=== PATIENT | male | born 1930 | race Caucasian/White ===

== ENCOUNTER 2016-12-23 17:17 | Emergency (ER) | payer OTHER ==
[~2016-12-23] VITALS: Ht 162.6 cm; Wt 78.0 kg
[~2016-12-23 17:17] MED LIST: ALLO100T PO; ALLO100T64 PO; ENAL10TA PO; METO-448 PO; TRAM50TA2 PO
[2016-12-23 17:19] VITALS: Ht 162.6 cm; Wt 78.0 kg
[2016-12-23] MEDS ORDERED: morphine 4 MG/ML VIAL IV STA (18:05)
[2016-12-23] MEDS ORDERED: ONDANSETRON 4 MG INJ IV STA (18:05)
[2016-12-23] MEDS ORDERED: SOD CHLORIDE 0.9% 1,000 ML IV STA (18:05)
[2016-12-23 18:36] LABS: ADD UMIC YES; URINE BILIRUBIN (Dip) NEGATIVE (NEGATIVE); URINE BLOOD (Dip) TRACE (NEGATIVE); URINE COLOR LT. YELLOW (YELLOW); URINE GLUCOSE (Dip) NEGATIVE (NEGATIVE); URINE KETONES (Dip) NEGATIVE (NEGATIVE); URINE LEUKOCYTE ESTERASE (Dip) NEGATIVE (NEGATIVE); URINE NITRITE (Dip) NEGATIVE (NEGATIVE); URINE TOTAL PROTEIN (Dip) 2+ (NEGATIVE); URINE UROBILINOGEN (Dip) 0.2 E.U./dL (0.1-1.0)
[2016-12-23 18:57] LABS: BACTERIA,URINE FEW; URINE RBCS 0-2 /HPF (0)
[2016-12-23 19:48] LABS: ADD SCAN DIFF NO
[2016-12-23 19:51] LABS: BASOPHILS % 0.2 % (0.0-2.0); EOSINOPHILS # 0.1 10^3/ul (0.0-0.5); EOSINOPHILS % 0.5 % (0.0-7.0); HEMATOCRIT 33.3 % (42.0-52.0); HEMOGLOBIN 11.3 g/dl (14.0-18.0); LYMPHOCYTES # 1.7 10^3/ul (0.8-2.9); LYMPHOCYTES % 12.4 % (15.0-51.0); MEAN CORPUSCULAR HEMOGLOBIN 31.9 pg (29.0-33.0); MEAN CORPUSCULAR HGB CONC 33.9 g/dl (32.0-37.0); MEAN CORPUSCULAR VOLUME 94.1 fl (82.0-101.0); MEAN PLATELET VOLUME 10.2 fl (7.4-10.4); MONOCYTES % 7.8 % (0.0-11.0); NEUTROPHIL # 10.4 10^3/ul (1.6-7.5); NEUTROPHILS % 78.3 % (39.0-77.0); PLATELET COUNT 348 10^3/UL (140-415); RED BLOOD COUNT 3.54 10^6/ul (4.70-6.10); RED CELL DISTRIBUTION WIDTH 12.6 % (11.5-14.5); WHITE BLOOD COUNT 13.3 10^3/ul (4.8-10.8)
[2016-12-23 20:01] LABS: ALBUMIN 3.9 g/dl (3.3-4.9); CHLORIDE 93 mmol/L (97-110)
[2016-12-23 20:02] LABS: SODIUM 125 mmol/L (135-144)
[2016-12-23 20:04] LABS: ALBUMIN/GLOBULIN RATIO 1.08; ALKALINE PHOSPHATASE 108 IU/L (42-121); ANION GAP 19 (8-16); ASPARTATE AMINO TRANSFERASE 42 IU/L (15-46); BILIRUBIN,INDIRECT 0.8 mg/dl (0-1.1); BILIRUBIN,TOTAL 0.8 mg/dl (0.2-1.3); BLOOD UREA NITROGEN 18 mg/dl (7-20); CARBON DIOXIDE 17 mmol/L (21-31); CREATININE 1.03 mg/dl (0.61-1.24); TOTAL PROTEIN 7.5 g/dl (6.1-8.1)
[2016-12-23 20:05] LABS: ALANINE AMINOTRANSFERASE 23 IU/L (13-69); CALCIUM 8.7 mg/dl (8.4-10.2); GLUCOSE 95 mg/dl (70-220)
--- NOTE | 2016-12-23 20:13 | RADRPT ---
PROCEDURE: Right upper quadrant ultrasound. CLINICAL INDICATION: Right upper quadrant pain. TECHNIQUE: Multiple real-time longitudinal and transverse images of the right upper quadrant of th e abdomen were acquired utilizing a curved array transducer. Images were reviewed on a high-resoluti on PACS workstation. COMPARISON: None. FINDINGS: The pancreas is not well seen. The liver is echogenic. The liver measures 9.9 cm in length. No intrahepatic biliary ductal dilata tion is seen. There is a 2.2 cm simple cyst in the right hepatic lobe. The portal vein is patent wit h hepatopetal flow. A 1.4 cm non mobile stone is identified in the gallbladder neck. The gallbladder wall is not thicke nolan. There is no pericholecystic fluid. The common bile duct measures 4 mm in diameter, not dilated . The right kidney measures 9.4 cm in length. Renal echogenicity is normal. There is no hydronephros is, urinary calculus, or renal mass. The visualized portions of the aorta and IVC are unremarkable. IMPRESSION: 1. Cholelithiasis without evidence of cholecystitis. 2. No biliary dilatation. 3. Fatty infiltration of the liver. RPTAT: HTAR .Robert Cat MD, Date Time Electronically viewed and signed by .Robert Cat MD, on 12/23/2016 20:13 .R/
[2016-12-23 20:21] LABS: TROPONIN-I < 0.012 ng/ml (0.00-0.12)
[2016-12-23] MEDS ORDERED: IOHEXOL 100 ML ONE (20:21)
[2016-12-23] MEDS ORDERED: SOD CHLORIDE 0.9% 100 ML ONE (20:21)
[2016-12-23] MEDS ORDERED: IOHEXOL 350MG/ML 50 ML BTL ONE (20:21)
[2016-12-23 20:31] LABS: INR 0.95; PROTIME 12.7 Sec (12.2-14.2)
[2016-12-23 20:32] LABS: PARTIAL THROMBOPLASTIN TIME 32.8 Sec (25.0-35.0)
[2016-12-23] MEDS ORDERED: DOCU-144 PO (20:52)
[2016-12-23] MEDS ORDERED: HYDR-902 PO (20:52)
--- NOTE | 2016-12-23 20:59 | RADRPT ---
PROCEDURE: XR Chest. CLINICAL INDICATION: Pain TECHNIQUE: AP Portable chest. COMPARISON: 03/24/2016 chest x-ray FINDINGS: The soft tissues and bones are normal. No focal infiltrates, masses, or effusions are noted. A righ t upper lobe 7 mm calcified granuloma is present. This is unchanged from prior study. The mediastin um and heart are remarkable for mild vascular calcification of the thoracic aorta. No pneumothorax is present. IMPRESSION: 1. No radiographic evidence for acute cardiopulmonary disease and unchanged from prior chest x-ray 2. 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 Mild atherosclerotic vascular disease RPTAT: HDC .Patricia Mackay MD, MD Date Time Electronically viewed and signed by .Patricia Mackay MD, on 12/23/2016 20:59 .C/
--- NOTE | 2016-12-23 21:01 | ERD ---
ER Documentation Chief Complaint Date/Time DATE: 12/23/16 TIME: 20:54 Chief Complaint back pain x 6 days HPI Patient is an 86-year-old male with hypertension and gout who presents with right-sided back pain. He also feels right-sided rib pain. It has been there for the past 6 days. It is worse with movement. He felt nausea but had no vomiting. He had 2 episodes of diarrhea over the past 24 hours. He saw his primary doctor Dr. Tasha Quesada 2 days ago and was given a prescription for Cipro and meloxicam. However the pain is still there and he wanted to get evaluated. ROS All systems reviewed and are negative except as per history of present illness. Medications Home Meds Active Scripts Docusate Sodium* (Colace*) 100 Mg Capsule, 100 MG PO TID, #30 CAP Prov:LAVON HUNTER MD 12/23/16 Hydrocodone/Acetaminophen (Cosmos 10-325 Tablet) 1 Each Tablet, 1 TAB PO Q6H Y for PAIN, #7 TAB Prov:LAVON HUNTER MD 12/23/16 Tramadol HCl (Tramadol HCl) 50 Mg Tablet, 50 MG PO Q6H Y for PAIN, #30 TAB Prov:SUZIE COPELAND 03/26/16 Metoprolol Tartrate* (Lopressor*) 25 Mg Tab, 25 MG PO DAILY for 30 Days, TAB Prov:SUZIE COPELAND 03/26/16 Reported Medications Enalapril Maleate* (Enalapril Maleate*) 10 Mg Tablet, 10 MG PO DAILY, TAB 09/29/16 Allopurinol* (Allopurinol*) 100 Mg Tablet, 200 MG PO BID, TAB 09/29/16 Allopurinol* (Zyloprim*) 100 Mg Tablet, 100 MG PO BID 02/17/13 Allergies Allergies: Coded Allergies: No Known Allergy (Unverified , 09/29/16) PMhx/Soc History of Surgery: No Anesthesia Reaction: No Hx Neurological Disorder: No Hx Respiratory Disorders: Yes Hx Cardiac Disorders: Yes (htn) Hx Psychiatric Problems: No Hx Miscellaneous Medical Probl: Yes (Htn, gout) Hx Alcohol Use: No Hx Substance Use: No Hx Tobacco Use: No Smoking Status: Never smoker FmHx Family History: No diabetes Physical Exam Vitals Vital Signs Date Time Temp Pulse Resp B/P Pulse Ox O2 Delivery O2 Flow Rate FiO2 12/23/16 17:19 98.1 99 20 170/89 99 Physical Exam Const: Mild distress secondary to pain Head: Atraumatic Eyes: Normal Conjunctiva ENT: Normal External Ears, Nose and Mouth. Neck: Full range of motion..~ No meningismus. Resp: Clear to auscultation bilaterally Cardio: Regular rate and rhythm, no murmurs Abd: Soft, non tender, non distended. Normal bowel sounds Skin: No petechiae or rashes Back: No midline or flank tenderness Ext: Right-sided rib pain with palpation but no sign of rash Neur: Awake and alert Psych: Normal Mood and Affect Result Diagram: 12/23/16192912/23/161929 Results 24 hrs Laboratory Tests Test 12/23/16 18:19 12/23/16 19:30 Urine Color LT. YELLOW Urine Clarity CLEAR Urine pH 6.0 Urine Specific Hopkins 1.010 Urine Ketones NEGATIVE Urine Nitrite NEGATIVE Urine Bilirubin NEGATIVE Urine Urobilinogen 0.2 E.U./dL Urine Leukocyte Esterase NEGATIVE Urine Microscopic RBC 0-2/HPF Urine Microscopic WBC 0-2/HPF Urine Epithelial Cells OCCASIONAL Urine Bacteria FEW Urine Hemoglobin TRACE Urine Glucose NEGATIVE% Urine Total Protein 2+ White Blood Count 13.310^3/ul Red Blood Count 3.5410^6/ul Hemoglobin 11.3g/dl Hematocrit 33.3% Mean Corpuscular Volume 94.1fl Mean Corpuscular Hemoglobin 31.9pg Mean Corpuscular Hemoglobin Concent 33.9g/dl Red Cell Distribution Width 12.6% Platelet Count 10815^3/UL Mean Platelet Volume 10.2fl Neutrophils % 78.3% Lymphocytes % 12.4% Monocytes % 7.8% Eosinophils % 0.5% Basophils % 0.2% Nucleated Red Blood Cells % 0.0/100WBC Neutrophils # 10.410^3/ul Lymphocytes # 1.710^3/ul Monocytes # 1.010^3/ul Eosinophils # 0.110^3/ul Basophils # 0.010^3/ul Nucleated Red Blood Cells # 0.010^3/ul Prothrombin Time 12.7Sec Prothrombin Time Ratio 1.0 INR International Normalized Ratio 0.95 Activated Partial Thromboplast Time 32.8Sec Sodium Level 125mmol/L Potassium Level 4.0mmol/L Chloride Level 93mmol/L Carbon Dioxide Level 17mmol/L Anion Gap 19 Blood Urea Nitrogen 18mg/dl Creatinine 1.03mg/dl Glucose Level 95mg/dl Calcium Level 8.7mg/dl Total Bilirubin 0.8mg/dl Direct Bilirubin 0.00mg/dl Indirect Bilirubin 0.8mg/dl Aspartate Amino Transf (AST/SGOT) 42IU/L Alanine Aminotransferase (ALT/SGPT) 23IU/L Alkaline Phosphatase 108IU/L Troponin I < 0.012ng/ml Total Protein 7.5g/dl Albumin 3.9g/dl Globulin 3.60g/dl Albumin/Globulin Ratio 1.08 Lipase 154U/L Current Medications Medications (Trade) Dose Ordered Sig/Karthikeyan Route PRN Reason Start Time Stop Time Status Last Admin Dose Admin Sodium Chloride (NS) 1,000 ml @ 1,000 mls/hr Q1H STAT IV 12/23/16 18:05 12/23/16 19:04 DC 12/23/16 19:25 Morphine Sulfate (morphine) 4 mg ONCE STAT IV 12/23/16 18:05 12/23/16 18:07 DC 12/23/16 19:25 Ondansetron HCl (Zofran Inj) 4 mg ONCE STAT IV 12/23/16 18:05 12/23/16 18:07 DC 12/23/16 19:25 IV Flush 10 ml 10 ml STK-MED ONCE .ROUTE 12/23/16 20:21 12/23/16 20:22 DC 12/23/16 20:47 Sodium Chloride 100 ml @ ud STK-MED ONCE .ROUTE 12/23/16 20:21 12/23/16 20:22 DC 12/23/16 20:49 Iohexol (Omnipaque) 100 ml @ ud STK-MED ONCE .ROUTE 12/23/16 20:21 12/23/16 20:22 DC 12/23/16 20:47 Iohexol (Omnipaque 350mg/ ml) 50 ml STK-MED ONCE .ROUTE 12/23/16 20:21 12/23/16 20:22 DC 12/23/16 20:48 Procedures/MDM Chest X-ray 1V Interpreted by me: Soft Tissue: No acute abnormalities Bones: No acute abnormalities Mediastinum/Cardiac Silhouette/Lungs: No acute abnormalities EKG read by me: Rate/Rhythm: Regular rate and rhythm at a normal rate Intervals: Normal Impression: No evidence of ischemia or arrhythmia CT scan of the chest, abdomen, and pelvis is pending radiology read at this time. Patient is a 86-year-old male presents with right-sided back and flank pain. The patient has anemia. The patient also has hyponatremia and a mild acidosis. The patient had full workup including EKG, chest x-ray, and CT scan of the chest, abdomen, and pelvis. The patient has CT results pending at this time. The patient will be signed out to the oncoming physician to follow-up on the CT scan results. If the CT scan is negative for pulmonary embolism or other serious etiology I believe outpatient management would be appropriate and the patient will be given a prescription for Cosmos and Colace. However the patient will need close follow-up with the primary doctor within 24 hours for reevaluation. The patient can return sooner for any worsening symptoms. At this point I see no signs of rib fracture, pneumonia, or pneumothorax. I doubt acute coronary syndrome. I doubt aortic dissection. CT scan is pending to look for pulmonary embolism. Departure Diagnosis: Primary Impression: Rib pain Additional Impressions: Back pain Back pain location: thoracic back pain Chronicity: acute Back pain laterality: right Qualified Code: M54.6 - Acute right-sided thoracic back pain Anemia Anemia type: unspecified type Qualified Code: D64.9 - Anemia, unspecified type Hyponatremia Condition: Fair Patient Instructions: Back Pain (Acute Or Chronic), Rib Contusion Additional Instructions: Llame al doctor LINDA y isa denise YURI PARA DENTRO DE 1-2 EPSTEIN.Dgale a la secretaria que nosotros le instruimos hacer esta yuri.Avise o llame si villasenor condicin se empeora antes de la yuri. Regresa aqui si peor o no mejor. LAVON HUNTER MD Dec 23, 2016 21:00
--- NOTE | 2016-12-23 21:24 | RADRPT ---
PROCEDURE: CTA Chest. CLINICAL INDICATION: Chest pain, rule out pulmonary embolism. TECHNIQUE: Direct spiral 1.25 mm axial sections were obtained from the thoracic inlet to the upper abdomen with the use of 110 cc of Omnipaque 350 nonionic intravenous contrast material. Axial MIP, coronal, and sagittal reformations were obtained. The images were reviewed on a PACS workstation. CT DIvol: 16.28 mGy. DLP: 572.03 mGy-cm. One or more of the following dose reduction techniques were used: - Automated exposure control. - Adjustment of the mA and/or kV according to patient size. - Use of iterative reconstruction technique. COMPARISON: None. FINDINGS: There is no pulmonary embolism. The main pulmonary artery is normal in caliber. There is no aortic aneurysm. The heart is normal in size. There is no pericardial effusion. There are dependent atelectatic changes in the lungs. There is no pulmonary edema or consolidation. A calcified granuloma is identified in the right upper lobe. No pleural effusion or pneumothorax is identified. No suspicious thyroid lesion is seen. There is no thoracic lymphadenopathy. The trachea and mainste m bronchi are patent. There is an acute appearing T12 burst fracture with 20% loss of anterior vertebral body height and 4 mm retropulsion. No spinal canal stenosis is seen as a result Findings in the upper abdomen are reported separately. IMPRESSION: 1. No pulmonary embolism. 2. No pulmonary edema or consolidation. 3. Acute appearing T12 burst fracture with 20% loss of anterior vertebral body height and 4 mm retr opulsion. No spinal canal stenosis is seen as a result. RPTAT: HTAR .Robert Cat MD, MD Date Time Electronically viewed and signed by .Robert Cat MD, MD on 12/23/2016 21:23 .R/
--- NOTE | 2016-12-23 21:31 | RADRPT ---
PROCEDURE: CT Abdomen and Pelvis with contrast. CLINICAL INDICATION: Flank pain. TECHNIQUE: A CT scan of the abdomen and pelvis was performed with intravenous contrast. The patie nt was scanned following the uncomplicated intravenous administration of 110 cc of Omnipaque 350. C oronal and sagittal reformatted images were obtained from the axial source images. Images were revie wed on a high-resolution PACS workstation. CTDIvol: 13.14 mGy. DLP: 727.97 mGy-cm. One or more of the following dose reduction techniques were used: - Automated exposure control. - Adjustment of the mA and/or kV according to patient size. - Use of iterative reconstruction technique. COMPARISON: None. FINDINGS: Findings in the lower chest are reported separately. There are cysts in both hepatic lobes measuring up to 2.2 cm on the right. There is a stone in the g allbladder. The common bile duct is not dilated. The spleen is not enlarged. No pancreatic lesion i s identified and there is no pancreatic ductal dilatation. The adrenal glands are unremarkable. The kidneys are normal in size. There is no perinephric fat stranding. No hydronephrosis is seen. Th ere are cysts in both kidneys measuring up to 1.4 cm on the left. There is very subtle infiltration of the central mesenteric fat, probably not clinically significant . The small and large bowel are normal in caliber. The transverse, descending, and rectosigmoid col on is underdistended, limiting evaluation for colonic wall thickening. The appendix is normal. The urinary bladder is unremarkable. The pelvic organs are within normal limits. No lymphadenopathy is identified. There is no ascites. No pneumoperitoneum is seen. There are mild t o moderate arterial calcifications. There is a small to moderate fat-containing umbilical hernia. No suspicious osseous lesion is idenitified. There are moderate to severe degenerative changes along the lower lumbar spine. IMPRESSION: 1. Limited evaluation for transverse, descending, and rectosigmoid colon wall thickening due to col onic underdistension. A mild colitis cannot be excluded in these regions. 2. Cholelithiasis. 3. Normal appendix. 4. Mild to moderate atherosclerotic arterial calcifications. 5. Small to moderate fat-containing umbilical hernia. 6. Moderate to severe degenerative changes along the lower lumbar spine. RPTAT: HTAR .Robert Cat MD, MD Date Time Electronically viewed and signed by .Robert Cat MD, MD on 12/23/2016 21:31 .R/
== END 2016-12-23 22:05 | disposition home or self-care (01) ==
LOC: FTE 17:17
DX: R07.81 Pleurodynia (principal); R11.0 Nausea; M54.6 Pain in thoracic spine; D64.9 Anemia, unspecified; E87.1 Hypo-osmolality and hyponatremia; R10.9 Unspecified abdominal pain; I10 Essential (primary) hypertension
CPT/HCPCS: 71010; 71275; 74177; 76705; 80053; 81001; 83690; 84484; 85025; 85610; 85730; 93005; J2270; J2405; J7030; Q9967; Z7610; 36415; 81003; 96374; 96375

== ENCOUNTER 2017-02-28 22:23 | Inpatient (IN) | payer OTHER ==
[~2017-02-28] VITALS: Ht 157.5 cm; Wt 75.0 kg
[~2017-02-28 22:23] MED LIST changes: +DOCU-144 PO; +HYDR-902 PO
--- NOTE | 2017-02-28 23:55 | ERA ---
ER Documentation Chief Complaint Date/Time DATE: 02/28/17 TIME: 23:55 Chief Complaint abdominal pain with diarrhea for past day HPI The patient is a 86-year-old male, presenting to the ER because of abdominal pain, associated with diarrhea for the last 5 days. She denies any hematemesis or hematochezia, denies fever, chills, neck pain, chest pain, dyspnea. The abdominal pain is diffuse and moderate, no aggravating or relieving factor. She denied dysuria, polyuria. She does not smoke, drink Past medical history: Hypertension, chronic kidney disease, gout, history of T12 burst fracture Past surgical history: She recently had esophagogastroduodenoscopy and [facility] that show ulcer, details unclear ROS All systems reviewed and are negative except as per history of present illness. Medications Home Meds Active Scripts Docusate Sodium* (Colace*) 100 Mg Capsule, 100 MG PO TID, #30 CAP Prov:LAVON HUNTER MD 12/23/16 Hydrocodone/Acetaminophen ([place] 10-325 Tablet) 1 Each Tablet, 1 TAB PO Q6H Y for PAIN, #7 TAB Prov:LAVON HUNTER MD 12/23/16 Tramadol HCl (Tramadol HCl) 50 Mg Tablet, 50 MG PO Q6H Y for PAIN, #30 TAB Prov:SUZIE COPELAND 03/26/16 Metoprolol Tartrate* (Lopressor*) 25 Mg Tab, 25 MG PO DAILY for 30 Days, TAB Prov:SUZIE COPELAND 03/26/16 Reported Medications Enalapril Maleate* (Enalapril Maleate*) 10 Mg Tablet, 10 MG PO DAILY, TAB 09/29/16 Allopurinol* (Allopurinol*) 100 Mg Tablet, 200 MG PO BID, TAB 09/29/16 Allopurinol* (Zyloprim*) 100 Mg Tablet, 100 MG PO BID 02/17/13 Allergies Allergies: Coded Allergies: No Known Allergy (Unverified , 09/29/16) PMhx/Soc History of Surgery: No Anesthesia Reaction: No Hx Neurological Disorder: No Hx Respiratory Disorders: Yes Hx Cardiac Disorders: Yes (htn) Hx Psychiatric Problems: No Hx Miscellaneous Medical Probl: Yes (Htn, gout) Hx Alcohol Use: No Hx Substance Use: No Hx Tobacco Use: No Physical Exam Vitals Vital Signs Date Time Temp Pulse Resp B/P Pulse Ox O2 Delivery O2 Flow Rate FiO2 03/01/17 05:41 73 16 131/70 95 Room Air 03/01/17 03:52 76 16 153/71 97 Room Air 03/01/17 02:30 82 16 166/89 100 Room Air 03/01/17 00:28 79 16 146/67 100 Room Air 02/28/17 22:35 97.6 79 18 113/88 99 Physical Exam Const: No acute distress. Head: Atraumatic. Eyes: Normal Conjunctiva. ENT: Normal External Ears, Nose and Mouth. Neck: Full range of motion. No meningismus. Resp: Clear to auscultation bilaterally. Cardio: Regular rate and rhythm, no murmurs. Abd: Soft, non distended, normal bowel sounds, diffuse abdominal tenderness, no rigidity, rebound, CVA tenderness Skin: No petechiae or rashes. Back: No midline or flank tenderness. Ext: No cyanosis, or edema. Neur: Awake and alert. No focal deficit Psych: Normal Mood and Affect. Result Diagram: 03/01/17 0958 03/01/17 0958 Results 24 hrs Laboratory Tests Test 02/28/17 00:02 03/01/17 02:17 White Blood Count 14.510^3/ul Red Blood Count 4.1310^6/ul Hemoglobin 11.8g/dl Hematocrit 37.1% Mean Corpuscular Volume 89.8fl Mean Corpuscular Hemoglobin 28.6pg Mean Corpuscular Hemoglobin Concent 31.8g/dl Red Cell Distribution Width 16.2% Platelet Count 71618^3/UL Mean Platelet Volume 10.5fl Neutrophils % 68.4% Lymphocytes % 23.7% Monocytes % 5.7% Eosinophils % 0.7% Basophils % 0.3% Nucleated Red Blood Cells % 0.0/100WBC Neutrophils # 9.910^3/ul Lymphocytes # 3.510^3/ul Monocytes # 0.810^3/ul Eosinophils # 0.110^3/ul Basophils # 0.110^3/ul Nucleated Red Blood Cells # 0.010^3/ul Sodium Level 137mmol/L Potassium Level 4.5mmol/L Chloride Level 103mmol/L Carbon Dioxide Level 21mmol/L Anion Gap 18 Blood Urea Nitrogen 26mg/dl Creatinine 1.70mg/dl Glucose Level 117mg/dl Calcium Level 9.3mg/dl Total Bilirubin 0.3mg/dl Direct Bilirubin 0.00mg/dl Indirect Bilirubin 0.3mg/dl Aspartate Amino Transf (AST/SGOT) 27IU/L Alanine Aminotransferase (ALT/SGPT) 35IU/L Alkaline Phosphatase 105IU/L Total Protein 7.0g/dl Albumin 3.5g/dl Globulin 3.50g/dl Albumin/Globulin Ratio 1.00 Lipase 369U/L Bedside Urine pH (LAB) 6.5 Bedside Urine Protein (LAB) 1+ Bedside Urine Glucose (UA) Negative Bedside Urine Ketones (LAB) Negative Bedside Urine Blood Negative Bedside Urine Nitrite (LAB) Negative Bedside Urine Leukocyte Esterase (L Negative Current Medications Medications (Trade) Dose Ordered Sig/Karthikeyan Route PRN Reason Start Time Stop Time Status Last Admin Dose Admin Sodium Chloride (NS) 500 ml @ 500 mls/hr Q1H ONCE IV 03/01/17 01:00 03/01/17 01:59 DC 03/01/17 00:50 Morphine Sulfate (morphine) 2 mg ONCE ONCE IV 03/01/17 04:00 03/01/17 04:01 DC 03/01/17 03:40 Ondansetron HCl 4 mg 4 mg ONCE STAT IV 03/01/17 03:32 03/01/17 03:35 DC 03/01/17 03:39 Piperacillin Sod/ Tazobactam Sod (Zosyn 2.25gm/ 50ml (Pmx)) 50 ml @ 100 mls/hr ONCE ONCE IVPB 03/01/17 04:00 03/01/17 04:29 DC 03/01/17 03:48 Morphine Sulfate (morphine) 2 mg ONCE ONCE IV 03/01/17 05:30 03/01/17 05:31 DC 03/01/17 05:24 Procedures/[place] [id number] Radiology Main Line: [phone] DIAGNOSTIC IMAGING REPORT Patient: WILLIAM BRITTON : 1930 Age: 86 Sex: M MR #: [id number] DOS: 03/01/17 0332 Ordering MD: MAGNOLIA PIERRE MD Location: E/R Room/Bed: PROCEDURE: ULTRASOUND LIMITED ABDOMEN CLINICAL INDICATION: 86-year-old male with abdominal pain. TECHNIQUE: Multiple sonographic of the right upper quadrant of the abdomen were obtained. The images were reviewed on a PACS workstation. COMPARISON: CT abdomen/pelvis March 01, 2017. FINDINGS: The pancreas is not well visualized secondary to overlying bowel gas. The liver displays homogeneous echogenicity. The liver measures 17.2 cm in length. There is a right hepatic cyst measuring approximate 2.2 x 2.0 cm. No evidence of intrahepatic biliary ductal dilatation is seen. The portal and hepatic veins are unremarkable. The gallbladder contains shadowing stones. The gallbladder wall thickness is within normal limits measuring 1.7 mm. No pericholecystic fluid is seen. The common bile duct measures 3.9 mm and is not dilated. The right kidney in the visualized secondary to overlying bowel gas. No free fluid is seen. IMPRESSION: 1. Right hepatic cyst. 2. Cholelithiasis. 3. The pancreas and right kidney were not able to be visualized secondary to overlying bowel gas. .David Koenig MD, MD Date Time Electronically viewed and signed by .David Koenig MD, MD on 03/01/2017 05:07 .M/ CC: MAGNOLIA PIERRE MD [place] [id number] Radiology Main Line: [phone] DIAGNOSTIC IMAGING REPORT Patient: WILLIAM BRITTON : 1930 Age: 86 Sex: M MR #: [id number] DOS: 03/01/17 0031 Ordering MD: MAGNOLIA PIERRE MD Location: E/R Room/Bed: PROCEDURE: CT Abdomen and Pelvis without contrast. CLINICAL INDICATION: Abdominal pain. TECHNIQUE: A CT scan of the abdomen and pelvis was performed without intravenous contrast. Coronal and sagittal reformatted images were generated. Images were reviewed on a high-resolution PACS workstation. CTDIvol: 11.84 mGy. DLP: 747.36 mGy-cm. One or more of the following dose reduction techniques were used: - Automated exposure control. - Adjustment of the mA and/or kV according to patient size. - Use of iterative reconstruction technique. COMPARISON: 12/23/2016 FINDINGS: There is mild atelectasis in both lower lobes. Evaluation of the abdominal and pelvic viscera is limited by the lack of oral and intravenous contrast. There are bilateral hepatic cysts measuring up to 2.1 cm on the right. There is a stone in the gallbladder. The common bile duct is not dilated. The spleen is not enlarged. There is subtle fat infiltration in the region of the pancreas head. The adrenal glands are unremarkable. The kidneys are normal in size. There is no perinephric fat stranding. No hydronephrosis is seen. No urinary stone is identified. Two right renal parenchymal calcifications are nonspecific. There are left renal cysts measuring up to 1.3 cm. The small and large bowel are normal in caliber. The distal descending and rectosigmoid colon is underdistended, limiting evaluation for colonic wall thickening. The appendix is normal. The urinary bladder is unremarkable. The pelvic organs are within normal limits. No lymphadenopathy is identified. There is no ascites. No pneumoperitoneum is seen. There are mild aortoiliac arterial calcifications. Severe arterial calcifications are noted in both lower extremities. There is a small to moderate fat-containing umbilical hernia. No suspicious osseous lesion is idenitified. There are acute appearing burst fractures at T12 (moderate) and L1 (mild). The fracture at T12 is worsened since the prior examination, while the L1 fracture is new. There is 4 mm retropulsion at T12, leading to mild spinal canal stenosis. IMPRESSION: 1. Subtle fat infiltration in the region of the pancreas head. This is nonspecific but might represent a mild pancreatitis or possibly peptic ulcer disease. Correlation with serum amylase and lipase levels is recommended. 2. Cholelithiasis. 3. No obstructive uropathy or urinary stone. 4. Normal appendix. 5. Limited evaluation for a distal descending and rectosigmoid colon wall thickening due to underdistension. Colitis cannot be excluded in these regions. 6. Small to moderate fat-containing umbilical hernia. 7. Mild aortoiliac arterial calcifications and severe arterial calcifications in both lower extremities. 8. Acute appearing burst fractures at T12 (moderate) and L1 (mild). The fracture at T12 is worsened since the prior examination, while the L1 fracture is new. There is 4 mm retropulsion at T12, leading to mild spinal canal stenosis. These could be further evaluated with MRI if clinically warranted. RPTAT: HTAR .Robert Cat MD, MD Date Time Electronically viewed and signed by .Robert Cat MD, on 03/01/2017 02:54 .R/ CC: MAGNOLIA PIERRE MD [place] [address] Radiology Main Line: [phone] DIAGNOSTIC IMAGING REPORT Patient: WILLIAM BRITTON : 1930 Age: 86 Sex: M MR #: [id number] DOS: 03/01/17 0000 Ordering MD: MAGNOLIA PIERRE MD Location: E/R Room/Bed: PROCEDURE: CHEST - 1 VIEW CLINICAL INDICATION: 86-year-old male with shortness of breath and febrile. TECHNIQUE: A single frontal AP semi-erect portable view of the chest was performed. The images were reviewed on a PACS workstation. COMPARISON: Chest x-ray December 23, 2016; CT abdomen/pelvis December 30, 2016. FINDINGS: The cardiomediastinal silhouette is mildly enlarged. There is a shallow inspiration. There is mild bibasilar subsegmental atelectasis. There is a calcified granuloma within the right upper lung zone measuring approximately 5 x 5 mm without interval change. There is no evidence for an infiltrate. There is no evidence for congestive heart failure. There is no evidence for pneumothorax. The osseous structures are intact. IMPRESSION: 1. Cardiomegaly. 2. Shallow inspiration. 3. Mild bibasilar subsegmental atelectasis. 4. Calcified right upper lung zone 5 mm granuloma. .David Koenig MD, MD Date Time Electronically viewed and signed by .David Koenig MD, on 03/01/2017 05:37 .M/ CC: MAGNOLIA PIERRE MD MEDICAL MAKING DECISION: The patient is a 86-year-old male, presenting with acute gallstone pancreatitis. She was treated with normal saline 500 ml normal saline for clinical dehydration, morphine 2 mg IV 2 for pain and Zofran 4 mg IV 2 for nausea and Zosyn IV empirically with good response. The differential diagnoses considered include but are not limited to cholelithiasis, cholecystitis, cystitis, pancreatitis, hepatitis, gastritis, peptic ulcer disease, gastric ulcer, appendicitis, diverticulitis, cholangitis, choledocholithiasis, partial small bowel obstruction. Departure Diagnosis: Primary Impression: Gallstone pancreatitis Additional Impression: Anemia Condition: Stable Comments Consultation: I discussed the patient with the on-call general surgeon Dr. Tamez at 5:45 AM, he was made aware of the lab, the patient treatment and condition. He accepted the consult I discussed the findings with the patient. I discussed the patient with the on- call hospitalist Dr. Calvo at 5:45 AM who was made aware of the lab, the treatment, the patient condition. The patient is admitted to medical surgery bed MAGNOLIA PIERRE MD February 28, 2017 23:55
[2017-03-01 00:42] LABS: ADD SCAN DIFF NO
[2017-03-01 00:45] LABS: BASOPHIL # 0.1 10^3/ul (0.0-0.1); BASOPHILS % 0.3 % (0.0-2.0); EOSINOPHILS # 0.1 10^3/ul (0.0-0.5); EOSINOPHILS % 0.7 % (0.0-7.0); HEMATOCRIT 37.1 % (42.0-52.0); HEMOGLOBIN 11.8 g/dl (14.0-18.0); LYMPHOCYTES # 3.5 10^3/ul (0.8-2.9); LYMPHOCYTES % 23.7 % (15.0-51.0); MEAN CORPUSCULAR HEMOGLOBIN 28.6 pg (29.0-33.0); MEAN CORPUSCULAR HGB CONC 31.8 g/dl (32.0-37.0); MEAN CORPUSCULAR VOLUME 89.8 fl (82.0-101.0); MEAN PLATELET VOLUME 10.5 fl (7.4-10.4); MONOCYTE # 0.8 10^3/ul (0.3-0.9); MONOCYTES % 5.7 % (0.0-11.0); NEUTROPHIL # 9.9 10^3/ul (1.6-7.5); NEUTROPHILS % 68.4 % (39.0-77.0); PLATELET COUNT 469 10^3/UL (140-415); RED BLOOD COUNT 4.13 10^6/ul (4.70-6.10); RED CELL DISTRIBUTION WIDTH 16.2 % (11.5-14.5); WHITE BLOOD COUNT 14.5 10^3/ul (4.8-10.8)
[2017-03-01] MEDS ORDERED: SOD CHLORIDE 0.9% 500 ML IV ONE (01:00)
[2017-03-01 01:04] LABS: ALBUMIN 3.5 g/dl (3.3-4.9); BILIRUBIN,INDIRECT 0.3 mg/dl (0-1.1); BILIRUBIN,TOTAL 0.3 mg/dl (0.2-1.3); CALCIUM 9.3 mg/dl (8.4-10.2); CREATININE 1.7 mg/dl (0.61-1.24); POTASSIUM 4.5 mmol/L (3.5-5.1)
[2017-03-01 02:16] LABS: URINE BLOOD (Dip) POC Negative (NEGATIVE)
--- NOTE | 2017-03-01 02:54 | RADRPT ---
PROCEDURE: CT Abdomen and Pelvis without contrast. CLINICAL INDICATION: Abdominal pain. TECHNIQUE: A CT scan of the abdomen and pelvis was performed without intravenous contrast. Lainez l and sagittal reformatted images were generated. Images were reviewed on a high-resolution PACS wor kstation. CTDIvol: 11.84 mGy. DLP: 747.36 mGy-cm. One or more of the following dose reduction techniques were used: - Automated exposure control. - Adjustment of the mA and/or kV according to patient size. - Use of iterative reconstruction technique. COMPARISON: 12/23/2016 FINDINGS: There is mild atelectasis in both lower lobes. Evaluation of the abdominal and pelvic viscera is limited by the lack of oral and intravenous contra st. There are bilateral hepatic cysts measuring up to 2.1 cm on the right. There is a stone in the gallb ladder. The common bile duct is not dilated. The spleen is not enlarged. There is subtle fat infilt ration in the region of the pancreas head. The adrenal glands are unremarkable. The kidneys are normal in size. There is no perinephric fat stranding. No hydronephrosis is seen. No urinary stone is identified. Two right renal parenchymal calcifications are nonspecific. There are left renal cysts measuring up to 1.3 cm. The small and large bowel are normal in caliber. The distal descending and rectosigmoid colon is und erdistended, limiting evaluation for colonic wall thickening. The appendix is normal. The urinary bladder is unremarkable. The pelvic organs are within normal limits. No lymphadenopathy is identified. There is no ascites. No pneumoperitoneum is seen. There are mild a ortoiliac arterial calcifications. Severe arterial calcifications are noted in both lower extremitie s. There is a small to moderate fat-containing umbilical hernia. No suspicious osseous lesion is idenitified. There are acute appearing burst fractures at T12 (moder ate) and L1 (mild). The fracture at T12 is worsened since the prior examination, while the L1 fract ure is new. There is 4 mm retropulsion at T12, leading to mild spinal canal stenosis. IMPRESSION: 1. Subtle fat infiltration in the region of the pancreas head. This is nonspecific but might repre sent a mild pancreatitis or possibly peptic ulcer disease. Correlation with serum amylase and lipas e levels is recommended. 2. Cholelithiasis. 3. No obstructive uropathy or urinary stone. 4. Normal appendix. 5. Limited evaluation for a distal descending and rectosigmoid colon wall thickening due to underdi stension. Colitis cannot be excluded in these regions. 6. Small to moderate fat-containing umbilical hernia. 7. Mild aortoiliac arterial calcifications and severe arterial calcifications in both lower extremi ties. 8. Acute appearing burst fractures at T12 (moderate) and L1 (mild). The fracture at T12 is worsene d since the prior examination, while the L1 fracture is new. There is 4 mm retropulsion at T12, zahida ding to mild spinal canal stenosis. These could be further evaluated with MRI if clinically warrant ed. RPTAT: HTAR .Robert Cat MD, MD Date Time Electronically viewed and signed by .Robert Cat MD, on 03/01/2017 02:54 .R/
[2017-03-01] MEDS ORDERED: ONDANSETRON 4 MG INJ IV STA (03:32)
[2017-03-01] MEDS ORDERED: PIPER-TAZO 2.25 GM (PMX) 50 ML IVPB ONE (04:00)
[2017-03-01] MEDS ORDERED: morphine 2 MG INJ IV ONE ×2 (04:00→05:30)
--- NOTE | 2017-03-01 05:07 | RADRPT ---
PROCEDURE: ULTRASOUND LIMITED ABDOMEN CLINICAL INDICATION: 86-year-old male with abdominal pain. TECHNIQUE: Multiple sonographic of the right upper quadrant of the abdomen were obtained. The imag es were reviewed on a PACS workstation. COMPARISON: CT abdomen/pelvis March 01, 2017. FINDINGS: The pancreas is not well visualized secondary to overlying bowel gas. The liver displays homogeneous echogenicity. The liver measures 17.2 cm in length. There is a right hepatic cyst measuring approximate 2.2 x 2.0 cm. No evidence of intrahepatic biliary ductal dilata tion is seen. The portal and hepatic veins are unremarkable. The gallbladder contains shadowing stones. The gallbladder wall thickness is within normal limits m easuring 1.7 mm. No pericholecystic fluid is seen. The common bile duct measures 3.9 mm and is not d ilated. The right kidney in the visualized secondary to overlying bowel gas. No free fluid is seen. IMPRESSION: 1. Right hepatic cyst. 2. Cholelithiasis. 3. The pancreas and right kidney were not able to be visualized secondary to overlying bowel gas. .David Koenig MD, MD Date Time Electronically viewed and signed by .David Koenig MD, on 03/01/2017 05:07 .M/
--- NOTE | 2017-03-01 05:37 | RADRPT ---
PROCEDURE: CHEST - 1 VIEW CLINICAL INDICATION: 86-year-old male with shortness of breath and febrile. TECHNIQUE: A single frontal AP semi-erect portable view of the chest was performed. The images we re reviewed on a PACS workstation. COMPARISON: Chest x-ray December 23, 2016; CT abdomen/pelvis December 30, 2016. FINDINGS: The cardiomediastinal silhouette is mildly enlarged. There is a shallow inspiration. There is mild bibasilar subsegmental atelectasis. There is a calcified granuloma within the right upper lung zone measuring approximately 5 x 5 mm without interval change. There is no evidence for an infiltrate. There is no evidence for congestive heart failure. There is no evidence for pneumothorax. The osseou s structures are intact. IMPRESSION: 1. Cardiomegaly. 2. Shallow inspiration. 3. Mild bibasilar subsegmental atelectasis. 4. Calcified right upper lung zone 5 mm granuloma. .David Koenig MD, MD Date Time Electronically viewed and signed by .David Koenig MD, on 03/01/2017 05:37 .M/
[2017-03-01] MEDS ORDERED: DEXTROSE 5%-0.45% NACL 1,000 ML IV SCH (08:00)
[2017-03-01 08:19] VITALS: BP 177/80; RESP 18
[2017-03-01 08:25] VITALS: Ht 157.5 cm; Wt 75.0 kg
--- NOTE | 2017-03-01 09:07 | HP ---
DATE OF ADMISSION: 03/01/2017 TIME SEEN: 4:00 a.m. CHIEF COMPLAINT: Abdominal pain and diarrhea. HISTORY OF PRESENT ILLNESS: The patient is an 86-year-old female with a history of hypertension, ch ronic kidney disease, anemia, GI bleed with history of blood transfusion and gout who was brought to the ER for abdominal pain and diarrhea. Symptoms started yesterday afternoon. The pain is diffuse but mainly located in the right upper quadrant area. Diarrhea is described as loose to watery and yellowish in color. When the patient presented to the ER, initial vitals were stable. Laboratory value shows a BUN of 2 6, creatinine 1.7. Lipase almost the end of 70. WBC 14.5, hemoglobin 11.8, platelet count 469. CT abdomen and pelvis shows septal infiltration in the region of the pancreatic head, possibly suggest ing mild pancreatitis or peptic ulcer disease. There is also cholelithiasis and acute-appearing bur st fracture at T12 and L1, worsened since last examination, but the L1 fracture is new. Right upper quadrant ultrasound shows cholelithiasis. The patient was given morphine and Zosyn while she was i n the ER. REVIEW OF SYSTEMS: A 12-point review of systems was performed and negative except as in the HPI. PAST MEDICAL HISTORY: As per HPI. SOCIAL HISTORY: Denied a history of tobacco, alcohol or illicit drug use. ALLERGIES: NO KNOWN DRUG ALLERGIES. HOME MEDICATIONS: 1. Enalapril. 2. Lopressor. 3. [place]. 4. Tramadol. 5. Colace. 6. Allopurinol. PHYSICAL EXAMINATION: VITAL SIGNS: Blood pressure 131/70, heart rate 73, respiratory rate 16, temperature 97.6, oxygen sa turation 95% on room air. GENERAL: No acute distress, answering questions appropriately. HEENT: No obvious head deformity. Extraocular movements intact. CARDIOVASCULAR: Regular rate and rhythm. No extra sounds. LUNGS: Clear. ABDOMEN: Soft. There is tenderness diffusely, but mainly in the right upper quadrant area and in t he epigastric area. No guarding, no rebound tenderness, no rigidity. EXTREMITIES: No edema. LABORATORY DATA: Pertinent positive labs as mentioned in the HPI. DIAGNOSTIC DATA: Gallbladder ultrasound and CT abdomen and pelvis with results as mentioned in the HPI. Chest x-ray shows cardiomegaly and mild bibasilar subsegmental atelectasis right upper l shanda zone 5 mm granuloma. IMPRESSION: 1. Gallstone pancreatitis. 2. Abdominal pain, most likely secondary to above. 3. Anemia, likely secondary to iron deficiency, with a history of gastrointestinal bleed in the pas t requiring blood transfusion. Hemoglobin stable. 4. Leukocytosis, likely secondary to gallstone pancreatitis. 5. Chronic kidney disease. 6. History of gout. 7. History of hypertension, blood pressure within acceptable range. 8. 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 PLAN: We will keep n.p.o. with IV fluids. We will provide pain medication and antiemetic as needed . antibiotics. Will obtain MRCP. We will also place a GI consult. ER to call the on-call s urgeon given gallstone pancreatitis. Will avoid nephrotoxins and wean down the dose of all medicati ons. Will consider nephrology consult to follow along. Incidentally, on a CT abdomen and pelvis, i t is shown that the patient has acute-appearing burst fracture at T12 and L1, and T12 is worsened fr om prior examination, so it was old while the L1 fracture is new. We will follow this up with MRI a nd place neurosurgery consult as needed. Further workup and management will be per clinical course. Dictated By: SCOTT GRIGGS/ROXANNE Conf#: [id number] DID#: [id number]
[2017-03-01] MEDS: morphine 4 MG/ML VIAL IV PRN ×3 (09:29→20:41)
[2017-03-01 10:05] LABS: ADD SCAN DIFF NO
[2017-03-01 10:08] LABS: BASOPHILS % 0.3 % (0.0-2.0); EOSINOPHILS # 0.1 10^3/ul (0.0-0.5); EOSINOPHILS % 1.1 % (0.0-7.0); HEMATOCRIT 32.5 % (42.0-52.0); HEMOGLOBIN 10.5 g/dl (14.0-18.0); LYMPHOCYTES # 1.7 10^3/ul (0.8-2.9); LYMPHOCYTES % 17.9 % (15.0-51.0); MEAN CORPUSCULAR HEMOGLOBIN 28.9 pg (29.0-33.0); MEAN CORPUSCULAR HGB CONC 32.3 g/dl (32.0-37.0); MEAN CORPUSCULAR VOLUME 89.5 fl (82.0-101.0); MONOCYTE # 0.6 10^3/ul (0.3-0.9); MONOCYTES % 6.6 % (0.0-11.0); NEUTROPHIL # 6.9 10^3/ul (1.6-7.5); NEUTROPHILS % 73.1 % (39.0-77.0); PLATELET COUNT 468 10^3/UL (140-415); RED BLOOD COUNT 3.63 10^6/ul (4.70-6.10); WHITE BLOOD COUNT 9.4 10^3/ul (4.8-10.8)
[2017-03-01 10:26] LABS: ALBUMIN 2.9 g/dl (3.3-4.9); POTASSIUM 4.2 mmol/L (3.5-5.1)
[2017-03-01 10:28] LABS: BILIRUBIN,INDIRECT 0.3 mg/dl (0-1.1); BILIRUBIN,TOTAL 0.3 mg/dl (0.2-1.3); CREATININE 1.44 mg/dl (0.61-1.24)
[2017-03-01 10:29] LABS: ALBUMIN/GLOBULIN RATIO 0.87; CALCIUM 8.7 mg/dl (8.4-10.2); TOTAL PROTEIN 6.2 g/dl (6.1-8.1)
[2017-03-01] MEDS: DEXTROSE 5%-0.45% NACL 1,000 ML IV SCH ×2 (10:30→21:13)
[2017-03-01] MEDS ORDERED: hydrALAzine 20 MG INJ IV PRN (10:30)
--- NOTE | 2017-03-01 13:01 | CONS ---
Date/Time of Note Date/Time of Note DATE: 03/01/17 TIME: 12:45 Assessment/Plan Assessment/Plan Additional Assessment/Plan Assessment * Abdominal pain T/C Gallstone pancreatitis * Hypertension * History of renal problem * Gout Plan * MRCP * Pain control * Liver profile Consultation Date/Type/Reason Admit Date/Time March 01, 2017 at 05:46 Date of Consultation: March 01, 2017 Type of Consultation: Gastroenterology Reason for Consultation Gallstone pancreatitis Referring Provider: GREGORIO ALMARAZ of Present Illness 86 year old male with past medical history of kidney diseases,hypertension,gout and anemia who presented to our emergency room with chief complaint of abdominal pain.Present condition apparently started 1 day prior to admission as epigastric abdominal pain sharp radiating to the back with associated loose stools x1,nausea but no vomiting.Patient denies any fever,chest pain nor shortness of breath.Emergency room course revealed leukocytosis WBC 14.5, hemoglobin 11.8 hematocrit 33.7,BUN 26,Creatinine 1.70 AST 27,ALT 35,alkaline phosphatase 105,Lipase 369.CT abdomen/pelvis revealed Subtle fat infiltration in the region of the pancreas head. This is nonspecific but might represent a mild pancreatitis or possibly peptic ulcer disease. Correlation with serum amylase and lipase levels is recommended. Cholelithiasis.. No obstructive uropathy or urinary stone. Normal appendix. Limited evaluation for a distal descending and rectosigmoid colon wall thickening due to underdistension. Colitis cannot be excluded in these regions.. Small to moderate fat-containing umbilical hernia. . Mild aortoiliac arterial calcifications and severe arterial calcifications in both lower extremities. Acute appearing burst fractures at T12 (moderate) and L1 (mild). The fracture at T12 is worsened since the prior examination, while the L1 fracture is new. There is 4 mm retropulsion at T12, leading to mild spinal canal stenosis. These could be further evaluated with MRI if clinically warranted..Ultrasound revealed Right hepatic cyst.. Cholelithiasis.. The pancreas and right kidney were not able to be visualized secondary to overlying bowel gas. Subsequent examination on the floor,patientstill complains of abdominal pain but denies nausea,vomiting Constitutional: improved, no complaints Eyes: no complaints ENT: no complaints Respiratory: no complaints Cardiovascular: no complaints Gastrointestinal: decreased appetite, nausea, pain, vomiting Genitourinary: no complaints Musculoskeletal: no complaints Skin: no complaints Neurologic: no complaints Endocrine: no complaints Lymphatic: no complaints Psychological: nl mood/affect, no complaints Immunologic: no complaints Past Medical History Medical History: hypertension, renal disease, other (gout) Past Surgical History Past Surgical Hx: no surgical history Family History Significant Family History: no pertinent family hx Social History Smoking Status: Never smoker Exam/Review of Systems Vital Signs Vitals Vital Signs Date Time Temp Pulse Resp B/P Pulse Ox O2 Delivery O2 Flow Rate FiO2 03/01/17 08:19 98.2 80 18 177/80 97 03/01/17 05:58 Nasal Cannula 2.0 Intake and Output 02/28/17 02/28/17 03/01/17 15:00 23:00 07:00 Intake Total 500 ml Balance 500 ml Exam Constitutional: alert, frail Head: atraumatic, normocephalic Eyes: PERRL, nl conjunctiva, nl sclera Neck: non-tender, supple Respiratory: clear to auscultation, diminished breath sounds, normal air movement Cardiovascular: nl pulses, regular rate and rhythm Gastrointestinal: bowel sounds, nl liver, spleen, non-tender, soft, No rebound or guarding Musculoskeletal: nl extremities to inspection, nl gait and stance Extremities: normal pulses Neurological: nl speech, nl strength Skin: nl turgor, No rash or lesions Lymph: nl lymph nodes Results Result Diagram: 03/01/1795703/01/17 0958 Results 24 hrs Laboratory Tests Test 03/01/17 02:17 03/01/17 09:58 Bedside Urine pH (LAB) 6.5 Bedside Urine Protein (LAB) 1+ H Bedside Urine Glucose (UA) Negative Bedside Urine Ketones (LAB) Negative Bedside Urine Blood Negative Bedside Urine Nitrite (LAB) Negative Bedside Urine Leukocyte Esterase (L Negative White Blood Count 9.4 # Red Blood Count 3.63 L Hemoglobin 10.5 L Hematocrit 32.5 L Mean Corpuscular Volume 89.5 Mean Corpuscular Hemoglobin 28.9 L Mean Corpuscular Hemoglobin Concent 32.3 Red Cell Distribution Width 16.0 H Platelet Count 468 H Mean Platelet Volume 9.0 Neutrophils % 73.1 Lymphocytes % 17.9 Monocytes % 6.6 Eosinophils % 1.1 Basophils % 0.3 Nucleated Red Blood Cells % 0.0 Neutrophils # 6.9 Lymphocytes # 1.7 Monocytes # 0.6 Eosinophils # 0.1 Basophils # 0.0 Nucleated Red Blood Cells # 0.0 Sodium Level 134 L Potassium Level 4.2 Chloride Level 110 Carbon Dioxide Level 22 Anion Gap 6 #L Blood Urea Nitrogen 22 H Creatinine 1.44 H Glucose Level 103 Calcium Level 8.7 Total Bilirubin 0.3 Direct Bilirubin 0.00 Indirect Bilirubin 0.3 Aspartate Amino Transf (AST/SGOT) 21 Alanine Aminotransferase (ALT/SGPT) 30 Alkaline Phosphatase 87 Total Protein 6.2 Albumin 2.9 L Globulin 3.30 H Albumin/Globulin Ratio 0.87 Medications Medications Current Medications Morphine Sulfate (morphine) 4 mg Q4H PRN IV pain Last administered on t 09:29; Admin Dose 4 MG; Start 03/01/17 at 08:00 Ondansetron HCl (Zofran Inj) 4 mg Q6H PRN IV N/V; Start 03/01/17 at 08:00 Hydralazine HCl (Apresoline) 10 mg Q6H PRN IV SBP>160; Start 03/01/17 at 10:30 Allopurinol (Zyloprim) 100 mg BID PO ; Start 03/01/17 at 21:00 Enalapril Maleate (Vasotec) 10 mg DAILY PO ; Start 03/02/17 at 09:00 Metoprolol Tartrate 25 mg 25 mg DAILY PO ; Start 03/02/17 at 09:00 Dextrose/Sodium Chloride 1,000 ml @ 100 mls/hr Q10H IV ; Start 03/01/17 at 10: 30 Piperacillin Sod/ Tazobactam Sod (Zosyn 2.25gm/ 50ml (Pmx)) 50 ml @ 100 mls/hr Q8 IVPB ; Start 03/01/17 at 14:00 CALVIN THAKUR MD March 01, 2017 12:56
[2017-03-01] MEDS: PIPER-TAZO 2.25 GM (PMX) 50 ML IVPB SCH ×2 (13:46→21:22)
--- NOTE | 2017-03-01 15:04 | CONS ---
Date/Time of Note Date/Time of Note DATE: 03/01/17 TIME: 15:03 Consultation Date/Type/Reason Admit Date/Time March 01, 2017 at 05:46 Initial Consult Date 03/01/17 Type of Consultation: hemeon Referring Provider: GREGORIO ALMARAZ 24 HR Interval Summary Free Text/Dictation DUPLICATE NOTE Exam/Review of Systems Vital Signs Vitals Vital Signs Date Time Temp Pulse Resp B/P Pulse Ox O2 Delivery O2 Flow Rate FiO2 03/01/17 08:19 98.2 80 18 177/80 97 03/01/17 05:58 Nasal Cannula 2.0 Intake and Output 02/28/17 02/28/17 03/01/17 15:00 23:00 07:00 Intake Total 500 ml Balance 500 ml Results Result Diagram: 03/01/1758 03/01/17 0958 Results 24 hrs Laboratory Tests Test 03/01/17 02:17 03/01/17 09:58 Bedside Urine pH (LAB) 6.5 Bedside Urine Protein (LAB) 1+ H Bedside Urine Glucose (UA) Negative Bedside Urine Ketones (LAB) Negative Bedside Urine Blood Negative Bedside Urine Nitrite (LAB) Negative Bedside Urine Leukocyte Esterase (L Negative White Blood Count 9.4 # Red Blood Count 3.63 L Hemoglobin 10.5 L Hematocrit 32.5 L Mean Corpuscular Volume 89.5 Mean Corpuscular Hemoglobin 28.9 L Mean Corpuscular Hemoglobin Concent 32.3 Red Cell Distribution Width 16.0 H Platelet Count 468 H Mean Platelet Volume 9.0 Neutrophils % 73.1 Lymphocytes % 17.9 Monocytes % 6.6 Eosinophils % 1.1 Basophils % 0.3 Nucleated Red Blood Cells % 0.0 Neutrophils # 6.9 Lymphocytes # 1.7 Monocytes # 0.6 Eosinophils # 0.1 Basophils # 0.0 Nucleated Red Blood Cells # 0.0 Sodium Level 134 L Potassium Level 4.2 Chloride Level 110 Carbon Dioxide Level 22 Anion Gap 6 #L Blood Urea Nitrogen 22 H Creatinine 1.44 H Glucose Level 103 Calcium Level 8.7 Total Bilirubin 0.3 Direct Bilirubin 0.00 Indirect Bilirubin 0.3 Aspartate Amino Transf (AST/SGOT) 21 Alanine Aminotransferase (ALT/SGPT) 30 Alkaline Phosphatase 87 Total Protein 6.2 Albumin 2.9 L Globulin 3.30 H Albumin/Globulin Ratio 0.87 Medications Medications Current Medications Morphine Sulfate (morphine) 4 mg Q4H PRN IV pain Last administered on 13:43; Admin Dose 4 MG; Start 03/01/17 at 08:00 Ondansetron HCl (Zofran Inj) 4 mg Q6H PRN IV N/V; Start 03/01/17 at 08:00 Hydralazine HCl (Apresoline) 10 mg Q6H PRN IV SBP>160; Start 03/01/17 at 10:30 Allopurinol (Zyloprim) 100 mg BID PO ; Start 03/01/17 at 21:00 Enalapril Maleate (Vasotec) 10 mg DAILY PO ; Start 03/02/17 at 09:00 Metoprolol Tartrate 25 mg 25 mg DAILY PO ; Start 03/02/17 at 09:00 Dextrose/Sodium Chloride 1,000 ml @ 100 mls/hr Q10H IV ; Start 03/01/17 at 10: 30 Piperacillin Sod/ Tazobactam Sod (Zosyn 2.25gm/ 50ml (Pmx)) 50 ml @ 100 mls/hr Q8 IVPB Last administered on 03/01/17 13:46; Admin Dose 100 MLS/HR; Start at 14:00 NARAYAN FERNÁNDEZ MD March 01, 2017 15:04
--- NOTE | 2017-03-01 15:06 | CONS ---
Date/Time of Note Date/Time of Note DATE: 03/01/17 TIME: 15:06 Assessment/Plan Assessment/Plan Chief Complaint/Hosp Course Anemia, likely secondary to iron deficiency, with a history of gastrointestinal bleed in the past requiring blood transfusion. Hemoglobin stable. Leukocytosis, likely secondary to gallstone pancreatitis THROMBOCYTOSIS- REACTIVE CONT TO MONITOR Gallstone pancreatitis. Abdominal pain, most likely secondary to above.. Chronic kidney disease. History of gout. History of hypertension, blood pressure within acceptable range. 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 Problems: Consultation Date/Type/Reason Admit Date/Time March 01, 2017 at 05:46 Initial Consult Date 03/01/17 Type of Consultation: hemeon Referring Provider: GREGORIO ALMARAZ 24 HR Interval Summary Free Text/Dictation ALL NOTED D/W RN W-UP IN PROGRESS COUNT REVIEWED Exam/Review of Systems Vital Signs Vitals Vital Signs Date Time Temp Pulse Resp B/P Pulse Ox O2 Delivery O2 Flow Rate FiO2 03/01/17 08:19 98.2 80 18 177/80 97 03/01/17 05:58 Nasal Cannula 2.0 Intake and Output 02/28/17 02/28/17 03/01/17 15:00 23:00 07:00 Intake Total 500 ml Balance 500 ml Exam Constitutional: alert, obese, No distress Psych: nl mood/affect, No anxiety Head: atraumatic, normocephalic Eyes: EOMI, PERRL, nl conjunctiva, No icteric ENMT: mucosa pink and moist, nl external ears & nose Neck: non-tender, No jvd Respiratory: normal air movement, No congested cough, No labored breathing Cardiovascular: edema (Minimal), regular rate and rhythm Gastrointestinal: soft, tender (Epigastric minimally without Rock's), No distended, No rebound or guarding Musculoskeletal: nl extremities to inspection, No joint tenderness Extremities: normal pulses, No calf tenderness, No cyanosis Neurological: nl mental status, nl speech, No nl strength Skin: No diaphoresis, No rash or lesions Lymph: nl lymph nodes Results Result Diagram: 03/01/1758 03/01/1758 Results 24 hrs Laboratory Tests Test 03/01/17 02:17 03/01/17 09:58 Bedside Urine pH (LAB) 6.5 Bedside Urine Protein (LAB) 1+ H Bedside Urine Glucose (UA) Negative Bedside Urine Ketones (LAB) Negative Bedside Urine Blood Negative Bedside Urine Nitrite (LAB) Negative Bedside Urine Leukocyte Esterase (L Negative White Blood Count 9.4 # Red Blood Count 3.63 L Hemoglobin 10.5 L Hematocrit 32.5 L Mean Corpuscular Volume 89.5 Mean Corpuscular Hemoglobin 28.9 L Mean Corpuscular Hemoglobin Concent 32.3 Red Cell Distribution Width 16.0 H Platelet Count 468 H Mean Platelet Volume 9.0 Neutrophils % 73.1 Lymphocytes % 17.9 Monocytes % 6.6 Eosinophils % 1.1 Basophils % 0.3 Nucleated Red Blood Cells % 0.0 Neutrophils # 6.9 Lymphocytes # 1.7 Monocytes # 0.6 Eosinophils # 0.1 Basophils # 0.0 Nucleated Red Blood Cells # 0.0 Sodium Level 134 L Potassium Level 4.2 Chloride Level 110 Carbon Dioxide Level 22 Anion Gap 6 #L Blood Urea Nitrogen 22 H Creatinine 1.44 H Glucose Level 103 Calcium Level 8.7 Total Bilirubin 0.3 Direct Bilirubin 0.00 Indirect Bilirubin 0.3 Aspartate Amino Transf (AST/SGOT) 21 Alanine Aminotransferase (ALT/SGPT) 30 Alkaline Phosphatase 87 Total Protein 6.2 Albumin 2.9 L Globulin 3.30 H Albumin/Globulin Ratio 0.87 Medications Medications Current Medications Morphine Sulfate (morphine) 4 mg Q4H PRN IV pain Last administered on t 13:43; Admin Dose 4 MG; Start 03/01/17 at 08:00 Ondansetron HCl (Zofran Inj) 4 mg Q6H PRN IV N/V; Start 03/01/17 at 08:00 Hydralazine HCl (Apresoline) 10 mg Q6H PRN IV SBP>160; Start 03/01/17 at 10:30 Allopurinol (Zyloprim) 100 mg BID PO ; Start 03/01/17 at 21:00 Enalapril Maleate (Vasotec) 10 mg DAILY PO ; Start 03/02/17 at 09:00 Metoprolol Tartrate 25 mg 25 mg DAILY PO ; Start 03/02/17 at 09:00 Dextrose/Sodium Chloride 1,000 ml @ 100 mls/hr Q10H IV ; Start 03/01/17 at 10: 30 Piperacillin Sod/ Tazobactam Sod (Zosyn 2.25gm/ 50ml (Pmx)) 50 ml @ 100 mls/hr Q8 IVPB Last administered on 03/01/17t 13:46; Admin Dose 100 MLS/HR; Start at 14:00 NARAYAN FERNÁNDEZ MD March 01, 2017 15:06
--- NOTE | 2017-03-01 17:37 | RADRPT ---
PROCEDURE: MRI MRCP. CLINICAL INDICATION: Abdominal pain. There is a question of choledocholithiasis. TECHNIQUE: MRCP was performed without contrast. 3-D/multiplanar reformations and coronal rotating MIP images of the biliary tree were performed by the technologist and at an independent workstation. COMPARISON: Ultrasound and CT dated 03/01/2017. FINDINGS: There is no intra or extrahepatic biliary ductal dilatation or filling defect within the biliary zander e. There is no pancreatic ductal dilatation or intraluminal filling defect. There is a 5 mm cyst co ntiguous with the pancreatic duct in the pancreatic neck, consistent with a dilated radicle. Additi onal sub-centimeter dilated radicles are also seen within the pancreatic tail. There is a 11 mm sto ne within the gallbladder neck. There is no gallbladder wall thickening or pericholecystic fluid or inflammatory change. There are multiple cysts within the liver. There are also simple appearing cysts within both kidneys . IMPRESSION: 1. No intra or extrahepatic biliary ductal dilatation or choledocholithiasis, as questioned. 2. Moderately distended gallbladder with a stone in the neck, which does not appear to be obstructi ng. 3. Benign hepatic and renal cysts. 4. Benign cysts sub-centimeter cysts within the pancreas, consistent with dilated radicles. RPTAT: EE .Ethan Joyner MD, MD Date Time Electronically viewed and signed by .Ethan Joyner MD, MD on 03/01/2017 17:37 .P/
[2017-03-01] MEDS: ALLOPURINOL 100 MG TAB PO SCH (20:41)
[2017-03-01 20:45] VITALS: BP 145/71; RESP 16
--- NOTE | 2017-03-01 23:30 | CONS ---
Date/Time of Note Date/Time of Note DATE: 03/01/17 TIME: 23:30 Assessment/Plan Assessment/Plan Chief Complaint/Hosp Course 1. Abdominal pain secondary to gallstone pancreatitis. -Trend labs -Judicious fluid management -MRCP -GI follow-up 2. BMI 30 -Nutrition optimization encouraged -Exercise as possible encouraged 3. Anemia, likely secondary to iron deficiency. -Monitor 4. Leukocytosis, likely secondary to above 5. Chronic kidney disease. -Judicious fluid management -Avoid nephrotoxic agents 6. Gout. -Medical management 7. Hypertension -Diet and medication control -Weight optimization encouraged Thank you very much for consulting me in this patient's care, Problems: Consultation Date/Type/Reason Admit Date/Time March 01, 2017 at 05:46 Date of Consultation: March 01, 2017 Type of Consultation: General surgical Reason for Consultation Abdominal pain Gallstones Pancreatitis BMI 30 Referring Provider: MAGNOLIA PIERRE MD Hx of Present Illness René Lincoln is an 86yo female with multiple significant comorbidities was brought to the ER for abdominal pain and diarrhea. Symptoms started yesterday afternoon. The pain is diffuse but mainly located in the right upper quadrant area. Diarrhea is described as loose to watery and yellowish in color. Pain does not radiate. Pain is crampy. No previous history of the same. No associated nausea or vomiting. No fevers or chills. No cough. No seizure. No blood per mouth or rectum. No dysuria. No trauma or sick contacts. In the ER patient was found to have evidence of gallstones on pancreatitis. She is admitted and surgical consult is obtained further evaluation and treatment Constitutional: improved, no complaints Eyes: no complaints ENT: no complaints Respiratory: no complaints Cardiovascular: no complaints Gastrointestinal: decreased appetite, nausea, pain, vomiting Genitourinary: no complaints Musculoskeletal: no complaints Skin: no complaints Neurologic: no complaints Endocrine: no complaints Lymphatic: no complaints Psychological: nl mood/affect, no complaints Immunologic: no complaints Past Medical History Hypertension Chronic kidney disease Anemia GI bleed Hx of blood transfusion Gout BMI 30 Gallstones Acute pancreatitis T12 and L1 fracture with spinal canal stenosis. Past Surgical History Past Surgical Hx: no surgical history Family History Significant Family History: no pertinent family hx Social History Alcohol Use: none Smoking Status: Never smoker Drug Use: none Exam/Review of Systems Vital Signs Vitals Vital Signs Date Time Temp Pulse Resp B/P Pulse Ox O2 Delivery O2 Flow Rate FiO2 03/01/17 20:45 98.5 68 16 145/71 98 03/01/17 05:58 Nasal Cannula 2.0 Intake and Output 02/28/17 02/28/17 03/01/17 15:00 23:00 07:00 Intake Total 500 ml Balance 500 ml Exam Constitutional: alert, obese, No distress Psych: nl mood/affect, No anxiety Head: atraumatic, normocephalic Eyes: EOMI, PERRL, nl conjunctiva, No icteric ENMT: mucosa pink and moist, nl external ears & nose Neck: non-tender, No jvd Respiratory: normal air movement, No congested cough, No labored breathing Cardiovascular: edema (Minimal), regular rate and rhythm Gastrointestinal: soft, tender (Epigastric minimally without Rock's), No distended, No rebound or guarding Musculoskeletal: nl extremities to inspection, No joint tenderness Extremities: normal pulses, No calf tenderness, No cyanosis Neurological: nl mental status, nl speech, No nl strength Skin: No diaphoresis, No rash or lesions Lymph: nl lymph nodes Results Result Diagram: 03/01/1795703/01/1758 Results 24 hrs Laboratory Tests Test 03/01/17 02:17 03/01/17 09:58 Bedside Urine pH (LAB) 6.5 Bedside Urine Protein (LAB) 1+ H Bedside Urine Glucose (UA) Negative Bedside Urine Ketones (LAB) Negative Bedside Urine Blood Negative Bedside Urine Nitrite (LAB) Negative Bedside Urine Leukocyte Esterase (L Negative White Blood Count 9.4 # Red Blood Count 3.63 L Hemoglobin 10.5 L Hematocrit 32.5 L Mean Corpuscular Volume 89.5 Mean Corpuscular Hemoglobin 28.9 L Mean Corpuscular Hemoglobin Concent 32.3 Red Cell Distribution Width 16.0 H Platelet Count 468 H Mean Platelet Volume 9.0 Neutrophils % 73.1 Lymphocytes % 17.9 Monocytes % 6.6 Eosinophils % 1.1 Basophils % 0.3 Nucleated Red Blood Cells % 0.0 Neutrophils # 6.9 Lymphocytes # 1.7 Monocytes # 0.6 Eosinophils # 0.1 Basophils # 0.0 Nucleated Red Blood Cells # 0.0 Sodium Level 134 L Potassium Level 4.2 Chloride Level 110 Carbon Dioxide Level 22 Anion Gap 6 #L Blood Urea Nitrogen 22 H Creatinine 1.44 H Glucose Level 103 Calcium Level 8.7 Total Bilirubin 0.3 Direct Bilirubin 0.00 Indirect Bilirubin 0.3 Aspartate Amino Transf (AST/SGOT) 21 Alanine Aminotransferase (ALT/SGPT) 30 Alkaline Phosphatase 87 Total Protein 6.2 Albumin 2.9 L Globulin 3.30 H Albumin/Globulin Ratio 0.87 Medications Medications Current Medications Morphine Sulfate (morphine) 4 mg Q4H PRN IV pain Last administered on 20:41; Admin Dose 4 MG; Start 03/01/17 at 08:00 Ondansetron HCl (Zofran Inj) 4 mg Q6H PRN IV N/V; Start 03/01/17 at 08:00 Hydralazine HCl (Apresoline) 10 mg Q6H PRN IV SBP>160; Start 03/01/17 at 10:30 Allopurinol (Zyloprim) 100 mg BID PO Last administered on 03/01/17 20:41; Admin Dose 100 MG; Start 03/01/17 at 21:00 Enalapril Maleate (Vasotec) 10 mg DAILY PO ; Start 03/02/17 at 09:00 Metoprolol Tartrate 25 mg 25 mg DAILY PO ; Start 03/02/17 at 09:00 Dextrose/Sodium Chloride 1,000 ml @ 100 mls/hr Q10H IV Last administered on 21:13; Admin Dose 100 MLS/HR; Start 03/01/17 at 10:30 Piperacillin Sod/ Tazobactam Sod (Zosyn 2.25gm/ 50ml (Pmx)) 50 ml @ 100 mls/hr Q8 IVPB Last administered on 03/01/17 21:22; Admin Dose 100 MLS/HR; Start at 14:00 KAREN LASSITER MD March 01, 2017 23:30
[2017-03-02 05:28] LABS: AMYLASE 91 U/L (11-123)
[2017-03-02 05:30] LABS: CHOL/HDL RATIO 4.8 RATIO; MAGNESIUM 1.3 mg/dl (1.7-2.5); PHOSPHORUS 4.5 mg/dl (2.5-4.9)
[2017-03-02] MEDS: PIPER-TAZO 2.25 GM (PMX) 50 ML IVPB SCH ×3 (05:35→21:49)
[2017-03-02] MEDS: DEXTROSE 5%-0.45% NACL 1,000 ML IV SCH ×2 (06:30→09:07)
[2017-03-02] MEDS ORDERED: MAGNESIUM SULFATE 2 GM/50 ML 50 ML IVPB ONE (07:00)
[2017-03-02] MEDS: morphine 4 MG/ML VIAL IV PRN ×4 (08:25→21:49)
[2017-03-02] MEDS: ALLOPURINOL 100 MG TAB PO SCH ×2 (08:25→20:15)
[2017-03-02] MEDS: METOPROLOL 25 MG TAB PO SCH (08:29)
[2017-03-02] MEDS: ENALAPRIL 10 MG TAB PO SCH (08:29)
[2017-03-02 08:51] VITALS: BP 143/71; RESP 18
[2017-03-02] MEDS ORDERED: MAGNESIUM CHLORIDE (SR) 64 MG TAB PO ONE (10:30)
--- NOTE | 2017-03-02 16:11 | PN ---
Date/Time of Note Date/Time of Note DATE: 03/02/17 TIME: 16:07 Assessment/Plan VTE Prophylaxis VTE Prophylaxis Intervention: SCD's Lines/Catheters IV [facility] Peripheral IV Urinary Cath still in place: No Assessment/Plan Chief Complaint/Hosp Course Problems: Assessment/Plan Assessment * Abdominal pain Cholelithiasis * Hypertension * History of renal problem * Gout Plan * may have clear liquids * surgery referral * continie present management Subjective 24 Hr Interval Summary Free Text/Dictation * course reviewed with RN * Patient seen and examined * no abdominal pain * MRI 1. Subtle fat infiltration in the region of the pancreas head. This is nonspecific but might represent a mild pancreatitis or possibly peptic ulcer disease. Correlation with serum amylase and lipase levels is recommended.. Cholelithiasis.. No obstructive uropathy or urinary stone. . Normal appendix. Limited evaluation for a distal descending and rectosigmoid colon wall thickening due to underdistension. Colitis cannot be excluded in these regions. Small to moderate fat-containing umbilical hernia. Mild aortoiliac arterial calcifications and severe arterial calcifications in both lower extremities. Acute appearing burst fractures at T12 (moderate) and L1 (mild). The fracture at T12 is worsened since the prior examination, while the L1 fracture is new. There is 4 mm retropulsion at T12, leading to mild spinal canal stenosis. These could be further evaluated with MRI if clinically warranted. Exam/Review of Systems Vital Signs Vitals Vital Signs Date Time Temp Pulse Resp B/P Pulse Ox O2 Delivery O2 Flow Rate FiO2 03/02/17 08:51 98.3 87 18 143/71 96 03/01/17 05:58 Nasal Cannula 2.0 Intake and Output 03/01/17 03/01/17 03/02/17 15:00 23:00 07:00 Intake Total 950 ml 50 ml 1250 ml Output Total 350 ml Balance 950 ml 50 ml 900 ml Exam Constitutional: alert, frail Eyes: nl conjunctiva Neck: non-tender, supple Respiratory: clear to auscultation, normal air movement Cardiovascular: nl pulses, regular rate and rhythm Gastrointestinal: non-tender, soft Musculoskeletal: nl extremities to inspection, nl gait and stance Extremities: normal pulses Results Result Diagram: 03/01/17 0958 03/01/1758 Results 24 hrs Laboratory Tests Test 03/02/17 04:28 Hemoglobin A1c 5.6 Phosphorus Level 4.5 Magnesium Level 1.3 L Triglycerides Level 120 Cholesterol Level 181 LDL Cholesterol, Calculated 120 HDL Cholesterol 37 Cholesterol/HDL Ratio 4.8 Amylase Level 91 Lipase 104 Medications Medications Current Medications Morphine Sulfate (morphine) 4 mg Q4H PRN IV pain Last administered on 12:22; Admin Dose 4 MG; Start 03/01/17 at 08:00 Ondansetron HCl (Zofran Inj) 4 mg Q6H PRN IV N/V; Start 03/01/17 at 08:00 Hydralazine HCl (Apresoline) 10 mg Q6H PRN IV SBP>160; Start 03/01/17 at 10:30 Allopurinol (Zyloprim) 100 mg BID PO Last administered on 03/02/17 08:25; Admin Dose 100 MG; Start 03/01/17 at 21:00 Enalapril Maleate (Vasotec) 10 mg DAILY PO Last administered on 03/02/17 08:29 ; Admin Dose 10 MG; Start 03/02/17 at 09:00 Metoprolol Tartrate 25 mg 25 mg DAILY PO Last administered on 03/02/17 08:29; Admin Dose 25 MG; Start 03/02/17 at 09:00 Dextrose/Sodium Chloride 1,000 ml @ 100 mls/hr Q10H IV Last administered on 09:07; Admin Dose 100 MLS/HR; Start 03/01/17 at 10:30 Piperacillin Sod/ Tazobactam Sod (Zosyn 2.25gm/ 50ml (Pmx)) 50 ml @ 100 mls/hr Q8 IVPB Last administered on 03/02/17 13:27; Admin Dose 100 MLS/HR; Start at 14:00 CALVIN THAKUR MD March 02, 2017 16:11
[2017-03-02] MEDS: ONDANSETRON 4 MG INJ IV PRN (16:18)
--- NOTE | 2017-03-02 16:46 | PN ---
Date/Time of Note Date/Time of Note DATE: 03/02/17 TIME: 16:45 Assessment/Plan VTE Prophylaxis VTE Prophylaxis Intervention: SCD's Lines/Catheters IV Catheter Type (from Nrsg): Peripheral IV Urinary Cath still in place: No Assessment/Plan Assessment/Plan 86 yo M admitted for abd pain found to have gallstone pancreatitis. MRCP without clear evidence of stone, GI deferring to gen surg for procedural intervention #pancreatitis: as above, general surgery already on consult (dr claire) cont zosyn pending surgical eval #HTN: cont home meds diet: CLD dispo: pending surgical eval Subjective 24 Hr Interval Summary Free Text/Dictation Pt reports pain is slightly improved. Resting comfortably. Exam/Review of Systems Vital Signs Vitals Vital Signs Date Time Temp Pulse Resp B/P Pulse Ox O2 Delivery O2 Flow Rate FiO2 03/02/17 08:51 98.3 87 18 143/71 96 03/01/17 05:58 Nasal Cannula 2.0 Intake and Output 03/01/17 03/01/17 03/02/17 15:00 23:00 07:00 Intake Total 950 ml 50 ml 1250 ml Output Total 350 ml Balance 950 ml 50 ml 900 ml Exam nad, laying in bed no mrg lungs clear abd soft no le edema no rashes responds to questions appropriately Results Result Diagram: 03/01/17 0958 03/01/17 0958 Results 24 hrs Laboratory Tests Test 03/02/17 04:28 Hemoglobin A1c 5.6 Phosphorus Level 4.5 Magnesium Level 1.3 L Triglycerides Level 120 Cholesterol Level 181 LDL Cholesterol, Calculated 120 HDL Cholesterol 37 Cholesterol/HDL Ratio 4.8 Amylase Level 91 Lipase 104 Medications Medications Current Medications Morphine Sulfate (morphine) 4 mg Q4H PRN IV pain Last administered on 16:18; Admin Dose 4 MG; Start 03/01/17 at 08:00 Ondansetron HCl (Zofran Inj) 4 mg Q6H PRN IV N/V Last administered on 16:18; Admin Dose 4 MG; Start 03/01/17 at 08:00 Hydralazine HCl (Apresoline) 10 mg Q6H PRN IV SBP>160; Start 03/01/17 at 10:30 Allopurinol (Zyloprim) 100 mg BID PO Last administered on 03/02/17 08:25; Admin Dose 100 MG; Start 03/01/17 at 21:00 Enalapril Maleate (Vasotec) 10 mg DAILY PO Last administered on 03/02/17 08:29 ; Admin Dose 10 MG; Start 03/02/17 at 09:00 Metoprolol Tartrate 25 mg 25 mg DAILY PO Last administered on 03/02/17 08:29; Admin Dose 25 MG; Start 03/02/17 at 09:00 Dextrose/Sodium Chloride 1,000 ml @ 100 mls/hr Q10H IV Last administered on 09:07; Admin Dose 100 MLS/HR; Start 03/01/17 at 10:30 Piperacillin Sod/ Tazobactam Sod (Zosyn 2.25gm/ 50ml (Pmx)) 50 ml @ 100 mls/hr Q8 IVPB Last administered on 03/02/17 13:27; Admin Dose 100 MLS/HR; Start at 14:00 Procedures Procedures MRCP results reviewed Subtle fat infiltration in the region of the pancreas head. This is nonspecific but might represent a mild pancreatitis or possibly peptic ulcer disease. Correlation with serum amylase and lipase levels is recommended.. Cholelithiasis.. No obstructive uropathy or urinary stone. . Normal appendix. Limited evaluation for a distal descending and rectosigmoid colon wall thickening due to underdistension. Colitis cannot be excluded in these regions. Small to moderate fat-containing umbilical hernia. Mild aortoiliac arterial calcifications and severe arterial calcifications in both lower extremities. Acute appearing burst fractures at T12 (moderate) and L1 (mild). The fracture at T12 is worsened since the prior examination, while the L1 fracture is new. There is 4 mm retropulsion at T12, leading to mild spinal canal stenosis. These could be further evaluated with MRI if clinically warranted. LORI MIRANDA MD March 02, 2017 16:46
[2017-03-02 20:01] VITALS: BP 110/60; PULSE 77; RESP 18
--- NOTE | 2017-03-02 23:01 | CONS ---
Date/Time of Note Date/Time of Note DATE: 03/02/17 TIME: 22:56 Assessment/Plan Assessment/Plan Chief Complaint/Hosp Course Anemia, likely secondary to iron deficiency, with a history of gastrointestinal bleed in the past requiring blood transfusion. Hemoglobin stable. Leukocytosis, likely secondary to gallstone pancreatitis THROMBOCYTOSIS- REACTIVE CONT TO MONITOR Gallstone pancreatitis. Abdominal pain, most likely secondary to above.. Chronic kidney disease. History of gout. History of hypertension, blood pressure within acceptable range. 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 Problems: Consultation Date/Type/Reason Admit Date/Time March 01, 2017 at 05:46 Initial Consult Date 03/01/17 Type of Consultation: hemeon Referring Provider: GREGORIO ALMARAZ 24 HR Interval Summary Free Text/Dictation ALL NOTED NO NEW EVENTS MRI- NOTED Exam/Review of Systems Vital Signs Vitals Vital Signs Date Time Temp Pulse Resp B/P Pulse Ox O2 Delivery O2 Flow Rate FiO2 03/02/17 20:01 98.0 77 18 110/60 97 Room Air 03/01/17 05:58 2.0 Intake and Output 03/01/17 03/01/17 03/02/17 15:00 23:00 07:00 Intake Total 950 ml 50 ml 1250 ml Output Total 350 ml Balance 950 ml 50 ml 900 ml Exam Const: No acute distress. Head: Atraumatic. Eyes: Normal Conjunctiva. ENT: Normal External Ears, Nose and Mouth. Neck: Full range of motion. No meningismus. Resp: Clear to auscultation bilaterally. Cardio: Regular rate and rhythm, no murmurs. Abd: Soft, non distended, normal bowel sounds, diffuse abdominal tenderness, no rigidity, rebound, CVA tenderness Skin: No petechiae or rashes. Back: No midline or flank tenderness. Ext: No cyanosis, or edema. Neur: Awake and alert. No focal deficit Psych: Normal Mood and Affect. Results Result Diagram: 03/01/1758 03/01/17957 Results 24 hrs Laboratory Tests Test 03/02/17 04:28 Hemoglobin A1c 5.6 Phosphorus Level 4.5 Magnesium Level 1.3 L Triglycerides Level 120 Cholesterol Level 181 LDL Cholesterol, Calculated 120 HDL Cholesterol 37 Cholesterol/HDL Ratio 4.8 Amylase Level 91 Lipase 104 Medications Medications Current Medications Morphine Sulfate (morphine) 4 mg Q4H PRN IV pain Last administered on 21:49; Admin Dose 4 MG; Start 03/01/17 at 08:00 Ondansetron HCl (Zofran Inj) 4 mg Q6H PRN IV N/V Last administered on 16:18; Admin Dose 4 MG; Start 03/01/17 at 08:00 Allopurinol (Zyloprim) 100 mg BID PO Last administered on 03/02/17 20:15; Admin Dose 100 MG; Start 03/01/17 at 21:00 Enalapril Maleate (Vasotec) 10 mg DAILY PO Last administered on 03/02/17 08:29 ; Admin Dose 10 MG; Start 03/02/17 at 09:00 Metoprolol Tartrate 25 mg 25 mg DAILY PO Last administered on 03/02/17 08:29; Admin Dose 25 MG; Start 03/02/17 at 09:00 Piperacillin Sod/ Tazobactam Sod (Zosyn 2.25gm/ 50ml (Pmx)) 50 ml @ 100 mls/hr Q8 IVPB Last administered on 03/02/17 21:49; Admin Dose 100 MLS/HR; Start at 14:00 Procedures Procedures MRI 1. Subtle fat infiltration in the region of the pancreas head. This is nonspecific but might represent a mild pancreatitis or possibly peptic ulcer disease. Correlation with serum amylase and lipase levels is recommended.. Cholelithiasis.. No obstructive uropathy or urinary stone. . Normal appendix. Limited evaluation for a distal descending and rectosigmoid colon wall thickening due to underdistension. Colitis cannot be excluded in these regions. Small to moderate fat-containing umbilical hernia. Mild aortoiliac arterial calcifications and severe arterial calcifications in both lower extremities. Acute appearing burst fractures at T12 (moderate) and L1 (mild). The fracture at T12 is worsened since the prior examination, while the L1 fracture is new. There is 4 mm retropulsion at T12, leading to mild spinal canal stenosis. These could be further evaluated with MRI if clinically warranted. NARAYAN FERNÁNDEZ MD March 02, 2017 23:01
[2017-03-03] MEDS: PIPER-TAZO 2.25 GM (PMX) 50 ML IVPB SCH ×2 (05:14→14:40)
[2017-03-03 08:00] VITALS: BP 123/65; RESP 20
[2017-03-03] MEDS: morphine 4 MG/ML VIAL IV PRN ×4 (08:39→20:33)
[2017-03-03] MEDS: ENALAPRIL 10 MG TAB PO SCH (08:40)
[2017-03-03] MEDS: ALLOPURINOL 100 MG TAB PO SCH ×2 (08:40→20:32)
[2017-03-03] MEDS: METOPROLOL 25 MG TAB PO SCH (08:40)
--- NOTE | 2017-03-03 14:25 | CONS ---
Date/Time of Note Date/Time of Note DATE: 02/28/17 TIME: 20:20 vk le Assessment/Plan Assessment/Plan Chief Complaint/Hosp Course Anemia, likely secondary to iron deficiency, with a history of gastrointestinal bleed in the past requiring blood transfusion. Hemoglobin stable. cont to monitor closely no indications for transfusion at present Leukocytosis, likely secondary to gallstone pancreatitis THROMBOCYTOSIS- REACTIVE CONT TO MONITOR Gallstone pancreatitis. Abdominal pain, most likely secondary to above.. Chronic kidney disease. History of gout. History of hypertension, blood pressure within acceptable range. 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 Problems: Consultation Date/Type/Reason Admit Date/Time March 01, 2017 at 05:46 Type of Consultation: hemeon Reason for Consultation anemia gib Referring Provider: SCOTT TONEY MD Hx of Present Illness The patient is an 86-year-old female with a history of hypertension, chronic kidney disease, anemia, GI bleed with history of blood transfusion and gout who was brought to the ER for abdominal pain and diarrhea. Symptoms started yesterday afternoon. The pain is diffuse but mainly located in the right upper quadrant area. Diarrhea is described as loose to watery and yellowish in color. When the patient presented to the ER, initial vitals were stable. Laboratory value shows a BUN of 26, creatinine 1.7. Lipase almost the end of 70. WBC 14.5 , hemoglobin 11.8, platelet count 469. CT abdomen and pelvis shows septal infiltration in the region of the pancreatic head, possibly suggesting mild pancreatitis or peptic ulcer disease. There is also cholelithiasis and acute- appearing burst fracture at T12 and L1, worsened since last examination, but the L1 fracture is new. Right upper quadrant ultrasound shows cholelithiasis. The patient was given morphine and Zosyn while she was in the ER. i was asked to provide hemeon consult REVIEW OF SYSTEMS: A 12-point review of systems was performed and negative except as in the HPI. PAST MEDICAL HISTORY: As per HPI. SOCIAL HISTORY: Denied a history of tobacco, alcohol or illicit drug use. ALLERGIES: NO KNOWN DRUG ALLERGIES. HOME MEDICATIONS: 1. Enalapril. 2. Lopressor. 3. [place]. 4. Tramadol. 5. Colace. 6. Allopurinol. Constitutional: improved, no complaints Eyes: no complaints ENT: no complaints Respiratory: no complaints Cardiovascular: no complaints Gastrointestinal: decreased appetite, nausea, pain, vomiting Genitourinary: no complaints Musculoskeletal: no complaints Skin: no complaints Neurologic: no complaints Endocrine: no complaints Lymphatic: no complaints Psychological: nl mood/affect, no complaints Immunologic: no complaints Past Medical History Medical History: hypertension, renal disease, other (gout) Past Surgical History Past Surgical Hx: no surgical history Social History Smoking Status: Never smoker Exam/Review of Systems Vital Signs Vitals vss Exam PHYSICAL EXAMINATION: GENERAL: No acute distress, answering questions appropriately. HEENT: No obvious head deformity. Extraocular movements intact. CARDIOVASCULAR: Regular rate and rhythm. No extra sounds. LUNGS: Clear. ABDOMEN: Soft. There is tenderness diffusely, but mainly in the right upper quadrant area and in the epigastric area. No guarding, no rebound tenderness, no rigidity. EXTREMITIES: No edema. LABORATORY DATA: Pertinent positive labs as mentioned in the HPI. DIAGNOSTIC DATA: Gallbladder ultrasound and CT abdomen and pelvis with results as mentioned in the HPI. Chest x-ray shows cardiomegaly and mild bibasilar subsegmental atelectasis right upper lung zone 5 mm granuloma. Results Result Diagram: 03/01/17 0958 03/01/17 0958 Results 24 hrs Result Diagram: 03/01/17 0958 03/01/17 0958 Results 24 hrs Laboratory Tests Test 02/28/17 00:02 03/01/17 02:17 White Blood Count 14.510^3/ul Red Blood Count 4.1310^6/ul Hemoglobin 11.8g/dl Hematocrit 37.1% Mean Corpuscular Volume 89.8fl Mean Corpuscular Hemoglobin 28.6pg Mean Corpuscular Hemoglobin Concent 31.8g/dl Red Cell Distribution Width 16.2% Platelet Count 90337^3/UL Mean Platelet Volume 10.5fl Neutrophils % 68.4% Lymphocytes % 23.7% Monocytes % 5.7% Eosinophils % 0.7% Basophils % 0.3% Nucleated Red Blood Cells % 0.0/100WBC Neutrophils # 9.910^3/ul Lymphocytes # 3.510^3/ul Monocytes # 0.810^3/ul Eosinophils # 0.110^3/ul Basophils # 0.110^3/ul Nucleated Red Blood Cells # 0.010^3/ul Sodium Level 137mmol/L Potassium Level 4.5mmol/L Chloride Level 103mmol/L Carbon Dioxide Level 21mmol/L Anion Gap 18 Blood Urea Nitrogen 26mg/dl Creatinine 1.70mg/dl Glucose Level 117mg/dl Calcium Level 9.3mg/dl Total Bilirubin 0.3mg/dl Direct Bilirubin 0.00mg/dl Indirect Bilirubin 0.3mg/dl Aspartate Amino Transf (AST/SGOT) 27IU/L Alanine Aminotransferase (ALT/SGPT) 35IU/L Alkaline Phosphatase 105IU/L Total Protein 7.0g/dl Albumin 3.5g/dl Globulin 3.50g/dl Albumin/Globulin Ratio 1.00 Lipase 369U/L Bedside Urine pH (LAB) 6.5 Bedside Urine Protein (LAB) 1+ Bedside Urine Glucose (UA) Negative Bedside Urine Ketones (LAB) Negative Bedside Urine Blood Negative Bedside Urine Nitrite (LAB) Negative Bedside Urine Leukocyte Esterase (L Negative Current Medications Medications (Trade) Dose Ordered Sig/Karthikeyan Route PRN Reason Start Time Stop Time Status Last Admin Dose Admin Sodium Chloride (NS) 500 ml @ 500 mls/hr Q1H ONCE IV 03/01/17 01:00 03/01/17 01:59 DC 03/01/17 00:50 Morphine Sulfate (morphine) 2 mg ONCE ONCE IV 03/01/17 04:00 03/01/17 04:01 DC 03/01/17 03:40 Ondansetron HCl 4 mg 4 mg ONCE STAT IV 03/01/17 03:32 03/01/17 03:35 DC 03/01/17 03:39 Piperacillin Sod/ Tazobactam Sod (Zosyn 2.25gm/ 50ml (Pmx)) 50 ml @ 100 mls/hr ONCE ONCE IVPB 03/01/17 04:00 03/01/17 04:29 DC 03/01/17 03:48 Morphine Sulfate (morphine) 2 mg ONCE ONCE IV 03/01/17 05:30 03/01/17 05:31 DC 03/01/17 05:24 Procedures/[place] [id number] Radiology Main Line: [phone] DIAGNOSTIC IMAGING REPORT Patient: WILLIAM BRITTON : 1930 Age: 86 Sex: M MR #: [id number] DOS: 03/01/17 0332 Ordering MD: MAGNOLIA PIERRE MD Location: E/R Room/Bed: PROCEDURE: ULTRASOUND LIMITED ABDOMEN CLINICAL INDICATION: 86-year-old male with abdominal pain. TECHNIQUE: Multiple sonographic of the right upper quadrant of the abdomen were obtained. The images were reviewed on a PACS workstation. COMPARISON: CT abdomen/pelvis March 01, 2017. FINDINGS: The pancreas is not well visualized secondary to overlying bowel gas. The liver displays homogeneous echogenicity. The liver measures 17.2 cm in length. There is a right hepatic cyst measuring approximate 2.2 x 2.0 cm. No evidence of intrahepatic biliary ductal dilatation is seen. The portal and hepatic veins are unremarkable. The gallbladder contains shadowing stones. The gallbladder wall thickness is within normal limits measuring 1.7 mm. No pericholecystic fluid is seen. The common bile duct measures 3.9 mm and is not dilated. The right kidney in the visualized secondary to overlying bowel gas. No free fluid is seen. IMPRESSION: 1. Right hepatic cyst. 2. Cholelithiasis. 3. The pancreas and right kidney were not able to be visualized secondary to overlying bowel gas. .David Koenig MD, MD Date Time Electronically viewed and signed by .David Koenig MD, MD on 03/01/2017 05:07 .M/ CC: MAGNOLIA PIERRE MD [place] [id number] Radiology Main Line: [phone] DIAGNOSTIC IMAGING REPORT Patient: WILLIAM BRITTON : 1930 Age: 86 Sex: M MR #: [id number] DOS: 03/01/17 0031 Ordering MD: MAGNOLIA PIERRE MD Location: E/R Room/Bed: PROCEDURE: CT Abdomen and Pelvis without contrast. CLINICAL INDICATION: Abdominal pain. TECHNIQUE: A CT scan of the abdomen and pelvis was performed without intravenous contrast. Coronal and sagittal reformatted images were generated. Images were reviewed on a high-resolution PACS workstation. CTDIvol: 11.84 mGy. DLP: 747.36 mGy-cm. One or more of the following dose reduction techniques were used: - Automated exposure control. - Adjustment of the mA and/or kV according to patient size. - Use of iterative reconstruction technique. COMPARISON: 12/23/2016 FINDINGS: There is mild atelectasis in both lower lobes. Evaluation of the abdominal and pelvic viscera is limited by the lack of oral and intravenous contrast. There are bilateral hepatic cysts measuring up to 2.1 cm on the right. There is a stone in the gallbladder. The common bile duct is not dilated. The spleen is not enlarged. There is subtle fat infiltration in the region of the pancreas head. The adrenal glands are unremarkable. The kidneys are normal in size. There is no perinephric fat stranding. No hydronephrosis is seen. No urinary stone is identified. Two right renal parenchymal calcifications are nonspecific. There are left renal cysts measuring up to 1.3 cm. The small and large bowel are normal in caliber. The distal descending and rectosigmoid colon is underdistended, limiting evaluation for colonic wall thickening. The appendix is normal. The urinary bladder is unremarkable. The pelvic organs are within normal limits. No lymphadenopathy is identified. There is no ascites. No pneumoperitoneum is seen. There are mild aortoiliac arterial calcifications. Severe arterial calcifications are noted in both lower extremities. There is a small to moderate fat-containing umbilical hernia. No suspicious osseous lesion is idenitified. There are acute appearing burst fractures at T12 (moderate) and L1 (mild). The fracture at T12 is worsened since the prior examination, while the L1 fracture is new. There is 4 mm retropulsion at T12, leading to mild spinal canal stenosis. IMPRESSION: 1. Subtle fat infiltration in the region of the pancreas head. This is nonspecific but might represent a mild pancreatitis or possibly peptic ulcer disease. Correlation with serum amylase and lipase levels is recommended. 2. Cholelithiasis. 3. No obstructive uropathy or urinary stone. 4. Normal appendix. 5. Limited evaluation for a distal descending and rectosigmoid colon wall thickening due to underdistension. Colitis cannot be excluded in these regions. 6. Small to moderate fat-containing umbilical hernia. 7. Mild aortoiliac arterial calcifications and severe arterial calcifications in both lower extremities. 8. Acute appearing burst fractures at T12 (moderate) and L1 (mild). The fracture at T12 is worsened since the prior examination, while the L1 fracture is new. There is 4 mm retropulsion at T12, leading to mild spinal canal stenosis. These could be further evaluated with MRI if clinically warranted. RPTAT: HTAR .Robert Cat MD, MD Date Time Electronically viewed and signed by .Robert Cat MD, MD on 03/01/2017 02:54 .R/ CC: MAGNOLIA PIERRE MD [place] [id number] Radiology Main Line: [phone] DIAGNOSTIC IMAGING REPORT Patient: WILLIAM BRITTON : 1930 Age: 86 Sex: M MR #: [id number] DOS: 03/01/17 0000 Ordering MD: MAGNOLIA PIERRE MD Location: E/R Room/Bed: PROCEDURE: CHEST - 1 VIEW CLINICAL INDICATION: 86-year-old male with shortness of breath and febrile. TECHNIQUE: A single frontal AP semi-erect portable view of the chest was performed. The images were reviewed on a PACS workstation. COMPARISON: Chest x-ray December 23, 2016; CT abdomen/pelvis December 30, 2016. FINDINGS: The cardiomediastinal silhouette is mildly enlarged. There is a shallow inspiration. There is mild bibasilar subsegmental atelectasis. There is a calcified granuloma within the right upper lung zone measuring approximately 5 x 5 mm without interval change. There is no evidence for an infiltrate. There is no evidence for congestive heart failure. There is no evidence for pneumothorax. The osseous structures are intact. IMPRESSION: 1. Cardiomegaly. 2. Shallow inspiration. 3. Mild bibasilar subsegmental atelectasis. 4. Calcified right upper lung zone 5 mm granuloma. .David Koenig MD, MD Date Time Electronically viewed and signed by .David Koenig MD, on 03/01/2017 05:37 .M/ Medications Medications Current Medications Morphine Sulfate (morphine) 4 mg Q4H PRN IV pain Last administered on 12:17; Admin Dose 4 MG; Start 03/01/17 at 08:00 Ondansetron HCl (Zofran Inj) 4 mg Q6H PRN IV N/V Last administered on 16:18; Admin Dose 4 MG; Start 03/01/17 at 08:00 Allopurinol (Zyloprim) 100 mg BID PO Last administered on 03/03/17 08:40; Admin Dose 100 MG; Start 03/01/17 at 21:00 Enalapril Maleate (Vasotec) 10 mg DAILY PO Last administered on 03/03/17 08:40 ; Admin Dose 10 MG; Start 03/02/17 at 09:00 Metoprolol Tartrate 25 mg 25 mg DAILY PO Last administered on 03/03/17 08:40; Admin Dose 25 MG; Start 03/02/17 at 09:00 Piperacillin Sod/ Tazobactam Sod (Zosyn 2.25gm/ 50ml (Pmx)) 50 ml @ 100 mls/hr Q8 IVPB Last administered on 03/03/17 05:14; Admin Dose 100 MLS/HR; Start at 14:00 NARAYAN FERNÁNDEZ MD March 03, 2017 14:25
--- NOTE | 2017-03-03 15:49 | PN ---
Date/Time of Note Date/Time of Note DATE: 03/03/17 TIME: 15:46 Assessment/Plan VTE Prophylaxis VTE Prophylaxis Intervention: SCD's Lines/Catheters IV [facility] [place] Urinary Cath still in place: No Assessment/Plan Chief Complaint/Hosp Course Problems: Assessment/Plan Assessment * Abdominal pain Cholelithiasis * Hypertension * History of renal problem * Gout Plan * may have clear liquids * surgery reevaluation * continue present management Subjective 24 Hr Interval Summary Free Text/Dictation * Course reviewed with RN * Patient seen and examined * On and off abdominal pain Exam/Review of Systems Vital Signs Vitals Vital Signs Date Time Temp Pulse Resp B/P Pulse Ox O2 Delivery O2 Flow Rate FiO2 03/03/17 08:00 98.7 81 20 123/65 97 03/02/17 20:01 Room Air 03/01/17 05:58 2.0 Intake and Output 03/02/17 03/02/17 03/03/17 15:00 23:00 07:00 Intake Total 100 ml 970 ml 800 ml Output Total 550 ml 900 ml Balance 100 ml 420 ml -100 ml Exam Constitutional: alert, frail Neck: non-tender, supple Respiratory: clear to auscultation, normal air movement Cardiovascular: nl pulses, regular rate and rhythm Gastrointestinal: bowel sounds, non-tender, soft, No rebound or guarding Musculoskeletal: nl extremities to inspection Extremities: normal pulses Results Result Diagram: 03/01/1795703/01/17957 Medications Medications Current Medications Morphine Sulfate (morphine) 4 mg Q4H PRN IV pain Last administered on 12:17; Admin Dose 4 MG; Start 03/01/17 at 08:00 Ondansetron HCl (Zofran Inj) 4 mg Q6H PRN IV N/V Last administered on 16:18; Admin Dose 4 MG; Start 03/01/17 at 08:00 Allopurinol (Zyloprim) 100 mg BID PO Last administered on 03/03/17 08:40; Admin Dose 100 MG; Start 03/01/17 at 21:00 Enalapril Maleate (Vasotec) 10 mg DAILY PO Last administered on 03/03/17 08:40 ; Admin Dose 10 MG; Start 03/02/17 at 09:00 Metoprolol Tartrate 25 mg 25 mg DAILY PO Last administered on 03/03/17 08:40; Admin Dose 25 MG; Start 03/02/17 at 09:00 Piperacillin Sod/ Tazobactam Sod (Zosyn 2.25gm/ 50ml (Pmx)) 50 ml @ 100 mls/hr Q8 IVPB Last administered on 03/03/17 14:40; Admin Dose 100 MLS/HR; Start at 14:00 CALVIN THAKUR MD March 03, 2017 15:49
--- NOTE | 2017-03-03 16:32 | PN ---
Date/Time of Note Date/Time of Note DATE: 03/03/17 TIME: 16:31 Assessment/Plan VTE Prophylaxis VTE Prophylaxis Intervention: SCD's Lines/Catheters IV Catheter Type (from Nrsg): Saline Lock Urinary Cath still in place: No Assessment/Plan Assessment/Plan Assessment/Plan 86 yo M admitted for abd pain found to have gallstone pancreatitis. MRCP without clear evidence of stone, GI deferring to gen surg for procedural intervention #pancreatitis: as above, general surgery already on consult (dr claire) stop zosyn as no evidence of cholangitis. I asked the nurse to reach out to Dr Claire/gen surg team today for pt re eval #HTN: cont home meds diet: CLD as per GI dispo: pending surgical eval Subjective 24 Hr Interval Summary Free Text/Dictation abd pain stable. family at bedside wondering what next step is Exam/Review of Systems Vital Signs Vitals Vital Signs Date Time Temp Pulse Resp B/P Pulse Ox O2 Delivery O2 Flow Rate FiO2 03/03/17 08:00 98.7 81 20 123/65 97 03/02/17 20:01 Room Air 03/01/17 05:58 2.0 Intake and Output 03/02/17 03/02/17 03/03/17 15:00 23:00 07:00 Intake Total 100 ml 970 ml 800 ml Output Total 550 ml 900 ml Balance 100 ml 420 ml -100 ml Exam laying in bed, moaning at times rrr no mrg lungs clear abd soft no le edema Results Result Diagram: 03/01/17 0958 03/01/1758 Medications Medications Current Medications Morphine Sulfate (morphine) 4 mg Q4H PRN IV pain Last administered on 12:17; Admin Dose 4 MG; Start 03/01/17 at 08:00 Ondansetron HCl (Zofran Inj) 4 mg Q6H PRN IV N/V Last administered on 16:18; Admin Dose 4 MG; Start 03/01/17 at 08:00 Allopurinol (Zyloprim) 100 mg BID PO Last administered on 03/03/17 08:40; Admin Dose 100 MG; Start 03/01/17 at 21:00 Enalapril Maleate (Vasotec) 10 mg DAILY PO Last administered on 03/03/17 08:40 ; Admin Dose 10 MG; Start 03/02/17 at 09:00 Metoprolol Tartrate 25 mg 25 mg DAILY PO Last administered on 03/03/17 08:40; Admin Dose 25 MG; Start 03/02/17 at 09:00 Piperacillin Sod/ Tazobactam Sod (Zosyn 2.25gm/ 50ml (Pmx)) 50 ml @ 100 mls/hr Q8 IVPB Last administered on 03/03/17 14:40; Admin Dose 100 MLS/HR; Start at 14:00 LORI MIRANDA MD March 03, 2017 16:32
[2017-03-03 19:28] VITALS: BP 107/59; RESP 20
--- NOTE | 2017-03-03 21:26 | CONS ---
Date/Time of Note Date/Time of Note DATE: 03/03/17 TIME: 21:25 Assessment/Plan Assessment/Plan Chief Complaint/Hosp Course Anemia, likely secondary to iron deficiency, with a history of gastrointestinal bleed in the past requiring blood transfusion. Hemoglobin stable. cont to monitor closely no indications for transfusion at present Leukocytosis, likely secondary to gallstone pancreatitis THROMBOCYTOSIS- REACTIVE CONT TO MONITOR Gallstone pancreatitis. Abdominal pain, most likely secondary to above.. Chronic kidney disease. History of gout. History of hypertension, blood pressure within acceptable range. 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 Problems: Consultation Date/Type/Reason Admit Date/Time March 01, 2017 at 05:46 Initial Consult Date 03/01/17 [facility] Referring Provider: SCOTT TONEY MD 24 HR Interval Summary Free Text/Dictation abd pain stable. count reviewed Exam/Review of Systems Vital Signs Vitals Vital Signs Date Time Temp Pulse Resp B/P Pulse Ox O2 Delivery O2 Flow Rate FiO2 03/03/17 19:28 97.9 89 20 107/59 96 03/02/17 20:01 Room Air 03/01/17 05:58 2.0 Intake and Output 03/02/17 03/02/17 03/03/17 15:00 23:00 07:00 Intake Total 100 ml 970 ml 800 ml Output Total 550 ml 900 ml Balance 100 ml 420 ml -100 ml Exam GENERAL: No acute distress, answering questions appropriately. HEENT: No obvious head deformity. Extraocular movements intact. CARDIOVASCULAR: Regular rate and rhythm. No extra sounds. LUNGS: Clear. ABDOMEN: Soft. There is tenderness diffusely, but mainly in the right upper quadrant area and in the epigastric area. No guarding, no rebound tenderness, no rigidity. EXTREMITIES: No edema. Results Result Diagram: 03/01/1758 03/01/17 0958 Medications Medications Current Medications Morphine Sulfate (morphine) 4 mg Q4H PRN IV pain Last administered on 20:33; Admin Dose 4 MG; Start 03/01/17 at 08:00 Ondansetron HCl (Zofran Inj) 4 mg Q6H PRN IV N/V Last administered on 16:18; Admin Dose 4 MG; Start 03/01/17 at 08:00 Allopurinol (Zyloprim) 100 mg BID PO Last administered on 03/03/17 20:32; Admin Dose 100 MG; Start 03/01/17 at 21:00 Enalapril Maleate (Vasotec) 10 mg DAILY PO Last administered on 03/03/17 08:40 ; Admin Dose 10 MG; Start 03/02/17 at 09:00 Metoprolol Tartrate (Lopressor) 25 mg DAILY PO Last administered on 03/03/17 08:40; Admin Dose 25 MG; Start 03/02/17 at 09:00 NARAYAN FERNÁNDEZ MD March 03, 2017 21:26
--- NOTE | 2017-03-04 01:52 | PN ---
Date/Time of Note Date/Time of Note DATE: 03/02/17 TIME: 11:50 Assessment/Plan Lines/Catheters IV C[facility] Type (from [facility] Saline Lock [place] in Place (from [facility]): No Assessment/Plan Chief Complaint/Hosp Course 1. Abdominal pain secondary to gallstone pancreatitis. MRCP noted. Improving. -Trend labs -Judicious fluid management -GI follow-up 2. BMI 30 -Nutrition optimization encouraged -Exercise as possible encouraged 3. Anemia, likely secondary to iron deficiency. -Monitor 4. Leukocytosis, likely secondary to above 5. Chronic kidney disease. -Judicious fluid management -Avoid nephrotoxic agents 6. Gout. -Medical management 7. Hypertension -Diet and medication control -Weight optimization encouraged Thank you Late entry 03/02 Problems: Subjective 24 Hr Interval Summary Pain slowly improving. No fevers or chills. No nausea vomiting. No chest pain or shortness of breath. No cough. No seizure. No blood per mouth or rectum. No dysuria. MRCP noted. Exam/Review of Systems Vital Signs Vitals Vital Signs Date Time Temp Pulse Resp B/P Pulse Ox O2 Delivery O2 Flow Rate FiO2 03/03/17 19:28 97.9 89 20 107/59 96 03/02/17 20:01 Room Air 03/01/17 05:58 2.0 Intake and Output 03/03/17 03/03/17 03/04/17 15:00 23:00 07:00 Intake Total 1170 ml Output Total 350 ml Balance 820 ml Exam Free Text/Dictation Constitutional: alert, obese, No distress Psych: nl mood/affect, No anxiety Head: atraumatic, normocephalic Eyes: EOMI, PERRL, nl conjunctiva, No icteric ENMT: mucosa pink and moist, nl external ears & nose Neck: non-tender, No jvd Respiratory: normal air movement, No congested cough, No labored breathing Cardiovascular: edema (Minimal), regular rate and rhythm Gastrointestinal: soft, tender (Epigastric minimally without Rock's), No distended, No rebound or guarding Musculoskeletal: nl extremities to inspection, No joint tenderness Extremities: normal pulses, No calf tenderness, No cyanosis Neurological: nl mental status, nl speech, No nl strength Skin: No diaphoresis, No rash or lesions Lymph: nl lymph nodes Results Free Text/Dictation MRCP 1. No intra or extrahepatic biliary ductal dilatation or choledocholithiasis, as questioned. 2. Moderately distended gallbladder with a stone in the neck, which does not appear to be obstructing. 3. Benign hepatic and renal cysts. 4. Benign cysts sub-centimeter cysts within the pancreas, consistent with dilated radicles. Result Diagram: 03/01/17 0958 03/01/17 0958 KAREN LASSITER MD Mar 04, 2017 01:52
--- NOTE | 2017-03-04 01:55 | PN ---
Date/Time of Note Date/Time of Note DATE: 03/03/17 TIME: 23:52 Assessment/Plan Lines/Catheters IV Cathe[facility] Type (from [facility] Saline Lock Holland in Place (from [facility]): No Assessment/Plan Chief Complaint/Hosp Course 1. Abdominal pain secondary to gallstone pancreatitis. MRCP noted. Improving. -Trend labs -Judicious fluid management -GI follow-up 2. BMI 30 -Nutrition optimization encouraged -Exercise as possible encouraged 3. Anemia, likely secondary to iron deficiency. -Monitor 4. Leukocytosis, likely secondary to above. Resolved. 5. Acute on Chronic kidney disease. -Judicious fluid management -Avoid nephrotoxic agents 6. Gout. -Medical management 7. Hypertension -Diet and medication control -Weight optimization encouraged Thank you Late entry 03/03 Problems: Subjective 24 Hr Interval Summary Pain slowly improving. No fevers or chills. No nausea vomiting. No chest pain or shortness of breath. No cough. No seizure. No blood per mouth or rectum. No dysuria. MRCP noted. Exam/Review of Systems Vital Signs Vitals Vital Signs Date Time Temp Pulse Resp B/P Pulse Ox O2 Delivery O2 Flow Rate FiO2 03/03/17 19:28 97.9 89 20 107/59 96 03/02/17 20:01 Room Air 03/01/17 05:58 2.0 Intake and Output 03/03/17 03/03/17 03/04/17 15:00 23:00 07:00 Intake Total 1170 ml Output Total 350 ml Balance 820 ml Exam Free Text/Dictation Constitutional: alert, obese, No distress Psych: nl mood/affect, No anxiety Head: atraumatic, normocephalic Eyes: EOMI, PERRL, nl conjunctiva, No icteric ENMT: mucosa pink and moist, nl external ears & nose Neck: non-tender, No jvd Respiratory: normal air movement, No congested cough, No labored breathing Cardiovascular: edema (Minimal), regular rate and rhythm Gastrointestinal: soft, tender (Epigastric minimally without Rock's), No distended, No rebound or guarding Musculoskeletal: nl extremities to inspection, No joint tenderness Extremities: normal pulses, No calf tenderness, No cyanosis Neurological: nl mental status, nl speech, No nl strength Skin: No diaphoresis, No rash or lesions Lymph: nl lymph nodes Results Result Diagram: 03/01/17 0958 03/01/17 0958 KAREN LASSITER MD Mar 04, 2017 01:55
[2017-03-04] MEDS: morphine 4 MG/ML VIAL IV PRN ×4 (04:17→20:25)
[2017-03-04 07:25] VITALS: BP 141/69; RESP 18
[2017-03-04] MEDS: ENALAPRIL 10 MG TAB PO SCH (09:39)
[2017-03-04] MEDS: ONDANSETRON 4 MG INJ IV PRN (09:39)
[2017-03-04] MEDS: METOPROLOL 25 MG TAB PO SCH (09:39)
[2017-03-04] MEDS: ALLOPURINOL 100 MG TAB PO SCH ×2 (09:40→20:25)
[2017-03-04] MEDS ORDERED: MAGNESIUM SULFATE 1 GM/D5W 100 ML IVPB ONE (10:00)
--- NOTE | 2017-03-04 15:04 | PN ---
Date/Time of Note Date/Time of Note DATE: 03/04/17 TIME: 15:03 Assessment/Plan VTE Prophylaxis VTE Prophylaxis Intervention: SCD's Lines/Catheters IV Catheter Type (from Nrsg): Saline Lock Urinary Cath still in place: No Assessment/Plan Assessment/Plan 86 yo M admitted for abd pain found to have gallstone pancreatitis. MRCP without clear evidence of stone, GI deferring to gen surg for procedural intervention #pancreatitis: as above, general surgery already on consult (dr claire) increase pain meds #?pedal edema: none noted on exam, trial of LE elevation #HTN: cont home meds diet: CLD as per GI DVT prophx: SCDs dispo: pending surgical eval Subjective 24 Hr Interval Summary Free Text/Dictation Language line used for today's encounter pt reports abd pain still present and pain control suboptimal also thinks his feet are swollen no chest pain or sob tolerating minimal clears Exam/Review of Systems Vital Signs Vitals Vital Signs Date Time Temp Pulse Resp B/P Pulse Ox O2 Delivery O2 Flow Rate FiO2 03/04/17 07:25 98.9 109 18 141/69 97 03/02/17 20:01 Room Air 03/01/17 05:58 2.0 Intake and Output 03/03/17 03/03/17 03/04/17 15:00 23:00 07:00 Intake Total 1170 ml 950 ml Output Total 350 ml 1020 ml Balance 820 ml -70 ml Exam nad, laying in bed no mrg lungs clear abd soft no le or pedal edema, multiple tophi on toes especially in L foot Results Result Diagram: 03/01/1795703/01/1758 Results 24 hrs Laboratory Tests Test 03/04/17 07:26 Magnesium Level 1.6 L Medications Medications Current Medications Ondansetron HCl (Zofran Inj) 4 mg Q6H PRN IV N/V Last administered on 03/04/17 09:39; Admin Dose 4 MG; Start 03/01/17 at 08:00 Allopurinol (Zyloprim) 100 mg BID PO Last administered on 03/04/17 09:40; Admin Dose 100 MG; Start 03/01/17 at 21:00 Enalapril Maleate (Vasotec) 10 mg DAILY PO Last administered on 03/04/17 09:39 ; Admin Dose 10 MG; Start 03/02/17 at 09:00 Metoprolol Tartrate (Lopressor) 25 mg DAILY PO Last administered on 03/04/17t 09 :39; Admin Dose 25 MG; Start 03/02/17 at 09:00 Pantoprazole (Protonix Iv) 40 mg BID@06,18 IV ; Start 03/04/17 at 18:00 Morphine Sulfate (morphine) 4 mg Q3H PRN IV pain; Start 03/04/17 at 15:00 LORI MIRANDA MD Mar 04, 2017 15:04
[2017-03-04 16:39] LABS: INR 1.13; PROTIME 14.5 Sec (12.2-14.2); PT RATIO 1.1
[2017-03-04 16:40] LABS: PARTIAL THROMBOPLASTIN TIME 34.5 Sec (25.0-35.0)
[2017-03-04] MEDS: PANTOPRAZOLE 40 MG INJ IV SCH (17:20)
[2017-03-04 20:22] VITALS: BP 133/69; RESP 20
--- NOTE | 2017-03-04 22:53 | CONS ---
Date/Time of Note Date/Time of Note DATE: 03/04/17 TIME: 22:53 Assessment/Plan Assessment/Plan Chief Complaint/Hosp Course Anemia, likely secondary to iron deficiency, with a history of gastrointestinal bleed in the past requiring blood transfusion. Hemoglobin stable. cont to monitor closely no indications for transfusion at present Leukocytosis, likely secondary to gallstone pancreatitis THROMBOCYTOSIS- REACTIVE CONT TO MONITOR Gallstone pancreatitis. Abdominal pain, most likely secondary to above.. Chronic kidney disease. History of gout. History of hypertension, blood pressure within acceptable range. 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 Problems: Consultation Date/Type/Reason Admit Date/Time March 01, 2017 at 05:46 Initial Consult Date 03/01/17 [facility] Referring Provider: MAGNOLIA PIERRE MD 24 HR Interval Summary Free Text/Dictation MRCP noted. Improving. Exam/Review of Systems Vital Signs Vitals Vital Signs Date Time Temp Pulse Resp B/P Pulse Ox O2 Delivery O2 Flow Rate FiO2 03/04/17 20:22 97.5 93 20 133/69 94 03/02/17 20:01 Room Air 03/01/17 05:58 2.0 Intake and Output 03/03/17 03/03/17 03/04/17 15:00 23:00 07:00 Intake Total 1170 ml 950 ml Output Total 350 ml 1020 ml Balance 820 ml -70 ml Exam GENERAL: No acute distress, answering questions appropriately. HEENT: No obvious head deformity. Extraocular movements intact. CARDIOVASCULAR: Regular rate and rhythm. No extra sounds. LUNGS: Clear. ABDOMEN: Soft. There is tenderness diffusely, but mainly in the right upper quadrant area and in the epigastric area. No guarding, no rebound tenderness, no rigidity. EXTREMITIES: No edema. Results Result Diagram: 03/01/17 0958 03/01/17 0958 Results 24 hrs Laboratory Tests Test 03/04/17 07:26 03/04/17 16:05 Magnesium Level 1.6 L Prothrombin Time 14.5 H Prothrombin Time Ratio 1.1 INR International Normalized Ratio 1.13 Activated Partial Thromboplast Time 34.5 Medications Medications Current Medications Ondansetron HCl (Zofran Inj) 4 mg Q6H PRN IV N/V Last administered on 03/04/17t 09:39; Admin Dose 4 MG; Start 03/01/17 at 08:00 Allopurinol (Zyloprim) 100 mg BID PO Last administered on 03/04/17 20:25; Admin Dose 100 MG; Start 03/01/17 at 21:00 Enalapril Maleate (Vasotec) 10 mg DAILY PO Last administered on 03/04/17 09:39 ; Admin Dose 10 MG; Start 03/02/17 at 09:00 Metoprolol Tartrate (Lopressor) 25 mg DAILY PO Last administered on 03/04/17 09 :39; Admin Dose 25 MG; Start 03/02/17 at 09:00 Pantoprazole (Protonix Iv) 40 mg BID@06,18 IV Last administered on 03/04/17 17: 20; Admin Dose 40 MG; Start 03/04/17 at 18:00 Morphine Sulfate 4 mg 4 mg Q3H PRN IV pain Last administered on 03/04/17 20:25 ; Admin Dose 4 MG; Start 03/04/17 at 15:00 Potassium Chloride/Dextrose/ Sod Cl (D5-1/2ns + KCl 20 Meq) 1,000 ml @ 80 mls/ hr [id number] IV ; Start 03/04/17 at 22:30 NARAYAN FERNÁNDEZ MD Mar 04, 2017 22:53
[2017-03-04] MEDS: D5W-0.45 NACL + KCL 20 MEQ 1,000 ML IV SCH (23:23)
[2017-03-05] VITALS (26 sets, daily range): BP systolic 93–172; BP diastolic 59–82; PULSE 92–110; RESP 15–27
[2017-03-05 04:49] LABS: ADD SCAN DIFF NO
[2017-03-05 05:01] LABS: BASOPHILS % 0.1 % (0.0-2.0); EOSINOPHILS # 0.1 10^3/ul (0.0-0.5); EOSINOPHILS % 0.8 % (0.0-7.0); HEMATOCRIT 29.7 % (42.0-52.0); HEMOGLOBIN 9.8 g/dl (14.0-18.0); LYMPHOCYTES # 1.8 10^3/ul (0.8-2.9); LYMPHOCYTES % 12.5 % (15.0-51.0); MEAN CORPUSCULAR HEMOGLOBIN 28.9 pg (29.0-33.0); MEAN CORPUSCULAR VOLUME 87.6 fl (82.0-101.0); MEAN PLATELET VOLUME 9.6 fl (7.4-10.4); MONOCYTE # 1.1 10^3/ul (0.3-0.9); MONOCYTES % 7.7 % (0.0-11.0); NEUTROPHIL # 11.4 10^3/ul (1.6-7.5); NEUTROPHILS % 78.3 % (39.0-77.0); PLATELET COUNT 452 10^3/UL (140-415); RED BLOOD COUNT 3.39 10^6/ul (4.70-6.10); RED CELL DISTRIBUTION WIDTH 15.8 % (11.5-14.5); WHITE BLOOD COUNT 14.5 10^3/ul (4.8-10.8)
[2017-03-05 05:27] LABS: ALBUMIN 3.2 g/dl (3.3-4.9); ALBUMIN/GLOBULIN RATIO 1.23; BILIRUBIN,INDIRECT 0.7 mg/dl (0-1.1); BILIRUBIN,TOTAL 0.7 mg/dl (0.2-1.3); CALCIUM 8.4 mg/dl (8.4-10.2); CREATININE 1.34 mg/dl (0.61-1.24); POTASSIUM 4.1 mmol/L (3.5-5.1); TOTAL PROTEIN 5.8 g/dl (6.1-8.1)
[2017-03-05 05:37] LABS: AMYLASE < 30 U/L (11-123)
[2017-03-05] MEDS: PANTOPRAZOLE 40 MG INJ IV SCH ×2 (05:46→20:05)
[2017-03-05] MEDS: morphine 4 MG/ML VIAL IV PRN ×3 (05:46→23:29)
[2017-03-05] MEDS: METOPROLOL 25 MG TAB PO SCH (09:29)
[2017-03-05] MEDS: ALLOPURINOL 100 MG TAB PO SCH ×2 (09:29→20:06)
[2017-03-05] MEDS: ENALAPRIL 10 MG TAB PO SCH (09:29)
[2017-03-05] MEDS: D5W-0.45 NACL + KCL 20 MEQ 1,000 ML IV SCH ×2 (10:28→23:29)
--- NOTE | 2017-03-05 11:10 | PN ---
Date/Time of Note Date/Time of Note DATE: 03/05/17 TIME: 11:06 Assessment/Plan VTE Prophylaxis VTE Prophylaxis Intervention: SCD's Lines/Catheters IV Catheter Type (from Nrsg): Peripheral IV Urinary Cath still in place: No Assessment/Plan Assessment/Plan 86 yo M with pmhx gout, HTN, CKD admitted for abd pain found to have gallstone pancreatitis. MRCP without clear evidence of stone, GI deferring to gen surg for procedural intervention #pancreatitis: as above, general surgery already on consult (dr claire) increase pain meds #?pedal edema: none noted on exam, trial of LE elevation #HTN: cont home meds diet: CLD as per GI DVT prophx: SCDs dispo: pending surgical eval Perioperative risk stratification: Pt does not have any of the following criteria from the revised cardiac risk index: DM2 on insulin, CKD with Cr >2, known h/o IHD (h/o IL or c/o chest pain) , h/o CHF, h/o cerebrovascular disease Pt's ability to climb a flight of stairs without stopping is consistent with a functional capacity >4 mets Therefore as per ACC/AHA guidelines, no additional cardiac testing is indicated prior to this patient's intermediate risk surgery continue home beta bryan Subjective 24 Hr Interval Summary Free Text/Dictation Pt and at bedside this morning. Per discussion with , pt is able to climb a flight of stairs and walk a full block without stopping. Pt does not have any known history of IL/CAD, CHF, or stroke. Exam/Review of Systems Vital Signs Vitals Vital Signs Date Time Temp Pulse Resp B/P Pulse Ox O2 Delivery O2 Flow Rate FiO2 03/05/17 08:37 98.5 112 20 138/73 93 03/02/17 20:01 Room Air Intake and Output 03/04/17 03/04/17 03/05/17 15:00 23:00 07:00 Intake Total 100 ml 960 ml 800 ml Output Total 800 ml Balance 100 ml 960 ml 0 ml Exam nad, laying in bed no mrg lungs clear abd soft no le edema Results Result Diagram: 03/05/17 0440 03/05/17 0440 Results 24 hrs Laboratory Tests Test 03/04/17 16:05 03/05/17 04:40 Prothrombin Time 14.5 H Prothrombin Time Ratio 1.1 INR International Normalized Ratio 1.13 Activated Partial Thromboplast Time 34.5 White Blood Count 14.5 #H Red Blood Count 3.39 L Hemoglobin 9.8 L Hematocrit 29.7 L Mean Corpuscular Volume 87.6 Mean Corpuscular Hemoglobin 28.9 L Mean Corpuscular Hemoglobin Concent 33.0 Red Cell Distribution Width 15.8 H Platelet Count 452 H Mean Platelet Volume 9.6 Neutrophils % 78.3 H Lymphocytes % 12.5 L Monocytes % 7.7 Eosinophils % 0.8 Basophils % 0.1 Nucleated Red Blood Cells % 0.0 Neutrophils # 11.4 H Lymphocytes # 1.8 Monocytes # 1.1 H Eosinophils # 0.1 Basophils # 0.0 Nucleated Red Blood Cells # 0.0 Sodium Level 131 L Potassium Level 4.1 Chloride Level 104 Carbon Dioxide Level 17 L Anion Gap 14 Blood Urea Nitrogen 15 Creatinine 1.34 H Glucose Level 87 Calcium Level 8.4 Total Bilirubin 0.7 Direct Bilirubin 0.00 Indirect Bilirubin 0.7 Aspartate Amino Transf (AST/SGOT) 19 Alanine Aminotransferase (ALT/SGPT) 26 Alkaline Phosphatase 84 Total Protein 5.8 L Albumin 3.2 L Globulin 2.60 Albumin/Globulin Ratio 1.23 Amylase Level < 30 Lipase 26 Medications Medications Current Medications Ondansetron HCl (Zofran Inj) 4 mg Q6H PRN IV N/V Last administered on 03/04/17 09:39; Admin Dose 4 MG; Start 03/01/17 at 08:00 Allopurinol (Zyloprim) 100 mg BID PO Last administered on 03/05/17 09:29; Admin Dose 100 MG; Start 03/01/17 at 21:00 Enalapril Maleate (Vasotec) 10 mg DAILY PO Last administered on 03/05/17 09:29 ; Admin Dose 10 MG; Start 03/02/17 at 09:00 Metoprolol Tartrate (Lopressor) 25 mg DAILY PO Last administered on 03/05/17 09 :29; Admin Dose 25 MG; Start 03/02/17 at 09:00 Pantoprazole (Protonix Iv) 40 mg BID@ IV Last administered on 03/05/17 05: 46; Admin Dose 40 MG; Start 03/04/17 at 18:00 Morphine Sulfate 4 mg 4 mg Q3H PRN IV pain Last administered on 03/05/17 05:46 ; Admin Dose 4 MG; Start 03/04/17 at 15:00 Potassium Chloride/Dextrose/ Sod Cl 1,000 ml @ 80 mls/hr [id number] IV Last administered on 03/04/17 23:23; Admin Dose 80 MLS/HR; Start 03/04/17 at 22:30 Piperacillin Sod/ Tazobactam Sod (Zosyn 3.375gm/ 100 ml (Pmx)) 100 ml @ 200 mls /hr Q8 IVPB ; Start 03/05/17 at 11:30 Procedures Procedures EKG reviewed, sinus tach, no gross Q wave abnormalities LORI MIRANDA MD Mar 05, 2017 11:10 EKG reviewed, sinus tach, no gross Q wave abnormalities LORI MIRANDA MD Mar 05, 2017 11:10
[2017-03-05] MEDS: PIPER-TAZO 3.375 GM IV (PMX) 100 ML IVPB SCH ×2 (11:45→21:59)
--- NOTE | 2017-03-05 12:56 | PN ---
Date/Time of Note Date/Time of Note DATE: 03/04/17 TIME: 12:55 Assessment/Plan Lines/Catheters IV Catheter Type (from [facility]): Peripheral IV Holland in Place (from [facility]): No Assessment/Plan Chief Complaint/Hosp Course 1. Abdominal pain secondary to gallstone pancreatitis. MRCP noted. -Trend labs -Judicious fluid management -GI follow-up -OR tomorrow 2. BMI 30 -Nutrition optimization encouraged -Exercise as possible encouraged 3. Anemia, likely secondary to iron deficiency. -Monitor 4. Leukocytosis, likely secondary to above. Resolved. 5. Acute on Chronic kidney disease. -Judicious fluid management -Avoid nephrotoxic agents 6. Gout. -Medical management 7. Hypertension -Diet and medication control -Weight optimization encouraged Thank you Late entry 03/04 Problems: Subjective 24 Hr Interval Summary Min pain. No fevers or chills. No nausea vomiting. No chest pain or shortness of breath. No cough. No seizure. No blood per mouth or rectum. No dysuria. MRCP noted. Exam/Review of Systems Vital Signs Vitals Vital Signs Date Time Temp Pulse Resp B/P Pulse Ox O2 Delivery O2 Flow Rate FiO2 03/05/17 11:50 98.0 92 20 154/70 94 03/02/17 20:01 Room Air Intake and Output 03/04/17 03/04/17 03/05/17 15:00 23:00 07:00 Intake Total 100 ml 960 ml 800 ml Output Total 800 ml Balance 100 ml 960 ml 0 ml Exam Free Text/Dictation Constitutional: alert, obese, No distress Psych: nl mood/affect, No anxiety Head: atraumatic, normocephalic Eyes: EOMI, PERRL, nl conjunctiva, No icteric ENMT: mucosa pink and moist, nl external ears & nose Neck: non-tender, No jvd Respiratory: normal air movement, No congested cough, No labored breathing Cardiovascular: edema (Minimal), regular rate and rhythm Gastrointestinal: soft, tender (Epigastric minimally without Rock's), No distended, No rebound or guarding Musculoskeletal: nl extremities to inspection, No joint tenderness Extremities: normal pulses, No calf tenderness, No cyanosis Neurological: nl mental status, nl speech, No nl strength Skin: No diaphoresis, No rash or lesions Lymph: nl lymph nodes Results Result Diagram: 03/05/17 0440 03/05/17 0440 KAREN LASSITER MD Mar 05, 2017 12:56
--- NOTE | 2017-03-05 12:57 | PN ---
Date/Time of Note Date/Time of Note DATE: 03/05/17 TIME: 12:56 Assessment/Plan Lines/Catheters IV Catheter Type (from [facility]): Peripheral IV Holland in Place (from [facility]): No Assessment/Plan Chief Complaint/Hosp Course 1. Abdominal pain secondary to gallstone pancreatitis. MRCP noted. -Trend labs -Judicious fluid management -GI follow-up -OR today 2. BMI 30 -Nutrition optimization encouraged -Exercise as possible encouraged 3. Anemia, likely secondary to iron deficiency. -Monitor 4. Leukocytosis, likely secondary to above. Resolved. 5. Acute on Chronic kidney disease. -Judicious fluid management -Avoid nephrotoxic agents 6. Gout. -Medical management 7. Hypertension -Diet and medication control -Weight optimization encouraged Thank you Problems: Subjective 24 Hr Interval Summary Min pain. No fevers or chills. No nausea vomiting. No chest pain or shortness of breath. No cough. No seizure. No blood per mouth or rectum. No dysuria. MRCP noted. Leukocytosis. Exam/Review of Systems Vital Signs Vitals Vital Signs Date Time Temp Pulse Resp B/P Pulse Ox O2 Delivery O2 Flow Rate FiO2 03/05/17 11:50 98.0 92 20 154/70 94 03/02/17 20:01 Room Air Intake and Output 03/04/17 03/04/17 03/05/17 15:00 23:00 07:00 Intake Total 100 ml 960 ml 800 ml Output Total 800 ml Balance 100 ml 960 ml 0 ml Exam Free Text/Dictation Constitutional: alert, obese, No distress Psych: nl mood/affect, No anxiety Head: atraumatic, normocephalic Eyes: EOMI, PERRL, nl conjunctiva, No icteric ENMT: mucosa pink and moist, nl external ears & nose Neck: non-tender, No jvd Respiratory: normal air movement, No congested cough, No labored breathing Cardiovascular: edema (Minimal), regular rate and rhythm Gastrointestinal: soft, tender (Epigastric minimally without Rock's), No distended, No rebound or guarding Musculoskeletal: nl extremities to inspection, No joint tenderness Extremities: normal pulses, No calf tenderness, No cyanosis Neurological: nl mental status, nl speech, No nl strength Skin: No diaphoresis, No rash or lesions Lymph: nl lymph nodes Results Result Diagram: 03/05/17 0440 03/05/17 0440 KAREN LASSITER MD Mar 05, 2017 12:57
[2017-03-05] MEDS ORDERED: LIDOCAINE 1% (MPF) 30 ML INJ ONE (14:15)
[2017-03-05] MEDS ORDERED: BUPIVACAINE 0.25%/EPI (SDV) 30 ML INJ ONE (14:15)
[2017-03-05] MEDS ORDERED: METOCLOPRAMIDE 10 MG INJ IV PRN (15:00)
[2017-03-05] MEDS ORDERED: MEPERIDINE 25 MG INJ IV PRN (15:00)
[2017-03-05] MEDS ORDERED: DIPHENHYDRAMINE 50 MG INJ IV PRN (15:00)
[2017-03-05] MEDS ORDERED: HYDROmorphONE (0.2 MG/ML) 10ML SYG IV PRN ×3 (15:00)
[2017-03-05] MEDS ORDERED: ONDANSETRON 4 MG INJ IV PRN (15:00)
[2017-03-05] MEDS ORDERED: ROCURONIUM 50 MG INJ ONE (15:06)
[2017-03-05] MEDS ORDERED: LIDOCAINE 2% (SDV) 5 ML INJ ONE (15:06)
[2017-03-05] MEDS ORDERED: GLYCOPYRROLATE 0.4 MG INJ ONE (15:06)
[2017-03-05] MEDS ORDERED: NEOSTIGMINE 3 MG/3 ML SYRINGE ONE (15:06)
[2017-03-05] MEDS ORDERED: PROPOFOL 20 ML ONE (15:06)
[2017-03-05] MEDS ORDERED: EPHEDrine SULFATE 50 MG/5 ML SYG ONE (15:06)
[2017-03-05] MEDS ORDERED: PHENYLephrine (100 MCG/ML) 5ML SYG ONE (15:07)
[2017-03-05] MEDS ORDERED: ROPIVACAINE 0.5 % 30 ML VIAL ONE (15:07)
[2017-03-05] MEDS ORDERED: FENTAnyl 50 MCG/ML VIAL ONE (15:43)
[2017-03-05] MEDS ORDERED: FUROSEMIDE 20 MG INJ ONE (15:50)
[2017-03-05] MEDS ORDERED: METOPROLOL 5 MG INJ ONE (15:53)
[2017-03-05 16:43] LABS: AADO2 Arterial 614.5 mmHg (7.0-24.0); Allen Test ACCEPTAB; Arterial Base Excess -7.8 mmol/L (-3.0-3); Arterial COHb 0.3 % (0.0-3.0); Arterial Fraction of Oxyhgb 91.4 % (93.0-99.0); Arterial HCO3 18.1 mmol/L (22.0-26.0); Arterial MetHb 0.4 % (0.0-1.5); Arterial Total Hemglobin 11.2 g/dl (12.0-18.0); Blood Gas IEPAP 15/5; Blood Gas PS 10; MODE MASK - BIPAP
[2017-03-05] MEDS ORDERED: NA BICARBONATE 8.4% 50 ML SYG IV STA (16:46)
[2017-03-05] MEDS ORDERED: SODIUM BICARBONATE ONE (16:50)
[2017-03-05] MEDS ORDERED: ALBUTEROL 0.5% (NEB) 2.5 MG/0.5 ML AMP ONE (17:38)
--- NOTE | 2017-03-05 17:47 | RADRPT ---
PROCEDURE: XR Chest. CLINICAL INDICATION: Dyspnea and the patient on CPAP and moving TECHNIQUE: AP Portable chest. COMPARISON: 12/23/2016 chest x-ray FINDINGS: The soft tissues and bones are remarkable for thoracic spondylosis and mild bilateral acromioclavicu lar osteoarthropathy. Mild cardiomegaly and interstitial edema is present. Mild vascular calcifica tions are present of the thoracic aorta. Mild bibasilar discoid atelectasis or infiltrates are pres ent with small bilateral pleural effusions. No pneumothorax is present. A 5 mm calcified right upp er lobe granuloma is present. IMPRESSION: 1. Mild cardiogenic pulmonary venous hypertension 2. Bibasilar discoid atelectasis or early infiltrates and small bilateral pleural effusions. 3. Mild cardiomegaly and atherosclerotic vascular disease. 4. Right upper lobe calcified granuloma. RPTAT: HDC .Patricia Mackay MD, Date Time Electronically viewed and signed by .Patricia Mackay MD, on 03/05/2017 17:46 .C/
[2017-03-05] MEDS ORDERED: ALBUTEROL 0.083% (NEB) 2.5 MG/3 ML AMP HHN ONE (18:00)
[2017-03-05] MEDS ORDERED: IPRATROPIUM (NEB) 0.5 MG/2.5 ML AMP HHN ONE (18:00)
--- NOTE | 2017-03-05 18:07 | OPR ---
Date/Time of Note Date/Time of Note DATE: 03/05/17 TIME: 18:07 Operative Report Procedure Date: Mar 05, 2017 Procedure Description Preoperative Diagnosis: Gallstone pancreatitis Cholecystitis Symptomatic cholelithiasis Transaminitis BMI 30 Postoperative Diagnosis: Gallstone pancreatitis Cholecystitis Symptomatic cholelithiasis Transaminitis BMI 30 Ventral hernia Operation(s) Performed: 1. 3 port laparoscopic cholecystectomy 2. Laparoscopic liver wedge resection biopsy 3. Ventral hernia repair, primary 4. Local anesthetic [place], [id number] Surgeon: KAREN LASSITER MD Anesthesia: general, local, & regional Anesthesiologist: GAMAL LEONG MD Estimated Blood Loss: 30 ml's Specimens: Liver Gallbladder Tubes/Drains: 19 Faroese Barbie Complications: None Pt Condition Post Procedure: stable Disposition: PACU Indications: 86-year-old male with gallstone pancreatitis, cholecystitis, and abdominal pain here for cholecystectomy. Risks include but are not limited to bleeding, infection, abscess, seroma, damage to intestines, damage to the liver, damage to biliary tree, hernia formation, chronic pain, biloma, need for re-operations or further surgeries, MT , stroke, PE, DVT, pneumonia, organ failures, or even . Procedure Description: Patient was brought and placed supine on the operating table SCDs were placed, preoperative antibiotics were administered, all pressure points were well-padded , and after induction of anesthesia patient was prepped and draped in usual sterile fashion and timeout was performed. Incision was made in the supraumbilical region, and through the ventral hernia abdomen was entered and insufflated to 15mmHg. Laparoscopy was performed with a 5 mm 30 scope. No injuries were identified. The liver looks somewhat abnormal color. Gallbladder is infected and distended. 12 mm port is placed in subxiphoid under direct visualization followed by another 5 mm port in the right upper quadrant. All port sites were injected with quarter percent Marcaine with epi and 1% lidocaine prior to any incisions. Bilateral transversus abdominis plane block was performed under laparoscopic visualization to aid with pain control intra-and postoperatively. Patient was placed in reverse Trendelenburg and right side up on gallbladder was retracted superolaterally. The gallbladder was large and distended. The gallbladder was drained there was some leakage of bile which was immediately washed out. Using electrocautery and blunt dissection I was able to identify the cystic artery and cystic duct. The duct tapered into the gallbladder. Full critical angle view was identified. Both structures were clipped twice proximally and once distally and transected. The gallbladder was taken off the liver with electrocautery. Hemostasis was obtained. Gallbladder was placed in an Endo Catch bag and removed through the subxiphoid port site. There was complete hemostasis. Due to the abnormality of the liver decision was made to perform liver wedge resection which was done with electrocautery and scissor with complete hemostasis right after. The specimen was sent to pathology for further evaluation. 19F barbie drain was placed through lateral incision to drain the liver and gb sites. The ventral hernia was closed with Endo Close and 0 Vicryl in a [id number] manner 2. Ports and CO2 were removed under direct visualization. There was complete hemostasis. Wounds were thoroughly irrigated skin was closed with 4-0 Monocryl in subcuticular fashion. Dermabond was applied. Patient was extubated and transferred to recovery room in stable condition and all counts were correct and the end of the operation 2. KAREN LASSITER MD Mar 05, 2017 18:07
--- NOTE | 2017-03-05 23:04 | CONS ---
Date/Time of Note Date/Time of Note DATE: 03/05/17 TIME: 23:02 Assessment/Plan Assessment/Plan Chief Complaint/Hosp Course Anemia, likely secondary to iron deficiency, with a history of gastrointestinal bleed in the past requiring blood transfusion. Hemoglobin stable. cont to monitor closely no indications for transfusion at present Leukocytosis, likely secondary to gallstone pancreatitis THROMBOCYTOSIS- REACTIVE CONT TO MONITOR Gallstone pancreatitis. - post op Abdominal pain, most likely secondary to above.. Chronic kidney disease. History of gout. History of hypertension, blood pressure within acceptable range. 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 Problems: Consultation Date/Type/Reason Admit Date/Time March 01, 2017 at 05:46 Initial Consult Date 03/01/17 Type of Consultation: HEMEON Referring Provider: MAGNOLIA PIERRE MD 24 HR Interval Summary Free Text/Dictation all noted post 3 port laparoscopic cholecystectomy and Laparoscopic liver wedge resection biopsy Exam/Review of Systems Vital Signs Vitals Vital Signs Date Time Temp Pulse Resp B/P Pulse Ox O2 Delivery O2 Flow Rate FiO2 03/05/17 21:30 Nasal Cannula 2.0 03/05/17 20:04 98.0 92 18 130/65 98 03/05/17 17:07 100 Intake and Output 03/04/17 03/04/17 03/05/17 15:00 23:00 07:00 Intake Total 100 ml 960 ml 800 ml Output Total 800 ml Balance 100 ml 960 ml 0 ml Exam Constitutional: alert, obese, No distress Psych: nl mood/affect, No anxiety Head: atraumatic, normocephalic Eyes: EOMI, PERRL, nl conjunctiva, No icteric ENMT: mucosa pink and moist, nl external ears & nose Neck: non-tender, No jvd Respiratory: normal air movement, No congested cough, No labored breathing Cardiovascular: edema (Minimal), regular rate and rhythm Gastrointestinal: soft, tender post op No distended, No rebound or guarding Musculoskeletal: nl extremities to inspection, No joint tenderness Extremities: normal pulses, No calf tenderness, No cyanosis Neurological: nl mental status, nl speech, No nl strength Skin: No diaphoresis, No rash or lesions Lymph: nl lymph nodes Results Result Diagram: 03/05/17 0440 03/05/17 0440 Results 24 hrs Laboratory Tests Test 03/05/17 04:40 03/05/17 16:40 White Blood Count 14.5 #H Red Blood Count 3.39 L Hemoglobin 9.8 L Hematocrit 29.7 L Mean Corpuscular Volume 87.6 Mean Corpuscular Hemoglobin 28.9 L Mean Corpuscular Hemoglobin Concent 33.0 Red Cell Distribution Width 15.8 H Platelet Count 452 H Mean Platelet Volume 9.6 Neutrophils % 78.3 H Lymphocytes % 12.5 L Monocytes % 7.7 Eosinophils % 0.8 Basophils % 0.1 Nucleated Red Blood Cells % 0.0 Neutrophils # 11.4 H Lymphocytes # 1.8 Monocytes # 1.1 H Eosinophils # 0.1 Basophils # 0.0 Nucleated Red Blood Cells # 0.0 Sodium Level 131 L Potassium Level 4.1 Chloride Level 104 Carbon Dioxide Level 17 L Anion Gap 14 Blood Urea Nitrogen 15 Creatinine 1.34 H Glucose Level 87 Calcium Level 8.4 Total Bilirubin 0.7 Direct Bilirubin 0.00 Indirect Bilirubin 0.7 Aspartate Amino Transf (AST/SGOT) 19 Alanine Aminotransferase (ALT/SGPT) 26 Alkaline Phosphatase 84 Total Protein 5.8 L Albumin 3.2 L Globulin 2.60 Albumin/Globulin Ratio 1.23 Amylase Level < 30 Lipase 26 Blood Gas Specimen Source Blood arterial Arterial Blood Date Drawn 03/05/2017 4:30:46 PM Arterial Blood pH (Temp corrected) 7.310 L Arterial Blood pCO2 (Temp correct) 36.3 Arterial Blood pO2 (Temp corrected) 64.8 L Arterial Blood HCO3 18.1 L Arterial Blood Base Excess -7.8 L Arterial Blood Oxygen Saturation 92.0 L Mike Test ACCEPTAB Arterial Blood Gas Puncture Site Left Radial Arterial Blood Carboxyhemoglobin 0.3 Arterial Blood Methemoglobin 0.4 Blood Gas A-a O2 Differential 614.5 H Oxyhemoglobin Percent 91.4 L Total Hemoglobin 11.2 L Blood Gas Temperature 36.0 Blood Gas Respiration Rate 16.0 Blood Gas Actual Respiration Rate 21 Blood Gas Modality MASK - BIPAP FiO2 100.0 Blood Gas Pressure Support 10 Blood Gas IPAP/EPAP Ratio 15/5 Blood Gas Critical Value Read Back Alejandro WOLFF RN Blood Gas Notified Whom Lalo Blood Gas Notified Time 03/05/2017 4:41:40 PM Medications Medications Current Medications Ondansetron HCl (Zofran Inj) 4 mg Q6H PRN IV N/V Last administered on 03/04/17 09:39; Admin Dose 4 MG; Start 03/01/17 at 08:00 Allopurinol (Zyloprim) 100 mg BID PO Last administered on 03/05/17 09:29; Admin Dose 100 MG; Start 03/01/17 at 21:00 Enalapril Maleate (Vasotec) 10 mg DAILY PO Last administered on 03/05/17 09:29 ; Admin Dose 10 MG; Start 03/02/17 at 09:00 Metoprolol Tartrate (Lopressor) 25 mg DAILY PO Last administered on 03/05/17 09 :29; Admin Dose 25 MG; Start 03/02/17 at 09:00 Pantoprazole (Protonix Iv) 40 mg BID@06,18 IV Last administered on 03/05/17 20: 05; Admin Dose 40 MG; Start 03/04/17 at 18:00 Morphine Sulfate 4 mg 4 mg Q3H PRN IV pain Last administered on 03/05/17 20:30 ; Admin Dose 4 MG; Start 03/04/17 at 15:00 Potassium Chloride/Dextrose/ Sod Cl 1,000 ml @ 80 mls/hr [id number] IV Last administered on 03/04/17 23:23; Admin Dose 80 MLS/HR; Start 03/04/17 at 22:30 Piperacillin Sod/ Tazobactam Sod (Zosyn 3.375gm/ 100 ml (Pmx)) 100 ml @ 200 mls /hr Q8 IVPB Last administered on 03/05/17 21:59; Admin Dose 200 MLS/HR; Start 03/05/17 at 11:30 NARAYAN FERNÁNDEZ MD Mar 05, 2017 23:04
--- NOTE | 2017-03-06 | RADRPT ---
Vent Rate: 114 bpm RR Interval: 0 msec VA Interval: 160 msec QRS Duration: 88 msec QT Interval: 328 msec QTC Interval: 452 msec P-R-T [place]: 57 - -1 - 77 degrees Sinus tachycardia Otherwise normal ECG Electronically Signed By: Wilner Marley [id number]
[2017-03-06 00:37] VITALS: BP 115/60; RESP 19
[2017-03-06] MEDS: morphine 4 MG/ML VIAL IV PRN ×5 (02:25→17:28)
[2017-03-06 05:15] LABS: BASOPHILS % 0.1 % (0.0-2.0); EOSINOPHILS % 0.2 % (0.0-7.0); HEMATOCRIT 27.8 % (42.0-52.0); HEMOGLOBIN 9.2 g/dl (14.0-18.0); LYMPHOCYTES # 1.3 10^3/ul (0.8-2.9); LYMPHOCYTES % 10.4 % (15.0-51.0); MEAN CORPUSCULAR HGB CONC 33.1 g/dl (32.0-37.0); MEAN CORPUSCULAR VOLUME 87.7 fl (82.0-101.0); MONOCYTE # 1.1 10^3/ul (0.3-0.9); MONOCYTES % 8.3 % (0.0-11.0); NEUTROPHIL # 10.4 10^3/ul (1.6-7.5); NEUTROPHILS % 80.2 % (39.0-77.0); PLATELET COUNT 456 10^3/UL (140-415); RED BLOOD COUNT 3.17 10^6/ul (4.70-6.10); RED CELL DISTRIBUTION WIDTH 15.8 % (11.5-14.5); WHITE BLOOD COUNT 12.9 10^3/ul (4.8-10.8)
[2017-03-06 05:16] LABS: ADD SCAN DIFF NO
[2017-03-06] MEDS: PANTOPRAZOLE 40 MG INJ IV SCH ×2 (05:31→17:15)
[2017-03-06] MEDS: PIPER-TAZO 3.375 GM IV (PMX) 100 ML IVPB SCH ×3 (05:32→21:58)
[2017-03-06 05:40] LABS: ALBUMIN 2.9 g/dl (3.3-4.9); ALBUMIN/GLOBULIN RATIO 1.16; BILIRUBIN,INDIRECT 0.6 mg/dl (0-1.1); BILIRUBIN,TOTAL 0.6 mg/dl (0.2-1.3); CALCIUM 8.2 mg/dl (8.4-10.2); CREATININE 1.61 mg/dl (0.61-1.24); POTASSIUM 4.4 mmol/L (3.5-5.1); TOTAL PROTEIN 5.4 g/dl (6.1-8.1)
[2017-03-06 08:15] VITALS: BP 131/70; RESP 22
[2017-03-06] MEDS: METOPROLOL 25 MG TAB PO SCH (08:27)
[2017-03-06] MEDS: ALLOPURINOL 100 MG TAB PO SCH ×2 (08:28→21:58)
[2017-03-06] MEDS: ENALAPRIL 10 MG TAB PO SCH (08:28)
--- NOTE | 2017-03-06 09:53 | PN ---
Date/Time of Note Date/Time of Note DATE: 03/06/17 TIME: 09:52 Assessment/Plan VTE Prophylaxis VTE Prophylaxis Intervention: SCD's Lines/Catheters IV Catheter Type (from Nrsg): Peripheral IV Urinary Cath still in place: Yes Reason Cath still needed: other (indicate) (need for strict Is/Os post op. will dc when ok by gen surg) Assessment/Plan Assessment/Plan 86 yo M with pmhx gout, HTN, CKD admitted for abd pain found to have gallstone pancreatitis. MRCP without clear evidence of stone, GI deferring to gen surg for procedural intervention #gallstone pancreatitis: sp lap ashleigh 6.2 abx, pain meds, IVFs as per gen surg #HTN: cont home meds diet: CLD as per GI DVT prophx: SCDs dispo: as per gen surg Subjective 24 Hr Interval Summary Free Text/Dictation Pt with some abd pain after his lap ashleigh yesterday Exam/Review of Systems Vital Signs Vitals Vital Signs Date Time Temp Pulse Resp B/P Pulse Ox O2 Delivery O2 Flow Rate FiO2 03/06/17 08:15 97.8 107 22 131/70 95 03/06/17 01:24 2.0 03/05/17 21:30 Nasal Cannula 03/05/17 17:07 100 Intake and Output 03/05/17 03/05/17 03/06/17 15:00 23:00 07:00 Intake Total 1300 ml 1280 ml Output Total 425 ml 1600 ml Balance 875 ml -320 ml Exam nad, laying in bed no mrg lungs clear abd with SHANTE drain out of RLQ with serosang drainage no rashes Results Result Diagram: 03/06/17 0426 03/06/17 0426 Results 24 hrs Laboratory Tests Test 03/05/17 16:40 03/06/17 04:26 Blood Gas Specimen Source Blood arterial Arterial Blood Date Drawn 03/05/2017 4:30:46 PM Arterial Blood pH (Temp corrected) 7.310 L Arterial Blood pCO2 (Temp correct) 36.3 Arterial Blood pO2 (Temp corrected) 64.8 L Arterial Blood HCO3 18.1 L Arterial Blood Base Excess -7.8 L Arterial Blood Oxygen Saturation 92.0 L Mike Test ACCEPTAB Arterial Blood Gas Puncture Site Left Radial Arterial Blood Carboxyhemoglobin 0.3 Arterial Blood Methemoglobin 0.4 Blood Gas A-a O2 Differential 614.5 H Oxyhemoglobin Percent 91.4 L Total Hemoglobin 11.2 L Blood Gas Temperature 36.0 Blood Gas Respiration Rate 16.0 Blood Gas Actual Respiration Rate 21 Blood Gas Modality MASK - BIPAP FiO2 100.0 Blood Gas Pressure Support 10 Blood Gas IPAP/EPAP Ratio 15/5 Blood Gas Critical Value Read Back Alejandro WOLFF RN Blood Gas Notified Whom Lalo Blood Gas Notified Time 03/05/2017 4:41:40 PM White Blood Count 12.9 H Red Blood Count 3.17 L Hemoglobin 9.2 L Hematocrit 27.8 L Mean Corpuscular Volume 87.7 Mean Corpuscular Hemoglobin 29.0 Mean Corpuscular Hemoglobin Concent 33.1 Red Cell Distribution Width 15.8 H Platelet Count 456 H Mean Platelet Volume 10.0 Neutrophils % 80.2 H Lymphocytes % 10.4 L Monocytes % 8.3 Eosinophils % 0.2 Basophils % 0.1 Nucleated Red Blood Cells % 0.0 Neutrophils # 10.4 H Lymphocytes # 1.3 Monocytes # 1.1 H Eosinophils # 0.0 Basophils # 0.0 Nucleated Red Blood Cells # 0.0 Sodium Level 132 L Potassium Level 4.4 Chloride Level 103 Carbon Dioxide Level 22 Anion Gap 11 Blood Urea Nitrogen 16 Creatinine 1.61 H Glucose Level 120 Calcium Level 8.2 L Total Bilirubin 0.6 Direct Bilirubin 0.00 Indirect Bilirubin 0.6 Aspartate Amino Transf (AST/SGOT) 47 #H Alanine Aminotransferase (ALT/SGPT) 39 Alkaline Phosphatase 75 Total Protein 5.4 L Albumin 2.9 L Globulin 2.50 Albumin/Globulin Ratio 1.16 Medications Medications Current Medications Ondansetron HCl (Zofran Inj) 4 mg Q6H PRN IV N/V Last administered on 03/04/17 09:39; Admin Dose 4 MG; Start 03/01/17 at 08:00 Allopurinol (Zyloprim) 100 mg BID PO Last administered on 03/06/17 08:28; Admin Dose 100 MG; Start 03/01/17 at 21:00 Enalapril Maleate (Vasotec) 10 mg DAILY PO Last administered on 03/06/17 08:28 ; Admin Dose 10 MG; Start 03/02/17 at 09:00 Metoprolol Tartrate (Lopressor) 25 mg DAILY PO Last administered on 03/06/17 08 :27; Admin Dose 25 MG; Start 03/02/17 at 09:00 Pantoprazole (Protonix Iv) 40 mg BID@06,18 IV Last administered on 03/06/17 05: 31; Admin Dose 40 MG; Start 03/04/17 at 18:00 Morphine Sulfate 4 mg 4 mg Q3H PRN IV pain Last administered on 03/06/17 05:32 ; Admin Dose 4 MG; Start 03/04/17 at 15:00 Potassium Chloride/Dextrose/ Sod Cl 1,000 ml @ 80 mls/hr [id number] IV Last administered on 03/05/17 23:29; Admin Dose 80 MLS/HR; Start 03/04/17 at 22:30 Piperacillin Sod/ Tazobactam Sod (Zosyn 3.375gm/ 100 ml (Pmx)) 100 ml @ 200 mls /hr Q8 IVPB Last administered on 03/06/17 05:32; Admin Dose 200 MLS/HR; Start 03/05/17 at 11:30 LORI MIRANDA MD Mar 06, 2017 09:52
--- NOTE | 2017-03-06 10:12 | CONS ---
Date/Time of Note Date/Time of Note DATE: 03/06/17 TIME: 10:12 Assessment/Plan Assessment/Plan Chief Complaint/Hosp Course Anemia, likely secondary to iron deficiency, with a history of gastrointestinal bleed in the past requiring blood transfusion. Hemoglobin stable. cont to monitor closely no indications for transfusion at present Leukocytosis, likely secondary to gallstone pancreatitis THROMBOCYTOSIS- REACTIVE CONT TO MONITOR Gallstone pancreatitis. - post op Abdominal pain, most likely secondary to above.. Chronic kidney disease. History of gout. History of hypertension, blood pressure within acceptable range. 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 Problems: Consultation Date/Type/Reason Admit Date/Time March 01, 2017 at 05:46 Initial Consult Date 03/01/17 Type of Consultation: HEMEON Referring Provider: MAGNOLIA PIERRE MD 24 HR Interval Summary Free Text/Dictation Pt with some abd pain after his lap ashleigh yesterday Exam/Review of Systems Vital Signs Vitals Vital Signs Date Time Temp Pulse Resp B/P Pulse Ox O2 Delivery O2 Flow Rate FiO2 03/06/17 08:15 97.8 107 22 131/70 95 03/06/17 01:24 2.0 03/05/17 21:30 Nasal Cannula 03/05/17 17:07 100 Intake and Output 03/05/17 03/05/17 03/06/17 15:00 23:00 07:00 Intake Total 1300 ml 1280 ml Output Total 425 ml 1600 ml Balance 875 ml -320 ml Exam Exam nad, laying in bed no mrg lungs clear abd with SHANTE drain out of RLQ with serosang drainage no rashes Results Result Diagram: 03/06/17 0426 03/06/17 0426 Results 24 hrs Laboratory Tests Test 03/05/17 16:40 03/06/17 04:26 Blood Gas Specimen Source Blood arterial Arterial Blood Date Drawn 03/05/2017 4:30:46 PM Arterial Blood pH (Temp corrected) 7.310 L Arterial Blood pCO2 (Temp correct) 36.3 Arterial Blood pO2 (Temp corrected) 64.8 L Arterial Blood HCO3 18.1 L Arterial Blood Base Excess -7.8 L Arterial Blood Oxygen Saturation 92.0 L Mike Test ACCEPTAB Arterial Blood Gas Puncture Site Left Radial Arterial Blood Carboxyhemoglobin 0.3 Arterial Blood Methemoglobin 0.4 Blood Gas A-a O2 Differential 614.5 H Oxyhemoglobin Percent 91.4 L Total Hemoglobin 11.2 L Blood Gas Temperature 36.0 Blood Gas Respiration Rate 16.0 Blood Gas Actual Respiration Rate 21 Blood Gas Modality MASK - BIPAP FiO2 100.0 Blood Gas Pressure Support 10 Blood Gas IPAP/EPAP Ratio 15/5 Blood Gas Critical Value Read Back Alejandro WOLFF RN Blood Gas Notified Whom Lalo Blood Gas Notified Time 03/05/2017 4:41:40 PM White Blood Count 12.9 H Red Blood Count 3.17 L Hemoglobin 9.2 L Hematocrit 27.8 L Mean Corpuscular Volume 87.7 Mean Corpuscular Hemoglobin 29.0 Mean Corpuscular Hemoglobin Concent 33.1 Red Cell Distribution Width 15.8 H Platelet Count 456 H Mean Platelet Volume 10.0 Neutrophils % 80.2 H Lymphocytes % 10.4 L Monocytes % 8.3 Eosinophils % 0.2 Basophils % 0.1 Nucleated Red Blood Cells % 0.0 Neutrophils # 10.4 H Lymphocytes # 1.3 Monocytes # 1.1 H Eosinophils # 0.0 Basophils # 0.0 Nucleated Red Blood Cells # 0.0 Sodium Level 132 L Potassium Level 4.4 Chloride Level 103 Carbon Dioxide Level 22 Anion Gap 11 Blood Urea Nitrogen 16 Creatinine 1.61 H Glucose Level 120 Calcium Level 8.2 L Total Bilirubin 0.6 Direct Bilirubin 0.00 Indirect Bilirubin 0.6 Aspartate Amino Transf (AST/SGOT) 47 #H Alanine Aminotransferase (ALT/SGPT) 39 Alkaline Phosphatase 75 Total Protein 5.4 L Albumin 2.9 L Globulin 2.50 Albumin/Globulin Ratio 1.16 Medications Medications Current Medications Ondansetron HCl (Zofran Inj) 4 mg Q6H PRN IV N/V Last administered on 03/04/17 09:39; Admin Dose 4 MG; Start 03/01/17 at 08:00 Allopurinol (Zyloprim) 100 mg BID PO Last administered on 03/06/17 08:28; Admin Dose 100 MG; Start 03/01/17 at 21:00 Enalapril Maleate (Vasotec) 10 mg DAILY PO Last administered on 03/06/17 08:28 ; Admin Dose 10 MG; Start 03/02/17 at 09:00 Metoprolol Tartrate (Lopressor) 25 mg DAILY PO Last administered on 03/06/17 08 :27; Admin Dose 25 MG; Start 03/02/17 at 09:00 Pantoprazole (Protonix Iv) 40 mg BID@06,18 IV Last administered on 03/06/17 05: 31; Admin Dose 40 MG; Start 03/04/17 at 18:00 Morphine Sulfate 4 mg 4 mg Q3H PRN IV pain Last administered on 03/06/17 05:32 ; Admin Dose 4 MG; Start 03/04/17 at 15:00 Potassium Chloride/Dextrose/ Sod Cl 1,000 ml @ 80 mls/hr [id number] IV Last administered on 03/05/17 23:29; Admin Dose 80 MLS/HR; Start 03/04/17 at 22:30 Piperacillin Sod/ Tazobactam Sod (Zosyn 3.375gm/ 100 ml (Pmx)) 100 ml @ 200 mls /hr Q8 IVPB Last administered on 03/06/17 05:32; Admin Dose 200 MLS/HR; Start 03/05/17 at 11:30 NARAYAN FERNÁNDEZ MD Mar 06, 2017 10:12
[2017-03-06] MEDS: D5W-0.45 NACL + KCL 20 MEQ 1,000 ML IV SCH ×2 (12:00→14:35)
--- NOTE | 2017-03-06 14:24 | PN ---
Date/Time of Note Date/Time of Note DATE: 03/06/17 TIME: 14:20 Assessment/Plan VTE Prophylaxis VTE Prophylaxis Intervention: SCD's Lines/Catheters IV Catheter Type (from Nrs): Peripheral IV Urinary Cath still in place: Yes Reason Cath still needed: other (indicate) (PCP) Assessment/Plan Chief Complaint/Hosp Course Problems: Assessment/Plan Assessment Abdominal pain Cholelithiasis/post cholecystectomy Hypertension History of renal problem Gout/flare Plan Surgical care We will sign off and follow as needed Subjective 24 Hr Interval Summary Free Text/Dictation Course reviewed with nursing staff Patient underwent uneventful cholecystectomy Complaints of pain in his arms and knee which he thinks is a flare of his gout GI jeffrey he appears stable We will sign off and follow up as needed Exam/Review of Systems Vital Signs Vitals Vital Signs Date Time Temp Pulse Resp B/P Pulse Ox O2 Delivery O2 Flow Rate FiO2 03/06/17 09:00 Nasal Cannula 2.0 03/06/17 08:15 97.8 107 22 131/70 95 03/05/17 17:07 100 Intake and Output 03/05/17 03/05/17 03/06/17 15:00 23:00 07:00 Intake Total 1300 ml 1280 ml Output Total 425 ml 1600 ml Balance 875 ml -320 ml Exam Constitutional: alert, oriented, well developed Head: atraumatic, normocephalic Eyes: EOMI, PERRL, nl conjunctiva, nl lids, nl sclera ENMT: nl external ears & nose, nl lips & teeth, nl nasal mucosa & septum Neck: non-tender, supple Respiratory: clear to auscultation, normal air movement Cardiovascular: nl pulses, regular rate and rhythm Gastrointestinal: bowel sounds, hepatomegaly, soft, tender (Mild tenderness near incision sites), No ascites, No distended, No mass Musculoskeletal: nl extremities to inspection Extremities: normal pulses Skin: nl turgor, No rash or lesions Lymph: nl lymph nodes Results Result Diagram: 03/06/17 0426 03/06/17 0426 Results 24 hrs Laboratory Tests Test 03/05/17 16:40 03/06/17 04:26 Blood Gas Specimen Source Blood arterial Arterial Blood Date Drawn 03/05/2017 4:30:46 PM Arterial Blood pH (Temp corrected) 7.310 L Arterial Blood pCO2 (Temp correct) 36.3 Arterial Blood pO2 (Temp corrected) 64.8 L Arterial Blood HCO3 18.1 L Arterial Blood Base Excess -7.8 L Arterial Blood Oxygen Saturation 92.0 L Mike Test ACCEPTAB Arterial Blood Gas Puncture Site Left Radial Arterial Blood Carboxyhemoglobin 0.3 Arterial Blood Methemoglobin 0.4 Blood Gas A-a O2 Differential 614.5 H Oxyhemoglobin Percent 91.4 L Total Hemoglobin 11.2 L Blood Gas Temperature 36.0 Blood Gas Respiration Rate 16.0 Blood Gas Actual Respiration Rate 21 Blood Gas Modality MASK - BIPAP FiO2 100.0 Blood Gas Pressure Support 10 Blood Gas IPAP/EPAP Ratio 15/ Blood Gas Critical Value Read Back Alejandro WOLFF RN Blood Gas Notified Whom Lalo Blood Gas Notified Time 03/05/2017 4:41:40 PM White Blood Count 12.9 H Red Blood Count 3.17 L Hemoglobin 9.2 L Hematocrit 27.8 L Mean Corpuscular Volume 87.7 Mean Corpuscular Hemoglobin 29.0 Mean Corpuscular Hemoglobin Concent 33.1 Red Cell Distribution Width 15.8 H Platelet Count 456 H Mean Platelet Volume 10.0 Neutrophils % 80.2 H Lymphocytes % 10.4 L Monocytes % 8.3 Eosinophils % 0.2 Basophils % 0.1 Nucleated Red Blood Cells % 0.0 Neutrophils # 10.4 H Lymphocytes # 1.3 Monocytes # 1.1 H Eosinophils # 0.0 Basophils # 0.0 Nucleated Red Blood Cells # 0.0 Sodium Level 132 L Potassium Level 4.4 Chloride Level 103 Carbon Dioxide Level 22 Anion Gap 11 Blood Urea Nitrogen 16 Creatinine 1.61 H Glucose Level 120 Calcium Level 8.2 L Total Bilirubin 0.6 Direct Bilirubin 0.00 Indirect Bilirubin 0.6 Aspartate Amino Transf (AST/SGOT) 47 #H Alanine Aminotransferase (ALT/SGPT) 39 Alkaline Phosphatase 75 Total Protein 5.4 L Albumin 2.9 L Globulin 2.50 Albumin/Globulin Ratio 1.16 Medications Medications Current Medications Ondansetron HCl (Zofran Inj) 4 mg Q6H PRN IV N/V Last administered on 03/04/17 09:39; Admin Dose 4 MG; Start 03/01/17 at 08:00 Allopurinol (Zyloprim) 100 mg BID PO Last administered on 03/06/17 08:28; Admin Dose 100 MG; Start 03/01/17 at 21:00 Enalapril Maleate (Vasotec) 10 mg DAILY PO Last administered on 03/06/17 08:28 ; Admin Dose 10 MG; Start 03/02/17 at 09:00 Metoprolol Tartrate (Lopressor) 25 mg DAILY PO Last administered on 03/06/17 08 :27; Admin Dose 25 MG; Start 03/02/17 at 09:00 Pantoprazole (Protonix Iv) 40 mg BID@06,18 IV Last administered on 03/06/17 05: 31; Admin Dose 40 MG; Start 03/04/17 at 18:00 Morphine Sulfate 4 mg 4 mg Q3H PRN IV pain Last administered on 03/06/17 10:37 ; Admin Dose 4 MG; Start 03/04/17 at 15:00 Potassium Chloride/Dextrose/ Sod Cl 1,000 ml @ 80 mls/hr [id number] IV Last administered on 03/05/17 23:29; Admin Dose 80 MLS/HR; Start 03/04/17 at 22:30 Piperacillin Sod/ Tazobactam Sod (Zosyn 3.375gm/ 100 ml (Pmx)) 100 ml @ 200 mls /hr Q8 IVPB Last administered on 03/06/17 05:32; Admin Dose 200 MLS/HR; Start 03/05/17 at 11:30 CALVIN THAKUR MD Mar 06, 2017 14:24
[2017-03-06] MEDS: COLCHICINE 0.6 MG TAB PO SCH (15:57)
[2017-03-06 22:46] VITALS: BP 129/71; RESP 20
--- NOTE | 2017-03-06 23:06 | PN ---
Date/Time of Note Date/Time of Note DATE: 03/06/17 TIME: 23:02 Assessment/Plan Lines/Catheters IV Catheter Type (from Nrs): Peripheral IV Holland in Place (from Nrs): Yes Assessment/Plan Chief Complaint/Hosp Course 1. Abdominal pain secondary to gallstone pancreatitis & cholecystitis s/p 3 port lap ashleigh -abx -drain -pain control 2. BMI 30 -Nutrition optimization encouraged -Exercise as possible encouraged 3. Anemia, likely secondary to iron deficiency. -Monitor 4. Leukocytosis, likely secondary to above. -as above 5. Acute on Chronic kidney disease. -Judicious fluid management -Avoid nephrotoxic agents 6. Gout. -Medical management 7. Hypertension -Diet and medication control -Weight optimization encouraged Thank you Problems: Subjective 24 Hr Interval Summary s/p 3 port lap ashleigh, liver bx, drain 03/05. Min pain. No fevers or chills. No nausea vomiting. No chest pain or shortness of breath. No cough. No seizure. No blood per mouth or rectum. No dysuria. Leukocytosis improving. Exam/Review of Systems Vital Signs Vitals Vital Signs Date Time Temp Pulse Resp B/P Pulse Ox O2 Delivery O2 Flow Rate FiO2 03/06/17 22:46 98.6 100 20 129/71 97 03/06/17 20:30 3.0 03/06/17 09:00 Nasal Cannula 03/05/17 17:07 100 Intake and Output 03/05/17 03/05/17 03/06/17 15:00 23:00 07:00 Intake Total 1300 ml 1280 ml Output Total 425 ml 1600 ml Balance 875 ml -320 ml Exam Free Text/Dictation Constitutional: alert, obese, No distress Psych: nl mood/affect, No anxiety Head: atraumatic, normocephalic Eyes: EOMI, PERRL, nl conjunctiva, No icteric ENMT: mucosa pink and moist, nl external ears & nose Neck: non-tender, No jvd Respiratory: normal air movement, No congested cough, No labored breathing Cardiovascular: edema (Minimal), regular rate and rhythm Gastrointestinal: soft, min tender, drain No distended, No rebound or guarding Musculoskeletal: nl extremities to inspection, No joint tenderness Extremities: normal pulses, No calf tenderness, No cyanosis Neurological: nl mental status, nl speech, No nl strength Skin: No diaphoresis, No rash or lesions Lymph: nl lymph nodes Results Result Diagram: 03/06/17 0426 03/06/17 0426 KAREN LASSITER MD Mar 06, 2017 23:06
[2017-03-07] MEDS: D5W-0.45 NACL + KCL 20 MEQ 1,000 ML IV SCH ×2 (00:43→14:04)
[2017-03-07] MEDS: PIPER-TAZO 3.375 GM IV (PMX) 100 ML IVPB SCH ×3 (06:05→21:15)
[2017-03-07] MEDS: PANTOPRAZOLE 40 MG INJ IV SCH ×2 (06:05→18:02)
[2017-03-07 08:17] VITALS: BP 133/69; RESP 17
[2017-03-07] MEDS: COLCHICINE 0.6 MG TAB PO SCH (08:55)
[2017-03-07] MEDS: METOPROLOL 25 MG TAB PO SCH (08:55)
[2017-03-07] MEDS: ENALAPRIL 10 MG TAB PO SCH (08:56)
[2017-03-07] MEDS: ALLOPURINOL 100 MG TAB PO SCH ×2 (08:56→20:55)
--- NOTE | 2017-03-07 12:27 | PN ---
Date/Time of Note Date/Time of Note DATE: 03/07/17 TIME: 12:25 Assessment/Plan VTE Prophylaxis VTE Prophylaxis Intervention: SCD's Lines/Catheters IV Catheter Type (from Nrsg): Peripheral IV Urinary Cath still in place: Yes Reason Cath still needed: other (indicate) (need for Is/Os) Assessment/Plan Assessment/Plan 86 yo M with pmhx gout, HTN, CKD admitted for abd pain found to have gallstone pancreatitis sp lap ashleigh by gen surg 6.2 #gallstone pancreatitis: sp lap ashleigh 6.2 abx, pain meds, IVFs as per gen surg given inc abd pain today, I have asked the nurse to reach out to Dr Tamez/ general surgery in follow up #HTN: cont home meds gout flare: cont colchicine course (started 6.3). Also cont home allopurinol diet: as per gen surg DVT prophx: SCDs dispo: as per gen surg check AM ChemP as gen surg has pt on IVFs that contain potassium Subjective 24 Hr Interval Summary Free Text/Dictation Conversation facilitated by language line Pt reports increased abd pain this AM. No more foot pain Exam/Review of Systems Vital Signs Vitals Vital Signs Date Time Temp Pulse Resp B/P Pulse Ox O2 Delivery O2 Flow Rate FiO2 03/07/17 08:17 98.9 96 17 133/69 97 03/06/17 20:45 Nasal Cannula 2.0 03/05/17 17:07 100 Intake and Output 03/06/17 03/06/17 03/07/17 14:59 22:59 06:59 Intake Total 220 ml 1090 ml 1660 ml Output Total 500 ml 1250 ml Balance 220 ml 590 ml 410 ml Exam uncomfortable, laying flat no mrg lungs clear abd with diffuse mod distension, no rebound or guarding, +SHANTE in RLQ with dark drainage no le edema no rashes Results Result Diagram: 03/06/176 03/06/176 Medications Medications Current Medications Ondansetron HCl (Zofran Inj) 4 mg Q6H PRN IV N/V Last administered on 03/04/17 09:39; Admin Dose 4 MG; Start 03/01/17 at 08:00 Allopurinol (Zyloprim) 100 mg BID PO Last administered on 03/07/17 08:56; Admin Dose 100 MG; Start 03/01/17 at 21:00 Enalapril Maleate (Vasotec) 10 mg DAILY PO Last administered on 03/07/17 08:56 ; Admin Dose 10 MG; Start 03/02/17 at 09:00 Metoprolol Tartrate (Lopressor) 25 mg DAILY PO Last administered on 03/07/17 08 :55; Admin Dose 25 MG; Start 03/02/17 at 09:00 Pantoprazole (Protonix Iv) 40 mg BID@06,18 IV Last administered on 03/07/17 06: 05; Admin Dose 40 MG; Start 03/04/17 at 18:00 Morphine Sulfate 4 mg 4 mg Q3H PRN IV pain Last administered on 03/06/17 17:28 ; Admin Dose 4 MG; Start 03/04/17 at 15:00 Potassium Chloride/Dextrose/ Sod Cl 1,000 ml @ 80 mls/hr [id number] IV Last administered on 03/07/17 00:43; Admin Dose 80 MLS/HR; Start 03/04/17 at 22:30 Piperacillin Sod/ Tazobactam Sod (Zosyn 3.375gm/ 100 ml (Pmx)) 100 ml @ 200 mls /hr Q8 IVPB Last administered on 03/07/17 06:05; Admin Dose 200 MLS/HR; Start 03/05/17 at 11:30 Colchicine (Colchicine) 0.6 mg DAILY PO Last administered on 03/07/17 08:55; Admin Dose 0.6 MG; Start 03/06/17 at 15:30 LORI MIRANDA MD Mar 07, 2017 12:27
--- NOTE | 2017-03-07 13:25 | PN ---
Date/Time of Note Date/Time of Note DATE: 03/07/17 TIME: 13:24 Assessment/Plan Lines/Catheters IV Catheter Type (from Nrsg): Peripheral IV Holland in Place (from Nrs): Yes Assessment/Plan Chief Complaint/Hosp Course 1. Abdominal pain secondary to gallstone pancreatitis & cholecystitis s/p 3 port lap ashleigh -abx -drain -pain control -labs -dc planning per medical team 2. BMI 30 -Nutrition optimization encouraged -Exercise as possible encouraged 3. Anemia, likely secondary to iron deficiency. -Monitor 4. Leukocytosis, likely secondary to above. -as above 5. Acute on Chronic kidney disease. -Judicious fluid management -Avoid nephrotoxic agents 6. Gout. -Medical management 7. Hypertension -Diet and medication control -Weight optimization encouraged Thank you Problems: Subjective 24 Hr Interval Summary s/p 3 port lap ashleigh, liver bx, drain 03/05. Min pain. No fevers or chills. No nausea vomiting. No chest pain or shortness of breath. No cough. No seizure. No blood per mouth or rectum. No dysuria. No labs today Exam/Review of Systems Vital Signs Vitals Vital Signs Date Time Temp Pulse Resp B/P Pulse Ox O2 Delivery O2 Flow Rate FiO2 03/07/17 08:17 98.9 96 17 133/69 97 03/06/17 20:45 Nasal Cannula 2.0 03/05/17 17:07 100 Intake and Output 03/06/17 03/06/17 03/07/17 15:00 23:00 07:00 Intake Total 220 ml 1090 ml 1660 ml Output Total 500 ml 1250 ml Balance 220 ml 590 ml 410 ml Exam Free Text/Dictation Constitutional: alert, obese, No distress Psych: nl mood/affect, No anxiety Head: atraumatic, normocephalic Eyes: EOMI, PERRL, nl conjunctiva, No icteric ENMT: mucosa pink and moist, nl external ears & nose Neck: non-tender, No jvd Respiratory: normal air movement, No congested cough, No labored breathing Cardiovascular: edema (Minimal), regular rate and rhythm Gastrointestinal: soft, min tender, drain No distended, No rebound or guarding Musculoskeletal: nl extremities to inspection, No joint tenderness Extremities: normal pulses, No calf tenderness, No cyanosis Neurological: nl mental status, nl speech, No nl strength Skin: No diaphoresis, No rash or lesions Lymph: nl lymph nodes Results Result Diagram: 03/06/1742503/06/17 0426 KAREN LASSITER MD Mar 07, 2017 13:25
[2017-03-07 20:04] VITALS: BP 149/71; RESP 17
--- NOTE | 2017-03-07 23:40 | CONS ---
Date/Time of Note Date/Time of Note DATE: 03/07/17 TIME: 23:40 Assessment/Plan Assessment/Plan Chief Complaint/Hosp Course Anemia, likely secondary to iron deficiency, with a history of gastrointestinal bleed in the past requiring blood transfusion. Hemoglobin stable. cont to monitor closely no indications for transfusion at present RECHECK COUNT IN AM Leukocytosis, likely secondary to gallstone pancreatitis THROMBOCYTOSIS- REACTIVE CONT TO MONITOR Gallstone pancreatitis. - post op Abdominal pain, most likely secondary to above.. Chronic kidney disease. History of gout. History of hypertension, blood pressure within acceptable range. 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 Problems: Consultation Date/Type/Reason Admit Date/Time March 01, 2017 at 05:46 Initial Consult Date 03/01/17 Type of Consultation: [facility] Referring Provider: MAGNOLIA PIERRE MD 24 HR Interval Summary Free Text/Dictation increased abd pain this AM. No more foot pain Exam/Review of Systems Vital Signs Vitals Vital Signs Date Time Temp Pulse Resp B/P Pulse Ox O2 Delivery O2 Flow Rate FiO2 03/07/17 20:50 Nasal Cannula 3.0 03/07/17 20:04 98.4 71 17 149/71 98 03/05/17 17:07 100 Intake and Output 03/06/17 03/06/17 03/07/17 15:00 23:00 07:00 Intake Total 220 ml 1090 ml 1660 ml Output Total 500 ml 1250 ml Balance 220 ml 590 ml 410 ml Exam Exam nad, laying in bed no mrg lungs clear abd with SHANTE drain out of RLQ with serosang drainage no rashes Results Result Diagram: 03/06/17 0426 03/06/17 0426 Medications Medications Current Medications Ondansetron HCl (Zofran Inj) 4 mg Q6H PRN IV N/V Last administered on 03/04/17 09:39; Admin Dose 4 MG; Start 03/01/17 at 08:00 Allopurinol (Zyloprim) 100 mg BID PO Last administered on 03/07/17 20:55; Admin Dose 100 MG; Start 03/01/17 at 21:00 Enalapril Maleate (Vasotec) 10 mg DAILY PO Last administered on 03/07/17 08:56 ; Admin Dose 10 MG; Start 03/02/17 at 09:00 Metoprolol Tartrate (Lopressor) 25 mg DAILY PO Last administered on 03/07/17 08 :55; Admin Dose 25 MG; Start 03/02/17 at 09:00 Pantoprazole (Protonix Iv) 40 mg BID@06,18 IV Last administered on 03/07/17 18: 02; Admin Dose 40 MG; Start 03/04/17 at 18:00 Morphine Sulfate 4 mg 4 mg Q3H PRN IV pain Last administered on 03/06/17 17:28 ; Admin Dose 4 MG; Start 03/04/17 at 15:00 Potassium Chloride/Dextrose/ Sod Cl 1,000 ml @ 80 mls/hr [id number] IV Last administered on 03/07/17 14:04; Admin Dose 80 MLS/HR; Start 03/04/17 at 22:30 Piperacillin Sod/ Tazobactam Sod (Zosyn 3.375gm/ 100 ml (Pmx)) 100 ml @ 200 mls /hr Q8 IVPB Last administered on 03/07/17 21:15; Admin Dose 200 MLS/HR; Start 03/05/17 at 11:30 Colchicine (Colchicine) 0.6 mg DAILY PO Last administered on 03/07/17 08:55; Admin Dose 0.6 MG; Start 03/06/17 at 15:30; Stop 03/12/17 at 15:29 NARAYAN FERNÁNDEZ MD Mar 07, 2017 23:40
[2017-03-07] MEDS: morphine 4 MG/ML VIAL IV PRN (23:52)
[2017-03-08] MEDS: D5W-0.45 NACL + KCL 20 MEQ 1,000 ML IV SCH ×3 (03:16→17:08)
[2017-03-08] MEDS: morphine 4 MG/ML VIAL IV PRN ×4 (05:02→20:52)
[2017-03-08] MEDS: PANTOPRAZOLE 40 MG INJ IV SCH ×2 (05:04→17:08)
[2017-03-08 05:56] LABS: CALCIUM 8.3 mg/dl (8.4-10.2); CREATININE 1.67 mg/dl (0.61-1.24); POTASSIUM 4.9 mmol/L (3.5-5.1)
[2017-03-08] MEDS: PIPER-TAZO 3.375 GM IV (PMX) 100 ML IVPB SCH ×3 (06:09→22:07)
[2017-03-08 07:52] VITALS: BP 153/72; RESP 16
[2017-03-08 08:14] LABS: ADD SCAN DIFF NO
[2017-03-08] MEDS: COLCHICINE 0.6 MG TAB PO SCH (08:15)
[2017-03-08] MEDS: ALLOPURINOL 100 MG TAB PO SCH ×2 (08:15→20:53)
[2017-03-08] MEDS: METOPROLOL 25 MG TAB PO SCH (08:16)
[2017-03-08] MEDS: ENALAPRIL 10 MG TAB PO SCH (08:16)
[2017-03-08 11:15] LABS: BASOPHILS % 0.2 % (0.0-2.0); EOSINOPHILS # 0.3 10^3/ul (0.0-0.5); EOSINOPHILS % 2.6 % (0.0-7.0); HEMATOCRIT 27.1 % (42.0-52.0); HEMOGLOBIN 8.9 g/dl (14.0-18.0); LYMPHOCYTES # 1.3 10^3/ul (0.8-2.9); LYMPHOCYTES % 11.9 % (15.0-51.0); MEAN CORPUSCULAR HEMOGLOBIN 29.3 pg (29.0-33.0); MEAN CORPUSCULAR HGB CONC 32.8 g/dl (32.0-37.0); MEAN CORPUSCULAR VOLUME 89.1 fl (82.0-101.0); MEAN PLATELET VOLUME 10.2 fl (7.4-10.4); MONOCYTE # 0.6 10^3/ul (0.3-0.9); NEUTROPHIL # 8.4 10^3/ul (1.6-7.5); NEUTROPHILS % 78.7 % (39.0-77.0); PLATELET COUNT 480 10^3/UL (140-415); RED BLOOD COUNT 3.04 10^6/ul (4.70-6.10); RED CELL DISTRIBUTION WIDTH 15.9 % (11.5-14.5); WHITE BLOOD COUNT 10.7 10^3/ul (4.8-10.8)
[2017-03-08] MEDS ORDERED: ALBUTEROL/IPRATROPIUM (NEB) 3 ML AMP HHN STA (11:42)
--- NOTE | 2017-03-08 15:07 | PN ---
Date/Time of Note Date/Time of Note DATE: 03/08/17 TIME: 15:04 Assessment/Plan VTE Prophylaxis VTE Prophylaxis Intervention: SCD's Lines/Catheters IV Catheter Type (from Nrsg): Peripheral IV Urinary Cath still in place: Yes Reason Cath still needed: urinary retention Assessment/Plan Chief Complaint/Hosp Course Assessment/Plan: 86 yo M with pmhx gout, HTN, CKD admitted for abd pain found to have gallstone pancreatitis sp lap ashleigh by gen surg 1. gallstone pancreatitis: sp lap ashleigh POD # 3 - continue abx, pain meds, IVFs as per gen surg - given inc abd pain today, for HIDA scan, f/u results 2. HTN: stable - cont home meds 3. gout flare: slowly improving - cont colchicine course (started 6.3). - Also cont home allopurinol 4. diet: as per gen surg 5. DVT prophx: SCDs 6. dispo: as per gen surg, PT consult Problems: Subjective 24 Hr Interval Summary Free Text/Dictation Pt has had no BM yet. Awaiting HIDA scan after experiencing some and pain today. Exam/Review of Systems Vital Signs Vitals Vital Signs Date Time Temp Pulse Resp B/P Pulse Ox O2 Delivery O2 Flow Rate FiO2 03/08/17 12:23 70 22 98 Nasal Cannula 3.0 03/08/17 07:52 98.1 153/72 03/05/17 17:07 100 Intake and Output 03/07/17 03/07/17 03/08/17 15:00 23:00 07:00 Intake Total 100 ml 1500 ml Output Total 2090 ml Balance 100 ml -590 ml Exam Constitutional: alert, oriented, sleeping presently Head: atraumatic, normocephalic Eyes: EOMI, PERRL, nl conjunctiva, nl lids, nl sclera ENMT: nl external ears & nose, nl lips & teeth, nl nasal mucosa & septum Neck: non-tender, supple Respiratory: clear to auscultation, normal air movement Cardiovascular: nl pulses, regular rate and rhythm Gastrointestinal: bowel sounds, hepatomegaly, soft, tender (Mild tenderness near incision sites), No ascites, No distended, No mass Musculoskeletal: nl extremities to inspection Extremities: normal pulses Results Result Diagram: 03/08/17 0431 03/08/17 0431 Results 24 hrs Laboratory Tests Test 03/08/17 04:31 White Blood Count 10.7 Red Blood Count 3.04 L Hemoglobin 8.9 L Hematocrit 27.1 L Mean Corpuscular Volume 89.1 Mean Corpuscular Hemoglobin 29.3 Mean Corpuscular Hemoglobin Concent 32.8 Red Cell Distribution Width 15.9 H Platelet Count 480 H Mean Platelet Volume 10.2 Neutrophils % 78.7 H Lymphocytes % 11.9 L Monocytes % 6.0 Eosinophils % 2.6 Basophils % 0.2 Nucleated Red Blood Cells % 0.0 Neutrophils # 8.4 H Lymphocytes # 1.3 Monocytes # 0.6 Eosinophils # 0.3 Basophils # 0.0 Nucleated Red Blood Cells # 0.0 Sodium Level 134 L Potassium Level 4.9 Chloride Level 107 Carbon Dioxide Level 20 L Anion Gap 12 Blood Urea Nitrogen 21 H Creatinine 1.67 H Glucose Level 86 Calcium Level 8.3 L Medications Medications Current Medications Ondansetron HCl (Zofran Inj) 4 mg Q6H PRN IV N/V Last administered on 03/04/17 09:39; Admin Dose 4 MG; Start 03/01/17 at 08:00 Allopurinol (Zyloprim) 100 mg BID PO Last administered on 03/08/17 08:15; Admin Dose 100 MG; Start 03/01/17 at 21:00 Enalapril Maleate (Vasotec) 10 mg DAILY PO Last administered on 03/08/17 08:16 ; Admin Dose 10 MG; Start 03/02/17 at 09:00 Metoprolol Tartrate (Lopressor) 25 mg DAILY PO Last administered on 03/08/17 08 :16; Admin Dose 25 MG; Start 03/02/17 at 09:00 Pantoprazole 40 mg 40 mg BID@06,18 IV Last administered on 03/08/17 05:04; Admin Dose 40 MG; Start 03/04/17 at 18:00 Potassium Chloride/Dextrose/ Sod Cl 1,000 ml @ 80 mls/hr [id number] IV Last administered on 03/08/17 03:16; Admin Dose 80 MLS/HR; Start 03/04/17 at 22:30 Piperacillin Sod/ Tazobactam Sod (Zosyn 3.375gm/ 100 ml (Pmx)) 100 ml @ 200 mls /hr Q8 IVPB Last administered on 03/08/17 13:24; Admin Dose 200 MLS/HR; Start 03/05/17 at 11:30 Colchicine (Colchicine) 0.6 mg DAILY PO Last administered on 03/08/17 08:15; Admin Dose 0.6 MG; Start 03/06/17 at 15:30; Stop 03/12/17 at 15:29 Morphine Sulfate (morphine) 2 mg Q3H PRN IV pain; Start 03/08/17 at 18:00; Status UNV Acetaminophen/ Hydrocodone Bitart ([place] (5/325)) 1 tab Q4H PRN PO PAIN LEVEL 7 -10; Start 03/08/17 at 15:30; Status UNV MINA CALI Mar 08, 2017 15:07
[2017-03-08 19:04] VITALS: BP 167/79; RESP 18
[2017-03-08 21:19] VITALS: BP 144/70; RESP 21
[2017-03-08] MEDS: ALBUTEROL/IPRATROPIUM (NEB) 3 ML AMP HHN PRN (21:23)
--- NOTE | 2017-03-08 23:27 | CONS ---
Date/Time of Note Date/Time of Note DATE: 03/08/17 TIME: 23:26 Assessment/Plan Assessment/Plan Chief Complaint/Hosp Course Anemia, likely secondary to iron deficiency, with a history of gastrointestinal bleed in the past requiring blood transfusion. Hemoglobin stable. Leukocytosis, likely secondary to gallstone pancreatitis THROMBOCYTOSIS- REACTIVE CONT TO MONITOR Gallstone pancreatitis. Abdominal pain, most likely secondary to above.. Chronic kidney disease. History of gout. History of hypertension, blood pressure within acceptable range. 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 Problems: Consultation Date/Type/Reason Admit Date/Time March 01, 2017 at 05:46 Initial Consult Date 03/01/17 [facility] Referring Provider: MAGNOLIA PIERRE MD 24 HR Interval Summary Free Text/Dictation Pt has had no BM yet. Awaiting HIDA scan after experiencing some and pain today. count improving Exam/Review of Systems Vital Signs Vitals Vital Signs Date Time Temp Pulse Resp B/P Pulse Ox O2 Delivery O2 Flow Rate FiO2 03/08/17 21:24 3.0 03/08/17 21:24 90 20 99 Nasal Cannula 03/08/17 21:19 99.3 144/70 03/05/17 17:07 100 Intake and Output 03/07/17 03/07/17 03/08/17 15:00 23:00 07:00 Intake Total 100 ml 1500 ml Output Total 2090 ml Balance 100 ml -590 ml Exam Exam Constitutional: alert, oriented, sleeping presently Head: atraumatic, normocephalic Eyes: EOMI, PERRL, nl conjunctiva, nl lids, nl sclera ENMT: nl external ears & nose, nl lips & teeth, nl nasal mucosa & septum Neck: non-tender, supple Respiratory: clear to auscultation, normal air movement Cardiovascular: nl pulses, regular rate and rhythm Gastrointestinal: bowel sounds, hepatomegaly, soft, tender (Mild tenderness near incision sites), No ascites, No distended, No mass Musculoskeletal: nl extremities to inspection Extremities: normal pulses Results Result Diagram: 03/08/17 0431 03/08/17 0431 Results 24 hrs Laboratory Tests Test 03/08/17 04:31 White Blood Count 10.7 Red Blood Count 3.04 L Hemoglobin 8.9 L Hematocrit 27.1 L Mean Corpuscular Volume 89.1 Mean Corpuscular Hemoglobin 29.3 Mean Corpuscular Hemoglobin Concent 32.8 Red Cell Distribution Width 15.9 H Platelet Count 480 H Mean Platelet Volume 10.2 Neutrophils % 78.7 H Lymphocytes % 11.9 L Monocytes % 6.0 Eosinophils % 2.6 Basophils % 0.2 Nucleated Red Blood Cells % 0.0 Neutrophils # 8.4 H Lymphocytes # 1.3 Monocytes # 0.6 Eosinophils # 0.3 Basophils # 0.0 Nucleated Red Blood Cells # 0.0 Sodium Level 134 L Potassium Level 4.9 Chloride Level 107 Carbon Dioxide Level 20 L Anion Gap 12 Blood Urea Nitrogen 21 H Creatinine 1.67 H Glucose Level 86 Calcium Level 8.3 L Medications Medications Current Medications Ondansetron HCl (Zofran Inj) 4 mg Q6H PRN IV N/V Last administered on 03/04/17 09:39; Admin Dose 4 MG; Start 03/01/17 at 08:00 Allopurinol (Zyloprim) 100 mg BID PO Last administered on 03/08/17 20:53; Admin Dose 100 MG; Start 03/01/17 at 21:00 Enalapril Maleate (Vasotec) 10 mg DAILY PO Last administered on 03/08/17 08:16 ; Admin Dose 10 MG; Start 03/02/17 at 09:00 Metoprolol Tartrate (Lopressor) 25 mg DAILY PO Last administered on 03/08/17 08 :16; Admin Dose 25 MG; Start 03/02/17 at 09:00 Pantoprazole 40 mg 40 mg BID@06,18 IV Last administered on 03/08/17 17:08; Admin Dose 40 MG; Start 03/04/17 at 18:00 Potassium Chloride/Dextrose/ Sod Cl 1,000 ml @ 80 mls/hr [id number] IV Last administered on 03/08/17 17:08; Admin Dose 80 MLS/HR; Start 03/04/17 at 22:30 Piperacillin Sod/ Tazobactam Sod (Zosyn 3.375gm/ 100 ml (Pmx)) 100 ml @ 200 mls /hr Q8 IVPB Last administered on 03/08/17 22:07; Admin Dose 200 MLS/HR; Start 03/05/17 at 11:30 Colchicine (Colchicine) 0.6 mg DAILY PO Last administered on 03/08/17 08:15; Admin Dose 0.6 MG; Start 03/06/17 at 15:30; Stop 03/12/17 at 15:29 Morphine Sulfate (morphine) 2 mg Q3H PRN IV pain Last administered on 03/08/17 20:52; Admin Dose 2 MG; Start 03/08/17 at 18:00 Acetaminophen/ Hydrocodone Bitart ([place] (5/325)) 1 tab Q4H PRN PO PAIN LEVEL 7 -10; Start 03/08/17 at 15:30 Acetaminophen (Tylenol Tab) 650 mg Q6H PRN PO PAIN AND OR ELEVATED TEMP; Start 03/08/17 at 23:30 Tramadol HCl (Ultram) 50 mg Q6H PRN PO PAIN; Start 03/08/17 at 23:30 NARAYAN FERNÁNDEZ MD Mar 08, 2017 23:27
--- NOTE | 2017-03-08 23:41 | RADRPT ---
PROCEDURE: Nuclear medicine HIDA scan CLINICAL INDICATION: Right upper quadrant pain. Clinical concern for bile leak TECHNIQUE: Following the intravenous injection of 8 mCi technetium 99 Mebrofenin, dynamic images o salma the biliary system are obtained at 5-minute intervals up to 60 minutes. Supplemental delayed la teral and posterior images are obtained COMPARISON: MRI of 03/01/2017. Chest x-ray 03/05/2017 FINDINGS: There is homogeneous distribution of radiopharmaceutical throughout the hepatic parenchyma. Activit y is seen within the percutaneous drainage catheter visible on the chest x-ray of 03/05/2017 at appr oximately 15 minutes following injection. Activity is seen within the common bile duct but no visib le activity is demonstrated within the bowel. A focal collection to suggest a biloma is not evident RPTAT:HJJR IMPRESSION: Radiopharmaceutical activity within the percutaneous drainage catheter for this patient who has unde rgone cholecystectomy since the prior MRI of 03/01/2017 confirms the clinical suspicion of a bile le ak without activity seen in the small bowel or evidence for a biloma. Physician Tania Date Time Electronically viewed and signed by Physician Tania on 03/08/2017 23:41 JR/
[2017-03-09 00:31] VITALS: BP 137/74; RESP 19
[2017-03-09] MEDS: ACETAMINOPHEN 325 MG TAB PO PRN (01:16)
[2017-03-09 03:23] VITALS: BP 139/80; PULSE 100; RESP 22
[2017-03-09] MEDS: ALBUTEROL/IPRATROPIUM (NEB) 3 ML AMP HHN PRN ×2 (04:26→15:29)
--- NOTE | 2017-03-09 04:36 | PN ---
Date/Time of Note Date/Time of Note DATE: 03/08/17 TIME: 11:34 Assessment/Plan Lines/Catheters IV Catheter Type (from Nrs): Peripheral IV Holland in Place (from Nrs): Yes Assessment/Plan Chief Complaint/Hosp Course 1. Abdominal pain secondary to gallstone pancreatitis & cholecystitis s/p 3 port lap ashleigh. Now with ? bile leak -hida -abx -drain -pain control -labs 2. BMI 30 -Nutrition optimization encouraged -Exercise as possible encouraged 3. Anemia, likely secondary to iron deficiency. -Monitor 4. Leukocytosis, likely secondary to above. -as above 5. Acute on Chronic kidney disease. -Judicious fluid management -Avoid nephrotoxic agents 6. Gout. -Medical management 7. Hypertension -Diet and medication control -Weight optimization encouraged Thank you Late entry 03/08 Problems: Subjective 24 Hr Interval Summary s/p 3 port lap ashleigh, liver bx, drain 03/05. Greenish discoloration in [place]. Min pain. No fevers or chills. No nausea vomiting. No chest pain or shortness of breath. No cough. No seizure. No blood per mouth or rectum. No dysuria. Exam/Review of Systems Vital Signs Vitals Vital Signs Date Time Temp Pulse Resp B/P Pulse Ox O2 Delivery O2 Flow Rate FiO2 03/09/17 04:26 93 20 99 Nasal Cannula 3.0 03/09/17 03:23 139/80 03/09/17 00:31 98.2 03/05/17 17:07 100 Intake and Output 03/08/17 03/08/17 03/09/17 15:00 23:00 07:00 Intake Total 100 ml 1400 ml Output Total 1485 ml Balance 100 ml -85 ml Exam Free Text/Dictation Constitutional: alert, obese, No distress Psych: nl mood/affect, No anxiety Head: atraumatic, normocephalic Eyes: EOMI, PERRL, nl conjunctiva, No icteric ENMT: mucosa pink and moist, nl external ears & nose Neck: non-tender, No jvd Respiratory: normal air movement, No congested cough, No labored breathing Cardiovascular: edema (Minimal), regular rate and rhythm Gastrointestinal: soft, min tender, drain No distended, No rebound or guarding Musculoskeletal: nl extremities to inspection, No joint tenderness Extremities: normal pulses, No calf tenderness, No cyanosis Neurological: nl mental status, nl speech, No nl strength Skin: No diaphoresis, No rash or lesions Lymph: nl lymph nodes Results Result Diagram: 03/08/17 0431 03/08/17 0431 KAREN LASSITER MD Mar 09, 2017 04:36
[2017-03-09] MEDS: traMADol 50 MG TAB PO PRN ×2 (05:02→11:47)
[2017-03-09] MEDS: PANTOPRAZOLE 40 MG INJ IV SCH ×2 (05:09→17:03)
[2017-03-09] MEDS: PIPER-TAZO 3.375 GM IV (PMX) 100 ML IVPB SCH ×3 (05:09→21:26)
[2017-03-09 05:44] LABS: ADD SCAN DIFF NO
[2017-03-09 05:53] LABS: BASOPHILS % 0.4 % (0.0-2.0); EOSINOPHILS # 0.4 10^3/ul (0.0-0.5); EOSINOPHILS % 3.4 % (0.0-7.0); HEMATOCRIT 29.1 % (42.0-52.0); HEMOGLOBIN 9.5 g/dl (14.0-18.0); LYMPHOCYTES # 2.2 10^3/ul (0.8-2.9); LYMPHOCYTES % 20.6 % (15.0-51.0); MEAN CORPUSCULAR HEMOGLOBIN 28.7 pg (29.0-33.0); MEAN CORPUSCULAR HGB CONC 32.6 g/dl (32.0-37.0); MEAN CORPUSCULAR VOLUME 87.9 fl (82.0-101.0); MEAN PLATELET VOLUME 9.8 fl (7.4-10.4); MONOCYTE # 0.8 10^3/ul (0.3-0.9); MONOCYTES % 7.7 % (0.0-11.0); NEUTROPHIL # 7.2 10^3/ul (1.6-7.5); NEUTROPHILS % 67.2 % (39.0-77.0); PLATELET COUNT 515 10^3/UL (140-415); RED BLOOD COUNT 3.31 10^6/ul (4.70-6.10); RED CELL DISTRIBUTION WIDTH 15.8 % (11.5-14.5); WHITE BLOOD COUNT 10.7 10^3/ul (4.8-10.8)
[2017-03-09 07:17] LABS: ALBUMIN 2.6 g/dl (3.3-4.9); BILIRUBIN,INDIRECT 0.2 mg/dl (0-1.1); BILIRUBIN,TOTAL 0.2 mg/dl (0.2-1.3)
[2017-03-09 08:44] VITALS: BP 137/74; RESP 18
[2017-03-09] MEDS: ALLOPURINOL 100 MG TAB PO SCH ×2 (08:50→20:27)
[2017-03-09] MEDS: COLCHICINE 0.6 MG TAB PO SCH (08:50)
[2017-03-09] MEDS: D5W-0.45 NACL + KCL 20 MEQ 1,000 ML IV SCH ×2 (08:50→21:26)
[2017-03-09] MEDS: ENALAPRIL 10 MG TAB PO SCH (08:51)
[2017-03-09] MEDS: METOPROLOL 25 MG TAB PO SCH (08:51)
[2017-03-09] MEDS: HYDROCODONE/APAP (5/325) TAB PO PRN ×2 (13:29→19:15)
--- NOTE | 2017-03-09 14:19 | PN ---
Date/Time of Note Date/Time of Note DATE: 03/09/17 TIME: 14:12 Assessment/Plan VTE Prophylaxis VTE Prophylaxis Intervention: other Lines/Catheters [facility] Peripheral IV Urinary Cath still in place: Yes Reason Cath still needed: urinary retention Assessment/Plan Assessment/Plan Assessment * Bile leak S/P cholecystectomy with drain * Hypertension * History of renal problem * Gout/flare Plan * ERCP risks and benefits discuss with patient and relative,agreed with planned procedure * Case was discussed with * continue present management Subjective 24 Hr Interval Summary Free Text/Dictation * Course reviewed with RN * Patient seen and examined * Selwyn Blackburn draining bile * HIDA scan Radiopharmaceutical activity within the percutaneous drainage catheter for this patient who has undergone cholecystectomy since the prior MRI of 03/01/2017 confirms the clinical suspicion of a bile leak without activity seen in the small bowel or evidence for a biloma. Exam/Review of Systems Vital Signs Vitals Vital Signs Date Time Temp Pulse Resp B/P Pulse Ox O2 Delivery O2 Flow Rate FiO2 03/09/17 08:44 97.8 92 18 137/74 97 03/09/17 08:30 Nasal Cannula 3.0 03/05/17 17:07 100 Intake and Output 03/08/17 03/08/17 03/09/17 15:00 23:00 07:00 Intake Total 100 ml 1400 ml 1400 ml Output Total 1485 ml 1830 ml Balance 100 ml -85 ml -430 ml Exam Constitutional: alert, frail Head: normocephalic Eyes: nl conjunctiva Neck: non-tender, supple Respiratory: clear to auscultation, normal air movement Cardiovascular: nl pulses, regular rate and rhythm Gastrointestinal: non-tender, other (selwyn blackburn drain with bile), soft, No rebound or guarding Results Result Diagram: 03/09/17 0437 03/08/17 0431 Results 24 hrs Laboratory Tests Test 03/09/17 04:37 White Blood Count 10.7 Red Blood Count 3.31 L Hemoglobin 9.5 L Hematocrit 29.1 L Mean Corpuscular Volume 87.9 Mean Corpuscular Hemoglobin 28.7 L Mean Corpuscular Hemoglobin Concent 32.6 Red Cell Distribution Width 15.8 H Platelet Count 515 H Mean Platelet Volume 9.8 Neutrophils % 67.2 Lymphocytes % 20.6 Monocytes % 7.7 Eosinophils % 3.4 Basophils % 0.4 Nucleated Red Blood Cells % 0.0 Neutrophils # 7.2 Lymphocytes # 2.2 Monocytes # 0.8 Eosinophils # 0.4 Basophils # 0.0 Nucleated Red Blood Cells # 0.0 Total Bilirubin 0.2 Direct Bilirubin 0.00 Indirect Bilirubin 0.2 Aspartate Amino Transf (AST/SGOT) 26 Alanine Aminotransferase (ALT/SGPT) 35 Alkaline Phosphatase 97 Total Protein 5.0 L Albumin 2.6 L Medications Medications Current Medications Ondansetron HCl (Zofran Inj) 4 mg Q6H PRN IV N/V Last administered on 03/04/17 09:39; Admin Dose 4 MG; Start 03/01/17 at 08:00 Allopurinol (Zyloprim) 100 mg BID PO Last administered on 03/09/17 08:50; Admin Dose 100 MG; Start 03/01/17 at 21:00 Enalapril Maleate (Vasotec) 10 mg DAILY PO Last administered on 03/09/17 08:51 ; Admin Dose 10 MG; Start 03/02/17 at 09:00 Metoprolol Tartrate (Lopressor) 25 mg DAILY PO Last administered on 03/09/17 08 :51; Admin Dose 25 MG; Start 03/02/17 at 09:00 Pantoprazole 40 mg 40 mg BID@06,18 IV Last administered on 03/09/17 05:09; Admin Dose 40 MG; Start 03/04/17 at 18:00 Potassium Chloride/Dextrose/ Sod Cl 1,000 ml @ 80 mls/hr [id number] IV Last administered on 03/09/17 08:50; Admin Dose 80 MLS/HR; Start 03/04/17 at 22:30 Piperacillin Sod/ Tazobactam Sod (Zosyn 3.375gm/ 100 ml (Pmx)) 100 ml @ 200 mls /hr Q8 IVPB Last administered on 03/09/17 13:28; Admin Dose 200 MLS/HR; Start 03/05/17 at 11:30 Colchicine (Colchicine) 0.6 mg DAILY PO Last administered on 03/09/17 08:50; Admin Dose 0.6 MG; Start 03/06/17 at 15:30; Stop 03/12/17 at 15:29 Morphine Sulfate (morphine) 2 mg Q3H PRN IV pain Last administered on 03/08/17 20:52; Admin Dose 2 MG; Start 03/08/17 at 18:00 Acetaminophen/ Hydrocodone Bitart ([place] (5/325)) 1 tab Q4H PRN PO PAIN LEVEL 7 -10 Last administered on 03/09/17 13:29; Admin Dose 1 TAB; Start 03/08/17 at 15: 30 Acetaminophen (Tylenol Tab) 650 mg Q6H PRN PO PAIN AND OR ELEVATED TEMP Last administered on 03/09/17 01:16; Admin Dose 650 MG; Start 03/08/17 at 23:30 Tramadol HCl (Ultram) 50 mg Q6H PRN PO PAIN Last administered on 03/09/17 11:47 ; Admin Dose 50 MG; Start 03/08/17 at 23:30 FIDE CORDOVA NP Mar 09, 2017 14:19
[2017-03-09] MEDS ORDERED: INDOMETHACIN 50 MG SUPP PR SCH (14:30)
--- NOTE | 2017-03-09 14:56 | PN ---
Date/Time of Note Date/Time of Note DATE: 03/09/17 TIME: 14:53 Assessment/Plan VTE Prophylaxis VTE Prophylaxis Intervention: SCD's Lines/Catheters IV Catheter Type (from Nrsg): Peripheral IV Urinary Cath still in place: Yes Reason Cath still needed: urinary retention Assessment/Plan Chief Complaint/Hosp Course Assessment/Plan: 86 yo M with pmhx gout, HTN, CKD admitted for abd pain found to have gallstone pancreatitis sp lap ashleigh by gen surg, now with bile leak 1. gallstone pancreatitis: sp lap ashleigh POD # 4, again, now with bile leak (see HIDA scan results below) - continue abx, pain meds, IVFs as per gen surg - f/u GI and surg rec's, for ERCP in 24 hrs. 2. HTN: stable - cont home meds 3. gout flare: slowly improving - cont colchicine course (started 6.3). - Also cont home allopurinol 4. diet: as per gen surg 5. DVT prophx: SCDs 6. dispo: as per gen surg, PT consult Problems: Subjective 24 Hr Interval Summary Free Text/Dictation Pt had HIDA scan, + bile leak. Awaiting ERCP now in 24 hrs, no fevers. Exam/Review of Systems Vital Signs Vitals Vital Signs Date Time Temp Pulse Resp B/P Pulse Ox O2 Delivery O2 Flow Rate FiO2 03/09/17 08:44 97.8 92 18 137/74 97 03/09/17 08:30 Nasal Cannula 3.0 03/05/17 17:07 100 Intake and Output 03/08/17 03/08/17 03/09/17 14:59 22:59 06:59 Intake Total 100 ml 1400 ml 1400 ml Output Total 1485 ml 1830 ml Balance 100 ml -85 ml -430 ml Exam Constitutional: alert, oriented, sleeping presently Head: atraumatic, normocephalic Eyes: EOMI, PERRL, nl conjunctiva, nl lids, nl sclera ENMT: nl external ears & nose, nl lips & teeth, nl nasal mucosa & septum Neck: non-tender, supple Respiratory: clear to auscultation, normal air movement Cardiovascular: nl pulses, regular rate and rhythm Gastrointestinal: bowel sounds, hepatomegaly, soft, tender (Mild tenderness near incision sites), No ascites, No distended, No mass, + drain in place Musculoskeletal: nl extremities to inspection Extremities: normal pulses Results Result Diagram: 03/09/17 0437 03/08/17 0431 Results 24 hrs Laboratory Tests Test 03/09/17 04:37 White Blood Count 10.7 Red Blood Count 3.31 L Hemoglobin 9.5 L Hematocrit 29.1 L Mean Corpuscular Volume 87.9 Mean Corpuscular Hemoglobin 28.7 L Mean Corpuscular Hemoglobin Concent 32.6 Red Cell Distribution Width 15.8 H Platelet Count 515 H Mean Platelet Volume 9.8 Neutrophils % 67.2 Lymphocytes % 20.6 Monocytes % 7.7 Eosinophils % 3.4 Basophils % 0.4 Nucleated Red Blood Cells % 0.0 Neutrophils # 7.2 Lymphocytes # 2.2 Monocytes # 0.8 Eosinophils # 0.4 Basophils # 0.0 Nucleated Red Blood Cells # 0.0 Total Bilirubin 0.2 Direct Bilirubin 0.00 Indirect Bilirubin 0.2 Aspartate Amino Transf (AST/SGOT) 26 Alanine Aminotransferase (ALT/SGPT) 35 Alkaline Phosphatase 97 Total Protein 5.0 L Albumin 2.6 L Medications Medications Current Medications Ondansetron HCl (Zofran Inj) 4 mg Q6H PRN IV N/V Last administered on 03/04/17 09:39; Admin Dose 4 MG; Start 03/01/17 at 08:00 Allopurinol (Zyloprim) 100 mg BID PO Last administered on 03/09/17 08:50; Admin Dose 100 MG; Start 03/01/17 at 21:00 Enalapril Maleate (Vasotec) 10 mg DAILY PO Last administered on 03/09/17 08:51 ; Admin Dose 10 MG; Start 03/02/17 at 09:00 Metoprolol Tartrate (Lopressor) 25 mg DAILY PO Last administered on 03/09/17 08 :51; Admin Dose 25 MG; Start 03/02/17 at 09:00 Pantoprazole 40 mg 40 mg BID@06,18 IV Last administered on 03/09/17 05:09; Admin Dose 40 MG; Start 03/04/17 at 18:00 Potassium Chloride/Dextrose/ Sod Cl 1,000 ml @ 80 mls/hr [id number] IV Last administered on 03/09/17 08:50; Admin Dose 80 MLS/HR; Start 03/04/17 at 22:30 Piperacillin Sod/ Tazobactam Sod (Zosyn 3.375gm/ 100 ml (Pmx)) 100 ml @ 200 mls /hr Q8 IVPB Last administered on 03/09/17 13:28; Admin Dose 200 MLS/HR; Start 03/05/17 at 11:30 Colchicine (Colchicine) 0.6 mg DAILY PO Last administered on 03/09/17 08:50; Admin Dose 0.6 MG; Start 03/06/17 at 15:30; Stop 03/12/17 at 15:29 Morphine Sulfate (morphine) 2 mg Q3H PRN IV pain Last administered on 03/08/17 20:52; Admin Dose 2 MG; Start 03/08/17 at 18:00 Acetaminophen/ Hydrocodone Bitart ([place] (5/325)) 1 tab Q4H PRN PO PAIN LEVEL 7 -10 Last administered on 03/09/17 13:29; Admin Dose 1 TAB; Start 03/08/17 at 15: 30 Acetaminophen (Tylenol Tab) 650 mg Q6H PRN PO PAIN AND OR ELEVATED TEMP Last administered on 03/09/17 01:16; Admin Dose 650 MG; Start 03/08/17 at 23:30 Tramadol HCl (Ultram) 50 mg Q6H PRN PO PAIN Last administered on 03/09/17 11:47 ; Admin Dose 50 MG; Start 03/08/17 at 23:30 Indomethacin (Indocin Supp) 100 mg ONCE [place] ; Start 03/09/17 at 14:30; Stop at 14:29 Procedures Procedures HIDA scan (03/08/17): IMPRESSION: Radiopharmaceutical activity within the percutaneous drainage catheter for this patient who has undergone cholecystectomy since the prior MRI of 03/01/2017 confirms the clinical suspicion of a bile leak without activity seen in the small bowel or evidence for a biloma. MINA CALI Mar 09, 2017 14:56
[2017-03-09] MEDS: morphine 4 MG/ML VIAL IV PRN (15:16)
--- NOTE | 2017-03-09 18:05 | CONS ---
Date/Time of Note Date/Time of Note DATE: 03/09/17 TIME: 18:04 Assessment/Plan Assessment/Plan Chief Complaint/Hosp Course Anemia, likely secondary to iron deficiency, with a history of gastrointestinal bleed in the past requiring blood transfusion. Hemoglobin stable. Leukocytosis, likely secondary to gallstone pancreatitis THROMBOCYTOSIS- REACTIVE CONT TO MONITOR Gallstone pancreatitis. Abdominal pain, most likely secondary to above.. Chronic kidney disease. History of gout. History of hypertension, blood pressure within acceptable range. 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 Problems: Consultation Date/Type/Reason Admit Date/Time March 01, 2017 at 05:46 Initial Consult Date 03/01/17 Type of Consultation: [facility] Referring Provider: MAGNOLIA PIERRE MD 24 HR Interval Summary Free Text/Dictation Pt had HIDA scan, + bile leak. Awaiting ERCP now in 24 hrs, no fevers. count stable Exam/Review of Systems Vital Signs Vitals Vital Signs Date Time Temp Pulse Resp B/P Pulse Ox O2 Delivery O2 Flow Rate FiO2 03/09/17 15:30 90 22 99 3.0 03/09/17 08:44 97.8 137/74 03/09/17 08:30 Nasal Cannula 03/05/17 17:07 100 Intake and Output 03/08/17 03/08/17 03/09/17 15:00 23:00 07:00 Intake Total 100 ml 1400 ml 1400 ml Output Total 1485 ml 1830 ml Balance 100 ml -85 ml -430 ml Exam Exam Constitutional: alert, oriented, sleeping presently Head: atraumatic, normocephalic Eyes: EOMI, PERRL, nl conjunctiva, nl lids, nl sclera ENMT: nl external ears & nose, nl lips & teeth, nl nasal mucosa & septum Neck: non-tender, supple Respiratory: clear to auscultation, normal air movement Cardiovascular: nl pulses, regular rate and rhythm Gastrointestinal: bowel sounds, hepatomegaly, soft, tender (Mild tenderness near incision sites), No ascites, No distended, No mass, + drain in place Musculoskeletal: nl extremities to inspection Extremities: normal pulses Results Result Diagram: 03/09/17 0437 03/08/17 0431 Results 24 hrs Laboratory Tests Test 03/09/17 04:37 White Blood Count 10.7 Red Blood Count 3.31 L Hemoglobin 9.5 L Hematocrit 29.1 L Mean Corpuscular Volume 87.9 Mean Corpuscular Hemoglobin 28.7 L Mean Corpuscular Hemoglobin Concent 32.6 Red Cell Distribution Width 15.8 H Platelet Count 515 H Mean Platelet Volume 9.8 Neutrophils % 67.2 Lymphocytes % 20.6 Monocytes % 7.7 Eosinophils % 3.4 Basophils % 0.4 Nucleated Red Blood Cells % 0.0 Neutrophils # 7.2 Lymphocytes # 2.2 Monocytes # 0.8 Eosinophils # 0.4 Basophils # 0.0 Nucleated Red Blood Cells # 0.0 Total Bilirubin 0.2 Direct Bilirubin 0.00 Indirect Bilirubin 0.2 Aspartate Amino Transf (AST/SGOT) 26 Alanine Aminotransferase (ALT/SGPT) 35 Alkaline Phosphatase 97 Total Protein 5.0 L Albumin 2.6 L Medications Medications Current Medications Ondansetron HCl (Zofran Inj) 4 mg Q6H PRN IV N/V Last administered on 03/04/17 09:39; Admin Dose 4 MG; Start 03/01/17 at 08:00 Allopurinol (Zyloprim) 100 mg BID PO Last administered on 03/09/17 08:50; Admin Dose 100 MG; Start 03/01/17 at 21:00 Enalapril Maleate (Vasotec) 10 mg DAILY PO Last administered on 03/09/17 08:51 ; Admin Dose 10 MG; Start 03/02/17 at 09:00 Metoprolol Tartrate (Lopressor) 25 mg DAILY PO Last administered on 03/09/17 08 :51; Admin Dose 25 MG; Start 03/02/17 at 09:00 Pantoprazole 40 mg 40 mg BID@06,18 IV Last administered on 03/09/17 17:03; Admin Dose 40 MG; Start 03/04/17 at 18:00 Potassium Chloride/Dextrose/ Sod Cl 1,000 ml @ 80 mls/hr [id number] IV Last administered on 03/09/17 08:50; Admin Dose 80 MLS/HR; Start 03/04/17 at 22:30 Piperacillin Sod/ Tazobactam Sod (Zosyn 3.375gm/ 100 ml (Pmx)) 100 ml @ 200 mls /hr Q8 IVPB Last administered on 03/09/17 13:28; Admin Dose 200 MLS/HR; Start 03/05/17 at 11:30 Colchicine (Colchicine) 0.6 mg DAILY PO Last administered on 03/09/17 08:50; Admin Dose 0.6 MG; Start 03/06/17 at 15:30; Stop 03/12/17 at 15:29 Morphine Sulfate (morphine) 2 mg Q3H PRN IV pain Last administered on 03/09/17 15:16; Admin Dose 2 MG; Start 03/08/17 at 18:00 Acetaminophen/ Hydrocodone Bitart ([place] (5/325)) 1 tab Q4H PRN PO PAIN LEVEL 7 -10 Last administered on 03/09/17 13:29; Admin Dose 1 TAB; Start 03/08/17 at 15: 30 Acetaminophen (Tylenol Tab) 650 mg Q6H PRN PO PAIN AND OR ELEVATED TEMP Last administered on 03/09/17 01:16; Admin Dose 650 MG; Start 03/08/17 at 23:30 Tramadol HCl (Ultram) 50 mg Q6H PRN PO PAIN Last administered on 03/09/17 11:47 ; Admin Dose 50 MG; Start 03/08/17 at 23:30 Indomethacin (Indocin Supp) 100 mg ONCE [place] ; Start 03/09/17 at 14:30; Stop at 14:29 NARAYAN FERNÁNDEZ MD Mar 09, 2017 18:05
[2017-03-09 19:42] VITALS: BP 139/64; RESP 19
[2017-03-10] VITALS (29 sets, daily range): BP systolic 90–191; BP diastolic 58–120; PULSE 92–141; RESP 16–48
[2017-03-10] MEDS: morphine 4 MG/ML VIAL IV PRN ×2 (04:40→10:42)
[2017-03-10] MEDS: PIPER-TAZO 3.375 GM IV (PMX) 100 ML IVPB SCH ×3 (04:52→23:36)
[2017-03-10] MEDS: PANTOPRAZOLE 40 MG INJ IV SCH ×2 (04:52→17:47)
[2017-03-10 05:22] LABS: ADD SCAN DIFF NO
[2017-03-10 05:29] LABS: BASOPHILS % 0.5 % (0.0-2.0); EOSINOPHILS # 0.4 10^3/ul (0.0-0.5); EOSINOPHILS % 4.8 % (0.0-7.0); HEMATOCRIT 28.1 % (42.0-52.0); HEMOGLOBIN 8.9 g/dl (14.0-18.0); LYMPHOCYTES # 1.7 10^3/ul (0.8-2.9); LYMPHOCYTES % 19.7 % (15.0-51.0); MEAN CORPUSCULAR HEMOGLOBIN 28.2 pg (29.0-33.0); MEAN CORPUSCULAR HGB CONC 31.7 g/dl (32.0-37.0); MEAN CORPUSCULAR VOLUME 88.9 fl (82.0-101.0); MEAN PLATELET VOLUME 9.8 fl (7.4-10.4); MONOCYTE # 0.8 10^3/ul (0.3-0.9); MONOCYTES % 8.8 % (0.0-11.0); NEUTROPHIL # 5.8 10^3/ul (1.6-7.5); NEUTROPHILS % 65.4 % (39.0-77.0); PLATELET COUNT 489 10^3/UL (140-415); RED BLOOD COUNT 3.16 10^6/ul (4.70-6.10); RED CELL DISTRIBUTION WIDTH 15.9 % (11.5-14.5); WHITE BLOOD COUNT 8.8 10^3/ul (4.8-10.8)
[2017-03-10] MEDS ORDERED: CEFAZOLIN 1 GM INJ ONE (07:00)
[2017-03-10] MEDS: COLCHICINE 0.6 MG TAB PO SCH (08:26)
[2017-03-10] MEDS: ENALAPRIL 10 MG TAB PO SCH (08:27)
[2017-03-10] MEDS: METOPROLOL 25 MG TAB PO SCH (08:27)
[2017-03-10] MEDS: ALLOPURINOL 100 MG TAB PO SCH ×2 (08:27→21:00)
[2017-03-10] MEDS: D5W-0.45 NACL + KCL 20 MEQ 1,000 ML IV SCH (10:43)
--- NOTE | 2017-03-10 11:30 | PN ---
Date/Time of Note Date/Time of Note DATE: 03/09/17 TIME: 11:26 Assessment/Plan Lines/Catheters IV Catheter Type (from Nrs): Peripheral IV Holland in Place (from Nrs): Yes Assessment/Plan Chief Complaint/Hosp Course 1. Abdominal pain secondary to gallstone pancreatitis & cholecystitis s/p 3 port lap ashleigh. HIDA noted. Bile leak ? source -ercp pending -abx -drain -pain control -labs 2. BMI 30 -Nutrition optimization encouraged -Exercise as possible encouraged 3. Anemia, likely secondary to iron deficiency. -Monitor 4. Leukocytosis, likely secondary to above. Resolved -as above 5. Acute on Chronic kidney disease. -Judicious fluid management -Avoid nephrotoxic agents 6. Gout. -Medical management 7. Hypertension -Diet and medication control -Weight optimization encouraged Thank you Late entry 03/09 Problems: Subjective 24 Hr Interval Summary s/p 3 port lap ashleigh, liver bx, drain 03/05. Greenish discoloration in [place]. Min pain. No fevers or chills. No nausea vomiting. No chest pain or shortness of breath. No cough. No seizure. No blood per mouth or rectum. No dysuria. ERCP today. Exam/Review of Systems Vital Signs Vitals Vital Signs Date Time Temp Pulse Resp B/P Pulse Ox O2 Delivery O2 Flow Rate FiO2 03/10/17 08:00 Nasal Cannula 3.0 03/10/17 07:31 98.0 90 18 164/75 97 Intake and Output 03/09/17 03/09/17 03/10/17 15:00 23:00 07:00 Intake Total 380 ml 1700 ml 1090 ml Output Total 2250 ml 1700 ml Balance 380 ml -550 ml -610 ml Exam Free Text/Dictation Constitutional: alert, obese, No distress Psych: nl mood/affect, No anxiety Head: atraumatic, normocephalic Eyes: EOMI, PERRL, nl conjunctiva, No icteric ENMT: mucosa pink and moist, nl external ears & nose Neck: non-tender, No jvd Respiratory: normal air movement, No congested cough, No labored breathing Cardiovascular: edema (Minimal), regular rate and rhythm Gastrointestinal: soft, min tender, drain No distended, No rebound or guarding Musculoskeletal: nl extremities to inspection, No joint tenderness Extremities: normal pulses, No calf tenderness, No cyanosis Neurological: nl mental status, nl speech, No nl strength Skin: No diaphoresis, No rash or lesions Lymph: nl lymph nodes Results Result Diagram: 03/10/17 0412 03/08/17 0431 KAREN LASSITER MD Mar 10, 2017 11:30
--- NOTE | 2017-03-10 11:31 | PN ---
Date/Time of Note Date/Time of Note DATE: 03/10/17 TIME: 11:30 Assessment/Plan Lines/Catheters IV Catheter Type (from Nrs): Peripheral IV Holland in Place (from Nrs): Yes Assessment/Plan Chief Complaint/Hosp Course 1. Abdominal pain secondary to gallstone pancreatitis & cholecystitis s/p 3 port lap ashleigh. HIDA noted. Bile leak ? source -ercp pending -abx -drain -pain control -labs 2. BMI 30 -Nutrition optimization encouraged -Exercise as possible encouraged 3. Anemia, likely secondary to iron deficiency. -Monitor 4. Leukocytosis, likely secondary to above. Resolved -as above 5. Acute on Chronic kidney disease. -Judicious fluid management -Avoid nephrotoxic agents 6. Gout. -Medical management 7. Hypertension -Diet and medication control -Weight optimization encouraged Thank you Problems: Subjective 24 Hr Interval Summary HIDA noted with leak. s/p 3 port lap ashleigh, liver bx, drain 03/05. Greenish discoloration in [place]. Min pain. No fevers or chills. No nausea vomiting. No chest pain or shortness of breath. No cough. No seizure. No blood per mouth or rectum. No dysuria. ERCP today. Exam/Review of Systems Vital Signs Vitals Vital Signs Date Time Temp Pulse Resp B/P Pulse Ox O2 Delivery O2 Flow Rate FiO2 03/10/17 08:00 Nasal Cannula 3.0 03/10/17 07:31 98.0 90 18 164/75 97 Intake and Output 03/09/17 03/09/17 03/10/17 15:00 23:00 07:00 Intake Total 380 ml 1700 ml 1090 ml Output Total 2250 ml 1700 ml Balance 380 ml -550 ml -610 ml Exam Free Text/Dictation Constitutional: alert, obese, No distress Psych: nl mood/affect, No anxiety Head: atraumatic, normocephalic Eyes: EOMI, PERRL, nl conjunctiva, No icteric ENMT: mucosa pink and moist, nl external ears & nose Neck: non-tender, No jvd Respiratory: normal air movement, No congested cough, No labored breathing Cardiovascular: edema (Minimal), regular rate and rhythm Gastrointestinal: soft, min tender, drain No distended, No rebound or guarding Musculoskeletal: nl extremities to inspection, No joint tenderness Extremities: normal pulses, No calf tenderness, No cyanosis Neurological: nl mental status, nl speech, No nl strength Skin: No diaphoresis, No rash or lesions Lymph: nl lymph nodes Results Result Diagram: 03/10/17 0412 03/08/17 0431 KAREN LASSITER MD Mar 10, 2017 11:31
--- NOTE | 2017-03-10 14:33 | PN ---
Date/Time of Note Date/Time of Note DATE: 03/10/17 TIME: 14:30 Assessment/Plan VTE Prophylaxis VTE Prophylaxis Intervention: SCD's Lines/Catheters IV Catheter Type (from Nrsg): Peripheral IV Urinary Cath still in place: Yes Reason Cath still needed: urinary retention Assessment/Plan Chief Complaint/Hosp Course Assessment/Plan: 86 yo M with pmhx gout, HTN, CKD admitted for abd pain found to have gallstone pancreatitis sp lap ashleigh by gen surg, now with bile leak 1. gallstone pancreatitis: sp lap ashleigh POD # 5, again, now with bile leak (see HIDA scan results below) - continue abx, pain meds, IVFs as per gen surg - f/u GI and surg rec's, for ERCP later today - f/u post procedure rec's 2. HTN: stable - cont home meds 3. gout flare: slowly improving - cont colchicine course (started 6.3). - Also cont home allopurinol 4. diet: as per gen surg 5. DVT prophx: SCDs 6. dispo: as per gen surg, PT consult Problems: Subjective 24 Hr Interval Summary Free Text/Dictation Pt awaiting ERCP, still with + bile leak, otherwise no acute events overnight. Exam/Review of Systems Vital Signs Vitals Vital Signs Date Time Temp Pulse Resp B/P Pulse Ox O2 Delivery O2 Flow Rate FiO2 03/10/17 11:39 98.0 80 18 139/75 97 03/10/17 08:00 Nasal Cannula 3.0 Intake and Output 03/09/17 03/09/17 03/10/17 15:00 23:00 07:00 Intake Total 380 ml 1700 ml 1090 ml Output Total 2250 ml 1700 ml Balance 380 ml -550 ml -610 ml Exam Constitutional: alert, oriented, NAD Head: atraumatic, normocephalic Eyes: EOMI, PERRL, nl conjunctiva, nl lids, nl sclera ENMT: nl external ears & nose, nl lips & teeth, nl nasal mucosa & septum Neck: non-tender, supple Respiratory: clear to auscultation, normal air movement Cardiovascular: nl pulses, regular rate and rhythm Gastrointestinal: bowel sounds, hepatomegaly, soft, tender (Mild tenderness near incision sites), No ascites, No distended, No mass, + drain in place Musculoskeletal: nl extremities to inspection Extremities: normal pulses Results Result Diagram: 03/10/17 0412 03/08/17 0431 Results 24 hrs Laboratory Tests Test 03/10/17 04:12 White Blood Count 8.8 Red Blood Count 3.16 L Hemoglobin 8.9 L Hematocrit 28.1 L Mean Corpuscular Volume 88.9 Mean Corpuscular Hemoglobin 28.2 L Mean Corpuscular Hemoglobin Concent 31.7 L Red Cell Distribution Width 15.9 H Platelet Count 489 H Mean Platelet Volume 9.8 Neutrophils % 65.4 Lymphocytes % 19.7 Monocytes % 8.8 Eosinophils % 4.8 Basophils % 0.5 Nucleated Red Blood Cells % 0.0 Neutrophils # 5.8 Lymphocytes # 1.7 Monocytes # 0.8 Eosinophils # 0.4 Basophils # 0.0 Nucleated Red Blood Cells # 0.0 Medications Medications Current Medications Ondansetron HCl (Zofran Inj) 4 mg Q6H PRN IV N/V Last administered on 03/04/17 09:39; Admin Dose 4 MG; Start 03/01/17 at 08:00 Allopurinol (Zyloprim) 100 mg BID PO Last administered on 03/10/17 08:27; Admin Dose 100 MG; Start 03/01/17 at 21:00 Enalapril Maleate (Vasotec) 10 mg DAILY PO Last administered on 03/10/17 08:27 ; Admin Dose 10 MG; Start 03/02/17 at 09:00 Metoprolol Tartrate (Lopressor) 25 mg DAILY PO Last administered on 03/10/17 08 :27; Admin Dose 25 MG; Start 03/02/17 at 09:00 Pantoprazole 40 mg 40 mg BID@06,18 IV Last administered on 03/10/17 04:52; Admin Dose 40 MG; Start 03/04/17 at 18:00 Potassium Chloride/Dextrose/ Sod Cl 1,000 ml @ 80 mls/hr [id number] IV Last administered on 03/10/17 10:43; Admin Dose 80 MLS/HR; Start 03/04/17 at 22:30 Piperacillin Sod/ Tazobactam Sod (Zosyn 3.375gm/ 100 ml (Pmx)) 100 ml @ 200 mls /hr Q8 IVPB Last administered on 03/10/17 13:36; Admin Dose 200 MLS/HR; Start 03/05/17 at 11:30 Colchicine (Colchicine) 0.6 mg DAILY PO Last administered on 03/10/17 08:26; Admin Dose 0.6 MG; Start 03/06/17 at 15:30; Stop 03/12/17 at 15:29 Morphine Sulfate (morphine) 2 mg Q3H PRN IV pain Last administered on 03/10/17 10:42; Admin Dose 2 MG; Start 03/08/17 at 18:00 Acetaminophen/ Hydrocodone Bitart ([place] (5/325)) 1 tab Q4H PRN PO PAIN LEVEL 7 -10 Last administered on 03/09/17 19:15; Admin Dose 1 TAB; Start 03/08/17 at 15: 30 Acetaminophen (Tylenol Tab) 650 mg Q6H PRN PO PAIN AND OR ELEVATED TEMP Last administered on 03/09/17 01:16; Admin Dose 650 MG; Start 03/08/17 at 23:30 Tramadol HCl (Ultram) 50 mg Q6H PRN PO PAIN Last administered on 03/09/17 11:47 ; Admin Dose 50 MG; Start 03/08/17 at 23:30 MINA CALI Mar 10, 2017 14:33
--- NOTE | 2017-03-10 19:19 | HPN ---
Date/Time of Note Date/Time of Note DATE: 03/10/17 TIME: 19:18 Interval H&P Admission Note Pt. seen H&P reviewed: No system changes CALVIN THAKUR MD Mar 10, 2017 19:19
[2017-03-10] MEDS ORDERED: MIDAZOLAM 1 MG/ML 2 ML INJ ONE (19:33)
[2017-03-10] MEDS ORDERED: FENTAnyl 50 MCG/ML VIAL ONE (19:33)
[2017-03-10] MEDS ORDERED: IOHEXOL 300MG/ML 30 ML BTL ONE (19:36)
[2017-03-10] MEDS ORDERED: GLYCOPYRROLATE 0.4 MG INJ ONE (20:20)
[2017-03-10] MEDS ORDERED: ETOMIDATE 20 MG INJ ONE (20:20)
[2017-03-10] MEDS ORDERED: LIDOCAINE 2% (SDV) 5 ML INJ ONE (20:20)
[2017-03-10] MEDS ORDERED: ONDANSETRON 4 MG INJ ONE (20:21)
[2017-03-10] MEDS ORDERED: ROCURONIUM 50 MG INJ ONE (20:21)
[2017-03-10] MEDS ORDERED: NEOSTIGMINE 3 MG/3 ML SYRINGE ONE (20:21)
[2017-03-10] MEDS ORDERED: DIPHENHYDRAMINE 50 MG INJ IV PRN (20:30)
[2017-03-10] MEDS ORDERED: hydrALAzine 20 MG INJ IV PRN (20:30)
[2017-03-10] MEDS ORDERED: LABETALOL HCL 20MG INJ IV PRN (20:30)
[2017-03-10] MEDS ORDERED: FENTAnyl 50 MCG/ML VIAL IV PRN (20:30)
[2017-03-10] MEDS ORDERED: EPHEDrine SULFATE 50 MG/5 ML SYG IV PRN (20:30)
[2017-03-10] MEDS ORDERED: MEPERIDINE 25 MG INJ IV PRN (20:30)
[2017-03-10] MEDS ORDERED: ONDANSETRON 4 MG INJ IV PRN (20:30)
[2017-03-10] MEDS ORDERED: ALBUTEROL 0.5% (NEB) 2.5 MG/0.5 ML AMP ONE (20:32)
[2017-03-10] MEDS: SUCRALFATE (100 MG/ML) 10ML CUP PO SCH (21:00)
--- NOTE | 2017-03-10 21:52 | CONS ---
Date/Time of Note Date/Time of Note DATE: 03/10/17 TIME: 21:52 Assessment/Plan Assessment/Plan Chief Complaint/Hosp Course Anemia, likely secondary to iron deficiency, with a history of gastrointestinal bleed in the past requiring blood transfusion. Hemoglobin stable. Leukocytosis, likely secondary to gallstone pancreatitis THROMBOCYTOSIS- REACTIVE CONT TO MONITOR Gallstone pancreatitis. Abdominal pain, most likely secondary to above.. Chronic kidney disease. History of gout. History of hypertension, blood pressure within acceptable range. 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 Problems: Consultation Date/Type/Reason Admit Date/Time March 01, 2017 at 05:46 Initial Consult Date 03/01/17 Type of Consultation: HEMEON Referring Provider: MAGNOLIA PIERRE MD 24 HR Interval Summary Free Text/Dictation + bile leak no bleeding Exam/Review of Systems Vital Signs Vitals Vital Signs Date Time Temp Pulse Resp B/P Pulse Ox O2 Delivery O2 Flow Rate FiO2 03/10/17 21:37 107 20 99/65 94 BIPAP 03/10/17 21:26 40 03/10/17 21:20 8.0 03/10/17 20:30 98.2 Intake and Output 03/09/17 03/09/17 03/10/17 15:00 23:00 07:00 Intake Total 380 ml 1700 ml 1090 ml Output Total 2250 ml 1700 ml Balance 380 ml -550 ml -610 ml Exam Constitutional: alert, oriented, NAD Head: atraumatic, normocephalic Eyes: EOMI, PERRL, nl conjunctiva, nl lids, nl sclera ENMT: nl external ears & nose, nl lips & teeth, nl nasal mucosa & septum Neck: non-tender, supple Respiratory: + right side wheezing Cardiovascular: nl pulses, regular rate and rhythm Gastrointestinal: bowel sounds, hepatomegaly, soft, tender (Mild tenderness near incision sites), No ascites, No distended, No mass, + drain in place Musculoskeletal: nl extremities to inspection Extremities: normal pulses Results Result Diagram: 03/10/17 0412 03/08/17 0431 Results 24 hrs Laboratory Tests Test 03/10/17 04:12 White Blood Count 8.8 Red Blood Count 3.16 L Hemoglobin 8.9 L Hematocrit 28.1 L Mean Corpuscular Volume 88.9 Mean Corpuscular Hemoglobin 28.2 L Mean Corpuscular Hemoglobin Concent 31.7 L Red Cell Distribution Width 15.9 H Platelet Count 489 H Mean Platelet Volume 9.8 Neutrophils % 65.4 Lymphocytes % 19.7 Monocytes % 8.8 Eosinophils % 4.8 Basophils % 0.5 Nucleated Red Blood Cells % 0.0 Neutrophils # 5.8 Lymphocytes # 1.7 Monocytes # 0.8 Eosinophils # 0.4 Basophils # 0.0 Nucleated Red Blood Cells # 0.0 Medications Medications Current Medications Ondansetron HCl (Zofran Inj) 4 mg Q6H PRN IV N/V Last administered on 03/04/17 09:39; Admin Dose 4 MG; Start 03/01/17 at 08:00 Allopurinol (Zyloprim) 100 mg BID PO Last administered on 03/10/17 08:27; Admin Dose 100 MG; Start 03/01/17 at 21:00 Enalapril Maleate (Vasotec) 10 mg DAILY PO Last administered on 03/10/17 08:27 ; Admin Dose 10 MG; Start 03/02/17 at 09:00 Metoprolol Tartrate (Lopressor) 25 mg DAILY PO Last administered on 03/10/17 08 :27; Admin Dose 25 MG; Start 03/02/17 at 09:00 Pantoprazole 40 mg 40 mg BID@06,18 IV Last administered on 03/10/17 04:52; Admin Dose 40 MG; Start 03/04/17 at 18:00 Potassium Chloride/Dextrose/ Sod Cl 1,000 ml @ 80 mls/hr [id number] IV Last administered on 03/10/17 10:43; Admin Dose 80 MLS/HR; Start 03/04/17 at 22:30 Piperacillin Sod/ Tazobactam Sod (Zosyn 3.375gm/ 100 ml (Pmx)) 100 ml @ 200 mls /hr Q8 IVPB Last administered on 03/10/17 13:36; Admin Dose 200 MLS/HR; Start 03/05/17 at 11:30 Colchicine (Colchicine) 0.6 mg DAILY PO Last administered on 03/10/17 08:26; Admin Dose 0.6 MG; Start 03/06/17 at 15:30; Stop 03/12/17 at 15:29 Morphine Sulfate (morphine) 2 mg Q3H PRN IV pain Last administered on 03/10/17 10:42; Admin Dose 2 MG; Start 03/08/17 at 18:00 Acetaminophen/ Hydrocodone Bitart ([place] (5/325)) 1 tab Q4H PRN PO PAIN LEVEL 7 -10 Last administered on 03/09/17 19:15; Admin Dose 1 TAB; Start 03/08/17 at 15: 30 Acetaminophen (Tylenol Tab) 650 mg Q6H PRN PO PAIN AND OR ELEVATED TEMP Last administered on 03/09/17 01:16; Admin Dose 650 MG; Start 03/08/17 at 23:30 Tramadol HCl (Ultram) 50 mg Q6H PRN PO PAIN Last administered on 03/09/17 11:47 ; Admin Dose 50 MG; Start 03/08/17 at 23:30 Sucralfate (Carafate Susp) 1 gm QID PO ; Start 03/10/17 at 21:00 NARAYAN FERNÁNDEZ MD Mar 10, 2017 21:52
[2017-03-11 00:15] VITALS: BP 145/55; PULSE 90; RESP 18
[2017-03-11 01:00] VITALS: BP 132/60; PULSE 88; RESP 18
[2017-03-11 01:04] VITALS: BP 122/60; RESP 18
[2017-03-11 03:00] VITALS: BP 119/59; PULSE 94; RESP 17
--- NOTE | 2017-03-11 04:06 | GILP ---
DATE OF PROCEDURE: PROCEDURE: Endoscopic retrograde cholangiopancreatography with sphincterotomy and stent placement. PREMEDICATION: General anesthesia by anesthesiologist, Dr. Cage. SURGEON: Jenifer Edwards MD INSTRUMENT USED: Olympus side viewing panendoscope. TECHNIQUE: After informed consent, with the patient/relatives understanding the procedure, its indic ations, potential risks and complications, including but not limited to: allergic reaction, bleeding , perforation or infection, and after all pertinent questions were answered to the patient's satisfa ction, the patient/relatives signed witnessed informed consent. Following this, premedication was administered slowly IV push under careful cardiovascular and respi ratory monitoring with pulse oximetry, automatic blood pressure and radiation monitor. Once the sedative effect was achieved the patient was place in the prone position in the radiology s pecial procedures suite; the side viewing panendoscope was introduced and advanced under visual cont rol. FINDINGS: Careful examination of the upper gastrointestinal tract, both on insertion as well as wit hdrawal of the instrument disclosed the following findings: ESOPHAGUS: The mucosa of the entire esophagus appears within normal limits. There is no evidence of esophagitis, varices, neoplasm or stricture. No Hiatal Hernia identified. STOMACH: Upon entrance to the stomach air was insufflated, the gastric warren distended normally. The mucosa of the fundus, body and antrum of the stomach was carefully examined both head-on and on ret roflexion, and shows no abnormalities. There is no evidence of gastritis, ulcers or neoplasm. PYLORUS: Pylorus is slightly deformed and there is evidence of a sizeable at least 1.5 cm active du odenal ulcer with no stigmata of recent bleeding in the duodenal bulb. We advanced the side-viewing panendoscope with no difficulty to the second portion of the duodenum. The ampulla, however, is ve ry, very small and difficult to cannulate was eventually selectively cannulated and we obtained a ch olangiogram that showed a sizable leak in the area of the cystic duct stump. At this point, a stand tony sphincterotomy was performed measuring approximately 6 mm as the ampulla was again extremely sma ll. Following this, we proceeded to introduce a [place] 10, 7 cm stent which resulted in very rapid emptying. Of note, the proximal tip of the stent is proximal to the takeoff of the cystic duct and the common hepatic duct. The patient tolerated the procedure well. IMPRESSION 1. Large duodenal ulcer with no stigmata of recent bleeding. 2. Significant cystic duct leak. 3. Post-endoscopic retrograde sphincterotomy. 4. Post-endoscopic placement of a biliary stent [place] 10, 7 cm stent. PLAN: The patient will be treated with PPI double dose and will be closely monitored. Further amanda mmendation will depend on his clinical course. Removal of stent in 8 weeks is advisable and further recommendation will depend on the patient's clinical course. H. pylori serology will be requested as well. Dictated By: CALVIN TAHKUR MS/ROXANNE Conf#: [id number] DID#: [id number] CC: CALVIN THAKUR;*EndCC*
[2017-03-11] MEDS: D5W-0.45 NACL + KCL 20 MEQ 1,000 ML IV SCH (04:34)
[2017-03-11 05:30] LABS: ADD SCAN DIFF NO
[2017-03-11] MEDS: PANTOPRAZOLE 40 MG INJ IV SCH ×2 (05:54→17:49)
[2017-03-11] MEDS: PIPER-TAZO 3.375 GM IV (PMX) 100 ML IVPB SCH ×3 (05:55→21:54)
[2017-03-11 06:02] LABS: BASOPHIL # 0.1 10^3/ul (0.0-0.1); BASOPHILS % 0.5 % (0.0-2.0); EOSINOPHILS # 0.2 10^3/ul (0.0-0.5); EOSINOPHILS % 2.4 % (0.0-7.0); HEMATOCRIT 28.9 % (42.0-52.0); HEMOGLOBIN 8.9 g/dl (14.0-18.0); LYMPHOCYTES % 20.9 % (15.0-51.0); MEAN CORPUSCULAR HEMOGLOBIN 28.9 pg (29.0-33.0); MEAN CORPUSCULAR HGB CONC 30.8 g/dl (32.0-37.0); MEAN CORPUSCULAR VOLUME 93.8 fl (82.0-101.0); MEAN PLATELET VOLUME 9.9 fl (7.4-10.4); MONOCYTE # 0.7 10^3/ul (0.3-0.9); MONOCYTES % 7.7 % (0.0-11.0); NEUTROPHIL # 6.5 10^3/ul (1.6-7.5); NEUTROPHILS % 67.6 % (39.0-77.0); RED BLOOD COUNT 3.08 10^6/ul (4.70-6.10); RED CELL DISTRIBUTION WIDTH 16.3 % (11.5-14.5); WHITE BLOOD COUNT 9.6 10^3/ul (4.8-10.8)
[2017-03-11 06:10] LABS: CREATININE 1.37 mg/dl (0.61-1.24); POTASSIUM 5.5 mmol/L (3.5-5.1)
[2017-03-11 06:23] LABS: PLATELET COUNT 424 10^3/UL (140-415)
--- NOTE | 2017-03-11 08:35 | RADRPT ---
PROCEDURE: X-ray fluoroscopy guidance CLINICAL INDICATION: Abdominal pain, ERCP, fluoroscopic guidance TECHNIQUE: Fluoroscopic guidance was utilized for an intraoperative procedure. COMPARISON: None available FINDINGS: Fluoroscopic guidance was utilized for and intraoperative procedure. 132 seconds of fluoroscopy time was utilized for the procedure. 3 x-ray images were obtained during the procedure in progress. Rashmi l image demonstrates a common bile duct stent in grossly appropriate location. IMPRESSION: X-ray fluoroscopic guidance utilized for intraoperative procedure. Common bile duct stent in grossly appropriate location. Please see procedure note for details. RPTAT: AA .Ollie Temple MD, Date Time Electronically viewed and signed by .Ollie Temple MD, MD on 03/11/2017 08:35 .P/
[2017-03-11 09:00] VITALS: BP 140/78; RESP 18
[2017-03-11] MEDS: COLCHICINE 0.6 MG TAB PO SCH (09:10)
[2017-03-11] MEDS: SUCRALFATE (100 MG/ML) 10ML CUP PO SCH ×4 (09:10→20:50)
[2017-03-11] MEDS: ALLOPURINOL 100 MG TAB PO SCH ×2 (09:11→20:52)
[2017-03-11] MEDS: ENALAPRIL 10 MG TAB PO SCH (09:11)
[2017-03-11] MEDS: METOPROLOL 25 MG TAB PO SCH (09:11)
--- NOTE | 2017-03-11 12:15 | PN ---
Date/Time of Note Date/Time of Note DATE: 03/11/17 TIME: 12:11 Assessment/Plan VTE Prophylaxis VTE Prophylaxis Intervention: SCD's Lines/Catheters IV Catheter Type (from Nrsg): Peripheral IV Urinary Cath still in place: Yes Reason Cath still needed: urinary retention Assessment/Plan Chief Complaint/Hosp Course Assessment/Plan: 86 yo M with pmhx gout, HTN, CKD admitted for abd pain found to have gallstone pancreatitis sp lap ashleigh by gen surg, now with bile leak 1. gallstone pancreatitis: sp lap ashleigh POD # 6, again, with subsequent bile leak, s/p ERCP yesterday with biliary stent placement yesterday. - continue abx, pain meds, IVFs - f/u GI and surg rec's - f/u post procedure rec's - PPI IV BID 2. HTN: stable - cont home meds 3. gout flare: slowly improving - cont colchicine course (started 6.3). - Also cont home allopurinol 4. diet: as per gen surg 5. DVT prophx: SCDs 6. dispo: as per gen surg, PT consult Problems: Subjective 24 Hr Interval Summary Free Text/Dictation Pt had ERCP yesterday, still with some bile leak, otherwise no acute events overnight. Exam/Review of Systems Vital Signs Vitals Vital Signs Date Time Temp Pulse Resp B/P Pulse Ox O2 Delivery O2 Flow Rate FiO2 03/11/17 09:00 98.1 75 18 140/78 99 03/11/17 03:00 Nasal Cannula 2.0 03/10/17 21:26 40 Intake and Output 03/10/17 03/10/17 03/11/17 15:00 23:00 07:00 Intake Total 740 ml 560 ml 960 ml Output Total 200 ml 1080 ml 1020 ml Balance 540 ml -520 ml -60 ml Exam Constitutional: alert, oriented, NAD Head: atraumatic, normocephalic Eyes: EOMI, PERRL, nl conjunctiva, nl lids, nl sclera ENMT: nl external ears & nose, nl lips & teeth, nl nasal mucosa & septum Neck: non-tender, supple Respiratory: clear to auscultation, normal air movement Cardiovascular: nl pulses, regular rate and rhythm Gastrointestinal: bowel sounds, hepatomegaly, soft, tender (Mild tenderness near incision sites), No ascites, No distended, No mass, + drain in place Musculoskeletal: nl extremities to inspection Extremities: normal pulses Results Result Diagram: 03/11/17 0503 03/11/17 0503 Results 24 hrs Laboratory Tests Test 03/11/17 05:03 White Blood Count 9.6 Red Blood Count 3.08 L Hemoglobin 8.9 L Hematocrit 28.9 L Mean Corpuscular Volume 93.8 Mean Corpuscular Hemoglobin 28.9 L Mean Corpuscular Hemoglobin Concent 30.8 L Red Cell Distribution Width 16.3 H Platelet Count 424 H Mean Platelet Volume 9.9 Neutrophils % 67.6 Lymphocytes % 20.9 Monocytes % 7.7 Eosinophils % 2.4 Basophils % 0.5 Nucleated Red Blood Cells % 0.0 Neutrophils # 6.5 Lymphocytes # 2.0 Monocytes # 0.7 Eosinophils # 0.2 Basophils # 0.1 Nucleated Red Blood Cells # 0.0 Sodium Level 135 Potassium Level 5.5 H Chloride Level 112 H Carbon Dioxide Level 17 L Anion Gap 12 Blood Urea Nitrogen 14 Creatinine 1.37 H Glucose Level 88 Calcium Level 8.0 L Medications Medications Current Medications Ondansetron HCl (Zofran Inj) 4 mg Q6H PRN IV N/V Last administered on 03/04/17 09:39; Admin Dose 4 MG; Start 03/01/17 at 08:00 Allopurinol (Zyloprim) 100 mg BID PO Last administered on 03/11/17 09:11; Admin Dose 100 MG; Start 03/01/17 at 21:00 Enalapril Maleate (Vasotec) 10 mg DAILY PO Last administered on 03/11/17 09:11 ; Admin Dose 10 MG; Start 03/02/17 at 09:00 Metoprolol Tartrate (Lopressor) 25 mg DAILY PO Last administered on 03/11/17 09 :11; Admin Dose 25 MG; Start 03/02/17 at 09:00 Pantoprazole 40 mg 40 mg BID@06,18 IV Last administered on 03/11/17 05:54; Admin Dose 40 MG; Start 03/04/17 at 18:00 Potassium Chloride/Dextrose/ Sod Cl 1,000 ml @ 80 mls/hr [id number] IV Last administered on 03/11/17 04:34; Admin Dose 80 MLS/HR; Start 03/04/17 at 22:30 Piperacillin Sod/ Tazobactam Sod (Zosyn 3.375gm/ 100 ml (Pmx)) 100 ml @ 200 mls /hr Q8 IVPB Last administered on 03/11/17 05:55; Admin Dose 200 MLS/HR; Start 03/05/17 at 11:30 Colchicine (Colchicine) 0.6 mg DAILY PO Last administered on 03/11/17 09:10; Admin Dose 0.6 MG; Start 03/06/17 at 15:30; Stop 03/12/17 at 15:29 Morphine Sulfate (morphine) 2 mg Q3H PRN IV pain Last administered on 03/10/17 10:42; Admin Dose 2 MG; Start 03/08/17 at 18:00 Acetaminophen/ Hydrocodone Bitart ([place] (5/325)) 1 tab Q4H PRN PO PAIN LEVEL 7 -10 Last administered on 03/09/17 19:15; Admin Dose 1 TAB; Start 03/08/17 at 15: 30 Acetaminophen (Tylenol Tab) 650 mg Q6H PRN PO PAIN AND OR ELEVATED TEMP Last administered on 03/09/17 01:16; Admin Dose 650 MG; Start 03/08/17 at 23:30 Tramadol HCl (Ultram) 50 mg Q6H PRN PO PAIN Last administered on 03/09/17 11:47 ; Admin Dose 50 MG; Start 03/08/17 at 23:30 Sucralfate (Carafate Susp) 1 gm QID PO Last administered on 03/11/17 09:10; Admin Dose 1 GM; Start 03/10/17 at 21:00 MINA CALI Mar 11, 2017 12:15
[2017-03-11] MEDS ORDERED: NA POLYST SULFON 15 GM/60 ML BTL PO ONE (12:30)
[2017-03-11] MEDS: SOD CHLORIDE 0.45% 1,000 ML IV SCH (13:32)
--- NOTE | 2017-03-11 15:38 | PN ---
Date/Time of Note Date/Time of Note DATE: 03/11/17 TIME: 15:32 Assessment/Plan VTE Prophylaxis VTE Prophylaxis Intervention: SCD's Lines/Catheters [facility] Peripheral IV Urinary Cath still in place: Yes Reason Cath still needed: urinary retention Assessment/Plan Assessment/Plan Assessment * Bile leak ERCP with placement of biliary stent * S/P laparoscopic cholecystectomy * Duodenal ulcer * correct hyperkalemia Plan * continue present management * case was discussed with DR Burgess Subjective 24 Hr Interval Summary Free Text/Dictation * Course reviewed with RN * patient seen and examined * ERCP . Large duodenal ulcer with no stigmata of recent bleeding. . Significant cystic duct leak. . Post-endoscopic retrograde sphincterotomy. . Post-endoscopic placement of a biliary stent [place] 10, 7 cm stent. * Denies abdominal pain/afebrile * K 5.5 Exam/Review of Systems Vital Signs Vitals Vital Signs Date Time Temp Pulse Resp B/P Pulse Ox O2 Delivery O2 Flow Rate FiO2 03/11/17 09:00 98.1 75 18 140/78 99 03/11/17 03:00 Nasal Cannula 2.0 03/10/17 21:26 40 Intake and Output 03/10/17 03/10/17 03/11/17 15:00 23:00 07:00 Intake Total 740 ml 560 ml 960 ml Output Total 200 ml 1080 ml 1020 ml Balance 540 ml -520 ml -60 ml Exam Constitutional: alert, frail Neck: non-tender, supple Respiratory: clear to auscultation, normal air movement Cardiovascular: nl pulses, regular rate and rhythm Gastrointestinal: bowel sounds, distended, other (edita blackburn drain), soft Extremities: normal pulses Neurological: nl mental status Results Result Diagram: 03/11/17 0503 03/11/17 0503 Results 24 hrs Laboratory Tests Test 03/11/17 05:03 White Blood Count 9.6 Red Blood Count 3.08 L Hemoglobin 8.9 L Hematocrit 28.9 L Mean Corpuscular Volume 93.8 Mean Corpuscular Hemoglobin 28.9 L Mean Corpuscular Hemoglobin Concent 30.8 L Red Cell Distribution Width 16.3 H Platelet Count 424 H Mean Platelet Volume 9.9 Neutrophils % 67.6 Lymphocytes % 20.9 Monocytes % 7.7 Eosinophils % 2.4 Basophils % 0.5 Nucleated Red Blood Cells % 0.0 Neutrophils # 6.5 Lymphocytes # 2.0 Monocytes # 0.7 Eosinophils # 0.2 Basophils # 0.1 Nucleated Red Blood Cells # 0.0 Sodium Level 135 Potassium Level 5.5 H Chloride Level 112 H Carbon Dioxide Level 17 L Anion Gap 12 Blood Urea Nitrogen 14 Creatinine 1.37 H Glucose Level 88 Calcium Level 8.0 L Medications Medications Current Medications Ondansetron HCl (Zofran Inj) 4 mg Q6H PRN IV N/V Last administered on 03/04/17 09:39; Admin Dose 4 MG; Start 03/01/17 at 08:00 Allopurinol (Zyloprim) 100 mg BID PO Last administered on 03/11/17 09:11; Admin Dose 100 MG; Start 03/01/17 at 21:00 Enalapril Maleate (Vasotec) 10 mg DAILY PO Last administered on 03/11/17 09:11 ; Admin Dose 10 MG; Start 03/02/17 at 09:00 Metoprolol Tartrate (Lopressor) 25 mg DAILY PO Last administered on 03/11/17 09 :11; Admin Dose 25 MG; Start 03/02/17 at 09:00 Pantoprazole 40 mg 40 mg BID@06,18 IV Last administered on 03/11/17 05:54; Admin Dose 40 MG; Start 03/04/17 at 18:00 Piperacillin Sod/ Tazobactam Sod (Zosyn 3.375gm/ 100 ml (Pmx)) 100 ml @ 200 mls /hr Q8 IVPB Last administered on 03/11/17 13:33; Admin Dose 200 MLS/HR; Start 03/05/17 at 11:30 Colchicine (Colchicine) 0.6 mg DAILY PO Last administered on 03/11/17 09:10; Admin Dose 0.6 MG; Start 03/06/17 at 15:30; Stop 03/12/17 at 15:29 Morphine Sulfate (morphine) 2 mg Q3H PRN IV pain Last administered on 03/10/17 10:42; Admin Dose 2 MG; Start 03/08/17 at 18:00 Acetaminophen/ Hydrocodone Bitart ([place] (5/325)) 1 tab Q4H PRN PO PAIN LEVEL 7 -10 Last administered on 03/09/17 19:15; Admin Dose 1 TAB; Start 03/08/17 at 15: 30 Acetaminophen (Tylenol Tab) 650 mg Q6H PRN PO PAIN AND OR ELEVATED TEMP Last administered on 03/09/17 01:16; Admin Dose 650 MG; Start 03/08/17 at 23:30 Tramadol HCl (Ultram) 50 mg Q6H PRN PO PAIN Last administered on 03/09/17 11:47 ; Admin Dose 50 MG; Start 03/08/17 at 23:30 Sucralfate 1 gm 1 gm QID PO Last administered on 03/11/17 13:32; Admin Dose 1 GM; Start 03/10/17 at 21:00 Sodium Chloride (1/2 NS) 1,000 ml @ 75 mls/hr [id number] IV Last administered on 03/11/17 13:32; Admin Dose 75 MLS/HR; Start 03/11/17 at 12:30 FIDE CORDOVA NP Mar 11, 2017 15:38
[2017-03-11] MEDS: ACETAMINOPHEN 325 MG TAB PO PRN (17:49)
[2017-03-11 19:21] VITALS: BP 155/77; RESP 19
--- NOTE | 2017-03-11 22:50 | CONS ---
Date/Time of Note Date/Time of Note DATE: 03/11/17 TIME: 22:50 Assessment/Plan Assessment/Plan Chief Complaint/Hosp Course Anemia, likely secondary to iron deficiency, with a history of gastrointestinal bleed in the past requiring blood transfusion. Hemoglobin stable. Leukocytosis, likely secondary to gallstone pancreatitis THROMBOCYTOSIS- REACTIVE CONT TO MONITOR Gallstone pancreatitis. Abdominal pain, most likely secondary to above.. Chronic kidney disease. History of gout. History of hypertension, blood pressure within acceptable range. 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 Problems: Consultation Date/Type/Reason Admit Date/Time March 01, 2017 at 05:46 Initial Consult Date 03/01/17 [facility] of Consultation: [facility] Referring Provider: MAGNOLIA PIERRE MD 24 HR Interval Summary Free Text/Dictation Pt had ERCP yesterday, still with some bile leak, otherwise no acute events overnight. count stable Exam/Review of Systems Vital Signs Vitals Vital Signs Date Time Temp Pulse Resp B/P Pulse Ox O2 Delivery O2 Flow Rate FiO2 03/11/17 19:21 98.3 86 19 155/77 97 03/11/17 03:00 Nasal Cannula 2.0 03/10/17 21:26 40 Intake and Output 03/10/17 03/10/17 03/11/17 15:00 23:00 07:00 Intake Total 740 ml 560 ml 960 ml Output Total 200 ml 1080 ml 1020 ml Balance 540 ml -520 ml -60 ml Exam Constitutional: alert, oriented, NAD Head: atraumatic, normocephalic Eyes: EOMI, PERRL, nl conjunctiva, nl lids, nl sclera ENMT: nl external ears & nose, nl lips & teeth, nl nasal mucosa & septum Neck: non-tender, supple Respiratory: + right side wheezing Cardiovascular: nl pulses, regular rate and rhythm Gastrointestinal: bowel sounds, hepatomegaly, soft, tender (Mild tenderness near incision sites), No ascites, No distended, No mass, + drain in place Musculoskeletal: nl extremities to inspection Extremities: normal pulses Results Result Diagram: 03/11/17 0503 03/11/17 0503 Results 24 hrs Laboratory Tests Test 03/11/17 05:03 White Blood Count 9.6 Red Blood Count 3.08 L Hemoglobin 8.9 L Hematocrit 28.9 L Mean Corpuscular Volume 93.8 Mean Corpuscular Hemoglobin 28.9 L Mean Corpuscular Hemoglobin Concent 30.8 L Red Cell Distribution Width 16.3 H Platelet Count 424 H Mean Platelet Volume 9.9 Neutrophils % 67.6 Lymphocytes % 20.9 Monocytes % 7.7 Eosinophils % 2.4 Basophils % 0.5 Nucleated Red Blood Cells % 0.0 Neutrophils # 6.5 Lymphocytes # 2.0 Monocytes # 0.7 Eosinophils # 0.2 Basophils # 0.1 Nucleated Red Blood Cells # 0.0 Sodium Level 135 Potassium Level 5.5 H Chloride Level 112 H Carbon Dioxide Level 17 L Anion Gap 12 Blood Urea Nitrogen 14 Creatinine 1.37 H Glucose Level 88 Calcium Level 8.0 L Medications Medications Current Medications Ondansetron HCl (Zofran Inj) 4 mg Q6H PRN IV N/V Last administered on 03/04/17 09:39; Admin Dose 4 MG; Start 03/01/17 at 08:00 Allopurinol (Zyloprim) 100 mg BID PO Last administered on 03/11/17 20:52; Admin Dose 100 MG; Start 03/01/17 at 21:00 Enalapril Maleate (Vasotec) 10 mg DAILY PO Last administered on 03/11/17 09:11 ; Admin Dose 10 MG; Start 03/02/17 at 09:00 Metoprolol Tartrate (Lopressor) 25 mg DAILY PO Last administered on 03/11/17 09 :11; Admin Dose 25 MG; Start 03/02/17 at 09:00 Pantoprazole 40 mg 40 mg BID@06,18 IV Last administered on 03/11/17 17:49; Admin Dose 40 MG; Start 03/04/17 at 18:00 Piperacillin Sod/ Tazobactam Sod (Zosyn 3.375gm/ 100 ml (Pmx)) 100 ml @ 200 mls /hr Q8 IVPB Last administered on 03/11/17 21:54; Admin Dose 200 MLS/HR; Start 03/05/17 at 11:30 Colchicine (Colchicine) 0.6 mg DAILY PO Last administered on 03/11/17 09:10; Admin Dose 0.6 MG; Start 03/06/17 at 15:30; Stop 03/12/17 at 15:29 Morphine Sulfate (morphine) 2 mg Q3H PRN IV pain Last administered on 03/10/17 10:42; Admin Dose 2 MG; Start 03/08/17 at 18:00 Acetaminophen/ Hydrocodone Bitart ([place] (5/325)) 1 tab Q4H PRN PO PAIN LEVEL 7 -10 Last administered on 03/09/17 19:15; Admin Dose 1 TAB; Start 03/08/17 at 15: 30 Acetaminophen (Tylenol Tab) 650 mg Q6H PRN PO PAIN AND OR ELEVATED TEMP Last administered on 03/11/17 17:49; Admin Dose 650 MG; Start 03/08/17 at 23:30 Tramadol HCl (Ultram) 50 mg Q6H PRN PO PAIN Last administered on 03/09/17 11:47 ; Admin Dose 50 MG; Start 03/08/17 at 23:30 Sucralfate 1 gm 1 gm QID PO Last administered on 03/11/17 20:50; Admin Dose 1 GM; Start 03/10/17 at 21:00 Sodium Chloride (1/2 NS) 1,000 ml @ 75 mls/hr [id number] IV Last administered on 03/11/17 13:32; Admin Dose 75 MLS/HR; Start 03/11/17 at 12:30 NARAYAN FERNÁNDEZ MD Mar 11, 2017 22:50
[2017-03-12] MEDS: SOD CHLORIDE 0.45% 1,000 ML IV SCH ×3 (01:50→18:39)
[2017-03-12] MEDS: PANTOPRAZOLE 40 MG INJ IV SCH ×2 (05:29→18:35)
[2017-03-12] MEDS: PIPER-TAZO 3.375 GM IV (PMX) 100 ML IVPB SCH ×3 (05:29→21:36)
[2017-03-12 05:30] LABS: ADD SCAN DIFF NO
[2017-03-12 05:38] LABS: BASOPHILS % 0.3 % (0.0-2.0); EOSINOPHILS # 0.4 10^3/ul (0.0-0.5); EOSINOPHILS % 4.7 % (0.0-7.0); HEMOGLOBIN 9.1 g/dl (14.0-18.0); LYMPHOCYTES # 1.5 10^3/ul (0.8-2.9); LYMPHOCYTES % 16.4 % (15.0-51.0); MEAN CORPUSCULAR HEMOGLOBIN 28.5 pg (29.0-33.0); MEAN CORPUSCULAR HGB CONC 32.5 g/dl (32.0-37.0); MEAN CORPUSCULAR VOLUME 87.8 fl (82.0-101.0); MEAN PLATELET VOLUME 9.6 fl (7.4-10.4); MONOCYTE # 0.6 10^3/ul (0.3-0.9); MONOCYTES % 6.2 % (0.0-11.0); NEUTROPHIL # 6.5 10^3/ul (1.6-7.5); NEUTROPHILS % 71.3 % (39.0-77.0); PLATELET COUNT 478 10^3/UL (140-415); RED BLOOD COUNT 3.19 10^6/ul (4.70-6.10); RED CELL DISTRIBUTION WIDTH 15.9 % (11.5-14.5); WHITE BLOOD COUNT 9.2 10^3/ul (4.8-10.8)
[2017-03-12 05:58] LABS: CALCIUM 8.2 mg/dl (8.4-10.2); CREATININE 1.51 mg/dl (0.61-1.24); POTASSIUM 4.3 mmol/L (3.5-5.1)
[2017-03-12] MEDS: morphine 4 MG/ML VIAL IV PRN (06:51)
[2017-03-12 08:33] VITALS: BP 137/69; RESP 20
--- NOTE | 2017-03-12 09:42 | PN ---
Date/Time of Note Date/Time of Note DATE: 03/12/17 TIME: 09:39 Assessment/Plan VTE Prophylaxis VTE Prophylaxis Intervention: SCD's Lines/Catheters IV C[facility]ter Type (from [facility]): Peripheral IV Urinary Cath still in place: No Assessment/Plan Chief Complaint/Hosp Course Problems: Assessment/Plan Assessment * Bile leak ERCP with placement of biliary stent * S/P laparoscopic cholecystectomy * Duodenal ulcer Plan * continue present management Subjective 24 Hr Interval Summary Free Text/Dictation * Course reviewed with RN * Patient seen and examined * Denies abdominal pain Exam/Review of Systems Vital Signs Vitals Vital Signs Date Time Temp Pulse Resp B/P Pulse Ox O2 Delivery O2 Flow Rate FiO2 03/12/17 08:33 97.4 100 20 137/69 97 03/11/17 03:00 Nasal Cannula 2.0 03/10/17 21:26 40 Intake and Output 03/11/17 03/11/17 03/12/17 15:00 23:00 07:00 Intake Total 660 ml 1750 ml 1850 ml Output Total 1850 ml 1040 ml Balance 660 ml -100 ml 810 ml Exam Constitutional: alert Neck: non-tender, supple Respiratory: clear to auscultation, normal air movement Cardiovascular: nl pulses, regular rate and rhythm Gastrointestinal: bowel sounds, non-tender, other (edita blackburn drain), soft Musculoskeletal: nl extremities to inspection Extremities: normal pulses Skin: nl turgor Lymph: nl lymph nodes Results Result Diagram: 03/12/17 0450 03/12/17 0450 Results 24 hrs Laboratory Tests Test 03/12/17 04:50 White Blood Count 9.2 Red Blood Count 3.19 L Hemoglobin 9.1 L Hematocrit 28.0 L Mean Corpuscular Volume 87.8 Mean Corpuscular Hemoglobin 28.5 L Mean Corpuscular Hemoglobin Concent 32.5 Red Cell Distribution Width 15.9 H Platelet Count 478 H Mean Platelet Volume 9.6 Neutrophils % 71.3 Lymphocytes % 16.4 Monocytes % 6.2 Eosinophils % 4.7 Basophils % 0.3 Nucleated Red Blood Cells % 0.0 Neutrophils # 6.5 Lymphocytes # 1.5 Monocytes # 0.6 Eosinophils # 0.4 Basophils # 0.0 Nucleated Red Blood Cells # 0.0 Sodium Level 134 L Potassium Level 4.3 Chloride Level 110 Carbon Dioxide Level 16 L Anion Gap 12 Blood Urea Nitrogen 11 Creatinine 1.51 H Glucose Level 69 #L Calcium Level 8.2 L Medications Medications Current Medications Ondansetron HCl (Zofran Inj) 4 mg Q6H PRN IV N/V Last administered on 03/04/17 09:39; Admin Dose 4 MG; Start 03/01/17 at 08:00 Allopurinol (Zyloprim) 100 mg BID PO Last administered on 03/11/17 20:52; Admin Dose 100 MG; Start 03/01/17 at 21:00 Enalapril Maleate (Vasotec) 10 mg DAILY PO Last administered on 03/11/17 09:11 ; Admin Dose 10 MG; Start 03/02/17 at 09:00 Metoprolol Tartrate (Lopressor) 25 mg DAILY PO Last administered on 03/11/17 09 :11; Admin Dose 25 MG; Start 03/02/17 at 09:00 Pantoprazole 40 mg 40 mg BID@06,18 IV Last administered on 03/12/17 05:29; Admin Dose 40 MG; Start 03/04/17 at 18:00 Piperacillin Sod/ Tazobactam Sod (Zosyn 3.375gm/ 100 ml (Pmx)) 100 ml @ 200 mls /hr Q8 IVPB Last administered on 03/12/17 05:29; Admin Dose 200 MLS/HR; Start 03/05/17 at 11:30 Colchicine (Colchicine) 0.6 mg DAILY PO Last administered on 03/11/17 09:10; Admin Dose 0.6 MG; Start 03/06/17 at 15:30; Stop 03/12/17 at 15:29 Morphine Sulfate (morphine) 2 mg Q3H PRN IV pain Last administered on 03/12/17 06:51; Admin Dose 2 MG; Start 03/08/17 at 18:00 Acetaminophen/ Hydrocodone Bitart ([place] (5/325)) 1 tab Q4H PRN PO PAIN LEVEL 7 -10 Last administered on 03/09/17 19:15; Admin Dose 1 TAB; Start 03/08/17 at 15: 30 Acetaminophen (Tylenol Tab) 650 mg Q6H PRN PO PAIN AND OR ELEVATED TEMP Last administered on 03/11/17 17:49; Admin Dose 650 MG; Start 03/08/17 at 23:30 Tramadol HCl (Ultram) 50 mg Q6H PRN PO PAIN Last administered on 03/09/17 11:47 ; Admin Dose 50 MG; Start 03/08/17 at 23:30 Sucralfate 1 gm 1 gm QID PO Last administered on 03/11/17 20:50; Admin Dose 1 GM; Start 03/10/17 at 21:00 Sodium Chloride (1/2 NS) 1,000 ml @ 75 mls/hr [id number] IV Last administered on 03/12/17 04:20; Admin Dose 75 MLS/HR; Start 03/11/17 at 12:30 CALVIN THAKUR MD Mar 12, 2017 09:42
[2017-03-12] MEDS: COLCHICINE 0.6 MG TAB PO SCH (09:56)
[2017-03-12] MEDS: ALLOPURINOL 100 MG TAB PO SCH ×2 (09:56→21:36)
[2017-03-12] MEDS: ENALAPRIL 10 MG TAB PO SCH (09:57)
[2017-03-12] MEDS: SUCRALFATE (100 MG/ML) 10ML CUP PO SCH ×4 (09:57→21:36)
[2017-03-12] MEDS: METOPROLOL 25 MG TAB PO SCH (09:57)
--- NOTE | 2017-03-12 14:56 | PN ---
Date/Time of Note Date/Time of Note DATE: 03/12/17 TIME: 14:54 Assessment/Plan VTE Prophylaxis VTE Prophylaxis Intervention: SCD's Lines/Catheters IV [facility] [place] Urinary Cath still in place: No Assessment/Plan Chief Complaint/Hosp Course Assessment/Plan: 86 yo M with pmhx gout, HTN, CKD admitted for abd pain found to have gallstone pancreatitis sp lap ashleigh by gen surg, now with bile leak 1. gallstone pancreatitis: sp lap ashleigh POD # 7, again, with subsequent bile leak, s/p ERCP 2 days ago with biliary stent placement. - continue abx, pain meds, IVFs- may switch to PO abx in next 24 hrs - f/u GI and surg rec's - f/u post procedure rec's - PPI IV BID 2. HTN: stable - cont home meds 3. gout flare: slowly improving - cont colchicine course (started 6.3). - Also cont home allopurinol 4. diet: as per gen surg 5. DVT prophx: SCDs 6. dispo: as per gen surg, PT consult Problems: Subjective 24 Hr Interval Summary Free Text/Dictation Still with some output from bile drain. No acute events overnight. Exam/Review of Systems Vital Signs Vitals Vital Signs Date Time Temp Pulse Resp B/P Pulse Ox O2 Delivery O2 Flow Rate FiO2 03/12/17 08:33 97.4 100 20 137/69 97 03/11/17 03:00 Nasal Cannula 2.0 03/10/17 21:26 40 Intake and Output 03/11/17 03/11/17 03/12/17 14:59 22:59 06:59 Intake Total 660 ml 1750 ml 1850 ml Output Total 1850 ml 1040 ml Balance 660 ml -100 ml 810 ml Exam Constitutional: alert, oriented, NAD Head: atraumatic, normocephalic Eyes: EOMI, PERRL, nl conjunctiva, nl lids, nl sclera ENMT: nl external ears & nose, nl lips & teeth, nl nasal mucosa & septum Neck: non-tender, supple Respiratory: clear to auscultation, normal air movement Cardiovascular: nl pulses, regular rate and rhythm Gastrointestinal: bowel sounds, hepatomegaly, soft, tender (Mild tenderness near incision sites), No ascites, No distended, No mass, + drain in place Musculoskeletal: nl extremities to inspection Extremities: normal pulses Results Result Diagram: 03/12/17 0450 03/12/17 0450 Results 24 hrs Laboratory Tests Test 03/12/17 04:50 White Blood Count 9.2 Red Blood Count 3.19 L Hemoglobin 9.1 L Hematocrit 28.0 L Mean Corpuscular Volume 87.8 Mean Corpuscular Hemoglobin 28.5 L Mean Corpuscular Hemoglobin Concent 32.5 Red Cell Distribution Width 15.9 H Platelet Count 478 H Mean Platelet Volume 9.6 Neutrophils % 71.3 Lymphocytes % 16.4 Monocytes % 6.2 Eosinophils % 4.7 Basophils % 0.3 Nucleated Red Blood Cells % 0.0 Neutrophils # 6.5 Lymphocytes # 1.5 Monocytes # 0.6 Eosinophils # 0.4 Basophils # 0.0 Nucleated Red Blood Cells # 0.0 Sodium Level 134 L Potassium Level 4.3 Chloride Level 110 Carbon Dioxide Level 16 L Anion Gap 12 Blood Urea Nitrogen 11 Creatinine 1.51 H Glucose Level 69 #L Calcium Level 8.2 L Medications Medications Current Medications Ondansetron HCl (Zofran Inj) 4 mg Q6H PRN IV N/V Last administered on 03/04/17 09:39; Admin Dose 4 MG; Start 03/01/17 at 08:00 Allopurinol (Zyloprim) 100 mg BID PO Last administered on 03/12/17 09:56; Admin Dose 100 MG; Start 03/01/17 at 21:00 Enalapril Maleate (Vasotec) 10 mg DAILY PO Last administered on 03/12/17 09:57 ; Admin Dose 10 MG; Start 03/02/17 at 09:00 Metoprolol Tartrate (Lopressor) 25 mg DAILY PO Last administered on 03/12/17 09 :57; Admin Dose 25 MG; Start 03/02/17 at 09:00 Pantoprazole 40 mg 40 mg BID@06,18 IV Last administered on 03/12/17 05:29; Admin Dose 40 MG; Start 03/04/17 at 18:00 Piperacillin Sod/ Tazobactam Sod (Zosyn 3.375gm/ 100 ml (Pmx)) 100 ml @ 200 mls /hr Q8 IVPB Last administered on 03/12/17 13:59; Admin Dose 200 MLS/HR; Start 03/05/17 at 11:30 Colchicine (Colchicine) 0.6 mg DAILY PO Last administered on 03/12/17 09:56; Admin Dose 0.6 MG; Start 03/06/17 at 15:30; Stop 03/12/17 at 15:29 Morphine Sulfate (morphine) 2 mg Q3H PRN IV pain Last administered on 03/12/17 06:51; Admin Dose 2 MG; Start 03/08/17 at 18:00 Acetaminophen/ Hydrocodone Bitart ([place] (5/325)) 1 tab Q4H PRN PO PAIN LEVEL 7 -10 Last administered on 03/09/17 19:15; Admin Dose 1 TAB; Start 03/08/17 at 15: 30 Acetaminophen (Tylenol Tab) 650 mg Q6H PRN PO PAIN AND OR ELEVATED TEMP Last administered on 03/11/17 17:49; Admin Dose 650 MG; Start 03/08/17 at 23:30 Tramadol HCl (Ultram) 50 mg Q6H PRN PO PAIN Last administered on 03/09/17 11:47 ; Admin Dose 50 MG; Start 03/08/17 at 23:30 Sucralfate 1 gm 1 gm QID PO Last administered on 03/12/17 13:59; Admin Dose 1 GM; Start 03/10/17 at 21:00 Sodium Chloride (1/2 NS) 1,000 ml @ 75 mls/hr [id number] IV Last administered on 03/12/17 04:20; Admin Dose 75 MLS/HR; Start 03/11/17 at 12:30 MINA CALI Mar 12, 2017 14:56
[2017-03-12 19:26] VITALS: BP 151/94; RESP 22
[2017-03-12 20:00] VITALS: BP 152/82; RESP 19
--- NOTE | 2017-03-12 23:38 | CONS ---
Date/Time of Note Date/Time of Note DATE: 03/12/17 TIME: 23:38 Assessment/Plan Assessment/Plan Chief Complaint/Hosp Course Anemia, likely secondary to iron deficiency, with a history of gastrointestinal bleed in the past requiring blood transfusion. Hemoglobin stable. Leukocytosis, likely secondary to gallstone pancreatitis THROMBOCYTOSIS- REACTIVE CONT TO MONITOR Gallstone pancreatitis. Abdominal pain, most likely secondary to above.. Chronic kidney disease. History of gout. History of hypertension, blood pressure within acceptable range. 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 Problems: Consultation Date/Type/Reason Admit Date/Time March 01, 2017 at 05:46 Initial Consult Date 03/01/17 [facility] Referring Provider: MAGNOLIA PIERRE MD 24 HR Interval Summary Free Text/Dictation Still with some output from bile drain. No acute events overnight. count reviewed no bleeding Exam/Review of Systems Vital Signs Vitals Vital Signs Date Time Temp Pulse Resp B/P Pulse Ox O2 Delivery O2 Flow Rate FiO2 03/12/17 20:00 99.9 97 19 152/82 97 03/11/17 03:00 Nasal Cannula 2.0 03/10/17 21:26 40 Intake and Output 03/11/17 03/11/17 03/12/17 15:00 23:00 07:00 Intake Total 660 ml 1750 ml 1850 ml Output Total 1850 ml 1040 ml Balance 660 ml -100 ml 810 ml Exam Constitutional: alert, oriented, NAD Head: atraumatic, normocephalic Eyes: EOMI, PERRL, nl conjunctiva, nl lids, nl sclera ENMT: nl external ears & nose, nl lips & teeth, nl nasal mucosa & septum Neck: non-tender, supple Respiratory: + right side wheezing Cardiovascular: nl pulses, regular rate and rhythm Gastrointestinal: bowel sounds, hepatomegaly, soft, tender (Mild tenderness near incision sites), No ascites, No distended, No mass, + drain in place Musculoskeletal: nl extremities to inspection Extremities: normal pulses Results Result Diagram: 03/12/17 0450 03/12/17 0450 Results 24 hrs Laboratory Tests Test 03/12/17 04:50 White Blood Count 9.2 Red Blood Count 3.19 L Hemoglobin 9.1 L Hematocrit 28.0 L Mean Corpuscular Volume 87.8 Mean Corpuscular Hemoglobin 28.5 L Mean Corpuscular Hemoglobin Concent 32.5 Red Cell Distribution Width 15.9 H Platelet Count 478 H Mean Platelet Volume 9.6 Neutrophils % 71.3 Lymphocytes % 16.4 Monocytes % 6.2 Eosinophils % 4.7 Basophils % 0.3 Nucleated Red Blood Cells % 0.0 Neutrophils # 6.5 Lymphocytes # 1.5 Monocytes # 0.6 Eosinophils # 0.4 Basophils # 0.0 Nucleated Red Blood Cells # 0.0 Sodium Level 134 L Potassium Level 4.3 Chloride Level 110 Carbon Dioxide Level 16 L Anion Gap 12 Blood Urea Nitrogen 11 Creatinine 1.51 H Glucose Level 69 #L Calcium Level 8.2 L Medications Medications Current Medications Ondansetron HCl (Zofran Inj) 4 mg Q6H PRN IV N/V Last administered on 03/04/17 09:39; Admin Dose 4 MG; Start 03/01/17 at 08:00 Allopurinol (Zyloprim) 100 mg BID PO Last administered on 03/12/17 21:36; Admin Dose 100 MG; Start 03/01/17 at 21:00 Enalapril Maleate (Vasotec) 10 mg DAILY PO Last administered on 03/12/17 09:57 ; Admin Dose 10 MG; Start 03/02/17 at 09:00 Metoprolol Tartrate (Lopressor) 25 mg DAILY PO Last administered on 03/12/17 09 :57; Admin Dose 25 MG; Start 03/02/17 at 09:00 Pantoprazole 40 mg 40 mg BID@06,18 IV Last administered on 03/12/17 18:35; Admin Dose 40 MG; Start 03/04/17 at 18:00 Piperacillin Sod/ Tazobactam Sod (Zosyn 3.375gm/ 100 ml (Pmx)) 100 ml @ 200 mls /hr Q8 IVPB Last administered on 03/12/17 21:36; Admin Dose 200 MLS/HR; Start 03/05/17 at 11:30 Morphine Sulfate (morphine) 2 mg Q3H PRN IV pain Last administered on 03/12/17 06:51; Admin Dose 2 MG; Start 03/08/17 at 18:00 Acetaminophen/ Hydrocodone Bitart ([place] (5/325)) 1 tab Q4H PRN PO PAIN LEVEL 7 -10 Last administered on 03/09/17 19:15; Admin Dose 1 TAB; Start 03/08/17 at 15: 30 Acetaminophen (Tylenol Tab) 650 mg Q6H PRN PO PAIN AND OR ELEVATED TEMP Last administered on 03/11/17 17:49; Admin Dose 650 MG; Start 03/08/17 at 23:30 Tramadol HCl (Ultram) 50 mg Q6H PRN PO PAIN Last administered on 03/09/17 11:47 ; Admin Dose 50 MG; Start 03/08/17 at 23:30 Sucralfate 1 gm 1 gm QID PO Last administered on 03/12/17 21:36; Admin Dose 1 GM; Start 03/10/17 at 21:00 Sodium Chloride (1/2 NS) 1,000 ml @ 75 mls/hr [id number] IV Last administered on 03/12/17 18:39; Admin Dose 75 MLS/HR; Start 03/11/17 at 12:30 NARAYAN FERNÁNDEZ MD Mar 12, 2017 23:38
[2017-03-13] MEDS: SOD CHLORIDE 0.45% 1,000 ML IV SCH ×2 (04:17→17:43)
[2017-03-13] MEDS: PIPER-TAZO 3.375 GM IV (PMX) 100 ML IVPB SCH (05:01)
[2017-03-13] MEDS: PANTOPRAZOLE 40 MG INJ IV SCH ×2 (05:01→17:36)
[2017-03-13 05:04] LABS: ADD SCAN DIFF NO
[2017-03-13 05:12] LABS: BASOPHILS % 0.3 % (0.0-2.0); EOSINOPHILS % 0.2 % (0.0-7.0); HEMATOCRIT 26.3 % (42.0-52.0); HEMOGLOBIN 8.6 g/dl (14.0-18.0); LYMPHOCYTES # 1.2 10^3/ul (0.8-2.9); LYMPHOCYTES % 11.8 % (15.0-51.0); MEAN CORPUSCULAR HEMOGLOBIN 28.8 pg (29.0-33.0); MEAN CORPUSCULAR HGB CONC 32.7 g/dl (32.0-37.0); MEAN PLATELET VOLUME 9.5 fl (7.4-10.4); MONOCYTE # 0.4 10^3/ul (0.3-0.9); MONOCYTES % 3.5 % (0.0-11.0); NEUTROPHIL # 8.2 10^3/ul (1.6-7.5); NEUTROPHILS % 83.4 % (39.0-77.0); PLATELET COUNT 471 10^3/UL (140-415); RED BLOOD COUNT 2.99 10^6/ul (4.70-6.10); RED CELL DISTRIBUTION WIDTH 15.9 % (11.5-14.5); WHITE BLOOD COUNT 9.9 10^3/ul (4.8-10.8)
[2017-03-13 05:40] LABS: CREATININE 1.44 mg/dl (0.61-1.24); POTASSIUM 4.3 mmol/L (3.5-5.1)
[2017-03-13 08:11] VITALS: BP 159/82; RESP 22
[2017-03-13] MEDS: SUCRALFATE (100 MG/ML) 10ML CUP PO SCH ×4 (08:25→21:40)
[2017-03-13] MEDS: METOPROLOL 25 MG TAB PO SCH (08:25)
[2017-03-13] MEDS: ALLOPURINOL 100 MG TAB PO SCH ×2 (08:26→21:40)
[2017-03-13] MEDS: ENALAPRIL 10 MG TAB PO SCH (08:26)
--- NOTE | 2017-03-13 10:02 | PN ---
DATE: 03/13/2017 Postoperative day #8. The patient is quite comfortable and she has been afebrile throughout. Her a bdominal examination is benign. Her SHANTE drainage is diminished to 100 mL over the last 24 hours, but is still bilious. PHYSICAL EXAMINATION: ABDOMEN: Soft. LABORATORY DATA: Hematocrit 26.3, white count 9,900. LFTs are normal. IMPRESSION: Bilious drainage is decreasing. The patient is comfortable. PLAN: Continue medical management. Dictated By: FRACISCO GREENE/ROXANNE Conf#: [id number] DID#: [id number]
--- NOTE | 2017-03-13 10:40 | PN ---
Date/Time of Note Date/Time of Note DATE: 03/13/17 TIME: 10:37 Assessment/Plan VTE Prophylaxis VTE Prophylaxis Intervention: SCD's Lines/Catheters IV Catheter Type (from Nrs): Peripheral IV Urinary Cath still in place: No Assessment/Plan Chief Complaint/Hosp Course Assessment/Plan: 86 yo M with pmhx gout, HTN, CKD admitted for abd pain found to have gallstone pancreatitis sp lap ashleigh by gen surg, now with bile leak 1. gallstone pancreatitis: sp lap ashleigh POD # 8, again, with subsequent bile leak, s/p ERCP 3 days ago with biliary stent placement. SHANTE drainage has diminished to 100 mL over the last 24 hours, but is still bilious. - continue abx, pain meds, IVFs- switch to PO abx. - f/u GI and surg rec's - f/u post procedure rec's - PPI IV BID 2. HTN: stable - cont home meds 3. gout flare: slowly improving - cont colchicine course (started 6.3). - Also cont home allopurinol 4. diet: as per gen surg 5. DVT prophx: SCDs 6. dispo: as per gen surg, PT Problems: Subjective 24 Hr Interval Summary Free Text/Dictation Pt has some mild SOB, no acute events overnight. Exam/Review of Systems Vital Signs Vitals Vital Signs Date Time Temp Pulse Resp B/P Pulse Ox O2 Delivery O2 Flow Rate FiO2 03/13/17 08:11 98.6 91 22 159/82 100 03/11/17 03:00 Nasal Cannula 2.0 03/10/17 21:26 40 Intake and Output 03/12/17 03/12/17 03/13/17 15:00 23:00 07:00 Intake Total 1100 ml 2460 ml 590 ml Output Total 500 ml 650 ml Balance 1100 ml 1960 ml -60 ml Exam Constitutional: alert, oriented, NAD Head: atraumatic, normocephalic Eyes: EOMI, PERRL, nl conjunctiva, nl lids, nl sclera ENMT: nl external ears & nose, nl lips & teeth, nl nasal mucosa & septum Neck: non-tender, supple Respiratory: + right side wheezing Cardiovascular: nl pulses, regular rate and rhythm Gastrointestinal: bowel sounds, hepatomegaly, soft, tender (Mild tenderness near incision sites), No ascites, No distended, No mass, + drain in place Musculoskeletal: nl extremities to inspection Extremities: normal pulses Results Result Diagram: 03/13/17 0440 03/13/17 0440 Results 24 hrs Laboratory Tests Test 03/13/17 04:40 White Blood Count 9.9 Red Blood Count 2.99 L Hemoglobin 8.6 L Hematocrit 26.3 L Mean Corpuscular Volume 88.0 Mean Corpuscular Hemoglobin 28.8 L Mean Corpuscular Hemoglobin Concent 32.7 Red Cell Distribution Width 15.9 H Platelet Count 471 H Mean Platelet Volume 9.5 Neutrophils % 83.4 H Lymphocytes % 11.8 L Monocytes % 3.5 Eosinophils % 0.2 Basophils % 0.3 Nucleated Red Blood Cells % 0.0 Neutrophils # 8.2 H Lymphocytes # 1.2 Monocytes # 0.4 Eosinophils # 0.0 Basophils # 0.0 Nucleated Red Blood Cells # 0.0 Sodium Level 133 L Potassium Level 4.3 Chloride Level 109 Carbon Dioxide Level 14 L Anion Gap 14 Blood Urea Nitrogen 9 Creatinine 1.44 H Glucose Level 71 Calcium Level 8.0 L Medications Medications Current Medications Ondansetron HCl (Zofran Inj) 4 mg Q6H PRN IV N/V Last administered on 03/04/17 09:39; Admin Dose 4 MG; Start 03/01/17 at 08:00 Allopurinol (Zyloprim) 100 mg BID PO Last administered on 03/13/17 08:26; Admin Dose 100 MG; Start 03/01/17 at 21:00 Enalapril Maleate (Vasotec) 10 mg DAILY PO Last administered on 03/13/17 08:26 ; Admin Dose 10 MG; Start 03/02/17 at 09:00 Metoprolol Tartrate (Lopressor) 25 mg DAILY PO Last administered on 03/13/17 08:25; Admin Dose 25 MG; Start 03/02/17 at 09:00 Pantoprazole (Protonix Iv) 40 mg BID@ IV Last administered on 03/13/17 05 :01; Admin Dose 40 MG; Start 03/04/17 at 18:00 Morphine Sulfate (morphine) 2 mg Q3H PRN IV pain Last administered on 03/12/17 06:51; Admin Dose 2 MG; Start 03/08/17 at 18:00 Acetaminophen/ Hydrocodone Bitart ([place] (5/325)) 1 tab Q4H PRN PO PAIN LEVEL 7 -10 Last administered on 03/09/17 19:15; Admin Dose 1 TAB; Start 03/08/17 at 15: 30 Acetaminophen (Tylenol Tab) 650 mg Q6H PRN PO PAIN AND OR ELEVATED TEMP Last administered on 03/11/17 17:49; Admin Dose 650 MG; Start 03/08/17 at 23:30 Tramadol HCl (Ultram) 50 mg Q6H PRN PO PAIN Last administered on 03/09/17 11:47 ; Admin Dose 50 MG; Start 03/08/17 at 23:30 Sucralfate 1 gm 1 gm QID PO Last administered on 03/13/17 08:25; Admin Dose 1 GM; Start 03/10/17 at 21:00 Sodium Chloride (1/2 NS) 1,000 ml @ 75 mls/hr [id number] IV Last administered on 03/13/17 04:17; Admin Dose 75 MLS/HR; Start 03/11/17 at 12:30 MINA CALI Mar 13, 2017 10:40
--- NOTE | 2017-03-13 11:32 | PN ---
Date/Time of Note Date/Time of Note DATE: 03/13/17 TIME: 11:27 Assessment/Plan VTE Prophylaxis VTE Prophylaxis Intervention: SCD's Lines/Catheters [facility] (from [facility] Peripheral IV Urinary Cath still in place: No Assessment/Plan Assessment/Plan Assessment * Bile leak ERCP with placement of biliary stent * S/P laparoscopic cholecystectomy * Duodenal ulcer Plan * continue present management * case was discussed with Dr Burgess * Further orders will depend on clinical course Subjective 24 Hr Interval Summary Free Text/Dictation * Course reviewed with RN * Patient seen and examined * No abdominal pain,nausea vomiting * Selwyn Webb drain minimal in amount Exam/Review of Systems Vital Signs Vitals Vital Signs Date Time Temp Pulse Resp B/P Pulse Ox O2 Delivery O2 Flow Rate FiO2 03/13/17 08:11 98.6 91 22 159/82 100 03/11/17 03:00 Nasal Cannula 2.0 03/10/17 21:26 40 Intake and Output 03/12/17 03/12/17 03/13/17 15:00 23:00 07:00 Intake Total 1100 ml 2460 ml 590 ml Output Total 500 ml 650 ml Balance 1100 ml 1960 ml -60 ml Exam Constitutional: alert, frail Neck: non-tender, supple Respiratory: clear to auscultation, normal air movement Cardiovascular: nl pulses, regular rate and rhythm Gastrointestinal: nl liver, spleen, non-tender, other (jacksonn ptatt drain), soft Musculoskeletal: nl extremities to inspection Extremities: normal pulses Neurological: nl speech Skin: nl turgor, No rash or lesions Results Result Diagram: 03/13/17 0440 03/13/17 0440 Results 24 hrs Laboratory Tests Test 03/13/17 04:40 White Blood Count 9.9 Red Blood Count 2.99 L Hemoglobin 8.6 L Hematocrit 26.3 L Mean Corpuscular Volume 88.0 Mean Corpuscular Hemoglobin 28.8 L Mean Corpuscular Hemoglobin Concent 32.7 Red Cell Distribution Width 15.9 H Platelet Count 471 H Mean Platelet Volume 9.5 Neutrophils % 83.4 H Lymphocytes % 11.8 L Monocytes % 3.5 Eosinophils % 0.2 Basophils % 0.3 Nucleated Red Blood Cells % 0.0 Neutrophils # 8.2 H Lymphocytes # 1.2 Monocytes # 0.4 Eosinophils # 0.0 Basophils # 0.0 Nucleated Red Blood Cells # 0.0 Sodium Level 133 L Potassium Level 4.3 Chloride Level 109 Carbon Dioxide Level 14 L Anion Gap 14 Blood Urea Nitrogen 9 Creatinine 1.44 H Glucose Level 71 Calcium Level 8.0 L Medications Medications Current Medications Ondansetron HCl (Zofran Inj) 4 mg Q6H PRN IV N/V Last administered on 03/04/17 09:39; Admin Dose 4 MG; Start 03/01/17 at 08:00 Allopurinol (Zyloprim) 100 mg BID PO Last administered on 03/13/17 08:26; Admin Dose 100 MG; Start 03/01/17 at 21:00 Enalapril Maleate (Vasotec) 10 mg DAILY PO Last administered on 03/13/17 08:26 ; Admin Dose 10 MG; Start 03/02/17 at 09:00 Metoprolol Tartrate (Lopressor) 25 mg DAILY PO Last administered on 03/13/17 08:25; Admin Dose 25 MG; Start 03/02/17 at 09:00 Pantoprazole (Protonix Iv) 40 mg BID@18 IV Last administered on 03/13/17 05 :01; Admin Dose 40 MG; Start 03/04/17 at 18:00 Morphine Sulfate (morphine) 2 mg Q3H PRN IV pain Last administered on 03/12/17 06:51; Admin Dose 2 MG; Start 03/08/17 at 18:00 Acetaminophen/ Hydrocodone Bitart ([place] (5/325)) 1 tab Q4H PRN PO PAIN LEVEL 7 -10 Last administered on 03/09/17 19:15; Admin Dose 1 TAB; Start 03/08/17 at 15: 30 Acetaminophen (Tylenol Tab) 650 mg Q6H PRN PO PAIN AND OR ELEVATED TEMP Last administered on 03/11/17 17:49; Admin Dose 650 MG; Start 03/08/17 at 23:30 Tramadol HCl (Ultram) 50 mg Q6H PRN PO PAIN Last administered on 03/09/17 11:47 ; Admin Dose 50 MG; Start 03/08/17 at 23:30 Sucralfate 1 gm 1 gm QID PO Last administered on 03/13/17 08:25; Admin Dose 1 GM; Start 03/10/17 at 21:00 Sodium Chloride (1/2 NS) 1,000 ml @ 75 mls/hr [id number] IV Last administered on 03/13/17t 04:17; Admin Dose 75 MLS/HR; Start 03/11/17 at 12:30 Levofloxacin (Levaquin) 750 mg Q48H PO ; Start 03/13/17 at 12:00 FIDE CORDOVA NP Mar 13, 2017 11:32
[2017-03-13 12:22] LABS: Arterial Base Excess -8.9 mmol/L (-3.0-3); Arterial COHb 0.2 % (0.0-3.0); Arterial Fraction of Oxyhgb 96.6 % (93.0-99.0); Arterial HCO3 14.8 mmol/L (22.0-26.0); Arterial MetHb 0.3 % (0.0-1.5); MODE NASAL CANNULA
[2017-03-13] MEDS ORDERED: ALBUTEROL/IPRATROPIUM (NEB) 3 ML AMP HHN PRN (13:00)
[2017-03-13] MEDS ORDERED: NA BICARBONATE 4.2% INFANT SYG IV* ONE (13:00)
[2017-03-13] MEDS: LEVOFLOXACIN 750 MG TABLET PO SCH (13:36)
[2017-03-13] MEDS ORDERED: [UNRECOGNIZED DRUG - OTHER] IV SCH (14:00)
[2017-03-13] MEDS ORDERED: WATER STERILE FOR IV SCH (14:00)
[2017-03-13] MEDS ORDERED: SODIUM BICARBONATE IV SCH (14:00)
[2017-03-13] MEDS: ALBUTEROL/IPRATROPIUM (NEB) 3 ML AMP HHN SCH ×3 (15:10→20:55)
--- NOTE | 2017-03-13 15:55 | CONS ---
Date/Time of Note Date/Time of Note DATE: 03/13/17 TIME: 15:54 Assessment/Plan Assessment/Plan Chief Complaint/Hosp Course Anemia, likely secondary to iron deficiency, with a history of gastrointestinal bleed in the past requiring blood transfusion. Hemoglobin stable. Leukocytosis, likely secondary to gallstone pancreatitis THROMBOCYTOSIS- REACTIVE CONT TO MONITOR Gallstone pancreatitis. Abdominal pain, most likely secondary to above.. Chronic kidney disease. History of gout. History of hypertension, blood pressure within acceptable range. 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 Problems: Consultation Date/Type/Reason Admit Date/Time March 01, 2017 at 05:46 Initial Consult Date 03/01/17 [facility] Referring Provider: MAGNOLIA PIERRE MD 24 HR Interval Summary Free Text/Dictation Pt has some mild SOB, no acute events overnight. count sl down no bleeding Exam/Review of Systems Vital Signs Vitals Vital Signs Date Time Temp Pulse Resp B/P Pulse Ox O2 Delivery O2 Flow Rate FiO2 03/13/17 15:11 85 20 99 Nasal Cannula 3.0 03/13/17 08:11 98.6 159/82 03/10/17 21:26 40 Intake and Output 03/12/17 03/12/17 03/13/17 15:00 23:00 07:00 Intake Total 1100 ml 2460 ml 590 ml Output Total 500 ml 650 ml Balance 1100 ml 1960 ml -60 ml Exam Constitutional: alert, oriented, NAD Head: atraumatic, normocephalic Eyes: EOMI, PERRL, nl conjunctiva, nl lids, nl sclera ENMT: nl external ears & nose, nl lips & teeth, nl nasal mucosa & septum Neck: non-tender, supple Respiratory: + right side wheezing Cardiovascular: nl pulses, regular rate and rhythm Gastrointestinal: bowel sounds, hepatomegaly, soft, tender (Mild tenderness near incision sites), No ascites, No distended, No mass, + drain in place Musculoskeletal: nl extremities to inspection Extremities: normal pulses Results Result Diagram: 03/13/170 03/13/17 0440 Results 24 hrs Laboratory Tests Test 03/13/17 04:40 03/13/17 10:33 03/13/17 11:32 White Blood Count 9.9 Red Blood Count 2.99 L Hemoglobin 8.6 L Hematocrit 26.3 L Mean Corpuscular Volume 88.0 Mean Corpuscular Hemoglobin 28.8 L Mean Corpuscular Hemoglobin Concent 32.7 Red Cell Distribution Width 15.9 H Platelet Count 471 H Mean Platelet Volume 9.5 Neutrophils % 83.4 H Lymphocytes % 11.8 L Monocytes % 3.5 Eosinophils % 0.2 Basophils % 0.3 Nucleated Red Blood Cells % 0.0 Neutrophils # 8.2 H Lymphocytes # 1.2 Monocytes # 0.4 Eosinophils # 0.0 Basophils # 0.0 Nucleated Red Blood Cells # 0.0 Sodium Level 133 L Potassium Level 4.3 Chloride Level 109 Carbon Dioxide Level 14 L Anion Gap 14 Blood Urea Nitrogen 9 Creatinine 1.44 H Glucose Level 71 Calcium Level 8.0 L Blood Gas Specimen Source Blood arterial Arterial Blood Date Drawn 03/13/2017 12:00:08 PM Arterial Blood pH (Temp corrected) 7.382 Arterial Blood pCO2 (Temp correct) 25.5 L Arterial Blood pO2 (Temp corrected) 101.8 H Arterial Blood HCO3 14.8 L Arterial Blood Base Excess -8.9 L Arterial Blood Oxygen Saturation 97.1 Mike Test N/A Arterial Blood Gas Puncture Site LB Arterial Blood Carboxyhemoglobin 0.2 Arterial Blood Methemoglobin 0.3 Blood Gas A-a O2 Differential 39.0 H Oxyhemoglobin Percent 96.6 Total Hemoglobin 10.0 L Blood Gas Temperature 37.0 Blood Gas Modality NASAL CANNULA FiO2 24.0 Blood Gas Notified Whom Fany CAMARA Blood Gas Notified Time 03/13/2017 12:20:52 PM Lactic Acid Level 0.8 Medications Medications Current Medications Ondansetron HCl (Zofran Inj) 4 mg Q6H PRN IV N/V Last administered on 03/04/17 09:39; Admin Dose 4 MG; Start 03/01/17 at 08:00 Allopurinol (Zyloprim) 100 mg BID PO Last administered on 03/13/17 08:26; Admin Dose 100 MG; Start 03/01/17 at 21:00 Enalapril Maleate (Vasotec) 10 mg DAILY PO Last administered on 03/13/17 08:26 ; Admin Dose 10 MG; Start 03/02/17 at 09:00 Metoprolol Tartrate (Lopressor) 25 mg DAILY PO Last administered on 03/13/17 08:25; Admin Dose 25 MG; Start 03/02/17 at 09:00 Pantoprazole (Protonix Iv) 40 mg BID@06,18 IV Last administered on 03/13/17 05 :01; Admin Dose 40 MG; Start 03/04/17 at 18:00 Morphine Sulfate (morphine) 2 mg Q3H PRN IV pain Last administered on 03/12/17 06:51; Admin Dose 2 MG; Start 03/08/17 at 18:00 Acetaminophen/ Hydrocodone Bitart ([place] (5/325)) 1 tab Q4H PRN PO PAIN LEVEL 7 -10 Last administered on 03/09/17 19:15; Admin Dose 1 TAB; Start 03/08/17 at 15: 30 Acetaminophen (Tylenol Tab) 650 mg Q6H PRN PO PAIN AND OR ELEVATED TEMP Last administered on 03/11/17 17:49; Admin Dose 650 MG; Start 03/08/17 at 23:30 Tramadol HCl (Ultram) 50 mg Q6H PRN PO PAIN Last administered on 03/09/17 11:47 ; Admin Dose 50 MG; Start 03/08/17 at 23:30 Sucralfate 1 gm 1 gm QID PO Last administered on 03/13/17 13:36; Admin Dose 1 GM; Start 03/10/17 at 21:00 Sodium Chloride (1/2 NS) 1,000 ml @ 75 mls/hr [id number] IV Last administered on 03/13/17 04:17; Admin Dose 75 MLS/HR; Start 03/11/17 at 12:30 Levofloxacin (Levaquin) 750 mg Q48H PO Last administered on 03/13/17 13:36; Admin Dose 750 MG; Start 03/13/17 at 12:00 NARAYAN FERNÁNDEZ MD Mar 13, 2017 15:55
[2017-03-13 20:31] VITALS: BP 142/70; RESP 20
[2017-03-14] MEDS: ALBUTEROL/IPRATROPIUM (NEB) 3 ML AMP HHN SCH ×3 (00:34→09:24)
[2017-03-14 05:18] LABS: ADD SCAN DIFF NO
[2017-03-14 05:39] LABS: CALCIUM 7.9 mg/dl (8.4-10.2); CREATININE 1.28 mg/dl (0.61-1.24); POTASSIUM 3.7 mmol/L (3.5-5.1)
[2017-03-14] MEDS: PANTOPRAZOLE 40 MG INJ IV SCH ×2 (05:46→18:05)
[2017-03-14] MEDS: SOD CHLORIDE 0.45% 1,000 ML IV SCH ×3 (05:48→23:03)
[2017-03-14] MEDS: HYDROCODONE/APAP (5/325) TAB PO PRN (05:48)
[2017-03-14 06:09] LABS: PHOSPHORUS 2.7 mg/dl (2.5-4.9)
[2017-03-14 06:19] LABS: MAGNESIUM 0.8 mg/dl (1.7-2.5)
[2017-03-14 06:49] VITALS: BP 152/75; PULSE 120; RESP 18
[2017-03-14] MEDS ORDERED: MAGNESIUM SULFATE 1 GM/D5W 100 ML IVPB ONE (07:00)
[2017-03-14 07:16] VITALS: BP 142/69; RESP 18
[2017-03-14 08:05] LABS: BASOPHILS % 0.2 % (0.0-2.0); EOSINOPHILS # 0.1 10^3/ul (0.0-0.5); EOSINOPHILS % 0.7 % (0.0-7.0); HEMATOCRIT 27.4 % (42.0-52.0); HEMOGLOBIN 9.2 g/dl (14.0-18.0); LYMPHOCYTES # 1.6 10^3/ul (0.8-2.9); LYMPHOCYTES % 14.8 % (15.0-51.0); MEAN CORPUSCULAR HEMOGLOBIN 29.3 pg (29.0-33.0); MEAN CORPUSCULAR HGB CONC 33.6 g/dl (32.0-37.0); MEAN CORPUSCULAR VOLUME 87.3 fl (82.0-101.0); MEAN PLATELET VOLUME 9.5 fl (7.4-10.4); MONOCYTE # 0.8 10^3/ul (0.3-0.9); MONOCYTES % 7.1 % (0.0-11.0); NEUTROPHIL # 8.3 10^3/ul (1.6-7.5); NEUTROPHILS % 76.4 % (39.0-77.0); PLATELET COUNT 538 10^3/UL (140-415); RED BLOOD COUNT 3.14 10^6/ul (4.70-6.10); RED CELL DISTRIBUTION WIDTH 15.9 % (11.5-14.5); WHITE BLOOD COUNT 10.8 10^3/ul (4.8-10.8)
[2017-03-14] MEDS: ALLOPURINOL 100 MG TAB PO SCH ×2 (09:43→20:32)
[2017-03-14] MEDS: METOPROLOL 25 MG TAB PO SCH (09:43)
[2017-03-14] MEDS: SUCRALFATE (100 MG/ML) 10ML CUP PO SCH ×4 (09:43→20:32)
--- NOTE | 2017-03-14 10:20 | PN ---
Date/Time of Note Date/Time of Note DATE: 03/14/17 TIME: 10:16 Assessment/Plan VTE Prophylaxis VTE Prophylaxis Intervention: ambulation Lines/Catheters [facility] Peripheral IV Urinary Cath still in place: No Assessment/Plan Chief Complaint/Hosp Course Problems: Assessment/Plan Assessment * Bile leak ERCP with placement of biliary stent * S/P laparoscopic cholecystectomy * Duodenal ulcer Plan * continue present management * continue monitoring Selwyn Blackburn drain * Further orders will depend on clinical course Subjective 24 Hr Interval Summary Free Text/Dictation * Course reviewed with RN * Patient seen and examined * No abdominal pain,afebrile * Selwyn Blackburn drain 130 ml Exam/Review of Systems Vital Signs Vitals Vital Signs Date Time Temp Pulse Resp B/P Pulse Ox O2 Delivery O2 Flow Rate FiO2 03/14/17 09:24 97 2.0 03/14/17 09:24 106 26 Nasal Cannula 03/14/17 07:16 98.5 142/69 03/10/17 21:26 40 Intake and Output 03/13/17 03/13/17 03/14/17 15:00 23:00 07:00 Intake Total 1300 ml 1350 ml Output Total 590 ml 1140 ml Balance 710 ml 210 ml Exam Constitutional: alert, frail Eyes: nl sclera Neck: non-tender, supple Respiratory: clear to auscultation, normal air movement Cardiovascular: nl pulses, regular rate and rhythm Gastrointestinal: non-tender, other (selwyn blackburn drain), soft Musculoskeletal: nl extremities to inspection Extremities: normal pulses Neurological: nl speech Skin: nl turgor, No rash or lesions Results Result Diagram: 03/14/17 0730 03/14/17 0449 Results 24 hrs Laboratory Tests Test 03/13/17 10:33 03/13/17 11:32 03/14/17 04:49 03/14/17 07:30 Blood Gas Specimen Source Blood arterial Arterial Blood Date Drawn 03/13/2017 12:00:08 PM Arterial Blood pH (Temp corrected) 7.382 Arterial Blood pCO2 (Temp correct) 25.5 L Arterial Blood pO2 (Temp corrected) 101.8 H Arterial Blood HCO3 14.8 L Arterial Blood Base Excess -8.9 L Arterial Blood Oxygen Saturation 97.1 Mike Test N/A Arterial Blood Gas Puncture Site LB Arterial Blood Carboxyhemoglobin 0.2 Arterial Blood Methemoglobin 0.3 Blood Gas A-a O2 Differential 39.0 H Oxyhemoglobin Percent 96.6 Total Hemoglobin 10.0 L Blood Gas Temperature 37.0 Blood Gas Modality NASAL CANNULA FiO2 24.0 Blood Gas Notified Whom Fany CAMARA Blood Gas Notified Time 03/13/2017 12:20:52 PM Lactic Acid Level 0.8 Sodium Level 135 Potassium Level 3.7 Chloride Level 109 Carbon Dioxide Level 17 L Anion Gap 13 Blood Urea Nitrogen 8 Creatinine 1.28 H Glucose Level 81 Calcium Level 7.9 L Phosphorus Level 2.7 Magnesium Level 0.8 *L White Blood Count 10.8 Red Blood Count 3.14 L Hemoglobin 9.2 L Hematocrit 27.4 L Mean Corpuscular Volume 87.3 Mean Corpuscular Hemoglobin 29.3 Mean Corpuscular Hemoglobin Concent 33.6 Red Cell Distribution Width 15.9 H Platelet Count 538 H Mean Platelet Volume 9.5 Neutrophils % 76.4 Lymphocytes % 14.8 L Monocytes % 7.1 Eosinophils % 0.7 Basophils % 0.2 Nucleated Red Blood Cells % 0.0 Neutrophils # 8.3 H Lymphocytes # 1.6 Monocytes # 0.8 Eosinophils # 0.1 Basophils # 0.0 Nucleated Red Blood Cells # 0.0 Medications Medications Current Medications Ondansetron HCl (Zofran Inj) 4 mg Q6H PRN IV N/V Last administered on 03/04/17 09:39; Admin Dose 4 MG; Start 03/01/17 at 08:00 Allopurinol (Zyloprim) 100 mg BID PO Last administered on 03/14/17 09:43; Admin Dose 100 MG; Start 03/01/17 at 21:00 Enalapril Maleate (Vasotec) 10 mg DAILY PO Last administered on 03/13/17 08:26 ; Admin Dose 10 MG; Start 03/02/17 at 09:00 Metoprolol Tartrate (Lopressor) 25 mg DAILY PO Last administered on 03/14/17 09:43; Admin Dose 25 MG; Start 03/02/17 at 09:00 Pantoprazole (Protonix Iv) 40 mg BID@ IV Last administered on 03/14/17 05 :46; Admin Dose 40 MG; Start 03/04/17 at 18:00 Morphine Sulfate (morphine) 2 mg Q3H PRN IV pain Last administered on 03/12/17 06:51; Admin Dose 2 MG; Start 03/08/17 at 18:00 Acetaminophen/ Hydrocodone Bitart ([place] (5/325)) 1 tab Q4H PRN PO PAIN LEVEL 7 -10 Last administered on 03/14/17 05:48; Admin Dose 1 TAB; Start 03/08/17 at 15: 30 Acetaminophen (Tylenol Tab) 650 mg Q6H PRN PO PAIN AND OR ELEVATED TEMP Last administered on 03/11/17 17:49; Admin Dose 650 MG; Start 03/08/17 at 23:30 Tramadol HCl (Ultram) 50 mg Q6H PRN PO PAIN Last administered on 03/09/17 11:47 ; Admin Dose 50 MG; Start 03/08/17 at 23:30 Sucralfate 1 gm 1 gm QID PO Last administered on 03/14/17 09:43; Admin Dose 1 GM; Start 03/10/17 at 21:00 Sodium Chloride (1/2 NS) 1,000 ml @ 75 mls/hr [id number] IV Last administered on 03/14/17 05:48; Admin Dose 75 MLS/HR; Start 03/11/17 at 12:30 Levofloxacin (Levaquin) 750 mg Q48H PO Last administered on 03/13/17 13:36; Admin Dose 750 MG; Start 03/13/17 at 12:00 CALVIN THAKUR MD Mar 14, 2017 10:20
[2017-03-14 12:00] VITALS: BP 139/73; PULSE 85
[2017-03-14] MEDS: ENALAPRIL 10 MG TAB PO SCH (12:28)
--- NOTE | 2017-03-14 14:04 | PN ---
Date/Time of Note Date/Time of Note DATE: 03/14/17 TIME: 13:59 Assessment/Plan VTE Prophylaxis VTE Prophylaxis Intervention: SCD's Lines/Catheters IV Catheter Type (from Nrs): Peripheral IV Urinary Cath still in place: No Assessment/Plan Chief Complaint/Hosp Course Assessment/Plan: 86 yo M with pmhx gout, HTN, CKD admitted for abd pain found to have gallstone pancreatitis sp lap ashlegih by gen surg, now with bile leak 1. gallstone pancreatitis: sp lap ashleigh POD # 9, again, with subsequent bile leak, s/p ERCP 4 days ago with biliary stent placement. SHANTE drainage still has some bilious drainage. - continue abx, pain meds, IVFs, PO abx. - f/u GI and surg rec's - f/u post procedure rec's - PPI IV BID 2. HTN: stable - cont home meds 3. gout flare: slowly improving - cont colchicine course (started 6.3). - Also cont home allopurinol 4. diet: as per gen surg 5. DVT prophx: SCDs 6. dispo: as per gen surg, PT 7. low mag - replete Problems: Subjective 24 Hr Interval Summary Free Text/Dictation Pt had no acute events overnight. Exam/Review of Systems Vital Signs Vitals Vital Signs Date Time Temp Pulse Resp B/P Pulse Ox O2 Delivery O2 Flow Rate FiO2 03/14/17 12:00 85 139/73 03/14/17 09:24 97 2.0 03/14/17 09:24 26 Nasal Cannula 03/14/17 07:16 98.5 03/10/17 21:26 40 Intake and Output 03/13/17 03/13/17 03/14/17 15:00 23:00 07:00 Intake Total 1300 ml 1350 ml Output Total 590 ml 1140 ml Balance 710 ml 210 ml Exam Constitutional: alert, oriented, NAD Head: atraumatic, normocephalic Eyes: EOMI, PERRL, nl conjunctiva, nl lids, nl sclera ENMT: nl external ears & nose, nl lips & teeth, nl nasal mucosa & septum Neck: non-tender, supple Respiratory: + right side wheezing Cardiovascular: nl pulses, regular rate and rhythm Gastrointestinal: bowel sounds, hepatomegaly, soft, tender (Mild tenderness near incision sites), No ascites, No distended, No mass, + drain in place Musculoskeletal: nl extremities to inspection Extremities: normal pulses Results Result Diagram: 03/14/17 0730 03/14/17 0449 Results 24 hrs Laboratory Tests Test 03/14/17 04:49 03/14/17 07:30 Sodium Level 135 Potassium Level 3.7 Chloride Level 109 Carbon Dioxide Level 17 L Anion Gap 13 Blood Urea Nitrogen 8 Creatinine 1.28 H Glucose Level 81 Calcium Level 7.9 L Phosphorus Level 2.7 Magnesium Level 0.8 *L White Blood Count 10.8 Red Blood Count 3.14 L Hemoglobin 9.2 L Hematocrit 27.4 L Mean Corpuscular Volume 87.3 Mean Corpuscular Hemoglobin 29.3 Mean Corpuscular Hemoglobin Concent 33.6 Red Cell Distribution Width 15.9 H Platelet Count 538 H Mean Platelet Volume 9.5 Neutrophils % 76.4 Lymphocytes % 14.8 L Monocytes % 7.1 Eosinophils % 0.7 Basophils % 0.2 Nucleated Red Blood Cells % 0.0 Neutrophils # 8.3 H Lymphocytes # 1.6 Monocytes # 0.8 Eosinophils # 0.1 Basophils # 0.0 Nucleated Red Blood Cells # 0.0 Medications Medications Current Medications Ondansetron HCl (Zofran Inj) 4 mg Q6H PRN IV N/V Last administered on 03/04/17 09:39; Admin Dose 4 MG; Start 03/01/17 at 08:00 Allopurinol (Zyloprim) 100 mg BID PO Last administered on 03/14/17 09:43; Admin Dose 100 MG; Start 03/01/17 at 21:00 Enalapril Maleate (Vasotec) 10 mg DAILY PO Last administered on 03/14/17 12:28 ; Admin Dose 10 MG; Start 03/02/17 at 09:00 Metoprolol Tartrate (Lopressor) 25 mg DAILY PO Last administered on 03/14/17 09:43; Admin Dose 25 MG; Start 03/02/17 at 09:00 Pantoprazole (Protonix Iv) 40 mg BID@,18 IV Last administered on 03/14/17 05 :46; Admin Dose 40 MG; Start 03/04/17 at 18:00 Morphine Sulfate (morphine) 2 mg Q3H PRN IV pain Last administered on 03/12/17 06:51; Admin Dose 2 MG; Start 03/08/17 at 18:00 Acetaminophen/ Hydrocodone Bitart ([place] (5/325)) 1 tab Q4H PRN PO PAIN LEVEL 7 -10 Last administered on 03/14/17 05:48; Admin Dose 1 TAB; Start 03/08/17 at 15: 30 Acetaminophen (Tylenol Tab) 650 mg Q6H PRN PO PAIN AND OR ELEVATED TEMP Last administered on 03/11/17 17:49; Admin Dose 650 MG; Start 03/08/17 at 23:30 Tramadol HCl (Ultram) 50 mg Q6H PRN PO PAIN Last administered on 03/09/17 11:47 ; Admin Dose 50 MG; Start 03/08/17 at 23:30 Sucralfate 1 gm 1 gm QID PO Last administered on 03/14/17 13:53; Admin Dose 1 GM; Start 03/10/17 at 21:00 Sodium Chloride (1/2 NS) 1,000 ml @ 75 mls/hr [id number] IV Last administered on 03/14/17 05:48; Admin Dose 75 MLS/HR; Start 03/11/17 at 12:30 Levofloxacin (Levaquin) 750 mg Q48H PO Last administered on 03/13/17 13:36; Admin Dose 750 MG; Start 03/13/17 at 12:00 MINA CALI Mar 14, 2017 14:04
--- NOTE | 2017-03-14 14:06 | PN ---
DATE: 03/14/2017 Postoperative day #9 The patient remains afebrile throughout and symptomatically improved. His drainage is down to 130 mL; however, it is much less bilious. The abdominal examination is benign. LABORATORY DATA: Hematocrit is 27.4 with a white count of 10,800 without left shift. IMPRESSION: Continued improvement. PLAN: Continue medical management. Dictated By: FRACISCO GREENE/ROXANNE Conf#: [id number] DID#: [id number] MTDD
[2017-03-14] MEDS ORDERED: MAGNESIUM SULFATE 3 GM in SOD CHLORIDE 0.9% 100 ML IVPB ONE (16:00)
[2017-03-14 19:56] VITALS: BP 154/72; RESP 20
--- NOTE | 2017-03-14 22:57 | CONS ---
Date/Time of Note Date/Time of Note DATE: 03/14/17 TIME: 22:56 Assessment/Plan Assessment/Plan Chief Complaint/Hosp Course Anemia, likely secondary to iron deficiency, with a history of gastrointestinal bleed in the past requiring blood transfusion. Hemoglobin stable. Leukocytosis, likely secondary to gallstone pancreatitis THROMBOCYTOSIS- REACTIVE CONT TO MONITOR Gallstone pancreatitis. Abdominal pain, most likely secondary to above.. Chronic kidney disease. History of gout. History of hypertension, blood pressure within acceptable range. 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 Problems: Consultation Date/Type/Reason Admit Date/Time March 01, 2017 at 05:46 Initial Consult Date 03/01/17 [facility] Referring Provider: MAGNOLIA PIERRE MD 24 HR Interval Summary Free Text/Dictation no acute events overnight. Exam/Review of Systems Vital Signs Vitals Vital Signs Date Time Temp Pulse Resp B/P Pulse Ox O2 Delivery O2 Flow Rate FiO2 03/14/17 19:56 99.1 94 20 154/72 99 03/14/17 16:39 2.0 03/14/17 09:24 Nasal Cannula 03/10/17 21:26 40 Intake and Output 03/13/17 03/13/17 03/14/17 15:00 23:00 07:00 Intake Total 1300 ml 1350 ml Output Total 590 ml 1140 ml Balance 710 ml 210 ml Exam Exam Constitutional: alert, oriented, NAD Head: atraumatic, normocephalic Eyes: EOMI, PERRL, nl conjunctiva, nl lids, nl sclera ENMT: nl external ears & nose, nl lips & teeth, nl nasal mucosa & septum Neck: non-tender, supple Respiratory: + right side wheezing Cardiovascular: nl pulses, regular rate and rhythm Gastrointestinal: bowel sounds, hepatomegaly, soft, tender (Mild tenderness near incision sites), No ascites, No distended, No mass, + drain in place Musculoskeletal: nl extremities to inspection Extremities: normal pulses Results Result Diagram: 03/14/17 0730 03/14/17 0449 Results 24 hrs Laboratory Tests Test 03/14/17 04:49 03/14/17 07:30 03/14/17 14:05 Sodium Level 135 Potassium Level 3.7 Chloride Level 109 Carbon Dioxide Level 17 L Anion Gap 13 Blood Urea Nitrogen 8 Creatinine 1.28 H Glucose Level 81 Calcium Level 7.9 L Phosphorus Level 2.7 Magnesium Level 0.8 *L 1.1 L White Blood Count 10.8 Red Blood Count 3.14 L Hemoglobin 9.2 L Hematocrit 27.4 L Mean Corpuscular Volume 87.3 Mean Corpuscular Hemoglobin 29.3 Mean Corpuscular Hemoglobin Concent 33.6 Red Cell Distribution Width 15.9 H Platelet Count 538 H Mean Platelet Volume 9.5 Neutrophils % 76.4 Lymphocytes % 14.8 L Monocytes % 7.1 Eosinophils % 0.7 Basophils % 0.2 Nucleated Red Blood Cells % 0.0 Neutrophils # 8.3 H Lymphocytes # 1.6 Monocytes # 0.8 Eosinophils # 0.1 Basophils # 0.0 Nucleated Red Blood Cells # 0.0 Medications Medications Current Medications Ondansetron HCl (Zofran Inj) 4 mg Q6H PRN IV N/V Last administered on 03/04/17 09:39; Admin Dose 4 MG; Start 03/01/17 at 08:00 Allopurinol (Zyloprim) 100 mg BID PO Last administered on 03/14/17 20:32; Admin Dose 100 MG; Start 03/01/17 at 21:00 Enalapril Maleate (Vasotec) 10 mg DAILY PO Last administered on 03/14/17 12:28 ; Admin Dose 10 MG; Start 03/02/17 at 09:00 Metoprolol Tartrate (Lopressor) 25 mg DAILY PO Last administered on 03/14/17 09:43; Admin Dose 25 MG; Start 03/02/17 at 09:00 Pantoprazole (Protonix Iv) 40 mg BID@18 IV Last administered on 03/14/17 18 :05; Admin Dose 40 MG; Start 03/04/17 at 18:00 Morphine Sulfate (morphine) 2 mg Q3H PRN IV pain Last administered on 03/12/17 06:51; Admin Dose 2 MG; Start 03/08/17 at 18:00 Acetaminophen/ Hydrocodone Bitart ([place] (5/325)) 1 tab Q4H PRN PO PAIN LEVEL 7 -10 Last administered on 03/14/17 05:48; Admin Dose 1 TAB; Start 03/08/17 at 15: 30 Acetaminophen (Tylenol Tab) 650 mg Q6H PRN PO PAIN AND OR ELEVATED TEMP Last administered on 03/11/17 17:49; Admin Dose 650 MG; Start 03/08/17 at 23:30 Tramadol HCl (Ultram) 50 mg Q6H PRN PO PAIN Last administered on 03/09/17 11:47 ; Admin Dose 50 MG; Start 03/08/17 at 23:30 Sucralfate 1 gm 1 gm QID PO Last administered on 03/14/17 20:32; Admin Dose 1 GM; Start 03/10/17 at 21:00 Sodium Chloride (1/2 NS) 1,000 ml @ 75 mls/hr [id number] IV Last administered on 03/14/17 05:48; Admin Dose 75 MLS/HR; Start 03/11/17 at 12:30 Levofloxacin (Levaquin) 750 mg Q48H PO Last administered on 03/13/17 13:36; Admin Dose 750 MG; Start 03/13/17 at 12:00 NARAYAN FERNÁNDEZ MD Mar 14, 2017 22:57
[2017-03-15] MEDS: PANTOPRAZOLE 40 MG INJ IV SCH ×2 (05:39→17:38)
[2017-03-15 05:48] LABS: ADD SCAN DIFF NO
[2017-03-15 06:07] LABS: BASOPHILS % 0.3 % (0.0-2.0); EOSINOPHILS # 0.4 10^3/ul (0.0-0.5); EOSINOPHILS % 3.9 % (0.0-7.0); HEMOGLOBIN 8.5 g/dl (14.0-18.0); LYMPHOCYTES # 1.7 10^3/ul (0.8-2.9); LYMPHOCYTES % 18.4 % (15.0-51.0); MEAN CORPUSCULAR HEMOGLOBIN 29.3 pg (29.0-33.0); MEAN CORPUSCULAR VOLUME 86.2 fl (82.0-101.0); MEAN PLATELET VOLUME 9.8 fl (7.4-10.4); MONOCYTE # 0.7 10^3/ul (0.3-0.9); MONOCYTES % 7.3 % (0.0-11.0); NEUTROPHIL # 6.2 10^3/ul (1.6-7.5); NEUTROPHILS % 69.1 % (39.0-77.0); PLATELET COUNT 486 10^3/UL (140-415)
[2017-03-15 06:16] LABS: MAGNESIUM 1.8 mg/dl (1.7-2.5); PHOSPHORUS 2.9 mg/dl (2.5-4.9)
[2017-03-15 06:19] LABS: CALCIUM 8.1 mg/dl (8.4-10.2); CREATININE 1.14 mg/dl (0.61-1.24); POTASSIUM 3.6 mmol/L (3.5-5.1)
[2017-03-15 07:49] VITALS: BP 138/61; RESP 22
[2017-03-15] MEDS: SUCRALFATE (100 MG/ML) 10ML CUP PO SCH ×4 (08:56→21:39)
[2017-03-15] MEDS: ALLOPURINOL 100 MG TAB PO SCH ×2 (08:57→21:39)
[2017-03-15] MEDS: ENALAPRIL 10 MG TAB PO SCH (08:57)
[2017-03-15] MEDS: METOPROLOL 25 MG TAB PO SCH (08:57)
[2017-03-15] MEDS: LEVOFLOXACIN 750 MG TABLET PO SCH (12:29)
[2017-03-15] MEDS: SOD CHLORIDE 0.45% 1,000 ML IV SCH (12:30)
[2017-03-15 16:15] VITALS: BP 117/61; PULSE 86
[2017-03-15] MEDS: ACETAMINOPHEN 325 MG TAB PO PRN (16:19)
--- NOTE | 2017-03-15 17:27 | PN ---
Date/Time of Note Date/Time of Note DATE: 03/15/17 TIME: 17:23 Assessment/Plan VTE Prophylaxis VTE Prophylaxis Intervention: SCD's Lines/Catheters [facility] (from [facility] Peripheral IV Urinary Cath still in place: No Assessment/Plan Assessment/Plan 1. gallstone pancreatitis: sp lap ashleigh POD # 9, again, with subsequent bile leak, s/p ERCP 3 days ago with biliary stent placement. SHANTE drainage has diminished to 100 mL over the last 24 hours, but is still bilious. -d/c IV Fluids, abx switched to PO, pt still has SHANTE drain in place 2. HTN: stable- cont home meds 3. gout flare: slowly improving - cont colchicine course (started 6.3). - Also cont home allopurinol 4. diet: started on PO diet, tolerating so far 5. DVT prophx: SCDs 6. dispo: as per gen surg, PT Subjective 24 Hr Interval Summary Free Text/Dictation still has SHANTE drain in palce, BP stable, tolerating po diet today Exam/Review of Systems Vital Signs Vitals Vital Signs Date Time Temp Pulse Resp B/P Pulse Ox O2 Delivery O2 Flow Rate FiO2 03/15/17 16:15 86 117/61 99 2.0 03/15/17 11:03 Nasal Cannula 03/15/17 07:49 98.1 22 Intake and Output 03/14/17 03/14/17 03/15/17 15:00 23:00 07:00 Intake Total 100 ml 2466 ml 1020 ml Output Total 830 ml 846 ml Balance 100 ml 1636 ml 174 ml Exam Constitutional: alert, oriented, NAD Head: atraumatic, normocephalic Eyes: EOMI, PERRL, nl conjunctiva, nl lids, nl sclera ENMT: nl external ears & nose, nl lips & teeth, nl nasal mucosa & septum Neck: non-tender, supple Respiratory: + right side wheezing Cardiovascular: nl pulses, regular rate and rhythm Gastrointestinal: bowel sounds, hepatomegaly, soft, tender (Mild tenderness near incision sites), No ascites, No distended, No mass, + drain in place Musculoskeletal: nl extremities to inspection Extremities: normal pulses Results Result Diagram: 03/15/17 0445 03/15/175 Results 24 hrs Laboratory Tests Test 03/15/17 04:45 White Blood Count 9.0 Red Blood Count 2.90 L Hemoglobin 8.5 L Hematocrit 25.0 L Mean Corpuscular Volume 86.2 Mean Corpuscular Hemoglobin 29.3 Mean Corpuscular Hemoglobin Concent 34.0 Red Cell Distribution Width 16.0 H Platelet Count 486 H Mean Platelet Volume 9.8 Neutrophils % 69.1 Lymphocytes % 18.4 Monocytes % 7.3 Eosinophils % 3.9 Basophils % 0.3 Nucleated Red Blood Cells % 0.0 Neutrophils # 6.2 Lymphocytes # 1.7 Monocytes # 0.7 Eosinophils # 0.4 Basophils # 0.0 Nucleated Red Blood Cells # 0.0 Sodium Level 135 Potassium Level 3.6 Chloride Level 107 Carbon Dioxide Level 19 L Anion Gap 13 Blood Urea Nitrogen 7 Creatinine 1.14 Glucose Level 87 Calcium Level 8.1 L Phosphorus Level 2.9 Magnesium Level 1.8 Medications Medications Current Medications Ondansetron HCl (Zofran Inj) 4 mg Q6H PRN IV N/V Last administered on 03/04/17 09:39; Admin Dose 4 MG; Start 03/01/17 at 08:00 Allopurinol (Zyloprim) 100 mg BID PO Last administered on 03/15/17 08:57; Admin Dose 100 MG; Start 03/01/17 at 21:00 Enalapril Maleate (Vasotec) 10 mg DAILY PO Last administered on 03/15/17 08:57 ; Admin Dose 10 MG; Start 03/02/17 at 09:00 Metoprolol Tartrate (Lopressor) 25 mg DAILY PO Last administered on 03/15/17 08:57; Admin Dose 25 MG; Start 03/02/17 at 09:00 Pantoprazole (Protonix Iv) 40 mg BID@,18 IV Last administered on 03/15/17 05 :39; Admin Dose 40 MG; Start 03/04/17 at 18:00 Morphine Sulfate (morphine) 2 mg Q3H PRN IV pain Last administered on 03/12/17 06:51; Admin Dose 2 MG; Start 03/08/17 at 18:00 Acetaminophen/ Hydrocodone Bitart ([place] (5/325)) 1 tab Q4H PRN PO PAIN LEVEL 7 -10 Last administered on 03/14/17 05:48; Admin Dose 1 TAB; Start 03/08/17 at 15: 30 Acetaminophen (Tylenol Tab) 650 mg Q6H PRN PO PAIN AND OR ELEVATED TEMP Last administered on 03/15/17 16:19; Admin Dose 650 MG; Start 03/08/17 at 23:30 Tramadol HCl (Ultram) 50 mg Q6H PRN PO PAIN Last administered on 03/09/17 11:47 ; Admin Dose 50 MG; Start 03/08/17 at 23:30 Sucralfate 1 gm 1 gm QID PO Last administered on 03/15/17 12:29; Admin Dose 1 GM; Start 03/10/17 at 21:00 Sodium Chloride (1/2 NS) 1,000 ml @ 75 mls/hr [id number] IV Last administered on 03/15/17 12:30; Admin Dose 75 MLS/HR; Start 03/11/17 at 12:30 Levofloxacin (Levaquin) 750 mg Q48H PO Last administered on 03/15/17 12:29; Admin Dose 750 MG; Start 03/13/17 at 12:00 LAURIE AHN MD Mar 15, 2017 17:27
[2017-03-15] MEDS ORDERED: morphine 2 MG INJ IV PRN (19:00)
[2017-03-15 19:27] VITALS: BP 153/72; RESP 18
--- NOTE | 2017-03-15 21:30 | NUCRPT ---
DATE OF SERVICE: 03/15/2017 The patient continues to be asymptomatic. His white count has come down to 9,000. His hematocrit i s down to 25. There is no left shift. His SHANTE drainage is 125 and mostly serous. IMPRESSION AND PLAN: Continue medical therapy. We should be able to remove the SHANTE drain tomorrow a nd discharge home with p.o. antibiotics. Dictated By: FRACISCO GREENE/ROXANNE Conf#: [id number] DID#: [id number]
--- NOTE | 2017-03-15 22:00 | CONS ---
Date/Time of Note Date/Time of Note DATE: 03/15/17 TIME: 21:58 Assessment/Plan Assessment/Plan Chief Complaint/Hosp Course Anemia, likely secondary to iron deficiency, with a history of gastrointestinal bleed in the past requiring blood transfusion. Hemoglobin DOWN TODAY MONITOR FOR BLEEDING Leukocytosis, likely secondary to gallstone pancreatitis THROMBOCYTOSIS- REACTIVE CONT TO MONITOR Gallstone pancreatitis. Abdominal pain, most likely secondary to above.. Chronic kidney disease. History of gout. History of hypertension, blood pressure within acceptable range. 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 Problems: Consultation Date/Type/Reason Admit Date/Time March 01, 2017 at 05:46 Initial Consult Date 03/01/17 Type of Consultation: HEMEON Referring Provider: MAGNOLIA PIERRE MD 24 HR Interval Summary Free Text/Dictation still has SHANTE drain in palce, BP stable, tolerating po diet today h/h- down no bleeding Exam/Review of Systems Vital Signs Vitals Vital Signs Date Time Temp Pulse Resp B/P Pulse Ox O2 Delivery O2 Flow Rate FiO2 03/15/17 19:27 98.0 73 18 153/72 99 03/15/17 16:15 2.0 03/15/17 11:03 Nasal Cannula Intake and Output 03/14/17 03/14/17 03/15/17 15:00 23:00 07:00 Intake Total 100 ml 2466 ml 1020 ml Output Total 830 ml 846 ml Balance 100 ml 1636 ml 174 ml Exam Constitutional: alert, oriented, NAD Head: atraumatic, normocephalic Eyes: EOMI, PERRL, nl conjunctiva, nl lids, nl sclera ENMT: nl external ears & nose, nl lips & teeth, nl nasal mucosa & septum Neck: non-tender, supple Respiratory: + right side wheezing Cardiovascular: nl pulses, regular rate and rhythm Gastrointestinal: bowel sounds, hepatomegaly, soft, tender (Mild tenderness near incision sites), No ascites, No distended, No mass, + drain in place Musculoskeletal: nl extremities to inspection Extremities: normal pulses Results Result Diagram: 03/15/17 0445 03/15/17 0445 Results 24 hrs Laboratory Tests Test 03/15/17 04:45 White Blood Count 9.0 Red Blood Count 2.90 L Hemoglobin 8.5 L Hematocrit 25.0 L Mean Corpuscular Volume 86.2 Mean Corpuscular Hemoglobin 29.3 Mean Corpuscular Hemoglobin Concent 34.0 Red Cell Distribution Width 16.0 H Platelet Count 486 H Mean Platelet Volume 9.8 Neutrophils % 69.1 Lymphocytes % 18.4 Monocytes % 7.3 Eosinophils % 3.9 Basophils % 0.3 Nucleated Red Blood Cells % 0.0 Neutrophils # 6.2 Lymphocytes # 1.7 Monocytes # 0.7 Eosinophils # 0.4 Basophils # 0.0 Nucleated Red Blood Cells # 0.0 Sodium Level 135 Potassium Level 3.6 Chloride Level 107 Carbon Dioxide Level 19 L Anion Gap 13 Blood Urea Nitrogen 7 Creatinine 1.14 Glucose Level 87 Calcium Level 8.1 L Phosphorus Level 2.9 Magnesium Level 1.8 Medications Medications Current Medications Ondansetron HCl (Zofran Inj) 4 mg Q6H PRN IV N/V Last administered on 03/04/17 09:39; Admin Dose 4 MG; Start 03/01/17 at 08:00 Allopurinol (Zyloprim) 100 mg BID PO Last administered on 03/15/17 21:39; Admin Dose 100 MG; Start 03/01/17 at 21:00 Enalapril Maleate (Vasotec) 10 mg DAILY PO Last administered on 03/15/17 08:57 ; Admin Dose 10 MG; Start 03/02/17 at 09:00 Metoprolol Tartrate (Lopressor) 25 mg DAILY PO Last administered on 03/15/17 08:57; Admin Dose 25 MG; Start 03/02/17 at 09:00 Pantoprazole (Protonix Iv) 40 mg BID@,18 IV Last administered on 03/15/17 17 :38; Admin Dose 40 MG; Start 03/04/17 at 18:00 Acetaminophen/ Hydrocodone Bitart ([place] (5/325)) 1 tab Q4H PRN PO PAIN LEVEL 7 -10 Last administered on 03/14/17 05:48; Admin Dose 1 TAB; Start 03/08/17 at 15: 30 Acetaminophen (Tylenol Tab) 650 mg Q6H PRN PO PAIN AND OR ELEVATED TEMP Last administered on 03/15/17 16:19; Admin Dose 650 MG; Start 03/08/17 at 23:30 Tramadol HCl (Ultram) 50 mg Q6H PRN PO PAIN Last administered on 03/09/17 11:47 ; Admin Dose 50 MG; Start 03/08/17 at 23:30 Sucralfate (Carafate Susp) 1 gm QID PO Last administered on 03/15/17 21:39; Admin Dose 1 GM; Start 03/10/17 at 21:00 Levofloxacin (Levaquin) 750 mg Q48H PO Last administered on 03/15/17 12:29; Admin Dose 750 MG; Start 03/13/17 at 12:00 Morphine Sulfate (morphine) 2 mg Q4H PRN IV severe pain ; Start 03/15/17 at 19: 00 NARAYAN FERNÁNDEZ MD Mar 15, 2017 22:00
[2017-03-16] MEDS: PANTOPRAZOLE 40 MG INJ IV SCH ×2 (05:19→18:39)
[2017-03-16 05:45] LABS: ADD SCAN DIFF NO
[2017-03-16 05:54] LABS: BASOPHILS % 0.3 % (0.0-2.0); EOSINOPHILS # 0.3 10^3/ul (0.0-0.5); EOSINOPHILS % 2.8 % (0.0-7.0); HEMATOCRIT 29.4 % (42.0-52.0); HEMOGLOBIN 9.8 g/dl (14.0-18.0); LYMPHOCYTES % 26.3 % (15.0-51.0); MEAN CORPUSCULAR HEMOGLOBIN 28.6 pg (29.0-33.0); MEAN CORPUSCULAR HGB CONC 33.3 g/dl (32.0-37.0); MEAN CORPUSCULAR VOLUME 85.7 fl (82.0-101.0); MEAN PLATELET VOLUME 9.7 fl (7.4-10.4); MONOCYTE # 0.7 10^3/ul (0.3-0.9); MONOCYTES % 6.2 % (0.0-11.0); NEUTROPHIL # 7.1 10^3/ul (1.6-7.5); NEUTROPHILS % 63.5 % (39.0-77.0); PLATELET COUNT 591 10^3/UL (140-415); RED BLOOD COUNT 3.43 10^6/ul (4.70-6.10); WHITE BLOOD COUNT 11.2 10^3/ul (4.8-10.8)
[2017-03-16 06:48] LABS: BILIRUBIN,INDIRECT 0.2 mg/dl (0-1.1); BILIRUBIN,TOTAL 0.2 mg/dl (0.2-1.3); CALCIUM 8.8 mg/dl (8.4-10.2); CREATININE 1.14 mg/dl (0.61-1.24)
[2017-03-16 08:31] VITALS: BP 135/79; RESP 16
[2017-03-16] MEDS: ENALAPRIL 10 MG TAB PO SCH (09:05)
[2017-03-16] MEDS: SUCRALFATE (100 MG/ML) 10ML CUP PO SCH ×4 (09:05→22:09)
[2017-03-16] MEDS: ALLOPURINOL 100 MG TAB PO SCH ×2 (09:05→22:09)
[2017-03-16] MEDS: METOPROLOL 25 MG TAB PO SCH (09:06)
[2017-03-16] MEDS: ACETAMINOPHEN 325 MG TAB PO PRN ×2 (09:09→14:18)
--- NOTE | 2017-03-16 10:32 | PN ---
DATE: 03/16/2017 SURGERY PROGRESS NOTE The patient continues to do well. His SHANTE drainage has diminished to 90 mL and is almost entirely se sepideh. His abdominal examination is benign. His white count is slightly elevated today at 11,200. IMPRESSION: Continued improvement. PLAN: We will consider removing SHANTE drain in the next day or so and patient can then be discharged. Dictated By: FRACISCO GREENE/ROXANNE Conf#: [id number] DID#: [id number]
--- NOTE | 2017-03-16 13:57 | PN ---
Date/Time of Note Date/Time of Note DATE: 03/16/17 TIME: 13:53 Assessment/Plan VTE Prophylaxis VTE Prophylaxis Intervention: SCD's Lines/Catheters [facility] Saline Lock Urinary Cath still in place: No Assessment/Plan Assessment/Plan Assessment * Bile leak improved ERCP with placement of biliary stent * S/P laparoscopic cholecystectomy * Duodenal ulcer Plan * continue present management * continue monitoring Selwyn Webb drain * Follow up after 3 months for removal of biliary stent * Case was discussed with Dr Burgess * Further orders will depend on clinical course Subjective 24 Hr Interval Summary Free Text/Dictation * Course reviewed with RN * Patient seen and examined * no abdominal pain,tolerating diet * Selwyn Webb drain Exam/Review of Systems Vital Signs Vitals Vital Signs Date Time Temp Pulse Resp B/P Pulse Ox O2 Delivery O2 Flow Rate FiO2 03/16/17 08:31 98.6 106 16 135/79 94 03/16/17 02:29 2.0 03/15/17 20:00 Nasal Cannula Intake and Output 03/15/17 03/15/17 03/16/17 15:00 23:00 07:00 Intake Total 880 ml 1955 ml Output Total 340 ml 50 ml Balance 880 ml 1615 ml -50 ml Exam Constitutional: alert, frail Neck: non-tender, supple Respiratory: clear to auscultation, normal air movement Cardiovascular: nl pulses, regular rate and rhythm Gastrointestinal: bowel sounds, non-tender, soft, No rebound or guarding Musculoskeletal: nl extremities to inspection Skin: nl turgor Lymph: nl lymph nodes Results Result Diagram: 03/16/17 0504 03/16/17 0504 Results 24 hrs Laboratory Tests Test 03/16/17 05:04 White Blood Count 11.2 #H Red Blood Count 3.43 L Hemoglobin 9.8 L Hematocrit 29.4 L Mean Corpuscular Volume 85.7 Mean Corpuscular Hemoglobin 28.6 L Mean Corpuscular Hemoglobin Concent 33.3 Red Cell Distribution Width 16.0 H Platelet Count 591 #H Mean Platelet Volume 9.7 Neutrophils % 63.5 Lymphocytes % 26.3 Monocytes % 6.2 Eosinophils % 2.8 Basophils % 0.3 Nucleated Red Blood Cells % 0.0 Neutrophils # 7.1 Lymphocytes # 3.0 H Monocytes # 0.7 Eosinophils # 0.3 Basophils # 0.0 Nucleated Red Blood Cells # 0.0 Sodium Level 134 L Potassium Level 4.0 Chloride Level 104 Carbon Dioxide Level 20 L Anion Gap 14 Blood Urea Nitrogen 7 Creatinine 1.14 Glucose Level 77 Calcium Level 8.8 Total Bilirubin 0.2 Direct Bilirubin 0.00 Indirect Bilirubin 0.2 Aspartate Amino Transf (AST/SGOT) 28 Alanine Aminotransferase (ALT/SGPT) 28 Alkaline Phosphatase 116 Total Protein 6.0 L Albumin 3.0 L Globulin 3.00 Albumin/Globulin Ratio 1.00 Medications Medications Current Medications Ondansetron HCl (Zofran Inj) 4 mg Q6H PRN IV N/V Last administered on 03/04/17 09:39; Admin Dose 4 MG; Start 03/01/17 at 08:00 Allopurinol (Zyloprim) 100 mg BID PO Last administered on 03/16/17 09:05; Admin Dose 100 MG; Start 03/01/17 at 21:00 Enalapril Maleate (Vasotec) 10 mg DAILY PO Last administered on 03/16/17 09:05 ; Admin Dose 10 MG; Start 03/02/17 at 09:00 Metoprolol Tartrate (Lopressor) 25 mg DAILY PO Last administered on 03/16/17 09:06; Admin Dose 25 MG; Start 03/02/17 at 09:00 Pantoprazole (Protonix Iv) 40 mg BID@,18 IV Last administered on 03/16/17 05 :19; Admin Dose 40 MG; Start 03/04/17 at 18:00 Acetaminophen/ Hydrocodone Bitart ([place] (5/325)) 1 tab Q4H PRN PO PAIN LEVEL 7 -10 Last administered on 03/14/17 05:48; Admin Dose 1 TAB; Start 03/08/17 at 15: 30 Acetaminophen (Tylenol Tab) 650 mg Q6H PRN PO PAIN AND OR ELEVATED TEMP Last administered on 03/16/17 09:09; Admin Dose 650 MG; Start 03/08/17 at 23:30 Tramadol HCl (Ultram) 50 mg Q6H PRN PO PAIN Last administered on 03/09/17 11:47 ; Admin Dose 50 MG; Start 03/08/17 at 23:30 Sucralfate (Carafate Susp) 1 gm QID PO Last administered on 6/13/17at 09:05; Admin Dose 1 GM; Start 03/10/17 at 21:00 Levofloxacin (Levaquin) 750 mg Q48H PO Last administered on 03/15/17t 12:29; Admin Dose 750 MG; Start 03/13/17 at 12:00 Morphine Sulfate (morphine) 2 mg Q4H PRN IV severe pain ; Start 03/15/17 at 19: 00 FIDE CORDOVA NP Mar 16, 2017 13:57
[2017-03-16 20:00] VITALS: BP 123/64; RESP 18
--- NOTE | 2017-03-16 20:39 | CONS ---
Date/Time of Note Date/Time of Note DATE: 03/16/17 TIME: 20:38 Assessment/Plan Assessment/Plan Chief Complaint/Hosp Course Anemia, likely secondary to iron deficiency, with a history of gastrointestinal bleed in the past requiring blood transfusion. Hemoglobin DOWN TODAY MONITOR FOR BLEEDING Leukocytosis, likely secondary to gallstone pancreatitis THROMBOCYTOSIS- REACTIVE CONT TO MONITOR Gallstone pancreatitis. Abdominal pain, most likely secondary to above.. Chronic kidney disease. History of gout. History of hypertension, blood pressure within acceptable range. 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 Problems: Consultation Date/Type/Reason Admit Date/Time March 01, 2017 at 05:46 Initial Consult Date 03/01/17 Type of Consultation: HEMEON Referring Provider: MAGNOLIA PIERRE MD 24 HR Interval Summary Free Text/Dictation Bile leak improved ERCP with placement of biliary stent Exam/Review of Systems Vital Signs Vitals Vital Signs Date Time Temp Pulse Resp B/P Pulse Ox O2 Delivery O2 Flow Rate FiO2 03/16/17 19:44 2.0 03/16/17 08:31 98.6 106 16 135/79 94 03/15/17 20:00 Nasal Cannula Intake and Output 03/15/17 03/15/17 03/16/17 15:00 23:00 07:00 Intake Total 880 ml 1955 ml Output Total 340 ml 50 ml Balance 880 ml 1615 ml -50 ml Exam Constitutional: alert, oriented, NAD Head: atraumatic, normocephalic Eyes: EOMI, PERRL, nl conjunctiva, nl lids, nl sclera ENMT: nl external ears & nose, nl lips & teeth, nl nasal mucosa & septum Neck: non-tender, supple Respiratory: + right side wheezing Cardiovascular: nl pulses, regular rate and rhythm Gastrointestinal: bowel sounds, hepatomegaly, soft, tender (Mild tenderness near incision sites), No ascites, No distended, No mass, + drain in place Musculoskeletal: nl extremities to inspection Extremities: normal pulses Results Result Diagram: 03/16/17 0504 03/16/17 0504 Results 24 hrs Laboratory Tests Test 03/16/17 05:04 White Blood Count 11.2 #H Red Blood Count 3.43 L Hemoglobin 9.8 L Hematocrit 29.4 L Mean Corpuscular Volume 85.7 Mean Corpuscular Hemoglobin 28.6 L Mean Corpuscular Hemoglobin Concent 33.3 Red Cell Distribution Width 16.0 H Platelet Count 591 #H Mean Platelet Volume 9.7 Neutrophils % 63.5 Lymphocytes % 26.3 Monocytes % 6.2 Eosinophils % 2.8 Basophils % 0.3 Nucleated Red Blood Cells % 0.0 Neutrophils # 7.1 Lymphocytes # 3.0 H Monocytes # 0.7 Eosinophils # 0.3 Basophils # 0.0 Nucleated Red Blood Cells # 0.0 Sodium Level 134 L Potassium Level 4.0 Chloride Level 104 Carbon Dioxide Level 20 L Anion Gap 14 Blood Urea Nitrogen 7 Creatinine 1.14 Glucose Level 77 Calcium Level 8.8 Total Bilirubin 0.2 Direct Bilirubin 0.00 Indirect Bilirubin 0.2 Aspartate Amino Transf (AST/SGOT) 28 Alanine Aminotransferase (ALT/SGPT) 28 Alkaline Phosphatase 116 Total Protein 6.0 L Albumin 3.0 L Globulin 3.00 Albumin/Globulin Ratio 1.00 Medications Medications Current Medications Ondansetron HCl (Zofran Inj) 4 mg Q6H PRN IV N/V Last administered on 03/04/17 09:39; Admin Dose 4 MG; Start 03/01/17 at 08:00 Allopurinol (Zyloprim) 100 mg BID PO Last administered on 03/16/17 09:05; Admin Dose 100 MG; Start 03/01/17 at 21:00 Enalapril Maleate (Vasotec) 10 mg DAILY PO Last administered on 03/16/17 09:05 ; Admin Dose 10 MG; Start 03/02/17 at 09:00 Metoprolol Tartrate (Lopressor) 25 mg DAILY PO Last administered on 03/16/17 09:06; Admin Dose 25 MG; Start 03/02/17 at 09:00 Pantoprazole (Protonix Iv) 40 mg BID@ IV Last administered on 03/16/17 18 :39; Admin Dose 40 MG; Start 03/04/17 at 18:00 Acetaminophen/ Hydrocodone Bitart ([place] (5/325)) 1 tab Q4H PRN PO PAIN LEVEL 7 -10 Last administered on 03/14/17 05:48; Admin Dose 1 TAB; Start 03/08/17 at 15: 30 Acetaminophen (Tylenol Tab) 650 mg Q6H PRN PO PAIN AND OR ELEVATED TEMP Last administered on 03/16/17 14:18; Admin Dose 650 MG; Start 03/08/17 at 23:30 Tramadol HCl (Ultram) 50 mg Q6H PRN PO PAIN Last administered on 03/09/17 11:47 ; Admin Dose 50 MG; Start 03/08/17 at 23:30 Sucralfate (Carafate Susp) 1 gm QID PO Last administered on 03/16/17 18:39; Admin Dose 1 GM; Start 03/10/17 at 21:00 Levofloxacin (Levaquin) 750 mg Q48H PO Last administered on 03/15/17 12:29; Admin Dose 750 MG; Start 03/13/17 at 12:00 Morphine Sulfate (morphine) 2 mg Q4H PRN IV severe pain ; Start 03/15/17 at 19: 00 NARAYAN FERNÁNDEZ MD Mar 16, 2017 20:39
--- NOTE | 2017-03-16 20:57 | PN ---
Date/Time of Note Date/Time of Note DATE: 03/16/17 TIME: 20:55 Assessment/Plan VTE Prophylaxis VTE Prophylaxis Intervention: SCD's Lines/Catheters IV Catheter Type (from [facility] [place]): Saline Lock Urinary Cath still in place: No Assessment/Plan Assessment/Plan 1. gallstone pancreatitis: sp lap ashleigh , with subsequent bile leak, s/p ERCP 3 days ago with biliary stent placement. SHANTE drainage has diminished to 100 mL over the last 24 hours, but is still bilious. SHANTE drain in place, plan is to remove in next 1-2 days as per surgery note 2. HTN: stable- cont home meds 3. gout flare: slowly improving - cont colchicine course (started 6.3). - Also cont home allopurinol 4. diet: started on PO diet, tolerating so far 5. DVT prophx: SCDs 6. dispo: as per gen surg, PT Subjective 24 Hr Interval Summary Free Text/Dictation s/p G surg follow up , Plan is to remove SHANTE drain in next 1-2 days Exam/Review of Systems Vital Signs Vitals Vital Signs Date Time Temp Pulse Resp B/P Pulse Ox O2 Delivery O2 Flow Rate FiO2 03/16/17 19:44 2.0 03/16/17 08:31 98.6 106 16 135/79 94 03/15/17 20:00 Nasal Cannula Intake and Output 03/15/17 03/15/17 03/16/17 15:00 23:00 07:00 Intake Total 880 ml 1955 ml Output Total 340 ml 50 ml Balance 880 ml 1615 ml -50 ml Exam Constitutional: alert, oriented, NAD Head: atraumatic, normocephalic Eyes: EOMI, PERRL, nl conjunctiva, nl lids, nl sclera ENMT: nl external ears & nose, nl lips & teeth, nl nasal mucosa & septum Neck: non-tender, supple Respiratory: + right side wheezing Cardiovascular: nl pulses, regular rate and rhythm Gastrointestinal: bowel sounds, hepatomegaly, soft, tender (Mild tenderness near incision sites), No ascites, No distended, No mass, + drain in place Musculoskeletal: nl extremities to inspection Extremities: normal pulses Results Result Diagram: 03/16/17 0504 03/16/17 0504 Results 24 hrs Laboratory Tests Test 03/16/17 05:04 White Blood Count 11.2 #H Red Blood Count 3.43 L Hemoglobin 9.8 L Hematocrit 29.4 L Mean Corpuscular Volume 85.7 Mean Corpuscular Hemoglobin 28.6 L Mean Corpuscular Hemoglobin Concent 33.3 Red Cell Distribution Width 16.0 H Platelet Count 591 #H Mean Platelet Volume 9.7 Neutrophils % 63.5 Lymphocytes % 26.3 Monocytes % 6.2 Eosinophils % 2.8 Basophils % 0.3 Nucleated Red Blood Cells % 0.0 Neutrophils # 7.1 Lymphocytes # 3.0 H Monocytes # 0.7 Eosinophils # 0.3 Basophils # 0.0 Nucleated Red Blood Cells # 0.0 Sodium Level 134 L Potassium Level 4.0 Chloride Level 104 Carbon Dioxide Level 20 L Anion Gap 14 Blood Urea Nitrogen 7 Creatinine 1.14 Glucose Level 77 Calcium Level 8.8 Total Bilirubin 0.2 Direct Bilirubin 0.00 Indirect Bilirubin 0.2 Aspartate Amino Transf (AST/SGOT) 28 Alanine Aminotransferase (ALT/SGPT) 28 Alkaline Phosphatase 116 Total Protein 6.0 L Albumin 3.0 L Globulin 3.00 Albumin/Globulin Ratio 1.00 Medications Medications Current Medications Ondansetron HCl (Zofran Inj) 4 mg Q6H PRN IV N/V Last administered on 03/04/17 09:39; Admin Dose 4 MG; Start 03/01/17 at 08:00 Allopurinol (Zyloprim) 100 mg BID PO Last administered on 03/16/17 09:05; Admin Dose 100 MG; Start 03/01/17 at 21:00 Enalapril Maleate (Vasotec) 10 mg DAILY PO Last administered on 03/16/17 09:05 ; Admin Dose 10 MG; Start 03/02/17 at 09:00 Metoprolol Tartrate (Lopressor) 25 mg DAILY PO Last administered on 03/16/17 09:06; Admin Dose 25 MG; Start 03/02/17 at 09:00 Pantoprazole (Protonix Iv) 40 mg BID@ IV Last administered on 03/16/17 18 :39; Admin Dose 40 MG; Start 03/04/17 at 18:00 Acetaminophen/ Hydrocodone Bitart ([place] (5/325)) 1 tab Q4H PRN PO PAIN LEVEL 7 -10 Last administered on 03/14/17 05:48; Admin Dose 1 TAB; Start 03/08/17 at 15: 30 Acetaminophen (Tylenol Tab) 650 mg Q6H PRN PO PAIN AND OR ELEVATED TEMP Last administered on 03/16/17 14:18; Admin Dose 650 MG; Start 03/08/17 at 23:30 Tramadol HCl (Ultram) 50 mg Q6H PRN PO PAIN Last administered on 03/09/17 11:47 ; Admin Dose 50 MG; Start 03/08/17 at 23:30 Sucralfate (Carafate Susp) 1 gm QID PO Last administered on 03/16/17 18:39; Admin Dose 1 GM; Start 03/10/17 at 21:00 Levofloxacin (Levaquin) 750 mg Q48H PO Last administered on 03/15/17 12:29; Admin Dose 750 MG; Start 03/13/17 at 12:00 Morphine Sulfate (morphine) 2 mg Q4H PRN IV severe pain ; Start 03/15/17 at 19: 00 LAURIE AHN MD Mar 16, 2017 20:57
[2017-03-17] MEDS: PANTOPRAZOLE 40 MG INJ IV SCH ×2 (05:47→17:06)
[2017-03-17 06:18] LABS: ADD SCAN DIFF NO
[2017-03-17 06:30] LABS: BASOPHILS % 0.4 % (0.0-2.0); EOSINOPHILS # 0.3 10^3/ul (0.0-0.5); HEMATOCRIT 26.9 % (42.0-52.0); HEMOGLOBIN 9.1 g/dl (14.0-18.0); LYMPHOCYTES # 1.7 10^3/ul (0.8-2.9); LYMPHOCYTES % 20.3 % (15.0-51.0); MEAN CORPUSCULAR HEMOGLOBIN 29.1 pg (29.0-33.0); MEAN CORPUSCULAR HGB CONC 33.8 g/dl (32.0-37.0); MEAN CORPUSCULAR VOLUME 85.9 fl (82.0-101.0); MEAN PLATELET VOLUME 9.8 fl (7.4-10.4); MONOCYTE # 0.5 10^3/ul (0.3-0.9); MONOCYTES % 6.2 % (0.0-11.0); NEUTROPHIL # 5.8 10^3/ul (1.6-7.5); NEUTROPHILS % 69.4 % (39.0-77.0); PLATELET COUNT 580 10^3/UL (140-415); RED BLOOD COUNT 3.13 10^6/ul (4.70-6.10); RED CELL DISTRIBUTION WIDTH 16.1 % (11.5-14.5); WHITE BLOOD COUNT 8.4 10^3/ul (4.8-10.8)
[2017-03-17 07:13] LABS: INR 1.08; PT RATIO 1.1
[2017-03-17 07:14] LABS: PARTIAL THROMBOPLASTIN TIME 37.9 Sec (25.0-35.0)
[2017-03-17 07:19] LABS: CALCIUM 8.2 mg/dl (8.4-10.2); CREATININE 1.14 mg/dl (0.61-1.24); POTASSIUM 3.7 mmol/L (3.5-5.1)
[2017-03-17 07:51] VITALS: BP 123/59; RESP 24
[2017-03-17] MEDS: METOPROLOL 25 MG TAB PO SCH (08:31)
[2017-03-17] MEDS: ALLOPURINOL 100 MG TAB PO SCH ×2 (08:31→20:39)
[2017-03-17] MEDS: SUCRALFATE (100 MG/ML) 10ML CUP PO SCH ×4 (08:31→20:39)
[2017-03-17] MEDS: ENALAPRIL 10 MG TAB PO SCH (08:31)
[2017-03-17] MEDS: LEVOFLOXACIN 750 MG TABLET PO SCH (12:06)
--- NOTE | 2017-03-17 17:48 | PN ---
Date/Time of Note Date/Time of Note DATE: 03/17/17 TIME: 17:47 Assessment/Plan VTE Prophylaxis VTE Prophylaxis Intervention: SCD's Lines/Catheters IV C[facility]ter Type (from [facility]): Saline Lock Urinary Cath still in place: No Assessment/Plan Assessment/Plan 1. gallstone pancreatitis: sp lap ashleigh , with subsequent bile leak, s/p ERCP 3 days ago with biliary stent placement. SHANTE drainage has diminished to 100 mL over the last 24 hours, but is still bilious. SHANTE drain removed tody 2. HTN: stable- cont home meds 3. gout flare: slowly improving - cont colchicine course (started 6.3). - Also cont home allopurinol 4. diet: started on PO diet, tolerating so far 5. DVT prophx: SCDs D/c plan to home on if stable with his daughter, Gen surgery and [place] to let us know about follow up appointment Subjective 24 Hr Interval Summary Free Text/Dictation drain removed, pt still c/o pain and he is on oxygen Exam/Review of Systems Vital Signs Vitals Vital Signs Date Time Temp Pulse Resp B/P Pulse Ox O2 Delivery O2 Flow Rate FiO2 03/17/17 15:00 2.0 03/17/17 10:04 Nasal Cannula 03/17/17 07:51 99.1 108 24 123/59 97 Intake and Output 03/16/17 03/16/17 03/17/17 14:59 22:59 06:59 Intake Total 800 ml 840 ml 340 ml Output Total 0 ml 260 ml Balance 800 ml 840 ml 80 ml Exam Constitutional: alert, oriented, NAD Head: atraumatic, normocephalic Eyes: EOMI, PERRL, nl conjunctiva, nl lids, nl sclera ENMT: nl external ears & nose, nl lips & teeth, nl nasal mucosa & septum Neck: non-tender, supple Respiratory: + right side wheezing Cardiovascular: nl pulses, regular rate and rhythm Gastrointestinal: bowel sounds, hepatomegaly, soft, tender (Mild tenderness near incision sites), No ascites, No distended, No mass, + drain in place Musculoskeletal: nl extremities to inspection Extremities: normal pulses Results Result Diagram: 03/17/17 0510 03/17/17 0510 Results 24 hrs Laboratory Tests Test 03/17/17 05:10 White Blood Count 8.4 # Red Blood Count 3.13 L Hemoglobin 9.1 L Hematocrit 26.9 L Mean Corpuscular Volume 85.9 Mean Corpuscular Hemoglobin 29.1 Mean Corpuscular Hemoglobin Concent 33.8 Red Cell Distribution Width 16.1 H Platelet Count 580 H Mean Platelet Volume 9.8 Neutrophils % 69.4 Lymphocytes % 20.3 Monocytes % 6.2 Eosinophils % 3.0 Basophils % 0.4 Nucleated Red Blood Cells % 0.0 Neutrophils # 5.8 Lymphocytes # 1.7 Monocytes # 0.5 Eosinophils # 0.3 Basophils # 0.0 Nucleated Red Blood Cells # 0.0 Prothrombin Time 14.0 Prothrombin Time Ratio 1.1 INR International Normalized Ratio 1.08 Activated Partial Thromboplast Time 37.9 H Sodium Level 133 L Potassium Level 3.7 Chloride Level 104 Carbon Dioxide Level 21 Anion Gap 12 Blood Urea Nitrogen 8 Creatinine 1.14 Glucose Level 81 Calcium Level 8.2 L Medications Medications Current Medications Ondansetron HCl (Zofran Inj) 4 mg Q6H PRN IV N/V Last administered on 03/04/17 09:39; Admin Dose 4 MG; Start 03/01/17 at 08:00 Allopurinol (Zyloprim) 100 mg BID PO Last administered on 03/17/17 08:31; Admin Dose 100 MG; Start 03/01/17 at 21:00 Enalapril Maleate (Vasotec) 10 mg DAILY PO Last administered on 03/17/17 08:31 ; Admin Dose 10 MG; Start 03/02/17 at 09:00 Metoprolol Tartrate (Lopressor) 25 mg DAILY PO Last administered on 03/17/17 08:31; Admin Dose 25 MG; Start 03/02/17 at 09:00 Pantoprazole (Protonix Iv) 40 mg BID@,18 IV Last administered on 03/17/17 17 :06; Admin Dose 40 MG; Start 03/04/17 at 18:00 Acetaminophen/ Hydrocodone Bitart ([place] (5/325)) 1 tab Q4H PRN PO PAIN LEVEL 7 -10 Last administered on 03/14/17 05:48; Admin Dose 1 TAB; Start 03/08/17 at 15: 30 Acetaminophen (Tylenol Tab) 650 mg Q6H PRN PO PAIN AND OR ELEVATED TEMP Last administered on 03/16/17 14:18; Admin Dose 650 MG; Start 03/08/17 at 23:30 Tramadol HCl (Ultram) 50 mg Q6H PRN PO PAIN Last administered on 03/09/17 11:47 ; Admin Dose 50 MG; Start 03/08/17 at 23:30 Sucralfate (Carafate Susp) 1 gm QID PO Last administered on 03/17/17 17:06; Admin Dose 1 GM; Start 03/10/17 at 21:00 Levofloxacin (Levaquin) 750 mg Q48H PO Last administered on 03/17/17 12:06; Admin Dose 750 MG; Start 03/13/17 at 12:00 Morphine Sulfate (morphine) 2 mg Q4H PRN IV severe pain ; Start 03/15/17 at 19: 00 LAURIE AHN MD Mar 17, 2017 17:48
--- NOTE | 2017-03-17 18:15 | PN ---
Date/Time of Note Date/Time of Note DATE: 03/17/17 TIME: 18:14 Assessment/Plan VTE Prophylaxis VTE Prophylaxis Intervention: ambulation Lines/Catheters [facility] Saline Lock Urinary Cath still in place: No Assessment/Plan Assessment/Plan Assessment * Bile leak improved ERCP with placement of biliary stent * S/P laparoscopic cholecystectomy * Duodenal ulcer Plan * continue present management * continue monitoring Selwyn Webb drain * Follow up after 3 months for removal of biliary stent * Case was discussed with Dr Burgess * Further orders will depend on clinical course Subjective 24 Hr Interval Summary Free Text/Dictation * Course reviewed with RN * Patient seen and examined * No abdominal pain Exam/Review of Systems Vital Signs Vitals Vital Signs Date Time Temp Pulse Resp B/P Pulse Ox O2 Delivery O2 Flow Rate FiO2 03/17/17 15:00 2.0 03/17/17 10:04 Nasal Cannula 03/17/17 07:51 99.1 108 24 123/59 97 Intake and Output 03/16/17 03/16/17 03/17/17 15:00 23:00 07:00 Intake Total 800 ml 840 ml 340 ml Output Total 0 ml 260 ml Balance 800 ml 840 ml 80 ml Exam Constitutional: alert, frail Respiratory: clear to auscultation, normal air movement Cardiovascular: nl pulses, regular rate and rhythm Gastrointestinal: non-tender, soft Musculoskeletal: nl extremities to inspection Extremities: normal pulses Neurological: nl mental status, nl speech Results Result Diagram: 03/17/17 0510 03/17/17 0510 Results 24 hrs Laboratory Tests Test 03/17/17 05:10 White Blood Count 8.4 # Red Blood Count 3.13 L Hemoglobin 9.1 L Hematocrit 26.9 L Mean Corpuscular Volume 85.9 Mean Corpuscular Hemoglobin 29.1 Mean Corpuscular Hemoglobin Concent 33.8 Red Cell Distribution Width 16.1 H Platelet Count 580 H Mean Platelet Volume 9.8 Neutrophils % 69.4 Lymphocytes % 20.3 Monocytes % 6.2 Eosinophils % 3.0 Basophils % 0.4 Nucleated Red Blood Cells % 0.0 Neutrophils # 5.8 Lymphocytes # 1.7 Monocytes # 0.5 Eosinophils # 0.3 Basophils # 0.0 Nucleated Red Blood Cells # 0.0 Prothrombin Time 14.0 Prothrombin Time Ratio 1.1 INR International Normalized Ratio 1.08 Activated Partial Thromboplast Time 37.9 H Sodium Level 133 L Potassium Level 3.7 Chloride Level 104 Carbon Dioxide Level 21 Anion Gap 12 Blood Urea Nitrogen 8 Creatinine 1.14 Glucose Level 81 Calcium Level 8.2 L Medications Medications Current Medications Ondansetron HCl (Zofran Inj) 4 mg Q6H PRN IV N/V Last administered on 03/04/17 09:39; Admin Dose 4 MG; Start 03/01/17 at 08:00 Allopurinol (Zyloprim) 100 mg BID PO Last administered on 03/17/17 08:31; Admin Dose 100 MG; Start 03/01/17 at 21:00 Enalapril Maleate (Vasotec) 10 mg DAILY PO Last administered on 03/17/17 08:31 ; Admin Dose 10 MG; Start 03/02/17 at 09:00 Metoprolol Tartrate (Lopressor) 25 mg DAILY PO Last administered on 03/17/17 08:31; Admin Dose 25 MG; Start 03/02/17 at 09:00 Pantoprazole (Protonix Iv) 40 mg BID@ IV Last administered on 03/17/17 17 :06; Admin Dose 40 MG; Start 03/04/17 at 18:00 Acetaminophen/ Hydrocodone Bitart ([place] (5/325)) 1 tab Q4H PRN PO PAIN LEVEL 7 -10 Last administered on 03/14/17 05:48; Admin Dose 1 TAB; Start 03/08/17 at 15: 30 Acetaminophen (Tylenol Tab) 650 mg Q6H PRN PO PAIN AND OR ELEVATED TEMP Last administered on 03/16/17 14:18; Admin Dose 650 MG; Start 03/08/17 at 23:30 Tramadol HCl (Ultram) 50 mg Q6H PRN PO PAIN Last administered on 03/09/17 11:47 ; Admin Dose 50 MG; Start 03/08/17 at 23:30 Sucralfate (Carafate Susp) 1 gm QID PO Last administered on 03/17/17 17:06; Admin Dose 1 GM; Start 03/10/17 at 21:00 Levofloxacin (Levaquin) 750 mg Q48H PO Last administered on 03/17/17 12:06; Admin Dose 750 MG; Start 03/13/17 at 12:00 Morphine Sulfate (morphine) 2 mg Q4H PRN IV severe pain ; Start 03/15/17 at 19: 00 FIDE CORDOVA NP Mar 17, 2017 18:15
--- NOTE | 2017-03-17 19:22 | CONS ---
Date/Time of Note Date/Time of Note DATE: 03/17/17 TIME: 19:21 Assessment/Plan Assessment/Plan Chief Complaint/Hosp Course Anemia, likely secondary to iron deficiency, with a history of gastrointestinal bleed in the past requiring blood transfusion. Hemoglobin DOWN TODAY MONITOR FOR BLEEDING Leukocytosis, likely secondary to gallstone pancreatitis THROMBOCYTOSIS- REACTIVE CONT TO MONITOR Gallstone pancreatitis. Abdominal pain, most likely secondary to above.. Chronic kidney disease. History of gout. History of hypertension, blood pressure within acceptable range. 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 Problems: Consultation Date/Type/Reason Admit Date/Time March 01, 2017 at 05:46 Initial Consult Date 03/01/17 Type of Consultation: HEMEON Referring Provider: MAGNOLIA PIERRE MD 24 HR Interval Summary Free Text/Dictation ALL NOTED COUNT- SL DOWN NO BLEEDING Exam/Review of Systems Vital Signs Vitals Vital Signs Date Time Temp Pulse Resp B/P Pulse Ox O2 Delivery O2 Flow Rate FiO2 03/17/17 15:00 2.0 03/17/17 10:04 Nasal Cannula 03/17/17 07:51 99.1 108 24 123/59 97 Intake and Output 03/16/17 03/16/17 03/17/17 15:00 23:00 07:00 Intake Total 800 ml 840 ml 340 ml Output Total 0 ml 260 ml Balance 800 ml 840 ml 80 ml Exam Constitutional: alert, oriented, NAD Head: atraumatic, normocephalic Eyes: EOMI, PERRL, nl conjunctiva, nl lids, nl sclera ENMT: nl external ears & nose, nl lips & teeth, nl nasal mucosa & septum Neck: non-tender, supple Respiratory: + right side wheezing Cardiovascular: nl pulses, regular rate and rhythm Gastrointestinal: bowel sounds, hepatomegaly, soft, tender (Mild tenderness near incision sites), No ascites, No distended, No mass, + drain in place Musculoskeletal: nl extremities to inspection Extremities: normal pulses Results Result Diagram: 03/17/1710 03/17/17 0510 Results 24 hrs Laboratory Tests Test 03/17/17 05:10 White Blood Count 8.4 # Red Blood Count 3.13 L Hemoglobin 9.1 L Hematocrit 26.9 L Mean Corpuscular Volume 85.9 Mean Corpuscular Hemoglobin 29.1 Mean Corpuscular Hemoglobin Concent 33.8 Red Cell Distribution Width 16.1 H Platelet Count 580 H Mean Platelet Volume 9.8 Neutrophils % 69.4 Lymphocytes % 20.3 Monocytes % 6.2 Eosinophils % 3.0 Basophils % 0.4 Nucleated Red Blood Cells % 0.0 Neutrophils # 5.8 Lymphocytes # 1.7 Monocytes # 0.5 Eosinophils # 0.3 Basophils # 0.0 Nucleated Red Blood Cells # 0.0 Prothrombin Time 14.0 Prothrombin Time Ratio 1.1 INR International Normalized Ratio 1.08 Activated Partial Thromboplast Time 37.9 H Sodium Level 133 L Potassium Level 3.7 Chloride Level 104 Carbon Dioxide Level 21 Anion Gap 12 Blood Urea Nitrogen 8 Creatinine 1.14 Glucose Level 81 Calcium Level 8.2 L Medications Medications Current Medications Ondansetron HCl (Zofran Inj) 4 mg Q6H PRN IV N/V Last administered on 03/04/17 09:39; Admin Dose 4 MG; Start 03/01/17 at 08:00 Allopurinol (Zyloprim) 100 mg BID PO Last administered on 03/17/17 08:31; Admin Dose 100 MG; Start 03/01/17 at 21:00 Enalapril Maleate (Vasotec) 10 mg DAILY PO Last administered on 03/17/17 08:31 ; Admin Dose 10 MG; Start 03/02/17 at 09:00 Metoprolol Tartrate (Lopressor) 25 mg DAILY PO Last administered on 03/17/17 08:31; Admin Dose 25 MG; Start 03/02/17 at 09:00 Pantoprazole (Protonix Iv) 40 mg BID@,18 IV Last administered on 03/17/17 17 :06; Admin Dose 40 MG; Start 03/04/17 at 18:00 Acetaminophen/ Hydrocodone Bitart ([place] (5/325)) 1 tab Q4H PRN PO PAIN LEVEL 7 -10 Last administered on 03/14/17 05:48; Admin Dose 1 TAB; Start 03/08/17 at 15: 30 Acetaminophen (Tylenol Tab) 650 mg Q6H PRN PO PAIN AND OR ELEVATED TEMP Last administered on 03/16/17 14:18; Admin Dose 650 MG; Start 03/08/17 at 23:30 Tramadol HCl (Ultram) 50 mg Q6H PRN PO PAIN Last administered on 03/09/17 11:47 ; Admin Dose 50 MG; Start 03/08/17 at 23:30 Sucralfate (Carafate Susp) 1 gm QID PO Last administered on 03/17/17 17:06; Admin Dose 1 GM; Start 03/10/17 at 21:00 Levofloxacin (Levaquin) 750 mg Q48H PO Last administered on 03/17/17 12:06; Admin Dose 750 MG; Start 03/13/17 at 12:00 Morphine Sulfate (morphine) 2 mg Q4H PRN IV severe pain ; Start 03/15/17 at 19: 00 NARAYAN FERNÁNDEZ MD Mar 17, 2017 19:22
--- NOTE | 2017-03-17 19:36 | PN ---
DATE: 03/17/2017 The patient's SHANTE drainage has stopped and it is entirely serous. OBJECTIVE: ABDOMEN: Benign. PLAN: At the bedside today, the SHANTE drain was removed. He is cleared for discharge home tomorrow. Dictated By: FRACISCO GREENE/NTS Conf#: [id number] DID#: [id number]
[2017-03-17 20:39] VITALS: BP 140/70; RESP 18
[2017-03-18] MEDS: PANTOPRAZOLE 40 MG INJ IV SCH ×2 (05:28→17:46)
[2017-03-18] MEDS: ACETAMINOPHEN 325 MG TAB PO PRN ×3 (06:40→21:11)
[2017-03-18 08:31] VITALS: BP 112/63; RESP 18
[2017-03-18] MEDS: ENALAPRIL 10 MG TAB PO SCH (09:00)
[2017-03-18] MEDS: SUCRALFATE (100 MG/ML) 10ML CUP PO SCH ×4 (09:24→21:10)
[2017-03-18] MEDS: ALLOPURINOL 100 MG TAB PO SCH ×2 (09:24→21:11)
--- NOTE | 2017-03-18 09:26 | PN ---
DATE: 03/18/2017 The patient is completely asymptomatic and has been afebrile throughout. His leukocytosis is resolv ed. The abdominal examination is benign. The SHANTE drain was removed yesterday. PLAN: The patient is surgically cleared for discharge home today. Follow up with Dr. Tamez in 2 weeks. Dictated By: FRACISCO GREENE/ROXANNE Conf#: [id number] DID#: [id number]
[2017-03-18] MEDS: METOPROLOL 25 MG TAB PO SCH (11:19)
[2017-03-18] MEDS: DEXTROSE 5%-0.45% NACL 1,000 ML IV SCH (14:11)
--- NOTE | 2017-03-18 15:43 | PN ---
Date/Time of Note Date/Time of Note DATE: 03/18/17 TIME: 15:40 Assessment/Plan VTE Prophylaxis VTE Prophylaxis Intervention: ambulation Lines/Catheters IV Catheter Type (from [facility]): Saline Lock Urinary Cath still in place: No Assessment/Plan Assessment/Plan Assessment * Bile leak improved ERCP with placement of biliary stent * S/P laparoscopic cholecystectomy * Duodenal ulcer Plan * continue present management * Stable for outpatient management * Pantoprazole 40 mg BID for 8 weeks * Follow up after 3 months for removal of biliary stent * Case was discussed with Dr Burgess Subjective 24 Hr Interval Summary Free Text/Dictation * Course reviewed with RN * Patient seen and examined * Patient had episode of hypotension * On and off abdominal pain Exam/Review of Systems Vital Signs Vitals Vital Signs Date Time Temp Pulse Resp B/P Pulse Ox O2 Delivery O2 Flow Rate FiO2 03/18/17 08:31 98.2 112 18 112/63 96 03/17/17 15:00 2.0 03/17/17 10:04 Nasal Cannula Intake and Output 03/17/17 03/17/17 03/18/17 15:00 23:00 07:00 Intake Total 540 ml 200 ml Output Total 200 ml Balance 540 ml 0 ml Exam Constitutional: alert, frail Neck: non-tender, supple Respiratory: clear to auscultation, normal air movement Cardiovascular: nl pulses, regular rate and rhythm Gastrointestinal: nl liver, spleen, non-tender, soft Musculoskeletal: nl extremities to inspection Extremities: normal pulses Results Result Diagram: 03/17/17 0510 03/17/17 0510 Medications Medications Current Medications Ondansetron HCl (Zofran Inj) 4 mg Q6H PRN IV N/V Last administered on 03/04/17 09:39; Admin Dose 4 MG; Start 03/01/17 at 08:00 Allopurinol (Zyloprim) 100 mg BID PO Last administered on 03/18/17 09:24; Admin Dose 100 MG; Start 03/01/17 at 21:00 Enalapril Maleate (Vasotec) 10 mg DAILY PO Last administered on 03/17/17 08:31 ; Admin Dose 10 MG; Start 03/02/17 at 09:00 Metoprolol Tartrate (Lopressor) 25 mg DAILY PO Last administered on 03/18/17 11:19; Admin Dose 25 MG; Start 03/02/17 at 09:00 Pantoprazole (Protonix Iv) 40 mg BID@06,18 IV Last administered on 03/18/17 05 :28; Admin Dose 40 MG; Start 03/04/17 at 18:00 Acetaminophen/ Hydrocodone Bitart ([place] (5/325)) 1 tab Q4H PRN PO PAIN LEVEL 7 -10 Last administered on 03/14/17 05:48; Admin Dose 1 TAB; Start 03/08/17 at 15: 30 Acetaminophen (Tylenol Tab) 650 mg Q6H PRN PO PAIN AND OR ELEVATED TEMP Last administered on 03/18/17 14:02; Admin Dose 650 MG; Start 03/08/17 at 23:30 Tramadol HCl (Ultram) 50 mg Q6H PRN PO PAIN Last administered on 03/09/17 11:47 ; Admin Dose 50 MG; Start 03/08/17 at 23:30 Sucralfate (Carafate Susp) 1 gm QID PO Last administered on 03/18/17 14:02; Admin Dose 1 GM; Start 03/10/17 at 21:00 Levofloxacin (Levaquin) 750 mg Q48H PO Last administered on 03/17/17 12:06; Admin Dose 750 MG; Start 03/13/17 at 12:00 Morphine Sulfate 2 mg 2 mg Q4H PRN IV severe pain ; Start 03/15/17 at 19:00 Dextrose/Sodium Chloride (D5-1/2ns) 1,000 ml @ 75 mls/hr [id number] IV Last administered on 03/18/17 14:11; Admin Dose 75 MLS/HR; Start 03/18/17 at 13:00; Stop 03/19/17 at 15:39 FIDE CORDOVA NP Mar 18, 2017 15:43
--- NOTE | 2017-03-18 16:59 | PN ---
Date/Time of Note Date/Time of Note DATE: 03/18/17 TIME: 16:49 Assessment/Plan VTE Prophylaxis VTE Prophylaxis Intervention: SCD's Lines/Catheters IV Catheter Type (from Nrs): Saline Lock Urinary Cath still in place: No Assessment/Plan Assessment/Plan 1. gallstone pancreatitis: sp lap ashleigh , with subsequent bile leak, s/p ERCP 3 days ago with biliary stent placement. SHANTE drainage has diminished to 100 mL over the last 24 hours, but is still bilious. SHANTE drain removed 2. HTN: stable- cont home meds 3. gout flare: slowly improving - cont colchicine course (started 6.3). - Also cont home allopurinol 4. diet: started on PO diet, tolerating so far 5. DVT prophx: SCDs pt becomes hypotensive and tachycardic, c/o dizziness, RUQ pain, will give IVF D51/2 NS at 75 cc/hr x 2liter then reassess in AM possible d/c home on Wednesday Subjective 24 Hr Interval Summary Free Text/Dictation pt becomes hypotensive and tachycardic, , C./o dizziness with ambulation Exam/Review of Systems Vital Signs Vitals Vital Signs Date Time Temp Pulse Resp B/P Pulse Ox O2 Delivery O2 Flow Rate FiO2 03/18/17 08:31 98.2 112 18 112/63 96 03/17/17 15:00 2.0 03/17/17 10:04 Nasal Cannula Intake and Output 03/17/17 03/17/17 03/18/17 15:00 23:00 07:00 Intake Total 540 ml 200 ml Output Total 200 ml Balance 540 ml 0 ml Exam Constitutional: alert, oriented, NAD Head: atraumatic, normocephalic Eyes: EOMI, PERRL, nl conjunctiva, nl lids, nl sclera ENMT: nl external ears & nose, nl lips & teeth, nl nasal mucosa & septum Neck: non-tender, supple Respiratory: + right side wheezing Cardiovascular: nl pulses, regular rate and rhythm Gastrointestinal: bowel sounds, hepatomegaly, soft, tender (Mild tenderness near incision sites Musculoskeletal: nl extremities to inspection Extremities: normal pulses Results Result Diagram: 03/17/17 0510 03/17/17 0510 Medications Medications Current Medications Ondansetron HCl (Zofran Inj) 4 mg Q6H PRN IV N/V Last administered on 03/04/17 09:39; Admin Dose 4 MG; Start 03/01/17 at 08:00 Allopurinol (Zyloprim) 100 mg BID PO Last administered on 03/18/17 09:24; Admin Dose 100 MG; Start 03/01/17 at 21:00 Enalapril Maleate (Vasotec) 10 mg DAILY PO Last administered on 03/17/17 08:31 ; Admin Dose 10 MG; Start 03/02/17 at 09:00 Metoprolol Tartrate (Lopressor) 25 mg DAILY PO Last administered on 03/18/17 11:19; Admin Dose 25 MG; Start 03/02/17 at 09:00 Pantoprazole (Protonix Iv) 40 mg BID@06,18 IV Last administered on 03/18/17 05 :28; Admin Dose 40 MG; Start 03/04/17 at 18:00 Acetaminophen/ Hydrocodone Bitart ([place] (5/325)) 1 tab Q4H PRN PO PAIN LEVEL 7 -10 Last administered on 03/14/17 05:48; Admin Dose 1 TAB; Start 03/08/17 at 15: 30 Acetaminophen (Tylenol Tab) 650 mg Q6H PRN PO PAIN AND OR ELEVATED TEMP Last administered on 03/18/17 14:02; Admin Dose 650 MG; Start 03/08/17 at 23:30 Tramadol HCl (Ultram) 50 mg Q6H PRN PO PAIN Last administered on 03/09/17 11:47 ; Admin Dose 50 MG; Start 03/08/17 at 23:30 Sucralfate (Carafate Susp) 1 gm QID PO Last administered on 03/18/17 14:02; Admin Dose 1 GM; Start 03/10/17 at 21:00 Levofloxacin (Levaquin) 750 mg Q48H PO Last administered on 03/17/17 12:06; Admin Dose 750 MG; Start 03/13/17 at 12:00 Morphine Sulfate 2 mg 2 mg Q4H PRN IV severe pain ; Start 03/15/17 at 19:00 Dextrose/Sodium Chloride (D5-1/2ns) 1,000 ml @ 75 mls/hr [id number] IV Last administered on 03/18/17 14:11; Admin Dose 75 MLS/HR; Start 03/18/17 at 13:00; Stop 03/19/17 at 15:39 LAURIE AHN MD Mar 18, 2017 16:59
--- NOTE | 2017-03-18 22:21 | CONS ---
Date/Time of Note Date/Time of Note DATE: 03/18/17 TIME: 22:20 Assessment/Plan Assessment/Plan Chief Complaint/Hosp Course Anemia, likely secondary to iron deficiency, with a history of gastrointestinal bleed in the past requiring blood transfusion. Hemoglobin DOWN TODAY MONITOR FOR BLEEDING Leukocytosis, likely secondary to gallstone pancreatitis THROMBOCYTOSIS- REACTIVE CONT TO MONITOR Gallstone pancreatitis. Abdominal pain, most likely secondary to above.. Chronic kidney disease. History of gout. History of hypertension, blood pressure within acceptable range. 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 Problems: Consultation Date/Type/Reason Admit Date/Time March 01, 2017 at 05:46 Initial Consult Date 03/01/17 [facility] Referring Provider: MAGNOLIA PIERRE MD 24 HR Interval Summary Free Text/Dictation IMPROVING leukocytosis- resolved. The SHANTE drain was removed Exam/Review of Systems Vital Signs Vitals Vital Signs Date Time Temp Pulse Resp B/P Pulse Ox O2 Delivery O2 Flow Rate FiO2 03/18/17 08:31 98.2 112 18 112/63 96 03/17/17 15:00 2.0 03/17/17 10:04 Nasal Cannula Intake and Output 03/17/17 03/17/17 03/18/17 15:00 23:00 07:00 Intake Total 540 ml 200 ml Output Total 200 ml Balance 540 ml 0 ml Exam Constitutional: alert, oriented, NAD Head: atraumatic, normocephalic Eyes: EOMI, PERRL, nl conjunctiva, nl lids, nl sclera ENMT: nl external ears & nose, nl lips & teeth, nl nasal mucosa & septum Neck: non-tender, supple Respiratory: + right side wheezing Cardiovascular: nl pulses, regular rate and rhythm Gastrointestinal: bowel sounds, hepatomegaly, soft, tender (Mild tenderness near incision sites), No ascites, No distended, No mass, + drain in place Musculoskeletal: nl extremities to inspection Extremities: normal pulses Results Result Diagram: 03/17/17 0510 03/17/17 0510 Medications Medications Current Medications Ondansetron HCl (Zofran Inj) 4 mg Q6H PRN IV N/V Last administered on 03/04/17 09:39; Admin Dose 4 MG; Start 03/01/17 at 08:00 Allopurinol (Zyloprim) 100 mg BID PO Last administered on 03/18/17 21:11; Admin Dose 100 MG; Start 03/01/17 at 21:00 Enalapril Maleate (Vasotec) 10 mg DAILY PO Last administered on 03/17/17 08:31 ; Admin Dose 10 MG; Start 03/02/17 at 09:00 Metoprolol Tartrate (Lopressor) 25 mg DAILY PO Last administered on 03/18/17 11:19; Admin Dose 25 MG; Start 03/02/17 at 09:00 Pantoprazole (Protonix Iv) 40 mg BID@06,18 IV Last administered on 03/18/17 17 :46; Admin Dose 40 MG; Start 03/04/17 at 18:00 Acetaminophen/ Hydrocodone Bitart ([place] (5/325)) 1 tab Q4H PRN PO PAIN LEVEL 7 -10 Last administered on 03/14/17 05:48; Admin Dose 1 TAB; Start 03/08/17 at 15: 30 Acetaminophen (Tylenol Tab) 650 mg Q6H PRN PO PAIN AND OR ELEVATED TEMP Last administered on 03/18/17 21:11; Admin Dose 650 MG; Start 03/08/17 at 23:30 Tramadol HCl (Ultram) 50 mg Q6H PRN PO PAIN Last administered on 03/09/17 11:47 ; Admin Dose 50 MG; Start 03/08/17 at 23:30 Sucralfate (Carafate Susp) 1 gm QID PO Last administered on 03/18/17 21:10; Admin Dose 1 GM; Start 03/10/17 at 21:00 Levofloxacin (Levaquin) 750 mg Q48H PO Last administered on 03/17/17 12:06; Admin Dose 750 MG; Start 03/13/17 at 12:00 Morphine Sulfate 2 mg 2 mg Q4H PRN IV severe pain ; Start 03/15/17 at 19:00 Dextrose/Sodium Chloride (D5-1/2ns) 1,000 ml @ 75 mls/hr [id number] IV Last administered on 03/18/17 14:11; Admin Dose 75 MLS/HR; Start 03/18/17 at 13:00; Stop 03/19/17 at 15:39 NARAYAN FERNÁNDEZ MD Mar 18, 2017 22:21
[2017-03-19] MEDS: DEXTROSE 5%-0.45% NACL 1,000 ML IV SCH ×2 (02:20→03:49)
[2017-03-19 05:58] LABS: ADD SCAN DIFF NO
[2017-03-19 06:17] LABS: BASOPHILS % 0.3 % (0.0-2.0); EOSINOPHILS # 0.2 10^3/ul (0.0-0.5); EOSINOPHILS % 2.5 % (0.0-7.0); HEMATOCRIT 24.5 % (42.0-52.0); LYMPHOCYTES # 2.2 10^3/ul (0.8-2.9); MEAN CORPUSCULAR HEMOGLOBIN 28.5 pg (29.0-33.0); MEAN CORPUSCULAR HGB CONC 32.7 g/dl (32.0-37.0); MEAN CORPUSCULAR VOLUME 87.2 fl (82.0-101.0); MEAN PLATELET VOLUME 9.7 fl (7.4-10.4); MONOCYTE # 0.7 10^3/ul (0.3-0.9); MONOCYTES % 7.3 % (0.0-11.0); NEUTROPHIL # 6.3 10^3/ul (1.6-7.5); NEUTROPHILS % 66.2 % (39.0-77.0); PLATELET COUNT 568 10^3/UL (140-415); RED BLOOD COUNT 2.81 10^6/ul (4.70-6.10); RED CELL DISTRIBUTION WIDTH 16.3 % (11.5-14.5); WHITE BLOOD COUNT 9.5 10^3/ul (4.8-10.8)
[2017-03-19] MEDS: PANTOPRAZOLE 40 MG INJ IV SCH ×2 (06:18→17:13)
[2017-03-19 06:56] LABS: CALCIUM 7.1 mg/dl (8.4-10.2); CREATININE 1.05 mg/dl (0.61-1.24); POTASSIUM 3.2 mmol/L (3.5-5.1)
[2017-03-19 08:32] VITALS: BP 147/67; RESP 16
[2017-03-19] MEDS: METOPROLOL 25 MG TAB PO SCH (09:13)
[2017-03-19] MEDS: ACETAMINOPHEN 325 MG TAB PO PRN ×2 (09:13→17:13)
[2017-03-19] MEDS: ENALAPRIL 10 MG TAB PO SCH (09:13)
[2017-03-19] MEDS: ALLOPURINOL 100 MG TAB PO SCH ×2 (09:13→20:54)
[2017-03-19] MEDS: SUCRALFATE (100 MG/ML) 10ML CUP PO SCH ×4 (09:13→20:54)
[2017-03-19] MEDS: LEVOFLOXACIN 750 MG TABLET PO SCH (12:23)
[2017-03-19 14:27] LABS: ADD SCAN DIFF NO
[2017-03-19 14:30] LABS: BASOPHILS % 0.3 % (0.0-2.0); EOSINOPHILS # 0.2 10^3/ul (0.0-0.5); EOSINOPHILS % 1.7 % (0.0-7.0); HEMATOCRIT 25.1 % (42.0-52.0); HEMOGLOBIN 8.6 g/dl (14.0-18.0); LYMPHOCYTES # 2.1 10^3/ul (0.8-2.9); LYMPHOCYTES % 18.6 % (15.0-51.0); MEAN CORPUSCULAR HEMOGLOBIN 28.8 pg (29.0-33.0); MEAN CORPUSCULAR HGB CONC 34.3 g/dl (32.0-37.0); MEAN CORPUSCULAR VOLUME 83.9 fl (82.0-101.0); MEAN PLATELET VOLUME 9.1 fl (7.4-10.4); MONOCYTES % 8.9 % (0.0-11.0); NEUTROPHIL # 7.7 10^3/ul (1.6-7.5); NEUTROPHILS % 69.8 % (39.0-77.0); PLATELET COUNT 596 10^3/UL (140-415); RED BLOOD COUNT 2.99 10^6/ul (4.70-6.10); WHITE BLOOD COUNT 11.1 10^3/ul (4.8-10.8)
--- NOTE | 2017-03-19 16:19 | RADRPT ---
PROCEDURE: XR Abdomen 1 View. CLINICAL INDICATION: Abdominal pain and nausea TECHNIQUE: AP abdomen x-ray. COMPARISON: CT March 01, 2017 FINDINGS: Scattered gas is noted in the colon. Scattered gas is seen within nondilated loops of small bowel. No dilated loops of small bowel are observed. No organomegaly is identified. Cholecystectomy clips are seen in the right upper quadrant. Common bile duct stent is seen over the right upper quadrant. Degenerative changes are noted in the hips and spine. Vascular calcifications are seen in the pel vis in both thighs. IMPRESSION: Nonspecific bowel gas pattern. Common bile duct stent over the right upper quadrant. If further characterization of the abdomen is needed CT should be considered. RPTAT: AA .Ollie Temple MD, Date Time Electronically viewed and signed by .Ollie Temple MD, MD on 03/19/2017 16:19 .P/
--- NOTE | 2017-03-19 18:36 | PN ---
Date/Time of Note Date/Time of Note DATE: 03/19/17 TIME: 18:34 Assessment/Plan VTE Prophylaxis VTE Prophylaxis Intervention: SCD's Lines/Catheters IV Catheter Type (from Nrs): Peripheral IV Urinary Cath still in place: No Assessment/Plan Assessment/Plan 1. gallstone pancreatitis: sp lap ashleigh , with subsequent bile leak, s/p ERCP 3 days ago with biliary stent placement.- s/p Removal of SHANTE drain on 03/17/17 2. HTN: stable- cont home meds 3. gout flare: slowly improving - cont colchicine course (started 6.3). - Also cont home allopurinol 4. diet: started on PO diet, tolerating so far 5. DVT prophx: SCDs pt becomes hypotensive and tachycardic, c/o dizziness, RUQ pain, S/p IVF D51/2 NS at 75 cc/hr x 2liter - still c/o abd pain and Decreased PO intake, will order KUB to rule out ileus, K replacement possible d/c home over the weekend if stable and pain resovled with PO intake will need PO levaquin on discharge Subjective 24 Hr Interval Summary Free Text/Dictation c/o RUQ pain and nausea with PO intake, decreased PO intake because afraid about vomiting it , Exam/Review of Systems Vital Signs Vitals Vital Signs Date Time Temp Pulse Resp B/P Pulse Ox O2 Delivery O2 Flow Rate FiO2 03/19/17 08:32 99.2 103 16 147/67 96 03/17/17 15:00 2.0 03/17/17 10:04 Nasal Cannula Intake and Output 03/18/17 03/18/17 03/19/17 15:00 23:00 07:00 Intake Total 840 ml 1275 ml Balance 840 ml 1275 ml Exam Constitutional: alert, oriented, NAD Head: atraumatic, normocephalic Eyes: EOMI, PERRL, nl conjunctiva, nl lids, nl sclera ENMT: nl external ears & nose, nl lips & teeth, nl nasal mucosa & septum Neck: non-tender, supple Respiratory: + right side wheezing Cardiovascular: nl pulses, regular rate and rhythm Gastrointestinal: bowel sounds, hepatomegaly, soft, tender (Mild tenderness near incision sites Musculoskeletal: nl extremities to inspection Extremities: normal pulses Results Result Diagram: 03/19/17 1400 03/19/17 0523 Results 24 hrs Laboratory Tests Test 03/19/17 05:23 03/19/17 14:00 White Blood Count 9.5 11.1 H Red Blood Count 2.81 L 2.99 L Hemoglobin 8.0 L 8.6 L Hematocrit 24.5 L 25.1 L Mean Corpuscular Volume 87.2 83.9 Mean Corpuscular Hemoglobin 28.5 L 28.8 L Mean Corpuscular Hemoglobin Concent 32.7 34.3 Red Cell Distribution Width 16.3 H 16.0 H Platelet Count 568 H 596 H Mean Platelet Volume 9.7 9.1 Neutrophils % 66.2 69.8 Lymphocytes % 23.0 18.6 Monocytes % 7.3 8.9 Eosinophils % 2.5 1.7 Basophils % 0.3 0.3 Nucleated Red Blood Cells % 0.0 0.0 Neutrophils # 6.3 7.7 H Lymphocytes # 2.2 2.1 Monocytes # 0.7 1.0 H Eosinophils # 0.2 0.2 Basophils # 0.0 0.0 Nucleated Red Blood Cells # 0.0 0.0 Sodium Level 127 L Potassium Level 3.2 L Chloride Level 100 Carbon Dioxide Level 21 Anion Gap 9 Blood Urea Nitrogen 6 L Creatinine 1.05 Glucose Level 301 H Calcium Level 7.1 L Medications Medications Current Medications Ondansetron HCl (Zofran Inj) 4 mg Q6H PRN IV N/V Last administered on 03/04/17 09:39; Admin Dose 4 MG; Start 03/01/17 at 08:00 Allopurinol (Zyloprim) 100 mg BID PO Last administered on 03/19/17 09:13; Admin Dose 100 MG; Start 03/01/17 at 21:00 Enalapril Maleate (Vasotec) 10 mg DAILY PO Last administered on 03/19/17 09:13 ; Admin Dose 10 MG; Start 03/02/17 at 09:00 Metoprolol Tartrate (Lopressor) 25 mg DAILY PO Last administered on 03/19/17 09:13; Admin Dose 25 MG; Start 03/02/17 at 09:00 Pantoprazole (Protonix Iv) 40 mg BID@ IV Last administered on 03/19/17 17 :13; Admin Dose 40 MG; Start 03/04/17 at 18:00 Acetaminophen/ Hydrocodone Bitart ([place] (5/325)) 1 tab Q4H PRN PO PAIN LEVEL 7 -10 Last administered on 03/14/17 05:48; Admin Dose 1 TAB; Start 03/08/17 at 15: 30 Acetaminophen (Tylenol Tab) 650 mg Q6H PRN PO PAIN AND OR ELEVATED TEMP Last administered on 03/19/17 17:13; Admin Dose 650 MG; Start 03/08/17 at 23:30 Tramadol HCl (Ultram) 50 mg Q6H PRN PO PAIN Last administered on 03/09/17 11:47 ; Admin Dose 50 MG; Start 03/08/17 at 23:30 Sucralfate (Carafate Susp) 1 gm QID PO Last administered on 03/19/17 17:13; Admin Dose 1 GM; Start 03/10/17 at 21:00 Levofloxacin (Levaquin) 750 mg Q48H PO Last administered on 03/19/17 12:23; Admin Dose 750 MG; Start 03/13/17 at 12:00 Morphine Sulfate (morphine) 2 mg Q4H PRN IV severe pain ; Start 03/15/17 at 19: 00 LAURIE AHN MD Mar 19, 2017 18:36
[2017-03-19 19:56] VITALS: BP 127/62; RESP 16
--- NOTE | 2017-03-19 22:05 | CONS ---
Date/Time of Note Date/Time of Note DATE: 03/19/17 TIME: 22:03 Assessment/Plan Assessment/Plan Chief Complaint/Hosp Course Anemia, likely secondary to iron deficiency, with a history of gastrointestinal bleed in the past requiring blood transfusion. Hemoglobin DOWN TODAY MONITOR FOR BLEEDING DROP H/H - NOTED REPEATED H/H- SL BETTER NO BLEEDING PT MIGHT NEED PRBC PRIOR TO DC Leukocytosis, likely secondary to gallstone pancreatitis THROMBOCYTOSIS- REACTIVE CONT TO MONITOR Gallstone pancreatitis. Abdominal pain, most likely secondary to above.. Chronic kidney disease. History of gout. History of hypertension, blood pressure within acceptable range. 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 Problems: Consultation Date/Type/Reason Admit Date/Time March 01, 2017 at 05:46 Initial Consult Date 03/01/17 Type of Consultation: HEMEON Referring Provider: MAGNOLIA PIERRE MD 24 HR Interval Summary Free Text/Dictation DROP H/H - NOTED REPEATED H/H- SL BETTER NO BLEEDING PT MIGHT NEED PRBC PRIOR TO DC Exam/Review of Systems Vital Signs Vitals Vital Signs Date Time Temp Pulse Resp B/P Pulse Ox O2 Delivery O2 Flow Rate FiO2 03/19/17 19:56 98.2 82 16 127/62 96 03/17/17 15:00 2.0 03/17/17 10:04 Nasal Cannula Intake and Output 03/18/17 03/18/17 03/19/17 15:00 23:00 07:00 Intake Total 840 ml 1275 ml Balance 840 ml 1275 ml Exam Constitutional: alert, oriented, NAD Head: atraumatic, normocephalic Eyes: EOMI, PERRL, nl conjunctiva, nl lids, nl sclera ENMT: nl external ears & nose, nl lips & teeth, nl nasal mucosa & septum Neck: non-tender, supple Respiratory: + right side wheezing Cardiovascular: nl pulses, regular rate and rhythm Gastrointestinal: bowel sounds, hepatomegaly, soft, tender (Mild tenderness near incision sites Musculoskeletal: nl extremities to inspection Extremities: normal pulses Results Result Diagram: 03/19/17 1400 03/19/17 0523 Results 24 hrs Laboratory Tests Test 03/19/17 05:23 03/19/17 14:00 White Blood Count 9.5 11.1 H Red Blood Count 2.81 L 2.99 L Hemoglobin 8.0 L 8.6 L Hematocrit 24.5 L 25.1 L Mean Corpuscular Volume 87.2 83.9 Mean Corpuscular Hemoglobin 28.5 L 28.8 L Mean Corpuscular Hemoglobin Concent 32.7 34.3 Red Cell Distribution Width 16.3 H 16.0 H Platelet Count 568 H 596 H Mean Platelet Volume 9.7 9.1 Neutrophils % 66.2 69.8 Lymphocytes % 23.0 18.6 Monocytes % 7.3 8.9 Eosinophils % 2.5 1.7 Basophils % 0.3 0.3 Nucleated Red Blood Cells % 0.0 0.0 Neutrophils # 6.3 7.7 H Lymphocytes # 2.2 2.1 Monocytes # 0.7 1.0 H Eosinophils # 0.2 0.2 Basophils # 0.0 0.0 Nucleated Red Blood Cells # 0.0 0.0 Sodium Level 127 L Potassium Level 3.2 L Chloride Level 100 Carbon Dioxide Level 21 Anion Gap 9 Blood Urea Nitrogen 6 L Creatinine 1.05 Glucose Level 301 H Calcium Level 7.1 L Medications Medications Current Medications Ondansetron HCl (Zofran Inj) 4 mg Q6H PRN IV N/V Last administered on 03/04/17 09:39; Admin Dose 4 MG; Start 03/01/17 at 08:00 Allopurinol (Zyloprim) 100 mg BID PO Last administered on 03/19/17 20:54; Admin Dose 100 MG; Start 03/01/17 at 21:00 Enalapril Maleate (Vasotec) 10 mg DAILY PO Last administered on 03/19/17 09:13 ; Admin Dose 10 MG; Start 03/02/17 at 09:00 Metoprolol Tartrate (Lopressor) 25 mg DAILY PO Last administered on 03/19/17 09:13; Admin Dose 25 MG; Start 03/02/17 at 09:00 Pantoprazole (Protonix Iv) 40 mg BID@18 IV Last administered on 03/19/17 17 :13; Admin Dose 40 MG; Start 03/04/17 at 18:00 Acetaminophen/ Hydrocodone Bitart ([place] (5/325)) 1 tab Q4H PRN PO PAIN LEVEL 7 -10 Last administered on 03/14/17 05:48; Admin Dose 1 TAB; Start 03/08/17 at 15: 30 Acetaminophen (Tylenol Tab) 650 mg Q6H PRN PO PAIN AND OR ELEVATED TEMP Last administered on 03/19/17 17:13; Admin Dose 650 MG; Start 03/08/17 at 23:30 Tramadol HCl (Ultram) 50 mg Q6H PRN PO PAIN Last administered on 03/09/17 11:47 ; Admin Dose 50 MG; Start 03/08/17 at 23:30 Sucralfate (Carafate Susp) 1 gm QID PO Last administered on 03/19/17 20:54; Admin Dose 1 GM; Start 03/10/17 at 21:00 Levofloxacin (Levaquin) 750 mg Q48H PO Last administered on 03/19/17 12:23; Admin Dose 750 MG; Start 03/13/17 at 12:00 Morphine Sulfate (morphine) 2 mg Q4H PRN IV severe pain ; Start 03/15/17 at 19: 00 NARAYAN FERNÁNDEZ MD Mar 19, 2017 22:05
[2017-03-20] MEDS: PANTOPRAZOLE 40 MG INJ IV SCH (05:24)
[2017-03-20 06:11] LABS: ADD SCAN DIFF NO
[2017-03-20 06:14] LABS: BASOPHILS % 0.1 % (0.0-2.0); EOSINOPHILS % 0.1 % (0.0-7.0); HEMATOCRIT 24.8 % (42.0-52.0); HEMOGLOBIN 8.5 g/dl (14.0-18.0); LYMPHOCYTES # 1.3 10^3/ul (0.8-2.9); LYMPHOCYTES % 17.1 % (15.0-51.0); MEAN CORPUSCULAR HEMOGLOBIN 28.8 pg (29.0-33.0); MEAN CORPUSCULAR HGB CONC 34.3 g/dl (32.0-37.0); MEAN CORPUSCULAR VOLUME 84.1 fl (82.0-101.0); MEAN PLATELET VOLUME 9.6 fl (7.4-10.4); MONOCYTE # 0.3 10^3/ul (0.3-0.9); MONOCYTES % 4.3 % (0.0-11.0); NEUTROPHILS % 77.6 % (39.0-77.0); PLATELET COUNT 605 10^3/UL (140-415); RED BLOOD COUNT 2.95 10^6/ul (4.70-6.10); RED CELL DISTRIBUTION WIDTH 15.9 % (11.5-14.5); WHITE BLOOD COUNT 7.7 10^3/ul (4.8-10.8)
[2017-03-20 06:30] LABS: INR 1.21; PROTIME 15.4 Sec (12.2-14.2); PT RATIO 1.2
[2017-03-20 06:31] LABS: PARTIAL THROMBOPLASTIN TIME 40.8 Sec (25.0-35.0)
[2017-03-20 07:03] LABS: ALBUMIN 2.8 g/dl (3.3-4.9); ALBUMIN/GLOBULIN RATIO 1.03; BILIRUBIN,INDIRECT 0.2 mg/dl (0-1.1); BILIRUBIN,TOTAL 0.2 mg/dl (0.2-1.3); CALCIUM 7.4 mg/dl (8.4-10.2); CREATININE 1.13 mg/dl (0.61-1.24); POTASSIUM 3.7 mmol/L (3.5-5.1); TOTAL PROTEIN 5.5 g/dl (6.1-8.1)
[2017-03-20 07:27] VITALS: BP 128/75; RESP 18
[2017-03-20] MEDS: ENALAPRIL 10 MG TAB PO SCH (09:37)
[2017-03-20] MEDS: ALLOPURINOL 100 MG TAB PO SCH ×2 (09:37→20:42)
[2017-03-20] MEDS: SUCRALFATE (100 MG/ML) 10ML CUP PO SCH ×4 (09:37→20:42)
[2017-03-20] MEDS: METOPROLOL 25 MG TAB PO SCH (09:38)
--- NOTE | 2017-03-20 13:23 | PN ---
Date/Time of Note Date/Time of Note DATE: 03/20/17 TIME: 13:22 Assessment/Plan VTE Prophylaxis VTE Prophylaxis Intervention: SCD's Lines/Catheters IV Catheter Type (from Nrsg): [place] Lock Urinary Cath still in place: No Assessment/Plan Assessment/Plan 86 yo M admitted for abd pain found to have gallstone pancreatitis as well as duodenal ulcer. Had some abd pain yesterday but imaging without evidence of ileus. 1. gallstone pancreatitis: sp lap ashleigh 6.2, with subsequent bile leak, s/p ERCP 6.8 with biliary stent placement.- s/p Removal of SHANTE drain on 03/17/17 will need gen surg f/u ~6.30 (2 weeks after drain was pulled) 2. duodenal ulcer: seen on EGD 6.8. cont BID PPI x8 weeks today cont this regimen at discharge, f/u with GI in 12 weeks for biliary stent exchange/removal 3. HTN: stable- cont home meds 4. gout flare: resolved. cont home allopurinol 5. diet: cont PO diet 6. DVT prophx: SCDs discharge tomorrow if abd pain resolved stop levoflox as rationale unclear. Pt had SHANTE drain pulled 3 days ago and gen surg not requesting this be continued Subjective 24 Hr Interval Summary Free Text/Dictation Pt eating without sig pain and having BMs. Son wonders if pt needs vitamin shots Exam/Review of Systems Vital Signs Vitals Vital Signs Date Time Temp Pulse Resp B/P Pulse Ox O2 Delivery O2 Flow Rate FiO2 03/20/17 07:27 98.1 91 18 128/75 97 03/19/17 20:00 Nasal Cannula 2.0 Intake and Output 03/19/17 03/19/17 03/20/17 15:00 23:00 07:00 Intake Total 360 ml 300 ml Output Total 550 ml 400 ml Balance -190 ml -100 ml Exam nad, sitting in chair no mrg lungs clear abd soft no rashes Results Result Diagram: 03/20/1752203/20/17 0523 Results 24 hrs Laboratory Tests Test 03/19/17 14:00 03/20/17 05:23 White Blood Count 11.1 H 7.7 # Red Blood Count 2.99 L 2.95 L Hemoglobin 8.6 L 8.5 L Hematocrit 25.1 L 24.8 L Mean Corpuscular Volume 83.9 84.1 Mean Corpuscular Hemoglobin 28.8 L 28.8 L Mean Corpuscular Hemoglobin Concent 34.3 34.3 Red Cell Distribution Width 16.0 H 15.9 H Platelet Count 596 H 605 H Mean Platelet Volume 9.1 9.6 Neutrophils % 69.8 77.6 H Lymphocytes % 18.6 17.1 Monocytes % 8.9 4.3 Eosinophils % 1.7 0.1 Basophils % 0.3 0.1 Nucleated Red Blood Cells % 0.0 0.0 Neutrophils # 7.7 H 6.0 Lymphocytes # 2.1 1.3 Monocytes # 1.0 H 0.3 Eosinophils # 0.2 0.0 Basophils # 0.0 0.0 Nucleated Red Blood Cells # 0.0 0.0 Prothrombin Time 15.4 H Prothrombin Time Ratio 1.2 INR International Normalized Ratio 1.21 Activated Partial Thromboplast Time 40.8 H Sodium Level 125 L Potassium Level 3.7 Chloride Level 97 Carbon Dioxide Level 20 L Anion Gap 12 Blood Urea Nitrogen 7 Creatinine 1.13 Glucose Level 93 # Calcium Level 7.4 L Total Bilirubin 0.2 Direct Bilirubin 0.00 Indirect Bilirubin 0.2 Aspartate Amino Transf (AST/SGOT) 26 Alanine Aminotransferase (ALT/SGPT) 28 Alkaline Phosphatase 83 Total Protein 5.5 L Albumin 2.8 L Globulin 2.70 Albumin/Globulin Ratio 1.03 Vitamin B12 Level > 1000 H Medications Medications Current Medications Ondansetron HCl (Zofran Inj) 4 mg Q6H PRN IV N/V Last administered on 03/04/17 09:39; Admin Dose 4 MG; Start 03/01/17 at 08:00 Allopurinol (Zyloprim) 100 mg BID PO Last administered on 03/20/17 09:37; Admin Dose 100 MG; Start 03/01/17 at 21:00 Enalapril Maleate (Vasotec) 10 mg DAILY PO Last administered on 03/20/17 09:37 ; Admin Dose 10 MG; Start 03/02/17 at 09:00 Metoprolol Tartrate (Lopressor) 25 mg DAILY PO Last administered on 03/20/17 09:38; Admin Dose 25 MG; Start 03/02/17 at 09:00 Pantoprazole (Protonix Iv) 40 mg BID@18 IV Last administered on 03/20/17 05 :24; Admin Dose 40 MG; Start 03/04/17 at 18:00 Acetaminophen/ Hydrocodone Bitart ([place] (5/325)) 1 tab Q4H PRN PO PAIN LEVEL 7 -10 Last administered on 03/14/17 05:48; Admin Dose 1 TAB; Start 03/08/17 at 15: 30 Acetaminophen (Tylenol Tab) 650 mg Q6H PRN PO PAIN AND OR ELEVATED TEMP Last administered on 03/19/17 17:13; Admin Dose 650 MG; Start 03/08/17 at 23:30 Tramadol HCl (Ultram) 50 mg Q6H PRN PO PAIN Last administered on 03/09/17 11:47 ; Admin Dose 50 MG; Start 03/08/17 at 23:30 Sucralfate (Carafate Susp) 1 gm QID PO Last administered on 03/20/17 09:37; Admin Dose 1 GM; Start 03/10/17 at 21:00 Levofloxacin (Levaquin) 750 mg Q48H PO Last administered on 03/19/17 12:23; Admin Dose 750 MG; Start 03/13/17 at 12:00 Morphine Sulfate (morphine) 2 mg Q4H PRN IV severe pain ; Start 03/15/17 at 19: 00 LORI MIRANDA MD Mar 20, 2017 13:23
[2017-03-20] MEDS: PANTOPRAZOLE (EC) 40 MG TAB PO SCH (17:52)
[2017-03-20 19:51] VITALS: BP_SYST 136; BP_SYST 174; BP_DIAS 101; BP_DIAS 65; RESP 18
--- NOTE | 2017-03-20 23:17 | CONS ---
Date/Time of Note Date/Time of Note DATE: 03/20/17 TIME: 23:17 Assessment/Plan Assessment/Plan Chief Complaint/Hosp Course Anemia, likely secondary to iron deficiency, with a history of gastrointestinal bleed in the past requiring blood transfusion. Hemoglobin DOWN TODAY MONITOR FOR BLEEDING DROP H/H - NOTED REPEATED H/H- SL BETTER NO BLEEDING PT MIGHT NEED PRBC PRIOR TO DC Leukocytosis, likely secondary to gallstone pancreatitis THROMBOCYTOSIS- REACTIVE CONT TO MONITOR Gallstone pancreatitis. Abdominal pain, most likely secondary to above.. Chronic kidney disease. History of gout. History of hypertension, blood pressure within acceptable range. 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 Problems: Consultation Date/Type/Reason Admit Date/Time March 01, 2017 at 05:46 Initial Consult Date 03/01/17 Type of Consultation: HEMEON Referring Provider: MAGNOLIA PIERRE MD 24 HR Interval Summary Free Text/Dictation all noted for pos dc today Exam/Review of Systems Vital Signs Vitals Vital Signs Date Time Temp Pulse Resp B/P Pulse Ox O2 Delivery O2 Flow Rate FiO2 03/20/17 19:51 97.5 84 18 136/65 99 03/19/17 20:00 Nasal Cannula 2.0 Intake and Output 03/19/17 03/19/17 03/20/17 15:00 23:00 07:00 Intake Total 360 ml 300 ml Output Total 550 ml 400 ml Balance -190 ml -100 ml Exam Constitutional: alert, oriented, NAD Head: atraumatic, normocephalic Eyes: EOMI, PERRL, nl conjunctiva, nl lids, nl sclera ENMT: nl external ears & nose, nl lips & teeth, nl nasal mucosa & septum Neck: non-tender, supple Respiratory: + right side wheezing Cardiovascular: nl pulses, regular rate and rhythm Gastrointestinal: bowel sounds, hepatomegaly, soft, tender (Mild tenderness near incision sites), No ascites, No distended, No mass, + drain in place Musculoskeletal: nl extremities to inspection Extremities: normal pulses Results Result Diagram: 03/20/1723 03/20/1723 Results 24 hrs Laboratory Tests Test 03/20/17 05:23 White Blood Count 7.7 # Red Blood Count 2.95 L Hemoglobin 8.5 L Hematocrit 24.8 L Mean Corpuscular Volume 84.1 Mean Corpuscular Hemoglobin 28.8 L Mean Corpuscular Hemoglobin Concent 34.3 Red Cell Distribution Width 15.9 H Platelet Count 605 H Mean Platelet Volume 9.6 Neutrophils % 77.6 H Lymphocytes % 17.1 Monocytes % 4.3 Eosinophils % 0.1 Basophils % 0.1 Nucleated Red Blood Cells % 0.0 Neutrophils # 6.0 Lymphocytes # 1.3 Monocytes # 0.3 Eosinophils # 0.0 Basophils # 0.0 Nucleated Red Blood Cells # 0.0 Prothrombin Time 15.4 H Prothrombin Time Ratio 1.2 INR International Normalized Ratio 1.21 Activated Partial Thromboplast Time 40.8 H Sodium Level 125 L Potassium Level 3.7 Chloride Level 97 Carbon Dioxide Level 20 L Anion Gap 12 Blood Urea Nitrogen 7 Creatinine 1.13 Glucose Level 93 # Calcium Level 7.4 L Total Bilirubin 0.2 Direct Bilirubin 0.00 Indirect Bilirubin 0.2 Aspartate Amino Transf (AST/SGOT) 26 Alanine Aminotransferase (ALT/SGPT) 28 Alkaline Phosphatase 83 Total Protein 5.5 L Albumin 2.8 L Globulin 2.70 Albumin/Globulin Ratio 1.03 Vitamin B12 Level > 1000 H Medications Medications Current Medications Ondansetron HCl (Zofran Inj) 4 mg Q6H PRN IV N/V Last administered on 03/04/17 09:39; Admin Dose 4 MG; Start 03/01/17 at 08:00 Allopurinol (Zyloprim) 100 mg BID PO Last administered on 03/20/17 20:42; Admin Dose 100 MG; Start 03/01/17 at 21:00 Enalapril Maleate (Vasotec) 10 mg DAILY PO Last administered on 03/20/17 09:37 ; Admin Dose 10 MG; Start 03/02/17 at 09:00 Metoprolol Tartrate (Lopressor) 25 mg DAILY PO Last administered on 03/20/17 09:38; Admin Dose 25 MG; Start 03/02/17 at 09:00 Acetaminophen/ Hydrocodone Bitart ([place] (5/325)) 1 tab Q4H PRN PO PAIN LEVEL 7 -10 Last administered on 03/14/17 05:48; Admin Dose 1 TAB; Start 03/08/17 at 15: 30 Acetaminophen (Tylenol Tab) 650 mg Q6H PRN PO PAIN AND OR ELEVATED TEMP Last administered on 03/19/17 17:13; Admin Dose 650 MG; Start 03/08/17 at 23:30 Tramadol HCl (Ultram) 50 mg Q6H PRN PO PAIN Last administered on 03/09/17 11:47 ; Admin Dose 50 MG; Start 03/08/17 at 23:30 Sucralfate (Carafate Susp) 1 gm QID PO Last administered on 03/20/17 20:42; Admin Dose 1 GM; Start 03/10/17 at 21:00 Morphine Sulfate (morphine) 2 mg Q4H PRN IV severe pain ; Start 03/15/17 at 19: 00 Pantoprazole (Protonix Tab) 40 mg BID@06,18 PO Last administered on 03/20/17 17:52; Admin Dose 40 MG; Start 03/20/17 at 18:00 NARAYAN FERNÁNDEZ MD Mar 20, 2017 23:17
[2017-03-21] MEDS: PANTOPRAZOLE (EC) 40 MG TAB PO SCH ×2 (05:11→18:07)
[2017-03-21 08:00] VITALS: BP 117/62; PULSE 107; RESP 18
--- NOTE | 2017-03-21 09:59 | CONS ---
Date/Time of Note Date/Time of Note DATE: 03/21/17 TIME: 09:59 Assessment/Plan Assessment/Plan Chief Complaint/Hosp Course Anemia, likely secondary to iron deficiency, with a history of gastrointestinal bleed in the past requiring blood transfusion. Hemoglobin DOWN TODAY MONITOR FOR BLEEDING DROP H/H - NOTED REPEATED H/H- SL BETTER NO BLEEDING PT MIGHT NEED PRBC PRIOR TO DC Leukocytosis, likely secondary to gallstone pancreatitis THROMBOCYTOSIS- REACTIVE CONT TO MONITOR Gallstone pancreatitis. Abdominal pain, most likely secondary to above.. Chronic kidney disease. History of gout. History of hypertension, blood pressure within acceptable range. 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 Problems: Consultation Date/Type/Reason Admit Date/Time March 01, 2017 at 05:46 Initial Consult Date 03/01/17 Type of Consultation: HEMEON Referring Provider: MAGNOLIA PIERRE MD 24 HR Interval Summary Free Text/Dictation no new events pos dc today Exam/Review of Systems Vital Signs Vitals Vital Signs Date Time Temp Pulse Resp B/P Pulse Ox O2 Delivery O2 Flow Rate FiO2 03/20/17 19:51 97.5 84 18 136/65 99 03/19/17 20:00 Nasal Cannula 2.0 Intake and Output 03/20/17 03/20/17 03/21/17 15:00 23:00 07:00 Intake Total 920 ml 250 ml Output Total 200 ml 850 ml Balance 720 ml -600 ml Exam Constitutional: alert, oriented, NAD Head: atraumatic, normocephalic Eyes: EOMI, PERRL, nl conjunctiva, nl lids, nl sclera ENMT: nl external ears & nose, nl lips & teeth, nl nasal mucosa & septum Neck: non-tender, supple Respiratory: + right side wheezing Cardiovascular: nl pulses, regular rate and rhythm Gastrointestinal: bowel sounds, hepatomegaly, soft, tender (Mild tenderness near incision sites), No ascites, No distended, No mass, + drain in place Musculoskeletal: nl extremities to inspection Extremities: normal pulses Results Result Diagram: 03/20/1752203/20/17522 Medications Medications Current Medications Ondansetron HCl (Zofran Inj) 4 mg Q6H PRN IV N/V Last administered on 03/04/17t 09:39; Admin Dose 4 MG; Start 03/01/17 at 08:00 Allopurinol (Zyloprim) 100 mg BID PO Last administered on 03/20/17 20:42; Admin Dose 100 MG; Start 03/01/17 at 21:00 Enalapril Maleate (Vasotec) 10 mg DAILY PO Last administered on 03/20/17 09:37 ; Admin Dose 10 MG; Start 03/02/17 at 09:00 Metoprolol Tartrate (Lopressor) 25 mg DAILY PO Last administered on 03/20/17 09:38; Admin Dose 25 MG; Start 03/02/17 at 09:00 Acetaminophen/ Hydrocodone Bitart ([place] (5/325)) 1 tab Q4H PRN PO PAIN LEVEL 7 -10 Last administered on 03/14/17 05:48; Admin Dose 1 TAB; Start 03/08/17 at 15: 30 Acetaminophen (Tylenol Tab) 650 mg Q6H PRN PO PAIN AND OR ELEVATED TEMP Last administered on 03/19/17 17:13; Admin Dose 650 MG; Start 03/08/17 at 23:30 Tramadol HCl (Ultram) 50 mg Q6H PRN PO PAIN Last administered on 03/09/17 11:47 ; Admin Dose 50 MG; Start 03/08/17 at 23:30 Sucralfate (Carafate Susp) 1 gm QID PO Last administered on 03/20/17 20:42; Admin Dose 1 GM; Start 03/10/17 at 21:00 Morphine Sulfate (morphine) 2 mg Q4H PRN IV severe pain ; Start 03/15/17 at 19: 00 Pantoprazole (Protonix Tab) 40 mg BID@ PO Last administered on 03/21/17 05:11; Admin Dose 40 MG; Start 03/20/17 at 18:00 NARAYAN FERNÁNDEZ MD Mar 21, 2017 09:59
[2017-03-21] MEDS: METOPROLOL 25 MG TAB PO SCH (10:46)
[2017-03-21] MEDS: SUCRALFATE (100 MG/ML) 10ML CUP PO SCH ×3 (10:46→18:07)
[2017-03-21] MEDS: ENALAPRIL 10 MG TAB PO SCH (10:47)
[2017-03-21] MEDS: ALLOPURINOL 100 MG TAB PO SCH (10:47)
[2017-03-21] MEDS: ACETAMINOPHEN 325 MG TAB PO PRN (10:52)
[2017-03-21] MEDS ORDERED: PANT40TA4 PO (14:28)
--- NOTE | 2017-03-21 14:29 | PDOCDIS ---
Discharge Instructions CONDITION Patient Condition: Good HOME CARE INSTRUCTIONS: Special Diet: LOW CHOLESTEROL/FAT/NA ACTIVITY: Activity Restrictions: Slowly Increase Activity FOLLOW UP/APPOINTMENTS Appointments General surgery/Dr Tamez in 2 weeks Office Address [address] [facility] [address] [place] [address] Office Follow up with gastroenterology in 2 months to discuss your stomach ulcer and schedule getting your stents exchanged Dr Burgess Office Address [address] [facility] [place] [address] Office LORI MIRANDA MD Mar 21, 2017 14:29
--- NOTE | 2017-03-21 14:33 | DS ---
Date/Time of Note Date/Time of Note DATE: 03/21/17 TIME: 14:33 Discharge Summary Admission/Discharge Info Admit Date/Time March 01, 2017 at 05:46 Discharge Date/Time Final Diagnosis gallstone pancreatitis Patient Condition: Good Consults gastroenterology, general surgery, hematology Procedures 6.2 Operation(s) Performed: 1. 3 port laparoscopic cholecystectomy 2. Laparoscopic liver wedge resection biopsy 3. Ventral hernia repair, primary PATH REPORTS FROM 6.2 SURGERY A-Gallbladder: -- Chronic cholecystitis, mild. -- Active atypia of gallbladder epithelium. -- There is no evidence of malignancy. -- Cholelithiasis (gross). B-Liver, wedge biopsy: -- Macrovesicular steatosis, mild. -- There is no evidence of hepatitis, cirrhosis or malignancy. 6.8 Endoscopic retrograde cholangiopancreatography with sphincterotomy and stent placement. IMPRESSION 1. Large duodenal ulcer with no stigmata of recent bleeding. 2. Significant cystic duct leak. 3. Post-endoscopic retrograde sphincterotomy. 4. Post-endoscopic placement of a biliary stent Turk[place] 10, 7 cm stent. Hx of Present Illness The patient is an 86-year-old female with a history of hypertension, chronic kidney disease, anemia, GI bleed with history of blood transfusion and gout who was brought to the ER for abdominal pain and diarrhea. Symptoms started yesterday afternoon. The pain is diffuse but mainly located in the right upper quadrant area. Diarrhea is described as loose to watery and yellowish in color. When the patient presented to the ER, initial vitals were stable. Laboratory value shows a BUN of 26, creatinine 1.7. Lipase almost the end of 70. WBC 14.5 , hemoglobin 11.8, platelet count 469. CT abdomen and pelvis shows septal infiltration in the region of the pancreatic head, possibly suggesting mild pancreatitis or peptic ulcer disease. There is also cholelithiasis and acute- appearing burst fracture at T12 and L1, worsened since last examination, but the L1 fracture is new. Right upper quadrant ultrasound shows cholelithiasis. The patient was given morphine and Zosyn while she was in the ER. Hospital Course 86 yo M admitted for abd pain found to have gallstone pancreatitis. Pt underwent lap ashleigh with liver biopsy 6.2, post operative course c/b bile leak. GI was consulted and pt underwent ERCP 6.8 with biliary stent placement. ERCP also notable for incidental finding of duodenal ulcer for which pt was started on high dose PPIs to be continued for 8 weeks. SHANTE drain from lap ashleigh was pulled 6.14 Pt's platelets noted to be elevated during his stay; hematology consulted and this was deemed to be reactive thrombocytosis. liver biopsy returned with hepatic steatosis. Hospital stay also notable for a gout flare involving pt's feet. Pt received a short course of colchicine. Pt with hgb 10 on admission, down to 8 after his surgery. Pt received 1 unit of pRBC's prior to discharge. POST DISCHARGE FOLLOW UPS Gen surg in 2 weeks GI in 2-3 mos for f/u duodenal ulcer and biliary stent CHANGES FROM ADMIT MEDS NEW BID PPI x 60 days Home Meds Active Scripts Pantoprazole* (Pantoprazole*) 40 Mg Tablet.dr, 40 MG PO BID for 60 Days, #120 Prov:LORI MIRANDA MD 03/21/17 Docusate Sodium* (Colace*) 100 Mg Capsule, 100 MG PO TID, #30 CAP Prov:LAVON HUNTER MD 12/23/16 Hydrocodone/Acetaminophen ([place] 10-325 Tablet) 1 Each Tablet, 1 TAB PO Q6H Y for PAIN, #7 TAB Prov:LAVON HUNTER MD 12/23/16 Tramadol HCl (Tramadol HCl) 50 Mg Tablet, 50 MG PO Q6H Y for PAIN, #30 TAB Prov:SUZIE COPELAND 03/26/16 Metoprolol Tartrate* (Lopressor*) 25 Mg Tab, 25 MG PO DAILY for 30 Days, TAB Prov:SUZIE COPELAND 03/26/16 Reported Medications Enalapril Maleate* (Enalapril Maleate*) 10 Mg Tablet, 10 MG PO DAILY, TAB 09/29/16 Allopurinol* (Allopurinol*) 100 Mg Tablet, 200 MG PO BID, TAB 09/29/16 Allopurinol* (Zyloprim*) 100 Mg Tablet, 100 MG PO BID 02/17/13 Follow-up Plan gen surg in 2 weeks GI in 2-3 mos for f/u ulcer and biliary stent f/u Primary Care Provider Tasha Quesada MD Time spent on discharge: > 30 minutes LORI MIRANDA MD Mar 21, 2017 14:33 LORI MIRANDA MD Mar 21, 2017 14:33 LORI MIRANDA MD Mar 21, 2017 14:33
== END 2017-03-21 21:10 | disposition home or self-care (01) | DRG 406 ==
LOC: E/R 22:23 → MS1 03-01 05:46 → MS2 03-14 06:13
PROVIDERS: ADMIT Internal Medicine; ATTEND Internal Medicine
PROC: 0FB04ZZ Excision of Liver, Percutaneous Endoscopic Approach (ICD-10-PCS; 2017-03-05)
PROC: 0WQF4ZZ Repair Abdominal Wall, Percutaneous Endoscopic Approach (ICD-10-PCS; 2017-03-05)
PROC: 0FT44ZZ Resection of Gallbladder, Percutaneous Endoscopic Approach (ICD-10-PCS; principal; 2017-03-05 12:30)
PROC: 0F788DZ Dilation of Cystic Duct with Intraluminal Device, Via Natural or Artificial Opening Endoscopic (ICD-10-PCS; 2017-03-09)
PROC: 30233N1 Transfusion of Nonautologous Red Blood Cells into Peripheral Vein, Percutaneous Approach (ICD-10-PCS; 2017-03-21)
DX: K85.10 Biliary acute pancreatitis without necrosis or infection (principal); N17.9 Acute kidney failure, unspecified; K26.9 Duodenal ulcer, unspecified as acute or chronic, without hemorrhage or perforation; E66.9 Obesity, unspecified; I12.9 Hypertensive chronic kidney disease with stage 1 through stage 4 chronic kidney disease, or unspecified chronic kidney disease; M10.9 Gout, unspecified; D47.3 Essential (hemorrhagic) thrombocythemia; M84.48XS Pathological fracture, other site, sequela; K43.9 Ventral hernia without obstruction or gangrene; D50.9 Iron deficiency anemia, unspecified; N18.9 Chronic kidney disease, unspecified; D72.829 Elevated white blood cell count, unspecified; Z68.30 Body mass index [BMI] 30.0-30.9, adult
CPT/HCPCS: 36430; 36600; 71010; 74000; 74176; 74181; 74330; 76705; 78226; 80048; 80053; 80061; 80076; 81003; 82150; 82607; 82803; 83036; 83605; 83690; 83735; 84100; 85025; 85610; 85730; 86850; 86900; 86901; 86920; 87081; 87086; 88304; 88307; 88313; 93005; 94640; 94660; 94664; 96361; 96374; 96375; 96376; 97110; 97116; 97162; 97530; J1940; A9537; C2617; C9113; J0690; J1170; J2250; J2270; J2370; J2405; J2543; J2710; J2795; J3010; J3475; J3480; J7040; J7042; P9016; Q9967

== ENCOUNTER 2017-03-25 15:50 | Inpatient (IN) | payer OTHER ==
[~2017-03-25] VITALS: Ht 157.5 cm; Wt 61.2 kg
[~2017-03-25 15:50] MED LIST changes: +PANT40TA4 PO
[2017-03-25] MEDS ORDERED: SOD CHLORIDE 0.9% 1,000 ML IV STA (15:53)
[2017-03-25 16:36] LABS: ADD SCAN DIFF NO
[2017-03-25 16:40] LABS: BASOPHIL # 0.1 10^3/ul (0.0-0.1); BASOPHILS % 0.5 % (0.0-2.0); EOSINOPHILS # 0.2 10^3/ul (0.0-0.5); EOSINOPHILS % 2.3 % (0.0-7.0); HEMATOCRIT 33.4 % (42.0-52.0); HEMOGLOBIN 11.3 g/dl (14.0-18.0); LYMPHOCYTES # 2.6 10^3/ul (0.8-2.9); LYMPHOCYTES % 25.4 % (15.0-51.0); MEAN CORPUSCULAR HEMOGLOBIN 28.8 pg (29.0-33.0); MEAN CORPUSCULAR HGB CONC 33.8 g/dl (32.0-37.0); MEAN PLATELET VOLUME 9.4 fl (7.4-10.4); MONOCYTE # 0.7 10^3/ul (0.3-0.9); MONOCYTES % 6.8 % (0.0-11.0); NEUTROPHIL # 6.6 10^3/ul (1.6-7.5); PLATELET COUNT 684 10^3/UL (140-415); RED BLOOD COUNT 3.93 10^6/ul (4.70-6.10); WHITE BLOOD COUNT 10.3 10^3/ul (4.8-10.8)
[2017-03-25 16:55] LABS: INR 1.01; PROTIME 13.3 Sec (12.2-14.2)
[2017-03-25 16:56] LABS: PARTIAL THROMBOPLASTIN TIME 33.9 Sec (25.0-35.0)
--- NOTE | 2017-03-25 17:01 | RADRPT ---
PROCEDURE: XR Chest 1 View. CLINICAL INDICATION: Abnormal breath sounds, weakness. TECHNIQUE: AP view of the chest was obtained. COMPARISON: March 05, 2017 FINDINGS: The heart size is within normal limits. Calcified atherosclerosis is noted in the aorta. Atelectasi s is noted at the lung bases. Chronic mild interstitial prominence is seen in both lungs. Calcifie d granuloma is noted in the right upper lobe. No consolidations are identified. No pneumothorax is seen. Osseous structures are intact. IMPRESSION: Calcified atherosclerosis in the aorta. Atelectasis in the bilateral lower lobes. Chronic mild interstitial prominence in both lungs. Calcified granuloma in the right upper lobe. RPTAT: AA .Ollie Temple MD, Date Time Electronically viewed and signed by .Ollie Temple MD, on 03/25/2017 17:01 .P/
[2017-03-25 17:06] LABS: ALBUMIN 3.6 g/dl (3.3-4.9); ALBUMIN/GLOBULIN RATIO 1.12; BILIRUBIN,INDIRECT 0.3 mg/dl (0-1.1); BILIRUBIN,TOTAL 0.3 mg/dl (0.2-1.3); CALCIUM 7.8 mg/dl (8.4-10.2); CREATININE 1.35 mg/dl (0.61-1.24); POTASSIUM 3.9 mmol/L (3.5-5.1); TOTAL PROTEIN 6.8 g/dl (6.1-8.1)
[2017-03-25 17:18] LABS: TROPONIN-I 0.037 ng/ml (0.00-0.12)
[2017-03-25] MEDS ORDERED: morphine 4 MG/ML VIAL IV STA (17:25)
[2017-03-25] MEDS ORDERED: SOD CHLORIDE 0.9% 100 ML ONE (18:22)
[2017-03-25] MEDS ORDERED: IOHEXOL 300MG/ML 150 ML BTL ONE (18:22)
--- NOTE | 2017-03-25 19:10 | RADRPT ---
PROCEDURE: CT abdomen and pelvis with. contrast. CLINICAL INDICATION: Abdominal pain. TECHNIQUE: IV contrast enhanced CT examination of the abdomen and pelvis, with axial, sagittal and coronal reformatted images. 100 cc Omnipaque-300 nonionic IV contrast were employed. Automated dos e exposure control was employed. CTDI: 8.92 mGy and DLP: 538.5 mGy-cm. COMPARISON: 03/01/2017. FINDINGS: CT abdomen: New dense atelectasis versus consolidation at the anterior and anterior lateral right costophrenic a ngle. Mild dependent atelectasis at lung bases. There is a degree of cardiomegaly, without pericar dial effusion. New surgical changes of cholecystectomy, with a new biliary stent. No evident biliary dilatation. Small fluid collection with enhancing rim is seen at the lateral gallbladder fossa and measures 67 x 18 x 9 mm, suggesting a small abscess. A thin portion of this abscess appears to extend from the la teral margin liver to the region of the cystic duct remnant. The abscess measures about 67 mm in the transverse dimension. Liver is otherwise unremarkable, with a 2 cm cyst. The spleen is normal in size and homogeneous in d ensity. The stomach is partially collapsed, but is grossly unremarkable. The pancreas as visualize d is normal. The adrenal glands are symmetric and normal. The kidneys are symmetrically unremarkab le as well. No renal calculus or obstructive uropathy or mass lesion is seen. The aorta is of normal caliber. Aortic vascular calcifications are present. There is no retroperit mckeon lymphadenopathy. The rosemary hepatis region is clear. The bowel and mesentery, as visualized, are equally unremarkable. CT pelvis: The small bowel loops situated within the pelvis are unremarkable. The pelvic organs are normal. T he pelvic sidewalls and inguinal regions are clear. The sigmoid colon and rectum are all unremarkab le. No mass, lymphadenopathy, or free fluid is seen. No acute inflammation is seen. The appendix is unremarkable. The surrounding osseous structures are remarkable for mild to moderate degenerative spondylosis of t he spine. Degenerative changes of the pubic symphysis and bilateral sacroiliac joints. T12 and L1 partial collapse again seen. 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 No osteolyti c or osteoblastic lesion is detected. IMPRESSION: 1. Interval changes of cholecystectomy, with am abscess in the lateral gallbladder fossa, and any t hin portion of the abscess appears to extend to the region of the cystic duct remnant. 2. New biliary stent, without intrahepatic or extrahepatic biliary dilatation. 3. New dense atelectasis versus airspace disease in the anterior and anterior lateral right costoph renic angle. RPTAT: [facility] Physician Edi Date Time Electronically viewed and signed by Kulwant Talbot Physician on 03/25/2017 19:10 RS/
[2017-03-25] MEDS ORDERED: PIPER-TAZO 3.375 GM IV (PMX) 100 ML IVPB ONE (19:30)
[2017-03-25] MEDS ORDERED: SOD CHLORIDE 0.9% 1,000 ML IV SCH (19:47)
--- NOTE | 2017-03-25 19:52 | ERA ---
ER Documentation Chief Complaint Date/Time DATE: 03/25/17 TIME: 19:49 Chief Complaint near syncopal episode and generalized weakness at clinic today HPI This is an 86-year-old male presents to the emergency room for evaluation of generalized weakness, and abdominal pain. The patient has had abdominal pain for the past 3 days and states that his abdominal pain is localized to the right portion of the abdomen. This patient did go to the clinic today and almost fainted because he was feeling weak. According to family members were at bedside this patient has not been eating over the past 3 days and has vomited one time. He denies any diarrhea or denies any blood in the vomit. Patient was brought in for further evaluation. According to family this patient did have his gallbladder removed and had another unknown procedure done at this hospital in the month of February ROS All systems reviewed and are negative except as per history of present illness. Medications Home Meds Active Scripts Pantoprazole* (Pantoprazole*) 40 Mg Tablet.dr, 40 MG PO BID for 60 Days, #120 Prov:LORI MIRANDA MD 03/21/17 Reported Medications Enalapril Maleate* (Enalapril Maleate*) 10 Mg Tablet, 10 MG PO DAILY, TAB 09/29/16 Allopurinol* (Zyloprim*) 100 Mg Tablet, 100 MG PO BID 02/17/13 Discontinued Reported Medications Allopurinol* (Allopurinol*) 100 Mg Tablet, 200 MG PO BID, TAB 09/29/16 Discontinued Scripts Docusate Sodium* (Colace*) 100 Mg Capsule, 100 MG PO TID, #30 CAP Prov:LAVON HUNTER MD 12/23/16 Hydrocodone/Acetaminophen ([place] 10-325 Tablet) 1 Each Tablet, 1 TAB PO Q6H Y for PAIN, #7 TAB Prov:LAVON HUNTER MD 12/23/16 Tramadol HCl (Tramadol HCl) 50 Mg Tablet, 50 MG PO Q6H Y for PAIN, #30 TAB Prov:SUZIE COPELAND 03/26/16 Metoprolol Tartrate* (Lopressor*) 25 Mg Tab, 25 MG PO DAILY for 30 Days, TAB Prov:SUZIE COPELAND 03/26/16 Allergies Allergies: Coded Allergies: No Known Allergy (Unverified , 03/25/17) PMhx/Soc History of Surgery: No Anesthesia Reaction: No Hx Neurological Disorder: No Hx Respiratory Disorders: No Hx Cardiac Disorders: Yes (HTN) Hx Psychiatric Problems: No Hx Miscellaneous Medical Probl: Yes (HTN,CKD,GI BLEED, GOUT) Hx Alcohol Use: No Hx Substance Use: No Hx Tobacco Use: No Smoking Status: Never smoker Physical Exam Vitals Vital Signs Date Time Temp Pulse Resp B/P Pulse Ox O2 Delivery O2 Flow Rate FiO2 03/25/17 17:49 86 20 122/80 93 03/25/17 16:19 88 20 125/81 93 03/25/17 15:51 98.6 56 20 103/58 93 Physical Exam INITIAL VITAL SIGNS: Reviewed by me GENERAL: The patient is well developed and appropriate for usual state of health in no apparent distress HEENT: Dry mucous members, pupils equal, round, and reactive to light. EOMI. There is no scleral icterus. NECK: C-spine is soft and supple, there is no meningismus. There is no cervical lymphadenopathy. LUNGS: Clear to auscultation bilaterally. There are no rales, wheezes or rhonchi. HEART: Regular rate and rhythm, no murmurs, clicks, rubs or gallops. ABDOMEN: Healing laparoscopic incision scars, healing incision site of right- sided SHANTE drain, mild tenderness to palpation in the right upper quadrant EXTREMITIES: There is no peripheral cyanosis or edema. No focal swelling or erythema. NEUROLOGICAL: The patient moves all four extremities with 5/5 strength. Cranial nerves II - XII are intact. Normal gait. Alert and oriented SKIN: There is no apparent rash or petechiae. HEME/LYMPHATIC: There is no evidence of excessive bruising or lymphedema. PSYCHIATRIC: The patient does not appear anxious or depressed. Result Diagram: 03/25/17 1630 03/25/17 1630 Results 24 hrs Laboratory Tests Test 03/25/17 16:30 White Blood Count 10.310^3/ul Red Blood Count 3.9310^6/ul Hemoglobin 11.3g/dl Hematocrit 33.4% Mean Corpuscular Volume 85.0fl Mean Corpuscular Hemoglobin 28.8pg Mean Corpuscular Hemoglobin Concent 33.8g/dl Red Cell Distribution Width 16.0% Platelet Count 28949^3/UL Mean Platelet Volume 9.4fl Neutrophils % 64.0% Lymphocytes % 25.4% Monocytes % 6.8% Eosinophils % 2.3% Basophils % 0.5% Nucleated Red Blood Cells % 0.0/100WBC Neutrophils # 6.610^3/ul Lymphocytes # 2.610^3/ul Monocytes # 0.710^3/ul Eosinophils # 0.210^3/ul Basophils # 0.110^3/ul Nucleated Red Blood Cells # 0.010^3/ul Prothrombin Time 13.3Sec Prothrombin Time Ratio 1.0 INR International Normalized Ratio 1.01 Activated Partial Thromboplast Time 33.9Sec Sodium Level 126mmol/L Potassium Level 3.9mmol/L Chloride Level 97mmol/L Carbon Dioxide Level 18mmol/L Anion Gap 15 Blood Urea Nitrogen 11mg/dl Creatinine 1.35mg/dl Glucose Level 99mg/dl Calcium Level 7.8mg/dl Total Bilirubin 0.3mg/dl Direct Bilirubin 0.00mg/dl Indirect Bilirubin 0.3mg/dl Aspartate Amino Transf (AST/SGOT) 32IU/L Alanine Aminotransferase (ALT/SGPT) 28IU/L Alkaline Phosphatase 108IU/L Troponin I 0.037ng/ml Total Protein 6.8g/dl Albumin 3.6g/dl Globulin 3.20g/dl Albumin/Globulin Ratio 1.12 Lipase 443U/L Current Medications Medications (Trade) Dose Ordered Sig/Karthikeyan Route PRN Reason Start Time Stop Time Status Last Admin Dose Admin Sodium Chloride (NS) 1,000 ml @ 1,000 mls/hr Q1H STAT IV 03/25/17 15:53 03/25/17 16:52 DC 03/25/17 16:12 Morphine Sulfate (morphine) 4 mg ONCE STAT IV 03/25/17 17:25 03/25/17 17:26 DC 03/25/17 17:46 IV Flush 10 ml 10 ml STK-MED ONCE .ROUTE 03/25/17 18:22 03/25/17 18:23 DC 03/25/17 18:22 Sodium Chloride (NS) 100 ml @ ud STK-MED ONCE .ROUTE 03/25/17 18:22 03/25/17 18:23 DC 03/25/17 18:22 Iohexol 150 ml 150 ml STK-MED ONCE .ROUTE 03/25/17 18:22 03/25/17 18:23 DC 03/25/17 18:22 Piperacillin Sod/ Tazobactam Sod (Zosyn 3.375gm/ 100 ml (Pmx)) 100 ml @ 200 mls/hr ONCE ONCE IVPB 03/25/17 19:30 03/25/17 19:59 Procedures/MDM CT abdomen pelvis with IV contrast: 1. Interval changes of cholecystectomy, with am abscess in the lateral gallbladder fossa, and any thin portion of the abscess appears to extend to the region of the cystic duct remnant. 2. New biliary stent, without intrahepatic or extrahepatic biliary dilatation. 3. New dense atelectasis versus airspace disease in the anterior and anterior lateral right costophrenic angle. Chest X-ray 1V Interpreted by me: Soft Tissue: No acute abnormalities Bones: No acute abnormalities Mediastinum/Cardiac Silhouette/Lungs: [No acute abnormalities] This 86-year-old male presents to the emergency room for evaluation of generalized weakness and abdominal pain. This patient is status post cholecystectomy with a ERCP and stent placed in the common bile duct for gallstones. This patient originally had gallstone pancreatitis. When I evaluated this patient he was tender in the right upper quadrant. I did obtain a CAT scan which does show abscess formation next to the cholecystectomy site. This patient does appear to be slightly dehydrated on my examination. Given this patient's age and postop abscess he will be placed in for admission at this time. He will be placed in for admission on [facility] floor under the care of Dr. Nikhil Cody Diagnosis: Primary Impression: Postoperative abscess Additional Impressions: Normocytic anemia Reactive thrombocytosis Hyponatremia Renal insufficiency Condition: Stable EARL PIERCE DO Mar 25, 2017 19:52
[2017-03-25] MEDS ORDERED: ACETAMINOPHEN 325 MG TAB PO PRN (20:00)
[2017-03-25] MEDS ORDERED: ONDANSETRON 4 MG INJ IV PRN (20:00)
[2017-03-25 20:06] LABS: ADD UMIC NO; UR ASCORBIC ACID NEGATIVE (NEGATIVE); UR BILIRUBIN (Dip) NEGATIVE (NEGATIVE); UR BLOOD (Dip) NEGATIVE (NEGATIVE); UR CLARITY CLEAR (CLEAR); UR COLOR YELLOW (YELLOW); UR GLUCOSE (Dip) NEGATIVE (NEGATIVE); UR KETONES (Dip) NEGATIVE (NEGATIVE); UR LEUKOCYTE ESTERASE (Dip) NEGATIVE Leu/ul (NEGATIVE); UR NITRITE (Dip) NEGATIVE (NEGATIVE); UR TOTAL PROTEIN (Dip) NEGATIVE (NEGATIVE); UR UROBILINOGEN (Dip) NEGATIVE (NEGATIVE)
[2017-03-25 23:30] VITALS: Ht 157.5 cm; Wt 61.2 kg
[2017-03-25 23:40] VITALS: BP 135/65; RESP 18
[2017-03-26] MEDS ORDERED: NACL 0.9% 3 ML SYG IV SCH (00:30)
[2017-03-26] MEDS ORDERED: ONDANSETRON 4 MG INJ IV PRN (00:30)
[2017-03-26] MEDS ORDERED: hydrALAzine 20 MG INJ IV PRN (00:30)
--- NOTE | 2017-03-26 01:15 | HP ---
DATE OF ADMISSION: 03/25/2017 CHIEF COMPLAINT: Decreased appetite, nausea and diarrhea. HISTORY OF PRESENT ILLNESS: The patient is an 86-year-old male who was recently discharged after a prolonged hospitalization for gallstone pancreatitis requiring a laparoscopic cholecystectomy. The patient also had laparoscopic liver wedge resection biopsy, was complicated by bile leak. The patie nt was then seen by GI and underwent ERCP with biliary stent placement. ERCP was also notable for a n incidental finding of duodenal ulcer. Liver biopsy result showed hepatic steatosis. The patient also has a history of hypertension, CKD, anemia and gout. The patient did have a gout flareup durin g last hospitalization. Per the patient's daughter, the patient began to develop abdominal pain sin ce his discharge. He had decreased appetite, was unable to tolerate p.o. feeding, and he subsequent ly developed diarrhea. The patient's daughter denies any melena. The patient has no significant ab dominal pain at this time, currently is not reporting any significant nausea. In the ED, the patien t had an abdominopelvic CT that showed an abscess on the lateral gallbladder fossa. PAST MEDICAL HISTORY: Hypertension, CKD, anemia, gout, GI bleed with history of blood transfusion a s well as hepatic steatosis and recent gallstone pancreatitis requiring a laparoscopic cholecystecto my. HOME MEDICATIONS: 1. Protonix. 2. Enalapril. 3. Allopurinol. ALLERGIES: NO KNOWN DRUG ALLERGIES. FAMILY HISTORY: Noncontributory. SOCIAL HISTORY: No history of any alcohol, tobacco or drug abuse. REVIEW OF SYSTEMS: A 12-point review of systems negative except. PHYSICAL EXAMINATION: VITAL SIGNS: Temperature is 98.7, pulse 111, respiratory rate is 18, BP is 135/65, saturation 98% o n room air. GENERAL: No acute distress, alert. HEENT: Normocephalic, atraumatic. CHEST: Clear to auscultation. CARDIOVASCULAR: Regular rate, rhythm. ABDOMEN: Mild tenderness to palpation. Nondistended, soft. EXTREMITIES: No clubbing, cyanosis, edema. LABORATORY TESTS: White count 7.3, hemoglobin 11.3, platelets are 684. Chemistry: Sodium is 126, potassium is 3.9, carbon dioxide is 18 and creatinine 1.35, calcium 7.8, lipase is 443. INR is 1.1. DIAGNOSTICS: Chest x-ray shows atelectasis, atherosclerosis. Abdominopelvic CT shows abscess in the lateral gallbladder fossa, new biliary stents without intrahe patic or extrahepatic biliary dilation with atelectasis. ASSESSMENT AND PLAN: 1. Abdominal pain with nausea, vomiting and decreased appetite. Etiology may be secondary to pancr eatitis. His lipase is elevated. Etiology may be secondary to abscess. This is reported on CT. O f note, the patient has no leukocytosis, no fever, which bodes against an abscess and could just be a postoperative fluid collection. Will consult Dr. Tamez of Surgery and Dr. Burgess of GI. Will k eep the patient n.p.o. for the elevated lipase and give IV fluid. 2. Acute kidney injury, likely secondary to dehydration. Will treat with IV fluids. 3. Hyponatremia. This is a chronic issue. Will treat with IV fluids. 4. Thrombocytosis, chronic. The patient was seen by Hematology/Oncology during last hospitalizatio n. It was felt that patient's thrombocytosis is a reactive thrombocytosis. 5. Hepatic steatosis. No acute issues. 6. History of hypertension, stable. 7. History of gastrointestinal bleed. Continue PPI. 8. History of gout. No acute flareups. 9. Prophylaxis: SCDs. Dictated By: CALLIE ROGEL MD BS/ROXANNE Conf#: [id number] DID#: [id number]
[2017-03-26] MEDS: D5-NS + KCL 20 MEQ 1,000 ML IV SCH ×4 (02:05→20:30)
[2017-03-26] MEDS: PANTOPRAZOLE 40 MG INJ IV SCH (05:31)
[2017-03-26] MEDS: PIPER-TAZO 3.375 GM IV (PMX) 100 ML IVPB SCH ×3 (05:31→22:29)
[2017-03-26 05:36] LABS: ADD SCAN DIFF NO
[2017-03-26] MEDS: morphine 2 MG INJ IV PRN ×2 (05:36→20:40)
[2017-03-26 05:43] LABS: BASOPHIL # 0.1 10^3/ul (0.0-0.1); BASOPHILS % 0.8 % (0.0-2.0); EOSINOPHILS # 0.3 10^3/ul (0.0-0.5); EOSINOPHILS % 3.8 % (0.0-7.0); HEMATOCRIT 29.5 % (42.0-52.0); HEMOGLOBIN 9.8 g/dl (14.0-18.0); LYMPHOCYTES # 1.5 10^3/ul (0.8-2.9); LYMPHOCYTES % 17.6 % (15.0-51.0); MEAN CORPUSCULAR HEMOGLOBIN 28.5 pg (29.0-33.0); MEAN CORPUSCULAR HGB CONC 33.2 g/dl (32.0-37.0); MEAN CORPUSCULAR VOLUME 85.8 fl (82.0-101.0); MEAN PLATELET VOLUME 9.6 fl (7.4-10.4); MONOCYTE # 0.7 10^3/ul (0.3-0.9); MONOCYTES % 8.6 % (0.0-11.0); NEUTROPHIL # 5.7 10^3/ul (1.6-7.5); NEUTROPHILS % 68.4 % (39.0-77.0); RED BLOOD COUNT 3.44 10^6/ul (4.70-6.10); RED CELL DISTRIBUTION WIDTH 16.2 % (11.5-14.5); WHITE BLOOD COUNT 8.4 10^3/ul (4.8-10.8)
[2017-03-26 06:15] LABS: CALCIUM 7.4 mg/dl (8.4-10.2); CREATININE 1.15 mg/dl (0.61-1.24); POTASSIUM 3.6 mmol/L (3.5-5.1)
[2017-03-26 06:53] LABS: PLATELET COUNT 651 10^3/UL (140-415)
[2017-03-26 07:04] VITALS: BP 127/78; PULSE 98; RESP 18
[2017-03-26] MEDS ORDERED: MAGNESIUM SULFATE 4 GM/100 ML 100 ML IVPB ONE (07:30)
[2017-03-26] MEDS ORDERED: MAGNESIUM SULFATE 2 GM/50 ML 50 ML IVPB ONE ×2 (11:30→13:30)
--- NOTE | 2017-03-26 13:45 | CONS ---
DATE OF ADMISSION: 03/25/2017 DATE OF CONSULTATION: 03/26/2017 TYPE OF CONSULTATION: Surgery REASON FOR CONSULTATION: Small subhepatic abscess. HISTORY OF PRESENT ILLNESS: The patient is an 86-year-old gentleman who several weeks ago underwent a laparoscopic cholecystectomy with wedge resection liver biopsy. He developed a bile leak. This was treated by drainage and ERCP. The patient's drainage progressively decreased to where it was cl ear and then stopped. His white count was normal and he was asymptomatic and was discharged unevent [facility]. The patient was readmitted yesterday with a history of 3 days of feeling weak and not eating w ell. CT scan showed a 6 cm collection in the lateral gallbladder fossa. He has had no fevers or ch ills. OUTPATIENT MEDICATIONS: 1. Allopurinol. 2. Protonix. ALLERGIES: NONE. REVIEW OF SYSTEMS: HEENT: Unremarkable. PULMONARY: No history of shortness of breath or pneumonia. CARDIAC: The patient has hypertension. ABDOMEN: As in the HPI. EXTREMITIES: History of gout. PHYSICAL EXAMINATION: GENERAL: The patient is an alert, oriented 86-year-old Ukrainian-speaking male in no acute distress. HEENT: Within normal limits. LUNGS: Clear. HEART: Regular rhythm. ABDOMEN: Entirely soft and nontender. EXTREMITIES: Unremarkable. LABORATORY DATA: The patient's hematocrit is 29.5 with a white count of 8400. His platelet count i s elevated at 651,000. He does not have a left shift. BUN, glucose, electrolytes are relatively un remarkable. INR is 1.01. IMAGING: As noted above. IMPRESSION: Small subhepatic fluid collection. PLAN: CT-guided drainage has been ordered. Full resolution is expected. As there are no further s urgical recommendations over this coming , Dr. Lassiter will reassume care of this patient on Wednesday. Dictated By: FRACISCO RITCHIE MD AR/ROXANNE Conf#: [id number] DID#: [id number] CC: KAREN LASSITER MD; MEG PRESSLEY MD;*End*
--- NOTE | 2017-03-26 15:30 | RADRPT ---
PROCEDURE: CT Head without. CLINICAL INDICATION: Suspected stroke, mouth drooping. TECHNIQUE: The study was performed utilizing a multi-slice, multidetector CT scanner. Direct spira l 1 mm axial sections were obtained through the head without the use of intravenous contrast materia l. 1 or more of the following dose reduction techniques were utilized: Automated exposure control, adjustment of the mA and/or kV according to patient's size, iterative reconstruction technique. Co chavez and sagittal reformations were obtained. The images were reviewed on a PACS workstation. RADIATION DOSE: CTDIvol: 44.0 mGyDLP: 630.2 mGy-cm COMPARISON: 03/24/2016 FINDINGS: There is no intracranial hemorrhage, extra-axial fluid collection, mass lesion, midline shift or hyd rocephalus. There is mild prominence of the cerebral sulci and third ventricle. There is moderate to severe prominence of the lateral ventricles in the frontal horns, bodies and occipital horns. Th ere is mild prominence of the temporal horns. There is severe patchy and confluent periventricular and subcortical white matter hypodensity. There is no extension of hypodensity in the cortex. Ther e is moderate arteriosclerotic calcification of the parasellar internal carotid arteries. The pena- white matter differentiation is preserved. The basal cisterns are patent. The midline structures a re intact. There is left-sided aphakia. The orbits, calvarium and extracranial soft tissues are no rmal in appearance. The visualized paranasal sinuses, mastoid air cells and middle ear cavities are normally aerated. IMPRESSION: 1. No acute intracranial abnormality. No intracranial hemorrhage, extra-axial fluid collection, ma ss lesion or hydrocephalous. 2. Mild peripheral and moderate to severe central central cerebral volume loss. 3. Severe patchy and confluent periventricular and subcortical white matter hypodensity, likely rel ated to chronic microangiopathic changes. 4. No CT evidence of infarct at this time. If clinical concern for infarct, MRI is recommended for further evaluation. RPTAT: HGAS .Aba Garza MD, MD Date Time Electronically viewed and signed by .Aba Garza MD, on 03/26/2017 15:30 .S/
[2017-03-26 16:22] VITALS: BP 113/62; PULSE 98; RESP 18
[2017-03-26 16:23] VITALS: PULSE 100
[2017-03-26 16:44] LABS: CALCIUM 7.4 mg/dl (8.4-10.2); CREATININE 1.2 mg/dl (0.61-1.24)
[2017-03-26 19:18] VITALS: BP 140/74; RESP 18
[2017-03-26 20:17] VITALS: PULSE 103
[2017-03-26 20:44] LABS: CALCIUM 7.5 mg/dl (8.4-10.2); CREATININE 1.2 mg/dl (0.61-1.24)
[2017-03-27] VITALS (9 sets, daily range): BP systolic 126–145; BP diastolic 67–74; PULSE 78–95; RESP 17–18
[2017-03-27] MEDS: morphine 2 MG INJ IV PRN (01:18)
[2017-03-27] MEDS: PANTOPRAZOLE 40 MG INJ IV SCH (06:38)
[2017-03-27] MEDS: PIPER-TAZO 3.375 GM IV (PMX) 100 ML IVPB SCH ×3 (06:38→22:24)
[2017-03-27] MEDS: D5-NS + KCL 20 MEQ 1,000 ML IV SCH ×2 (06:38→16:30)
--- NOTE | 2017-03-27 13:17 | PN ---
Date/Time of Note Date/Time of Note DATE: 03/27/17 TIME: 13:06 Assessment/Plan VTE Prophylaxis VTE Prophylaxis Intervention: heparin Lines/Catheters IV [facility]atheter Type (from [facility]): Peripheral IV Urinary Cath still in place: No Assessment/Plan Problems: (1) Subhepatic fluid collection Status: Acute Comment: Discussed with Dr. Washington. Intention was for CT-guided aspiration of this fluid collection which actually may be small. I will get that ordered now (2) Peptic ulcer disease Status: Acute Comment: Please continue antiulcer medications. (3) Hyperuricemia Status: Chronic Comment: Noted (4) Essential hypertension Status: Chronic Comment: Adequate control. (5) CKD (chronic kidney disease) Status: Acute Comment: Noted adjustment of all medications as appropriate. Qualifiers: Chronic kidney disease stage: stage 2 (mild) Qualified Code: N18.2 - CKD ( chronic kidney disease), stage 2 (mild) (6) Status post laparoscopic cholecystectomy Onset Date: ~ 03/05/2017 Status: Acute Comment: Please see consultation note from Dr. Sonu Washington Subjective 24 Hr Interval Summary Free Text/Dictation Pleasant gentleman lying in bed with family present. At this time reports he is not having significant abdominal pain denies fevers or chills or sweats Constitutional: no complaints Respiratory: no complaints Cardiovascular: no complaints Gastrointestinal: no complaints Genitourinary: no complaints Exam/Review of Systems Vital Signs Vitals Vital Signs Date Time Temp Pulse Resp B/P Pulse Ox O2 Delivery O2 Flow Rate FiO2 03/27/17 12:04 82 03/27/17 11:14 97.3 18 130/72 98 03/26/17 16:22 Room Air Intake and Output 03/26/17 03/26/17 03/27/17 15:00 23:00 07:00 Intake Total 900 ml 0 ml Balance 900 ml 0 ml Exam Constitutional: alert, oriented Neck: non-tender, supple Respiratory: clear to auscultation, normal air movement Cardiovascular: nl pulses, regular rate and rhythm Results Result Diagram: 03/26/1741903/26/171999 Results 24 hrs Laboratory Tests Test 03/26/17 16:10 03/26/17 20:00 03/27/17 06:31 Sodium Level 132 L 131 L Potassium Level 4.0 4.0 Chloride Level 108 106 Carbon Dioxide Level 19 L 18 L Anion Gap 9 11 Blood Urea Nitrogen 7 7 Creatinine 1.20 1.20 Glucose Level 102 102 Calcium Level 7.4 L 7.5 L Magnesium Level 2.7 #H Medications Medications Current Medications Ondansetron HCl (Zofran Inj) 4 mg Q6H PRN IV NAUSEA AND/OR VOMITING; Start at 00:30 Morphine Sulfate (morphine) 2 mg Q4H PRN IV SEVERE PAIN LEVEL 7-10 Last administered on 03/27/17 01:18; Admin Dose 2 MG; Start 03/26/17 at 00:30 Pantoprazole 40 mg 40 mg DAILY@06 IV Last administered on 03/27/17 06:38; Admin Dose 40 MG; Start 03/26/17 at 06:00 Piperacillin Sod/ Tazobactam Sod 100 ml @ 200 mls/hr Q8 IVPB Last administered on 03/27/17 06:38; Admin Dose 200 MLS/HR; Start 03/26/17 at 06:00 Potassium Chloride/Dextrose/ Sod Cl (D5-NS + KCl 20 Meq) 1,000 ml @ 100 mls/hr Q10H IV Last administered on 03/27/17 06:38; Admin Dose 100 MLS/HR; Start at 00:30 Hydralazine HCl (Apresoline) 10 mg Q4H PRN IV SBP>170; Start 03/26/17 at 00:30 FRIEDA WOODSON MD Mar 27, 2017 13:16
[2017-03-28] VITALS (13 sets, daily range): BP systolic 125–150; BP diastolic 61–72; PULSE 63–91; RESP 16–18
[2017-03-28] MEDS: D5-NS + KCL 20 MEQ 1,000 ML IV SCH ×3 (00:17→22:42)
[2017-03-28] MEDS: PANTOPRAZOLE 40 MG INJ IV SCH (06:42)
[2017-03-28] MEDS: PIPER-TAZO 3.375 GM IV (PMX) 100 ML IVPB SCH ×3 (06:42→21:51)
--- NOTE | 2017-03-28 11:56 | PN ---
Date/Time of Note Date/Time of Note DATE: 03/28/17 TIME: 11:53 Assessment/Plan VTE Prophylaxis VTE Prophylaxis Intervention: SCD's Lines/Catheters [facility] Peripheral IV Urinary Cath still in place: No Assessment/Plan Problems: (1) Subhepatic fluid collection Status: Acute Comment: CT-guided aspiration was postponed by radiology. There are note is in the orders. I was not contacted. I will allow the patient take p.o. make him n.p.o. after midnight for the procedure tomorrow. (2) Peptic ulcer disease Status: Acute Comment: PPI therapy (3) Hepatic steatosis Status: Chronic Comment: Noted no specific treatment at this time (4) Hyperuricemia Status: Chronic Comment: Noted. Resume allopurinol shortly (5) Essential hypertension Status: Chronic Comment: Adequate control at the present time (6) Postoperative abscess Status: Acute Comment: I am not entirely certain that this fluid collection truly represents abscess. Patient's on antibiotics. Please note that the emergency room team did not culture the gentleman. I will get cultures now Subjective 24 Hr Interval Summary Free Text/Dictation Patient reports that he is feeling a little pain but not much. Reports generally is doing well he would like to eat. Constitutional: no complaints (Denies fevers chills or sweats) Respiratory: no complaints Cardiovascular: no complaints Gastrointestinal: no complaints (Denies pain nausea or vomiting) Exam/Review of Systems Vital Signs Vitals Vital Signs Date Time Temp Pulse Resp B/P Pulse Ox O2 Delivery O2 Flow Rate FiO2 03/28/17 11:28 98.2 83 18 136/71 98 03/26/17 16:22 Room Air Intake and Output 03/27/17 03/27/17 03/28/17 15:00 23:00 07:00 Intake Total 1200 ml 100 ml Output Total 400 ml 450 ml Balance 1200 ml -300 ml -450 ml Exam Constitutional: alert, oriented Respiratory: clear to auscultation, normal air movement Cardiovascular: nl pulses, regular rate and rhythm Gastrointestinal: nl liver, spleen, non-tender, soft Results Result Diagram: 03/26/17 0420 03/26/171999 Medications Medications Current Medications Ondansetron HCl (Zofran Inj) 4 mg Q6H PRN IV NAUSEA AND/OR VOMITING; Start at 00:30 Morphine Sulfate (morphine) 2 mg Q4H PRN IV SEVERE PAIN LEVEL 7-10 Last administered on 03/27/17 01:18; Admin Dose 2 MG; Start 03/26/17 at 00:30 Pantoprazole 40 mg 40 mg DAILY@06 IV Last administered on 03/28/17 06:42; Admin Dose 40 MG; Start 03/26/17 at 06:00 Piperacillin Sod/ Tazobactam Sod 100 ml @ 200 mls/hr Q8 IVPB Last administered on 03/28/17 06:42; Admin Dose 200 MLS/HR; Start 03/26/17 at 06:00 Potassium Chloride/Dextrose/ Sod Cl (D5-NS + KCl 20 Meq) 1,000 ml @ 100 mls/hr Q10H IV Last administered on 03/28/17 11:34; Admin Dose 100 MLS/HR; Start at 00:30 Hydralazine HCl (Apresoline) 10 mg Q4H PRN IV SBP>170; Start 03/26/17 at 00:30 FRIEDA WOODSON MD Mar 28, 2017 11:56
[2017-03-29] VITALS (10 sets, daily range): BP systolic 137–173; BP diastolic 67–79; PULSE 72–105; RESP 16–17
--- NOTE | 2017-03-29 00:49 | PN ---
Date/Time of Note Date/Time of Note DATE: 03/29/17 TIME: 00:00 Assessment/Plan Lines/Catheters IV Catheter Type (from Nrs): Peripheral IV Holland in Place (from Nrs): No Assessment/Plan Assessment/Plan 1. Lateral gallbladder fossa fluid collection extending to region of cystic duct remnant: s/p cholecystectomy with biliary stent placement; no c/o pain, nausea/vomiting; having bowel movements * Awaiting CT guided drainage by radiology then start oral feeding * Continue Zosyn 2. Acute Kidney Injury: likely 2/2 to dehydration * Improved with IV fluids 3. Peptic ulcer disease: Hx of duodenal ulcer * Continue PPI 4. Hypertension: Well controlled * Continue antihypertensives 5. Hypomagnesemia: likely 2/2 reduced intake & vomiting; replaced * Normalized * Start enteral nutrition as soon as no longer symptomatic 6. Hypocalcemia: likely 2/2 reduced intake and decreased mg * Replace * Start enteral nutrition as soon as no longer symptomatic 7. Hyponatremia: Chronic 8. Thrombocytopenia: Chronic 9. Hepatic steatosis: -Encourage exercise and alcohol avoidance -Follow with outpatient MD for monitoring Patient seen and examined with Dr. Jason Tamez Subjective 24 Hr Interval Summary Constitutional: BM (mucoid), No chills, No cough, No diaphoresis, No febrile Feeding: NPO (pending CT guided abcess drainage) Pain Control: well controlled Detailed Summary Eyes: No discharge, No pain ENT: No pain Respiratory: No cough, No pain, No shortness of breath Cardiovascular: No chest pain, No palpitations Gastrointestinal: flatus, passing stool, No blood, No constipation, No pain Genitourinary: No dysuria, No hematuria, No no complaints Musculoskeletal: no complaints Skin: No bruising, No pruritis, No rash Neurologic: No confusion, No dizziness, No headache Endocrine: No polydypsia, No polyuria Lymphatic: No adenopathy Psychological: nl mood/affect Exam/Review of Systems Vital Signs Vitals Vital Signs Date Time Temp Pulse Resp B/P Pulse Ox O2 Delivery O2 Flow Rate FiO2 03/29/17 08:04 72 03/29/17 07:22 98.3 16 137/67 99 03/26/17 16:22 Room Air Intake and Output 03/28/17 03/28/17 03/29/17 15:00 23:00 07:00 Intake Total 400 ml 120 ml Output Total 750 ml Balance 400 ml -630 ml Exam Constitutional: alert, oriented, No distress Psych: no complaints Head: atraumatic, normocephalic Eyes: EOMI, nl conjunctiva, nl lids, nl sclera Respiratory: clear to auscultation, normal air movement Cardiovascular: nl pulses, regular rate and rhythm Gastrointestinal: bowel sounds, distended, non-tender, soft, surgical scars ( healing well), No rebound or guarding Genitourinary - Male: nl penis, nl scrotum Musculoskeletal: nl extremities to inspection Extremities: normal pulses Neurological: nl mental status, nl speech Skin: nl turgor, No rash or lesions Results Result Diagram: 03/26/17 0420 03/26/17 JUANJO REESE NP Mar 29, 2017 00:49
[2017-03-29] MEDS: PIPER-TAZO 3.375 GM IV (PMX) 100 ML IVPB SCH ×3 (06:35→21:06)
[2017-03-29] MEDS: PANTOPRAZOLE 40 MG INJ IV SCH (06:35)
[2017-03-29] MEDS: D5-NS + KCL 20 MEQ 1,000 ML IV SCH (08:30)
--- NOTE | 2017-03-29 10:49 | PN ---
Date/Time of Note Date/Time of Note DATE: 03/29/17 TIME: 10:47 Assessment/Plan VTE Prophylaxis VTE Prophylaxis Intervention: SCD's Lines/Catheters IV Catheter Type (from Nrsg): Peripheral IV Urinary Cath still in place: No Assessment/Plan Assessment/Plan 86 yo M with recent abd pain found 2/2 gallstone pancreatitis. Pt underwent lap ashleigh with liver biopsy 6.2, post operative course c/b bile leak. Pt underwent ERCP 6.8 with biliary stent placement. ERCP also notable for incidental finding of duodenal ulcer for which pt was started on high dose PPI. SHANTE drain from lap ashleigh was pulled 6.14 Pt readmitted 6.23 for abd pain. Imaging with small fluid collection in gallbladder fossa concerning for abscess. Per IR, abscess not amenable to CT guided drainage. PLAN -cont abx-->narrowing of abx, duration of therapy and follow up as per gen surg #MARCOS: stop fluids as tolerating PO. improved #PUD: cont PPIs x 7 additional weeks #HTN; cont home meds #electrolyte derangement: replete PRN discharge pending general surgery plan for fluid collection management Subjective 24 Hr Interval Summary Free Text/Dictation Contacted by IR this AM that abscess too small to drain. Pt without complaint Exam/Review of Systems Vital Signs Vitals Vital Signs Date Time Temp Pulse Resp B/P Pulse Ox O2 Delivery O2 Flow Rate FiO2 03/29/17 08:04 72 03/29/17 07:22 98.3 16 137/67 99 03/26/17 16:22 Room Air Intake and Output 03/28/17 03/28/17 03/29/17 15:00 23:00 07:00 Intake Total 400 ml 120 ml Output Total 750 ml Balance 400 ml -630 ml Exam nad, sitting at side of bed brushing his teeth no mrg lungs clear abd soft no le edema Results Result Diagram: 03/26/17 0420 03/26/171999 Results 24 hrs Laboratory Tests Test 03/28/17 14:10 Lactic Acid Level 2.2 Medications Medications Current Medications Ondansetron HCl (Zofran Inj) 4 mg Q6H PRN IV NAUSEA AND/OR VOMITING; Start at 00:30 Morphine Sulfate (morphine) 2 mg Q4H PRN IV SEVERE PAIN LEVEL 7-10 Last administered on 03/27/17t 01:18; Admin Dose 2 MG; Start 03/26/17 at 00:30 Pantoprazole 40 mg 40 mg DAILY@06 IV Last administered on 03/29/17 06:35; Admin Dose 40 MG; Start 03/26/17 at 06:00 Piperacillin Sod/ Tazobactam Sod 100 ml @ 200 mls/hr Q8 IVPB Last administered on 03/29/17 06:35; Admin Dose 200 MLS/HR; Start 03/26/17 at 06:00 Potassium Chloride/Dextrose/ Sod Cl (D5-NS + KCl 20 Meq) 1,000 ml @ 100 mls/hr Q10H IV Last administered on 03/28/17 22:42; Admin Dose 100 MLS/HR; Start at 00:30 Hydralazine HCl (Apresoline) 10 mg Q4H PRN IV SBP>170; Start 03/26/17 at 00:30 LORI MIRANDA MD Mar 29, 2017 10:49
[2017-03-29 12:51] LABS: CALCIUM 8.3 mg/dl (8.4-10.2); CREATININE 1.1 mg/dl (0.61-1.24); MAGNESIUM 1.2 mg/dl (1.7-2.5)
[2017-03-29] MEDS: ALLOPURINOL 100 MG TAB PO SCH (21:06)
[2017-03-29] MEDS: PANTOPRAZOLE (EC) 40 MG TAB PO SCH (21:06)
[2017-03-30] VITALS (13 sets, daily range): BP systolic 128–170; BP diastolic 67–86; PULSE 66–88; RESP 17–20
[2017-03-30] MEDS: PIPER-TAZO 3.375 GM IV (PMX) 100 ML IVPB SCH ×3 (06:06→22:23)
[2017-03-30 07:47] LABS: CALCIUM 8.5 mg/dl (8.4-10.2); CREATININE 1.01 mg/dl (0.61-1.24); POTASSIUM 4.7 mmol/L (3.5-5.1)
[2017-03-30] MEDS: PANTOPRAZOLE (EC) 40 MG TAB PO SCH ×2 (08:53→20:43)
[2017-03-30] MEDS: ALLOPURINOL 100 MG TAB PO SCH ×2 (08:53→20:43)
[2017-03-30] MEDS: ENALAPRIL 10 MG TAB PO SCH (08:54)
--- NOTE | 2017-03-30 11:01 | PN ---
Date/Time of Note Date/Time of Note DATE: 03/30/17 TIME: 10:58 Assessment/Plan Lines/Catheters IV Catheter Type (from Nrs): Peripheral IV Holland in Place (from Nrs): No Assessment/Plan Assessment/Plan Assessment/Plan 1. Lateral gallbladder fossa fluid collection extending to region of cystic duct remnant: s/p cholecystectomy with biliary stent placement; no c/o pain, nausea/vomiting; having bowel movements that are more formed; tolerating clear liquids * Advance diet * CT guided drainage by radiology unable to be done as there was not enough fluid to be drained. * Continue Zosyn 2. Acute Kidney Injury: likely 2/2 to dehydration * Improved with IV fluids 3. Peptic ulcer disease: Hx of duodenal ulcer * Continue PPI 4. Hypertension: Well controlled * Continue antihypertensives 5. Hypomagnesemia: likely 2/2 reduced intake & vomiting; replaced * Normalized * Start enteral nutrition as soon as no longer symptomatic 6. Hypocalcemia: likely 2/2 reduced intake and decreased mg * Replace * Start enteral nutrition as soon as no longer symptomatic 7. Hyponatremia: Chronic 8. Thrombocytopenia: Chronic 9. Hepatic steatosis: -Encourage exercise and alcohol avoidance -Follow with outpatient MD for monitoring 10. Hyponatremia: resolved Patient seen and examined with Dr. Jason Tamez Subjective 24 Hr Interval Summary Constitutional: flatus (with more formed stools), improved, no complaints, other, No chills, No cough, No febrile, No shortness of breath Feeding: clear Pain Control: well controlled Exam/Review of Systems Vital Signs Vitals Vital Signs Date Time Temp Pulse Resp B/P Pulse Ox O2 Delivery O2 Flow Rate FiO2 03/30/17 08:21 87 03/30/17 08:19 97.7 17 147/75 95 03/26/17 16:22 Room Air Intake and Output 03/29/17 03/29/17 03/30/17 15:00 23:00 07:00 Intake Total 200 ml Balance 200 ml Exam Constitutional: alert, oriented, well developed Psych: no complaints Head: atraumatic, normocephalic Eyes: nl conjunctiva, nl lids, nl sclera ENMT: mucosa pink and moist, nl external ears & nose Neck: non-tender, supple Respiratory: clear to auscultation, normal air movement Cardiovascular: nl pulses, regular rate and rhythm Gastrointestinal: bowel sounds (active x 4 quads), non-tender, soft, No distended, No rebound or guarding, No tender Genitourinary - Male: nl penis, nl scrotum Musculoskeletal: nl extremities to inspection, nl gait and stance Extremities: normal pulses Neurological: nl mental status, nl speech, nl strength Skin: nl turgor Results Result Diagram: 03/26/17 0420 03/30/17 0559 JUANJO FREITAS NP Mar 30, 2017 11:01
[2017-03-30] MEDS ORDERED: ACETAMINOPHEN 325 MG TAB PO PRN (12:30)
--- NOTE | 2017-03-30 15:02 | PN ---
Date/Time of Note Date/Time of Note DATE: 03/30/17 TIME: 15:02 Assessment/Plan VTE Prophylaxis VTE Prophylaxis Intervention: SCD's Lines/Catheters IV Catheter Type (from Nrsg): Peripheral IV Urinary Cath still in place: No Assessment/Plan Assessment/Plan 86 yo M with recent abd pain found 2/2 gallstone pancreatitis. Pt underwent lap ashleigh with liver biopsy 6.2, post operative course c/b bile leak. Pt underwent ERCP 6.8 with biliary stent placement. ERCP also notable for incidental finding of duodenal ulcer for which pt was started on high dose PPI. SHANTE drain from lap ashleigh was pulled 6.14 Pt readmitted 6.23 for abd pain. Imaging with small fluid collection in gallbladder fossa concerning for abscess. Per IR, abscess not amenable to CT guided drainage. Also discussed and reviewed imaging with gen surg today. Minimal fluid present on imaging, no indication for sampling given clinical stability PLAN -cont abx. plan for 7 total days of therapy. Once pt able to tolerate PO can switch abx from IV to PO cipro/flagyll #MARCOS: stopped fluids as tolerating PO. improved #PUD: cont PPIs x 7 additional weeks #HTN; cont home meds #electrolyte derangement: replete PRN discharge in AM if able to tolerate diet Subjective 24 Hr Interval Summary Free Text/Dictation Interested in eating real food Exam/Review of Systems Vital Signs Vitals Vital Signs Date Time Temp Pulse Resp B/P Pulse Ox O2 Delivery O2 Flow Rate FiO2 03/30/17 12:05 66 03/30/17 11:32 97.5 20 138/86 97 03/26/17 16:22 Room Air Intake and Output 03/29/17 03/29/17 03/30/17 15:00 23:00 07:00 Intake Total 200 ml Balance 200 ml Exam nad laying in bed no mrg lungs clear abd soft no le edema Results Result Diagram: 03/26/17 0420 03/30/17 0559 Results 24 hrs Laboratory Tests Test 03/30/17 05:59 Sodium Level 136 Potassium Level 4.7 Chloride Level 111 H Carbon Dioxide Level 17 L Anion Gap 13 Blood Urea Nitrogen 6 L Creatinine 1.01 Glucose Level 63 #L Calcium Level 8.5 Magnesium Level 1.0 L Medications Medications Current Medications Ondansetron HCl (Zofran Inj) 4 mg Q6H PRN IV NAUSEA AND/OR VOMITING; Start at 00:30 Morphine Sulfate 2 mg 2 mg Q4H PRN IV SEVERE PAIN LEVEL 7-10 Last administered on 03/27/17 01:18; Admin Dose 2 MG; Start 03/26/17 at 00:30 Piperacillin Sod/ Tazobactam Sod (Zosyn 3.375gm/ 100 ml (Pmx)) 100 ml @ 200 mls /hr Q8 IVPB Last administered on 03/30/17 14:14; Admin Dose 200 MLS/HR; Start 03/26/17 at 06:00 Allopurinol (Zyloprim) 100 mg BID PO Last administered on 03/30/17 08:53; Admin Dose 100 MG; Start 03/29/17 at 21:00 Enalapril Maleate (Vasotec) 10 mg DAILY PO Last administered on 03/30/17 08:54 ; Admin Dose 10 MG; Start 03/30/17 at 09:00 Pantoprazole (Protonix Tab) 40 mg BID PO Last administered on 03/30/17 08:53; Admin Dose 40 MG; Start 03/29/17 at 21:00 Acetaminophen (Tylenol Tab) 325 mg Q4H PRN PO PAIN AND OR ELEVATED TEMP; Start 03/30/17 at 12:30 LORI MIRANDA MD Mar 30, 2017 15:02
[2017-03-30] MEDS ORDERED: MAGNESIUM SULFATE 2 GM/50 ML 50 ML IVPB ONE (20:00)
[2017-03-31] VITALS (9 sets, daily range): BP systolic 136–144; BP diastolic 67–85; PULSE 85–97; RESP 17–19
[2017-03-31] MEDS: PIPER-TAZO 3.375 GM IV (PMX) 100 ML IVPB SCH ×2 (05:29→14:30)
[2017-03-31] MEDS: PANTOPRAZOLE (EC) 40 MG TAB PO SCH (08:22)
[2017-03-31] MEDS: ALLOPURINOL 100 MG TAB PO SCH (08:22)
[2017-03-31] MEDS: ENALAPRIL 10 MG TAB PO SCH (08:22)
[2017-03-31] MEDS ORDERED: MAGNESIUM OXIDE 400 MG TAB PO ONE (12:00)
[2017-03-31] MEDS ORDERED: CIPR-193 PO ×2 (12:32→12:35)
[2017-03-31] MEDS ORDERED: METR500T PO (12:34)
--- NOTE | 2017-03-31 12:37 | PDOCDIS ---
Discharge Instructions CONDITION Patient Condition: Good HOME CARE INSTRUCTIONS: Special Diet: Regular ACTIVITY: Activity Restrictions: Slowly Increase Activity FOLLOW UP/APPOINTMENTS Follow-up Plan Follow up with the stomach doctor and general surgeon as previously scheduled Your antibiotics have been changed to pills and you have been given prescriptions for 2 more days of antibiotics Seguimiento con el mdico de estmago y cirujano general theo se program anteriormente Nancy antibiticos se davenport cambiado a pldoras y le [place]avenport dado recetas para 2 garza m s de antibiticos LORI MIRANDA MD Mar 31, 2017 12:37
--- NOTE | 2017-03-31 12:38 | DS ---
Date/Time of Note Date/Time of Note DATE: 03/31/17 TIME: 12:38 Discharge Summary Admission/Discharge Info Admit Date/Time Mar 25, 2017 at 19:47 Discharge Date/Time Discharge Diagnosis abdominal pain Patient Condition: Good Consults general surgery, interventional radiology Procedures CT abdomen 6. New surgical changes of cholecystectomy, with a new biliary stent. No evident biliary dilatation. Small fluid collection with enhancing rim is seen at the lateral gallbladder fossa and measures 67 x 18 x 9 mm, suggesting a small abscess. A thin portion of this abscess appears to extend from the lateral margin liver to the region of the cystic duct remnant. The abscess measures about 67 mm in the transverse dimension. Hx of Present Illness The patient is an 86-year-old male who was recently discharged after a prolonged hospitalization for gallstone pancreatitis requiring a laparoscopic cholecystectomy. The patient also had laparoscopic liver wedge resection biopsy , was complicated by bile leak. The patient was then seen by GI and underwent ERCP with biliary stent placement. ERCP was also notable for an incidental finding of duodenal ulcer. Liver biopsy result showed hepatic steatosis. The patient also has a history of hypertension, CKD, anemia and gout. The patient did have a gout flareup during last hospitalization. Per the patient's daughter , the patient began to develop abdominal pain since his discharge. He had decreased appetite, was unable to tolerate p.o. feeding, and he subsequently developed diarrhea. The patient's daughter denies any melena. The patient has no significant abdominal pain at this time, currently is not reporting any significant nausea. In the ED, the patient had an abdominopelvic CT that showed an abscess on the lateral gallbladder fossa. Hospital Course CT reviewed by both IR and general surgery. In their evaluation fluid collection too small to drain. General surgery advised 7 total days of abx for possible infection. Pt able to tolerate PO at time of discharge. Abx converted to PO. Pt to f/u with gen surg and GI as scheduled Home Meds Active Scripts Ciprofloxacin Hcl* (Ciprofloxacin Hcl*) 250 Mg Tablet, 500 MG PO BID for 2 Days , #4 TAB Prov:LORI MIRANDA MD 03/31/17 Metronidazole* (Flagyl*) 500 Mg Tablet, 500 MG PO Q6 for 2 Days, #8 TAB Prov:LORI MIRANDA MD 03/31/17 Pantoprazole* (Pantoprazole*) 40 Mg Tablet.dr, 40 MG PO BID for 60 Days, #120 Prov:LORI MIRANDA MD 03/21/17 Reported Medications Enalapril Maleate* (Enalapril Maleate*) 10 Mg Tablet, 10 MG PO DAILY, TAB 09/29/16 Allopurinol* (Zyloprim*) 100 Mg Tablet, 100 MG PO BID 02/17/13 Discontinued Reported Medications Allopurinol* (Allopurinol*) 100 Mg Tablet, 200 MG PO BID, TAB 09/29/16 Discontinued Scripts Docusate Sodium* (Colace*) 100 Mg Capsule, 100 MG PO TID, #30 CAP Prov:LAVON HUNTER MD 12/23/16 Hydrocodone/Acetaminophen ([place] 10-325 Tablet) 1 Each Tablet, 1 TAB PO Q6H Y for PAIN, #7 TAB Prov:LAVON HUNTER MD 12/23/16 Tramadol HCl (Tramadol HCl) 50 Mg Tablet, 50 MG PO Q6H Y for PAIN, #30 TAB Prov:SUZIE COPELAND 03/26/16 Metoprolol Tartrate* (Lopressor*) 25 Mg Tab, 25 MG PO DAILY for 30 Days, TAB Prov:SUZIE COPELAND 03/26/16 Follow-up Plan f/u with general surgery and GI as previously scheduled cc'ing GI and gen surg on this summary Primary Care Provider Tasha Quesada MD Time spent on discharge: > 30 minutes Pending Labs Laboratory Tests Test 03/31/17 07:10 Magnesium Level 1.4mg/dl (1.7-2.5) LORI MIRANDA MD Mar 31, 2017 12:38
--- NOTE | 2017-03-31 14:36 | PN ---
Date/Time of Note Date/Time of Note DATE: 03/31/17 TIME: 14:29 Assessment/Plan Lines/Catheters IV Catheter Type (from [facility]): Saline Lock [address] in Place (from [facility]): No Assessment/Plan Chief Complaint/Hosp Course Assessment/Plan 1. Lateral gallbladder fossa fluid collection extending to region of cystic duct remnant: s/p cholecystectomy with biliary stent placement; no c/o pain, nausea/vomiting; having bowel movements that are more formed;CT guided drainage by radiology unable to be done as there was not enough fluid to be drained; tolerating diet * Advance diet * Continue abx oral 2. Acute Kidney Injury: likely 2/2 to dehydration; resolved * monitor 3. Peptic ulcer disease: Hx of duodenal ulcer * Continue PPI 4. Hypertension: Well controlled * Continue antihypertensives 5. Hypomagnesemia: likely 2/2 reduced intake & vomiting; * Optimize lytes * optimize nutrition 6. Hypocalcemia: likely 2/2 reduced intake and decreased mg; improved * monitor 7. Hyponatremia: Chronic 8. Thrombocytopenia: Chronic 9. Hepatic steatosis: -Encourage exercise and alcohol avoidance -Follow with outpatient MD for monitoring 10. Hyponatremia: resolved Patient seen and examined with Dr. Jason Tamez Problems: Subjective 24 Hr Interval Summary Constitutional: ambulates, improved, no complaints, other (no diarrhea; passing flatus), No chills, No cough, No febrile, No requiring O2, No shortness of breath Feeding: advancing diet Pain Control: well controlled (no abdominal pain/discomfort) Exam/Review of Systems Vital Signs Vitals Vital Signs Date Time Temp Pulse Resp B/P Pulse Ox O2 Delivery O2 Flow Rate FiO2 03/31/17 12:07 86 03/31/17 11:21 98.5 17 141/85 97 Intake and Output 03/30/17 03/30/17 03/31/17 15:00 23:00 07:00 Intake Total 100 ml 1050 ml 450 ml Output Total 800 ml 300 ml Balance 100 ml 250 ml 150 ml Exam Free Text/Dictation Constitutional: alert, oriented, well developed Psych: no complaints Head: atraumatic, normocephalic Eyes: nl conjunctiva, nl lids, nl sclera ENMT: mucosa pink and moist, nl external ears & nose Neck: non-tender, supple Respiratory: clear to auscultation, normal air movement Cardiovascular: nl pulses, regular rate and rhythm Gastrointestinal: bowel sounds (active x 4 quads), non-tender, soft, No distended, No rebound or guarding, No tender Genitourinary - Male: nl penis, nl scrotum Musculoskeletal: nl extremities to inspection, nl gait and stance Extremities: normal pulses Neurological: nl mental status, nl speech, nl strength Skin: nl turgor Results Result Diagram: 03/30/17 0559 JUANJO FREITAS NP Mar 31, 2017 14:36
--- NOTE | 2017-04-03 17:51 | RADRPT ---
Vent Rate: 94 bpm RR Interval: 0 msec [place] Interval: 174 msec QRS Duration: 82 msec QT Interval: 410 msec QTC Interval: 512 msec P-R-T [place]: 38 - 7 - 116 degrees Normal sinus rhythm Nonspecific T wave abnormality Prolonged QT Abnormal ECG Electronically Signed By: Asaf Miller [id number]
== END 2017-03-31 18:36 | disposition home or self-care (01) | DRG 863 ==
LOC: E/R 15:50 → PP2 19:47 → TEL 03-26 15:55
PROVIDERS: ADMIT Internal Medicine; ATTEND Internal Medicine
DX: K68.11 Postprocedural retroperitoneal abscess (principal); N17.9 Acute kidney failure, unspecified; K76.0 Fatty (change of) liver, not elsewhere classified; D69.6 Thrombocytopenia, unspecified; E87.1 Hypo-osmolality and hyponatremia; K26.9 Duodenal ulcer, unspecified as acute or chronic, without hemorrhage or perforation; Y83.8 Other surgical procedures as the cause of abnormal reaction of the patient, or of later complication, without mention of misadventure at the time of the procedure; E86.0 Dehydration; I12.9 Hypertensive chronic kidney disease with stage 1 through stage 4 chronic kidney disease, or unspecified chronic kidney disease; N18.9 Chronic kidney disease, unspecified; M10.9 Gout, unspecified; Z90.49 Acquired absence of other specified parts of digestive tract; E83.42 Hypomagnesemia; E83.51 Hypocalcemia
CPT/HCPCS: 70450; 71010; 74177; 80048; 80053; 81003; 83036; 83605; 83690; 83735; 84100; 84484; 85025; 85610; 85730; 87040; 93005; 96374; 96375; C9113; J2270; J2543; J3475; J3480; J7030; Q9967

== ENCOUNTER 2017-07-21 14:20 | Day surgery (SDC) | payer OTHER ==
[~2017-07-21] VITALS: Ht 157.5 cm; Wt 64.0 kg
[2017-07-21] VITALS (13 sets, daily range): BP systolic 142–181; BP diastolic 72–92; PULSE 78–112; RESP 18–28; Ht 157.5 cm; Wt 64.0 kg
[~2017-07-21 14:20] MED LIST changes: -ALLO100T PO; +CIPR-193 PO; -DOCU-144 PO; -HYDR-902 PO; -METO-448 PO; +METR500T PO; +PROPOFOL 200 MG INJ ONE; -TRAM50TA2 PO
[2017-07-21] MEDS ORDERED: NIT4 SL (15:06)
[2017-07-21] MEDS ORDERED: MELO-216 PO (15:06)
[2017-07-21] MEDS ORDERED: FER325 PO (15:06)
[2017-07-21 15:30] LABS: BASOPHILS % 0.3 % (0.0-2.0); EOSINOPHILS % 0.4 % (0.0-7.0); HEMATOCRIT 34.3 % (42.0-52.0); HEMOGLOBIN 11.6 g/dl (14.0-18.0); LYMPHOCYTES # 2.3 10^3/ul (0.8-2.9); LYMPHOCYTES % 23.7 % (15.0-51.0); MEAN CORPUSCULAR HEMOGLOBIN 31.3 pg (29.0-33.0); MEAN CORPUSCULAR HGB CONC 33.8 g/dl (32.0-37.0); MEAN CORPUSCULAR VOLUME 92.5 fl (82.0-101.0); MEAN PLATELET VOLUME 9.3 fl (7.4-10.4); MONOCYTE # 0.6 10^3/ul (0.3-0.9); MONOCYTES % 5.9 % (0.0-11.0); NEUTROPHIL # 6.8 10^3/ul (1.6-7.5); NEUTROPHILS % 68.9 % (39.0-77.0); PLATELET COUNT 321 10^3/UL (140-415); RED BLOOD COUNT 3.71 10^6/ul (4.70-6.10); RED CELL DISTRIBUTION WIDTH 13.3 % (11.5-14.5); WHITE BLOOD COUNT 9.8 10^3/ul (4.8-10.8)
[2017-07-21 15:59] LABS: ALBUMIN 3.6 g/dl (3.3-4.9); ALBUMIN/GLOBULIN RATIO 1.02; BILIRUBIN,INDIRECT 0.9 mg/dl (0-1.1); BILIRUBIN,TOTAL 0.9 mg/dl (0.2-1.3); CALCIUM 9.4 mg/dl (8.4-10.2); CREATININE 1.3 mg/dl (0.61-1.24); POTASSIUM 4.4 mmol/L (3.5-5.1); TOTAL PROTEIN 7.1 g/dl (6.1-8.1)
[2017-07-21] MEDS ORDERED: IOHEXOL 300MG/ML 30 ML BTL ONE (16:34)
[2017-07-21] MEDS ORDERED: SUCCINYLCHOLINE CHLORIDE 100 MG/5 ML SYG IV ONE (17:18)
[2017-07-21] MEDS ORDERED: FENTAnyl 50 MCG/ML VIAL ONE (17:18)
[2017-07-21] MEDS ORDERED: ETOMIDATE 20 MG INJ ONE (17:18)
[2017-07-21] MEDS ORDERED: LIDOCAINE 1% (MDV) 20 ML INJ ONE (17:19)
--- NOTE | 2017-07-21 17:28 | HPN ---
Date/Time of Note Date/Time of Note DATE: 07/21/17 TIME: 17:28 Interval H&P Admission Note Pt. seen H&P reviewed: No system changes CALVIN THAKUR MD Jul 21, 2017 17:28
[2017-07-21] MEDS ORDERED: ONDANSETRON 4 MG INJ ONE (17:34)
[2017-07-21] MEDS ORDERED: DEXAMETHASONE 4 MG/ML 1 ML INJ ONE (17:34)
[2017-07-21] MEDS ORDERED: CEFAZOLIN 1 GM INJ ONE ×2 (17:38)
[2017-07-21] MEDS ORDERED: PHENYLephrine (100 MCG/ML) 5ML SYG ONE (17:40)
--- NOTE | 2017-07-21 17:57 | OPPN ---
Date/Time of Note Date/Time of Note DATE: 07/21/17 TIME: 17:53 Proc Note GI Procedure Date 07/21/17 Indication: other (Stent removal) Pre-procedure Diagnosis Stent removal/history of bile leak Post-procedure Diagnosis Impression: Post uneventful stent removal Normal cholangiogram Negative biliary tree sweeping Plan: Discharge home when fully awake Follow-up as previously scheduled . Procedure Performed: ERCP (With stent removal plus balloon sweeping of the biliary tree) Surgeon CALVIN THAKUR MD See signature line Photo Lab Specialist none Anesthesia Type: general Anesthesiologist: CHRISTINE BACK DO Tourniquet Time none EBL none Transfusion required none Biopsy 1: None Grafts/Implants none Tubes/Drains none Complication(s) none Disposition: PACU, home Procedure Description After informed consent, with the patient/relatives understanding the procedure, its indications, potential risks and complications, including but not limited to : allergic reaction, bleeding, perforation or infection, and after all pertinent questions were answered to the patients satisfaction, the patient/ relatives signed witnessed informed consent. Following this, premedication was administered slowly IV push under careful cardiovascular and respiratory monitoring with pulse oximetry, automatic blood pressure, and site monitor. Once the sedative effect was achieved the patient was place in the prone position in the radiology special procedures suite; the side viewing panendoscope was introduced and advanced under visual control. Careful examination of the upper gastrointestinal tract, both on insertion as well as withdrawal of the instrument disclosed the following findings: Esophagus: The mucosa of the entire appears within normal limits. There is no evidence of esophagitis, varices, neoplasm or stricture. No Hiatal Hernia identified. Stomach: Upon entrance to the stomach air was insufflated, the gastric warren distended normally, the mucosa of the fundus, body and antrum of the stomach was carefully examined both head-on and on retroflexion, and shows no abnormalities. There is no evidence of gastritis, ulcers, or neoplasm. Pylorus: The pylorus appears patent and within normal limits, with no evidence of gastric outlet obstruction. Duodenum: The duodenal mucosa was carefully examined in the duodenal bulb as well as the second portion of the duodenum and appears unremarkable with no evidence of duodenitis, ulcer or neoplasm. Ampulla of Vater: The ampulla of Vater was identified a biliary plastic stent is exiting the ampulla. It was secured with a polypectomy snare and retrieved without difficulty. Cannulation: At this point cannulation was accomplished with the following fluoroscopic findings: Pancreatogram: Not obtained Cholangiogram: Essentially normal cholangiogram. Balloon sweeping was performed no additional abnormalities are noted. The instrument was then withdrawn the patient tolerated the procedure well and was transfer out of the endoscopy suite awake, and in good condition to continue to recover under observation. Copies To: CC: CALVIN THAKUR MD, MORDO MD Jul 21, 2017 17:57
[2017-07-21] MEDS ORDERED: LABETALOL HCL 20MG INJ ONE (18:26)
[2017-07-21] MEDS ORDERED: LABETALOL HCL 20MG INJ IV ONE (18:30)
[2017-07-21 20:10] LABS: INR 0.91; PROTIME 12.3 Sec (12.2-14.2)
[2017-07-21 20:11] LABS: PARTIAL THROMBOPLASTIN TIME 27.6 Sec (25.0-35.0)
--- NOTE | 2017-07-21 22:54 | RADRPT ---
PROCEDURE: Intraoperative imaging for ERCP with fluoroscopy. CLINICAL INDICATION: Right upper quadrant pain. Intraoperative. TECHNIQUE: 7 images of the right upper quadrant of the abdomen were obtained in the operating room with an image intensifier. No radiologist was in attendance. 64 seconds of fluoroscopy time was u sed. COMPARISON: ERCP dated 03/10/2017. FINDINGS: The initial image demonstrates surgical clips from cholecystectomy. A stent is present in the common bile duct. Subsequent images demonstrate removal of the stent and contrast injection into the commo n bile duct. The pancreatic duct was not injected. IMPRESSION: 1. ERCP as described above. RPTAT: QQ .Elliott Cao MD, MD Date Time Electronically viewed and signed by .Elliott Cao MD, on 07/21/2017 22:54 .R/
--- NOTE | 2017-07-22 18:31 | RADRPT ---
Vent Rate: 94 bpm RR Interval: 0 msec ID Interval: 188 msec QRS Duration: 86 msec QT Interval: 332 msec QTC Interval: 415 msec P-R-T [place]: 49 - 3 - 65 degrees Normal sinus rhythm Normal ECG Electronically Signed By: Curtis Stinson [id number]
== END 2017-07-21 19:21 | disposition home or self-care (01) ==
LOC: GIL 14:20
PROVIDERS: ATTEND Internal Medicine Gastroenterology
DX: Z46.89 Encounter for fitting and adjustment of other specified devices (principal); Z87.19 Personal history of other diseases of the digestive system; I10 Essential (primary) hypertension; M10.9 Gout, unspecified; K26.9 Duodenal ulcer, unspecified as acute or chronic, without hemorrhage or perforation
CPT/HCPCS: 74330; 80053; 85025; 85610; 85730; 93005; J0690; J1100; J2370; J2405; J3010; Q9967

== ENCOUNTER 2017-07-23 07:24 | Inpatient (IN) | payer OTHER ==
[~2017-07-23] VITALS: Ht 165.1 cm; Wt 65.0 kg
[~2017-07-23 07:24] MED LIST changes: -CIPR-193 PO; +FER325 PO; +MELO-216 PO; -METR500T PO; +NIT4 SL; -PROPOFOL 200 MG INJ ONE
[2017-07-23] MEDS ORDERED: CEFEPIME 2GM/50 ML (PMX) 50 ML IVPB STA (07:28)
[2017-07-23] MEDS ORDERED: SOD CHLORIDE 0.9% 1,000 ML IV STA ×2 (07:28)
[2017-07-23] MEDS ORDERED: ACETAMINOPHEN 650 MG SUPP PR STA (07:28)
[2017-07-23] MEDS ORDERED: VANCOMYCIN 1 GM (PMX) 250 ML IVPB ONE (07:30)
[2017-07-23 08:29] LABS: ABNORMAL IP MESSAGE 1; BASOPHILS % 0.1 % (0.0-2.0); EOSINOPHILS % 0.1 % (0.0-7.0); HEMATOCRIT 34.6 % (42.0-52.0); HEMOGLOBIN 11.5 g/dl (14.0-18.0); LYMPHOCYTES # 0.5 10^3/ul (0.8-2.9); LYMPHOCYTES % 4.5 % (15.0-51.0); MEAN CORPUSCULAR HEMOGLOBIN 31.3 pg (29.0-33.0); MEAN CORPUSCULAR HGB CONC 33.2 g/dl (32.0-37.0); MEAN PLATELET VOLUME 9.2 fl (7.4-10.4); MONOCYTE # 0.2 10^3/ul (0.3-0.9); MONOCYTES % 1.3 % (0.0-11.0); NEUTROPHIL # 10.5 10^3/ul (1.6-7.5); NEUTROPHILS % 93.2 % (39.0-77.0); PLATELET COUNT 277 10^3/UL (140-415); POSITIVE DIFF @See below; RED BLOOD COUNT 3.68 10^6/ul (4.70-6.10); RED CELL DISTRIBUTION WIDTH 13.4 % (11.5-14.5); WHITE BLOOD COUNT 11.2 10^3/ul (4.8-10.8)
[2017-07-23 08:48] LABS: INR 1.01; PROTIME 13.3 Sec (12.2-14.2)
[2017-07-23 08:49] LABS: PARTIAL THROMBOPLASTIN TIME 26.3 Sec (25.0-35.0)
--- NOTE | 2017-07-23 08:49 | RADRPT ---
PROCEDURE: CT Abdomen and Pelvis without contrast. CLINICAL INDICATION: fever, recent abdominal procedure TECHNIQUE: Routine abdominopelvic CT was performed without intravenous contrast and reformatted in the axial, coronal, sagittal planes. Radiation dose: CTDIvol (mGy) = 13.1; total DLP(mGy-cm) = 840 One or more of the following radiation dose techniques were used: -Automated exposure control. -Adjust of the mA and/or kV according to patient size. -Use of iterative reconstruction technique. COMPARISON: CT 03/25/2017. FINDINGS: Interval removal of common bile duct stent. The gallbladder is surgically absent. A dilated cystic d uct remnant is noted. Unenhanced pancreas, adrenal glands, and spleen demonstrate no gross abnormality. Atrophic kidneys with multifocal cortical scarring are symmetric in appearance without hydronephrosi s or obstructive uropathy. No abnormal bowel wall thickening or dilatation. Appendix is normal. Small fat-containing umbilical hernia. Diffuse aortic and visceral calcifications. No free fluid or fluid collection. No lymphadenopathy. Unchanged multilevel vertebral body compression fractures at the thoracolumbar junction. IMPRESSION: Interval removal of common bile duct stent. Remainder examination is unchanged. No identifiable cause of patient's fever on this limited noncont rast CT. No fluid collection or abscess is demonstrated. RPTAT: EE .Eladio Chapman MD, Date Time Electronically viewed and signed by .Eladio Chapman MD, MD on 07/23/2017 08:55 .C/
[2017-07-23 08:57] LABS: ALANINE AMINOTRANSFERASE 56 IU/L (13-69); ALBUMIN 3.5 g/dl (3.3-4.9); ALBUMIN/GLOBULIN RATIO 1.09; ALKALINE PHOSPHATASE 101 IU/L (42-121); ANION GAP 18 (8-16); ASPARTATE AMINO TRANSFERASE 51 IU/L (15-46); BILIRUBIN,INDIRECT 1.3 mg/dl (0-1.1); BILIRUBIN,TOTAL 1.3 mg/dl (0.2-1.3); BLOOD UREA NITROGEN 37 mg/dl (7-20); CALCIUM 8.9 mg/dl (8.4-10.2); CARBON DIOXIDE 17 mmol/L (21-31); CHLORIDE 101 mmol/L (97-110); CREATININE 1.24 mg/dl (0.61-1.24); GLUCOSE 90 mg/dl (70-220); POTASSIUM 4.8 mmol/L (3.5-5.1); SODIUM 131 mmol/L (135-144); TOTAL PROTEIN 6.7 g/dl (6.1-8.1)
[2017-07-23 08:59] LABS: ADD UMIC YES; UR ASCORBIC ACID NEGATIVE (NEGATIVE); UR BILIRUBIN (Dip) NEGATIVE (NEGATIVE); UR BLOOD (Dip) 1+ mg/dL (NEGATIVE); UR CLARITY CLEAR (CLEAR); UR COLOR YELLOW (YELLOW); UR GLUCOSE (Dip) NEGATIVE (NEGATIVE); UR KETONES (Dip) NEGATIVE (NEGATIVE); UR LEUKOCYTE ESTERASE (Dip) NEGATIVE Leu/ul (NEGATIVE); UR NITRITE (Dip) NEGATIVE (NEGATIVE); UR RBC 2 /HPF (0-5); UR SPECIFIC GRAVITY (Dip) 1.013 (1.003-1.030); UR TOTAL PROTEIN (Dip) 2+ mg/dl (NEGATIVE); UR UROBILINOGEN (Dip) NEGATIVE (NEGATIVE)
[2017-07-23 09:07] LABS: TROPONIN-I < 0.012 ng/ml (0.00-0.12)
--- NOTE | 2017-07-23 09:09 | RADRPT ---
PROCEDURE: XR Chest 1 View. CLINICAL INDICATION: Shortness of breath. TECHNIQUE: AP view of the chest was obtained. COMPARISON: March 25, 2017 FINDINGS: The heart size is within normal limits. Calcified atherosclerosis is noted in the aorta. The lungs are hypoinflated. Atelectasis is noted at the lung bases. Blunting left costophrenic angle is identi fied. Calcified granuloma is seen in the right upper lobe. Osseous structures are intact. IMPRESSION: Calcified atherosclerosis in the aorta. Hypoinflated lungs with atelectasis at the lung bases. Blunting of the left costophrenic angle that may reflect small pleural effusion. Calcified granuloma in the right upper lobe. RPTAT: AA .Ollie Temple MD, Date Time Electronically viewed and signed by .Ollie Temple MD, MD on 07/23/2017 09:09 .P/
[2017-07-23] MEDS ORDERED: ONDANSETRON 4 MG INJ IV PRN (09:30)
[2017-07-23] MEDS ORDERED: ACETAMINOPHEN 325 MG TAB PO PRN ×2 (09:30→14:00)
[2017-07-23 11:31] VITALS: TEMP 98.7
--- NOTE | 2017-07-23 12:40 | ERD ---
ER Documentation Chief Complaint Chief Complaint FEVER AND ALOC TODAY. HOT TO TOUCH. S/P FOR GB STENT REMOVAL FEW DAYS AGO HPI Patient is a 87-year-old male with hypertension who presents with fever. Please note the history and physical exam is limited secondary to the patient's confusion at this time. The patient was brought in by ambulance. He has fevers. He had a gallstone stent removed recently. He denies abdominal pain. Upon review of old medical records this is the patient's ninth visit to the ER since 2012. It is difficult to obtain history otherwise. ROS All systems reviewed and are negative except as per history of present illness. Medications Home Meds Active Scripts Pantoprazole* (Pantoprazole*) 40 Mg Tablet.dr, 40 MG PO BID for 60 Days, #120 Prov:LORI DE LA CRUZ MD 03/21/17 Reported Medications Nitroglycerin* (Nitrostat*) 0.4 Mg Tab.subl, 0.4 MG SL Q5MIN Y for CHEST PAIN, BOTTLE 07/21/17 Ferrous Sulfate* (Ferrous Sulfate*) 325 Mg Tabec, 325 MG PO DAILY, TAB 07/21/17 Meloxicam* (Meloxicam*) 7.5 Mg Tablet, 7.5 MG PO DAILY, #30 TAB 07/21/17 Enalapril Maleate* (Enalapril Maleate*) 10 Mg Tablet, 10 MG PO DAILY, TAB 09/29/16 Allopurinol* (Zyloprim*) 100 Mg Tablet, 100 MG PO BID 02/17/13 Discontinued Scripts Ciprofloxacin Hcl* (Ciprofloxacin Hcl*) 250 Mg Tablet, 500 MG PO BID for 2 Days , #4 TAB Prov:LORI DE LA CRUZ MD 03/31/17 Metronidazole* (Flagyl*) 500 Mg Tablet, 500 MG PO Q6 for 2 Days, #8 TAB Prov:LORI DE LA CRUZ MD 03/31/17 Allergies Allergies: Coded Allergies: No Known Allergy (Unverified , 07/23/17) PMhx/Soc History of Surgery: Yes (CHOLECYSTECTOMY, CATARACT OS) Anesthesia Reaction: No Hx Neurological Disorder: No Hx Respiratory Disorders: Yes (COPD) Hx Cardiac Disorders: Yes (HTN) Hx Psychiatric Problems: No Hx Miscellaneous Medical Probl: Yes (gout ) Hx Alcohol Use: No Hx Substance Use: No Hx Tobacco Use: No Smoking Status: Never smoker FmHx Unable to obtain Physical Exam Vitals Vital Signs Date Time Temp Pulse Resp B/P Pulse Ox O2 Delivery O2 Flow Rate FiO2 07/23/17 11:31 98.7 113 18 93/62 99 Nasal Cannula 2.0 07/23/17 08:55 118 18 137/68 98 Nasal Cannula 2.0 07/23/17 07:53 Nasal Cannula 2 07/23/17 07:30 101.9 134 22 155/86 93 Physical Exam Const: Confused, Reiger's Head: Atraumatic Eyes: Normal Conjunctiva ENT: Normal External Ears, Nose and Mouth. Neck: Full range of motion..~ No meningismus. Resp: Clear to auscultation bilaterally Cardio: Regular rate and rhythm, no murmurs Abd: Soft, non tender, non distended. Normal bowel sounds Skin: No petechiae or rashes Back: No midline or flank tenderness Ext: No cyanosis, or edema Neur: Awake but confused, patient has diffuse rigors Result Diagram: 07/23/17 0755 07/23/17 0755 Results 24 hrs Laboratory Tests Test 07/23/17 07:55 07/23/17 08:10 07/23/17 09:22 07/23/17 11:20 White Blood Count 11.210^3/ul Red Blood Count 3.6810^6/ul Hemoglobin 11.5g/dl Hematocrit 34.6% Mean Corpuscular Volume 94.0fl Mean Corpuscular Hemoglobin 31.3pg Mean Corpuscular Hemoglobin Concent 33.2g/dl Red Cell Distribution Width 13.4% Platelet Count 83141^3/UL Mean Platelet Volume 9.2fl Neutrophils % 93.2% Lymphocytes % 4.5% Monocytes % 1.3% Eosinophils % 0.1% Basophils % 0.1% Nucleated Red Blood Cells % 0.0/100WBC Neutrophils # 10.510^3/ul Lymphocytes # 0.510^3/ul Monocytes # 0.210^3/ul Eosinophils # 0.010^3/ul Basophils # 0.010^3/ul Nucleated Red Blood Cells # 0.010^3/ul Prothrombin Time 13.3Sec Prothrombin Time Ratio 1.0 INR International Normalized Ratio 1.01 Activated Partial Thromboplast Time 26.3Sec Sodium Level 131mmol/L Potassium Level 4.8mmol/L Chloride Level 101mmol/L Carbon Dioxide Level 17mmol/L Anion Gap 18 Blood Urea Nitrogen 37mg/dl Creatinine 1.24mg/dl Glucose Level 90mg/dl Lactic Acid Level 1.7mmol/L 1.0mmol/L 1.1mmol/L Calcium Level 8.9mg/dl Total Bilirubin 1.3mg/dl Direct Bilirubin 0.00mg/dl Indirect Bilirubin 1.3mg/dl Aspartate Amino Transf (AST/SGOT) 51IU/L Alanine Aminotransferase (ALT/SGPT) 56IU/L Alkaline Phosphatase 101IU/L Troponin I < 0.012ng/ml Total Protein 6.7g/dl Albumin 3.5g/dl Globulin 3.20g/dl Albumin/Globulin Ratio 1.09 Lipase 210U/L Urine Color YELLOW Urine Clarity CLEAR Urine pH 5.0 Urine Specific [place] 1.013 Urine Ketones NEGATIVEmg/dL Urine Nitrite NEGATIVEmg/dL Urine Bilirubin NEGATIVEmg/dL Urine Urobilinogen NEGATIVEmg/dL Urine Leukocyte Esterase NEGATIVELeu/ul Urine Microscopic RBC 2/HPF Urine Microscopic WBC 0/HPF Urine Hemoglobin 1+mg/dL Urine Glucose NEGATIVEmg/dL Urine Total Protein 2+mg/dl Current Medications Medications (Trade) Dose Ordered Sig/Karthikeyan Route PRN Reason Start Time Stop Time Status Last Admin Dose Admin Acetaminophen 650 mg 650 mg ONCE STAT [place] 07/23/17 07:28 07/23/17 07:31 DC 07/23/17 08:06 Cefepime HCl 50 ml @ 100 mls/hr ONCE STAT IVPB 07/23/17 07:28 07/23/17 07:57 DC 07/23/17 08:08 Vancomycin HCl 250 ml @ 125 mls/hr ONCE ONCE IVPB 07/23/17 07:30 07/23/17 09:29 DC 07/23/17 08:45 Sodium Chloride 1,000 ml @ 1,000 mls/hr Q1H STAT IV 07/23/17 07:28 07/23/17 08:27 DC 07/23/17 08:07 Sodium Chloride (NS) 1,000 ml @ 1,000 mls/hr Q1H STAT IV 07/23/17 07:28 07/23/17 08:27 DC 07/23/17 08:46 Ondansetron HCl (Zofran Inj) 4 mg BRIDGE ORDER PRN IV NAUSEA AND/OR VOMITING 07/23/17 09:30 07/24/17 09:29 Acetaminophen (Tylenol Tab) 650 mg ER BRIDGE PRN PO MILD PAIN/FEVER 07/23/17 09:30 07/24/17 09:29 Procedures/MDM EKG read by me: Rate/Rhythm: Tachycardia Intervals: Normal Impression: Sinus tachycardia without ischemia CT abdomen pelvis shows no sign of intra-abdominal abscess or bowel obstruction per radiology. Chest x-ray shows no pneumonia per radiology. Admit MDM: Patient's infectious symptoms have not stabilized and the patient is at risk of rapid decompensation. The patient will be admitted for careful hydration, antibiotic therapy, and infectious source control. Severe Sepsis criteria: Infectious source: Biliary infection End organ damage indicated by: No end organ dysfunction at this time Sepsis Management: Time of recognition of sepsis: Upon arrival Within 3 hours of recognition: Blood cultures x 2 before broad-spectrum antibiotics: Yes 30 ml/kg NS bolus Completed Initial lactate 1.7 Repeat lactate 1.0 Time of recognition of septic shock: No septic shock Septic Shock Assessment: Any lactic acid > 4.0 No Persistent hypotension (SBP < 90 or 40 mmHg drop, MAP < 65) despite 30 mL/kg IV fluid bolus No Volume Re-assessment for Septic Shock (post 30 ml/kg bolus): Septic shock at this time Persistent Hypotension Treatment: Comfort care No Central line Not Required Vasopressor started Not required I considered further perfusion assessment with CVP measurement, SCVO2, bedside ultrasound volume assessment, passive leg raise, trial of further fluid bolus. And proceeded with 30 ml/kg fluid bolus of NSS, broad spectrum antibiotics, and admission. Accepting Care Team Current data and ongoing care discussed. Admitting Physician: Dr. De La Cruz from the panel team Manager Underwriting(s): None Outstanding Data: Culture results Critical Care: Critical care time 35 minutes excluding all billable procedures Emergent fluid management while maintaining close respiratory support. Provision of immediate and broad-spectrum antibiotic therapy. Simultaneous assessment for possible sources in order to direct targeted therapy. Consideration for invasive and chemical support to prevent cardiopulmonary collapse. Observation Note: Time: 4 hours Family Hx: Unable to obtain Evaluation: Multiple exams showed improving symptoms and no evidence of clinical decompensation. Departure Diagnosis: Primary Impression: Altered level of consciousness Additional Impressions: Biliary infection Sepsis Sepsis type: sepsis due to unspecified organism Qualified Code: A41.9 - Sepsis, due to unspecified organism Condition: LAVON Covarrubias MD Jul 23, 2017 12:40
[2017-07-23] MEDS ORDERED: NACL 0.9% 3 ML SYG IV SCH ×2 (14:00)
[2017-07-23] MEDS ORDERED: HYDROCODONE/APAP (5/325) TAB PO PRN (14:00)
--- NOTE | 2017-07-23 14:57 | HP ---
Date/Time of Note Date/Time of Note DATE: 07/23/17 TIME: 14:56 Assessment/Plan VTE Prophylaxis VTE Prophylaxis Intervention: SCD's Assessment/Plan Assessment/Plan 87 yo M with CKD, NAFLD, semi recent h/o gallstone pancreatitis with biliary stent placement with stent removal 2 days ago here with sepsis (fever, leukocytosis, tachycardia) of unclear source. Given recent biliary intervention , not unreasonable to empirically provide antimicrobial coverage that includes biliary silvio while cultures are in process Of note, no evidence of pancreatitis given nl lipase and imaging results. PLAN -empiric zosyn (better anaerobic coverage than cefepime). No compelling indication for vanc or double gram negative coverage at this time as no h/o colonization with MRSA or MRDO. -abs US to check for retained biliary stone -CMP in AM -cultures in process -cont home meds HPI/ROS Admit Date/Time Admit Date/Time Jul 23, 2017 at 09:22 Hx of Present Illness CC fever, mylagias, sore throat x 1 day HPI 87 yo M with pmhx NAFLD, CKD, anemia gout who presents with 1 day of fever, myalgias, and sore throat. Pt here for outpatient biliary stent removal 2 days ago. Per GI, procedure was free of complications and cholangiogram at the end of the procedure did not indicate any bile leak Pt denies any coughing, SOB, nausea, vomiting, or abd pain Pt had prolonged hospitalization this past summer for gallstone pancreatitis requiring lap ashleigh, c/b bile leak. Pt had biliary stent placement, incidentally found to have duodenal ulcer and NAFLD. Pt then readmitted a few weeks later for intraabd abscess for which pt was treated conservatively with abx. PMH/Family/Social Past Medical History as per HPI Past Surgical History as per HPI Social History lives with family in the community Smoking Status: Never smoker Exam/Review of Systems Vital Signs Vitals Vital Signs Date Time Temp Pulse Resp B/P Pulse Ox O2 Delivery O2 Flow Rate FiO2 07/23/17 14:35 94 20 124/66 98 Nasal Cannula 2.0 07/23/17 11:31 98.7 Exam Exam ill, plethhoric EOMI MMM no posterior pharyngeal erythema neck supple no mrg lungs clear abd soft no rashes no edema labs noted, WBCs 11s. Na low but unchanged from 2 days ago, Cr ok UA without sig derangement lung and abd imaging largely unremarkable Labs Result Diagram: 07/23/17 0755 07/23/17 0755 Medications Medications Current Medications Allopurinol (Zyloprim) 100 mg BID PO ; Start 07/23/17 at 21:00 Enalapril Maleate (Vasotec) 10 mg DAILY PO ; Start 07/24/17 at 09:00 Ferrous Sulfate (Ferrous Sulfate (Ec)) 325 mg DAILY PO ; Start 07/24/17 at 09: 00 Pantoprazole (Protonix Tab) 40 mg BID PO ; Start 07/23/17 at 21:00 Acetaminophen (Tylenol Tab) 650 mg Q6H PRN PO PAIN LEVEL 1-3 OR FEVER; Start 07/23/17 at 14:00 Acetaminophen/ Hydrocodone Bitart ([place] (5/325)) 1 tab Q6H PRN PO MODERATE PAIN LEVEL 4-6; Start 07/23/17 at 14:00 Enoxaparin Sodium (Lovenox) 40 mg DAILY SC ; Start 07/24/17 at 09:00 LORI MIRANDA MD Jul 23, 2017 14:57
[2017-07-23 15:53] VITALS: BP 184/80; PULSE 88; RESP 20
[2017-07-23 16:09] VITALS: BP 144/63; RESP 20
[2017-07-23] MEDS: PIPER-TAZO 3.375 GM IV (PMX) 100 ML IVPB SCH (18:26)
[2017-07-23 20:27] VITALS: BP 184/95; RESP 20
[2017-07-23] MEDS: PANTOPRAZOLE (EC) 40 MG TAB PO SCH (21:00)
[2017-07-23] MEDS: ALLOPURINOL 100 MG TAB PO SCH (21:01)
[2017-07-24] MEDS: PIPER-TAZO 3.375 GM IV (PMX) 100 ML IVPB SCH ×4 (00:44→21:17)
[2017-07-24 02:00] VITALS: BP 108/61; RESP 18
[2017-07-24 06:27] LABS: BASOPHILS % 0.3 % (0.0-2.0); EOSINOPHILS % 0.3 % (0.0-7.0); HEMATOCRIT 35.1 % (42.0-52.0); HEMOGLOBIN 11.7 g/dl (14.0-18.0); LYMPHOCYTES # 1.2 10^3/ul (0.8-2.9); LYMPHOCYTES % 10.3 % (15.0-51.0); MEAN CORPUSCULAR HEMOGLOBIN 32.2 pg (29.0-33.0); MEAN CORPUSCULAR HGB CONC 33.3 g/dl (32.0-37.0); MEAN CORPUSCULAR VOLUME 96.7 fl (82.0-101.0); MEAN PLATELET VOLUME 9.6 fl (7.4-10.4); MONOCYTE # 0.7 10^3/ul (0.3-0.9); NEUTROPHIL # 9.1 10^3/ul (1.6-7.5); NEUTROPHILS % 81.8 % (39.0-77.0); PLATELET COUNT 227 10^3/UL (140-415); RED BLOOD COUNT 3.63 10^6/ul (4.70-6.10); RED CELL DISTRIBUTION WIDTH 13.5 % (11.5-14.5); WHITE BLOOD COUNT 11.1 10^3/ul (4.8-10.8)
[2017-07-24 06:43] LABS: CALCIUM 8.7 mg/dl (8.4-10.2); CREATININE 1.44 mg/dl (0.61-1.24); POTASSIUM 4.7 mmol/L (3.5-5.1)
[2017-07-24 07:58] VITALS: BP 135/65; RESP 18
[2017-07-24] MEDS: ALLOPURINOL 100 MG TAB PO SCH ×2 (09:00→21:16)
[2017-07-24] MEDS: PANTOPRAZOLE (EC) 40 MG TAB PO SCH ×2 (09:00→21:17)
[2017-07-24] MEDS: FERROUS SULFATE (EC) 325 MG TAB PO SCH ×2 (09:00→16:09)
[2017-07-24] MEDS: ENALAPRIL 5 MG TAB PO SCH ×2 (09:00→16:09)
[2017-07-24] MEDS: ENOXAPARIN 40 MG/0.4 ML SYG SC SCH (09:20)
--- NOTE | 2017-07-24 12:23 | PN ---
Date/Time of Note Date/Time of Note DATE: 07/24/17 TIME: 12:19 Assessment/Plan VTE Prophylaxis VTE Prophylaxis Intervention: SCD's Lines/Catheters IV Catheter Type (from Nrsg): Saline Lock Subjective 24 Hr Interval Summary Free Text/Dictation feels a little better Exam/Review of Systems Vital Signs Vitals Vital Signs Date Time Temp Pulse Resp B/P Pulse Ox O2 Delivery O2 Flow Rate FiO2 07/24/17 07:58 98.4 100 18 135/65 97 07/23/17 15:59 Nasal Cannula 2.0 Intake and Output 07/23/17 07/23/17 07/24/17 15:00 23:00 07:00 Intake Total 100 ml Balance 100 ml Exam nad no mrg lungs clear abd soft no rash Results Result Diagram: 07/24/1751607/24/1717 Results 24 hrs Laboratory Tests Test 07/24/17 05:17 White Blood Count 11.1 H Red Blood Count 3.63 L Hemoglobin 11.7 L Hematocrit 35.1 L Mean Corpuscular Volume 96.7 Mean Corpuscular Hemoglobin 32.2 Mean Corpuscular Hemoglobin Concent 33.3 Red Cell Distribution Width 13.5 Platelet Count 227 Mean Platelet Volume 9.6 Neutrophils % 81.8 H Lymphocytes % 10.3 L Monocytes % 6.0 Eosinophils % 0.3 Basophils % 0.3 Nucleated Red Blood Cells % 0.0 Neutrophils # 9.1 H Lymphocytes # 1.2 Monocytes # 0.7 Eosinophils # 0.0 Basophils # 0.0 Nucleated Red Blood Cells # 0.0 Sodium Level 134 L Potassium Level 4.7 Chloride Level 109 Carbon Dioxide Level 17 L Anion Gap 13 Blood Urea Nitrogen 32 H Creatinine 1.44 H Glucose Level 77 Calcium Level 8.7 Medications Medications Current Medications Allopurinol (Zyloprim) 100 mg BID PO Last administered on 07/23/17 21:01; Admin Dose 100 MG; Start 07/23/17 at 21:00 Enalapril Maleate (Vasotec) 10 mg DAILY PO ; Start 07/24/17 at 09:00 Ferrous Sulfate (Ferrous Sulfate (Ec)) 325 mg DAILY PO ; Start 07/24/17 at 09: 00 Pantoprazole (Protonix Tab) 40 mg BID PO Last administered on 07/23/17 21:00 ; Admin Dose 40 MG; Start 07/23/17 at 21:00 Acetaminophen (Tylenol Tab) 650 mg Q6H PRN PO PAIN LEVEL 1-3 OR FEVER Last administered on 07/23/17 21:00; Admin Dose 650 MG; Start 07/23/17 at 14:00 Acetaminophen/ Hydrocodone Bitart ([place] (5/325)) 1 tab Q6H PRN PO MODERATE PAIN LEVEL 4-6; Start 07/23/17 at 14:00 Enoxaparin Sodium 40 mg 40 mg DAILY SC Last administered on 07/24/17 09:20; Admin Dose 40 MG; Start 07/24/17 at 09:00 Piperacillin Sod/ Tazobactam Sod (Zosyn 3.375gm/ 100 ml (Pmx)) 100 ml @ 200 mls /hr Q6 IVPB Last administered on 07/24/17 06:03; Admin Dose 200 MLS/HR; Start 07/23/17 at 18:00 LORI MIRANDA MD Jul 24, 2017 12:23
[2017-07-24 13:43] VITALS: BP 139/79; RESP 18
--- NOTE | 2017-07-24 15:32 | RADRPT ---
PROCEDURE: MRI MRCP. CLINICAL INDICATION: Fever after biliary stent removal. Possible choledocholithiasis. TECHNIQUE: MRCP was performed without contrast. 3-D/multiplanar reformations and coronal rotating M IP images of the biliary tree were performed by the technologist and at an independent workstation. Evaluation is partially limited due to motion artifact. COMPARISON: CT dated 07/23/2017. FINDINGS: There is no intra or extrahepatic biliary ductal dilatation or filling defect within the biliary tree. There is no pancreatic ductal dilatation or intraluminal filling defect. The gallbla dder is surgically absent. The dilated cystic duct remnant measuring 13 mm in diameter is again iden tified. There are simple hepatic and bilateral renal cysts. There is trace inflammatory change in the gallbl adder fossa with no focal drainable collection in the abdomen. IMPRESSION: 1. Prior cholecystectomy with trace inflammatory change in the gallbladder fossa and dilatation of the cystic duct remnant measuring 13 mm in diameter. 2. No biliary ductal dilatation or choledocholithiasis, as questioned. RPTAT: HLBP .Ethan Joyner MD, MD Date Time Electronically viewed and signed by .Ethan Joyner MD, MD on 07/24/2017 15:32 .P/
[2017-07-24 20:27] VITALS: BP 144/71; RESP 20
[2017-07-25 02:53] VITALS: BP 173/81; RESP 20
[2017-07-25 04:00] VITALS: BP 136/70; PULSE 90
[2017-07-25] MEDS ORDERED: hydrALAzine 20 MG INJ IV PRN (04:30)
[2017-07-25] MEDS: PIPER-TAZO 3.375 GM IV (PMX) 100 ML IVPB SCH (05:04)
[2017-07-25 06:49] LABS: ALBUMIN 2.7 g/dl (3.3-4.9); ALBUMIN/GLOBULIN RATIO 0.93; BILIRUBIN,INDIRECT 0.5 mg/dl (0-1.1); BILIRUBIN,TOTAL 0.5 mg/dl (0.2-1.3); CALCIUM 8.2 mg/dl (8.4-10.2); CREATININE 1.3 mg/dl (0.61-1.24); TOTAL PROTEIN 5.6 g/dl (6.1-8.1)
[2017-07-25 08:10] VITALS: BP 162/77; RESP 20
[2017-07-25] MEDS: FERROUS SULFATE (EC) 325 MG TAB PO SCH (09:13)
[2017-07-25] MEDS: ALLOPURINOL 100 MG TAB PO SCH ×2 (09:13→20:44)
[2017-07-25] MEDS: PANTOPRAZOLE (EC) 40 MG TAB PO SCH ×2 (09:13→20:44)
[2017-07-25] MEDS: ENALAPRIL 5 MG TAB PO SCH (09:16)
[2017-07-25] MEDS: ENOXAPARIN 40 MG/0.4 ML SYG SC SCH (09:17)
[2017-07-25 09:19] VITALS: BP_SYST 115; BP_SYST 119; BP_DIAS 62; BP_DIAS 68; PULSE 101; PULSE 104
[2017-07-25] MEDS ORDERED: LIDOCAINE 1% (MPF) 5 ML VIAL SC ONE (12:00)
[2017-07-25] MEDS: ERTAPENEM SODIUM 1 GM in SOD CHLORIDE 0.9% 100 ML IVPB SCH (14:03)
--- NOTE | 2017-07-25 14:41 | PN ---
Date/Time of Note Date/Time of Note DATE: 07/25/17 TIME: 14:35 Assessment/Plan VTE Prophylaxis VTE Prophylaxis Intervention: SCD's Lines/Catheters IV [facility] Saline Lock Assessment/Plan Assessment/Plan assessment/plan 87 yo M with CKD, NAFLD, semi recent h/o gallstone pancreatitis with biliary stent placement with stent removal 10.18 here with sepsis 2/2 ESBL EColi bacteremia. Most likely from biliary source given recent stent removal. urine culture negative. PLAN -MRCP without retained stone -change abx to Invanz, will need total of 14 days of abx from first negative blood culture (07.24) -PICC ordered, consent obtained from patient and daughter -CM cs for outpatient abx pt can possibly be discharged as soon as tomorrow if arrangements can be made. Exam/Review of Systems Vital Signs Vitals Vital Signs Date Time Temp Pulse Resp B/P Pulse Ox O2 Delivery O2 Flow Rate FiO2 07/25/17 09:19 101 119/62 104 115/68 07/25/17 08:10 98.8 20 100 07/23/17 15:59 Nasal Cannula 2.0 Intake and Output 07/24/17 07/24/17 07/25/17 15:00 23:00 07:00 Intake Total 100 ml 820 ml 700 ml Output Total 400 ml 800 ml Balance -300 ml 820 ml -100 ml Results Result Diagram: 07/24/17 0517 07/25/17 0541 Results 24 hrs Laboratory Tests Test 07/25/17 05:41 Sodium Level 135 Potassium Level 4.0 Chloride Level 108 Carbon Dioxide Level 19 L Anion Gap 12 Blood Urea Nitrogen 25 H Creatinine 1.30 H Glucose Level 87 Calcium Level 8.2 L Total Bilirubin 0.5 Direct Bilirubin 0.00 Indirect Bilirubin 0.5 Aspartate Amino Transf (AST/SGOT) 30 Alanine Aminotransferase (ALT/SGPT) 40 Alkaline Phosphatase 76 Total Protein 5.6 #L Albumin 2.7 L Globulin 2.90 Albumin/Globulin Ratio 0.93 Medications Medications Current Medications Allopurinol (Zyloprim) 100 mg BID PO Last administered on 07/25/17 09:13; Admin Dose 100 MG; Start 07/23/17 at 21:00 Enalapril Maleate (Vasotec) 10 mg DAILY PO Last administered on 07/25/17 09: 16; Admin Dose 10 MG; Start 07/24/17 at 09:00 Ferrous Sulfate (Ferrous Sulfate (Ec)) 325 mg DAILY PO Last administered on 09:13; Admin Dose 325 MG; Start 07/24/17 at 09:00 Pantoprazole (Protonix Tab) 40 mg BID PO Last administered on 07/25/17 09:13 ; Admin Dose 40 MG; Start 07/23/17 at 21:00 Acetaminophen (Tylenol Tab) 650 mg Q6H PRN PO PAIN LEVEL 1-3 OR FEVER Last administered on 07/23/17 21:00; Admin Dose 650 MG; Start 07/23/17 at 14:00 Acetaminophen/ Hydrocodone Bitart ([place] (5/325)) 1 tab Q6H PRN PO MODERATE PAIN LEVEL 4-6; Start 07/23/17 at 14:00 Enoxaparin Sodium (Lovenox) 40 mg DAILY SC Last administered on 07/25/17 09: 17; Admin Dose 40 MG; Start 07/24/17 at 09:00 Hydralazine HCl 10 mg 10 mg Q4H PRN IV FOR SBP >160; Start 07/25/17 at 04:30 Ertapenem/Sodium Chloride (Invanz/NS) 100 ml @ 200 mls/hr Q24H IVPB Last administered on 07/25/17 14:03; Admin Dose 200 MLS/HR; Start 07/25/17 at 13: 00 LORI MIRANDA MD Jul 25, 2017 14:41
--- NOTE | 2017-07-25 15:14 | RADRPT ---
PROCEDURE: XR Chest. CLINICAL INDICATION: PICC line placement TECHNIQUE: PA and lateral chest x-ray. COMPARISON: 03/05/2017, 07/23/2017 FINDINGS: Interval placement of left-sided PICC line which terminates the cavoatrial junction. Exam is limited due to patient's hand overlying the right chest. The lungs are otherwise clear. No pleural effusion identified. No evidence of pneumothorax. The cardiomediastinal silhouette is unremarkable. The soft tissues are within normal limits. Bony structures are unremarkable. IMPRESSION: 1. Interval placement of left-sided PICC line satisfactory position. 2. No acute disease is seen in the chest. RPTAT: QQ .Michael Monroy MD, MD Date Time Electronically viewed and signed by .Michael Monroy MD, on 07/25/2017 15:14 .M/
[2017-07-25] MEDS ORDERED: HEPARIN (10 UNITS/ML) 5ML SYG IV ONE (16:00)
[2017-07-25 16:17] VITALS: BP 145/65; RESP 18
[2017-07-25 20:15] VITALS: BP 152/67; RESP 18
[2017-07-26 02:00] VITALS: BP 175/91; RESP 18
[2017-07-26 04:00] VITALS: BP 148/65; PULSE 84
[2017-07-26 07:13] VITALS: BP 170/88; RESP 16
[2017-07-26] MEDS: PANTOPRAZOLE (EC) 40 MG TAB PO SCH (08:06)
[2017-07-26] MEDS: FERROUS SULFATE (EC) 325 MG TAB PO SCH (08:07)
[2017-07-26] MEDS: ALLOPURINOL 100 MG TAB PO SCH (08:07)
[2017-07-26] MEDS: ENALAPRIL 5 MG TAB PO SCH (08:07)
[2017-07-26] MEDS: ENOXAPARIN 40 MG/0.4 ML SYG SC SCH (08:29)
--- NOTE | 2017-07-26 10:28 | PDOCDIS ---
Discharge Instructions CONDITION Patient Condition: Stable HOME CARE INSTRUCTIONS: Special Diet: reg FOLLOW UP/APPOINTMENTS Follow-up Plan Please take your medications as prescribed, please see your doctor in the clinic in the next 1 week. MINA CALI Jul 26, 2017 10:28
--- NOTE | 2017-07-26 10:32 | RADRPT ---
PROCEDURE: Ultrasound guidance for placement of needle in left upper extremity vein. CLINICAL INDICATION: Venous access. TECHNIQUE: Limited sonography of the left upper extremity was performed. Ultrasound images were recorded and s tored in the patient's medical record. COMPARISON: None. FINDINGS: The ultrasound images demonstrate a patent left upper extremity vein. The PICC line was inserted by the PICC line nurse. IMPRESSION: 1. Ultrasound guidance for a needle placement in a left upper extremity vein. 2. The left upper extremity vein is patent. RPTAT: QQ .Elliott Cao MD, MD Date Time Electronically viewed and signed by .Elliott Cao MD, on 07/26/2017 10:32 .R/
--- NOTE | 2017-07-26 11:39 | DS ---
DATE OF ADMISSION: 07/23/2017 DATE OF DISCHARGE: 07/26/2017 HISTORY OF PRESENT ILLNESS: The patient came in with fevers and sore throat. He was started on broad-spectrum antibiotics as he did have a fever of 101.9 on admission. He has an elevated white blood cell count. His blood cultures came out positive for ESBL E coli, 2/2 bottles. Apparently, the patient had, had a recent stent removal 2 days prior to admission, because of a prior history of gallstone pancreatitis with biliary stent placement then. In any event, the stent was removed. Patient received PICC line. Over the course of hospital stay, his white blood cell count improved. He was afebrile for the last 48 hours of admission. He was able to ambulate and tolerate a p.o. diet and antibiotics were set up by case management as an outpatient as patient will need a total of 2 weeks of antibiotics. That has been set up today. He has a PICC line in place and he will be discharged home today in improved condition. He will be sent with the following medications. DISCHARGE MEDICATIONS: 1. Allopurinol 100 mg b.i.d. 2. Enalapril 10 mg daily. 3. Ferrous sulfate 325 mg daily. 4. Meloxicam 7.5 mg daily. 5. Nitroglycerin 0.4 mg sublingual every 5 minutes p.r.n. 6. Protonix 40 mg b.i.d. 7. He will also go home with Ertapenum 1 gram IV q.24 hours for a total of 2 weeks. FINAL DIAGNOSES: 1. Fever and sepsis secondary to extended-spectrum beta- lactamase bacteremia now improving on IV antibiotics. 2. History of chronic kidney disease. 3. History of anemia. 4. History of gout. 5. History of recent gallstone pancreatitis, status post biliary stent placement with removal of the stent 2 days ago. 6. Prior history of laparoscopic cholecystectomy. 7. Essential hypertension. 8. History of cataract surgery. 9. Chronic obstructive pulmonary disease. Time spent on discharge of this patient 40 minutes. Dictated By: Jasen Modi MD /lory/zoran /Document#: [id number]
[2017-07-26] MEDS: ERTAPENEM SODIUM 1 GM in SOD CHLORIDE 0.9% 100 ML IVPB SCH (12:25)
== END 2017-07-26 13:50 | disposition home health service (06) | DRG 871 ==
LOC: E/R 07:24 → MS2 09:22
PROVIDERS: ADMIT Internal Medicine; ATTEND Internal Medicine
DX: A41.51 Sepsis due to Escherichia coli [E. coli] (principal); K85.10 Biliary acute pancreatitis without necrosis or infection; K76.0 Fatty (change of) liver, not elsewhere classified; J44.9 Chronic obstructive pulmonary disease, unspecified; Z16.12 Extended spectrum beta lactamase (ESBL) resistance; D64.9 Anemia, unspecified; I12.9 Hypertensive chronic kidney disease with stage 1 through stage 4 chronic kidney disease, or unspecified chronic kidney disease; N18.9 Chronic kidney disease, unspecified; M1A.9XX0 Chronic gout, unspecified, without tophus (tophi)
CPT/HCPCS: 36569; 71010; 74176; 74181; 76937; 80048; 80053; 81001; 83605; 83690; 84484; 85025; 85610; 85730; 87040; 87086; 87400; 93005; 96374; 96375; J0360; J0692; J1335; J1642; J1650; J2543; J3370; J7030

== ENCOUNTER 2017-08-06 10:11 | Inpatient (IN) | payer OTHER ==
[2017-08-06] VITALS (48 sets, daily range): BP systolic 68–133; BP diastolic 45–120; PULSE 77–123; RESP 17–29; Ht 157.5 cm; Wt 50.0 kg
[~2017-08-06] VITALS: Ht 157.5 cm; Wt 50.0 kg
[~2017-08-06 10:11] MED LIST changes: +DOPamine-D5W 1.6 MG/ML 250 ML ONE; +HEPARIN 5,000 UNIT/0.5 ML VIAL ONE
[2017-08-06] MEDS ORDERED: SOD CHLORIDE 0.9% 1,000 ML IV STA ×2 (10:13→10:16)
[2017-08-06] MEDS ORDERED: HEPARIN 1000 UNITS/ML 10 ML INJ IV STA (10:16)
[2017-08-06 10:26] LABS: BASOPHIL # 0.1 10^3/ul (0.0-0.1); BASOPHILS % 0.6 % (0.0-2.0); EOSINOPHILS # 0.2 10^3/ul (0.0-0.5); EOSINOPHILS % 1.9 % (0.0-7.0); HEMATOCRIT 32.7 % (42.0-52.0); HEMOGLOBIN 10.4 g/dl (14.0-18.0); LYMPHOCYTES # 4.3 10^3/ul (0.8-2.9); MEAN CORPUSCULAR HEMOGLOBIN 31.7 pg (29.0-33.0); MEAN CORPUSCULAR HGB CONC 31.8 g/dl (32.0-37.0); MEAN CORPUSCULAR VOLUME 99.7 fl (82.0-101.0); MONOCYTE # 0.8 10^3/ul (0.3-0.9); MONOCYTES % 7.1 % (0.0-11.0); NEUTROPHIL # 5.4 10^3/ul (1.6-7.5); NEUTROPHILS % 49.8 % (39.0-77.0); PLATELET COUNT 376 10^3/UL (140-415); RED BLOOD COUNT 3.28 10^6/ul (4.70-6.10); RED CELL DISTRIBUTION WIDTH 13.8 % (11.5-14.5); WHITE BLOOD COUNT 10.9 10^3/ul (4.8-10.8)
--- NOTE | 2017-08-06 10:29 | RADRPT ---
PROCEDURE: XR Chest. CLINICAL INDICATION: Chest pain TECHNIQUE: Single frontal view of the chest was obtained COMPARISON: DR STUART CHEST 03/05/2017 FINDINGS: The heart is enlarged. The thoracic aorta is calcified. There is a left-sided PICC line in place, w ith its tip overlying the cavoatrial junction.. There is a small right upper lobe calcified granuloma. There is no focal infiltrate. There is no pleural effusion or pneumothorax. RPTAT: AA IMPRESSION: Mild cardiomegaly. Calcified aorta consistent with atherosclerotic disease. Small right upper lobe calcified granuloma. .Nitesh Villa MD, MD Date Time Electronically viewed and signed by .Nitesh Villa MD, on 08/06/2017 10:28 .S/
[2017-08-06] MEDS ORDERED: HEPARIN 1000 UNITS/NS (A-LINE) 2,000 ML ONE (10:39)
[2017-08-06] MEDS ORDERED: LIDOCAINE 1% (MDV) 20 ML INJ ONE (10:39)
[2017-08-06] MEDS ORDERED: IODIXANOL LOCM 100 ML BTL ONE (10:39)
[2017-08-06] MEDS ORDERED: IOHEXOL 350MG/ML 50 ML BTL ONE (10:39)
[2017-08-06] MEDS ORDERED: HEPARIN 1000 UNITS/ML 10 ML INJ ONE ×2 (10:39→11:40)
[2017-08-06] MEDS ORDERED: FENTAnyl 50 MCG/ML VIAL ONE (10:40)
[2017-08-06] MEDS ORDERED: MIDAZOLAM 1 MG/ML 2 ML INJ ONE (10:40)
[2017-08-06] MEDS ORDERED: VERAPAMIL 5 MG INJ ONE (10:40)
[2017-08-06] MEDS ORDERED: NITROGLYCERIN (IC) 100 MCG/ML INJ ONE (10:40)
[2017-08-06] MEDS ORDERED: DOPamine-D5W 1.6 MG/ML 250 ML ONE (10:43)
[2017-08-06 10:44] LABS: INR 0.98; PARTIAL THROMBOPLASTIN TIME 27.3 Sec (25.0-35.0)
[2017-08-06 10:45] LABS: ANION GAP 16 (8-16); BLOOD UREA NITROGEN 24 mg/dl (7-20); CALCIUM 8.4 mg/dl (8.4-10.2); CARBON DIOXIDE 17 mmol/L (21-31); CHLORIDE 109 mmol/L (97-110); CREATININE 1.22 mg/dl (0.61-1.24); GLUCOSE 98 mg/dl (70-220); SODIUM 138 mmol/L (135-144)
[2017-08-06] MEDS ORDERED: NORepinephrine 4 MG INJ ONE (10:46)
[2017-08-06] MEDS ORDERED: TICAGRELOR 90 MG TABLET ONE ×2 (10:54→11:31)
[2017-08-06] MEDS ORDERED: NORepinephrine 8MG/250 ML (PMX 250 ML ONE (10:57)
[2017-08-06] MEDS ORDERED: BIVALIRUDIN 250MG /NS 50 ML 50 ML IVPB ONE (10:57)
[2017-08-06] MEDS ORDERED: NORepinephrine 8MG/250 ML (PMX 250 ML IV SCH ×2 (11:00→19:30)
[2017-08-06 11:08] LABS: TROPONIN-I < 0.012 ng/ml (0.00-0.12)
[2017-08-06] MEDS ORDERED: ONDANSETRON 4 MG INJ ONE (11:10)
[2017-08-06] MEDS ORDERED: EPTIFIBATIDE 100 ML IV SCH (11:36)
[2017-08-06] MEDS ORDERED: SOD CHLORIDE 0.9% 1,000 ML IV SCH (11:36)
[2017-08-06] MEDS ORDERED: DOCUSATE SODIUM 100 MG CAP PO PRN (12:00)
[2017-08-06] MEDS ORDERED: ONDANSETRON 4 MG INJ IV PRN ×2 (12:00)
[2017-08-06] MEDS ORDERED: ACETAMINOPHEN 325 MG TAB PO PRN (12:00)
[2017-08-06] MEDS ORDERED: OXYCODONE/ACETAMINOPHEN (5/325) TAB PO PRN (12:00)
[2017-08-06] MEDS ORDERED: HYDROCODONE/APAP (5/325) TAB PO PRN (12:00)
[2017-08-06] MEDS ORDERED: morphine 2 MG INJ IV PRN ×2 (12:00)
[2017-08-06] MEDS ORDERED: ACETAMINOPHEN 650MG/20.3ML CUP PO PRN (12:00)
[2017-08-06] MEDS ORDERED: PANTOPRAZOLE 40 MG INJ IV SCH (12:00)
[2017-08-06] MEDS ORDERED: BISACODYL (EC) 5 MG TAB PO PRN (12:00)
[2017-08-06] MEDS ORDERED: METOCLOPRAMIDE 10 MG INJ IV PRN (12:00)
[2017-08-06] MEDS ORDERED: MAGNESIUM HYDROXIDE 30ML CUP PO PRN (12:00)
[2017-08-06] MEDS ORDERED: ONDANSETRON 4 MG TAB PO PRN (12:00)
--- NOTE | 2017-08-06 12:00 | OPR ---
Date/Time of Note Date/Time of Note DATE: 08/06/17 TIME: 11:46 Operative Report Procedure Date: Aug 06, 2017 Preoperative Diagnosis INF STEMI Postoperative Diagnosis same Surgeon see signature line Property Worker n/a Anesthesia Type: moderate sedation Estimated Blood Loss: minimal Transfusion none Specimen none Grafts/Implants none Complications none Procedure Description Plug Maker: Hayden Vitale MD Indication: inferior STEMI, cardiogenic shock. Procure performed: #1 emergent left heart catheterization and selective right and left coronary angiogram. #2 Right femoral angiogram 3. emergent Successful PTCA and stenting of mid right coronary artery using a 3.5 x 38 mm Synergy drug-eluting stent 4. Successful thrombectomy of the right coronary artery using a Pronto device 5. Moderate sedation for more than 60 minutes Findings: 1. Left main: birfurcates to LAD & LCX. It has 10% distal stenosis. 2. LAD: has 30% stenosis at proximal LAD, and 40% stenosis at mid LAD. 3. Left circumflex artery: is nondominant. it has 40% proximal stenosis 4. Ramus intermediate : Is a moderate-sized vessel with no significant stenosis 5. RCA: is large dominant. it has subtotal mid stenosis with evidence of intraluminal thrombus. After successful PTCA stenting of this lesion there was no significant residual stenosis left. 6. LVEDP 17 7. initial BP: 57/32. Final BP 95/62 Procedure in detail: risks including but not limited to risk of infection vascular complications, bleeding complications, NM stroke arrhythmia renal failure at even were discussed with the patient in an emergently manner. but written informed consent could not be obtained. . Patient was brought into the cardiac yard labor supervisor and placed in supine position. Right and left groin area was prepped and draped in regular sterile fashion and then he was in anesthetized using 1% lidocaine. Right femoral artery was cannulated and using modified seldinger technique a 6 [place] sheath was placed in the right femoral artery. initially BP was 57/32 and dopamine was started. JL4 catheter was advanced and engaged into the left main coronary artery and angiographic view was obtained. A JR4 guiding head was advanced to engage the right coronary artery and angiographic view was done. At this time we decided to perform PCI of the RCA. BMW wire was used and advanced across the lesion and placed distal to the arTery. I used a 2.5 x 12 balloon which was placed across the lesion and predilated the vessel. Then prtonto device was used and multiple runs of thrombectomy was done. Same balloon was used again and dilated the vessel more. Each time flow intermittently was getting low. Multiple runs of thrombectomy was done again with Pronto. Then I used a 3 x 38 mm Synergy drug-eluting stent which was placed across the lesion and deployed at 16 steve. Finally a 3.5 x 15 mm noncompliant balloon was used and postdilated the stent and up to 18 steve. The graft was obtained. I had to run on the rounds of thrombectomy using Pronto.. Final angiographic view was obtained which showed [place]-3 flow no evidence of dissection and no significant residual stenosis at the site of the stent. Right femoral angiogram was performed. Pigtail was advanced to engage the left ventricle hemodynamics as recorded by pullback aortic pressure was measured. Patient tolerated the procedure well with no complication. Patient was transferred to ICU in stable condition. Conclusions: Successful PTCA stent thrombectomy of the right coronary artery from subtotal stenosis to no significant residual stenosis using a 3 x 38 mm Synergy stent. Recommendations: Aggressive medical therapy. aspirin indefinitely dual antiplatlet therapy with brilinta ICU care overnight. HAYDEN VITALE MD Aug 06, 2017 12:00
--- NOTE | 2017-08-06 12:16 | ERD ---
ER Documentation Chief Complaint Chief Complaint body pain/torso pain while at the clinic this morning; ems called STEMI HPI Patient is an 87-year-old male who presents with a STEMI. Please note the history and physical exam is limited secondary to the patient's confusion at this time. The patient is complaining of generalized weakness and nausea. He said it started this morning. He went to a clinic and since he felt like this they did an EKG and found a STEMI. He was brought in by ambulance. He denies pain. He was given aspirin by paramedics. He does not know the name of his primary doctor. ROS All systems reviewed and are negative except as per history of present illness. Medications Home Meds Active Scripts Pantoprazole* (Pantoprazole*) 40 Mg Tablet.dr, 40 MG PO BID for 60 Days, #120 Prov:LORI MIRANDA MD 03/21/17 Reported Medications Nitroglycerin* (Nitrostat*) 0.4 Mg Tab.subl, 0.4 MG SL Q5MIN Y for CHEST PAIN, BOTTLE 07/21/17 Ferrous Sulfate* (Ferrous Sulfate*) 325 Mg Tabec, 325 MG PO DAILY, TAB 07/21/17 Meloxicam* (Meloxicam*) 7.5 Mg Tablet, 7.5 MG PO DAILY, #30 TAB 07/21/17 Enalapril Maleate* (Enalapril Maleate*) 10 Mg Tablet, 10 MG PO DAILY, TAB 09/29/16 Allopurinol* (Zyloprim*) 100 Mg Tablet, 100 MG PO BID 02/17/13 Allergies Allergies: Coded Allergies: No Known Allergy (Unverified , 08/06/17) PMhx/Soc History of Surgery: Yes (gall bladder removal APRIL 2017) Anesthesia Reaction: No Hx Neurological Disorder: No Hx Respiratory Disorders: No Hx Psychiatric Problems: No Hx Miscellaneous Medical Probl: No Hx Alcohol Use: No Hx Substance Use: No Hx Tobacco Use: No Smoking Status: Never smoker FmHx Family History: No diabetes Physical Exam Vitals Vital Signs Date Time Temp Pulse Resp B/P Pulse Ox O2 Delivery O2 Flow Rate FiO2 08/06/17 10:11 98.2 59 22 72/53 95 08/06/17 10:11 Nasal Cannula 4 Physical Exam Const: Moderate distress Head: Atraumatic Eyes: Normal Conjunctiva ENT: Normal External Ears, Nose and Mouth. Neck: Full range of motion..~ No meningismus. Resp: Clear to auscultation bilaterally Cardio: Regular rate and rhythm, no murmurs Abd: Soft, non tender, non distended. Normal bowel sounds Skin: Pale skin Back: No midline or flank tenderness Ext: No cyanosis, or edema Neur: Awake but confused Result Diagram: 08/06/17 1015 08/06/17 1015 Results 24 hrs Laboratory Tests Test 08/06/17 10:15 White Blood Count 10.910^3/ul Red Blood Count 3.2810^6/ul Hemoglobin 10.4g/dl Hematocrit 32.7% Mean Corpuscular Volume 99.7fl Mean Corpuscular Hemoglobin 31.7pg Mean Corpuscular Hemoglobin Concent 31.8g/dl Red Cell Distribution Width 13.8% Platelet Count 48101^3/UL Mean Platelet Volume 9.0fl Neutrophils % 49.8% Lymphocytes % 40.0% Monocytes % 7.1% Eosinophils % 1.9% Basophils % 0.6% Nucleated Red Blood Cells % 0.0/100WBC Neutrophils # 5.410^3/ul Lymphocytes # 4.310^3/ul Monocytes # 0.810^3/ul Eosinophils # 0.210^3/ul Basophils # 0.110^3/ul Nucleated Red Blood Cells # 0.010^3/ul Prothrombin Time 13.0Sec Prothrombin Time Ratio 1.0 INR International Normalized Ratio 0.98 Activated Partial Thromboplast Time 27.3Sec Sodium Level 138mmol/L Potassium Level 4.0mmol/L Chloride Level 109mmol/L Carbon Dioxide Level 17mmol/L Anion Gap 16 Blood Urea Nitrogen 24mg/dl Creatinine 1.22mg/dl Glucose Level 98mg/dl Calcium Level 8.4mg/dl Troponin I < 0.012ng/ml Current Medications Medications (Trade) Dose Ordered Sig/Karthikeyan Route PRN Reason Start Time Stop Time Status Last Admin Dose Admin Sodium Chloride (NS) 1,000 ml @ 1,000 mls/hr Q1H STAT IV 08/06/17 10:13 08/06/17 11:12 DC 08/06/17 10:31 Heparin Sodium (Porcine) 4000 unit 4,000 unit ONCE STAT IV 08/06/17 10:16 08/06/17 10:18 DC Sodium Chloride (NS) 1,000 ml @ 1,000 mls/hr Q1H STAT IV 08/06/17 10:16 08/06/17 11:15 DC 08/06/17 10:31 Procedures/MDM EKG read by me: Rate/Rhythm: First-degree AV block at a rate of 55 Intervals: Prolonged NM interval Impression: First-degree AV block with significant ST elevations in the inferior leads with reciprocal depressions consistent with STEMI Chest X-ray 1V Interpreted by me: Soft Tissue: No acute abnormalities Bones: No acute abnormalities Mediastinum/Cardiac Silhouette/Lungs: Cardiomegaly Patient is an 87-year-old male who presents with a STEMI found by outside plant technician EKG. He arrived to the emergency department at 10:10 AM and a code STEMI was called at 10:11 AM. Please note the paramedics did not send the EKG via the email system. I spoke with Dr. Vitale at 10:15 AM and we decided that the patient should go to the cardiac Weapons Engineer. The patient was transferred to the cardiac Weapons Engineer at 10:[address] Vitale asked for 4000 units of IV heparin which was given. The patient will be admitted to the ICU under the care of Dr. Resendez from the panel team who was admitted the patient before. Critical Care: Time: 35 minutes excluding all billable procedures. Treatments/Evaluations: Close monitoring and treatment of unstable vital signs, cardiorespiratory, and neurologic status, while maintaining tight balance of fluid, respiratory, and cardiac interventions. Departure Diagnosis: Primary Impression: STEMI (ST elevation myocardial infarction) Involved coronary artery: unspecified coronary artery Qualified Code: I21.3 - ST elevation myocardial infarction (STEMI), unspecified artery Condition: Critical LAVON HUNTER MD Aug 06, 2017 12:16
--- NOTE | 2017-08-06 14:08 | HP ---
Date/Time of Note Date/Time of Note DATE: 08/06/17 TIME: 13:58 Assessment/Plan VTE Prophylaxis VTE Prophylaxis Intervention: SCD's Lines/Catheters IV Catheter Type (from Nrsg): PICC Line Central line still needed: Yes Assessment/Plan Assessment/Plan 87 yo M without known hx of cardiopulmonary disease presented with weakness to clinic, found to have STEMI. Currently in cardiogenic shock from STEMI as evidence by need for dopamine drip to maintain MAPs. This was also the most likely etio of his hypotension on arrival PLAN dopamine drip as per cardiology bb/acei/statin/DAPT as per cardiology anderson culture for hypotension though suspect 2/2 STEMI. CXR without evidence of pna cont home gout meds HPI/ROS Admit Date/Time Admit Date/Time Aug 06, 2017 at 10:21 ROS CC STEMI HPI 87 yo M with pmhx gout, h/o gallstone pancreatitis sp cholecystectomy c/b post op abscess warranting drainage, recent ESBL EColi bacteremia 2/2 biliary stent removal presented to clinic with c/o weakness and fatigue this AM. EKG at clinic concerning for STEMI. Pt transferred to ER where repeat EKG with STEMI. Pt taken urgently to yard labor supervisor where he was found to have 100% RCA occlusion for which he underwent PCI. Regarding pt's ESBL Ecoli bacteremia, this was diagnosed at the end of July here at [facility] Pt discharged with 2 weeks of Invanz, last dose was scheduled for today. Pt a little fatigued at time of my attempted eval. PMH/Family/Social Past Medical History as per HPI Social History lives in the community Smoking Status: Never smoker Exam/Review of Systems Vital Signs Vitals Vital Signs Date Time Temp Pulse Resp B/P Pulse Ox O2 Delivery O2 Flow Rate FiO2 08/06/17 13:00 102 20 103/59 100 Mask 6.0 08/06/17 12:00 97.6 Exam Exam overwhelmed, wearing oxygen mask MMM no gross thyromeg lungs clear no mrg abd soft +tophaceous gouty changes to bl feet no rashes labs reviewed Labs Result Diagram: 08/06/17 1015 08/06/17 1015 Medications Medications Current Medications Ondansetron HCl (Zofran Tab) 4 mg Q6H PRN PO NAUSEA AND/OR VOMITING; Start 08/06/17 at 12:00 Ondansetron HCl (Zofran Inj) 4 mg Q6H PRN IV NAUSEA AND/OR VOMITING; Start 08/06/17 at 12:00 Metoclopramide HCl (Reglan) 10 mg Q6H PRN IV NAUSEA AND/OR VOMITING; Start 08/06/17 at 12:00 Acetaminophen (Tylenol Liquid) 650 mg Q6H PRN PO PAIN LEVEL 1-3 OR FEVER; Start 08/06/17 at 12:00 Acetaminophen (Tylenol Tab) 650 mg Q6H PRN PO PAIN LEVEL 1-3 OR FEVER; Start 08/06/17 at 12:00 Acetaminophen/ Hydrocodone Bitart ([place] (5/325)) 1 tab Q6H PRN PO PAIN LEVEL 4 -6; Start 08/06/17 at 12:00 Docusate Sodium (Colace) 100 mg Q12H PRN PO CONSTIPATION; Start 08/06/17 at 12: 00 Magnesium Hydroxide (Milk Of Mag) 30 ml DAILY PRN PO CONSTIPATION; Start at 12:00 Bisacodyl (Dulcolax) 5 mg DAILY PRN PO CONSTIPATION; Start 08/06/17 at 12:00 Allopurinol (Zyloprim) 100 mg BID PO ; Start 08/06/17 at 21:00 Enalapril Maleate (Vasotec) 10 mg DAILY PO ; Start 08/07/17 at 09:00 Ferrous Sulfate (Ferrous Sulfate (Ec)) 325 mg DAILY PO ; Start 08/07/17 at 09:00 Pantoprazole (Protonix Tab) 40 mg BID PO ; Start 08/06/17 at 21:00 Aspirin (Halfprin) 81 mg DAILY PO ; Start 08/07/17 at 09:00 Ticagrelor 90 mg 90 mg BID PO ; Start 08/06/17 at 21:00 Eptifibatide (Integrilin) 100 ml @ 1.5 mls/hr Q24H IV Last administered on t 11:21; Admin Dose 1.5 MLS/HR; Start 08/06/17 at 11:36; Stop 08/06/17 at 23:35 Oxycodone/ Acetaminophen (Percocet (5/ 325)) 1 tab Q4H PRN PO REPORTED NON- CARDIAC PAIN 4-7; Start 08/06/17 at 12:00 Morphine Sulfate (morphine) 1 mg Q1H PRN IV PAIN NOT RELIEVED BY OTHERS; Start 08/06/17 at 12:00 Docusate Sodium (Colace) 100 mg BID PO ; Start 08/06/17 at 21:00 Atorvastatin Calcium 80 mg 80 mg DAILY@21 PO ; Start 08/06/17 at 21:00 Sodium Chloride (NS) 1,000 ml @ 100 mls/hr Q10H IV Last administered on t 13:48; Admin Dose 100 MLS/HR; Start 08/06/17 at 11:36; Stop 08/06/17 at 21: 35 LORI MIRANDA MD Aug 06, 2017 14:08
--- NOTE | 2017-08-06 14:14 | RADRPT ---
Vent Rate: 102 bpm RR Interval: 0 msec PA Interval: 190 msec QRS Duration: 74 msec QT Interval: 354 msec QTC Interval: 461 msec P-R-T [place]: 58 - -38 - -18 degrees Sinus tachycardia Left axis deviation Inferior infarct , age undetermined Abnormal ECG Electronically Signed By: Jarod Guadarrama [id number]
[2017-08-06] MEDS ORDERED: DOPamine-D5W 1.6 MG/ML 250 ML IV SCH (14:30)
[2017-08-06 15:17] LABS: BASOPHIL # 0.1 10^3/ul (0.0-0.1); BASOPHILS % 0.5 % (0.0-2.0); EOSINOPHILS # 0.1 10^3/ul (0.0-0.5); EOSINOPHILS % 0.6 % (0.0-7.0); HEMATOCRIT 31.3 % (42.0-52.0); HEMOGLOBIN 10.5 g/dl (14.0-18.0); LYMPHOCYTES % 16.2 % (15.0-51.0); MEAN CORPUSCULAR HEMOGLOBIN 32.3 pg (29.0-33.0); MEAN CORPUSCULAR HGB CONC 33.5 g/dl (32.0-37.0); MEAN CORPUSCULAR VOLUME 96.3 fl (82.0-101.0); MEAN PLATELET VOLUME 8.9 fl (7.4-10.4); MONOCYTE # 1.1 10^3/ul (0.3-0.9); MONOCYTES % 8.7 % (0.0-11.0); NEUTROPHILS % 73.4 % (39.0-77.0); PLATELET COUNT 426 10^3/UL (140-415); RED BLOOD COUNT 3.25 10^6/ul (4.70-6.10); RED CELL DISTRIBUTION WIDTH 13.7 % (11.5-14.5); WHITE BLOOD COUNT 12.3 10^3/ul (4.8-10.8)
[2017-08-06 15:34] LABS: CALCIUM 8.1 mg/dl (8.4-10.2); CREATININE 1.21 mg/dl (0.61-1.24); POTASSIUM 4.2 mmol/L (3.5-5.1)
--- NOTE | 2017-08-06 16:20 | RADRPT ---
Echocardiogram Report Patient Name: WILLIAM BRITTON Gender: Male Date: 1930 Study Date: 06-Aug-2017 Liquefied Petroleum Gasfitter: Fany Worley RDCS Location: 107 Ref. Physician: HAYDEN VITALE Quality: Technically Difficult Study Procedures: Transthoracic echocardiogram with complete 2D, M-Mode, and doppler examination. Indications: STEMI. 2D/M Mode Doppler Measurement Value Normal Ranges Measurement Value Normal Ranges LVIDd 2D 3.9 3.5 - 5.6 cm DELGADO Vmax 1.7 cm2 LVIDs 2D 3.0 2.1 - 4.1 cm [place] VTI 1.7 cm2 LVPWd 2D 1.2 0.6 - 1.1 cm AV Peak Shayne 1.6 m/sec IVSd 2D 1.2 0.6 - 1.1 cm AV Peak PG 10.7 mmHg AoR Diam 2D 3.0 2.0 - 3.7 cm AI Peak PG 36.5 mmHg EDV 2D 67.2 cm3 AI Peak Shayne 3.0 m/sec ESV 2D 28.0 cm3 AI PHT 616.2 msec LA Dimen 2D 2.8 2.3 - 4.0 cm LVOT Peak Shayne 0.9 m/sec LVOT Diam 2.0 cm LVOT Peak PG 3.4 mmHg Findings Left Ventricle: Lower limits of normal systolic function. Normal left ventricular cavity size. Mild concentric left ventricular hypertrophy. Ejection fraction is visually estimated at 50 %. Tissue Doppler/Mitral Doppler indices are consistent with impaired relaxation (Stage I diastolic dysfunction). These segments of the LV are hypokinetic inferior mid segment and inferior apex segment. Right Ventricle: Normal right ventricular size. Normal right ventricular systolic function. Left Atrium: The left atrium is normal in size. Right Atrium: The right atrium is normal in size. Mitral Valve: Normal appearance of the mitral valve. Mild mitral annular calcification. Trace mitral regurgitation. Aortic Valve: No significant aortic stenosis or insufficiency. Aortic cusps appear mildly calcified. Tricuspid Valve: Normal appearance of the tricuspid valve. Unable to obtain RVSP due to minimal presence of tricuspid regurgitation. Pulmonic Valve: Pulmonic valve not well visualized. Pericardium: Normal pericardium with no significant pericardial effusion. Aorta: Normal aortic root. IVC: Normal size and normal respiratory collapse consistent with normal right atrial pressure. Conclusions 1.Lower limits of normal systolic function. Normal left ventricular cavity size. Mild concentric left ventricular hypertrophy. Ejection fraction is visually estimated at 50 %. Tissue Doppler/Mitral Doppler indices are consistent with impaired relaxation (Stage I diastolic dysfunction). These segments of the LV are hypokinetic inferior mid segment and inferior apex segment. 2.Normal appearance of the mitral valve. Mild mitral annular calcification. Trace mitral regurgitation. 3.No significant aortic stenosis or insufficiency. Aortic cusps appear mildly calcified. 4.Normal appearance of the tricuspid valve. Unable to obtain RVSP due to minimal presence of tricuspid regurgitation. Electronically Signed By: Hayden Vitale 06-Aug-2017 16:19:46 -0700 Patient Name: WILLIAM BRITTON Study Date: 06-Aug-2017 [id number]
--- NOTE | 2017-08-06 16:43 | CONS ---
Date/Time of Note Date/Time of Note DATE: 08/06/17 TIME: 16:35 Assessment/Plan Assessment/Plan Chief Complaint/Hosp Course 1. Acute inferior STEMI 2/ S/P emergent thrombectomy/ PCI RCA (using FEDER[place]) 3. Cardiogenic shock 4. s/p recent bacteremia 5. dyslipidemia 6/ abnormal ECG due to above Rec: ASA Brilinta (prescription was given to daughter with coupon to get if filled now). integrillin for 12 hour and then stop ICU care levophed drip for now and wean off if SBP > 90 ABX PER IM. statin cont close ICU care More than 40 minutes of critical care time was spent in management and treatment of this critically ill patient excluding any procedures. Thank you for his referral. I will continue to follow along with you. HAYDEN WAGNER MD [facility] Problems: Consultation Date/Type/Reason Admit Date/Time Aug 06, 2017 at 10:21 Date of Consultation: Aug 06, 2017 Type of Consultation: interventional card Reason for Consultation STEMI. cardiogenic shock. Referring Provider: LAVON HUNTER MD Hx of Present Illness Emergent Interventional cardiology Consultation CC: weakness HPI: Thank you for his referral. History was obtained from the patient on discussion with ER physician Dr. Hunter, extensive review of the old chart discussion with family including daughter and son and discussion with Dr. roach. This is a 87-year-old gentleman with multiple noncardiac problems who was seen today in the clinic for follow-up. Patient is complaining of weakness and nausea and vomiting. EKG showed marked ST elevation inferiorly consistent with acute inferior ST elevation myocardial infarction. Patient was seen by myself immediately. He was taken for emergent cardiac catheterization. Was also noted to be severely hypotensive. Initial blood pressure in the [place] was 50s over 30s. 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 He underwent successful PCI as well as thrombectomy and stenting of the right coronary artery. Blood pressure has improved now but still required to be on Levophed drip. He denies any chest pain or pressure to me. Discussed with daughter and son extensively. PMH: gout, h/o gallstone pancreatitis sp cholecystectomy c/b post op abscess warranting drainage, recent ESBL EColi bacteremia 2/2 biliary stent removal Allergy NKDA Social: nonsmoker family hx: no early CAD MEDS REVIEWED. ROS: as above Social History Smoking Status: Never smoker Exam/Review of Systems Vital Signs Vitals Vital Signs Date Time Temp Pulse Resp B/P Pulse Ox O2 Delivery O2 Flow Rate FiO2 08/06/17 13:00 102 20 103/59 100 Mask 6.0 08/06/17 12:00 97.6 Exam General: no acute distress HEENT: NC/AT. pupils are equal. round. NECK: NO JVD. no stridor. CV: RRR. systolic murmur; no gallop or rubs. PULM: no wheezing or rhonchi. GI: SOFT, NT, ND, no rebound or guarding Extremity: trace B/L LE edema. no clubbing. neuro: awake and alert, OX2. Psych: calm and pleasant rectal: deferred : normal male vascular R fem sheath removed now with no hematoma or bleeding ECG NSR marked inf ST elevation c/w acute inferior STEMI Echo reviewed personally: 1. Lower limits of normal systolic function. Normal left ventricular cavity size. Mild concentric left ventricular hypertrophy. Ejection fraction is visually estimated at 50 %. Tissue Doppler/Mitral Doppler indices are consistent with impaired relaxation (Stage I diastolic dysfunction). These segments of the LV are hypokinetic inferior mid segment and inferior apex segment. 2. Normal appearance of the mitral valve. Mild mitral annular calcification. Trace mitral regurgitation. 3. No significant aortic stenosis or insufficiency. Aortic cusps appear mildly calcified. 4. Normal appearance of the tricuspid valve. Unable to obtain RVSP due to minimal presence of tricuspid regurgitation. Results Result Diagram: 08/06/17 1500 08/06/17 1500 Results 24 hrs Laboratory Tests Test 08/06/17 10:15 08/06/17 15:00 White Blood Count 10.9 H 12.3 H Red Blood Count 3.28 L 3.25 L Hemoglobin 10.4 L 10.5 L Hematocrit 32.7 L 31.3 L Mean Corpuscular Volume 99.7 96.3 Mean Corpuscular Hemoglobin 31.7 32.3 Mean Corpuscular Hemoglobin Concent 31.8 L 33.5 Red Cell Distribution Width 13.8 13.7 Platelet Count 376 # 426 H Mean Platelet Volume 9.0 8.9 Neutrophils % 49.8 73.4 Lymphocytes % 40.0 16.2 Monocytes % 7.1 8.7 Eosinophils % 1.9 0.6 Basophils % 0.6 0.5 Nucleated Red Blood Cells % 0.0 0.0 Neutrophils # 5.4 9.0 H Lymphocytes # 4.3 H 2.0 Monocytes # 0.8 1.1 H Eosinophils # 0.2 0.1 Basophils # 0.1 0.1 Nucleated Red Blood Cells # 0.0 0.0 Prothrombin Time 13.0 Prothrombin Time Ratio 1.0 INR International Normalized Ratio 0.98 Activated Partial Thromboplast Time 27.3 Sodium Level 138 136 Potassium Level 4.0 4.2 Chloride Level 109 108 Carbon Dioxide Level 17 L 18 L Anion Gap 16 14 Blood Urea Nitrogen 24 H 24 H Creatinine 1.22 1.21 Glucose Level 98 120 Calcium Level 8.4 8.1 L Troponin I < 0.012 8.620 *H Magnesium Level 1.1 L Medications Medications Current Medications Ondansetron HCl (Zofran Tab) 4 mg Q6H PRN PO NAUSEA AND/OR VOMITING; Start 08/06/17 at 12:00 Ondansetron HCl (Zofran Inj) 4 mg Q6H PRN IV NAUSEA AND/OR VOMITING; Start 08/06/17 at 12:00 Metoclopramide HCl (Reglan) 10 mg Q6H PRN IV NAUSEA AND/OR VOMITING; Start 08/06/17 at 12:00 Acetaminophen (Tylenol Liquid) 650 mg Q6H PRN PO PAIN LEVEL 1-3 OR FEVER; Start 08/06/17 at 12:00 Acetaminophen (Tylenol Tab) 650 mg Q6H PRN PO PAIN LEVEL 1-3 OR FEVER; Start 08/06/17 at 12:00 Acetaminophen/ Hydrocodone Bitart ([place] (5/325)) 1 tab Q6H PRN PO PAIN LEVEL 4 -6; Start 08/06/17 at 12:00 Docusate Sodium (Colace) 100 mg Q12H PRN PO CONSTIPATION; Start 08/06/17 at 12: 00 Magnesium Hydroxide (Milk Of Mag) 30 ml DAILY PRN PO CONSTIPATION; Start at 12:00 Bisacodyl (Dulcolax) 5 mg DAILY PRN PO CONSTIPATION; Start 08/06/17 at 12:00 Allopurinol (Zyloprim) 100 mg BID PO ; Start 08/06/17 at 21:00 Enalapril Maleate (Vasotec) 10 mg DAILY PO ; Start 08/07/17 at 09:00; Status Future Hold Ferrous Sulfate (Ferrous Sulfate (Ec)) 325 mg DAILY PO ; Start 08/07/17 at 09:00 Pantoprazole (Protonix Tab) 40 mg BID PO ; Start 08/06/17 at 21:00 Aspirin (Halfprin) 81 mg DAILY PO ; Start 08/07/17 at 09:00 Ticagrelor 90 mg 90 mg BID PO ; Start 08/06/17 at 21:00 Eptifibatide (Integrilin) 100 ml @ 1.5 mls/hr Q24H IV Last administered on 11:21; Admin Dose 1.5 MLS/HR; Start 08/06/17 at 11:36; Stop 08/06/17 at 23:35 Oxycodone/ Acetaminophen (Percocet (5/ 325)) 1 tab Q4H PRN PO REPORTED NON- CARDIAC PAIN 4-7; Start 08/06/17 at 12:00 Morphine Sulfate (morphine) 1 mg Q1H PRN IV PAIN NOT RELIEVED BY OTHERS; Start 08/06/17 at 12:00 Docusate Sodium (Colace) 100 mg BID PO ; Start 08/06/17 at 21:00 Atorvastatin Calcium 80 mg 80 mg DAILY@21 PO ; Start 08/06/17 at 21:00 Sodium Chloride (NS) 1,000 ml @ 100 mls/hr Q10H IV Last administered on 13:48; Admin Dose 100 MLS/HR; Start 08/06/17 at 11:36; Stop 08/06/17 at 21: 35 HAYDEN WAGNER MD Aug 06, 2017 16:43
[2017-08-06] MEDS: ATORVASTATIN 80 MG TAB PO SCH (21:02)
[2017-08-06] MEDS: ALLOPURINOL 100 MG TAB PO SCH (21:03)
[2017-08-06] MEDS: DOCUSATE SODIUM 100 MG CAP PO SCH (21:03)
[2017-08-06] MEDS: ACETAMINOPHEN 325 MG TAB PO PRN (21:03)
[2017-08-06] MEDS: PANTOPRAZOLE (EC) 40 MG TAB PO SCH (21:03)
[2017-08-06] MEDS: TICAGRELOR 90 MG TABLET PO SCH (21:12)
[2017-08-06] MEDS: DOPamine-D5W 1.6 MG/ML 250 ML IV SCH (22:21)
[2017-08-06 22:47] LABS: ADD UMIC YES; UR ASCORBIC ACID NEGATIVE (NEGATIVE); UR BILIRUBIN (Dip) NEGATIVE (NEGATIVE); UR BLOOD (Dip) NEGATIVE (NEGATIVE); UR CLARITY CLEAR (CLEAR); UR COLOR YELLOW (YELLOW); UR GLUCOSE (Dip) NEGATIVE (NEGATIVE); UR KETONES (Dip) TRACE mg/dL (NEGATIVE); UR LEUKOCYTE ESTERASE (Dip) NEGATIVE Leu/ul (NEGATIVE); UR MUCUS FEW /HPF (NONE SEEN); UR NITRITE (Dip) NEGATIVE (NEGATIVE); UR RBC 12 /HPF (0-5); UR SPECIFIC GRAVITY (Dip) > 1.060 (1.003-1.030); UR TOTAL PROTEIN (Dip) 2+ mg/dl (NEGATIVE); UR UROBILINOGEN (Dip) NEGATIVE (NEGATIVE)
[2017-08-07] VITALS (89 sets, daily range): BP systolic 54–154; BP diastolic 33–130; PULSE 82–121; RESP 17–47
[2017-08-07] MEDS: SOD CHLORIDE 0.9% 1,000 ML IV SCH ×3 (00:54→22:49)
[2017-08-07 05:10] LABS: BASOPHILS % 0.3 % (0.0-2.0); EOSINOPHILS # 0.1 10^3/ul (0.0-0.5); EOSINOPHILS % 0.6 % (0.0-7.0); HEMATOCRIT 29.3 % (42.0-52.0); HEMOGLOBIN 9.5 g/dl (14.0-18.0); LYMPHOCYTES # 1.5 10^3/ul (0.8-2.9); LYMPHOCYTES % 12.5 % (15.0-51.0); MEAN CORPUSCULAR HEMOGLOBIN 31.6 pg (29.0-33.0); MEAN CORPUSCULAR HGB CONC 32.4 g/dl (32.0-37.0); MEAN CORPUSCULAR VOLUME 97.3 fl (82.0-101.0); MEAN PLATELET VOLUME 9.4 fl (7.4-10.4); MONOCYTE # 1.2 10^3/ul (0.3-0.9); MONOCYTES % 9.9 % (0.0-11.0); NEUTROPHIL # 9.1 10^3/ul (1.6-7.5); NEUTROPHILS % 76.1 % (39.0-77.0); PLATELET COUNT 400 10^3/UL (140-415); RED BLOOD COUNT 3.01 10^6/ul (4.70-6.10); RED CELL DISTRIBUTION WIDTH 13.7 % (11.5-14.5); WHITE BLOOD COUNT 11.9 10^3/ul (4.8-10.8)
[2017-08-07 05:27] LABS: ALBUMIN 2.7 g/dl (3.3-4.9); ALBUMIN/GLOBULIN RATIO 0.87; BILIRUBIN,INDIRECT 2.1 mg/dl (0-1.1); BILIRUBIN,TOTAL 2.1 mg/dl (0.2-1.3); CALCIUM 8.1 mg/dl (8.4-10.2); CHOL/HDL RATIO 3.5 RATIO; CREATININE 1.24 mg/dl (0.61-1.24); POTASSIUM 4.2 mmol/L (3.5-5.1); TOTAL PROTEIN 5.8 g/dl (6.1-8.1)
[2017-08-07 05:32] LABS: INR 1.05; PROTIME 13.7 Sec (12.2-14.2); PT RATIO 1.1
[2017-08-07 05:56] LABS: THYROID STIMULATING HORMONE 1.8 MIU/L (0.465-4.680)
[2017-08-07 06:13] LABS: CALCIUM 8.1 mg/dl (8.4-10.2); CREATININE 1.21 mg/dl (0.61-1.24); POTASSIUM 4.6 mmol/L (3.5-5.1)
[2017-08-07 06:27] LABS: TROPONIN-I 46.5 ng/ml (0.00-0.12)
[2017-08-07] MEDS: FERROUS SULFATE (EC) 325 MG TAB PO SCH (08:41)
[2017-08-07] MEDS: ALLOPURINOL 100 MG TAB PO SCH ×2 (08:41→20:55)
[2017-08-07] MEDS: ASPIRIN (EC) 81 MG TAB PO SCH (08:41)
[2017-08-07] MEDS: DOCUSATE SODIUM 100 MG CAP PO SCH ×2 (08:41→20:55)
[2017-08-07] MEDS: PANTOPRAZOLE (EC) 40 MG TAB PO SCH ×2 (08:41→20:55)
[2017-08-07] MEDS: TICAGRELOR 90 MG TABLET PO SCH ×2 (08:57→21:00)
[2017-08-07] MEDS ORDERED: ENALAPRIL 10 MG TAB PO SCH (09:00)
[2017-08-07] MEDS: DOPamine-D5W 1.6 MG/ML 250 ML IV SCH ×2 (09:57→23:01)
--- NOTE | 2017-08-07 13:01 | PN ---
Date/Time of Note Date/Time of Note DATE: 08/07/17 TIME: 12:53 Assessment/Plan VTE Prophylaxis VTE Prophylaxis Intervention: SCD's Lines/Catheters IV Catheter Type (from Nrs): PICC Line Central line still needed: Yes Urinary Cath still in place: No Assessment/Plan Assessment/Plan 87 yo M without known hx of cardiopulmonary disease presented with weakness to clinic, found to have STEMI. Currently in cardiogenic shock from STEMI as evidence by need for dopamine drip to maintain MAPs. This was also the most likely etio of his hypotension on arrival PLAN dopamine drip as per cardiology bb/acei/statin/DAPT as per cardiology anderson cultured 11.3 for hypotension though suspect 2/2 STEMI. CXR without evidence of pna Pt states he completed the abx for his bacteremia cont home [facility] critical care time: 30 minutes Subjective 24 Hr Interval Summary Free Text/Dictation feels ok. states he completed his abx Exam/Review of Systems Vital Signs Vitals Vital Signs Date Time Temp Pulse Resp B/P Pulse Ox O2 Delivery O2 Flow Rate FiO2 08/07/17 10:30 86 21 115/59 98 08/07/17 10:00 Room Air 08/07/17 08:00 98.8 08/06/17 20:00 2.0 Intake and Output 08/06/17 08/06/17 08/07/17 15:00 23:00 07:00 Intake Total 185.75 ml 1114.75 ml 838.00 ml Output Total 500 ml 600 ml Balance 185.75 ml 614.75 ml 238.00 ml Exam nad no mrg lungs clear abd soft no rashes Results Result Diagram: 08/07/17 0420 08/07/17 0441 Results 24 hrs Laboratory Tests Test 08/06/17 15:00 08/06/17 18:00 08/06/17 22:27 08/07/17 04:20 White Blood Count 12.3 H 11.9 H Red Blood Count 3.25 L 3.01 L Hemoglobin 10.5 L 9.5 L Hematocrit 31.3 L 29.3 L Mean Corpuscular Volume 96.3 97.3 Mean Corpuscular Hemoglobin 32.3 31.6 Mean Corpuscular Hemoglobin Concent 33.5 32.4 Red Cell Distribution Width 13.7 13.7 Platelet Count 426 H 400 Mean Platelet Volume 8.9 9.4 Neutrophils % 73.4 76.1 Lymphocytes % 16.2 12.5 L Monocytes % 8.7 9.9 Eosinophils % 0.6 0.6 Basophils % 0.5 0.3 Nucleated Red Blood Cells % 0.0 0.0 Neutrophils # 9.0 H 9.1 H Lymphocytes # 2.0 1.5 Monocytes # 1.1 H 1.2 H Eosinophils # 0.1 0.1 Basophils # 0.1 0.0 Nucleated Red Blood Cells # 0.0 0.0 Sodium Level 136 136 Potassium Level 4.2 4.2 Chloride Level 108 111 H Carbon Dioxide Level 18 L 18 L Anion Gap 14 11 Blood Urea Nitrogen 24 H 23 H Creatinine 1.21 1.24 Glucose Level 120 106 Calcium Level 8.1 L 8.1 L Magnesium Level 1.1 L 1.0 L Troponin I 8.620 *H 58.000 *H Urine Color YELLOW Urine Clarity CLEAR Urine pH 5.[address] > 1.060 H Urine Ketones TRACE A Urine Nitrite NEGATIVE Urine Bilirubin NEGATIVE Urine Urobilinogen NEGATIVE Urine Leukocyte Esterase NEGATIVE Urine Microscopic RBC 12 H Urine Microscopic WBC 1 Urine Mucus FEW A Urine Hemoglobin NEGATIVE Urine Glucose NEGATIVE Urine Total Protein 2+ H Creatine Kinase 1215 H Creatine Kinase Index 9.3 Creatinine Kinase MB (Mass) 113.00 H Prothrombin Time 13.7 Prothrombin Time Ratio 1.1 INR International Normalized Ratio 1.05 Total Bilirubin 2.1 H Direct Bilirubin 0.00 Indirect Bilirubin 2.1 H Aspartate Amino Transf (AST/SGOT) 178 H Alanine Aminotransferase (ALT/SGPT) 53 Alkaline Phosphatase 78 Total Protein 5.8 L Albumin 2.7 L Globulin 3.10 Albumin/Globulin Ratio 0.87 Triglycerides Level 125 Cholesterol Level 136 LDL Cholesterol, Calculated 73 HDL Cholesterol 38 Cholesterol/HDL Ratio 3.5 Thyroid Stimulating Hormone (TSH) 1.800 Free Thyroxine 1.54 Test 08/07/17 04:41 Sodium Level 136 Potassium Level 4.6 Chloride Level 110 Carbon Dioxide Level 17 L Anion Gap 14 Blood Urea Nitrogen 22 H Creatinine 1.21 Glucose Level 103 Calcium Level 8.1 L Creatine Kinase 1221 H Creatine Kinase Index 8.6 Creatinine Kinase MB (Mass) 105.00 H Troponin I 46.500 *H Medications Medications Current Medications Ondansetron HCl (Zofran Tab) 4 mg Q6H PRN PO NAUSEA AND/OR VOMITING; Start 08/06/17 at 12:00 Ondansetron HCl (Zofran Inj) 4 mg Q6H PRN IV NAUSEA AND/OR VOMITING; Start 08/06/17 at 12:00 Metoclopramide HCl (Reglan) 10 mg Q6H PRN IV NAUSEA AND/OR VOMITING; Start 08/06/17 at 12:00 Acetaminophen (Tylenol Liquid) 650 mg Q6H PRN PO PAIN LEVEL 1-3 OR FEVER; Start 08/06/17 at 12:00 Acetaminophen (Tylenol Tab) 650 mg Q6H PRN PO PAIN LEVEL 1-3 OR FEVER Last administered on 08/06/17 21:03; Admin Dose 650 MG; Start 08/06/17 at 12:00 Acetaminophen/ Hydrocodone Bitart ([place] (5/325)) 1 tab Q6H PRN PO PAIN LEVEL 4 -6; Start 08/06/17 at 12:00 Docusate Sodium (Colace) 100 mg Q12H PRN PO CONSTIPATION; Start 08/06/17 at 12: 00 Magnesium Hydroxide (Milk Of Mag) 30 ml DAILY PRN PO CONSTIPATION; Start at 12:00 Bisacodyl (Dulcolax) 5 mg DAILY PRN PO CONSTIPATION; Start 08/06/17 at 12:00 Allopurinol (Zyloprim) 100 mg BID PO Last administered on 08/07/17 08:41; Admin Dose 100 MG; Start 08/06/17 at 21:00 Enalapril Maleate (Vasotec) 10 mg DAILY PO ; Start 08/07/17 at 09:00; Status Future Hold Ferrous Sulfate (Ferrous Sulfate (Ec)) 325 mg DAILY PO Last administered on 08:41; Admin Dose 325 MG; Start 08/07/17 at 09:00 Pantoprazole (Protonix Tab) 40 mg BID PO Last administered on 08/07/17 08:41; Admin Dose 40 MG; Start 08/06/17 at 21:00 Aspirin (Halfprin) 81 mg DAILY PO Last administered on 08/07/17 08:41; Admin Dose 81 MG; Start 08/07/17 at 09:00 Ticagrelor (Brilinta) 90 mg BID PO Last administered on 08/07/17 08:57; Admin Dose 90 MG; Start 08/06/17 at 21:00 Oxycodone/ Acetaminophen (Percocet (5/ 325)) 1 tab Q4H PRN PO REPORTED NON- CARDIAC PAIN 4-7; Start 08/06/17 at 12:00 Morphine Sulfate (morphine) 1 mg Q1H PRN IV PAIN NOT RELIEVED BY OTHERS; Start 08/06/17 at 12:00 Docusate Sodium (Colace) 100 mg BID PO Last administered on 08/07/17 08:41; Admin Dose 100 MG; Start 08/06/17 at 21:00 Atorvastatin Calcium 80 mg 80 mg DAILY@21 PO Last administered on 08/06/17 21: 02; Admin Dose 80 MG; Start 08/06/17 at 21:00 Dopamine HCl/ Dextrose 250 ml @ 3.75 mls/hr TITRATE IV Last administered on 09:57; Admin Dose 15 MLS/HR; Start 08/06/17 at 22:10 Sodium Chloride (NS) 1,000 ml @ 80 mls/hr [id number] IV Last administered on 08/07 11:23; Admin Dose 80 MLS/HR; Start 08/07/17 at 00:30 LORI MIRANDA MD Aug 07, 2017 13:01
--- NOTE | 2017-08-07 15:34 | PN ---
Date/Time of Note Date/Time of Note DATE: 08/07/17 TIME: 15:32 Assessment/Plan VTE Prophylaxis VTE Prophylaxis Intervention: SCD's Lines/Catheters IV Catheter Type (from Nrs): PICC Line Central line still needed: No Urinary Cath still in place: No Reason Cath still needed: urinary retention Assessment/Plan Assessment/Plan 1. Acute inferior STEMI 2/ S/P emergent thrombectomy/ PCI RCA (using [place]) 3. Cardiogenic shock 4. s/p recent bacteremia 5. dyslipidemia 6/ abnormal ECG due to above Rec: ASA Brilinta (prescription was given to daughter with coupon to get if filled now). integrillin for 12 hour and then stop ABX PER IM. Subjective 24 Hr Interval Summary Free Text/Dictation The patient with no change Exam/Review of Systems Vital Signs Vitals Vital Signs Date Time Temp Pulse Resp B/P Pulse Ox O2 Delivery O2 Flow Rate FiO2 08/07/17 14:15 94 28 97 08/07/17 14:00 113/83 Room Air 08/07/17 12:00 97.9 08/06/17 20:00 2.0 Intake and Output 08/06/17 08/06/17 08/07/17 15:00 23:00 07:00 Intake Total 185.75 ml 1114.75 ml 838.00 ml Output Total 500 ml 600 ml Balance 185.75 ml 614.75 ml 238.00 ml Results Result Diagram: 08/07/17 0420 08/07/17 0441 Results 24 hrs Laboratory Tests Test 08/06/17 18:00 08/06/17 22:27 08/07/17 04:20 08/07/17 04:41 Urine Color YELLOW Urine Clarity CLEAR Urine pH 5.0 Urine Specific [place] > 1.060 H Urine Ketones TRACE A Urine Nitrite NEGATIVE Urine Bilirubin NEGATIVE Urine Urobilinogen NEGATIVE Urine Leukocyte Esterase NEGATIVE Urine Microscopic RBC 12 H Urine Microscopic WBC 1 Urine Mucus FEW A Urine Hemoglobin NEGATIVE Urine Glucose NEGATIVE Urine Total Protein 2+ H Creatine Kinase 1215 H 1221 H Creatine Kinase Index 9.3 8.6 Creatinine Kinase MB (Mass) 113.00 H 105.00 H Troponin I 58.000 *H 46.500 *H White Blood Count 11.9 H Red Blood Count 3.01 L Hemoglobin 9.5 L Hematocrit 29.3 L Mean Corpuscular Volume 97.3 Mean Corpuscular Hemoglobin 31.6 Mean Corpuscular Hemoglobin Concent 32.4 Red Cell Distribution Width 13.7 Platelet Count 400 Mean Platelet Volume 9.4 Neutrophils % 76.1 Lymphocytes % 12.5 L Monocytes % 9.9 Eosinophils % 0.6 Basophils % 0.3 Nucleated Red Blood Cells % 0.0 Neutrophils # 9.1 H Lymphocytes # 1.5 Monocytes # 1.2 H Eosinophils # 0.1 Basophils # 0.0 Nucleated Red Blood Cells # 0.0 Prothrombin Time 13.7 Prothrombin Time Ratio 1.1 INR International Normalized Ratio 1.05 Sodium Level 136 136 Potassium Level 4.2 4.6 Chloride Level 111 H 110 Carbon Dioxide Level 18 L 17 L Anion Gap 11 14 Blood Urea Nitrogen 23 H 22 H Creatinine 1.24 1.21 Glucose Level 106 103 Calcium Level 8.1 L 8.1 L Magnesium Level 1.0 L Total Bilirubin 2.1 H Direct Bilirubin 0.00 Indirect Bilirubin 2.1 H Aspartate Amino Transf (AST/SGOT) 178 H Alanine Aminotransferase (ALT/SGPT) 53 Alkaline Phosphatase 78 Total Protein 5.8 L Albumin 2.7 L Globulin 3.10 Albumin/Globulin Ratio 0.87 Triglycerides Level 125 Cholesterol Level 136 LDL Cholesterol, Calculated 73 HDL Cholesterol 38 Cholesterol/HDL Ratio 3.5 Thyroid Stimulating Hormone (TSH) 1.800 Free Thyroxine 1.54 Medications Medications Current Medications Ondansetron HCl (Zofran Tab) 4 mg Q6H PRN PO NAUSEA AND/OR VOMITING; Start 08/06/17 at 12:00 Ondansetron HCl (Zofran Inj) 4 mg Q6H PRN IV NAUSEA AND/OR VOMITING; Start 08/06/17 at 12:00 Metoclopramide HCl (Reglan) 10 mg Q6H PRN IV NAUSEA AND/OR VOMITING; Start 08/06/17 at 12:00 Acetaminophen (Tylenol Liquid) 650 mg Q6H PRN PO PAIN LEVEL 1-3 OR FEVER; Start 08/06/17 at 12:00 Acetaminophen (Tylenol Tab) 650 mg Q6H PRN PO PAIN LEVEL 1-3 OR FEVER Last administered on 08/06/17t 21:03; Admin Dose 650 MG; Start 08/06/17 at 12:00 Acetaminophen/ Hydrocodone Bitart ([place] (5/325)) 1 tab Q6H PRN PO PAIN LEVEL 4 -6; Start 08/06/17 at 12:00 Docusate Sodium (Colace) 100 mg Q12H PRN PO CONSTIPATION; Start 08/06/17 at 12: 00 Magnesium Hydroxide (Milk Of Mag) 30 ml DAILY PRN PO CONSTIPATION; Start at 12:00 Bisacodyl (Dulcolax) 5 mg DAILY PRN PO CONSTIPATION; Start 08/06/17 at 12:00 Allopurinol (Zyloprim) 100 mg BID PO Last administered on 08/07/17 08:41; Admin Dose 100 MG; Start 08/06/17 at 21:00 Enalapril Maleate (Vasotec) 10 mg DAILY PO ; Start 08/07/17 at 09:00; Status Future Hold Ferrous Sulfate (Ferrous Sulfate (Ec)) 325 mg DAILY PO Last administered on 08:41; Admin Dose 325 MG; Start 08/07/17 at 09:00 Pantoprazole (Protonix Tab) 40 mg BID PO Last administered on 08/07/17 08:41; Admin Dose 40 MG; Start 08/06/17 at 21:00 Aspirin (Halfprin) 81 mg DAILY PO Last administered on 08/07/17 08:41; Admin Dose 81 MG; Start 08/07/17 at 09:00 Ticagrelor (Brilinta) 90 mg BID PO Last administered on 08/07/17 08:57; Admin Dose 90 MG; Start 08/06/17 at 21:00 Oxycodone/ Acetaminophen (Percocet (5/ 325)) 1 tab Q4H PRN PO REPORTED NON- CARDIAC PAIN 4-7; Start 08/06/17 at 12:00 Morphine Sulfate (morphine) 1 mg Q1H PRN IV PAIN NOT RELIEVED BY OTHERS; Start 08/06/17 at 12:00 Docusate Sodium (Colace) 100 mg BID PO Last administered on 08/07/17 08:41; Admin Dose 100 MG; Start 08/06/17 at 21:00 Atorvastatin Calcium 80 mg 80 mg DAILY@21 PO Last administered on 08/06/17 21: 02; Admin Dose 80 MG; Start 08/06/17 at 21:00 Dopamine HCl/ Dextrose 250 ml @ 3.75 mls/hr TITRATE IV Last administered on 09:57; Admin Dose 15 MLS/HR; Start 08/06/17 at 22:10 Sodium Chloride (NS) 1,000 ml @ 80 mls/hr [id number] IV Last administered on 08/07t 11:23; Admin Dose 80 MLS/HR; Start 08/07/17 at 00:30 BANDAR DO MD Aug 07, 2017 15:34
[2017-08-07] MEDS: ATORVASTATIN 80 MG TAB PO SCH (20:55)
[2017-08-08] VITALS (68 sets, daily range): BP systolic 73–143; BP diastolic 45–93; PULSE 83–115; RESP 16–36
[2017-08-08 07:25] LABS: BASOPHILS % 0.3 % (0.0-2.0); EOSINOPHILS # 0.4 10^3/ul (0.0-0.5); EOSINOPHILS % 4.3 % (0.0-7.0); HEMATOCRIT 25.9 % (42.0-52.0); HEMOGLOBIN 8.6 g/dl (14.0-18.0); LYMPHOCYTES # 1.3 10^3/ul (0.8-2.9); LYMPHOCYTES % 13.2 % (15.0-51.0); MEAN CORPUSCULAR HEMOGLOBIN 32.2 pg (29.0-33.0); MEAN CORPUSCULAR HGB CONC 33.2 g/dl (32.0-37.0); MEAN PLATELET VOLUME 9.5 fl (7.4-10.4); MONOCYTE # 0.8 10^3/ul (0.3-0.9); MONOCYTES % 8.5 % (0.0-11.0); NEUTROPHILS % 73.3 % (39.0-77.0); PLATELET COUNT 367 10^3/UL (140-415); RED BLOOD COUNT 2.67 10^6/ul (4.70-6.10); RED CELL DISTRIBUTION WIDTH 13.8 % (11.5-14.5); WHITE BLOOD COUNT 9.5 10^3/ul (4.8-10.8)
[2017-08-08 07:46] LABS: ALBUMIN 2.5 g/dl (3.3-4.9); ALBUMIN/GLOBULIN RATIO 0.86; BILIRUBIN,INDIRECT 1.9 mg/dl (0-1.1); BILIRUBIN,TOTAL 1.9 mg/dl (0.2-1.3); CALCIUM 7.9 mg/dl (8.4-10.2); CREATININE 1.26 mg/dl (0.61-1.24); MAGNESIUM 1.1 mg/dl (1.7-2.5); POTASSIUM 4.2 mmol/L (3.5-5.1); TOTAL PROTEIN 5.4 g/dl (6.1-8.1)
[2017-08-08] MEDS: DOCUSATE SODIUM 100 MG CAP PO SCH ×2 (09:12→20:30)
[2017-08-08] MEDS: ASPIRIN (EC) 81 MG TAB PO SCH (09:12)
[2017-08-08] MEDS: ALLOPURINOL 100 MG TAB PO SCH ×2 (09:12→20:31)
[2017-08-08] MEDS: PANTOPRAZOLE (EC) 40 MG TAB PO SCH ×2 (09:12→20:31)
[2017-08-08] MEDS: FERROUS SULFATE (EC) 325 MG TAB PO SCH (09:12)
[2017-08-08] MEDS: TICAGRELOR 90 MG TABLET PO SCH ×2 (09:14→21:14)
--- NOTE | 2017-08-08 12:48 | CONS ---
Date/Time of Note Date/Time of Note DATE: 08/08/17 TIME: 12:48 Assessment/Plan Assessment/Plan Additional Assessment/Plan 1. Acute inferior STEMI 2/ S/P emergent thrombectomy/ PCI RCA (using [place]) 3. Cardiogenic shock 4. s/p recent bacteremia 5. dyslipidemia 6/ abnormal ECG due to above Rec: ASA Brilinta (prescription was given to daughter with coupon to get if filled now). blood pressure remains borderline on dopamine ABX PER IM. Consultation Date/Type/Reason Admit Date/Time Aug 06, 2017 at 10:21 Initial Consult Date 08/06/17 Type of Consultation: interventional card Referring Provider: LAVON HUNTER MD 24 HR Interval Summary Free Text/Dictation alert comfortable Exam/Review of Systems Vital Signs Vitals Vital Signs Date Time Temp Pulse Resp B/P Pulse Ox O2 Delivery O2 Flow Rate FiO2 08/08/17 11:00 83 29 95/62 100 Room Air 08/08/17 08:00 97.7 08/06/17 20:00 2.0 Intake and Output 08/07/17 08/07/17 08/08/17 15:00 23:00 07:00 Intake Total 1030.00 ml 1200.00 ml 1163 ml Output Total 625 ml 600 ml 800 ml Balance 405.00 ml 600.00 ml 363 ml Results Result Diagram: 08/08/17 0659 08/08/17 0658 Results 24 hrs Laboratory Tests Test 08/08/17 06:58 08/08/17 06:59 Sodium Level 138 Potassium Level 4.2 Chloride Level 114 H Carbon Dioxide Level 18 L Anion Gap 10 Blood Urea Nitrogen 17 Creatinine 1.26 H Glucose Level 96 Calcium Level 7.9 L Magnesium Level 1.1 L Total Bilirubin 1.9 H Direct Bilirubin 0.00 Indirect Bilirubin 1.9 H Aspartate Amino Transf (AST/SGOT) 101 H Alanine Aminotransferase (ALT/SGPT) 41 Alkaline Phosphatase 69 Total Protein 5.4 L Albumin 2.5 L Globulin 2.90 Albumin/Globulin Ratio 0.86 White Blood Count 9.5 # Red Blood Count 2.67 L Hemoglobin 8.6 L Hematocrit 25.9 L Mean Corpuscular Volume 97.0 Mean Corpuscular Hemoglobin 32.2 Mean Corpuscular Hemoglobin Concent 33.2 Red Cell Distribution Width 13.8 Platelet Count 367 Mean Platelet Volume 9.5 Neutrophils % 73.3 Lymphocytes % 13.2 L Monocytes % 8.5 Eosinophils % 4.3 Basophils % 0.3 Nucleated Red Blood Cells % 0.0 Neutrophils # 7.0 Lymphocytes # 1.3 Monocytes # 0.8 Eosinophils # 0.4 Basophils # 0.0 Nucleated Red Blood Cells # 0.0 Medications Medications Current Medications Ondansetron HCl (Zofran Tab) 4 mg Q6H PRN PO NAUSEA AND/OR VOMITING; Start 08/06/17 at 12:00 Ondansetron HCl (Zofran Inj) 4 mg Q6H PRN IV NAUSEA AND/OR VOMITING; Start 08/06/17 at 12:00 Metoclopramide HCl (Reglan) 10 mg Q6H PRN IV NAUSEA AND/OR VOMITING; Start 08/06/17 at 12:00 Acetaminophen (Tylenol Liquid) 650 mg Q6H PRN PO PAIN LEVEL 1-3 OR FEVER; Start 08/06/17 at 12:00 Acetaminophen (Tylenol Tab) 650 mg Q6H PRN PO PAIN LEVEL 1-3 OR FEVER Last administered on 08/06/17 21:03; Admin Dose 650 MG; Start 08/06/17 at 12:00 Acetaminophen/ Hydrocodone Bitart ([place] (5/325)) 1 tab Q6H PRN PO PAIN LEVEL 4 -6; Start 08/06/17 at 12:00 Docusate Sodium (Colace) 100 mg Q12H PRN PO CONSTIPATION; Start 08/06/17 at 12: 00 Magnesium Hydroxide (Milk Of Mag) 30 ml DAILY PRN PO CONSTIPATION; Start at 12:00 Bisacodyl (Dulcolax) 5 mg DAILY PRN PO CONSTIPATION; Start 08/06/17 at 12:00 Allopurinol (Zyloprim) 100 mg BID PO Last administered on 08/08/17 09:12; Admin Dose 100 MG; Start 08/06/17 at 21:00 Enalapril Maleate (Vasotec) 10 mg DAILY PO ; Start 08/07/17 at 09:00; Status Future Hold Ferrous Sulfate (Ferrous Sulfate (Ec)) 325 mg DAILY PO Last administered on 09:12; Admin Dose 325 MG; Start 08/07/17 at 09:00 Pantoprazole (Protonix Tab) 40 mg BID PO Last administered on 08/08/17 09:12; Admin Dose 40 MG; Start 08/06/17 at 21:00 Aspirin (Halfprin) 81 mg DAILY PO Last administered on 08/08/17 09:12; Admin Dose 81 MG; Start 08/07/17 at 09:00 Ticagrelor (Brilinta) 90 mg BID PO Last administered on 08/08/17 09:14; Admin Dose 90 MG; Start 08/06/17 at 21:00 Oxycodone/ Acetaminophen (Percocet (5/ 325)) 1 tab Q4H PRN PO REPORTED NON- CARDIAC PAIN 4-7; Start 08/06/17 at 12:00 Morphine Sulfate (morphine) 1 mg Q1H PRN IV PAIN NOT RELIEVED BY OTHERS; Start 08/06/17 at 12:00 Docusate Sodium (Colace) 100 mg BID PO Last administered on 08/08/17 09:12; Admin Dose 100 MG; Start 08/06/17 at 21:00 Atorvastatin Calcium 80 mg 80 mg DAILY@21 PO Last administered on 08/07/17 20: 55; Admin Dose 80 MG; Start 08/06/17 at 21:00 Dopamine HCl/ Dextrose 250 ml @ 3.75 mls/hr TITRATE IV Last administered on 23:01; Admin Dose 18.75 MLS/HR; Start 08/06/17 at 22:10 Sodium Chloride (NS) 1,000 ml @ 80 mls/hr [id number] IV Last administered on 08/07 22:49; Admin Dose 80 MLS/HR; Start 08/07/17 at 00:30 SANDRA STEWART MD Aug 08, 2017 12:48
[2017-08-08] MEDS: SOD CHLORIDE 0.9% 1,000 ML IV SCH (15:06)
--- NOTE | 2017-08-08 16:20 | PN ---
Date/Time of Note Date/Time of Note DATE: 08/08/17 TIME: 16:13 Assessment/Plan VTE Prophylaxis VTE Prophylaxis Intervention: SCD's Lines/Catheters IV Catheter Type (from Nrsg): PICC Line Central line still needed: Yes Urinary Cath still in place: No Assessment/Plan Assessment/Plan 87 yo M without known hx of cardiopulmonary disease presented with weakness to clinic, found to have STEMI. Currently in cardiogenic shock from STEMI as evidence by need for dopamine drip to maintain MAPs. This was also the most likely etio of his hypotension on arrival PLAN wean dopamine bb/acei/statin/DAPT as per cardiology anderson cultured 11.3 for hypotension though suspect 2/2 STEMI. CXR without evidence of pna cont home gout meds critical care time: 30 minutes anticipate xfer to tele in AM Subjective 24 Hr Interval Summary Free Text/Dictation dopamine being weaned Exam/Review of Systems Vital Signs Vitals Vital Signs Date Time Temp Pulse Resp B/P Pulse Ox O2 Delivery O2 Flow Rate FiO2 08/08/17 15:00 97 36 98 08/08/17 14:45 98/80 Room Air 08/08/17 08:00 97.7 08/06/17 20:00 2.0 Intake and Output 08/07/17 08/07/17 08/08/17 15:00 23:00 07:00 Intake Total 1030.00 ml 1200.00 ml 1163 ml Output Total 625 ml 600 ml 800 ml Balance 405.00 ml 600.00 ml 363 ml Exam nad, vigorously eating breakfast no mrg lungs clear abd soft no rashes Results Result Diagram: 08/08/17 0659 08/08/17 0658 Results 24 hrs Laboratory Tests Test 08/08/17 06:58 08/08/17 06:59 Sodium Level 138 Potassium Level 4.2 Chloride Level 114 H Carbon Dioxide Level 18 L Anion Gap 10 Blood Urea Nitrogen 17 Creatinine 1.26 H Glucose Level 96 Calcium Level 7.9 L Magnesium Level 1.1 L Total Bilirubin 1.9 H Direct Bilirubin 0.00 Indirect Bilirubin 1.9 H Aspartate Amino Transf (AST/SGOT) 101 H Alanine Aminotransferase (ALT/SGPT) 41 Alkaline Phosphatase 69 Total Protein 5.4 L Albumin 2.5 L Globulin 2.90 Albumin/Globulin Ratio 0.86 White Blood Count 9.5 # Red Blood Count 2.67 L Hemoglobin 8.6 L Hematocrit 25.9 L Mean Corpuscular Volume 97.0 Mean Corpuscular Hemoglobin 32.2 Mean Corpuscular Hemoglobin Concent 33.2 Red Cell Distribution Width 13.8 Platelet Count 367 Mean Platelet Volume 9.5 Neutrophils % 73.3 Lymphocytes % 13.2 L Monocytes % 8.5 Eosinophils % 4.3 Basophils % 0.3 Nucleated Red Blood Cells % 0.0 Neutrophils # 7.0 Lymphocytes # 1.3 Monocytes # 0.8 Eosinophils # 0.4 Basophils # 0.0 Nucleated Red Blood Cells # 0.0 Medications Medications Current Medications Ondansetron HCl (Zofran Tab) 4 mg Q6H PRN PO NAUSEA AND/OR VOMITING; Start 08/06/17 at 12:00 Ondansetron HCl (Zofran Inj) 4 mg Q6H PRN IV NAUSEA AND/OR VOMITING; Start 08/06/17 at 12:00 Metoclopramide HCl (Reglan) 10 mg Q6H PRN IV NAUSEA AND/OR VOMITING; Start 08/06/17 at 12:00 Acetaminophen (Tylenol Liquid) 650 mg Q6H PRN PO PAIN LEVEL 1-3 OR FEVER; Start 08/06/17 at 12:00 Acetaminophen (Tylenol Tab) 650 mg Q6H PRN PO PAIN LEVEL 1-3 OR FEVER Last administered on 08/06/17 21:03; Admin Dose 650 MG; Start 08/06/17 at 12:00 Acetaminophen/ Hydrocodone Bitart ([place] (5/325)) 1 tab Q6H PRN PO PAIN LEVEL 4 -6; Start 08/06/17 at 12:00 Docusate Sodium (Colace) 100 mg Q12H PRN PO CONSTIPATION; Start 08/06/17 at 12: 00 Magnesium Hydroxide (Milk Of Mag) 30 ml DAILY PRN PO CONSTIPATION; Start at 12:00 Bisacodyl (Dulcolax) 5 mg DAILY PRN PO CONSTIPATION; Start 08/06/17 at 12:00 Allopurinol (Zyloprim) 100 mg BID PO Last administered on 08/08/17 09:12; Admin Dose 100 MG; Start 08/06/17 at 21:00 Enalapril Maleate (Vasotec) 10 mg DAILY PO ; Start 08/07/17 at 09:00; Status Future Hold Ferrous Sulfate (Ferrous Sulfate (Ec)) 325 mg DAILY PO Last administered on 09:12; Admin Dose 325 MG; Start 08/07/17 at 09:00 Pantoprazole (Protonix Tab) 40 mg BID PO Last administered on 08/08/17 09:12; Admin Dose 40 MG; Start 08/06/17 at 21:00 Aspirin (Halfprin) 81 mg DAILY PO Last administered on 08/08/17 09:12; Admin Dose 81 MG; Start 08/07/17 at 09:00 Ticagrelor (Brilinta) 90 mg BID PO Last administered on 08/08/17 09:14; Admin Dose 90 MG; Start 08/06/17 at 21:00 Oxycodone/ Acetaminophen (Percocet (5/ 325)) 1 tab Q4H PRN PO REPORTED NON- CARDIAC PAIN 4-7; Start 08/06/17 at 12:00 Morphine Sulfate (morphine) 1 mg Q1H PRN IV PAIN NOT RELIEVED BY OTHERS; Start 08/06/17 at 12:00 Docusate Sodium (Colace) 100 mg BID PO Last administered on 08/08/17 09:12; Admin Dose 100 MG; Start 08/06/17 at 21:00 Atorvastatin Calcium 80 mg 80 mg DAILY@21 PO Last administered on 08/07/17 20: 55; Admin Dose 80 MG; Start 08/06/17 at 21:00 Dopamine HCl/ Dextrose 250 ml @ 3.75 mls/hr TITRATE IV Last administered on 23:01; Admin Dose 18.75 MLS/HR; Start 08/06/17 at 22:10 Sodium Chloride (NS) 1,000 ml @ 80 mls/hr [id number] IV Last administered on 08/08 15:06; Admin Dose 80 MLS/HR; Start 08/07/17 at 00:30 LORI MIRANDA MD Aug 08, 2017 16:20
[2017-08-08] MEDS: ATORVASTATIN 80 MG TAB PO SCH (20:31)
[2017-08-08] MEDS ORDERED: LEVALBUTEROL (NEB) 0.63 MG/3 ML AMP ONE (21:08)
[2017-08-08] MEDS: LEVALBUTEROL (NEB) 0.63 MG/3 ML AMP HHN PRN (21:14)
[2017-08-09] VITALS (36 sets, daily range): BP systolic 100–149; BP diastolic 61–97; PULSE 85–120; RESP 17–30
--- NOTE | 2017-08-09 00:12 | RADRPT ---
PROCEDURE: Chest. CLINICAL INDICATION: Chest pain. TECHNIQUE: Single frontal view of the chest was obtained. COMPARISON: 08/06/2017. FINDINGS: There is a left-sided PICC line extending to the SVC/RA junction. The cardiac silhouette is magnifie d. The aortic arch is calcified. There is mild left basilar atelectasis. There is a calcified granu nick within the right upper lobe. There is no pneumothorax. IMPRESSION: Mild left basilar atelectasis. Aortic atherosclerosis. Right upper lobe calcified granuloma. Left-sided PICC line in place. .Pedro Luis Mehta MD, MD Date Time Electronically viewed and signed by .Pedro Luis Mehta MD, MD on 08/09/2017 00:12 .T/
[2017-08-09] MEDS: SOD CHLORIDE 0.9% 1,000 ML IV SCH (00:59)
[2017-08-09] MEDS: LEVALBUTEROL (NEB) 0.63 MG/3 ML AMP HHN PRN ×2 (03:41→12:31)
[2017-08-09] MEDS ORDERED: FUROSEMIDE 20 MG INJ IV ONE (04:00)
[2017-08-09] MEDS: PANTOPRAZOLE (EC) 40 MG TAB PO SCH ×2 (09:02→21:00)
[2017-08-09] MEDS: ASPIRIN (EC) 81 MG TAB PO SCH (09:02)
[2017-08-09] MEDS: ALLOPURINOL 100 MG TAB PO SCH (09:03)
[2017-08-09] MEDS: DOCUSATE SODIUM 100 MG CAP PO SCH ×2 (09:03→21:00)
[2017-08-09] MEDS: FERROUS SULFATE (EC) 325 MG TAB PO SCH (09:03)
[2017-08-09] MEDS: TICAGRELOR 90 MG TABLET PO SCH ×2 (09:05→21:00)
[2017-08-09] MEDS ORDERED: MAGNESIUM SULFATE 2 GM/50 ML 50 ML IVPB ONE ×2 (10:00→12:00)
--- NOTE | 2017-08-09 10:11 | PN ---
Date/Time of Note Date/Time of Note DATE: 08/09/17 TIME: 10:03 Assessment/Plan VTE Prophylaxis VTE Prophylaxis Intervention: SCD's Lines/Catheters [facility] Mid Line Urinary Cath still in place: No Assessment/Plan Chief Complaint/Hosp Course Assessment/Plan: 87 yo M without known hx of cardiopulmonary disease presented with weakness to clinic, found with acute inferior STEMI, S/P emergent thrombectomy/ PCI RCA (using FEDERICO) with subsequent cardiogenic shock requiring dopamine drip to maintain MAPs, now resolving, off pressors presently. 1. Acute inferior STEMI - S/P emergent thrombectomy/ PCI RCA (using FEDERICO) -Continue current cardiac medications, aspirin, Brilinta, Lipitor, follow-up cardiology recommendations 2. Cardiogenic shock -anderson cultured 11.3 for hypotension though suspect 2/2 STEMI , status post treatment with dopamine, now blood pressure stable off pressors - monitor for now 3. s/p recent bacteremia -white count normal, blood cultures this admission negative for growth, CXR without evidence of pna - monitor 4. dyslipidemia - on Lipitor 5. gout: cont home gout meds 6. Low magnesium: Replete, follow-up lab levels today and in the morning critical care time today: 40 minutes Problems: Subjective 24 Hr Interval Summary Free Text/Dictation Patient had some wheezing last night, relieved with Xopenex treatment. Seen by cardiology team yesterday. Tolerating diet, no chest pain or nausea vomiting presently. Exam/Review of Systems Vital Signs Vitals Vital Signs Date Time Temp Pulse Resp B/P Pulse Ox O2 Delivery O2 Flow Rate FiO2 08/09/17 09:00 109 17 129/77 100 Nasal Cannula 08/09/17 08:00 98.6 08/09/17 08:00 2.0 08/08/17 21:15 21 Intake and Output 08/08/17 08/08/17 08/09/17 15:00 23:00 07:00 Intake Total 1059.9825 ml 550 ml 1150 ml Output Total 150 ml 375 ml 1200 ml Balance 909.9825 ml 175 ml -50 ml Exam nad, alert Pupils equal round reactive to light, extra ocular muscles intact Neck supple no mrg lungs slight positive wheezes bilaterally abd soft Results Result Diagram: 08/08/17 0659 08/08/17 0658 Results 24 hrs Laboratory Tests Test 08/09/17 06:08 B-Type Natriuretic Peptide 35478 H Medications Medications Current Medications Ondansetron HCl (Zofran Tab) 4 mg Q6H PRN PO NAUSEA AND/OR VOMITING; Start 08/06/17 at 12:00 Ondansetron HCl (Zofran Inj) 4 mg Q6H PRN IV NAUSEA AND/OR VOMITING; Start 08/06/17 at 12:00 Metoclopramide HCl (Reglan) 10 mg Q6H PRN IV NAUSEA AND/OR VOMITING; Start 08/06/17 at 12:00 Acetaminophen (Tylenol Liquid) 650 mg Q6H PRN PO PAIN LEVEL 1-3 OR FEVER; Start 08/06/17 at 12:00 Acetaminophen (Tylenol Tab) 650 mg Q6H PRN PO PAIN LEVEL 1-3 OR FEVER Last administered on 08/06/17 21:03; Admin Dose 650 MG; Start 08/06/17 at 12:00 Acetaminophen/ Hydrocodone Bitart ([place] (5/325)) 1 tab Q6H PRN PO PAIN LEVEL 4 -6; Start 08/06/17 at 12:00 Docusate Sodium (Colace) 100 mg Q12H PRN PO CONSTIPATION; Start 08/06/17 at 12: 00 Magnesium Hydroxide (Milk Of Mag) 30 ml DAILY PRN PO CONSTIPATION; Start at 12:00 Bisacodyl (Dulcolax) 5 mg DAILY PRN PO CONSTIPATION; Start 08/06/17 at 12:00 Allopurinol (Zyloprim) 100 mg BID PO Last administered on 08/09/17 09:03; Admin Dose 100 MG; Start 08/06/17 at 21:00 Enalapril Maleate (Vasotec) 10 mg DAILY PO ; Start 08/07/17 at 09:00; Status Future Hold Ferrous Sulfate (Ferrous Sulfate (Ec)) 325 mg DAILY PO Last administered on 09:03; Admin Dose 325 MG; Start 08/07/17 at 09:00 Pantoprazole (Protonix Tab) 40 mg BID PO Last administered on 08/09/17 09:02; Admin Dose 40 MG; Start 08/06/17 at 21:00 Aspirin (Halfprin) 81 mg DAILY PO Last administered on 08/09/17 09:02; Admin Dose 81 MG; Start 08/07/17 at 09:00 Ticagrelor (Brilinta) 90 mg BID PO Last administered on 08/09/17 09:05; Admin Dose 90 MG; Start 08/06/17 at 21:00 Oxycodone/ Acetaminophen (Percocet (5/ 325)) 1 tab Q4H PRN PO REPORTED NON- CARDIAC PAIN 4-7; Start 08/06/17 at 12:00 Morphine Sulfate (morphine) 1 mg Q1H PRN IV PAIN NOT RELIEVED BY OTHERS Last administered on 08/09/17 04:43; Admin Dose 1 MG; Start 08/06/17 at 12:00 Docusate Sodium (Colace) 100 mg BID PO Last administered on 08/09/17 09:03; Admin Dose 100 MG; Start 08/06/17 at 21:00 Atorvastatin Calcium 80 mg 80 mg DAILY@21 PO Last administered on 08/08/17 20: 31; Admin Dose 80 MG; Start 08/06/17 at 21:00 Dopamine HCl/ Dextrose 250 ml @ 3.75 mls/hr TITRATE IV Last administered on 23:01; Admin Dose 18.75 MLS/HR; Start 08/06/17 at 22:10 Sodium Chloride 1,000 ml @ 80 mls/hr [id number] IV Last administered on 00:59; Admin Dose 80 MLS/HR; Start 08/07/17 at 00:30 Magnesium Sulfate (Magnesium Sulfate 2 Gm/50 ml) 50 ml @ 25 mls/hr ONCE ONCE IVPB ; Start 08/09/17 at 10:00; Stop 08/09/17 at 11:59; Status UNV Procedures Procedures 2D ECHO (08/06): Conclusions 1. Lower limits of normal systolic function. Normal left ventricular cavity size. Mild concentric left ventricular hypertrophy. Ejection fraction is visually estimated at 50 %. Tissue Doppler/Mitral Doppler indices are consistent with impaired relaxation (Stage I diastolic dysfunction). These segments of the LV are hypokinetic inferior mid segment and inferior apex segment. 2. Normal appearance of the mitral valve. Mild mitral annular calcification. Trace mitral regurgitation. 3. No significant aortic stenosis or insufficiency. Aortic cusps appear mildly calcified. 4. Normal appearance of the tricuspid valve. Unable to obtain RVSP due to minimal presence of tricuspid regurgitation. RAMINA BISHOP Aug 09, 2017 10:11
[2017-08-09 10:55] LABS: BASOPHIL # 0.1 10^3/ul (0.0-0.1); BASOPHILS % 0.5 % (0.0-2.0); EOSINOPHILS # 0.2 10^3/ul (0.0-0.5); HEMATOCRIT 23.5 % (42.0-52.0); HEMOGLOBIN 7.7 g/dl (14.0-18.0); LYMPHOCYTES # 1.4 10^3/ul (0.8-2.9); LYMPHOCYTES % 14.5 % (15.0-51.0); MEAN CORPUSCULAR HGB CONC 32.8 g/dl (32.0-37.0); MEAN CORPUSCULAR VOLUME 97.5 fl (82.0-101.0); MEAN PLATELET VOLUME 9.9 fl (7.4-10.4); MONOCYTE # 1.1 10^3/ul (0.3-0.9); MONOCYTES % 10.9 % (0.0-11.0); NEUTROPHIL # 6.9 10^3/ul (1.6-7.5); NEUTROPHILS % 71.5 % (39.0-77.0); PLATELET COUNT 309 10^3/UL (140-415); RED BLOOD COUNT 2.41 10^6/ul (4.70-6.10); RED CELL DISTRIBUTION WIDTH 13.9 % (11.5-14.5); WHITE BLOOD COUNT 9.6 10^3/ul (4.8-10.8)
[2017-08-09 11:19] LABS: ALBUMIN 2.6 g/dl (3.3-4.9); ALBUMIN/GLOBULIN RATIO 0.86; BILIRUBIN,INDIRECT 0.9 mg/dl (0-1.1); BILIRUBIN,TOTAL 0.9 mg/dl (0.2-1.3); CALCIUM 7.7 mg/dl (8.4-10.2); CREATININE 1.43 mg/dl (0.61-1.24); PHOSPHORUS 3.9 mg/dl (2.5-4.9); POTASSIUM 4.1 mmol/L (3.5-5.1); TOTAL PROTEIN 5.6 g/dl (6.1-8.1)
[2017-08-09 11:23] LABS: MAGNESIUM 0.9 mg/dl (1.7-2.5)
[2017-08-09] MEDS ORDERED: SOD CHLORIDE 0.9% 250 ML IV* ONE (11:50)
--- NOTE | 2017-08-09 14:02 | CONS ---
Date/Time of Note Date/Time of Note DATE: 08/09/17 TIME: 13:56 Consult Date/Type/Reason Admit Date/Time Aug 06, 2017 at 10:21 Initial Consult Date 08/06/17 Type of Consultation: interventional card Ordering Provider: LAVON HUNTER MD Subjective cardiology follow up note/ critical care note: S: D/ W staff and rhythm was reviewed. pt remains in NSR/ sinus tachycardia he is off of levophed/ dopamine now. he has had increasing sob last night and received lasix iv he denies any cp or pressure to me but has sob. no bleeding is reported. no groin pain O: General: no acute distress HEENT: NC/AT. pupils are equal. round. NECK: NO JVD. no stridor. CV: RRR. systolic murmur; no gallop or rubs. PULM: no wheezing or rhonchi. GI: SOFT, NT, ND, no rebound or guarding Extremity: trace B/L LE edema. no clubbing. neuro: awake and alert, OX2. Psych: calm and pleasant rectal: deferred : normal male vascular R fem sheath removed now with no hematoma or bleeding but + echymosis. ECG NSR marked inf ST elevation c/w acute inferior STEMI Echo reviewed personally: 1. Lower limits of normal systolic function. Normal left ventricular cavity size. Mild concentric left ventricular hypertrophy. Ejection fraction is visually estimated at 50 %. Tissue Doppler/Mitral Doppler indices are consistent with impaired relaxation (Stage I diastolic dysfunction). These segments of the LV are hypokinetic inferior mid segment and inferior apex segment. 2. Normal appearance of the mitral valve. Mild mitral annular calcification. Trace mitral regurgitation. 3. No significant aortic stenosis or insufficiency. Aortic cusps appear mildly calcified. 4. Normal appearance of the tricuspid valve. Unable to obtain RVSP due to minimal presence of tricuspid regurgitation. CXR reviewed. Objective Vital Signs Date Time Temp Pulse Resp B/P Pulse Ox O2 Delivery O2 Flow Rate FiO2 08/09/17 12:32 100 1.0 08/09/17 12:32 95 32 Nasal Cannula 08/09/17 12:00 98.6 108/65 08/08/17 21:15 21 Intake and Output 08/08/17 08/08/17 08/09/17 15:00 23:00 07:00 Intake Total 1059.9825 ml 550 ml 1150 ml Output Total 150 ml 375 ml 1475 ml Balance 909.9825 ml 175 ml -325 ml Results/Medications Result Diagram: 08/09/17 1015 08/09/17 1015 Results 24 hrs Laboratory Tests Test 08/09/17 06:08 08/09/17 10:15 B-Type Natriuretic Peptide 01529 H White Blood Count 9.6 Red Blood Count 2.41 L Hemoglobin 7.7 L Hematocrit 23.5 L Mean Corpuscular Volume 97.5 Mean Corpuscular Hemoglobin 32.0 Mean Corpuscular Hemoglobin Concent 32.8 Red Cell Distribution Width 13.9 Platelet Count 309 Mean Platelet Volume 9.9 Neutrophils % 71.5 Lymphocytes % 14.5 L Monocytes % 10.9 Eosinophils % 2.0 Basophils % 0.5 Nucleated Red Blood Cells % 0.0 Neutrophils # 6.9 Lymphocytes # 1.4 Monocytes # 1.1 H Eosinophils # 0.2 Basophils # 0.1 Nucleated Red Blood Cells # 0.0 Sodium Level 135 Potassium Level 4.1 Chloride Level 110 Carbon Dioxide Level 18 L Anion Gap 11 Blood Urea Nitrogen 18 Creatinine 1.43 H Glucose Level 92 Calcium Level 7.7 L Phosphorus Level 3.9 Magnesium Level 0.9 *L Total Bilirubin 0.9 Direct Bilirubin 0.00 Indirect Bilirubin 0.9 Aspartate Amino Transf (AST/SGOT) 65 H Alanine Aminotransferase (ALT/SGPT) 44 Alkaline Phosphatase 65 Total Protein 5.6 L Albumin 2.6 L Globulin 3.00 Albumin/Globulin Ratio 0.86 Medications Current Medications Ondansetron HCl (Zofran Tab) 4 mg Q6H PRN PO NAUSEA AND/OR VOMITING; Start 08/06/17 at 12:00 Ondansetron HCl (Zofran Inj) 4 mg Q6H PRN IV NAUSEA AND/OR VOMITING; Start 08/06/17 at 12:00 Metoclopramide HCl (Reglan) 10 mg Q6H PRN IV NAUSEA AND/OR VOMITING; Start 08/06/17 at 12:00 Acetaminophen (Tylenol Liquid) 650 mg Q6H PRN PO PAIN LEVEL 1-3 OR FEVER; Start 08/06/17 at 12:00 Acetaminophen (Tylenol Tab) 650 mg Q6H PRN PO PAIN LEVEL 1-3 OR FEVER Last administered on 08/06/17t 21:03; Admin Dose 650 MG; Start 08/06/17 at 12:00 Acetaminophen/ Hydrocodone Bitart ([place] (5/325)) 1 tab Q6H PRN PO PAIN LEVEL 4 -6; Start 08/06/17 at 12:00 Docusate Sodium (Colace) 100 mg Q12H PRN PO CONSTIPATION; Start 08/06/17 at 12: 00 Magnesium Hydroxide (Milk Of Mag) 30 ml DAILY PRN PO CONSTIPATION; Start at 12:00 Bisacodyl (Dulcolax) 5 mg DAILY PRN PO CONSTIPATION; Start 08/06/17 at 12:00 Allopurinol (Zyloprim) 100 mg BID PO Last administered on 08/09/17 09:03; Admin Dose 100 MG; Start 08/06/17 at 21:00; Status Future Hold Enalapril Maleate (Vasotec) 10 mg DAILY PO ; Start 08/07/17 at 09:00; Status Future Hold Ferrous Sulfate (Ferrous Sulfate (Ec)) 325 mg DAILY PO Last administered on 09:03; Admin Dose 325 MG; Start 08/07/17 at 09:00 Pantoprazole (Protonix Tab) 40 mg BID PO Last administered on 08/09/17 09:02; Admin Dose 40 MG; Start 08/06/17 at 21:00 Aspirin (Halfprin) 81 mg DAILY PO Last administered on 08/09/17 09:02; Admin Dose 81 MG; Start 08/07/17 at 09:00 Ticagrelor (Brilinta) 90 mg BID PO Last administered on 08/09/17 09:05; Admin Dose 90 MG; Start 08/06/17 at 21:00 Oxycodone/ Acetaminophen (Percocet (5/ 325)) 1 tab Q4H PRN PO REPORTED NON- CARDIAC PAIN 4-7; Start 08/06/17 at 12:00 Morphine Sulfate (morphine) 1 mg Q1H PRN IV PAIN NOT RELIEVED BY OTHERS Last administered on 08/09/17 04:43; Admin Dose 1 MG; Start 08/06/17 at 12:00 Docusate Sodium (Colace) 100 mg BID PO Last administered on 08/09/17 09:03; Admin Dose 100 MG; Start 08/06/17 at 21:00 Atorvastatin Calcium 80 mg 80 mg DAILY@21 PO Last administered on 08/08/17 20: 31; Admin Dose 80 MG; Start 08/06/17 at 21:00 Dopamine HCl/ Dextrose 250 ml @ 3.75 mls/hr TITRATE IV Last administered on 23:01; Admin Dose 18.75 MLS/HR; Start 08/06/17 at 22:10 Sodium Chloride 1,000 ml @ 80 mls/hr [id number] IV Last administered on 00:59; Admin Dose 80 MLS/HR; Start 08/07/17 at 00:30 Magnesium Sulfate (Magnesium Sulfate 2 Gm/50 ml) 50 ml @ 25 mls/hr ONCE ONCE IVPB Last administered on 08/09/17 12:59; Admin Dose 25 MLS/HR; Start at 12:00; Stop 08/09/17 at 13:59 Assessment/Plan Chief Complaint/Hosp Course 1. Acute inferior STEMI 2/ S/P emergent thrombectomy/ PCI RCA (using FEDERICO) 3. Cardiogenic shock: BP has improved now 4. s/p recent bacteremia 5. dyslipidemia 6/ abnormal ECG due to above \7. severe and worsening anemia 8/ MARCOS 9. Hypo Mg. Rec: cont ASA and Brilinta. completed integrillin post PCI ICU care ABX PER IM. statin will check iron study and stool guiac to r/o active GI bleed consider transfusion prn replace Mg will try low dose coreg More than 36 minutes of critical care time was spent in management and treatment of this critically ill patient excluding any procedures. Thank you for his referral. I will continue to follow along with you. HAYDEN WAGNER MD [facility] Problems: HAYDEN WAGNER MD Aug 09, 2017 14:02
[2017-08-09] MEDS: ATORVASTATIN 80 MG TAB PO SCH (21:00)
[2017-08-10] VITALS (26 sets, daily range): BP systolic 85–147; BP diastolic 48–91; PULSE 65–107; RESP 17–31
[2017-08-10] MEDS: LEVALBUTEROL (NEB) 0.63 MG/3 ML AMP HHN PRN ×2 (05:01→08:09)
[2017-08-10 05:53] LABS: BASOPHILS % 0.4 % (0.0-2.0); EOSINOPHILS # 0.3 10^3/ul (0.0-0.5); EOSINOPHILS % 3.7 % (0.0-7.0); HEMATOCRIT 28.5 % (42.0-52.0); HEMOGLOBIN 9.5 g/dl (14.0-18.0); LYMPHOCYTES # 1.1 10^3/ul (0.8-2.9); MEAN CORPUSCULAR HEMOGLOBIN 30.7 pg (29.0-33.0); MEAN CORPUSCULAR HGB CONC 33.3 g/dl (32.0-37.0); MEAN CORPUSCULAR VOLUME 92.2 fl (82.0-101.0); MONOCYTE # 1.1 10^3/ul (0.3-0.9); MONOCYTES % 12.5 % (0.0-11.0); NEUTROPHIL # 6.4 10^3/ul (1.6-7.5); NEUTROPHILS % 70.6 % (39.0-77.0); PLATELET COUNT 304 10^3/UL (140-415); RED BLOOD COUNT 3.09 10^6/ul (4.70-6.10); RED CELL DISTRIBUTION WIDTH 16.4 % (11.5-14.5)
[2017-08-10 06:03] LABS: IRON 17 ug/dl (35-150)
[2017-08-10 06:04] LABS: ALBUMIN 2.4 g/dl (3.3-4.9); ALBUMIN/GLOBULIN RATIO 0.92; BILIRUBIN,INDIRECT 1.5 mg/dl (0-1.1); BILIRUBIN,TOTAL 1.5 mg/dl (0.2-1.3); CALCIUM 7.8 mg/dl (8.4-10.2); CREATININE 1.58 mg/dl (0.61-1.24); POTASSIUM 4.6 mmol/L (3.5-5.1)
[2017-08-10 06:05] LABS: PHOSPHORUS 4.8 mg/dl (2.5-4.9)
[2017-08-10 06:12] LABS: TOTAL IRON BINDING CAPACITY 215 ug/dl (241-421)
[2017-08-10] MEDS: FERROUS SULFATE (EC) 325 MG TAB PO SCH (09:10)
[2017-08-10] MEDS: DOCUSATE SODIUM 100 MG CAP PO SCH ×2 (09:10→21:03)
[2017-08-10] MEDS: PANTOPRAZOLE (EC) 40 MG TAB PO SCH ×2 (09:11→21:03)
[2017-08-10] MEDS: TICAGRELOR 90 MG TABLET PO SCH ×2 (09:11→21:09)
[2017-08-10] MEDS: ASPIRIN (EC) 81 MG TAB PO SCH (09:11)
--- NOTE | 2017-08-10 09:29 | PN ---
Date/Time of Note Date/Time of Note DATE: 08/10/17 TIME: 09:26 Assessment/Plan VTE Prophylaxis VTE Prophylaxis Intervention: SCD's Lines/Catheters IV [facility]from [facility] PICC Line Central line still needed: Yes Urinary Cath still in place: Yes Reason Cath still needed: urinary retention Assessment/Plan Chief Complaint/Hosp Course Assessment/Plan: 87 yo M without known hx of cardiopulmonary disease presented with weakness to clinic, found with acute inferior STEMI, S/P emergent thrombectomy/ PCI RCA (using FEDERICO) with subsequent cardiogenic shock requiring dopamine drip to maintain MAPs, now resolving, off pressors presently. 1. Acute inferior STEMI - S/P emergent thrombectomy/ PCI RCA (using FEDERICO) -Continue current cardiac medications, aspirin, Brilinta, Lipitor, follow-up cardiology recommendations 2. Cardiogenic shock -anderson cultured 11.3 for hypotension though suspect 2/2 STEMI , status post treatment with dopamine, now blood pressure stable, off pressors - monitor for now 3. s/p recent bacteremia -white count normal, blood cultures this admission negative for growth, CXR 2 days ago without evidence of pna - monitor 4. dyslipidemia - on Lipitor 5. gout: Held allopurinol yesterday secondary to MARCOS -Because of continued toe possible gout pain, will start prednisone 30 mg daily. 6. Low magnesium: Repleted, stable now, monitor 7. Stridor, mild shortness of breath: present now - We will get chest x-ray, consider pulmonary consult as well. - Continue duo nebs, will make them every 6 hours [id number] for now. 8. AK I: Creatinine slightly increasing, urine output is adequate -Monitor for now, if worsens, consider renal consult. critical care time today: 40 minutes Problems: Subjective 24 Hr Interval Summary Free Text/Dictation Patient with some mild shortness of breath in the last 24 hours also complaining of some bilateral toe pain, otherwise no acute events overnight. Exam/Review of Systems Vital Signs Vitals Vital Signs Date Time Temp Pulse Resp B/P Pulse Ox O2 Delivery O2 Flow Rate FiO2 08/10/17 08:10 74 21 99 21 08/10/17 08:00 147/80 Room Air 08/10/17 07:00 98.2 08/10/17 05:01 1.0 Intake and Output 08/09/17 08/09/17 08/10/17 15:00 23:00 07:00 Intake Total 240 ml 300 ml 400 ml Output Total 1035 ml 240 ml 320 ml Balance -795 ml 60 ml 80 ml Exam nad, alert Pupils equal round reactive to light, extra ocular muscles intact Neck supple lungs slightly distant breath sounds, no wheezes or crackles heard bilaterally no mrg abd soft, NT, ND No lower exam edema bilaterally No focal deficits Results Result Diagram: 08/10/17 0510 08/10/1710 Results 24 hrs Laboratory Tests Test 08/09/17 10:15 08/09/17 23:15 08/10/17 05:00 08/10/17 05:10 White Blood Count 9.6 9.0 Red Blood Count 2.41 L 3.09 #L Hemoglobin 7.7 L 9.5 #L Hematocrit 23.5 L 28.5 #L Mean Corpuscular Volume 97.5 92.2 Mean Corpuscular Hemoglobin 32.0 30.7 Mean Corpuscular Hemoglobin Concent 32.8 33.3 Red Cell Distribution Width 13.9 16.4 H Platelet Count 309 304 Mean Platelet Volume 9.9 10.0 Neutrophils % 71.5 70.6 Lymphocytes % 14.5 L 12.0 L Monocytes % 10.9 12.5 H Eosinophils % 2.0 3.7 Basophils % 0.5 0.4 Nucleated Red Blood Cells % 0.0 0.0 Neutrophils # 6.9 6.4 Lymphocytes # 1.4 1.1 Monocytes # 1.1 H 1.1 H Eosinophils # 0.2 0.3 Basophils # 0.1 0.0 Nucleated Red Blood Cells # 0.0 0.0 Sodium Level 135 134 L Potassium Level 4.1 4.6 Chloride Level 110 108 Carbon Dioxide Level 18 L 18 L Anion Gap 11 13 Blood Urea Nitrogen 18 20 Creatinine 1.43 H 1.58 H Glucose Level 92 91 Calcium Level 7.7 L 7.8 L Phosphorus Level 3.9 4.8 Magnesium Level 0.9 *L 2.0 # Total Bilirubin 0.9 1.5 H Direct Bilirubin 0.00 0.00 Indirect Bilirubin 0.9 1.5 H Aspartate Amino Transf (AST/SGOT) 65 H 51 H Alanine Aminotransferase (ALT/SGPT) 44 36 Alkaline Phosphatase 65 79 Total Protein 5.6 L 5.0 L Albumin 2.6 L 2.4 L Globulin 3.00 2.60 Albumin/Globulin Ratio 0.86 0.92 Stool Occult Blood NEGATIVE Iron Level 17 L Total Iron Binding Capacity 215 L Percent Iron Saturation 8 L B-Type Natriuretic Peptide 9890 H Medications Medications Current Medications Ondansetron HCl (Zofran Tab) 4 mg Q6H PRN PO NAUSEA AND/OR VOMITING; Start 08/06/17 at 12:00 Ondansetron HCl (Zofran Inj) 4 mg Q6H PRN IV NAUSEA AND/OR VOMITING; Start 08/06/17 at 12:00 Metoclopramide HCl (Reglan) 10 mg Q6H PRN IV NAUSEA AND/OR VOMITING; Start 08/06/17 at 12:00 Acetaminophen (Tylenol Liquid) 650 mg Q6H PRN PO PAIN LEVEL 1-3 OR FEVER; Start 08/06/17 at 12:00 Acetaminophen (Tylenol Tab) 650 mg Q6H PRN PO PAIN LEVEL 1-3 OR FEVER Last administered on 08/06/17 21:03; Admin Dose 650 MG; Start 08/06/17 at 12:00 Acetaminophen/ Hydrocodone Bitart ([place] (5/325)) 1 tab Q6H PRN PO PAIN LEVEL 4 -6; Start 08/06/17 at 12:00 Docusate Sodium (Colace) 100 mg Q12H PRN PO CONSTIPATION; Start 08/06/17 at 12: 00 Magnesium Hydroxide (Milk Of Mag) 30 ml DAILY PRN PO CONSTIPATION; Start at 12:00 Bisacodyl (Dulcolax) 5 mg DAILY PRN PO CONSTIPATION; Start 08/06/17 at 12:00 Allopurinol (Zyloprim) 100 mg BID PO Last administered on 08/09/17 09:03; Admin Dose 100 MG; Start 08/06/17 at 21:00; Status Future Hold Enalapril Maleate (Vasotec) 10 mg DAILY PO ; Start 08/07/17 at 09:00; Status Future Hold Ferrous Sulfate (Ferrous Sulfate (Ec)) 325 mg DAILY PO Last administered on 09:10; Admin Dose 325 MG; Start 08/07/17 at 09:00 Pantoprazole (Protonix Tab) 40 mg BID PO Last administered on 08/10/17 09:11; Admin Dose 40 MG; Start 08/06/17 at 21:00 Aspirin (Halfprin) 81 mg DAILY PO Last administered on 08/10/17 09:11; Admin Dose 81 MG; Start 08/07/17 at 09:00 Ticagrelor (Brilinta) 90 mg BID PO Last administered on 08/10/17 09:11; Admin Dose 90 MG; Start 08/06/17 at 21:00 Oxycodone/ Acetaminophen (Percocet (5/ 325)) 1 tab Q4H PRN PO REPORTED NON- CARDIAC PAIN 4-7; Start 08/06/17 at 12:00 Morphine Sulfate (morphine) 1 mg Q1H PRN IV PAIN NOT RELIEVED BY OTHERS Last administered on 08/09/17 04:43; Admin Dose 1 MG; Start 08/06/17 at 12:00 Docusate Sodium (Colace) 100 mg BID PO Last administered on 08/10/17 09:10; Admin Dose 100 MG; Start 08/06/17 at 21:00 Atorvastatin Calcium 80 mg 80 mg DAILY@21 PO Last administered on 08/09/17 21: 00; Admin Dose 80 MG; Start 08/06/17 at 21:00 Dopamine HCl/ Dextrose 250 ml @ 3.75 mls/hr TITRATE IV Last administered on 23:01; Admin Dose 18.75 MLS/HR; Start 08/06/17 at 22:10 Carvedilol (Coreg) 3.125 mg BID PO Last administered on 08/10/17 09:10; Admin Dose 3.125 MG; Start 08/09/17 at 21:00 MINA CALI 7, 2017 09:29
[2017-08-10] MEDS ORDERED: METHYLPREDNISOLONE 125 MG INJ IM ONE (09:30)
[2017-08-10] MEDS ORDERED: predniSONE 10 MG TAB PO SCH (09:30)
[2017-08-10] MEDS ORDERED: METHYLPREDNISOLONE 125 MG INJ IV ONE (09:30)
[2017-08-10] MEDS ORDERED: LEVALBUTEROL (NEB) 1.25 MG/0.5 ML AMP HHN SCH ×2 (09:30→14:00)
[2017-08-10] MEDS ORDERED: METHYLPREDNISOLONE 125 MG INJ ONE (09:31)
--- NOTE | 2017-08-10 09:59 | CONS ---
Date/Time of Note Date/Time of Note DATE: 08/10/17 TIME: 09:56 Consult Date/Type/Reason Admit Date/Time Aug 06, 2017 at 10:21 Initial Consult Date 08/06/17 Type of Consultation: interventional card Ordering Provider: LAVON HUNTER MD Subjective cardiology follow up note/ critical care note: S: D/ W staff and rhythm was reviewed. pt remains in NSR/ sinus tachycardia his BP is stable now he has had increasing sob intermittently and wheezing. he denies any cp or pressure to me but has sob. no bleeding is reported. no groin pain O: General: no acute distress HEENT: NC/AT. pupils are equal. round. NECK: NO JVD.+ stridor. CV: RRR. systolic murmur; no gallop or rubs. PULM: no wheezing or rhonchi in the lung. but upper airway stridors/ wheezing GI: SOFT, NT, ND, no rebound or guarding Extremity: trace B/L LE edema. no clubbing. neuro: awake and alert, OX2. Psych: calm and pleasant rectal: deferred : normal male vascular R fem sheath removed now with no hematoma or bleeding but + echymosis. ECG NSR marked inf ST elevation c/w acute inferior STEMI Echo reviewed personally: 1. Lower limits of normal systolic function. Normal left ventricular cavity size. Mild concentric left ventricular hypertrophy. Ejection fraction is visually estimated at 50 %. Tissue Doppler/Mitral Doppler indices are consistent with impaired relaxation (Stage I diastolic dysfunction). These segments of the LV are hypokinetic inferior mid segment and inferior apex segment. 2. Normal appearance of the mitral valve. Mild mitral annular calcification. Trace mitral regurgitation. 3. No significant aortic stenosis or insufficiency. Aortic cusps appear mildly calcified. 4. Normal appearance of the tricuspid valve. Unable to obtain RVSP due to minimal presence of tricuspid regurgitation. CXR reviewed. Objective Vital Signs Date Time Temp Pulse Resp B/P Pulse Ox O2 Delivery O2 Flow Rate FiO2 08/10/17 08:10 74 21 99 21 08/10/17 08:00 147/80 Room Air 08/10/17 07:00 98.2 08/10/17 05:01 1.0 Intake and Output 08/09/17 08/09/17 08/10/17 15:00 23:00 07:00 Intake Total 240 ml 300 ml 400 ml Output Total 1035 ml 240 ml 320 ml Balance -795 ml 60 ml 80 ml Results/Medications Result Diagram: 08/10/17 0510 08/10/17 0510 Results 24 hrs Laboratory Tests Test 08/09/17 10:15 08/09/17 23:15 08/10/17 05:00 08/10/17 05:10 White Blood Count 9.6 9.0 Red Blood Count 2.41 L 3.09 #L Hemoglobin 7.7 L 9.5 #L Hematocrit 23.5 L 28.5 #L Mean Corpuscular Volume 97.5 92.2 Mean Corpuscular Hemoglobin 32.0 30.7 Mean Corpuscular Hemoglobin Concent 32.8 33.3 Red Cell Distribution Width 13.9 16.4 H Platelet Count 309 304 Mean Platelet Volume 9.9 10.0 Neutrophils % 71.5 70.6 Lymphocytes % 14.5 L 12.0 L Monocytes % 10.9 12.5 H Eosinophils % 2.0 3.7 Basophils % 0.5 0.4 Nucleated Red Blood Cells % 0.0 0.0 Neutrophils # 6.9 6.4 Lymphocytes # 1.4 1.1 Monocytes # 1.1 H 1.1 H Eosinophils # 0.2 0.3 Basophils # 0.1 0.0 Nucleated Red Blood Cells # 0.0 0.0 Sodium Level 135 134 L Potassium Level 4.1 4.6 Chloride Level 110 108 Carbon Dioxide Level 18 L 18 L Anion Gap 11 13 Blood Urea Nitrogen 18 20 Creatinine 1.43 H 1.58 H Glucose Level 92 91 Calcium Level 7.7 L 7.8 L Phosphorus Level 3.9 4.8 Magnesium Level 0.9 *L 2.0 # Total Bilirubin 0.9 1.5 H Direct Bilirubin 0.00 0.00 Indirect Bilirubin 0.9 1.5 H Aspartate Amino Transf (AST/SGOT) 65 H 51 H Alanine Aminotransferase (ALT/SGPT) 44 36 Alkaline Phosphatase 65 79 Total Protein 5.6 L 5.0 L Albumin 2.6 L 2.4 L Globulin 3.00 2.60 Albumin/Globulin Ratio 0.86 0.92 Stool Occult Blood NEGATIVE Iron Level 17 L Total Iron Binding Capacity 215 L Percent Iron Saturation 8 L B-Type Natriuretic Peptide 9890 H Medications Current Medications Ondansetron HCl (Zofran Tab) 4 mg Q6H PRN PO NAUSEA AND/OR VOMITING; Start 08/06/17 at 12:00 Ondansetron HCl (Zofran Inj) 4 mg Q6H PRN IV NAUSEA AND/OR VOMITING; Start 08/06/17 at 12:00 Metoclopramide HCl (Reglan) 10 mg Q6H PRN IV NAUSEA AND/OR VOMITING; Start 08/06/17 at 12:00 Acetaminophen (Tylenol Liquid) 650 mg Q6H PRN PO PAIN LEVEL 1-3 OR FEVER; Start 08/06/17 at 12:00 Acetaminophen (Tylenol Tab) 650 mg Q6H PRN PO PAIN LEVEL 1-3 OR FEVER Last administered on 08/06/17 21:03; Admin Dose 650 MG; Start 08/06/17 at 12:00 Acetaminophen/ Hydrocodone Bitart ([place] (5/325)) 1 tab Q6H PRN PO PAIN LEVEL 4 -6; Start 08/06/17 at 12:00 Docusate Sodium (Colace) 100 mg Q12H PRN PO CONSTIPATION; Start 08/06/17 at 12: 00 Magnesium Hydroxide (Milk Of Mag) 30 ml DAILY PRN PO CONSTIPATION; Start at 12:00 Bisacodyl (Dulcolax) 5 mg DAILY PRN PO CONSTIPATION; Start 08/06/17 at 12:00 Allopurinol (Zyloprim) 100 mg BID PO Last administered on 08/09/17 09:03; Admin Dose 100 MG; Start 08/06/17 at 21:00; Status Future Hold Enalapril Maleate (Vasotec) 10 mg DAILY PO ; Start 08/07/17 at 09:00; Status Future Hold Ferrous Sulfate (Ferrous Sulfate (Ec)) 325 mg DAILY PO Last administered on 09:10; Admin Dose 325 MG; Start 08/07/17 at 09:00 Pantoprazole (Protonix Tab) 40 mg BID PO Last administered on 08/10/17 09:11; Admin Dose 40 MG; Start 08/06/17 at 21:00 Aspirin (Halfprin) 81 mg DAILY PO Last administered on 08/10/17 09:11; Admin Dose 81 MG; Start 08/07/17 at 09:00 Ticagrelor (Brilinta) 90 mg BID PO Last administered on 08/10/17 09:11; Admin Dose 90 MG; Start 08/06/17 at 21:00 Oxycodone/ Acetaminophen (Percocet (5/ 325)) 1 tab Q4H PRN PO REPORTED NON- CARDIAC PAIN 4-7; Start 08/06/17 at 12:00 Morphine Sulfate (morphine) 1 mg Q1H PRN IV PAIN NOT RELIEVED BY OTHERS Last administered on 08/09/17 04:43; Admin Dose 1 MG; Start 08/06/17 at 12:00 Docusate Sodium (Colace) 100 mg BID PO Last administered on 08/10/17 09:10; Admin Dose 100 MG; Start 08/06/17 at 21:00 Atorvastatin Calcium 80 mg 80 mg DAILY@21 PO Last administered on 08/09/17 21: 00; Admin Dose 80 MG; Start 08/06/17 at 21:00 Dopamine HCl/ Dextrose 250 ml @ 3.75 mls/hr TITRATE IV Last administered on 23:01; Admin Dose 18.75 MLS/HR; Start 08/06/17 at 22:10 Carvedilol (Coreg) 3.125 mg BID PO Last administered on 08/10/17 09:10; Admin Dose 3.125 MG; Start 08/09/17 at 21:00 Methylprednisolone Sodium Succinate (Solu-Medrol) 125 mg ONCE ONCE IV Last administered on 08/10/17 09:34; Admin Dose 125 MG; Start 08/10/17 at 09:30; Stop 08/10/17 at 09:31 Assessment/Plan Chief Complaint/Hosp Course 1. Acute inferior STEMI 2/ S/P emergent thrombectomy/ PCI RCA (using FEDERICO) 3. Cardiogenic shock: BP has improved now 4. s/p recent bacteremia 5. dyslipidemia 6/ abnormal ECG due to above \7. severe and worsening anemia 8/ MARCOS 9. Hypo Mg. : corrected now 10. resp failure/ stridors now Rec: cont ASA and Brilinta. completed integrillin post PCI ICU care ABX PER IM. statin will check iron study and stool guiac to r/o active GI bleed consider transfusion prn replace Mg prn will try low dose coreg solumedrol now for stridors consider pulm consultation More than 36 minutes of critical care time was spent in management and treatment of this critically ill patient excluding any procedures. Thank you for his referral. I will continue to follow along with you. HAYDEN WAGNER MD [facility] Problems: HAYDEN WAGNER MD Aug 10, 2017 09:59
[2017-08-10] MEDS ORDERED: RACEPINEPHRINE 2.25%(NEB) 0.5 ML AMP HHN ONE ×4 (14:00)
[2017-08-10] MEDS ORDERED: FUROSEMIDE 40 MG INJ IV SCH (14:00)
--- NOTE | 2017-08-10 15:15 | RADRPT ---
PROCEDURE: XR Chest. CLINICAL INDICATION: Shortness of breath. TECHNIQUE: Single frontal view. COMPARISON: 08/08/2017. FINDINGS: There is a left arm PICC line with the tip in the lower superior vena cava. There is mild left basil ar atelectasis. There is a benign calcified granuloma in the right upper lobe. The lungs are otherwi se clear. The heart is mildly enlarged. There is calcification in the aorta consistent with atherosclerosis. There is no pleural effusion. There is no pneumothorax. IMPRESSION: 1. Left arm PICC line. 2. Previous granulomatous disease. 3. Otherwise clear lungs. 4. Mild cardiomegaly. 5. Atherosclerosis. 6. Otherwise unremarkable chest radiograph. RPTAT: QQ .Elliott Cao MD, MD Date Time Electronically viewed and signed by .Elliott Cao MD, on 08/10/2017 15:15 .R/
--- NOTE | 2017-08-10 15:17 | CONS ---
DATE OF ADMISSION: 08/06/2017 DATE OF CONSULTATION: 08/10/2017 TYPE OF CONSULTATION: Pulmonary. REASON FOR CONSULTATION: Respiratory distress. HISTORY OF PRESENT ILLNESS: This is an 87-year-old gentleman who presented with chest pain concerni ng for myocardial infarction, found to have 100% RCA occlusion and underwent PCI. Post-procedure to day has had significant stridor. No evidence of aspiration or pulmonary edema. No hemoptysis, shannon temesis. He has accessory muscle use with stridor which he has never had before. PAST MEDICAL HISTORY: As above. ALLERGIES: NONE. SOCIAL HISTORY: Nonsmoker, no alcohol, no history of drug use. FAMILY HISTORY: Noncontributory. SYSTEMS REVIEW: A 12-point review of systems was negative other than that mentioned above. PHYSICAL EXAMINATION: GENERAL: Well-nourished, well-developed gentleman, comfortable at rest, no acute distress. VITAL SIGNS: Currently afebrile, pulse is 82, blood pressure 112/89, O2 saturation 96% on 2 L nasal cannula. NECK: Supple. No JVD or lymphadenopathy. CARDIAC: S1, S2, no added sounds or murmurs. CHEST: Diminished air entry bilaterally. ABDOMEN: Soft, nontender. No guarding or rebound. EXTREMITIES: No cyanosis, clubbing, or edema. NEUROLOGIC: Generalized weakness. He has audible stridor in the neck but clear lung blue. LABORATORIES: White count 9.0, hemoglobin 9.5, BUN 20, creatinine 1.58, INR 1.05. DIAGNOSTIC DATA: Chest x-ray: No infiltrates or effusions. IMPRESSION AND PLAN: 1. Stridor, unclear etiology. 2. Possible aspiration. 3. Possible pulmonary edema. The patient will require 1. Continue steroids. 2. Receiving epinephrine. 3. Gentle diuresis. 4. Repeat chest x-ray in a.m. Dictated By: CHUCK LOPEZ/ROXANNE Conf#: [id number] DID#: [id number]
[2017-08-10] MEDS: ACETAMINOPHEN 325 MG TAB PO PRN (15:48)
[2017-08-10] MEDS: ATORVASTATIN 80 MG TAB PO SCH (21:03)
[2017-08-11] VITALS (24 sets, daily range): BP systolic 105–144; BP diastolic 54–93; PULSE 55–76; RESP 14–31
[2017-08-11] MEDS: RACEPINEPHRINE 2.25%(NEB) 0.5 ML AMP HHN PRN (00:06)
[2017-08-11 05:14] LABS: ABNORMAL IP MESSAGE 1; HEMATOCRIT 28.3 % (42.0-52.0); HEMOGLOBIN 9.4 g/dl (14.0-18.0); LYMPHOCYTES # 0.5 10^3/ul (0.8-2.9); MEAN CORPUSCULAR HEMOGLOBIN 29.9 pg (29.0-33.0); MEAN CORPUSCULAR HGB CONC 33.2 g/dl (32.0-37.0); MEAN CORPUSCULAR VOLUME 90.1 fl (82.0-101.0); MEAN PLATELET VOLUME 10.3 fl (7.4-10.4); MONOCYTE # 0.2 10^3/ul (0.3-0.9); MONOCYTES % 2.4 % (0.0-11.0); NEUTROPHIL # 7.6 10^3/ul (1.6-7.5); NEUTROPHILS % 91.2 % (39.0-77.0); PLATELET COUNT 311 10^3/UL (140-415); POSITIVE DIFF @See below; RED BLOOD COUNT 3.14 10^6/ul (4.70-6.10); RED CELL DISTRIBUTION WIDTH 15.5 % (11.5-14.5); WHITE BLOOD COUNT 8.3 10^3/ul (4.8-10.8)
[2017-08-11 06:17] LABS: CALCIUM 8.2 mg/dl (8.4-10.2); CREATININE 1.77 mg/dl (0.61-1.24)
--- NOTE | 2017-08-11 07:35 | CONS ---
Date/Time of Note Date/Time of Note DATE: 08/11/17 TIME: 07:30 Consult Date/Type/Reason Admit Date/Time Aug 06, 2017 at 10:21 Initial Consult Date 08/06/17 Type of Consultation: interventional card Ordering Provider: LAVON HUNTER MD Subjective cardiology follow up note/ critical care note: S: D/ W staff and rhythm was reviewed. pt remains in NSR his BP is stable now he has had less sob and stridors now he denies any cp or pressure to me but has sob. no bleeding is reported. no groin pain O: General: no acute distress HEENT: NC/AT. pupils are equal. round. NECK: NO JVD.+ stridor. CV: RRR. systolic murmur; no gallop or rubs. PULM: no wheezing or rhonchi in the lung. but mild upper airway stridors/ wheezing GI: SOFT, NT, ND, no rebound or guarding Extremity: trace B/L LE edema. no clubbing. neuro: awake and alert, OX2. Psych: calm and pleasant rectal: deferred : normal male vascular R fem sheath removed now with no hematoma or bleeding but + echymosis. ECG NSR marked inf ST elevation c/w acute inferior STEMI Echo reviewed personally: 1. Lower limits of normal systolic function. Normal left ventricular cavity size. Mild concentric left ventricular hypertrophy. Ejection fraction is visually estimated at 50 %. Tissue Doppler/Mitral Doppler indices are consistent with impaired relaxation (Stage I diastolic dysfunction). These segments of the LV are hypokinetic inferior mid segment and inferior apex segment. 2. Normal appearance of the mitral valve. Mild mitral annular calcification. Trace mitral regurgitation. 3. No significant aortic stenosis or insufficiency. Aortic cusps appear mildly calcified. 4. Normal appearance of the tricuspid valve. Unable to obtain RVSP due to minimal presence of tricuspid regurgitation. CXR reviewed. Objective Vital Signs Date Time Temp Pulse Resp B/P Pulse Ox O2 Delivery O2 Flow Rate FiO2 08/11/17 06:00 57 16 111/54 98 Room Air 08/11/17 04:00 98.4 08/11/17 00:06 21 08/10/17 17:25 2.0 Intake and Output 08/10/17 08/10/17 08/11/17 15:00 23:00 07:00 Intake Total 580 ml 680 ml 200 ml Output Total 1010 ml 1650 ml 1050 ml Balance -430 ml -970 ml -850 ml Results/Medications Result Diagram: 08/11/17 0425 08/11/17 0425 Results 24 hrs Laboratory Tests Test 08/11/17 04:25 08/11/17 05:09 White Blood Count 8.3 Red Blood Count 3.14 L Hemoglobin 9.4 L Hematocrit 28.3 L Mean Corpuscular Volume 90.1 Mean Corpuscular Hemoglobin 29.9 Mean Corpuscular Hemoglobin Concent 33.2 Red Cell Distribution Width 15.5 H Platelet Count 311 Mean Platelet Volume 10.3 Neutrophils % 91.2 H Lymphocytes % 6.0 L Monocytes % 2.4 Eosinophils % 0.0 Basophils % 0.0 Nucleated Red Blood Cells % 0.0 Neutrophils # 7.6 H Lymphocytes # 0.5 L Monocytes # 0.2 L Eosinophils # 0.0 Basophils # 0.0 Nucleated Red Blood Cells # 0.0 Sodium Level 132 L Potassium Level 4.0 Chloride Level 104 Carbon Dioxide Level 19 L Anion Gap 13 Blood Urea Nitrogen 30 H Creatinine 1.77 H Glucose Level 134 # Calcium Level 8.2 L Lab Scanned Report BLOOD TRANSFUSION Medications Current Medications Ondansetron HCl (Zofran Tab) 4 mg Q6H PRN PO NAUSEA AND/OR VOMITING; Start 08/06/17 at 12:00 Ondansetron HCl (Zofran Inj) 4 mg Q6H PRN IV NAUSEA AND/OR VOMITING; Start 08/06/17 at 12:00 Metoclopramide HCl (Reglan) 10 mg Q6H PRN IV NAUSEA AND/OR VOMITING; Start 08/06/17 at 12:00 Acetaminophen (Tylenol Liquid) 650 mg Q6H PRN PO PAIN LEVEL 1-3 OR FEVER; Start 08/06/17 at 12:00 Acetaminophen (Tylenol Tab) 650 mg Q6H PRN PO PAIN LEVEL 1-3 OR FEVER Last administered on 08/10/17t 15:48; Admin Dose 650 MG; Start 08/06/17 at 12:00 Acetaminophen/ Hydrocodone Bitart ([place] (5/325)) 1 tab Q6H PRN PO PAIN LEVEL 4 -6; Start 08/06/17 at 12:00 Docusate Sodium (Colace) 100 mg Q12H PRN PO CONSTIPATION; Start 08/06/17 at 12: 00 Magnesium Hydroxide (Milk Of Mag) 30 ml DAILY PRN PO CONSTIPATION; Start at 12:00 Bisacodyl (Dulcolax) 5 mg DAILY PRN PO CONSTIPATION; Start 08/06/17 at 12:00 Ferrous Sulfate (Ferrous Sulfate (Ec)) 325 mg DAILY PO Last administered on 09:10; Admin Dose 325 MG; Start 08/07/17 at 09:00 Pantoprazole (Protonix Tab) 40 mg BID PO Last administered on 08/10/17 21:03; Admin Dose 40 MG; Start 08/06/17 at 21:00 Aspirin (Halfprin) 81 mg DAILY PO Last administered on 08/10/17 09:11; Admin Dose 81 MG; Start 08/07/17 at 09:00 Ticagrelor (Brilinta) 90 mg BID PO Last administered on 08/10/17 21:09; Admin Dose 90 MG; Start 08/06/17 at 21:00 Oxycodone/ Acetaminophen (Percocet (5/ 325)) 1 tab Q4H PRN PO REPORTED NON- CARDIAC PAIN 4-7; Start 08/06/17 at 12:00 Morphine Sulfate (morphine) 1 mg Q1H PRN IV PAIN NOT RELIEVED BY OTHERS Last administered on 08/09/17 04:43; Admin Dose 1 MG; Start 08/06/17 at 12:00 Docusate Sodium (Colace) 100 mg BID PO Last administered on 08/10/17 21:03; Admin Dose 100 MG; Start 08/06/17 at 21:00 Atorvastatin Calcium 80 mg 80 mg DAILY@21 PO Last administered on 08/10/17 21: 03; Admin Dose 80 MG; Start 08/06/17 at 21:00 Dopamine HCl/ Dextrose 250 ml @ 3.75 mls/hr TITRATE IV Last administered on 23:01; Admin Dose 18.75 MLS/HR; Start 08/06/17 at 22:10 Carvedilol (Coreg) 3.125 mg BID PO Last administered on 08/10/17 21:03; Admin Dose 3.125 MG; Start 08/09/17 at 21:00 Furosemide (Lasix) 40 mg DAILY IV Last administered on 08/10/17 14:10; Admin Dose 40 MG; Start 08/10/17 at 14:00 Assessment/Plan Chief Complaint/Hosp Course 1. Acute inferior STEMI 2/ S/P emergent thrombectomy/ PCI RCA (using FEDER[place]) 3. s/p Cardiogenic shock: BP has improved now 4. s/p recent bacteremia 5. dyslipidemia 6/ abnormal ECG due to above \7. severe and worsening anemia 8/ MARCOS 9. Hypo Mg. : corrected now 10. resp failure/ stridors: pulm input is appreciated. improved but not resolved yet. 11. anemia; stable with negative Guiac stool Rec: cont ASA and Brilinta. ABX PER IM. statin consider transfusion prn replace Mg prn will cont low dose coreg s/p solumedrol for stridors: consider ENT consult will dc lasix. pt is not fluid oveloaded and has worsening renal fx. will give gentle fluid More than 37 minutes of critical care time was spent in management and treatment of this critically ill patient excluding any procedures. Thank you for his referral. I will continue to follow along with you. HAYDEN WAGNER MD [facility] Problems: HAYDEN WAGNER MD Aug 11, 2017 07:35
--- NOTE | 2017-08-11 07:43 | RADRPT ---
PROCEDURE: XR Chest. CLINICAL INDICATION: Pneumonia, CHF. TECHNIQUE: Single portable view of the chest was obtained COMPARISON: DR STUART CHEST 03/05/2017; SADE CHEST 12/23/2016; SADE CHEST 03/24/2016 FINDINGS: Left upper extremity PICC line tip overlies the distal superior vena cava. Low lung volumes accounts. Cardiomediastinal silhouette is enlarged. There is aortic atherosclerotic disease. Interval decreased pulmonary vascular congestion is noted at the Probable small left-sided pleural effusion. Left lower lobe air space disease is decreased. A right upper lobe calcified gran uloma is noted. IMPRESSION: 1. Interval decreased pulmonary vascular congestion. 2. Probable small left-sided pleural effusion. 3. Decreased lung lower lobe air space disease. 4. Cardiomegaly with thoracic aortic atherosclerotic disease. 5. Left upper extremity PICC line. RPTAT: HRSR Physician Luciana Date Time Electronically viewed and signed by Physician Luciana on 08/11/2017 07:42 RR/
[2017-08-11 07:52] LABS: AADO2 Arterial 37.8 mmHg (7.0-24.0); Allen Test ACCEPTAB; Arterial Base Excess -7.7 mmol/L (-3.0-3); Arterial COHb 0.3 % (0.0-3.0); Arterial Fraction of Oxyhgb 94.9 % (93.0-99.0); Arterial HCO3 15.4 mmol/L (22.0-26.0); Arterial MetHb 0.2 % (0.0-1.5); Arterial Total Hemglobin 12.1 g/dl (12.0-18.0); MODE ROOM AIR
[2017-08-11] MEDS ORDERED: SOD CHLORIDE 0.9% 1,000 ML IV SCH (08:00)
[2017-08-11] MEDS: FERROUS SULFATE (EC) 325 MG TAB PO SCH (08:05)
[2017-08-11] MEDS: ASPIRIN (EC) 81 MG TAB PO SCH (08:05)
[2017-08-11] MEDS: DOCUSATE SODIUM 100 MG CAP PO SCH ×2 (08:05→20:45)
[2017-08-11] MEDS: PANTOPRAZOLE (EC) 40 MG TAB PO SCH ×2 (08:05→20:45)
[2017-08-11] MEDS: TICAGRELOR 90 MG TABLET PO SCH ×2 (08:07→20:49)
--- NOTE | 2017-08-11 09:26 | CONS ---
Date/Time of Note Date/Time of Note DATE: 08/11/17 TIME: 09:25 Consult Date/Type/Reason Admit Date/Time Aug 06, 2017 at 10:21 Initial Consult Date 08/06/17 Type of Consultation: Pulmonary Ordering Provider: LAVON HUNTER MD Subjective Still having intermittent stridor. Improved with racemic epinephrine. Stridor is more exertional. Objective Vital Signs Date Time Temp Pulse Resp B/P Pulse Ox O2 Delivery O2 Flow Rate FiO2 08/11/17 08:00 66 08/11/17 07:00 97.8 15 124/74 100 Room Air 08/11/17 00:06 21 08/10/17 17:25 2.0 Intake and Output 08/10/17 08/10/17 08/11/17 15:00 23:00 07:00 Intake Total 580 ml 680 ml 200 ml Output Total 1010 ml 1650 ml 1100 ml Balance -430 ml -970 ml -900 ml Exam PHYSICAL EXAMINATION: GENERAL: Well-nourished, well-developed gentleman, comfortable at rest, no acute distress. VITAL SIGNS: NECK: Supple. No JVD or lymphadenopathy. CARDIAC: S1, S2, no added sounds or murmurs. CHEST: Diminished air entry bilaterally. ABDOMEN: Soft, nontender. No guarding or rebound. EXTREMITIES: No cyanosis, clubbing, or edema. NEUROLOGIC: Generalized weakness. Results/Medications Result Diagram: 08/11/17 0425 08/11/17 0425 Results 24 hrs Laboratory Tests Test 08/11/17 04:25 08/11/17 05:09 08/11/17 07:00 White Blood Count 8.3 Red Blood Count 3.14 L Hemoglobin 9.4 L Hematocrit 28.3 L Mean Corpuscular Volume 90.1 Mean Corpuscular Hemoglobin 29.9 Mean Corpuscular Hemoglobin Concent 33.2 Red Cell Distribution Width 15.5 H Platelet Count 311 Mean Platelet Volume 10.3 Neutrophils % 91.2 H Lymphocytes % 6.0 L Monocytes % 2.4 Eosinophils % 0.0 Basophils % 0.0 Nucleated Red Blood Cells % 0.0 Neutrophils # 7.6 H Lymphocytes # 0.5 L Monocytes # 0.2 L Eosinophils # 0.0 Basophils # 0.0 Nucleated Red Blood Cells # 0.0 Sodium Level 132 L Potassium Level 4.0 Chloride Level 104 Carbon Dioxide Level 19 L Anion Gap 13 Blood Urea Nitrogen 30 H Creatinine 1.77 H Glucose Level 134 # Calcium Level 8.2 L Lab Scanned Report BLOOD TRANSFUSION Blood Gas Specimen Source Blood arterial Arterial Blood Date Drawn 08/11/2017 7:30:38 AM Arterial Blood pH (Temp corrected) 7.406 Arterial Blood pCO2 (Temp correct) 25.1 L Arterial Blood pO2 (Temp corrected) 81.9 Arterial Blood HCO3 15.4 L Arterial Blood Base Excess -7.7 L Arterial Blood Oxygen Saturation 95.4 Mike Test ACCEPTAB Arterial Blood Gas Puncture Site Left Radial Arterial Blood Carboxyhemoglobin 0.3 Arterial Blood Methemoglobin 0.2 Blood Gas A-a O2 Differential 37.8 H Oxyhemoglobin Percent 94.9 Total Hemoglobin 12.1 Blood Gas Temperature 37.0 Blood Gas Modality ROOM AIR FiO2 21.0 Blood Gas Notified Whom JLD Blood Gas Notified Time 08/11/2017 7:52:03 AM Medications Current Medications Ondansetron HCl (Zofran Tab) 4 mg Q6H PRN PO NAUSEA AND/OR VOMITING; Start 08/06/17 at 12:00 Ondansetron HCl (Zofran Inj) 4 mg Q6H PRN IV NAUSEA AND/OR VOMITING; Start 08/06/17 at 12:00 Metoclopramide HCl (Reglan) 10 mg Q6H PRN IV NAUSEA AND/OR VOMITING; Start 08/06/17 at 12:00 Acetaminophen (Tylenol Liquid) 650 mg Q6H PRN PO PAIN LEVEL 1-3 OR FEVER; Start 08/06/17 at 12:00 Acetaminophen (Tylenol Tab) 650 mg Q6H PRN PO PAIN LEVEL 1-3 OR FEVER Last administered on 08/10/17t 15:48; Admin Dose 650 MG; Start 08/06/17 at 12:00 Acetaminophen/ Hydrocodone Bitart ([place] (5/325)) 1 tab Q6H PRN PO PAIN LEVEL 4 -6; Start 08/06/17 at 12:00 Docusate Sodium (Colace) 100 mg Q12H PRN PO CONSTIPATION; Start 08/06/17 at 12: 00 Magnesium Hydroxide (Milk Of Mag) 30 ml DAILY PRN PO CONSTIPATION; Start at 12:00 Bisacodyl (Dulcolax) 5 mg DAILY PRN PO CONSTIPATION; Start 08/06/17 at 12:00 Ferrous Sulfate (Ferrous Sulfate (Ec)) 325 mg DAILY PO Last administered on 08:05; Admin Dose 325 MG; Start 08/07/17 at 09:00 Pantoprazole (Protonix Tab) 40 mg BID PO Last administered on 08/11/17 08:05; Admin Dose 40 MG; Start 08/06/17 at 21:00 Aspirin (Halfprin) 81 mg DAILY PO Last administered on 08/11/17 08:05; Admin Dose 81 MG; Start 08/07/17 at 09:00 Ticagrelor (Brilinta) 90 mg BID PO Last administered on 08/11/17 08:07; Admin Dose 90 MG; Start 08/06/17 at 21:00 Oxycodone/ Acetaminophen (Percocet (5/ 325)) 1 tab Q4H PRN PO REPORTED NON- CARDIAC PAIN 4-7; Start 08/06/17 at 12:00 Morphine Sulfate (morphine) 1 mg Q1H PRN IV PAIN NOT RELIEVED BY OTHERS Last administered on 08/09/17 04:43; Admin Dose 1 MG; Start 08/06/17 at 12:00 Docusate Sodium (Colace) 100 mg BID PO Last administered on 08/11/17 08:05; Admin Dose 100 MG; Start 08/06/17 at 21:00 Atorvastatin Calcium 80 mg 80 mg DAILY@21 PO Last administered on 08/10/17 21: 03; Admin Dose 80 MG; Start 08/06/17 at 21:00 Dopamine HCl/ Dextrose 250 ml @ 3.75 mls/hr TITRATE IV Last administered on 23:01; Admin Dose 18.75 MLS/HR; Start 08/06/17 at 22:10 Carvedilol 3.125 mg 3.125 mg BID PO Last administered on 08/11/17 08:06; Admin Dose 3.125 MG; Start 08/09/17 at 21:00 Sodium Chloride (NS) 1,000 ml @ 60 mls/hr [id number] IV Last administered on 08/11 08:07; Admin Dose 60 MLS/HR; Start 08/11/17 at 08:00; Stop 08/12/17 at 00: 39 Assessment/Plan Chief Complaint/Hosp Course IMPRESSION AND PLAN: 1. Stridor, unclear etiology. Possible vocal cord edema questionable angioedema. 2. Possible aspiration. 3. ST elevation WI status post PCI. The patient will require 1. Cardiac recommendations. 2. Receiving epinephrine. 3. Gentle diuresis. 4. Trial of steroids. 5. ENT evaluation. Keep in ICU. Problems: CHUCK PANCHAL MD, [facility] Aug 11, 2017 09:26
--- NOTE | 2017-08-11 11:03 | PN ---
Date/Time of Note Date/Time of Note DATE: 08/11/17 TIME: 11:00 Assessment/Plan VTE Prophylaxis VTE Prophylaxis Intervention: SCD's Lines/Catheters IV Catheter Type (from Nrs): PICC Line Central line still needed: Yes Urinary Cath still in place: Yes Reason Cath still needed: urinary retention Assessment/Plan Chief Complaint/Hosp Course Assessment/Plan: 87 yo M without known hx of cardiopulmonary disease presented with weakness to clinic, found with acute inferior STEMI, S/P emergent thrombectomy/ PCI RCA (using FEDERICO) with subsequent cardiogenic shock requiring dopamine drip to maintain MAPs, now resolving, off pressors presently. 1. Acute inferior STEMI - S/P emergent thrombectomy/ PCI RCA (using FEDERICO) -Continue current cardiac medications, aspirin, Brilinta, Lipitor, follow-up cardiology recommendations 2. Cardiogenic shock -anderson cultured 11.3 for hypotension though suspect 2/2 STEMI , status post treatment with dopamine, now blood pressure stable, off pressors - monitor for now 3. s/p recent bacteremia -white count normal, blood cultures this admission negative for growth, CXR 2 days ago without evidence of pna - monitor 4. dyslipidemia - on Lipitor 5. gout: Holding allopurinol secondary to MARCOS -Because of continued toe possible gout pain, continue steroids for now 6. Low magnesium: Repleted, stable now, monitor 7. Stridor, mild shortness of breath: on Solumedrol. - per pulmonary consult rec's, will contact ENT as well - Continue duo nebs 8. MARCOS: Creatinine still increasing, urine output is adequate -Monitor , will also get renal consult. critical care time today: 40 minutes Problems: Subjective 24 Hr Interval Summary Free Text/Dictation No acute events overnight, still with some gout pain. Exam/Review of Systems Vital Signs Vitals Vital Signs Date Time Temp Pulse Resp B/P Pulse Ox O2 Delivery O2 Flow Rate FiO2 08/11/17 09:00 68 24 138/88 100 Room Air 08/11/17 07:00 97.8 08/11/17 00:06 21 08/10/17 17:25 2.0 Intake and Output 08/10/17 08/10/17 08/11/17 15:00 23:00 07:00 Intake Total 580 ml 680 ml 200 ml Output Total 1010 ml 1650 ml 1100 ml Balance -430 ml -970 ml -900 ml Exam nad, alert Pupils equal round reactive to light, extra ocular muscles intact Neck supple lungs slightly distant breath sounds, no wheezes or crackles heard bilaterally no mrg abd soft, NT, ND No lower exam edema bilaterally No focal deficits Results Result Diagram: 08/11/17 0425 08/11/17 0425 Results 24 hrs Laboratory Tests Test 08/11/17 04:25 08/11/17 05:09 08/11/17 07:00 White Blood Count 8.3 Red Blood Count 3.14 L Hemoglobin 9.4 L Hematocrit 28.3 L Mean Corpuscular Volume 90.1 Mean Corpuscular Hemoglobin 29.9 Mean Corpuscular Hemoglobin Concent 33.2 Red Cell Distribution Width 15.5 H Platelet Count 311 Mean Platelet Volume 10.3 Neutrophils % 91.2 H Lymphocytes % 6.0 L Monocytes % 2.4 Eosinophils % 0.0 Basophils % 0.0 Nucleated Red Blood Cells % 0.0 Neutrophils # 7.6 H Lymphocytes # 0.5 L Monocytes # 0.2 L Eosinophils # 0.0 Basophils # 0.0 Nucleated Red Blood Cells # 0.0 Sodium Level 132 L Potassium Level 4.0 Chloride Level 104 Carbon Dioxide Level 19 L Anion Gap 13 Blood Urea Nitrogen 30 H Creatinine 1.77 H Glucose Level 134 # Calcium Level 8.2 L Lab Scanned Report BLOOD TRANSFUSION Blood Gas Specimen Source Blood arterial Arterial Blood Date Drawn 08/11/2017 7:30:38 AM Arterial Blood pH (Temp corrected) 7.406 Arterial Blood pCO2 (Temp correct) 25.1 L Arterial Blood pO2 (Temp corrected) 81.9 Arterial Blood HCO3 15.4 L Arterial Blood Base Excess -7.7 L Arterial Blood Oxygen Saturation 95.4 Mike Test ACCEPTAB Arterial Blood Gas Puncture Site Left Radial Arterial Blood Carboxyhemoglobin 0.3 Arterial Blood Methemoglobin 0.2 Blood Gas A-a O2 Differential 37.8 H Oxyhemoglobin Percent 94.9 Total Hemoglobin 12.1 Blood Gas Temperature 37.0 Blood Gas Modality ROOM AIR FiO2 21.0 Blood Gas Notified Whom JLD Blood Gas Notified Time 08/11/2017 7:52:03 AM Medications Medications Current Medications Ondansetron HCl (Zofran Tab) 4 mg Q6H PRN PO NAUSEA AND/OR VOMITING; Start 08/06/17 at 12:00 Ondansetron HCl (Zofran Inj) 4 mg Q6H PRN IV NAUSEA AND/OR VOMITING; Start 08/06/17 at 12:00 Metoclopramide HCl (Reglan) 10 mg Q6H PRN IV NAUSEA AND/OR VOMITING; Start 08/06/17 at 12:00 Acetaminophen (Tylenol Liquid) 650 mg Q6H PRN PO PAIN LEVEL 1-3 OR FEVER; Start 08/06/17 at 12:00 Acetaminophen (Tylenol Tab) 650 mg Q6H PRN PO PAIN LEVEL 1-3 OR FEVER Last administered on 08/10/17 15:48; Admin Dose 650 MG; Start 08/06/17 at 12:00 Acetaminophen/ Hydrocodone Bitart ([place] (5/325)) 1 tab Q6H PRN PO PAIN LEVEL 4 -6; Start 08/06/17 at 12:00 Docusate Sodium (Colace) 100 mg Q12H PRN PO CONSTIPATION; Start 08/06/17 at 12: 00 Magnesium Hydroxide (Milk Of Mag) 30 ml DAILY PRN PO CONSTIPATION; Start at 12:00 Bisacodyl (Dulcolax) 5 mg DAILY PRN PO CONSTIPATION; Start 08/06/17 at 12:00 Ferrous Sulfate (Ferrous Sulfate (Ec)) 325 mg DAILY PO Last administered on 08:05; Admin Dose 325 MG; Start 08/07/17 at 09:00 Pantoprazole (Protonix Tab) 40 mg BID PO Last administered on 08/11/17 08:05; Admin Dose 40 MG; Start 08/06/17 at 21:00 Aspirin (Halfprin) 81 mg DAILY PO Last administered on 08/11/17 08:05; Admin Dose 81 MG; Start 08/07/17 at 09:00 Ticagrelor (Brilinta) 90 mg BID PO Last administered on 08/11/17 08:07; Admin Dose 90 MG; Start 08/06/17 at 21:00 Oxycodone/ Acetaminophen (Percocet (5/ 325)) 1 tab Q4H PRN PO REPORTED NON- CARDIAC PAIN 4-7; Start 08/06/17 at 12:00 Morphine Sulfate (morphine) 1 mg Q1H PRN IV PAIN NOT RELIEVED BY OTHERS Last administered on 08/09/17 04:43; Admin Dose 1 MG; Start 08/06/17 at 12:00 Docusate Sodium (Colace) 100 mg BID PO Last administered on 08/11/17 08:05; Admin Dose 100 MG; Start 08/06/17 at 21:00 Atorvastatin Calcium 80 mg 80 mg DAILY@21 PO Last administered on 08/10/17 21: 03; Admin Dose 80 MG; Start 08/06/17 at 21:00 Dopamine HCl/ Dextrose 250 ml @ 3.75 mls/hr TITRATE IV Last administered on 23:01; Admin Dose 18.75 MLS/HR; Start 08/06/17 at 22:10 Carvedilol 3.125 mg 3.125 mg BID PO Last administered on 08/11/17 08:06; Admin Dose 3.125 MG; Start 08/09/17 at 21:00 Sodium Chloride (NS) 1,000 ml @ 60 mls/hr [id number] IV Last administered on 08/11 08:07; Admin Dose 60 MLS/HR; Start 08/11/17 at 08:00; Stop 08/12/17 at 00: 39 Methylprednisolone Sodium Succinate (Solu-Medrol) 60 mg Q6 IV ; Start 08/11/17 at 12:00 MINA CALI 8, 2017 11:03
[2017-08-11] MEDS: METHYLPREDNISOLONE 125 MG INJ IV SCH ×2 (11:05→17:41)
[2017-08-11 11:57] LABS: ADD UMIC YES; UR ASCORBIC ACID NEGATIVE (NEGATIVE); UR BACTERIA FEW /HPF (NONE SEEN); UR BILIRUBIN (Dip) NEGATIVE (NEGATIVE); UR BLOOD (Dip) 3+ mg/dL (NEGATIVE); UR CLARITY CLEAR (CLEAR); UR COLOR YELLOW (YELLOW); UR GLUCOSE (Dip) NEGATIVE (NEGATIVE); UR KETONES (Dip) NEGATIVE (NEGATIVE); UR LEUKOCYTE ESTERASE (Dip) 1+ Leu/ul (NEGATIVE); UR MUCUS FEW /HPF (NONE SEEN); UR NITRITE (Dip) NEGATIVE (NEGATIVE); UR RBC > 182 /HPF (0-5); UR TOTAL PROTEIN (Dip) 1+ mg/dl (NEGATIVE); UR UROBILINOGEN (Dip) NEGATIVE (NEGATIVE)
--- NOTE | 2017-08-11 12:39 | RADRPT ---
PROCEDURE: Renal US. CLINICAL INDICATION: Acute kidney injury TECHNIQUE: Multiple sonographic images of the kidneys were obtained. The images were reviewed on a PACS workstation. COMPARISON: None FINDINGS: The kidneys are well visualized. The right kidney measures 8.5 cm. The left kidney measures 10.5 cm. Bilateral echogenic kidneys. Left renal cyst, which measures up to 1.5 cm. There is no evidence for nephrolithiasis or obstructive uropathy. The bladder is not visualized likely due to Holland catheter in place. IMPRESSION: Bilateral echogenic kidneys compatible with medical renal disease. RPTAT: QQ Physician Phong Date Time Electronically viewed and signed by Physician Phong on 08/11/2017 12:39 /
--- NOTE | 2017-08-11 12:41 | CONS ---
DATE OF ADMISSION: 08/06/2017 DATE OF CONSULTATION: TYPE OF CONSULTATION: Nephrology. REASON FOR CONSULTATION: Acute kidney injury. PHYSICIAN REQUESTING CONSULT: Dr. Modi. HISTORY OF PRESENT ILLNESS: This is an 87-year-old male with a past medical history of gout, gallst one pancreatitis, who presented to [facility] from his clinic after concerns for p ossible STEMI. The patient was transferred to the ER. Repeat EKG showed STEMI. The patient was ta kris urgently to the laboratory worker and was found to have 100% RCA occlusion. He underwent PCI. Subsequen tly his course was complicated with cardiogenic shock and was placed on dopamine. The patient was e ventually weaned off pressor support. The patient currently is hemodynamically stable. There have been no episodes of hemoptysis, hematemesis or hematochezia. In terms of the patient's renal history, the patient has underlying CKD with a baseline creatinine o f 1.2 mg/dL. Over the course of the last 48 hours, the patient has had increase in creatinine from 1.2 to 1.77 mg/dL. During this time, the patient was noted to be hypotensive in shock. The patient 's urinary output has been adequate. There have been no reports of any hemoptysis, hematemesis or h ematochezia. PAST MEDICAL HISTORY: As stated above. History of cardiomyopathy, history of hypertension. PAST SURGICAL HISTORY: Status post gallbladder removal. FAMILY HISTORY: Noncontributory. SOCIAL HISTORY: Does not drink, smoke or do drugs. MEDICATIONS: The patient's medications have been reviewed. REVIEW OF SYSTEMS: A 14-point review of systems was conducted. Pertinent positives stated in HPI, otherwise negative. PHYSICAL EXAMINATION: VITAL SIGNS: Blood pressure is 133/88, respirations 24, pulse 68, temperature 97.8. HEENT: Head is normocephalic. NECK: Supple. HEART: Regular rate. LUNGS: Show diminished breath sounds at the base. ABDOMEN: Soft, nontender to palpation. No rebound or guarding. EXTREMITIES: Negative for clubbing, cyanosis, no edema. DERMATOLOGIC: No rashes. MUSCULOSKELETAL: No joint effusions. NEUROLOGIC: No change in exam. MEDICATIONS: The patient's medications have been reviewed. LABORATORY DATA: Showed sodium 132, potassium 4.0, BUN 30, creatinine 1.77, calcium 8.2. White cou nt 8.3, hemoglobin 9.4, hematocrit 28.3, platelet count 311. Patient's chest x-ray on 08/11/2017 sh ows decreased lung volumes, interval decrease in pulmonary vascular congestion. ASSESSMENT AND PLAN: This is an 87-year-old male who presents with: 1. Nonoliguric acute kidney injury on top of chronic kidney disease with previous baseline creatini ne 1.2 mg/dL. Etiology of acute kidney injury is multifactorial, likely secondary to contrast-assoc iated nephropathy, possible tubular injury due to ischemic hypoperfusion acute tubular necrosis. Pl an at this point is to repeat urinalysis with microanalysis. Will check urine electrolytes. We joy l check a renal ultrasound to evaluate renal parenchyma, although suspicion is low for any form of o bstruction. Would recommend to continue current treatment plan, supportive care, renally dose all m eds, avoid hypotensive episodes. Would decrease IV fluids given the patient's underlying congestive heart failure and monitor closely. I would also recommend to discontinue and hold any [place] inhibito r or ARB. Avoid any NSAID use. 2. Hyponatremia, etiology secondary to acute kidney injury causing decreased free water urinary exc retion. We will limit free water intake. 3. Metabolic acidosis secondary to acute kidney injury. We will monitor bicarbonate levels. 4. Anemia. Monitor hemoglobin and hematocrit levels. 5. Mineral bone disorder. Monitor calcium and phosphorus levels. 6. Acute congestive heart failure exacerbation, status post cardiogenic shock. Continue intermitte nt diuretic therapy. Monitor renal function closely. 7. Acute inferior ST elevation myocardial infarction, status post cardiac catheterization with perc utaneous coronary intervention to right coronary artery. Continue medical management. 8. Status post bacteremia. 9. Lipidemia. Continue Lipitor. 10. Hypomagnesemia. Continue to monitor and replete. Stridor, shortness of breath improved with S jessica-Medrol. Thank you, Dr. Modi, for this interesting consult. It will be a pleasure to follow the patient with you throughout the hospital course. Please note I spent over 40 minutes of critical care time with this patient. Dictated By: LIZET BUTTERFIELD DO NR/NTS Conf#: [id number] DID#: [id number]
[2017-08-11] MEDS: ATORVASTATIN 80 MG TAB PO SCH (20:45)
[2017-08-12] VITALS (22 sets, daily range): BP systolic 110–164; BP diastolic 59–125; PULSE 56–75; RESP 14–25
[2017-08-12] MEDS: METHYLPREDNISOLONE 125 MG INJ IV SCH ×5 (00:09→23:40)
[2017-08-12 05:23] LABS: ABNORMAL IP MESSAGE 1; HEMATOCRIT 27.9 % (42.0-52.0); HEMOGLOBIN 9.4 g/dl (14.0-18.0); LYMPHOCYTES # 0.4 10^3/ul (0.8-2.9); LYMPHOCYTES % 6.3 % (15.0-51.0); MEAN CORPUSCULAR HEMOGLOBIN 30.5 pg (29.0-33.0); MEAN CORPUSCULAR HGB CONC 33.7 g/dl (32.0-37.0); MEAN CORPUSCULAR VOLUME 90.6 fl (82.0-101.0); MONOCYTE # 0.1 10^3/ul (0.3-0.9); MONOCYTES % 1.6 % (0.0-11.0); NEUTROPHIL # 6.3 10^3/ul (1.6-7.5); NEUTROPHILS % 91.7 % (39.0-77.0); NUCLEATED RED BLOOD CELLS% 0.4 /100WBC (0.0-0.0); PLATELET COUNT 319 10^3/UL (140-415); POSITIVE DIFF @See below; RED BLOOD COUNT 3.08 10^6/ul (4.70-6.10); RED CELL DISTRIBUTION WIDTH 15.5 % (11.5-14.5); WHITE BLOOD COUNT 6.8 10^3/ul (4.8-10.8)
[2017-08-12 05:46] LABS: ALBUMIN 2.6 g/dl (3.3-4.9); ALBUMIN/GLOBULIN RATIO 0.78; BILIRUBIN,INDIRECT 0.3 mg/dl (0-1.1); BILIRUBIN,TOTAL 0.3 mg/dl (0.2-1.3); CALCIUM 8.2 mg/dl (8.4-10.2); CREATININE 1.76 mg/dl (0.61-1.24); MAGNESIUM 1.6 mg/dl (1.7-2.5); POTASSIUM 3.9 mmol/L (3.5-5.1); TOTAL PROTEIN 5.9 g/dl (6.1-8.1)
--- NOTE | 2017-08-12 07:41 | CONS ---
Date/Time of Note Date/Time of Note DATE: 08/12/17 TIME: 07:39 Consult Date/Type/Reason Admit Date/Time Aug 06, 2017 at 10:21 Initial Consult Date 08/06/17 Type of Consultation: cardiology Ordering Provider: LAVON HUNTER MD Subjective cardiology follow up note/ critical care note: S: D/ W staff and rhythm was reviewed. pt remains in NSR his BP is stable now he has had less sob and stridors now, but intermittently with stridor he denies any cp or pressure to me but has sob. no bleeding is reported. no groin pain O: General: no acute distress HEENT: NC/AT. pupils are equal. round. NECK: NO JVD. mild stridor. CV: RRR. systolic murmur; no gallop or rubs. PULM: no wheezing or rhonchi in the lung. but mild upper airway stridors/ wheezing GI: SOFT, NT, ND, no rebound or guarding Extremity: trace B/L LE edema. no clubbing. neuro: awake and alert, OX2. Psych: calm and pleasant rectal: deferred : normal male vascular R fem sheath removed now with no hematoma or bleeding but + echymosis. ECG NSR marked inf ST elevation c/w acute inferior STEMI Echo reviewed personally: 1. Lower limits of normal systolic function. Normal left ventricular cavity size. Mild concentric left ventricular hypertrophy. Ejection fraction is visually estimated at 50 %. Tissue Doppler/Mitral Doppler indices are consistent with impaired relaxation (Stage I diastolic dysfunction). These segments of the LV are hypokinetic inferior mid segment and inferior apex segment. 2. Normal appearance of the mitral valve. Mild mitral annular calcification. Trace mitral regurgitation. 3. No significant aortic stenosis or insufficiency. Aortic cusps appear mildly calcified. 4. Normal appearance of the tricuspid valve. Unable to obtain RVSP due to minimal presence of tricuspid regurgitation. CXR reviewed. Objective Vital Signs Date Time Temp Pulse Resp B/P Pulse Ox O2 Delivery O2 Flow Rate FiO2 08/12/17 06:00 60 16 125/59 99 Room Air 08/12/17 05:58 21 08/12/17 04:00 98.0 08/10/17 17:25 2.0 Intake and Output 08/11/17 08/11/17 08/12/17 15:00 23:00 07:00 Intake Total 1420 ml 1270 ml 110 ml Output Total 500 ml 450 ml 320 ml Balance 920 ml 820 ml -210 ml Results/Medications Result Diagram: 08/12/1741908/12/17 0420 Results 24 hrs Laboratory Tests Test 08/11/17 11:30 08/12/17 04:20 Urine Color YELLOW Urine Clarity CLEAR Urine pH 5.0 Urine Specific [place] 1.010 Urine Ketones NEGATIVE Urine Nitrite NEGATIVE Urine Bilirubin NEGATIVE Urine Urobilinogen NEGATIVE Urine Leukocyte Esterase 1+ H Urine Microscopic RBC > 182 H Urine Microscopic WBC 22 H Urine Bacteria FEW A Urine Mucus FEW A Urine Hemoglobin 3+ H Urine Random Creatinine 54.96 Urine Random Sodium 57 Urine Glucose NEGATIVE Urine Total Protein 51.0 H White Blood Count 6.8 Red Blood Count 3.08 L Hemoglobin 9.4 L Hematocrit 27.9 L Mean Corpuscular Volume 90.6 Mean Corpuscular Hemoglobin 30.5 Mean Corpuscular Hemoglobin Concent 33.7 Red Cell Distribution Width 15.5 H Platelet Count 319 Mean Platelet Volume 11.0 H Neutrophils % 91.7 H Lymphocytes % 6.3 L Monocytes % 1.6 Eosinophils % 0.0 Basophils % 0.0 Nucleated Red Blood Cells % 0.4 H Neutrophils # 6.3 Lymphocytes # 0.4 L Monocytes # 0.1 L Eosinophils # 0.0 Basophils # 0.0 Nucleated Red Blood Cells # 0.0 Sodium Level 136 Potassium Level 3.9 Chloride Level 108 Carbon Dioxide Level 19 L Anion Gap 13 Blood Urea Nitrogen 35 H Creatinine 1.76 H Glucose Level 121 Calcium Level 8.2 L Magnesium Level 1.6 L Total Bilirubin 0.3 Direct Bilirubin 0.00 Indirect Bilirubin 0.3 Aspartate Amino Transf (AST/SGOT) 35 Alanine Aminotransferase (ALT/SGPT) 42 Alkaline Phosphatase 72 B-Type Natriuretic Peptide 8730 H Total Protein 5.9 L Albumin 2.6 L Globulin 3.30 H Albumin/Globulin Ratio 0.78 Medications Current Medications Ondansetron HCl (Zofran Tab) 4 mg Q6H PRN PO NAUSEA AND/OR VOMITING; Start 08/06/17 at 12:00 Ondansetron HCl (Zofran Inj) 4 mg Q6H PRN IV NAUSEA AND/OR VOMITING; Start 08/06/17 at 12:00 Metoclopramide HCl (Reglan) 10 mg Q6H PRN IV NAUSEA AND/OR VOMITING; Start 08/06/17 at 12:00 Acetaminophen (Tylenol Liquid) 650 mg Q6H PRN PO PAIN LEVEL 1-3 OR FEVER; Start 08/06/17 at 12:00 Acetaminophen (Tylenol Tab) 650 mg Q6H PRN PO PAIN LEVEL 1-3 OR FEVER Last administered on 08/10/17 15:48; Admin Dose 650 MG; Start 08/06/17 at 12:00 Acetaminophen/ Hydrocodone Bitart ([place] (5/325)) 1 tab Q6H PRN PO PAIN LEVEL 4 -6; Start 08/06/17 at 12:00 Docusate Sodium (Colace) 100 mg Q12H PRN PO CONSTIPATION; Start 08/06/17 at 12: 00 Magnesium Hydroxide (Milk Of Mag) 30 ml DAILY PRN PO CONSTIPATION; Start at 12:00 Bisacodyl (Dulcolax) 5 mg DAILY PRN PO CONSTIPATION; Start 08/06/17 at 12:00 Ferrous Sulfate (Ferrous Sulfate (Ec)) 325 mg DAILY PO Last administered on 08:05; Admin Dose 325 MG; Start 08/07/17 at 09:00 Pantoprazole (Protonix Tab) 40 mg BID PO Last administered on 08/11/17 20:45; Admin Dose 40 MG; Start 08/06/17 at 21:00 Aspirin (Halfprin) 81 mg DAILY PO Last administered on 08/11/17 08:05; Admin Dose 81 MG; Start 08/07/17 at 09:00 Ticagrelor (Brilinta) 90 mg BID PO Last administered on 08/11/17 20:49; Admin Dose 90 MG; Start 08/06/17 at 21:00 Oxycodone/ Acetaminophen (Percocet (5/ 325)) 1 tab Q4H PRN PO REPORTED NON- CARDIAC PAIN 4-7; Start 08/06/17 at 12:00 Morphine Sulfate (morphine) 1 mg Q1H PRN IV PAIN NOT RELIEVED BY OTHERS Last administered on 08/09/17 04:43; Admin Dose 1 MG; Start 08/06/17 at 12:00 Docusate Sodium (Colace) 100 mg BID PO Last administered on 08/11/17 20:45; Admin Dose 100 MG; Start 08/06/17 at 21:00 Atorvastatin Calcium 80 mg 80 mg DAILY@21 PO Last administered on 08/11/17 20: 45; Admin Dose 80 MG; Start 08/06/17 at 21:00 Dopamine HCl/ Dextrose 250 ml @ 3.75 mls/hr TITRATE IV Last administered on 23:01; Admin Dose 18.75 MLS/HR; Start 08/06/17 at 22:10 Carvedilol (Coreg) 3.125 mg BID PO Last administered on 08/11/17 20:45; Admin Dose 3.125 MG; Start 08/09/17 at 21:00 Methylprednisolone Sodium Succinate (Solu-Medrol) 60 mg Q6 IV Last administered on 08/12/17 05:43; Admin Dose 60 MG; Start 08/11/17 at 12:00 Assessment/Plan Chief Complaint/Hosp Course 1. Acute inferior STEMI 2/ S/P emergent thrombectomy/ PCI RCA (using FEDERICO) 3. s/p Cardiogenic shock: BP has improved now 4. s/p recent bacteremia 5. dyslipidemia 6/ abnormal ECG due to above \7. severe and worsening anemia 8/ MARCOS 9. Hypo Mg. : 10. resp failure/ stridors: pulm input is appreciated. improved but not resolved yet. 11. anemia; stable with negative Guiac stool Rec: cont ASA I will change Brilinta to plavix due to concerns about possibly allergy to brilinta which is the new medication for him. ABX PER IM. statin transfusion prn replace Mg prn will cont low dose coreg s/p solumedrol for stridors: consider ENT consult if does not improve f/u renal rec. More than 36 minutes of critical care time was spent in management and treatment of this critically ill patient excluding any procedures. Thank you for his referral. I will continue to follow along with you. HAYDEN WAGNER MD [facility] Problems: HAYDEN WAGNER MD Aug 12, 2017 07:41
[2017-08-12] MEDS ORDERED: CLOPIDOGREL 75 MG TAB PO ONE (08:00)
[2017-08-12] MEDS ORDERED: MAGNESIUM SULFATE 2 GM/50 ML 50 ML IVPB ONE ×2 (08:00→10:30)
--- NOTE | 2017-08-12 08:20 | PN ---
DATE: 08/12/2017 SUBJECTIVE: The patient is stable. No events overnight. No fevers, chills, nausea, vomiting. Pat ient continues to have shortness of breath. OBJECTIVE: VITAL SIGNS: Blood pressure is 125/59, respirations 16, pulse 60, temperature 98.0. HEENT: Head is normocephalic. NECK: Supple. HEART: Regular rate. LUNGS: Show diminished breath sounds at the base. ABDOMEN: Soft, nontender to palpation. No rebound or guarding. EXTREMITIES: Negative for clubbing, cyanosis, edema. DERMATOLOGIC: No rashes. MUSCULOSKELETAL: No joint effusions. NEUROLOGIC: No change in exam. MEDICATIONS: The patient's medications have been reviewed. LABORATORY DATA: Shows sodium 136, potassium 3.9, chloride 108, BUN 35, creatinine 1.76, magnesium 1.6. White count 6.8, hemoglobin 9.4, hematocrit 27.9, platelet count 319. Renal ultrasound shows bilateral echogenic kidneys repeat urinalysis shows a protein/creatinine ratio of approximately 1 gr am per gram of creatinine, BUN greater than 1%. The patient has pyuria, hematuria greater than 182 RBCs. ASSESSMENT AND PLAN: 1. Nonoliguric acute kidney injury on top of chronic kidney disease with previous baseline creatini ne 1.2 mg/dL. Etiology of current acute kidney injury is multifactorial secondary to contrast-induc ed nephropathy acute tubular necrosis. The patient's repeat urinalysis shows evidence of pyuria, he maturia. The patient has a nonglomerular proteinuria. Renal ultrasound also shows evidence of incr eased renal parenchyma consistent with chronic kidney disease. Renal function appears to have stabi lized in the last 24 hours, as patient may be entering maintenance phase of acute tubular necrosis. At this point, we will continue current treatment plan, supportive care, renally dose all medicatio ns. 2. Hypomagnesemia, replete with magnesium sulfate. 3. Anemia. Monitor hemoglobin and hematocrit levels. 4. Mineral bone disorder. Monitor calcium and phosphorus levels. 5. Metabolic acidosis secondary to acute kidney injury. Continue to monitor. 6. Acute congestive heart failure exacerbation, status post cardiogenic shock. Continue to monitor renal function, continue medical management and follow up with cardiology. 7. Non-ST elevation myocardial infarction, status post percutaneous coronary intervention. Continu e medical management. 8. Dyslipidemia. Continue Lipitor. 9. Stridor. The patient is pending ENT evaluation. Continue steroids. Dictated By: LIZET TRIPLETT/ROXANNE Conf#: [id number] DID#: [id number]
[2017-08-12] MEDS: FERROUS SULFATE (EC) 325 MG TAB PO SCH (08:23)
[2017-08-12] MEDS: CLOPIDOGREL 75 MG TAB NGT SCH (08:23)
[2017-08-12] MEDS: PANTOPRAZOLE (EC) 40 MG TAB PO SCH (08:23)
[2017-08-12] MEDS: DOCUSATE SODIUM 100 MG CAP PO SCH ×2 (08:23→20:57)
[2017-08-12] MEDS: ASPIRIN (EC) 81 MG TAB PO SCH (08:24)
--- NOTE | 2017-08-12 10:17 | CONS ---
Date/Time of Note Date/Time of Note DATE: 08/12/17 TIME: 09:45 Consult Date/Type/Reason Admit Date/Time Aug 06, 2017 at 10:21 Initial Consult Date 08/06/17 Type of Consultation: Pulmonary Ordering Provider: LAVON HUNTER MD Subjective Patient stable. Still has exertional stridor. No chest pain or shortness of breath. Objective Vital Signs Date Time Temp Pulse Resp B/P Pulse Ox O2 Delivery O2 Flow Rate FiO2 08/12/17 09:00 67 19 148/71 99 Room Air 08/12/17 08:00 97.9 08/12/17 05:58 21 08/10/17 17:25 2.0 Intake and Output 08/11/17 08/11/17 08/12/17 14:59 22:59 06:59 Intake Total 1320 ml 1210 ml 270 ml Output Total 450 ml 495 ml 375 ml Balance 870 ml 715 ml -105 ml Exam PHYSICAL EXAMINATION: GENERAL: Well-nourished, well-developed gentleman, comfortable at rest, no acute distress. VITAL SIGNS: NECK: Supple. No JVD or lymphadenopathy. CARDIAC: S1, S2, no added sounds or murmurs. CHEST: Diminished air entry bilaterally. ABDOMEN: Soft, nontender. No guarding or rebound. EXTREMITIES: No cyanosis, clubbing, or edema. NEUROLOGIC: Generalized weakness. Results/Medications Result Diagram: 08/12/1741908/12/17419 Results 24 hrs Laboratory Tests Test 08/11/17 11:30 08/12/17 04:20 Urine Color YELLOW Urine Clarity CLEAR Urine pH 5.0 Urine Specific [place] 1.010 Urine Ketones NEGATIVE Urine Nitrite NEGATIVE Urine Bilirubin NEGATIVE Urine Urobilinogen NEGATIVE Urine Leukocyte Esterase 1+ H Urine Microscopic RBC > 182 H Urine Microscopic WBC 22 H Urine Bacteria FEW A Urine Mucus FEW A Urine Hemoglobin 3+ H Urine Random Creatinine 54.96 Urine Random Sodium 57 Urine Glucose NEGATIVE Urine Total Protein 51.0 H White Blood Count 6.8 Red Blood Count 3.08 L Hemoglobin 9.4 L Hematocrit 27.9 L Mean Corpuscular Volume 90.6 Mean Corpuscular Hemoglobin 30.5 Mean Corpuscular Hemoglobin Concent 33.7 Red Cell Distribution Width 15.5 H Platelet Count 319 Mean Platelet Volume 11.0 H Neutrophils % 91.7 H Lymphocytes % 6.3 L Monocytes % 1.6 Eosinophils % 0.0 Basophils % 0.0 Nucleated Red Blood Cells % 0.4 H Neutrophils # 6.3 Lymphocytes # 0.4 L Monocytes # 0.1 L Eosinophils # 0.0 Basophils # 0.0 Nucleated Red Blood Cells # 0.0 Sodium Level 136 Potassium Level 3.9 Chloride Level 108 Carbon Dioxide Level 19 L Anion Gap 13 Blood Urea Nitrogen 35 H Creatinine 1.76 H Glucose Level 121 Calcium Level 8.2 L Magnesium Level 1.6 L Total Bilirubin 0.3 Direct Bilirubin 0.00 Indirect Bilirubin 0.3 Aspartate Amino Transf (AST/SGOT) 35 Alanine Aminotransferase (ALT/SGPT) 42 Alkaline Phosphatase 72 B-Type Natriuretic Peptide 8730 H Total Protein 5.9 L Albumin 2.6 L Globulin 3.30 H Albumin/Globulin Ratio 0.78 Medications Current Medications Ondansetron HCl (Zofran Tab) 4 mg Q6H PRN PO NAUSEA AND/OR VOMITING; Start 08/06/17 at 12:00 Ondansetron HCl (Zofran Inj) 4 mg Q6H PRN IV NAUSEA AND/OR VOMITING; Start 08/06/17 at 12:00 Metoclopramide HCl (Reglan) 10 mg Q6H PRN IV NAUSEA AND/OR VOMITING; Start 08/06/17 at 12:00 Acetaminophen (Tylenol Liquid) 650 mg Q6H PRN PO PAIN LEVEL 1-3 OR FEVER; Start 08/06/17 at 12:00 Acetaminophen (Tylenol Tab) 650 mg Q6H PRN PO PAIN LEVEL 1-3 OR FEVER Last administered on 08/10/17 15:48; Admin Dose 650 MG; Start 08/06/17 at 12:00 Acetaminophen/ Hydrocodone Bitart ([place] (5/325)) 1 tab Q6H PRN PO PAIN LEVEL 4 -6; Start 08/06/17 at 12:00 Docusate Sodium (Colace) 100 mg Q12H PRN PO CONSTIPATION; Start 08/06/17 at 12: 00 Magnesium Hydroxide (Milk Of Mag) 30 ml DAILY PRN PO CONSTIPATION; Start at 12:00 Bisacodyl (Dulcolax) 5 mg DAILY PRN PO CONSTIPATION; Start 08/06/17 at 12:00 Ferrous Sulfate (Ferrous Sulfate (Ec)) 325 mg DAILY PO Last administered on 08:23; Admin Dose 325 MG; Start 08/07/17 at 09:00 Pantoprazole (Protonix Tab) 40 mg BID PO Last administered on 08/12/17 08:23; Admin Dose 40 MG; Start 08/06/17 at 21:00 Aspirin (Halfprin) 81 mg DAILY PO Last administered on 08/12/17 08:24; Admin Dose 81 MG; Start 08/07/17 at 09:00 Oxycodone/ Acetaminophen (Percocet (5/ 325)) 1 tab Q4H PRN PO REPORTED NON- CARDIAC PAIN 4-7; Start 08/06/17 at 12:00 Morphine Sulfate (morphine) 1 mg Q1H PRN IV PAIN NOT RELIEVED BY OTHERS Last administered on 08/09/17 04:43; Admin Dose 1 MG; Start 08/06/17 at 12:00 Docusate Sodium (Colace) 100 mg BID PO Last administered on 08/12/17 08:23; Admin Dose 100 MG; Start 08/06/17 at 21:00 Atorvastatin Calcium 80 mg 80 mg DAILY@21 PO Last administered on 08/11/17 20: 45; Admin Dose 80 MG; Start 08/06/17 at 21:00 Dopamine HCl/ Dextrose 250 ml @ 3.75 mls/hr TITRATE IV Last administered on 23:01; Admin Dose 18.75 MLS/HR; Start 08/06/17 at 22:10 Carvedilol (Coreg) 3.125 mg BID PO Last administered on 08/12/17 08:24; Admin Dose 3.125 MG; Start 08/09/17 at 21:00 Methylprednisolone Sodium Succinate (Solu-Medrol) 60 mg Q6 IV Last administered on 08/12/17 05:43; Admin Dose 60 MG; Start 08/11/17 at 12:00 Clopidogrel Bisulfate 75 mg 75 mg DAILY NGT Last administered on 08/12/17 08: 23; Admin Dose 75 MG; Start 08/12/17 at 09:00 Magnesium Sulfate (Magnesium Sulfate 2 Gm/50 ml) 50 ml @ 25 mls/hr ONCE ONCE IVPB Last administered on 08/12/17 08:10; Admin Dose 25 MLS/HR; Start at 08:00; Stop 11/9/17 at 09:59 Assessment/Plan Chief Complaint/Hosp Course IMPRESSION AND PLAN: 1. Stridor, unclear etiology. Possible vocal cord edema questionable angioedema. 2. Possible aspiration. 3. ST elevation GA status post PCI. The patient will require 1. Cardiac recommendations. 2. Receiving epinephrine. 3. Gentle diuresis. 4. Trial of steroids. 5. ENT evaluation. Transfer to telemetry Problems: CHUCK PANCHAL MD, [facility] Aug 12, 2017 10:17
--- NOTE | 2017-08-12 10:32 | PN ---
Date/Time of Note Date/Time of Note DATE: 08/12/17 TIME: 10:23 Assessment/Plan VTE Prophylaxis VTE Prophylaxis Intervention: SCD's Lines/Catheters [facility] PICC Line Central line still needed: Yes Urinary Cath still in place: Yes Reason Cath still needed: urinary retention Assessment/Plan Chief Complaint/Hosp Course Assessment/Plan: 87 yo M without known hx of cardiopulmonary disease presented with weakness to clinic, found with acute inferior STEMI, S/P emergent thrombectomy/ PCI RCA (using FEDERICO) with subsequent cardiogenic shock requiring dopamine drip to maintain MAPs, now resolving, off pressors presently. 1. Acute inferior STEMI - S/P emergent thrombectomy/ PCI RCA (using FEDERICO). -Continue current cardiac medications, aspirin, Plavix now, Lipitor, follow- up cardiology recommendations 2. Cardiogenic shock - resolved - anderson cultured 11.3 for hypotension though suspect 2/2 STEMI, status post treatment with dopamine, now blood pressure stable, off pressors - monitor for now 3. s/p recent bacteremia -white count normal, blood cultures this admission negative for growth, CXR 3 days ago without evidence of pna - monitor for now for any fevers or leukocytosis 4. dyslipidemia - on Lipitor 5. gout: Holding allopurinol secondary to MARCOS -Because of continued toe possible gout pain, continue steroids for now 6. Low magnesium: Repleted, stable now, monitor 7. Stridor, mild shortness of breath: on Solumedrol. - per pulmonary consult rec's, will contact ENT as well -follow-up their recommendations - Continue duo nebs prn 8. MARCOS: Creatinine leveling off now (still elevated), appreciate renal consult -Monitor creatinine, follow renal recommendations. critical care time today: 45 minutes Problems: Subjective 24 Hr Interval Summary Free Text/Dictation Pt has less SOB, has some left knee pain, but improved. Exam/Review of Systems Vital Signs Vitals Vital Signs Date Time Temp Pulse Resp B/P Pulse Ox O2 Delivery O2 Flow Rate FiO2 08/12/17 09:00 67 19 148/71 99 Room Air 08/12/17 08:00 97.9 08/12/17 05:58 21 08/10/17 17:25 2.0 Intake and Output 08/11/17 08/11/17 08/12/17 14:59 22:59 06:59 Intake Total 1320 ml 1210 ml 270 ml Output Total 450 ml 495 ml 375 ml Balance 870 ml 715 ml -105 ml Exam nad, alert Pupils equal round reactive to light, extra ocular muscles intact Neck supple lungs slightly distant breath sounds, no wheezes or crackles heard bilaterally no mrg abd soft, NT, ND No lower exam edema bilaterally No focal deficits Results Result Diagram: 08/12/17 04208/12/17 0420 Results 24 hrs Laboratory Tests Test 08/11/17 11:30 08/12/17 04:20 Urine Color YELLOW Urine Clarity CLEAR Urine pH 5.0 Urine Specific [place] 1.010 Urine Ketones NEGATIVE Urine Nitrite NEGATIVE Urine Bilirubin NEGATIVE Urine Urobilinogen NEGATIVE Urine Leukocyte Esterase 1+ H Urine Microscopic RBC > 182 H Urine Microscopic WBC 22 H Urine Bacteria FEW A Urine Mucus FEW A Urine Hemoglobin 3+ H Urine Random Creatinine 54.96 Urine Random Sodium 57 Urine Glucose NEGATIVE Urine Total Protein 51.0 H White Blood Count 6.8 Red Blood Count 3.08 L Hemoglobin 9.4 L Hematocrit 27.9 L Mean Corpuscular Volume 90.6 Mean Corpuscular Hemoglobin 30.5 Mean Corpuscular Hemoglobin Concent 33.7 Red Cell Distribution Width 15.5 H Platelet Count 319 Mean Platelet Volume 11.0 H Neutrophils % 91.7 H Lymphocytes % 6.3 L Monocytes % 1.6 Eosinophils % 0.0 Basophils % 0.0 Nucleated Red Blood Cells % 0.4 H Neutrophils # 6.3 Lymphocytes # 0.4 L Monocytes # 0.1 L Eosinophils # 0.0 Basophils # 0.0 Nucleated Red Blood Cells # 0.0 Sodium Level 136 Potassium Level 3.9 Chloride Level 108 Carbon Dioxide Level 19 L Anion Gap 13 Blood Urea Nitrogen 35 H Creatinine 1.76 H Glucose Level 121 Calcium Level 8.2 L Magnesium Level 1.6 L Total Bilirubin 0.3 Direct Bilirubin 0.00 Indirect Bilirubin 0.3 Aspartate Amino Transf (AST/SGOT) 35 Alanine Aminotransferase (ALT/SGPT) 42 Alkaline Phosphatase 72 B-Type Natriuretic Peptide 8730 H Total Protein 5.9 L Albumin 2.6 L Globulin 3.30 H Albumin/Globulin Ratio 0.78 Medications Medications Current Medications Ondansetron HCl (Zofran Tab) 4 mg Q6H PRN PO NAUSEA AND/OR VOMITING; Start 08/06/17 at 12:00 Ondansetron HCl (Zofran Inj) 4 mg Q6H PRN IV NAUSEA AND/OR VOMITING; Start 08/06/17 at 12:00 Metoclopramide HCl (Reglan) 10 mg Q6H PRN IV NAUSEA AND/OR VOMITING; Start 08/06/17 at 12:00 Acetaminophen (Tylenol Liquid) 650 mg Q6H PRN PO PAIN LEVEL 1-3 OR FEVER; Start 08/06/17 at 12:00 Acetaminophen (Tylenol Tab) 650 mg Q6H PRN PO PAIN LEVEL 1-3 OR FEVER Last administered on 08/10/17 15:48; Admin Dose 650 MG; Start 08/06/17 at 12:00 Acetaminophen/ Hydrocodone Bitart ([place] (5/325)) 1 tab Q6H PRN PO PAIN LEVEL 4 -6; Start 08/06/17 at 12:00 Docusate Sodium (Colace) 100 mg Q12H PRN PO CONSTIPATION; Start 08/06/17 at 12: 00 Magnesium Hydroxide (Milk Of Mag) 30 ml DAILY PRN PO CONSTIPATION; Start at 12:00 Bisacodyl (Dulcolax) 5 mg DAILY PRN PO CONSTIPATION; Start 08/06/17 at 12:00 Ferrous Sulfate (Ferrous Sulfate (Ec)) 325 mg DAILY PO Last administered on 08:23; Admin Dose 325 MG; Start 08/07/17 at 09:00 Aspirin (Halfprin) 81 mg DAILY PO Last administered on 08/12/17 08:24; Admin Dose 81 MG; Start 08/07/17 at 09:00 Oxycodone/ Acetaminophen (Percocet (5/ 325)) 1 tab Q4H PRN PO REPORTED NON- CARDIAC PAIN 4-7; Start 08/06/17 at 12:00 Morphine Sulfate (morphine) 1 mg Q1H PRN IV PAIN NOT RELIEVED BY OTHERS Last administered on 08/09/17 04:43; Admin Dose 1 MG; Start 08/06/17 at 12:00 Docusate Sodium (Colace) 100 mg BID PO Last administered on 08/12/17 08:23; Admin Dose 100 MG; Start 08/06/17 at 21:00 Atorvastatin Calcium 80 mg 80 mg DAILY@21 PO Last administered on 08/11/17 20: 45; Admin Dose 80 MG; Start 08/06/17 at 21:00 Dopamine HCl/ Dextrose 250 ml @ 3.75 mls/hr TITRATE IV Last administered on 23:01; Admin Dose 18.75 MLS/HR; Start 08/06/17 at 22:10 Carvedilol (Coreg) 3.125 mg BID PO Last administered on 08/12/17 08:24; Admin Dose 3.125 MG; Start 08/09/17 at 21:00 Methylprednisolone Sodium Succinate (Solu-Medrol) 60 mg Q6 IV Last administered on 08/12/17 05:43; Admin Dose 60 MG; Start 08/11/17 at 12:00 Clopidogrel Bisulfate (plaVIX) 75 mg DAILY NGT Last administered on 08/12/17 08:23; Admin Dose 75 MG; Start 08/12/17 at 09:00 Famotidine (Pepcid) 20 mg BID PO ; Start 08/12/17 at 21:00 MINA CALI 9, 2017 10:31
[2017-08-12 14:09] LABS: MICROALBUMIN 12.2 mg/dL
--- NOTE | 2017-08-12 15:59 | CONS ---
DATE OF ADMISSION: 08/06/2017 DATE OF CONSULTATION: HISTORY OF PRESENT ILLNESS: René Lincoln is an 87-year-old gentleman admitted with STEMI. E NT has been consulted for evaluation of expiratory stridor, worse with exertion. At no point did it appear to cause any desaturation. PAST MEDICAL HISTORY: Gout, gallstone pancreatitis. PAST SURGICAL HISTORY: Cholecystectomy. DRUG ALLERGIES: NONE. MEDICATIONS: List was reviewed. SOCIAL HISTORY: Negative for tobacco, alcohol or drug abuse. FAMILY HISTORY: Negative for any heart, lung, kidney, thyroid or liver disease. REVIEW OF SYSTEMS: A 12-point review of systems otherwise noncontributory. PHYSICAL EXAMINATION: Today, his nose shows septal deviation to the left. Mucosa without erythema or edema. Oral cavity and oropharynx showed tongue and mouth normal. Oropharynx without lesion. N o lymphadenopathy or thyromegaly. Trachea is midline without lesion. Endoscopy was then performed through the right nasal cavity and nasopharynx is clear. Base of tongue is symmetric. Vallecula is open. Epiglottis is normal. Vocal cords are moving well. There are no lesions. He does have wha t appears to be anterior approximately 1.5 cm down into his trachea, but it is not something I can easily evaluate with an upper endoscopy. I think it is reasonable to proceed with a CT of his chest to evaluate this. Dictated By: PHILIP EDEN/ROXANNE Conf#: [id number] DID#: [id number]
[2017-08-12] MEDS: ATORVASTATIN 80 MG TAB PO SCH (20:57)
[2017-08-12] MEDS: FAMOTIDINE 20 MG TAB PO SCH (20:57)
[2017-08-13] VITALS (12 sets, daily range): BP systolic 121–149; BP diastolic 63–87; PULSE 57–72; RESP 16–24
--- NOTE | 2017-08-13 03:04 | RADRPT ---
PROCEDURE: CT Chest without contrast. CLINICAL INDICATION: Tracheal mass. TECHNIQUE: CT scan of the chest without contrast was performed on a multidetector high-resolution CT scanner. Coronal and sagittal reformatted images were obtained from the axial source images. The total exam CTDI equals 9.69 mGy and the total exam DLP equals 308.46 mGy-cm. One or more of the following dose reduction techniques were utilized: 1.) Automated exposure control 2.) Adjustment of the mA +/- kV according to patient's size 3.) Use of iterative reconstruction technique. COMPARISON: Plain film chest dated 08/11/2017. FINDINGS: The lungs are clear. Trace bilateral pleural effusions. Chronic granulomatous disease in the right l shanda. Otherwise, no focal opacification, pneumothorax, edema, or nodules are seen. There is no pulmo nary infiltrate. No mass lesion to suggest neoplasm is identified. The central tracheobronchial tr ee is clear. There is no identified tracheal mass. However, bilateral main bronchi are narrowed, onl y measuring up to 5 mm. The nir is also narrowed, measuring up to 5 mm. The trachea measures abou t 17 x 11 mm at its midportion. The mediastinum is unremarkable without evidence for mass or lymphadenopathy. The vascular structur es of the mediastinum are normal in course and caliber. Aortic vascular calcifications and coronary artery calcifications are present. The heart size is mildly enlarged, with trace pericardial fluid . The axillary regions, subpectoral regions, and supraclavicular regions are all unremarkable. The villasenor rrounding chest wall is unremarkable. Imaging obtained through the upper abdomen reveals no acute a bnormality. The surrounding osseous structures are remarkable for degenerative spondylosis of the s pine. No osteolytic or osteoblastic lesion is detected. 20 mm likely sebaceous cyst in the upper right back. IMPRESSION: 1. No evident tracheal mass, although the trachea, nir and bilateral main bronchi demonstrate sma ll diameters. 2. Mild cardiomegaly with trace pericardial fluid, otherwise nonspecific. 3. Trace bilateral pleural effusions. 4. Otherwise, no acute process in the chest. RPTAT: UU Kulwant Talbot, Physician Date Time Electronically viewed and signed by Kulwatn Talbot Physician on 08/13/2017 03:03 [place]/
--- NOTE | 2017-08-13 03:19 | RADRPT ---
PROCEDURE: CT soft tissue neck with contrast CLINICAL INDICATION: Rule out tracheal mass. TECHNIQUE: The study was performed utilizing a GE 64-slice multidetector CT scanner. Direct thin s ection helically acquired axial sections were obtained through the neck without intravenous contrast . Coronal and sagittal reformations were obtained. The images were reviewed on a PACS workstation. Virginia walters total CTDIvol is 10.07 mGy and the DLP is 225.30 mGy-cm. One or more of the following dose reduction techniques were used: - Automated exposure control. - Adjustment of the mA and/or kV according to patient size. - Use of iterative reconstruction technique. COMPARISON: None. FINDINGS: One or more of the following dose reduction techniques were used: Automated exposure control. Adjustment of the mA and/or kV according to patient size. Use of iterative reconstruction techniques. SOFT TISSUES: The nasopharynx is unremarkable. Mucosal secretions contact the left lateral free edge of the epiglottis on axial image 29. The oropharynx, hypopharynx, and larynx are free of soft tissu e masses. LYMPH NODES: No pathologically enlarged lymphadenopathy is present. SALIVARY GLANDS: The bilateral parotid and submandibular glands demonstrate no evidence of calculi or soft tissue masses. VASCULAR: Variation far medial course of the bilateral internal carotid arteries into the retrophary ngeal space is demonstrated on axial image 20 compatible with kissing carotids. This finding should not be mistaken for a submucosal mass. ORBITS: The bilateral ocular globes, extraocular muscles, optic nerves, retrobulbar fat and orbital apices are symmetric. PARANASAL SINUSES: Small bilateral maxillary sinus retention cyst or polyps are present. MASTOID SINUSES: Mild opacification of the right mastoid sinus without coalescence of the mastoid s epta. CERVICAL SPINE: Advanced spondylotic changes involve C3-C4 through C6-C7. 5 mm anterolisthesis of C6 relative to C7 is present. There are multilevel uncovertebral and facet joint degenerate changes. IMPRESSION: 1. No evidence of a soft tissue mass, pathologically enlarged lymphadenopathy, or infectious/inflam matory process. 2. Secretions contacting the left lateral free edge of the epiglottis. 3. Mild opacification of the right mastoid sinus without mastoid septa coalescence. 4. Variation for medial course of the bilateral internal carotid arteries into the retropharyngeal space. Findings should not be mistaken for submucosal masses. 5. 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 6. 5 mm anterolisthesis of C6 relative to C7. RPTAT: HRSR Physician Luciana Date Time Electronically viewed and signed by Kristie Christianson Physician on 08/13/2017 03:19 RR/
[2017-08-13] MEDS: METHYLPREDNISOLONE 125 MG INJ IV SCH ×3 (06:30→21:50)
[2017-08-13] MEDS: RACEPINEPHRINE 2.25%(NEB) 0.5 ML AMP HHN PRN (06:36)
[2017-08-13 07:41] LABS: ABNORMAL IP MESSAGE 1; HEMATOCRIT 28.4 % (42.0-52.0); HEMOGLOBIN 9.3 g/dl (14.0-18.0); LYMPHOCYTES # 0.4 10^3/ul (0.8-2.9); LYMPHOCYTES % 7.1 % (15.0-51.0); MEAN CORPUSCULAR HEMOGLOBIN 29.7 pg (29.0-33.0); MEAN CORPUSCULAR HGB CONC 32.7 g/dl (32.0-37.0); MEAN CORPUSCULAR VOLUME 90.7 fl (82.0-101.0); MONOCYTE # 0.2 10^3/ul (0.3-0.9); MONOCYTES % 3.2 % (0.0-11.0); NEUTROPHIL # 5.3 10^3/ul (1.6-7.5); NEUTROPHILS % 89.2 % (39.0-77.0); NUCLEATED RED BLOOD CELLS% 0.3 /100WBC (0.0-0.0); PLATELET COUNT 339 10^3/UL (140-415); POSITIVE DIFF @See below; RED BLOOD COUNT 3.13 10^6/ul (4.70-6.10)
[2017-08-13 08:12] LABS: ALBUMIN 2.5 g/dl (3.3-4.9); ALBUMIN/GLOBULIN RATIO 0.78; BILIRUBIN,INDIRECT 0.2 mg/dl (0-1.1); BILIRUBIN,TOTAL 0.2 mg/dl (0.2-1.3); CALCIUM 8.3 mg/dl (8.4-10.2); CREATININE 1.51 mg/dl (0.61-1.24); MAGNESIUM 1.8 mg/dl (1.7-2.5); POTASSIUM 3.8 mmol/L (3.5-5.1); TOTAL PROTEIN 5.7 g/dl (6.1-8.1)
[2017-08-13] MEDS: CLOPIDOGREL 75 MG TAB NGT SCH (09:15)
[2017-08-13] MEDS: FERROUS SULFATE (EC) 325 MG TAB PO SCH (09:16)
[2017-08-13] MEDS: FAMOTIDINE 20 MG TAB PO SCH ×2 (09:16→21:49)
[2017-08-13] MEDS: ASPIRIN (EC) 81 MG TAB PO SCH (09:16)
[2017-08-13] MEDS: DOCUSATE SODIUM 100 MG CAP PO SCH ×2 (09:16→21:49)
--- NOTE | 2017-08-13 09:36 | PN ---
DATE: 08/13/2017 SUBJECTIVE: The patient is stable. No events overnight. OBJECTIVE: VITAL SIGNS: Blood pressure is 149/78, pulse 72, respiration 18. HEENT: Head is normocephalic. NECK: Supple. HEART: Regular rate. LUNGS: Show diminished breath sounds at the base. ABDOMEN: Soft, nontender to palpation without rebound or guarding. EXTREMITIES: Negative for clubbing, cyanosis, no edema. DERMATOLOGIC: No rashes. MUSCULOSKELETAL: No joint effusions. NEUROLOGIC: No change in exam. MEDICATIONS: The patient's medications have been reviewed. LABORATORY DATA: Shows sodium 134, potassium 3.8, BUN 37, creatinine 1.51. White count 6.9, hemogl obin 9.3, hematocrit 28.4, platelet count 339. ASSESSMENT AND PLAN: 1. Nonoliguric acute kidney injury on top of chronic kidney disease with previous baseline creatini ne 1.2 mg/dL. Etiology of acute kidney injury was multifactorial secondary to contrast-induced neph ropathy, acute tubular necrosis. Renal function appears to be improving as the patient is entering possible maintenance and/or recovery phase of acute tubular necrosis. At this point, we will contin ue current treatment plan, supportive care, renally dose all medications. 2. Anemia. Monitor hemoglobin and hematocrit levels. 3. Mineral bone disease. Monitor calcium and phosphorus levels. 4. Metabolic acidosis secondary to acute kidney injury, improved. 5. Hypomagnesemia, improved. Continue to monitor and replete as needed. 6. Acute congestive heart failure exacerbation, status post cardiogenic shock. Continue medical ma nagement. 7. [id number] elevation myocardial infarction, status post percutaneous coronary intervention. Continue current treatment. 8. Dyslipidemia. Continue Lipitor. 9. Respiratory stridor. Continue steroids. Dictated By: LIZET TRIPLETT/ROXANNE Conf#: [id number] DID#: [id number]
[2017-08-13] MEDS: ALBUTEROL/IPRATROPIUM (NEB) 3 ML AMP HHN SCH ×3 (09:41→20:44)
--- NOTE | 2017-08-13 10:16 | PN ---
Date/Time of Note Date/Time of Note DATE: 08/13/17 TIME: 10:13 Assessment/Plan VTE Prophylaxis VTE Prophylaxis Intervention: SCD's Lines/Catheters IV Catheter Type (from Nrsg): PICC Line Central line still needed: Yes Urinary Cath still in place: Yes Reason Cath still needed: urinary retention Assessment/Plan Chief Complaint/Hosp Course Assessment/Plan: 87 yo M without known hx of cardiopulmonary disease presented with weakness to clinic, found with acute inferior STEMI, S/P emergent thrombectomy/ PCI RCA (using FEDERICO) with subsequent cardiogenic shock requiring dopamine drip to maintain MAPs, now resolving, off pressors presently. 1. Acute inferior STEMI - S/P emergent thrombectomy/ PCI RCA (using FEDERICO). -Continue current cardiac medications, aspirin, Plavix now, Lipitor, follow- up cardiology recommendations 2. Cardiogenic shock - resolved - anderson cultured 11.3 for hypotension though suspect 2/2 STEMI, status post treatment with dopamine, now blood pressure stable, off pressors - monitor for now 3. s/p recent bacteremia -white count normal, blood cultures this admission negative for growth - monitor for now for any fevers or leukocytosis 4. dyslipidemia - on Lipitor 5. gout: Holding allopurinol secondary to MARCOS -Because of continued toe possible gout pain, continue steroids for now 6. Low magnesium: Repleted, stable now, monitor 7. Stridor, mild shortness of breath: on Solumedrol -however shortness of breath was worsening this morning, CT scan neck and chest did show some anatomical narrowing of the trachea and respiratory system, otherwise no acute abnormalities. -Given symptoms this morning, will check chest x-ray and ABG. - Continue duo nebs, follow-up pulmonary recommendations 8. MARCOS: Creatinine still elevated but slowly trending down now -Monitor creatinine, follow renal recommendations. Problems: Subjective 24 Hr Interval Summary Free Text/Dictation Out of ICU now, however patient had some increased shortness of breath or nausea vomiting symptoms this morning. Partially relieved with epinephrine and DuoNeb. Seen by ENT yesterday. CT chest and neck performed yesterday as well. Exam/Review of Systems Vital Signs Vitals Vital Signs Date Time Temp Pulse Resp B/P Pulse Ox O2 Delivery O2 Flow Rate FiO2 08/13/17 09:42 77 24 96 21 08/13/17 07:14 98.0 149/78 08/12/17 18:00 Room Air 08/10/17 17:25 2.0 Intake and Output 08/12/17 08/12/17 08/13/17 15:00 23:00 07:00 Intake Total 590 ml 400 ml 360 ml Output Total 425 ml 440 ml 450 ml Balance 165 ml -40 ml -90 ml Exam nad, alert Pupils equal round reactive to light, extra ocular muscles intact Neck supple lungs slightly distant breath sounds, no wheezes or crackles heard bilaterally no mrg abd soft, NT, ND No lower exam edema bilaterally No focal deficits Results Result Diagram: 08/13/1739 08/13/17638 Results 24 hrs Laboratory Tests Test 08/13/17 06:39 White Blood Count 6.0 Red Blood Count 3.13 L Hemoglobin 9.3 L Hematocrit 28.4 L Mean Corpuscular Volume 90.7 Mean Corpuscular Hemoglobin 29.7 Mean Corpuscular Hemoglobin Concent 32.7 Red Cell Distribution Width 15.0 H Platelet Count 339 Mean Platelet Volume 11.0 H Neutrophils % 89.2 H Lymphocytes % 7.1 L Monocytes % 3.2 Eosinophils % 0.0 Basophils % 0.0 Nucleated Red Blood Cells % 0.3 H Neutrophils # 5.3 Lymphocytes # 0.4 L Monocytes # 0.2 L Eosinophils # 0.0 Basophils # 0.0 Nucleated Red Blood Cells # 0.0 Sodium Level 134 L Potassium Level 3.8 Chloride Level 106 Carbon Dioxide Level 21 Anion Gap 11 Blood Urea Nitrogen 37 H Creatinine 1.51 H Glucose Level 115 Calcium Level 8.3 L Magnesium Level 1.8 Total Bilirubin 0.2 Direct Bilirubin 0.00 Indirect Bilirubin 0.2 Aspartate Amino Transf (AST/SGOT) 34 Alanine Aminotransferase (ALT/SGPT) 42 Alkaline Phosphatase 69 B-Type Natriuretic Peptide 32138 H Total Protein 5.7 L Albumin 2.5 L Globulin 3.20 Albumin/Globulin Ratio 0.78 Medications Medications Current Medications Ondansetron HCl (Zofran Tab) 4 mg Q6H PRN PO NAUSEA AND/OR VOMITING; Start 08/06/17 at 12:00 Ondansetron HCl (Zofran Inj) 4 mg Q6H PRN IV NAUSEA AND/OR VOMITING Last administered on 08/13/17t 09:59; Admin Dose 4 MG; Start 08/06/17 at 12:00 Metoclopramide HCl (Reglan) 10 mg Q6H PRN IV NAUSEA AND/OR VOMITING; Start 08/06/17 at 12:00 Acetaminophen (Tylenol Liquid) 650 mg Q6H PRN PO PAIN LEVEL 1-3 OR FEVER; Start 08/06/17 at 12:00 Acetaminophen (Tylenol Tab) 650 mg Q6H PRN PO PAIN LEVEL 1-3 OR FEVER Last administered on 08/10/17 15:48; Admin Dose 650 MG; Start 08/06/17 at 12:00 Acetaminophen/ Hydrocodone Bitart ([place] (5/325)) 1 tab Q6H PRN PO PAIN LEVEL 4 -6; Start 08/06/17 at 12:00 Docusate Sodium (Colace) 100 mg Q12H PRN PO CONSTIPATION; Start 08/06/17 at 12: 00 Magnesium Hydroxide (Milk Of Mag) 30 ml DAILY PRN PO CONSTIPATION; Start at 12:00 Bisacodyl (Dulcolax) 5 mg DAILY PRN PO CONSTIPATION; Start 08/06/17 at 12:00 Ferrous Sulfate (Ferrous Sulfate (Ec)) 325 mg DAILY PO Last administered on 09:16; Admin Dose 325 MG; Start 08/07/17 at 09:00 Aspirin (Halfprin) 81 mg DAILY PO Last administered on 08/13/17 09:16; Admin Dose 81 MG; Start 08/07/17 at 09:00 Oxycodone/ Acetaminophen (Percocet (5/ 325)) 1 tab Q4H PRN PO REPORTED NON- CARDIAC PAIN 4-7; Start 08/06/17 at 12:00 Morphine Sulfate (morphine) 1 mg Q1H PRN IV PAIN NOT RELIEVED BY OTHERS Last administered on 08/09/17 04:43; Admin Dose 1 MG; Start 08/06/17 at 12:00 Docusate Sodium (Colace) 100 mg BID PO Last administered on 08/13/17 09:16; Admin Dose 100 MG; Start 08/06/17 at 21:00 Atorvastatin Calcium (Lipitor) 80 mg DAILY@21 PO Last administered on 20:57; Admin Dose 80 MG; Start 08/06/17 at 21:00 Carvedilol (Coreg) 3.125 mg BID PO Last administered on 08/13/17 09:16; Admin Dose 3.125 MG; Start 08/09/17 at 21:00 Methylprednisolone Sodium Succinate (Solu-Medrol) 60 mg Q6 IV Last administered on 08/13/17 06:30; Admin Dose 60 MG; Start 08/11/17 at 12:00 Clopidogrel Bisulfate (plaVIX) 75 mg DAILY NGT Last administered on 08/13/17 09:15; Admin Dose 75 MG; Start 08/12/17 at 09:00 Famotidine (Pepcid) 20 mg BID PO Last administered on 08/13/17 09:16; Admin Dose 20 MG; Start 08/12/17 at 21:00 MINA CALI 10, 2017 10:16
--- NOTE | 2017-08-13 10:23 | RADRPT ---
PROCEDURE: XR Chest. CLINICAL INDICATION: Shortness of breath. TECHNIQUE: Single frontal view of the chest was obtained. COMPARISON: 03/05/[address] 08/12/2017. FINDINGS: There is a new left-sided PICC with tip at the cavoatrial junction. The cardiomediastinal silhouette demonstrates enlargement of the cardiac silhouette. There are aorti c calcifications. Lung volumes are shallow with bibasilar opacities and a small left pleural effusion. There is a calc ified granuloma in the right upper lobe. No definite pneumothorax. No acute osseous abnormality. IMPRESSION: 1. New left-sided PICC with tip at the cavoatrial junction. 2. Cardiomegaly with shallow lung volumes and bibasilar opacities, which could represent atelectasis . Small left pleural effusion. RPTAT: BB Kyle uZniga Physician Date Time Electronically viewed and signed by Kyle Zuniga Physician on 08/13/2017 10:22 /
[2017-08-13 10:44] LABS: AADO2 Arterial 43.7 mmHg (7.0-24.0); Arterial COHb 0.2 % (0.0-3.0); Arterial Fraction of Oxyhgb 92.5 % (93.0-99.0); Arterial MetHb 0.4 % (0.0-1.5); Arterial Total Hemglobin 10.9 g/dl (12.0-18.0); MODE ROOM AIR
--- NOTE | 2017-08-13 13:01 | CONS ---
Date/Time of Note Date/Time of Note DATE: 08/13/17 TIME: 12:57 Consult Date/Type/Reason Admit Date/Time Aug 06, 2017 at 10:21 Initial Consult Date 08/06/17 Type of Consultation: Pulmonary Ordering Provider: LAVON HUNTER MD Subjective Patient stable this morning. Still has mild exertional dyspnea and occasional wheezing. Occasional accessory muscle use also. Objective Vital Signs Date Time Temp Pulse Resp B/P Pulse Ox O2 Delivery O2 Flow Rate FiO2 08/13/17 12:00 64 08/13/17 12:00 Nasal Cannula 3.0 08/13/17 11:13 98.0 16 135/63 96 08/13/17 09:42 21 Intake and Output 08/12/17 08/12/17 08/13/17 14:59 22:59 06:59 Intake Total 590 ml 400 ml 360 ml Output Total 390 ml 475 ml 450 ml Balance 200 ml -75 ml -90 ml Exam PHYSICAL EXAMINATION: GENERAL: Well-nourished, well-developed gentleman, mild audible upper airway wheezing. VITAL SIGNS: NECK: Supple. No JVD or lymphadenopathy. CARDIAC: S1, S2, no added sounds or murmurs. CHEST: Diminished air entry bilaterally. ABDOMEN: Soft, nontender. No guarding or rebound. EXTREMITIES: No cyanosis, clubbing, or edema. NEUROLOGIC: Generalized weakness. Results/Medications Result Diagram: 08/13/17 0639 08/13/[address] neck and chest essentially unremarkable Laboratory Tests Test 08/13/17 06:39 08/13/17 09:53 White Blood Count 6.0 Red Blood Count 3.13 L Hemoglobin 9.3 L Hematocrit 28.4 L Mean Corpuscular Volume 90.7 Mean Corpuscular Hemoglobin 29.7 Mean Corpuscular Hemoglobin Concent 32.7 Red Cell Distribution Width 15.0 H Platelet Count 339 Mean Platelet Volume 11.0 H Neutrophils % 89.2 H Lymphocytes % 7.1 L Monocytes % 3.2 Eosinophils % 0.0 Basophils % 0.0 Nucleated Red Blood Cells % 0.3 H Neutrophils # 5.3 Lymphocytes # 0.4 L Monocytes # 0.2 L Eosinophils # 0.0 Basophils # 0.0 Nucleated Red Blood Cells # 0.0 Sodium Level 134 L Potassium Level 3.8 Chloride Level 106 Carbon Dioxide Level 21 Anion Gap 11 Blood Urea Nitrogen 37 H Creatinine 1.51 H Glucose Level 115 Calcium Level 8.3 L Magnesium Level 1.8 Total Bilirubin 0.2 Direct Bilirubin 0.00 Indirect Bilirubin 0.2 Aspartate Amino Transf (AST/SGOT) 34 Alanine Aminotransferase (ALT/SGPT) 42 Alkaline Phosphatase 69 B-Type Natriuretic Peptide 59464 H Total Protein 5.7 L Albumin 2.5 L Globulin 3.20 Albumin/Globulin Ratio 0.78 Blood Gas Specimen Source Blood arterial Arterial Blood Date Drawn 08/13/2017 10:30:40 AM Arterial Blood pH (Temp corrected) 7.374 Arterial Blood pCO2 (Temp correct) 28.0 L Arterial Blood pO2 (Temp corrected) 72.5 L Arterial Blood HCO3 16.0 L Arterial Blood Base Excess -8.0 L Arterial Blood Oxygen Saturation 93.1 L Mike Test N/A Arterial Blood Gas Puncture Site Right Brachial Arterial Blood Carboxyhemoglobin 0.2 Arterial Blood Methemoglobin 0.4 Blood Gas A-a O2 Differential 43.7 H Oxyhemoglobin Percent 92.5 L Total Hemoglobin 10.9 L Blood Gas Temperature 37.0 Blood Gas Modality ROOM AIR FiO2 21.0 Blood Gas Notified Whom JLD Blood Gas Notified Time 08/13/2017 10:44:25 AM Medications Current Medications Ondansetron HCl (Zofran Tab) 4 mg Q6H PRN PO NAUSEA AND/OR VOMITING; Start 08/06/17 at 12:00 Ondansetron HCl (Zofran Inj) 4 mg Q6H PRN IV NAUSEA AND/OR VOMITING Last administered on 08/13/17 09:59; Admin Dose 4 MG; Start 08/06/17 at 12:00 Metoclopramide HCl (Reglan) 10 mg Q6H PRN IV NAUSEA AND/OR VOMITING; Start 08/06/17 at 12:00 Acetaminophen (Tylenol Liquid) 650 mg Q6H PRN PO PAIN LEVEL 1-3 OR FEVER; Start 08/06/17 at 12:00 Acetaminophen (Tylenol Tab) 650 mg Q6H PRN PO PAIN LEVEL 1-3 OR FEVER Last administered on 08/10/17 15:48; Admin Dose 650 MG; Start 08/06/17 at 12:00 Acetaminophen/ Hydrocodone Bitart ([place] (5/325)) 1 tab Q6H PRN PO PAIN LEVEL 4 -6; Start 08/06/17 at 12:00 Docusate Sodium (Colace) 100 mg Q12H PRN PO CONSTIPATION; Start 08/06/17 at 12: 00 Magnesium Hydroxide (Milk Of Mag) 30 ml DAILY PRN PO CONSTIPATION; Start at 12:00 Bisacodyl (Dulcolax) 5 mg DAILY PRN PO CONSTIPATION; Start 08/06/17 at 12:00 Ferrous Sulfate (Ferrous Sulfate (Ec)) 325 mg DAILY PO Last administered on 09:16; Admin Dose 325 MG; Start 08/07/17 at 09:00 Aspirin (Halfprin) 81 mg DAILY PO Last administered on 08/13/17 09:16; Admin Dose 81 MG; Start 08/07/17 at 09:00 Oxycodone/ Acetaminophen (Percocet (5/ 325)) 1 tab Q4H PRN PO REPORTED NON- CARDIAC PAIN 4-7; Start 08/06/17 at 12:00 Morphine Sulfate (morphine) 1 mg Q1H PRN IV PAIN NOT RELIEVED BY OTHERS Last administered on 08/09/17 04:43; Admin Dose 1 MG; Start 08/06/17 at 12:00 Docusate Sodium (Colace) 100 mg BID PO Last administered on 08/13/17 09:16; Admin Dose 100 MG; Start 08/06/17 at 21:00 Atorvastatin Calcium (Lipitor) 80 mg DAILY@21 PO Last administered on 20:57; Admin Dose 80 MG; Start 08/06/17 at 21:00 Carvedilol (Coreg) 3.125 mg BID PO Last administered on 08/13/17 09:16; Admin Dose 3.125 MG; Start 08/09/17 at 21:00 Methylprednisolone Sodium Succinate (Solu-Medrol) 60 mg Q6 IV Last administered on 08/13/17 12:11; Admin Dose 60 MG; Start 08/11/17 at 12:00 Clopidogrel Bisulfate (plaVIX) 75 mg DAILY NGT Last administered on 08/13/17 09:15; Admin Dose 75 MG; Start 08/12/17 at 09:00 Famotidine (Pepcid) 20 mg BID PO Last administered on 08/13/17 09:16; Admin Dose 20 MG; Start 08/12/17 at 21:00 Assessment/Plan Chief Complaint/Hosp Course IMPRESSION AND PLAN: 1. Stridor, unclear etiology. Appreciate ENT evaluation CT neck and chest nondiagnostic. 2. Possible aspiration versus tracheobronchitis. 3. ST elevation MS status post PCI. Plan 1. Cardiac recommendations. 2. Bronchodilators 3. Gentle diuresis as tolerated. 4. Steroid trial. 5. ENT recommendations. Problems: CHUCK PANCHAL MD, [facility] Aug 13, 2017 13:01
[2017-08-13] MEDS: FUROSEMIDE 40 MG INJ IV SCH (13:42)
--- NOTE | 2017-08-13 14:58 | RADRPT ---
PROCEDURE: US bilateral lower extremity veins. CLINICAL INDICATION: Bilateral leg pain and swelling. TECHNIQUE: Multiple longitudinal and transverse images of the bilateral lower extremity veins were obtained with pena scale and color Doppler imaging. The common femoral vein, femoral vein, and popl iteal vein were evaluated. 2D grayscale measurements with compression sonography, color Doppler, and pulsed Doppler with augmentation. COMPARISON: No prior studies are available for comparison. FINDINGS: The bilateral common femoral, femoral and popliteal veins are normally compressible throughout. Col or flow demonstrates normal filling of the vessels. Normal waveforms are visualized and there is no rmal response to augmentation. IMPRESSION: 1. No evidence of deep vein thrombosis involving either lower extremity. RPTAT: QQ .Elliott Cao MD, MD Date Time Electronically viewed and signed by .Elliott Cao MD, on 08/13/2017 14:58 .R/
--- NOTE | 2017-08-13 16:21 | CONS ---
Date/Time of Note Date/Time of Note DATE: 08/13/17 TIME: 16:17 Consult Date/Type/Reason Admit Date/Time Aug 06, 2017 at 10:21 Initial Consult Date 08/06/17 Type of Consultation: card Ordering Provider: LAVON HUNTER MD Subjective cardiology follow up note/ critical care note: S: D/ W staff and rhythm was reviewed. d/w daughter. pt remains in NSR his BP is stable now he has had occasional sob and wheezing per RN report he denies any cp or pressure to me no groin pain O: General: no acute distress HEENT: NC/AT. pupils are equal. round. NECK: NO JVD. mild stridor. CV: RRR. systolic murmur; no gallop or rubs. PULM: no wheezing or rhonchi in the lung. GI: SOFT, NT, ND, no rebound or guarding Extremity: trace B/L LE edema. no clubbing. neuro: awake and alert,and oriented. Psych: calm and pleasant rectal: deferred : normal male vascular R fem sheath removed now with no hematoma or bleeding Echo reviewed personally: 1. Lower limits of normal systolic function. Normal left ventricular cavity size. Mild concentric left ventricular hypertrophy. Ejection fraction is visually estimated at 50 %. Tissue Doppler/Mitral Doppler indices are consistent with impaired relaxation (Stage I diastolic dysfunction). These segments of the LV are hypokinetic inferior mid segment and inferior apex segment. 2. Normal appearance of the mitral valve. Mild mitral annular calcification. Trace mitral regurgitation. 3. No significant aortic stenosis or insufficiency. Aortic cusps appear mildly calcified. 4. Normal appearance of the tricuspid valve. Unable to obtain RVSP due to minimal presence of tricuspid regurgitation. CXR reviewed. Objective Vital Signs Date Time Temp Pulse Resp B/P Pulse Ox O2 Delivery O2 Flow Rate FiO2 08/13/17 15:21 98.4 89 24 131/79 95 08/13/17 14:03 Nasal Cannula 3.0 08/13/17 09:42 21 Intake and Output 08/12/17 08/12/17 08/13/17 14:59 22:59 06:59 Intake Total 590 ml 400 ml 360 ml Output Total 390 ml 475 ml 450 ml Balance 200 ml -75 ml -90 ml Results/Medications Result Diagram: 08/13/17 0639 08/13/17 0639 Results 24 hrs Laboratory Tests Test 08/13/17 06:39 08/13/17 09:53 White Blood Count 6.0 Red Blood Count 3.13 L Hemoglobin 9.3 L Hematocrit 28.4 L Mean Corpuscular Volume 90.7 Mean Corpuscular Hemoglobin 29.7 Mean Corpuscular Hemoglobin Concent 32.7 Red Cell Distribution Width 15.0 H Platelet Count 339 Mean Platelet Volume 11.0 H Neutrophils % 89.2 H Lymphocytes % 7.1 L Monocytes % 3.2 Eosinophils % 0.0 Basophils % 0.0 Nucleated Red Blood Cells % 0.3 H Neutrophils # 5.3 Lymphocytes # 0.4 L Monocytes # 0.2 L Eosinophils # 0.0 Basophils # 0.0 Nucleated Red Blood Cells # 0.0 Sodium Level 134 L Potassium Level 3.8 Chloride Level 106 Carbon Dioxide Level 21 Anion Gap 11 Blood Urea Nitrogen 37 H Creatinine 1.51 H Glucose Level 115 Calcium Level 8.3 L Magnesium Level 1.8 Total Bilirubin 0.2 Direct Bilirubin 0.00 Indirect Bilirubin 0.2 Aspartate Amino Transf (AST/SGOT) 34 Alanine Aminotransferase (ALT/SGPT) 42 Alkaline Phosphatase 69 B-Type Natriuretic Peptide 23405 H Total Protein 5.7 L Albumin 2.5 L Globulin 3.20 Albumin/Globulin Ratio 0.78 Blood Gas Specimen Source Blood arterial Arterial Blood Date Drawn 08/13/2017 10:30:40 AM Arterial Blood pH (Temp corrected) 7.374 Arterial Blood pCO2 (Temp correct) 28.0 L Arterial Blood pO2 (Temp corrected) 72.5 L Arterial Blood HCO3 16.0 L Arterial Blood Base Excess -8.0 L Arterial Blood Oxygen Saturation 93.1 L Mike Test N/A Arterial Blood Gas Puncture Site Right Brachial Arterial Blood Carboxyhemoglobin 0.2 Arterial Blood Methemoglobin 0.4 Blood Gas A-a O2 Differential 43.7 H Oxyhemoglobin Percent 92.5 L Total Hemoglobin 10.9 L Blood Gas Temperature 37.0 Blood Gas Modality ROOM AIR FiO2 21.0 Blood Gas Notified Whom GINNAD Blood Gas Notified Time 08/13/2017 10:44:25 AM Medications Current Medications Ondansetron HCl (Zofran Tab) 4 mg Q6H PRN PO NAUSEA AND/OR VOMITING; Start 08/06/17 at 12:00 Ondansetron HCl (Zofran Inj) 4 mg Q6H PRN IV NAUSEA AND/OR VOMITING Last administered on 08/13/17 09:59; Admin Dose 4 MG; Start 08/06/17 at 12:00 Metoclopramide HCl (Reglan) 10 mg Q6H PRN IV NAUSEA AND/OR VOMITING; Start 08/06/17 at 12:00 Acetaminophen (Tylenol Liquid) 650 mg Q6H PRN PO PAIN LEVEL 1-3 OR FEVER; Start 08/06/17 at 12:00 Acetaminophen (Tylenol Tab) 650 mg Q6H PRN PO PAIN LEVEL 1-3 OR FEVER Last administered on 08/10/17 15:48; Admin Dose 650 MG; Start 08/06/17 at 12:00 Acetaminophen/ Hydrocodone Bitart ([place] (5/325)) 1 tab Q6H PRN PO PAIN LEVEL 4 -6; Start 08/06/17 at 12:00 Docusate Sodium (Colace) 100 mg Q12H PRN PO CONSTIPATION; Start 08/06/17 at 12: 00 Magnesium Hydroxide (Milk Of Mag) 30 ml DAILY PRN PO CONSTIPATION; Start at 12:00 Bisacodyl (Dulcolax) 5 mg DAILY PRN PO CONSTIPATION; Start 08/06/17 at 12:00 Ferrous Sulfate (Ferrous Sulfate (Ec)) 325 mg DAILY PO Last administered on 09:16; Admin Dose 325 MG; Start 08/07/17 at 09:00 Aspirin (Halfprin) 81 mg DAILY PO Last administered on 08/13/17 09:16; Admin Dose 81 MG; Start 08/07/17 at 09:00 Oxycodone/ Acetaminophen (Percocet (5/ 325)) 1 tab Q4H PRN PO REPORTED NON- CARDIAC PAIN 4-7; Start 08/06/17 at 12:00 Morphine Sulfate (morphine) 1 mg Q1H PRN IV PAIN NOT RELIEVED BY OTHERS Last administered on 08/09/17 04:43; Admin Dose 1 MG; Start 08/06/17 at 12:00 Docusate Sodium (Colace) 100 mg BID PO Last administered on 08/13/17 09:16; Admin Dose 100 MG; Start 08/06/17 at 21:00 Atorvastatin Calcium (Lipitor) 80 mg DAILY@21 PO Last administered on 20:57; Admin Dose 80 MG; Start 08/06/17 at 21:00 Carvedilol (Coreg) 3.125 mg BID PO Last administered on 08/13/17 09:16; Admin Dose 3.125 MG; Start 08/09/17 at 21:00 Clopidogrel Bisulfate (plaVIX) 75 mg DAILY NGT Last administered on 08/13/17 09:15; Admin Dose 75 MG; Start 08/12/17 at 09:00 Famotidine (Pepcid) 20 mg BID PO Last administered on 08/13/17 09:16; Admin Dose 20 MG; Start 08/12/17 at 21:00 Methylprednisolone Sodium Succinate (Solu-Medrol) 60 mg Q12 IV ; Start at 21:00 Furosemide (Lasix) 40 mg DAILY@06 IV Last administered on 08/13/17 13:42; Admin Dose 40 MG; Start 08/13/17 at 13:00 Assessment/Plan Chief Complaint/Hosp Course 1. Acute inferior STEMI 2/ S/P emergent thrombectomy/ PCI RCA (using FEDERICO) 3. s/p Cardiogenic shock: BP has improved now 4. s/p recent bacteremia 5. dyslipidemia 6/ abnormal ECG due to above \7. severe and worsening anemia 8/ MARCOS 9. Hypo Mg. : 10. resp failure/ stridors: pulm input is appreciated. improved but not resolved yet. 11. anemia; stable with negative Guiac stool Rec: cont ASA and plavix. I have changed Brilinta to plavix due to concerns about possibly allergy to brilinta which was the new medication for him. ABX PER IM. statin transfusion prn replace Mg prn will cont low dose coreg f/u ENT consult rec f/u renal rec. no further cardiac work up at this time. I will f/u prn. pt to follow up with me in 2 weeks with the list of his medications for review. plavix prescription was given to daughter. Thank you for his referral. I will continue to follow along with you as needed base. . HAYDEN WAGNER MD [facility] Problems: HAYDEN WAGNER MD Aug 13, 2017 16:21
[2017-08-13] MEDS ORDERED: MAGNESIUM SULFATE 2 GM/50 ML 50 ML IVPB ONE (16:30)
[2017-08-13 21:27] LABS: AADO2 Arterial 78.4 mmHg (7.0-24.0); Arterial Base Excess -5.2 mmol/L (-3.0-3); Arterial COHb 0.3 % (0.0-3.0); Arterial Fraction of Oxyhgb 96.7 % (93.0-99.0); Arterial HCO3 18.4 mmol/L (22.0-26.0); Arterial MetHb 0 % (0.0-1.5); Arterial Total Hemglobin 10.9 g/dl (12.0-18.0); MODE NASAL CANNULA
[2017-08-13] MEDS: ATORVASTATIN 80 MG TAB PO SCH (21:49)
[2017-08-14] VITALS (13 sets, daily range): BP systolic 139–167; BP diastolic 67–82; PULSE 59–75; RESP 18–20
[2017-08-14] MEDS: ALBUTEROL/IPRATROPIUM (NEB) 3 ML AMP HHN SCH ×4 (01:16→20:31)
[2017-08-14] MEDS: FUROSEMIDE 40 MG INJ IV SCH (06:12)
[2017-08-14 06:46] LABS: HEMATOCRIT 29.5 % (42.0-52.0); HEMOGLOBIN 9.7 g/dl (14.0-18.0); LYMPHOCYTES # 0.6 10^3/ul (0.8-2.9); LYMPHOCYTES % 10.1 % (15.0-51.0); MEAN CORPUSCULAR HEMOGLOBIN 29.6 pg (29.0-33.0); MEAN CORPUSCULAR HGB CONC 32.9 g/dl (32.0-37.0); MEAN CORPUSCULAR VOLUME 89.9 fl (82.0-101.0); MEAN PLATELET VOLUME 10.8 fl (7.4-10.4); MONOCYTE # 0.3 10^3/ul (0.3-0.9); MONOCYTES % 4.6 % (0.0-11.0); NEUTROPHIL # 5.2 10^3/ul (1.6-7.5); NEUTROPHILS % 84.5 % (39.0-77.0); PLATELET COUNT 342 10^3/UL (140-415); RED BLOOD COUNT 3.28 10^6/ul (4.70-6.10); RED CELL DISTRIBUTION WIDTH 14.6 % (11.5-14.5); WHITE BLOOD COUNT 6.1 10^3/ul (4.8-10.8)
[2017-08-14 07:26] LABS: CALCIUM 8.1 mg/dl (8.4-10.2); CREATININE 1.64 mg/dl (0.61-1.24); POTASSIUM 3.5 mmol/L (3.5-5.1)
[2017-08-14] MEDS: CLOPIDOGREL 75 MG TAB NGT SCH (09:13)
[2017-08-14] MEDS: DOCUSATE SODIUM 100 MG CAP PO SCH ×2 (09:13→20:46)
[2017-08-14] MEDS: FAMOTIDINE 20 MG TAB PO SCH ×2 (09:13→20:47)
[2017-08-14] MEDS: FERROUS SULFATE (EC) 325 MG TAB PO SCH (09:13)
[2017-08-14] MEDS: ASPIRIN (EC) 81 MG TAB PO SCH (09:13)
[2017-08-14] MEDS: METHYLPREDNISOLONE 125 MG INJ IV SCH ×2 (09:14→20:46)
--- NOTE | 2017-08-14 09:56 | CONS ---
Date/Time of Note Date/Time of Note DATE: 08/14/17 TIME: 09:55 Consult Date/Type/Reason Admit Date/Time Aug 06, 2017 at 10:21 Initial Consult Date 08/06/17 Type of Consultation: neph Ordering Provider: LAVON HUNTER MD Subjective The patient is stable. No events overnight. continues good uo. poc reviewed with dr. castillo. OBJECTIVE: HEENT: Head is normocephalic. NECK: Supple. HEART: Regular rate. LUNGS: Show diminished breath sounds at the base. ABDOMEN: Soft, nontender to palpation without rebound or guarding. EXTREMITIES: Negative for clubbing, cyanosis, no edema. DERMATOLOGIC: No rashes. MUSCULOSKELETAL: No joint effusions. NEUROLOGIC: No change in exam. MEDICATIONS: The patient's medications have been reviewed. Objective Vital Signs Date Time Temp Pulse Resp B/P Pulse Ox O2 Delivery O2 Flow Rate FiO2 08/14/17 08:26 3.0 32 08/14/17 08:25 66 20 98 Nasal Cannula 08/14/17 07:40 97.4 154/79 Intake and Output 08/13/17 08/13/17 08/14/17 15:00 23:00 07:00 Intake Total 760 ml 120 ml Output Total 365 ml 435 ml 2000 ml Balance -365 ml 325 ml -1880 ml Results/Medications Result Diagram: 08/14/17 0610 08/14/17 0610 Results 24 hrs Laboratory Tests Test 08/13/17 21:00 08/14/17 06:10 Blood Gas Specimen Source Blood arterial Arterial Blood Date Drawn 08/13/2017 9:15:29 PM Arterial Blood pH (Temp corrected) 7.408 Arterial Blood pCO2 (Temp correct) 29.9 L Arterial Blood pO2 (Temp corrected) 100.4 H Arterial Blood HCO3 18.4 L Arterial Blood Base Excess -5.2 L Arterial Blood Oxygen Saturation 97.0 Mike Test N/A Arterial Blood Gas Puncture Site Right Brachial Arterial Blood Carboxyhemoglobin 0.3 Arterial Blood Methemoglobin 0 Blood Gas A-a O2 Differential 78.4 H Oxyhemoglobin Percent 96.7 Total Hemoglobin 10.9 L Blood Gas Temperature 37.0 Blood Gas Modality NASAL CANNULA FiO2 30.0 Blood Gas Notified Whom LW Blood Gas Notified Time 08/13/2017 9:27:08 PM White Blood Count 6.1 Red Blood Count 3.28 L Hemoglobin 9.7 L Hematocrit 29.5 L Mean Corpuscular Volume 89.9 Mean Corpuscular Hemoglobin 29.6 Mean Corpuscular Hemoglobin Concent 32.9 Red Cell Distribution Width 14.6 H Platelet Count 342 Mean Platelet Volume 10.8 H Neutrophils % 84.5 H Lymphocytes % 10.1 L Monocytes % 4.6 Eosinophils % 0.0 Basophils % 0.0 Nucleated Red Blood Cells % 0.0 Neutrophils # 5.2 Lymphocytes # 0.6 L Monocytes # 0.3 Eosinophils # 0.0 Basophils # 0.0 Nucleated Red Blood Cells # 0.0 Sodium Level 134 L Potassium Level 3.5 Chloride Level 103 Carbon Dioxide Level 22 Anion Gap 13 Blood Urea Nitrogen 41 H Creatinine 1.64 H Glucose Level 113 Calcium Level 8.1 L B-Type Natriuretic Peptide 58666 H Medications Current Medications Ondansetron HCl (Zofran Tab) 4 mg Q6H PRN PO NAUSEA AND/OR VOMITING; Start 08/06/17 at 12:00 Ondansetron HCl (Zofran Inj) 4 mg Q6H PRN IV NAUSEA AND/OR VOMITING Last administered on 08/13/17 09:59; Admin Dose 4 MG; Start 08/06/17 at 12:00 Metoclopramide HCl (Reglan) 10 mg Q6H PRN IV NAUSEA AND/OR VOMITING; Start 08/06/17 at 12:00 Acetaminophen (Tylenol Liquid) 650 mg Q6H PRN PO PAIN LEVEL 1-3 OR FEVER; Start 08/06/17 at 12:00 Acetaminophen (Tylenol Tab) 650 mg Q6H PRN PO PAIN LEVEL 1-3 OR FEVER Last administered on 08/10/17 15:48; Admin Dose 650 MG; Start 08/06/17 at 12:00 Acetaminophen/ Hydrocodone Bitart ([place] (5/325)) 1 tab Q6H PRN PO PAIN LEVEL 4 -6; Start 08/06/17 at 12:00 Docusate Sodium (Colace) 100 mg Q12H PRN PO CONSTIPATION; Start 08/06/17 at 12: 00 Magnesium Hydroxide (Milk Of Mag) 30 ml DAILY PRN PO CONSTIPATION; Start at 12:00 Bisacodyl (Dulcolax) 5 mg DAILY PRN PO CONSTIPATION; Start 08/06/17 at 12:00 Ferrous Sulfate (Ferrous Sulfate (Ec)) 325 mg DAILY PO Last administered on 09:13; Admin Dose 325 MG; Start 08/07/17 at 09:00 Aspirin (Halfprin) 81 mg DAILY PO Last administered on 08/14/17 09:13; Admin Dose 81 MG; Start 08/07/17 at 09:00 Oxycodone/ Acetaminophen (Percocet (5/ 325)) 1 tab Q4H PRN PO REPORTED NON- CARDIAC PAIN 4-7; Start 08/06/17 at 12:00 Morphine Sulfate (morphine) 1 mg Q1H PRN IV PAIN NOT RELIEVED BY OTHERS Last administered on 08/09/17 04:43; Admin Dose 1 MG; Start 08/06/17 at 12:00 Docusate Sodium (Colace) 100 mg BID PO Last administered on 08/14/17 09:13; Admin Dose 100 MG; Start 08/06/17 at 21:00 Atorvastatin Calcium (Lipitor) 80 mg DAILY@21 PO Last administered on 21:49; Admin Dose 80 MG; Start 08/06/17 at 21:00 Carvedilol (Coreg) 3.125 mg BID PO Last administered on 08/14/17 09:13; Admin Dose 3.125 MG; Start 08/09/17 at 21:00 Clopidogrel Bisulfate (plaVIX) 75 mg DAILY NGT Last administered on 08/14/17 09:13; Admin Dose 75 MG; Start 08/12/17 at 09:00 Famotidine (Pepcid) 20 mg BID PO Last administered on 08/14/17 09:13; Admin Dose 20 MG; Start 08/12/17 at 21:00 Methylprednisolone Sodium Succinate (Solu-Medrol) 60 mg Q12 IV Last administered on 08/14/17 09:14; Admin Dose 60 MG; Start 08/13/17 at 21:00 Furosemide (Lasix) 40 mg DAILY@06 IV Last administered on 08/14/17 06:12; Admin Dose 40 MG; Start 08/13/17 at 13:00 Assessment/Plan Chief Complaint/Hosp Course 1. Nonoliguric acute kidney injury on top of chronic kidney disease with previous baseline creatinine 1.2 mg/dL. Etiology of acute kidney injury was multifactorial secondary to contrast-induced nephropathy, acute tubular necrosis. Renal function appears to be improving as the patient is entering possible maintenance and/or recovery phase of acute tubular necrosis. At this point, we will continue current treatment plan, supportive care, renally dose all medications. All meds dosed ok. watch for diuretic phase of jyoti with electrolyte wasting. 2. Anemia. Monitor hemoglobin and hematocrit levels. 3. Mineral bone disease. Monitor calcium and phosphorus levels. 4. Metabolic acidosis secondary to acute kidney injury, improved. 5. Hypomagnesemia, improved. Continue to monitor and replete as needed. 6. Acute congestive heart failure exacerbation, status post cardiogenic shock. Continue medical management. 7. [id number] elevation myocardial infarction, status post percutaneous coronary intervention. Continue current treatment. 8. Dyslipidemia. Continue Lipitor. 9. Respiratory stridor. Continue steroids. Problems: KIARA MORTON MD Aug 14, 2017 09:56
--- NOTE | 2017-08-14 11:17 | PN ---
Date/Time of Note Date/Time of Note DATE: 08/14/17 TIME: 11:15 Assessment/Plan VTE Prophylaxis VTE Prophylaxis Intervention: SCD's Lines/Catheters IV Catheter Type (from Nrsg): PICC Line Central line still needed: Yes Urinary Cath still in place: Yes Reason Cath still needed: urinary retention Assessment/Plan Chief Complaint/Hosp Course Assessment/Plan: 87 yo M without known hx of cardiopulmonary disease presented with weakness to clinic, found with acute inferior STEMI, S/P emergent thrombectomy/ PCI RCA (using FEDERICO) with subsequent cardiogenic shock requiring dopamine drip to maintain MAPs, now resolving, off pressors presently. 1. Acute inferior STEMI - S/P emergent thrombectomy/ PCI RCA (using FEDERICO). -Continue current cardiac medications, aspirin, Plavix now, Lipitor, follow- up cardiology recommendations 2. Cardiogenic shock - resolved - anderson cultured 11.3 for hypotension though suspect 2/2 STEMI, status post treatment with dopamine, now blood pressure stable, off pressors - monitor for now 3. s/p recent bacteremia -white count normal, blood cultures this admission negative for growth - monitor for now for any fevers or leukocytosis 4. dyslipidemia - on Lipitor 5. gout: Holding allopurinol secondary to MARCOS -Because of continued toe possible gout pain, continue steroids for now 6. Low magnesium: Repleted, stable now, monitor 7. Stridor, mild shortness of breath: on Solumedrol which we are weaning down now - CT scan neck and chest did show some anatomical narrowing of the trachea and respiratory system, otherwise no acute abnormalities. - Continue duo nebs, steroids, follow-up pulmonary recommendations 8. MARCOS: Creatinine still elevated -Monitor creatinine, follow renal recommendations. Problems: Subjective 24 Hr Interval Summary Free Text/Dictation Patient with some wheezing last night, slightly improved this morning. Still gets short of breath when getting out of bed. Still on breathing treatments every 6 hours, ABG improved yesterday evening from the morning. Exam/Review of Systems Vital Signs Vitals Vital Signs Date Time Temp Pulse Resp B/P Pulse Ox O2 Delivery O2 Flow Rate FiO2 08/14/17 11:11 97.6 69 20 167/80 99 08/14/17 08:26 3.0 32 08/14/17 08:25 Nasal Cannula Intake and Output 08/13/17 08/13/17 08/14/17 15:00 23:00 07:00 Intake Total 760 ml 120 ml Output Total 365 ml 435 ml 2000 ml Balance -365 ml 325 ml -1880 ml Exam nad, alert Pupils equal round reactive to light, extra ocular muscles intact Neck supple lungs slightly distant breath sounds, no wheezes or crackles heard bilaterally no mrg abd soft, NT, ND No lower exam edema bilaterally No focal deficits Results Result Diagram: 08/14/17 0610 08/14/17 0610 Results 24 hrs Laboratory Tests Test 08/13/17 21:00 08/14/17 06:10 Blood Gas Specimen Source Blood arterial Arterial Blood Date Drawn 08/13/2017 9:15:29 PM Arterial Blood pH (Temp corrected) 7.408 Arterial Blood pCO2 (Temp correct) 29.9 L Arterial Blood pO2 (Temp corrected) 100.4 H Arterial Blood HCO3 18.4 L Arterial Blood Base Excess -5.2 L Arterial Blood Oxygen Saturation 97.0 Mike Test N/A Arterial Blood Gas Puncture Site Right Brachial Arterial Blood Carboxyhemoglobin 0.3 Arterial Blood Methemoglobin 0 Blood Gas A-a O2 Differential 78.4 H Oxyhemoglobin Percent 96.7 Total Hemoglobin 10.9 L Blood Gas Temperature 37.0 Blood Gas Modality NASAL CANNULA FiO2 30.0 Blood Gas Notified Whom LW Blood Gas Notified Time 08/13/2017 9:27:08 PM White Blood Count 6.1 Red Blood Count 3.28 L Hemoglobin 9.7 L Hematocrit 29.5 L Mean Corpuscular Volume 89.9 Mean Corpuscular Hemoglobin 29.6 Mean Corpuscular Hemoglobin Concent 32.9 Red Cell Distribution Width 14.6 H Platelet Count 342 Mean Platelet Volume 10.8 H Neutrophils % 84.5 H Lymphocytes % 10.1 L Monocytes % 4.6 Eosinophils % 0.0 Basophils % 0.0 Nucleated Red Blood Cells % 0.0 Neutrophils # 5.2 Lymphocytes # 0.6 L Monocytes # 0.3 Eosinophils # 0.0 Basophils # 0.0 Nucleated Red Blood Cells # 0.0 Sodium Level 134 L Potassium Level 3.5 Chloride Level 103 Carbon Dioxide Level 22 Anion Gap 13 Blood Urea Nitrogen 41 H Creatinine 1.64 H Glucose Level 113 Calcium Level 8.1 L B-Type Natriuretic Peptide 08441 H Medications Medications Current Medications Ondansetron HCl (Zofran Tab) 4 mg Q6H PRN PO NAUSEA AND/OR VOMITING; Start 08/06/17 at 12:00 Ondansetron HCl (Zofran Inj) 4 mg Q6H PRN IV NAUSEA AND/OR VOMITING Last administered on 08/13/17 09:59; Admin Dose 4 MG; Start 08/06/17 at 12:00 Metoclopramide HCl (Reglan) 10 mg Q6H PRN IV NAUSEA AND/OR VOMITING; Start 08/06/17 at 12:00 Acetaminophen (Tylenol Liquid) 650 mg Q6H PRN PO PAIN LEVEL 1-3 OR FEVER; Start 08/06/17 at 12:00 Acetaminophen (Tylenol Tab) 650 mg Q6H PRN PO PAIN LEVEL 1-3 OR FEVER Last administered on 08/10/17 15:48; Admin Dose 650 MG; Start 08/06/17 at 12:00 Acetaminophen/ Hydrocodone Bitart ([place] (5/325)) 1 tab Q6H PRN PO PAIN LEVEL 4 -6; Start 08/06/17 at 12:00 Docusate Sodium (Colace) 100 mg Q12H PRN PO CONSTIPATION; Start 08/06/17 at 12: 00 Magnesium Hydroxide (Milk Of Mag) 30 ml DAILY PRN PO CONSTIPATION; Start at 12:00 Bisacodyl (Dulcolax) 5 mg DAILY PRN PO CONSTIPATION; Start 08/06/17 at 12:00 Ferrous Sulfate (Ferrous Sulfate (Ec)) 325 mg DAILY PO Last administered on 09:13; Admin Dose 325 MG; Start 08/07/17 at 09:00 Aspirin (Halfprin) 81 mg DAILY PO Last administered on 08/14/17 09:13; Admin Dose 81 MG; Start 08/07/17 at 09:00 Oxycodone/ Acetaminophen (Percocet (5/ 325)) 1 tab Q4H PRN PO REPORTED NON- CARDIAC PAIN 4-7; Start 08/06/17 at 12:00 Morphine Sulfate (morphine) 1 mg Q1H PRN IV PAIN NOT RELIEVED BY OTHERS Last administered on 08/09/17 04:43; Admin Dose 1 MG; Start 08/06/17 at 12:00 Docusate Sodium (Colace) 100 mg BID PO Last administered on 08/14/17 09:13; Admin Dose 100 MG; Start 08/06/17 at 21:00 Atorvastatin Calcium (Lipitor) 80 mg DAILY@21 PO Last administered on 21:49; Admin Dose 80 MG; Start 08/06/17 at 21:00 Carvedilol (Coreg) 3.125 mg BID PO Last administered on 08/14/17 09:13; Admin Dose 3.125 MG; Start 08/09/17 at 21:00 Clopidogrel Bisulfate (plaVIX) 75 mg DAILY NGT Last administered on 08/14/17 09:13; Admin Dose 75 MG; Start 08/12/17 at 09:00 Famotidine (Pepcid) 20 mg BID PO Last administered on 08/14/17 09:13; Admin Dose 20 MG; Start 08/12/17 at 21:00 Methylprednisolone Sodium Succinate (Solu-Medrol) 60 mg Q12 IV Last administered on 08/14/17 09:14; Admin Dose 60 MG; Start 08/13/17 at 21:00 Furosemide (Lasix) 40 mg DAILY@06 IV Last administered on 08/14/17 06:12; Admin Dose 40 MG; Start 08/13/17 at 13:00 MINA CALI 11, 2017 11:17
--- NOTE | 2017-08-14 12:16 | CONS ---
Date/Time of Note Date/Time of Note DATE: 08/14/17 TIME: 12:08 Consult Date/Type/Reason Admit Date/Time Aug 06, 2017 at 10:21 Initial Consult Date 08/06/17 Type of Consultation: Pulmonary Ordering Provider: LAVON HUNTER MD Subjective Still with exertional dyspnea. Objective Vital Signs Date Time Temp Pulse Resp B/P Pulse Ox O2 Delivery O2 Flow Rate FiO2 08/14/17 11:11 97.6 69 20 167/80 99 08/14/17 08:26 3.0 32 08/14/17 08:25 Nasal Cannula Intake and Output 08/13/17 08/13/17 08/14/17 14:59 22:59 06:59 Intake Total 760 ml 120 ml Output Total 365 ml 435 ml 2000 ml Balance -365 ml 325 ml -1880 ml Exam PHYSICAL EXAMINATION: GENERAL: Well-nourished, well-developed gentleman, VITAL SIGNS: NECK: Supple. No JVD or lymphadenopathy. CARDIAC: S1, S2, no added sounds or murmurs. CHEST: Diminished air entry bilaterally. Mild exertional wheezing ABDOMEN: Soft, nontender. No guarding or rebound. EXTREMITIES: No cyanosis, clubbing, or edema. NEUROLOGIC: Generalized weakness. Mild accessory muscle use Results/Medications Result Diagram: 08/14/17 0610 08/14/17 0610 Results 24 hrs Laboratory Tests Test 08/13/17 21:00 08/14/17 06:10 Blood Gas Specimen Source Blood arterial Arterial Blood Date Drawn 08/13/2017 9:15:29 PM Arterial Blood pH (Temp corrected) 7.408 Arterial Blood pCO2 (Temp correct) 29.9 L Arterial Blood pO2 (Temp corrected) 100.4 H Arterial Blood HCO3 18.4 L Arterial Blood Base Excess -5.2 L Arterial Blood Oxygen Saturation 97.0 Mike Test N/A Arterial Blood Gas Puncture Site Right Brachial Arterial Blood Carboxyhemoglobin 0.3 Arterial Blood Methemoglobin 0 Blood Gas A-a O2 Differential 78.4 H Oxyhemoglobin Percent 96.7 Total Hemoglobin 10.9 L Blood Gas Temperature 37.0 Blood Gas Modality NASAL CANNULA FiO2 30.0 Blood Gas Notified Whom LW Blood Gas Notified Time 08/13/2017 9:27:08 PM White Blood Count 6.1 Red Blood Count 3.28 L Hemoglobin 9.7 L Hematocrit 29.5 L Mean Corpuscular Volume 89.9 Mean Corpuscular Hemoglobin 29.6 Mean Corpuscular Hemoglobin Concent 32.9 Red Cell Distribution Width 14.6 H Platelet Count 342 Mean Platelet Volume 10.8 H Neutrophils % 84.5 H Lymphocytes % 10.1 L Monocytes % 4.6 Eosinophils % 0.0 Basophils % 0.0 Nucleated Red Blood Cells % 0.0 Neutrophils # 5.2 Lymphocytes # 0.6 L Monocytes # 0.3 Eosinophils # 0.0 Basophils # 0.0 Nucleated Red Blood Cells # 0.0 Sodium Level 134 L Potassium Level 3.5 Chloride Level 103 Carbon Dioxide Level 22 Anion Gap 13 Blood Urea Nitrogen 41 H Creatinine 1.64 H Glucose Level 113 Calcium Level 8.1 L B-Type Natriuretic Peptide 92520 H Medications Current Medications Ondansetron HCl (Zofran Tab) 4 mg Q6H PRN PO NAUSEA AND/OR VOMITING; Start 08/06/17 at 12:00 Ondansetron HCl (Zofran Inj) 4 mg Q6H PRN IV NAUSEA AND/OR VOMITING Last administered on 08/13/17 09:59; Admin Dose 4 MG; Start 08/06/17 at 12:00 Metoclopramide HCl (Reglan) 10 mg Q6H PRN IV NAUSEA AND/OR VOMITING; Start 08/06/17 at 12:00 Acetaminophen (Tylenol Liquid) 650 mg Q6H PRN PO PAIN LEVEL 1-3 OR FEVER; Start 08/06/17 at 12:00 Acetaminophen (Tylenol Tab) 650 mg Q6H PRN PO PAIN LEVEL 1-3 OR FEVER Last administered on 08/10/17 15:48; Admin Dose 650 MG; Start 08/06/17 at 12:00 Acetaminophen/ Hydrocodone Bitart ([place] (5/325)) 1 tab Q6H PRN PO PAIN LEVEL 4 -6; Start 08/06/17 at 12:00 Docusate Sodium (Colace) 100 mg Q12H PRN PO CONSTIPATION; Start 08/06/17 at 12: 00 Magnesium Hydroxide (Milk Of Mag) 30 ml DAILY PRN PO CONSTIPATION; Start at 12:00 Bisacodyl (Dulcolax) 5 mg DAILY PRN PO CONSTIPATION; Start 08/06/17 at 12:00 Ferrous Sulfate (Ferrous Sulfate (Ec)) 325 mg DAILY PO Last administered on 09:13; Admin Dose 325 MG; Start 08/07/17 at 09:00 Aspirin (Halfprin) 81 mg DAILY PO Last administered on 08/14/17 09:13; Admin Dose 81 MG; Start 08/07/17 at 09:00 Oxycodone/ Acetaminophen (Percocet (5/ 325)) 1 tab Q4H PRN PO REPORTED NON- CARDIAC PAIN 4-7; Start 08/06/17 at 12:00 Morphine Sulfate (morphine) 1 mg Q1H PRN IV PAIN NOT RELIEVED BY OTHERS Last administered on 08/09/17 04:43; Admin Dose 1 MG; Start 08/06/17 at 12:00 Docusate Sodium (Colace) 100 mg BID PO Last administered on 08/14/17 09:13; Admin Dose 100 MG; Start 08/06/17 at 21:00 Atorvastatin Calcium (Lipitor) 80 mg DAILY@21 PO Last administered on 21:49; Admin Dose 80 MG; Start 08/06/17 at 21:00 Carvedilol (Coreg) 3.125 mg BID PO Last administered on 08/14/17 09:13; Admin Dose 3.125 MG; Start 08/09/17 at 21:00 Clopidogrel Bisulfate (plaVIX) 75 mg DAILY NGT Last administered on 08/14/17 09:13; Admin Dose 75 MG; Start 08/12/17 at 09:00 Famotidine (Pepcid) 20 mg BID PO Last administered on 08/14/17 09:13; Admin Dose 20 MG; Start 08/12/17 at 21:00 Methylprednisolone Sodium Succinate (Solu-Medrol) 60 mg Q12 IV Last administered on 08/14/17 09:14; Admin Dose 60 MG; Start 08/13/17 at 21:00 Furosemide (Lasix) 40 mg DAILY@06 IV Last administered on 08/14/17 06:12; Admin Dose 40 MG; Start 08/13/17 at 13:00 Assessment/Plan Chief Complaint/Hosp Course IMPRESSION AND PLAN: 1. Stridor, unclear etiology. Appreciate ENT evaluation CT neck and chest nondiagnostic. 2. Possible aspiration versus tracheobronchitis. 3. ST elevation [place] status post PCI. 4. Renal insufficiency Plan 1. Cardiac recommendations. 2. Bronchodilators 3. Gentle diuresis as tolerated. 4. Steroid trial. 5. ENT recommendations. 6. Encourage out of bed Problems: CHUCK PANCHAL MD, [facility] Aug 14, 2017 12:16
[2017-08-14] MEDS: ATORVASTATIN 80 MG TAB PO SCH (20:47)
[2017-08-15] VITALS (11 sets, daily range): BP systolic 149–164; BP diastolic 76–98; PULSE 59–77; RESP 18–20
[2017-08-15] MEDS: ALBUTEROL/IPRATROPIUM (NEB) 3 ML AMP HHN SCH ×4 (01:28→20:05)
[2017-08-15] MEDS: FUROSEMIDE 40 MG INJ IV SCH (06:13)
[2017-08-15] MEDS: ASPIRIN (EC) 81 MG TAB PO SCH (09:13)
[2017-08-15] MEDS: DOCUSATE SODIUM 100 MG CAP PO SCH ×2 (09:13→20:15)
[2017-08-15] MEDS: FAMOTIDINE 20 MG TAB PO SCH (09:13)
[2017-08-15] MEDS: FERROUS SULFATE (EC) 325 MG TAB PO SCH (09:13)
[2017-08-15] MEDS: CLOPIDOGREL 75 MG TAB NGT SCH (09:14)
[2017-08-15] MEDS: METHYLPREDNISOLONE 125 MG INJ IV SCH ×2 (09:14→20:16)
--- NOTE | 2017-08-15 09:41 | CONS ---
Date/Time of Note Date/Time of Note DATE: 08/15/17 TIME: 09:40 Consult Date/Type/Reason Admit Date/Time Aug 06, 2017 at 10:21 Initial Consult Date 08/06/17 Type of Consultation: neph Ordering Provider: LAVON HUNTER MD Subjective The patient is stable. No events overnight. continues good uo. poc reviewed with dr. castillo. OBJECTIVE: HEENT: Head is normocephalic. NECK: Supple. HEART: Regular rate. LUNGS: Show diminished breath sounds at the base. ABDOMEN: Soft, nontender to palpation without rebound or guarding. EXTREMITIES: Negative for clubbing, cyanosis, no edema. DERMATOLOGIC: No rashes. MUSCULOSKELETAL: No joint effusions. NEUROLOGIC: No change in exam. MEDICATIONS: The patient's medications have been reviewed. Objective Vital Signs Date Time Temp Pulse Resp B/P Pulse Ox O2 Delivery O2 Flow Rate FiO2 08/15/17 08:23 3.0 08/15/17 08:21 70 22 97 Nasal Cannula 08/15/17 07:31 98.2 155/81 08/14/17 08:26 32 Intake and Output 08/14/17 08/14/17 08/15/17 15:00 23:00 07:00 Intake Total 720 ml 300 ml Output Total 1900 ml 1150 ml Balance -1180 ml -850 ml Results/Medications Result Diagram: 08/14/17 0610 08/14/17 0610 Medications Current Medications Ondansetron HCl (Zofran Tab) 4 mg Q6H PRN PO NAUSEA AND/OR VOMITING; Start 08/06/17 at 12:00 Ondansetron HCl (Zofran Inj) 4 mg Q6H PRN IV NAUSEA AND/OR VOMITING Last administered on 08/13/17 09:59; Admin Dose 4 MG; Start 08/06/17 at 12:00 Metoclopramide HCl (Reglan) 10 mg Q6H PRN IV NAUSEA AND/OR VOMITING; Start 08/06/17 at 12:00 Acetaminophen (Tylenol Liquid) 650 mg Q6H PRN PO PAIN LEVEL 1-3 OR FEVER; Start 08/06/17 at 12:00 Acetaminophen (Tylenol Tab) 650 mg Q6H PRN PO PAIN LEVEL 1-3 OR FEVER Last administered on 08/10/17 15:48; Admin Dose 650 MG; Start 08/06/17 at 12:00 Acetaminophen/ Hydrocodone Bitart ([place] (5/325)) 1 tab Q6H PRN PO PAIN LEVEL 4 -6; Start 08/06/17 at 12:00 Docusate Sodium (Colace) 100 mg Q12H PRN PO CONSTIPATION; Start 08/06/17 at 12: 00 Magnesium Hydroxide (Milk Of Mag) 30 ml DAILY PRN PO CONSTIPATION; Start at 12:00 Bisacodyl (Dulcolax) 5 mg DAILY PRN PO CONSTIPATION; Start 08/06/17 at 12:00 Ferrous Sulfate (Ferrous Sulfate (Ec)) 325 mg DAILY PO Last administered on 09:13; Admin Dose 325 MG; Start 08/07/17 at 09:00 Aspirin (Halfprin) 81 mg DAILY PO Last administered on 08/15/17 09:13; Admin Dose 81 MG; Start 08/07/17 at 09:00 Oxycodone/ Acetaminophen (Percocet (5/ 325)) 1 tab Q4H PRN PO REPORTED NON- CARDIAC PAIN 4-7; Start 08/06/17 at 12:00 Morphine Sulfate (morphine) 1 mg Q1H PRN IV PAIN NOT RELIEVED BY OTHERS Last administered on 08/09/17 04:43; Admin Dose 1 MG; Start 08/06/17 at 12:00 Docusate Sodium (Colace) 100 mg BID PO Last administered on 08/15/17 09:13; Admin Dose 100 MG; Start 08/06/17 at 21:00 Atorvastatin Calcium (Lipitor) 80 mg DAILY@21 PO Last administered on 20:47; Admin Dose 80 MG; Start 08/06/17 at 21:00 Carvedilol (Coreg) 3.125 mg BID PO Last administered on 08/15/17 09:14; Admin Dose 3.125 MG; Start 08/09/17 at 21:00 Clopidogrel Bisulfate (plaVIX) 75 mg DAILY NGT Last administered on 08/15/17 09:14; Admin Dose 75 MG; Start 08/12/17 at 09:00 Famotidine (Pepcid) 20 mg BID PO Last administered on 08/15/17 09:13; Admin Dose 20 MG; Start 08/12/17 at 21:00 Methylprednisolone Sodium Succinate (Solu-Medrol) 60 mg Q12 IV Last administered on 08/15/17 09:14; Admin Dose 60 MG; Start 08/13/17 at 21:00 Furosemide (Lasix) 40 mg DAILY@06 IV Last administered on 08/15/17 06:13; Admin Dose 40 MG; Start 08/13/17 at 13:00 Assessment/Plan Chief Complaint/Hosp Course 1. Nonoliguric acute kidney injury on top of chronic kidney disease with previous baseline creatinine 1.2 mg/dL. Etiology of acute kidney injury was multifactorial secondary to contrast-induced nephropathy, acute tubular necrosis. Renal function appears to be improving as the patient is entering possible maintenance and/or recovery phase of acute tubular necrosis. At this point, we will continue current treatment plan, supportive care, renally dose all medications. All meds dosed ok. watch for diuretic phase of jyoti with electrolyte wasting. 2. Anemia. Monitor hemoglobin and hematocrit levels. 3. Mineral bone disease. Monitor calcium and phosphorus levels. 4. Metabolic acidosis secondary to acute kidney injury, improved. 5. Hypomagnesemia, improved. Continue to monitor and replete as needed. 6. Acute congestive heart failure exacerbation, status post cardiogenic shock. Continue medical management. 7. [id number] elevation myocardial infarction, status post percutaneous coronary intervention. Continue current treatment. 8. Dyslipidemia. Continue Lipitor. 9. Respiratory stridor. Continue steroids. Problems: KIARA MORTON MD Aug 15, 2017 09:41
--- NOTE | 2017-08-15 11:10 | CONS ---
Date/Time of Note Date/Time of Note DATE: 08/15/17 TIME: 11:09 Consult Date/Type/Reason Admit Date/Time Aug 06, 2017 at 10:21 Initial Consult Date 08/06/17 Type of Consultation: Pulmonary Ordering Provider: LAVON HUNTER MD Subjective Patient comfortable overnight according to family at bedside. Appears comfortable this morning. Resting in bed. Discomfort from Holland catheter. Objective Vital Signs Date Time Temp Pulse Resp B/P Pulse Ox O2 Delivery O2 Flow Rate FiO2 08/15/17 08:23 3.0 08/15/17 08:21 70 22 97 Nasal Cannula 08/15/17 07:31 98.2 155/81 08/14/17 08:26 32 Intake and Output 08/14/17 08/14/17 08/15/17 14:59 22:59 06:59 Intake Total 720 ml 300 ml Output Total 1900 ml 1150 ml Balance -1180 ml -850 ml Exam PHYSICAL EXAMINATION: GENERAL: Well-nourished, well-developed gentleman, VITAL SIGNS: NECK: Supple. No JVD or lymphadenopathy. CARDIAC: S1, S2, no added sounds or murmurs. CHEST: Diminished air entry bilaterally. Mild exertional wheezing ABDOMEN: Soft, nontender. No guarding or rebound. EXTREMITIES: No cyanosis, clubbing, or edema. NEUROLOGIC: Generalized weakness. Mild accessory muscle use Results/Medications Result Diagram: 08/14/17 0610 08/14/17 0610 Medications Current Medications Ondansetron HCl (Zofran Tab) 4 mg Q6H PRN PO NAUSEA AND/OR VOMITING; Start 08/06/17 at 12:00 Ondansetron HCl (Zofran Inj) 4 mg Q6H PRN IV NAUSEA AND/OR VOMITING Last administered on 08/13/17 09:59; Admin Dose 4 MG; Start 08/06/17 at 12:00 Metoclopramide HCl (Reglan) 10 mg Q6H PRN IV NAUSEA AND/OR VOMITING; Start 08/06/17 at 12:00 Acetaminophen (Tylenol Liquid) 650 mg Q6H PRN PO PAIN LEVEL 1-3 OR FEVER; Start 08/06/17 at 12:00 Acetaminophen (Tylenol Tab) 650 mg Q6H PRN PO PAIN LEVEL 1-3 OR FEVER Last administered on 08/10/17 15:48; Admin Dose 650 MG; Start 08/06/17 at 12:00 Acetaminophen/ Hydrocodone Bitart ([place] (5/325)) 1 tab Q6H PRN PO PAIN LEVEL 4 -6; Start 08/06/17 at 12:00 Docusate Sodium (Colace) 100 mg Q12H PRN PO CONSTIPATION; Start 08/06/17 at 12: 00 Magnesium Hydroxide (Milk Of Mag) 30 ml DAILY PRN PO CONSTIPATION; Start at 12:00 Bisacodyl (Dulcolax) 5 mg DAILY PRN PO CONSTIPATION; Start 08/06/17 at 12:00 Ferrous Sulfate (Ferrous Sulfate (Ec)) 325 mg DAILY PO Last administered on 09:13; Admin Dose 325 MG; Start 08/07/17 at 09:00 Aspirin (Halfprin) 81 mg DAILY PO Last administered on 08/15/17 09:13; Admin Dose 81 MG; Start 08/07/17 at 09:00 Oxycodone/ Acetaminophen (Percocet (5/ 325)) 1 tab Q4H PRN PO REPORTED NON- CARDIAC PAIN 4-7; Start 08/06/17 at 12:00 Morphine Sulfate (morphine) 1 mg Q1H PRN IV PAIN NOT RELIEVED BY OTHERS Last administered on 08/09/17 04:43; Admin Dose 1 MG; Start 08/06/17 at 12:00 Docusate Sodium (Colace) 100 mg BID PO Last administered on 08/15/17 09:13; Admin Dose 100 MG; Start 08/06/17 at 21:00 Atorvastatin Calcium (Lipitor) 80 mg DAILY@21 PO Last administered on 20:47; Admin Dose 80 MG; Start 08/06/17 at 21:00 Carvedilol (Coreg) 3.125 mg BID PO Last administered on 08/15/17 09:14; Admin Dose 3.125 MG; Start 08/09/17 at 21:00 Clopidogrel Bisulfate (plaVIX) 75 mg DAILY NGT Last administered on 08/15/17 09:14; Admin Dose 75 MG; Start 08/12/17 at 09:00 Famotidine (Pepcid) 20 mg BID PO Last administered on 08/15/17 09:13; Admin Dose 20 MG; Start 08/12/17 at 21:00 Methylprednisolone Sodium Succinate (Solu-Medrol) 60 mg Q12 IV Last administered on 08/15/17 09:14; Admin Dose 60 MG; Start 08/13/17 at 21:00 Furosemide (Lasix) 40 mg DAILY@06 IV Last administered on 08/15/17 06:13; Admin Dose 40 MG; Start 08/13/17 at 13:00 Assessment/Plan Chief Complaint/Hosp Course IMPRESSION AND PLAN: 1. Stridor, unclear etiology. Appreciate ENT evaluation CT neck and chest nondiagnostic. 2. Possible aspiration versus tracheobronchitis. 3. ST elevation [place] status post PCI. 4. Renal insufficiency Plan 1. Cardiac recommendations. 2. Bronchodilators 3. Gentle diuresis as tolerated. 4. Steroid decrease steroids. 5. ENT recommendations. 6. Encourage out of bed 7. DC Holland catheter. Problems: CHUCK PANCHAL MD, [facility] Aug 15, 2017 11:09
--- NOTE | 2017-08-15 12:12 | PN ---
Date/Time of Note Date/Time of Note DATE: 08/15/17 TIME: 12:10 Assessment/Plan VTE Prophylaxis VTE Prophylaxis Intervention: SCD's Lines/Catheters IV Catheter Type (from Nrs): PICC Line Central line still needed: Yes Urinary Cath still in place: Yes Reason Cath still needed: urinary retention Assessment/Plan Chief Complaint/Hosp Course Assessment/Plan: 87 yo M without known hx of cardiopulmonary disease presented with weakness to clinic, found with acute inferior STEMI, S/P emergent thrombectomy/ PCI RCA (using FEDERICO) with subsequent cardiogenic shock requiring dopamine drip to maintain MAPs, now resolving, off pressors presently. 1. Acute inferior STEMI - S/P emergent thrombectomy/ PCI RCA (using FEDERICO). -Continue current cardiac medications, aspirin, Plavix now, Lipitor, follow- up cardiology recommendations 2. Cardiogenic shock - resolved - anderson cultured 11.3 for hypotension though suspect 2/2 STEMI, status post treatment with dopamine, now blood pressure stable, has been off pressors - monitor for now 3. s/p recent bacteremia -white count normal, blood cultures this admission negative for growth - monitor for now for any fevers or leukocytosis 4. dyslipidemia - on Lipitor 5. gout: Holding allopurinol secondary to MARCOS -Because of possible toe gout pain/flair, continue steroids for now, although pain much improved over the last 2-3 days 6. Low magnesium: Repleted, stable now, monitor 7. Stridor, mild shortness of breath: on Solumedrol which we are weaning down now - CT scan neck and chest did show some anatomical narrowing of the trachea and respiratory system, otherwise no acute abnormalities. - Continue duo nebs, steroids, follow-up ENT, pulmonary recommendations 8. MARCOS: Creatinine still elevated -Monitor creatinine, follow renal recommendations. Problems: Subjective 24 Hr Interval Summary Free Text/Dictation Still with occasional shortness of breath when ambulating, overall less shortness of breath since yesterday. Exam/Review of Systems Vital Signs Vitals Vital Signs Date Time Temp Pulse Resp B/P Pulse Ox O2 Delivery O2 Flow Rate FiO2 08/15/17 12:08 68 08/15/17 11:15 98.2 20 163/95 100 08/15/17 08:23 3.0 08/15/17 08:21 Nasal Cannula 08/14/17 08:26 32 Intake and Output 08/14/17 08/14/17 08/15/17 14:59 22:59 06:59 Intake Total 720 ml 300 ml Output Total 1900 ml 1150 ml Balance -1180 ml -850 ml Exam nad, alert Pupils equal round reactive to light, extra ocular muscles intact Neck supple lungs slightly distant breath sounds, no wheezes or crackles heard bilaterally no mrg abd soft, NT, ND No lower exam edema bilaterally No focal deficits Results Result Diagram: 08/14/17 0610 08/14/17 0610 Medications Medications Current Medications Ondansetron HCl (Zofran Tab) 4 mg Q6H PRN PO NAUSEA AND/OR VOMITING; Start 08/06/17 at 12:00 Ondansetron HCl (Zofran Inj) 4 mg Q6H PRN IV NAUSEA AND/OR VOMITING Last administered on 08/13/17 09:59; Admin Dose 4 MG; Start 08/06/17 at 12:00 Metoclopramide HCl (Reglan) 10 mg Q6H PRN IV NAUSEA AND/OR VOMITING; Start 08/06/17 at 12:00 Acetaminophen (Tylenol Liquid) 650 mg Q6H PRN PO PAIN LEVEL 1-3 OR FEVER; Start 08/06/17 at 12:00 Acetaminophen (Tylenol Tab) 650 mg Q6H PRN PO PAIN LEVEL 1-3 OR FEVER Last administered on 08/10/17 15:48; Admin Dose 650 MG; Start 08/06/17 at 12:00 Acetaminophen/ Hydrocodone Bitart ([place] (5/325)) 1 tab Q6H PRN PO PAIN LEVEL 4 -6; Start 08/06/17 at 12:00 Docusate Sodium (Colace) 100 mg Q12H PRN PO CONSTIPATION; Start 08/06/17 at 12: 00 Magnesium Hydroxide (Milk Of Mag) 30 ml DAILY PRN PO CONSTIPATION; Start at 12:00 Bisacodyl (Dulcolax) 5 mg DAILY PRN PO CONSTIPATION; Start 08/06/17 at 12:00 Ferrous Sulfate (Ferrous Sulfate (Ec)) 325 mg DAILY PO Last administered on 09:13; Admin Dose 325 MG; Start 08/07/17 at 09:00 Aspirin (Halfprin) 81 mg DAILY PO Last administered on 08/15/17 09:13; Admin Dose 81 MG; Start 08/07/17 at 09:00 Oxycodone/ Acetaminophen (Percocet (5/ 325)) 1 tab Q4H PRN PO REPORTED NON- CARDIAC PAIN 4-7; Start 08/06/17 at 12:00 Morphine Sulfate (morphine) 1 mg Q1H PRN IV PAIN NOT RELIEVED BY OTHERS Last administered on 08/09/17 04:43; Admin Dose 1 MG; Start 08/06/17 at 12:00 Docusate Sodium (Colace) 100 mg BID PO Last administered on 08/15/17 09:13; Admin Dose 100 MG; Start 08/06/17 at 21:00 Atorvastatin Calcium (Lipitor) 80 mg DAILY@21 PO Last administered on 20:47; Admin Dose 80 MG; Start 08/06/17 at 21:00 Carvedilol (Coreg) 3.125 mg BID PO Last administered on 08/15/17 09:14; Admin Dose 3.125 MG; Start 08/09/17 at 21:00 Clopidogrel Bisulfate (plaVIX) 75 mg DAILY NGT Last administered on 08/15/17 09:14; Admin Dose 75 MG; Start 08/12/17 at 09:00 Famotidine (Pepcid) 20 mg BID PO Last administered on 08/15/17 09:13; Admin Dose 20 MG; Start 08/12/17 at 21:00 Methylprednisolone Sodium Succinate (Solu-Medrol) 60 mg Q12 IV Last administered on 08/15/17 09:14; Admin Dose 60 MG; Start 08/13/17 at 21:00 Furosemide (Lasix) 40 mg DAILY@06 IV Last administered on 08/15/17 06:13; Admin Dose 40 MG; Start 08/13/17 at 13:00 MINA CALI 12, 2017 12:12
[2017-08-15 12:34] LABS: BASOPHILS % 0.1 % (0.0-2.0); HEMATOCRIT 35.5 % (42.0-52.0); LYMPHOCYTES # 0.6 10^3/ul (0.8-2.9); LYMPHOCYTES % 7.6 % (15.0-51.0); MEAN CORPUSCULAR HEMOGLOBIN 30.5 pg (29.0-33.0); MEAN CORPUSCULAR HGB CONC 33.8 g/dl (32.0-37.0); MEAN CORPUSCULAR VOLUME 90.3 fl (82.0-101.0); MEAN PLATELET VOLUME 10.5 fl (7.4-10.4); MONOCYTE # 0.3 10^3/ul (0.3-0.9); MONOCYTES % 3.2 % (0.0-11.0); NEUTROPHIL # 7.1 10^3/ul (1.6-7.5); NEUTROPHILS % 88.5 % (39.0-77.0); PLATELET COUNT 377 10^3/UL (140-415); RED BLOOD COUNT 3.93 10^6/ul (4.70-6.10); RED CELL DISTRIBUTION WIDTH 14.5 % (11.5-14.5); WHITE BLOOD COUNT 8.1 10^3/ul (4.8-10.8)
[2017-08-15 12:51] LABS: CALCIUM 8.6 mg/dl (8.4-10.2); CREATININE 1.64 mg/dl (0.61-1.24); POTASSIUM 3.6 mmol/L (3.5-5.1)
[2017-08-15] MEDS: ATORVASTATIN 80 MG TAB PO SCH (20:15)
[2017-08-16] VITALS (11 sets, daily range): BP systolic 132–162; BP diastolic 68–80; PULSE 66–94; RESP 17–20
[2017-08-16] MEDS: ALBUTEROL/IPRATROPIUM (NEB) 3 ML AMP HHN SCH ×4 (01:36→21:24)
[2017-08-16] MEDS: FUROSEMIDE 40 MG INJ IV SCH (06:04)
[2017-08-16] MEDS: METHYLPREDNISOLONE 125 MG INJ IV SCH (08:41)
[2017-08-16] MEDS: CLOPIDOGREL 75 MG TAB NGT SCH (08:42)
[2017-08-16] MEDS: DOCUSATE SODIUM 100 MG CAP PO SCH ×2 (08:43→20:17)
[2017-08-16] MEDS: ASPIRIN (EC) 81 MG TAB PO SCH (08:44)
[2017-08-16] MEDS: FAMOTIDINE 20 MG TAB PO SCH (08:44)
[2017-08-16] MEDS: FERROUS SULFATE (EC) 325 MG TAB PO SCH (08:44)
--- NOTE | 2017-08-16 08:50 | PN ---
DATE: 08/16/2017 SUBJECTIVE: The patient is stable. No events overnight. No fevers, chills, nausea, vomiting. OBJECTIVE: VITAL SIGNS: Blood pressure is 152/76, pulse 86, respiration 20, temperature 97.6. HEENT: Head is normocephalic. NECK: Supple. HEART: Regular rate. LUNGS: Show diminished breath sounds at base. ABDOMEN: Soft, nontender to palpation. No rebound or guarding. EXTREMITIES: Negative for clubbing, cyanosis. No edema. DERMATOLOGIC: No rashes. MUSCULOSKELETAL: No joint effusions. NEUROLOGIC: No change in exam. MEDICATIONS: The patient's medications have been reviewed. LABORATORY DATA: Have been reviewed. ASSESSMENT AND PLAN: 1. Nonoliguric acute kidney injury on top of chronic kidney disease with previous baseline creatini ne 1.2 mg/dL. Etiology of acute kidney injury is multifactorial secondary to contrast nephropathy, acute tubular necrosis. Renal function has stabilized and is slowly improving. At this point, will continue current treatment plan, supportive care, renally dose all meds. 2. Anemia. Monitor hemoglobin and hematocrit levels. 3. Mineral bone disorder. Monitor calcium and phosphorus levels. 4. Metabolic acidosis, improving. Continue to monitor. 5. Hypomagnesemia, improved. Continue to monitor and replete as needed. 6. Acute congestive heart failure exacerbation, status post cardiogenic shock. Continue medical ma nagement. Continue diuretic therapy. 7. Non-ST elevation myocardial infarction, status post percutaneous coronary intervention. Continu e current treatment plan. 8. Hypertension. Blood pressure is elevated. Continue current blood pressure regimen, will consid er adding calcium channel bryan if no significant improvement. 9. Dyslipidemia. Continue Lipitor. 10. Respiratory failure, improving. Continue current treatment plan. Dictated By: LIZET BUTTERFIELD DO NR/NTS Conf#: [id number] DID#: [id number] CC: PRITESH FINCH MD;*EndCC*
--- NOTE | 2017-08-16 09:07 | RADRPT ---
PROCEDURE: XR Chest. CLINICAL INDICATION: Shortness of breath TECHNIQUE: Single portable view of the chest was obtained COMPARISON: 08/13/2017 FINDINGS: Stable cardiomegaly. Decreased blunting of the left costophrenic angle. No consolidation. Right uppe r lung nodule stable. Left PICC terminates at the SVC/RA junction. Right upper quadrant clips. RPTAT: KK IMPRESSION: Decreased left pleural effusion, now trace. Possible trace right pleural effusion. No consolidation. Overall improved aeration compared to prior exam. Alie Coello Physician Date Time Electronically viewed and signed by Alie Coello Physician on 08/16/2017 09:07 CA/
[2017-08-16 09:18] LABS: BASOPHILS % 0.1 % (0.0-2.0); HEMATOCRIT 34.4 % (42.0-52.0); HEMOGLOBIN 11.8 g/dl (14.0-18.0); LYMPHOCYTES # 1.5 10^3/ul (0.8-2.9); LYMPHOCYTES % 13.1 % (15.0-51.0); MEAN CORPUSCULAR HEMOGLOBIN 30.4 pg (29.0-33.0); MEAN CORPUSCULAR HGB CONC 34.3 g/dl (32.0-37.0); MEAN CORPUSCULAR VOLUME 88.7 fl (82.0-101.0); MEAN PLATELET VOLUME 10.8 fl (7.4-10.4); MONOCYTE # 0.9 10^3/ul (0.3-0.9); MONOCYTES % 7.9 % (0.0-11.0); NEUTROPHIL # 8.8 10^3/ul (1.6-7.5); NEUTROPHILS % 78.3 % (39.0-77.0); PLATELET COUNT 387 10^3/UL (140-415); RED BLOOD COUNT 3.88 10^6/ul (4.70-6.10); RED CELL DISTRIBUTION WIDTH 14.4 % (11.5-14.5); WHITE BLOOD COUNT 11.3 10^3/ul (4.8-10.8)
[2017-08-16 09:49] LABS: ALBUMIN/GLOBULIN RATIO 0.96; BILIRUBIN,INDIRECT 0.4 mg/dl (0-1.1); BILIRUBIN,TOTAL 0.4 mg/dl (0.2-1.3); CALCIUM 8.6 mg/dl (8.4-10.2); CREATININE 1.47 mg/dl (0.61-1.24); MAGNESIUM 1.4 mg/dl (1.7-2.5); POTASSIUM 3.1 mmol/L (3.5-5.1); TOTAL PROTEIN 6.1 g/dl (6.1-8.1)
--- NOTE | 2017-08-16 11:37 | CONS ---
Date/Time of Note Date/Time of Note DATE: 08/16/17 TIME: 11:35 Consult Date/Type/Reason Admit Date/Time Aug 06, 2017 at 10:21 Initial Consult Date 08/06/17 Type of Consultation: Pulmonary Ordering Provider: LAVON HUNTER MD Subjective Patient better today. Less shortness of breath no chest pain or palpitations. Objective Vital Signs Date Time Temp Pulse Resp B/P Pulse Ox O2 Delivery O2 Flow Rate FiO2 08/16/17 08:31 66 08/16/17 08:15 Nasal Cannula 2.0 08/16/17 07:56 20 98 08/16/17 07:31 97.8 162/76 08/16/17 02:45 27 Intake and Output 08/15/17 08/15/17 08/16/17 14:59 22:59 06:59 Intake Total 720 ml Output Total 1900 ml 600 ml 150 ml Balance -1900 ml 120 ml -150 ml Exam PHYSICAL EXAMINATION: GENERAL: Well-nourished, well-developed gentleman, VITAL SIGNS: NECK: Supple. No JVD or lymphadenopathy. CARDIAC: S1, S2, no added sounds or murmurs. CHEST: Diminished air entry bilaterally. Mild exertional wheezing ABDOMEN: Soft, nontender. No guarding or rebound. EXTREMITIES: No cyanosis, clubbing, or edema. NEUROLOGIC: Generalized weakness. Mild accessory muscle use Results/Medications Result Diagram: 08/16/17 0844 08/16/17 0843 Results 24 hrs Laboratory Tests Test 08/15/17 12:21 08/16/17 08:43 08/16/17 08:44 White Blood Count 8.1 # 11.3 #H Red Blood Count 3.93 L 3.88 L Hemoglobin 12.0 #L 11.8 L Hematocrit 35.5 #L 34.4 L Mean Corpuscular Volume 90.3 88.7 Mean Corpuscular Hemoglobin 30.5 30.4 Mean Corpuscular Hemoglobin Concent 33.8 34.3 Red Cell Distribution Width 14.5 14.4 Platelet Count 377 387 Mean Platelet Volume 10.5 H 10.8 H Neutrophils % 88.5 H 78.3 H Lymphocytes % 7.6 L 13.1 L Monocytes % 3.2 7.9 Eosinophils % 0.0 0.0 Basophils % 0.1 0.1 Nucleated Red Blood Cells % 0.0 0.0 Neutrophils # 7.1 8.8 H Lymphocytes # 0.6 L 1.5 Monocytes # 0.3 0.9 Eosinophils # 0.0 0.0 Basophils # 0.0 0.0 Nucleated Red Blood Cells # 0.0 0.0 Sodium Level 135 135 Potassium Level 3.6 3.1 L Chloride Level 99 98 Carbon Dioxide Level 27 26 Anion Gap 13 14 Blood Urea Nitrogen 49 H 53 H Creatinine 1.64 H 1.47 H Glucose Level 116 95 Calcium Level 8.6 8.6 Phosphorus Level 3.0 Magnesium Level 1.4 L Total Bilirubin 0.4 Direct Bilirubin 0.00 Indirect Bilirubin 0.4 Aspartate Amino Transf (AST/SGOT) 32 Alanine Aminotransferase (ALT/SGPT) 42 Alkaline Phosphatase 111 Total Protein 6.1 Albumin 3.0 L Globulin 3.10 Albumin/Globulin Ratio 0.96 Medications Current Medications Ondansetron HCl (Zofran Tab) 4 mg Q6H PRN PO NAUSEA AND/OR VOMITING; Start 08/06/17 at 12:00 Ondansetron HCl (Zofran Inj) 4 mg Q6H PRN IV NAUSEA AND/OR VOMITING Last administered on 08/13/17 09:59; Admin Dose 4 MG; Start 08/06/17 at 12:00 Metoclopramide HCl (Reglan) 10 mg Q6H PRN IV NAUSEA AND/OR VOMITING; Start 08/06/17 at 12:00 Acetaminophen (Tylenol Liquid) 650 mg Q6H PRN PO PAIN LEVEL 1-3 OR FEVER; Start 08/06/17 at 12:00 Acetaminophen (Tylenol Tab) 650 mg Q6H PRN PO PAIN LEVEL 1-3 OR FEVER Last administered on 08/10/17 15:48; Admin Dose 650 MG; Start 08/06/17 at 12:00 Acetaminophen/ Hydrocodone Bitart ([place] (5/325)) 1 tab Q6H PRN PO PAIN LEVEL 4 -6; Start 08/06/17 at 12:00 Docusate Sodium (Colace) 100 mg Q12H PRN PO CONSTIPATION; Start 08/06/17 at 12: 00 Magnesium Hydroxide (Milk Of Mag) 30 ml DAILY PRN PO CONSTIPATION; Start at 12:00 Bisacodyl (Dulcolax) 5 mg DAILY PRN PO CONSTIPATION; Start 08/06/17 at 12:00 Ferrous Sulfate (Ferrous Sulfate (Ec)) 325 mg DAILY PO Last administered on 08:44; Admin Dose 325 MG; Start 08/07/17 at 09:00 Aspirin (Halfprin) 81 mg DAILY PO Last administered on 08/16/17 08:44; Admin Dose 81 MG; Start 08/07/17 at 09:00 Oxycodone/ Acetaminophen (Percocet (5/ 325)) 1 tab Q4H PRN PO REPORTED NON- CARDIAC PAIN 4-7; Start 08/06/17 at 12:00 Morphine Sulfate (morphine) 1 mg Q1H PRN IV PAIN NOT RELIEVED BY OTHERS Last administered on 08/09/17 04:43; Admin Dose 1 MG; Start 08/06/17 at 12:00 Docusate Sodium (Colace) 100 mg BID PO Last administered on 08/16/17 08:43; Admin Dose 100 MG; Start 08/06/17 at 21:00 Atorvastatin Calcium (Lipitor) 80 mg DAILY@21 PO Last administered on 20:15; Admin Dose 80 MG; Start 08/06/17 at 21:00 Carvedilol (Coreg) 3.125 mg BID PO Last administered on 08/16/17 08:44; Admin Dose 3.125 MG; Start 08/09/17 at 21:00 Clopidogrel Bisulfate (plaVIX) 75 mg DAILY NGT Last administered on 08/16/17 08:42; Admin Dose 75 MG; Start 08/12/17 at 09:00 Methylprednisolone Sodium Succinate (Solu-Medrol) 60 mg Q12 IV Last administered on 08/16/17 08:41; Admin Dose 60 MG; Start 08/13/17 at 21:00 Famotidine (Pepcid) 20 mg DAILY PO Last administered on 08/16/17 08:44; Admin Dose 20 MG; Start 08/16/17 at 09:00 Assessment/Plan Chief Complaint/Hosp Course IMPRESSION AND PLAN: 1. Stridor, unclear etiology. Appreciate ENT evaluation CT neck and chest nondiagnostic. 2. Possible aspiration versus tracheobronchitis. 3. ST elevation AR status post PCI. 4. Renal insufficiency Plan 1. Cardiac recommendations. 2. Bronchodilators 3. Gentle diuresis as tolerated. 4. Steroid decrease steroids. Ambulate off O2. DC planning. Outpatient pulmonary and primary care follow-ups. Problems: CHUCK PANHCAL MD, [facility] Aug 16, 2017 11:37
[2017-08-16] MEDS ORDERED: POTASSIUM CHLORIDE (SR) 20 MEQ TAB PO STA (12:04)
[2017-08-16] MEDS ORDERED: MAGNESIUM OXIDE 400 MG TAB PO ONE (12:30)
--- NOTE | 2017-08-16 15:18 | PN ---
Date/Time of Note Date/Time of Note DATE: 08/16/17 TIME: 15:16 Assessment/Plan VTE Prophylaxis VTE Prophylaxis Intervention: SCD's Lines/Catheters IV Catheter Type (from Nrsg): PICC Line Central line still needed: No Urinary Cath still in place: No Assessment/Plan Assessment/Plan 87 yo M admitted for STEMI #STEMI sp PCI -cont DAPT, statin, BP meds. convert lasix to PO #stridor: sp ENT eval, change to PO steroids #gout: cont home allopurinol as Cr Cl >20 #MARCOS on CKD: renal on consult will do 6mwt in AM and hopefully discharge Subjective 24 Hr Interval Summary Free Text/Dictation Still a little SOB with activity Exam/Review of Systems Vital Signs Vitals Vital Signs Date Time Temp Pulse Resp B/P Pulse Ox O2 Delivery O2 Flow Rate FiO2 08/16/17 15:12 2.0 08/16/17 13:48 58 20 98 Nasal Cannula 08/16/17 11:37 98.1 149/80 08/16/17 02:45 27 Intake and Output 08/15/17 08/15/17 08/16/17 14:59 22:59 06:59 Intake Total 720 ml Output Total 1900 ml 600 ml 150 ml Balance -1900 ml 120 ml -150 ml Results nad no mrg lungs clear abd soft no rashes Result Diagram: 08/16/17 0844 08/16/17 0843 Results 24 hrs Laboratory Tests Test 08/16/17 08:43 08/16/17 08:44 Sodium Level 135 Potassium Level 3.1 L Chloride Level 98 Carbon Dioxide Level 26 Anion Gap 14 Blood Urea Nitrogen 53 H Creatinine 1.47 H Glucose Level 95 Calcium Level 8.6 Phosphorus Level 3.0 Magnesium Level 1.4 L Total Bilirubin 0.4 Direct Bilirubin 0.00 Indirect Bilirubin 0.4 Aspartate Amino Transf (AST/SGOT) 32 Alanine Aminotransferase (ALT/SGPT) 42 Alkaline Phosphatase 111 Total Protein 6.1 Albumin 3.0 L Globulin 3.10 Albumin/Globulin Ratio 0.96 White Blood Count 11.3 #H Red Blood Count 3.88 L Hemoglobin 11.8 L Hematocrit 34.4 L Mean Corpuscular Volume 88.7 Mean Corpuscular Hemoglobin 30.4 Mean Corpuscular Hemoglobin Concent 34.3 Red Cell Distribution Width 14.4 Platelet Count 387 Mean Platelet Volume 10.8 H Neutrophils % 78.3 H Lymphocytes % 13.1 L Monocytes % 7.9 Eosinophils % 0.0 Basophils % 0.1 Nucleated Red Blood Cells % 0.0 Neutrophils # 8.8 H Lymphocytes # 1.5 Monocytes # 0.9 Eosinophils # 0.0 Basophils # 0.0 Nucleated Red Blood Cells # 0.0 Medications Medications Current Medications Ondansetron HCl (Zofran Tab) 4 mg Q6H PRN PO NAUSEA AND/OR VOMITING; Start 08/06/17 at 12:00 Ondansetron HCl (Zofran Inj) 4 mg Q6H PRN IV NAUSEA AND/OR VOMITING Last administered on 08/13/17 09:59; Admin Dose 4 MG; Start 08/06/17 at 12:00 Metoclopramide HCl (Reglan) 10 mg Q6H PRN IV NAUSEA AND/OR VOMITING; Start 08/06/17 at 12:00 Acetaminophen (Tylenol Liquid) 650 mg Q6H PRN PO PAIN LEVEL 1-3 OR FEVER; Start 08/06/17 at 12:00 Acetaminophen (Tylenol Tab) 650 mg Q6H PRN PO PAIN LEVEL 1-3 OR FEVER Last administered on 08/10/17 15:48; Admin Dose 650 MG; Start 08/06/17 at 12:00 Acetaminophen/ Hydrocodone Bitart ([place] (5/325)) 1 tab Q6H PRN PO PAIN LEVEL 4 -6; Start 08/06/17 at 12:00 Docusate Sodium (Colace) 100 mg Q12H PRN PO CONSTIPATION; Start 08/06/17 at 12: 00 Magnesium Hydroxide (Milk Of Mag) 30 ml DAILY PRN PO CONSTIPATION; Start at 12:00 Bisacodyl (Dulcolax) 5 mg DAILY PRN PO CONSTIPATION; Start 08/06/17 at 12:00 Ferrous Sulfate (Ferrous Sulfate (Ec)) 325 mg DAILY PO Last administered on 08:44; Admin Dose 325 MG; Start 08/07/17 at 09:00 Aspirin (Halfprin) 81 mg DAILY PO Last administered on 08/16/17 08:44; Admin Dose 81 MG; Start 08/07/17 at 09:00 Oxycodone/ Acetaminophen (Percocet (5/ 325)) 1 tab Q4H PRN PO REPORTED NON- CARDIAC PAIN 4-7; Start 08/06/17 at 12:00 Morphine Sulfate (morphine) 1 mg Q1H PRN IV PAIN NOT RELIEVED BY OTHERS Last administered on 08/09/17 04:43; Admin Dose 1 MG; Start 08/06/17 at 12:00 Docusate Sodium (Colace) 100 mg BID PO Last administered on 08/16/17 08:43; Admin Dose 100 MG; Start 08/06/17 at 21:00 Atorvastatin Calcium (Lipitor) 80 mg DAILY@21 PO Last administered on 20:15; Admin Dose 80 MG; Start 08/06/17 at 21:00 Carvedilol (Coreg) 3.125 mg BID PO Last administered on 08/16/17 08:44; Admin Dose 3.125 MG; Start 08/09/17 at 21:00 Clopidogrel Bisulfate (plaVIX) 75 mg DAILY NGT Last administered on 08/16/17 08:42; Admin Dose 75 MG; Start 08/12/17 at 09:00 Methylprednisolone Sodium Succinate (Solu-Medrol) 60 mg Q12 IV Last administered on 08/16/17 08:41; Admin Dose 60 MG; Start 08/13/17 at 21:00 Famotidine (Pepcid) 20 mg DAILY PO Last administered on 08/16/17 08:44; Admin Dose 20 MG; Start 08/16/17 at 09:00 LORI MIRANDA MD Aug 16, 2017 15:18
--- NOTE | 2017-08-16 17:34 | CONS ---
Date/Time of Note Date/Time of Note DATE: 08/16/17 TIME: 17:30 Consult Date/Type/Reason Admit Date/Time Aug 06, 2017 at 10:21 Initial Consult Date 08/06/17 Type of Consultation: cardiology Ordering Provider: LAVON HUNTER MD Subjective cardiology follow up note/ critical care note: S: D/ W staff and rhythm was reviewed. pt remains in NSR d/w daughter. He has had occasional sob and wheezing per RN report he denies any cp or pressure to me no groin pain O: General: no acute distress HEENT: NC/AT. pupils are equal. round. NECK: NO JVD. mild stridor. CV: RRR. systolic murmur; no gallop or rubs. PULM: no wheezing or rhonchi in the lung. GI: SOFT, NT, ND, no rebound or guarding Extremity: trace B/L LE edema. no clubbing. neuro: awake and alert,and oriented. Psych: calm and pleasant rectal: deferred : normal male vascular R fem sheath removed now with no hematoma or bleeding Echo reviewed personally: 1. Lower limits of normal systolic function. Normal left ventricular cavity size. Mild concentric left ventricular hypertrophy. Ejection fraction is visually estimated at 50 %. Tissue Doppler/Mitral Doppler indices are consistent with impaired relaxation (Stage I diastolic dysfunction). These segments of the LV are hypokinetic inferior mid segment and inferior apex segment. 2. Normal appearance of the mitral valve. Mild mitral annular calcification. Trace mitral regurgitation. 3. No significant aortic stenosis or insufficiency. Aortic cusps appear mildly calcified. 4. Normal appearance of the tricuspid valve. Unable to obtain RVSP due to minimal presence of tricuspid regurgitation. CXR reviewed. Objective Vital Signs Date Time Temp Pulse Resp B/P Pulse Ox O2 Delivery O2 Flow Rate FiO2 08/16/17 16:11 94 08/16/17 15:40 97.6 18 148/75 92 08/16/17 15:12 2.0 08/16/17 13:48 Nasal Cannula 08/16/17 02:45 27 Intake and Output 08/15/17 08/15/17 08/16/17 15:00 23:00 07:00 Intake Total 720 ml Output Total 1900 ml 600 ml 150 ml Balance -1900 ml 120 ml -150 ml Results/Medications Result Diagram: 08/16/17 0844 08/16/17 0843 Results 24 hrs Laboratory Tests Test 08/16/17 08:43 08/16/17 08:44 Sodium Level 135 Potassium Level 3.1 L Chloride Level 98 Carbon Dioxide Level 26 Anion Gap 14 Blood Urea Nitrogen 53 H Creatinine 1.47 H Glucose Level 95 Calcium Level 8.6 Phosphorus Level 3.0 Magnesium Level 1.4 L Total Bilirubin 0.4 Direct Bilirubin 0.00 Indirect Bilirubin 0.4 Aspartate Amino Transf (AST/SGOT) 32 Alanine Aminotransferase (ALT/SGPT) 42 Alkaline Phosphatase 111 Total Protein 6.1 Albumin 3.0 L Globulin 3.10 Albumin/Globulin Ratio 0.96 White Blood Count 11.3 #H Red Blood Count 3.88 L Hemoglobin 11.8 L Hematocrit 34.4 L Mean Corpuscular Volume 88.7 Mean Corpuscular Hemoglobin 30.4 Mean Corpuscular Hemoglobin Concent 34.3 Red Cell Distribution Width 14.4 Platelet Count 387 Mean Platelet Volume 10.8 H Neutrophils % 78.3 H Lymphocytes % 13.1 L Monocytes % 7.9 Eosinophils % 0.0 Basophils % 0.1 Nucleated Red Blood Cells % 0.0 Neutrophils # 8.8 H Lymphocytes # 1.5 Monocytes # 0.9 Eosinophils # 0.0 Basophils # 0.0 Nucleated Red Blood Cells # 0.0 Medications Current Medications Ondansetron HCl (Zofran Tab) 4 mg Q6H PRN PO NAUSEA AND/OR VOMITING; Start 08/06/17 at 12:00 Ondansetron HCl (Zofran Inj) 4 mg Q6H PRN IV NAUSEA AND/OR VOMITING Last administered on 08/13/17 09:59; Admin Dose 4 MG; Start 08/06/17 at 12:00 Metoclopramide HCl (Reglan) 10 mg Q6H PRN IV NAUSEA AND/OR VOMITING; Start 08/06/17 at 12:00 Acetaminophen (Tylenol Liquid) 650 mg Q6H PRN PO PAIN LEVEL 1-3 OR FEVER; Start 08/06/17 at 12:00 Acetaminophen (Tylenol Tab) 650 mg Q6H PRN PO PAIN LEVEL 1-3 OR FEVER Last administered on 08/10/17 15:48; Admin Dose 650 MG; Start 08/06/17 at 12:00 Acetaminophen/ Hydrocodone Bitart ([place] (5/325)) 1 tab Q6H PRN PO PAIN LEVEL 4 -6; Start 08/06/17 at 12:00 Docusate Sodium (Colace) 100 mg Q12H PRN PO CONSTIPATION; Start 08/06/17 at 12: 00 Magnesium Hydroxide (Milk Of Mag) 30 ml DAILY PRN PO CONSTIPATION; Start at 12:00 Bisacodyl (Dulcolax) 5 mg DAILY PRN PO CONSTIPATION; Start 08/06/17 at 12:00 Ferrous Sulfate (Ferrous Sulfate (Ec)) 325 mg DAILY PO Last administered on 08:44; Admin Dose 325 MG; Start 08/07/17 at 09:00 Aspirin (Halfprin) 81 mg DAILY PO Last administered on 08/16/17 08:44; Admin Dose 81 MG; Start 08/07/17 at 09:00 Oxycodone/ Acetaminophen (Percocet (5/ 325)) 1 tab Q4H PRN PO REPORTED NON- CARDIAC PAIN 4-7; Start 08/06/17 at 12:00 Morphine Sulfate (morphine) 1 mg Q1H PRN IV PAIN NOT RELIEVED BY OTHERS Last administered on 08/09/17 04:43; Admin Dose 1 MG; Start 08/06/17 at 12:00 Docusate Sodium (Colace) 100 mg BID PO Last administered on 08/16/17 08:43; Admin Dose 100 MG; Start 08/06/17 at 21:00 Atorvastatin Calcium (Lipitor) 80 mg DAILY@21 PO Last administered on 20:15; Admin Dose 80 MG; Start 08/06/17 at 21:00 Carvedilol (Coreg) 3.125 mg BID PO Last administered on 08/16/17 08:44; Admin Dose 3.125 MG; Start 08/09/17 at 21:00 Clopidogrel Bisulfate (plaVIX) 75 mg DAILY NGT Last administered on 08/16/17 08:42; Admin Dose 75 MG; Start 08/12/17 at 09:00 Famotidine (Pepcid) 20 mg DAILY PO Last administered on 08/16/17 08:44; Admin Dose 20 MG; Start 08/16/17 at 09:00 Prednisone (Prednisone) 40 mg DAILY PO ; Start 08/17/17 at 09:00 Allopurinol (Zyloprim) 100 mg BID PO ; Start 08/16/17 at 21:00 Assessment/Plan Chief Complaint/Hosp Course 1. Acute inferior STEMI 2/ S/P emergent thrombectomy/ PCI RCA (using [place]ER[place]) 3. s/p Cardiogenic shock: BP has improved now 4. s/p recent bacteremia 5. dyslipidemia 6/ abnormal ECG due to above \7. severe and worsening anemia 8/ MARCOS 9. Hypo Mg. : 10. resp failure/ stridors: pulm input is appreciated. improved but not resolved yet. 11. anemia; stable with negative Guiac stool 12. CHF. on lasix Rec: cont ASA and plavix. I have changed Brilinta to plavix due to concerns about possibly allergy to brilinta which was the new medication for him. ABX PER IM. statin transfusion prn replace Mg prn will cont low dose coreg f/u ENT consult rec f/u renal rec. will dec lasix qd and add aldactone plavix prescription was given to daughter. Thank you for his referral. I will continue to follow along with you as needed base. . HAYDEN WAGNER MD FAC Problems: HAYDEN WAGNER MD Aug 16, 2017 17:34
[2017-08-16] MEDS ORDERED: FUROSEMIDE 40 MG TAB PO SCH (18:00)
[2017-08-16] MEDS ORDERED: MAGNESIUM SULFATE 3 GM in DEXTROSE 5% 100 ML IVPB ONE (18:30)
[2017-08-16] MEDS: SPIRONOLACTONE 25 MG TAB PO SCH (18:38)
[2017-08-16] MEDS: ATORVASTATIN 80 MG TAB PO SCH (20:17)
[2017-08-16] MEDS: ALLOPURINOL 100 MG TAB PO SCH (20:17)
[2017-08-17] VITALS (10 sets, daily range): BP systolic 115–151; BP diastolic 59–84; PULSE 74–90; RESP 18–26
[2017-08-17] MEDS: ALBUTEROL/IPRATROPIUM (NEB) 3 ML AMP HHN SCH ×3 (01:37→13:22)
[2017-08-17 08:35] LABS: ALBUMIN 2.7 g/dl (3.3-4.9); BILIRUBIN,INDIRECT 0.4 mg/dl (0-1.1); BILIRUBIN,TOTAL 0.4 mg/dl (0.2-1.3); CALCIUM 8.4 mg/dl (8.4-10.2); CREATININE 1.4 mg/dl (0.61-1.24); TOTAL PROTEIN 5.8 g/dl (6.1-8.1)
[2017-08-17 08:36] LABS: ALBUMIN/GLOBULIN RATIO 0.87
[2017-08-17 08:40] LABS: CALCIUM 8.3 mg/dl (8.4-10.2); CREATININE 1.36 mg/dl (0.61-1.24); MAGNESIUM 2.2 mg/dl (1.7-2.5); PHOSPHORUS 2.7 mg/dl (2.5-4.9); POTASSIUM 3.3 mmol/L (3.5-5.1)
[2017-08-17] MEDS: CLOPIDOGREL 75 MG TAB NGT SCH (08:54)
[2017-08-17] MEDS: ALLOPURINOL 100 MG TAB PO SCH (08:54)
[2017-08-17] MEDS: SPIRONOLACTONE 25 MG TAB PO SCH (08:54)
[2017-08-17] MEDS: DOCUSATE SODIUM 100 MG CAP PO SCH (08:54)
[2017-08-17] MEDS: ASPIRIN (EC) 81 MG TAB PO SCH (08:54)
[2017-08-17] MEDS: FERROUS SULFATE (EC) 325 MG TAB PO SCH (08:54)
[2017-08-17] MEDS: FAMOTIDINE 20 MG TAB PO SCH (08:55)
[2017-08-17] MEDS ORDERED: predniSONE 20 MG TAB PO SCH (09:00)
[2017-08-17] MEDS ORDERED: FUROSEMIDE 40 MG TAB PO SCH (09:00)
--- NOTE | 2017-08-17 09:01 | PN ---
DATE: 08/17/2017 SUBJECTIVE: The patient is stable. No events overnight. No fevers, chills, nausea, vomiting. OBJECTIVE: VITAL SIGNS: Blood pressure is 151/74, temperature 98.2, pulse 74, respiration 18. HEENT: Head is normocephalic. NECK: Supple. HEART: Regular rate. LUNGS: Show diminished breath sounds at base. ABDOMEN: Soft, nontender to palpation without rebound or guarding. EXTREMITIES: Negative for clubbing, cyanosis, no edema. DERMATOLOGIC: No rashes. MUSCULOSKELETAL: No joint effusions. NEUROLOGIC: No change in exam. MEDICATIONS: The patient's medications have been reviewed. LABORATORY DATA: Currently pending. ASSESSMENT AND PLAN: 1. Nonoliguric acute kidney injury on top of chronic kidney disease with previous baseline creatini ne 1.2 mg/dL. Etiology of acute kidney injury is multifactorial secondary to contrast nephropathy a cute kidney necrosis. Renal function is stabilized and slowly improving. At this point, continue c urrent treatment plan, supportive care, renally dose all meds. 2. Anemia. Monitor change. 3. Mineral bone disorder. Continue to monitor calcium and phosphorus levels. 4. Hypomagnesemia. Continue to monitor and replete as needed. 5. Acute congestive heart failure exacerbation. Continue medical management. Continue diuretic th erapy. Follow up with Cardiology. 6. Status post percutaneous coronary intervention. Continue current treatment plan. 7. Hypertension. Continue current blood pressure regimen. 8. Dyslipidemia. Continue statin therapy. 9. Status post respiratory failure. Dictated By: LIZET BUTTERFIELD DO NR/NTS Conf#: [id number] DID#: [id number] CC: LIZET BUTTERFIELD DO;*EndCC*
--- NOTE | 2017-08-17 11:05 | CONS ---
Date/Time of Note Date/Time of Note DATE: 08/17/17 TIME: 11:03 Assessment/Plan Assessment/Plan Additional Assessment/Plan Assessment and recommendations; 1. Patient admitted with stridor of unknown etiology with essentially negative workup. There is complete interval resolution of stridor on examination. Patient also is quite asymptomatic now. 2. Chronic renal insufficiency. Continue current treatment. Taper prednisone. Consultation Date/Type/Reason Admit Date/Time Aug 06, 2017 at 10:21 Initial Consult Date 08/06/17 Type of Consultation: Pulmonary Referring Provider: LAVON HUNETR MD 24 HR Interval Summary Free Text/Dictation Patient's condition is stable. No shortness of breath. Denies any coughing. General exam; elderly male, awake. Currently no distress. Exam/Review of Systems Vital Signs Vitals Vital Signs Date Time Temp Pulse Resp B/P Pulse Ox O2 Delivery O2 Flow Rate FiO2 08/17/17 08:09 74 08/17/17 07:26 98.2 18 151/74 99 08/17/17 04:13 Nasal Cannula 2.0 08/16/17 02:45 27 Intake and Output 08/16/17 08/16/17 08/17/17 15:00 23:00 07:00 Intake Total 740 ml 800 ml Output Total 1200 ml 950 ml Balance -460 ml -150 ml Exam HEENT exam; supple neck, no JVD. No lymphadenopathy. Midline trachea. No thyromegaly. No stridor. Patient is a left intraocular lens implant. Multiple carious teeth are present. Chest exam; clear to auscultation. S1-S2 audible, no murmurs. Regular rhythm. Abdomen exam; soft, nondistended. No organomegaly. Bowel sounds audible. Extremity exam; no peripheral edema. 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 Results Result Diagram: 08/16/17 0844 08/17/17 0727 Results 24 hrs Laboratory Tests Test 08/17/17 07:27 Sodium Level 134 L Potassium Level 3.0 L Chloride Level 99 Carbon Dioxide Level 29 Anion Gap 9 # Blood Urea Nitrogen 55 H Creatinine 1.40 H Glucose Level 91 Calcium Level 8.4 Phosphorus Level 2.7 Magnesium Level 2.2 Total Bilirubin 0.4 Direct Bilirubin 0.00 Indirect Bilirubin 0.4 Aspartate Amino Transf (AST/SGOT) 29 Alanine Aminotransferase (ALT/SGPT) 44 Alkaline Phosphatase 113 Total Protein 5.8 L Albumin 2.7 L Globulin 3.10 Albumin/Globulin Ratio 0.87 Medications Medications Current Medications Ondansetron HCl (Zofran Tab) 4 mg Q6H PRN PO NAUSEA AND/OR VOMITING; Start 08/06/17 at 12:00 Ondansetron HCl (Zofran Inj) 4 mg Q6H PRN IV NAUSEA AND/OR VOMITING Last administered on 08/13/17 09:59; Admin Dose 4 MG; Start 08/06/17 at 12:00 Metoclopramide HCl (Reglan) 10 mg Q6H PRN IV NAUSEA AND/OR VOMITING; Start 08/06/17 at 12:00 Acetaminophen (Tylenol Liquid) 650 mg Q6H PRN PO PAIN LEVEL 1-3 OR FEVER; Start 08/06/17 at 12:00 Acetaminophen (Tylenol Tab) 650 mg Q6H PRN PO PAIN LEVEL 1-3 OR FEVER Last administered on 08/10/17 15:48; Admin Dose 650 MG; Start 08/06/17 at 12:00 Acetaminophen/ Hydrocodone Bitart ([place] (5/325)) 1 tab Q6H PRN PO PAIN LEVEL 4 -6; Start 08/06/17 at 12:00 Docusate Sodium (Colace) 100 mg Q12H PRN PO CONSTIPATION; Start 08/06/17 at 12: 00 Magnesium Hydroxide (Milk Of Mag) 30 ml DAILY PRN PO CONSTIPATION; Start at 12:00 Bisacodyl (Dulcolax) 5 mg DAILY PRN PO CONSTIPATION; Start 08/06/17 at 12:00 Ferrous Sulfate (Ferrous Sulfate (Ec)) 325 mg DAILY PO Last administered on 08:54; Admin Dose 325 MG; Start 08/07/17 at 09:00 Aspirin (Halfprin) 81 mg DAILY PO Last administered on 08/17/17 08:54; Admin Dose 81 MG; Start 08/07/17 at 09:00 Oxycodone/ Acetaminophen (Percocet (5/ 325)) 1 tab Q4H PRN PO REPORTED NON- CARDIAC PAIN 4-7; Start 08/06/17 at 12:00 Morphine Sulfate (morphine) 1 mg Q1H PRN IV PAIN NOT RELIEVED BY OTHERS Last administered on 08/09/17 04:43; Admin Dose 1 MG; Start 08/06/17 at 12:00 Docusate Sodium (Colace) 100 mg BID PO Last administered on 08/17/17 08:54; Admin Dose 100 MG; Start 08/06/17 at 21:00 Atorvastatin Calcium (Lipitor) 80 mg DAILY@21 PO Last administered on 20:17; Admin Dose 80 MG; Start 08/06/17 at 21:00 Carvedilol (Coreg) 3.125 mg BID PO Last administered on 08/17/17 08:55; Admin Dose 3.125 MG; Start 08/09/17 at 21:00 Clopidogrel Bisulfate (plaVIX) 75 mg DAILY NGT Last administered on 08/17/17 08:54; Admin Dose 75 MG; Start 08/12/17 at 09:00 Famotidine (Pepcid) 20 mg DAILY PO Last administered on 08/17/17 08:55; Admin Dose 20 MG; Start 08/16/17 at 09:00 Prednisone (Prednisone) 40 mg DAILY PO Last administered on 08/17/17 08:54; Admin Dose 40 MG; Start 08/17/17 at 09:00 Allopurinol (Zyloprim) 100 mg BID PO Last administered on 08/17/17 08:54; Admin Dose 100 MG; Start 08/16/17 at 21:00 Furosemide (Lasix) 40 mg DAILY PO Last administered on 08/17/17 08:55; Admin Dose 40 MG; Start 08/17/17 at 09:00 Spironolactone (Aldactone) 25 mg DAILY PO Last administered on 08/17/17 08:54 ; Admin Dose 25 MG; Start 08/16/17 at 18:00 IRINEO DURAN Aug 17, 2017 11:05
[2017-08-17] MEDS ORDERED: SPIR25TA PO (13:02)
[2017-08-17] MEDS ORDERED: FURO40TA4 PO (13:02)
[2017-08-17] MEDS ORDERED: CARV3.1260 PO (13:02)
[2017-08-17] MEDS ORDERED: CLOP75TA28 PO (13:02)
[2017-08-17] MEDS ORDERED: ATOR80TA75 PO (13:02)
[2017-08-17] MEDS ORDERED: ASPI-664 PO (13:02)
[2017-08-17] MEDS ORDERED: prednisone taper (13:08)
--- NOTE | 2017-08-17 13:09 | PDOCDIS ---
Discharge Instructions CONDITION Patient Condition: Stable HOME CARE INSTRUCTIONS: Special Diet: Mechanical soft diet FOLLOW UP/APPOINTMENTS Follow-up Plan Please follow up with your regular doctor within 7 days Please follow up with the process safety engineer/heart doctor within [address] Puma Vitale Office Address [id number] [address] Office LORI MIRANDA MD Aug 17, 2017 13:09
--- NOTE | 2017-08-17 13:21 | DS ---
Date/Time of Note Date/Time of Note DATE: 08/17/17 TIME: 13:11 Discharge Summary Admission/Discharge Info Admit Date/Time Aug 06, 2017 at 10:21 Discharge Date/Time Discharge Diagnosis STEMI complicated by cardiogenic shock, stridor, acute on chronic renal insufficiency Patient Condition: Stable Consults cardiology, pulmonology, ENT, nephrology Procedures 11.3: LHC, PTCA R mid coronary artery with FEDERICO, thrombectomy of RCA Findings: 1. Left main: birfurcates to LAD & LCX. It has 10% distal stenosis. 2. LAD: has 30% stenosis at proximal LAD, and 40% stenosis at mid LAD. 3. Left circumflex artery: is nondominant. it has 40% proximal stenosis 4. Ramus intermediate : Is a moderate-sized vessel with no significant stenosis 5. RCA: is large dominant. it has subtotal mid stenosis with evidence of intraluminal thrombus. After successful PTCA stenting of this lesion there was no significant residual stenosis left. 6. LVEDP 17 7. initial BP: 57/32. Final BP 95/62 11.3 TTE Conclusions 1. Lower limits of normal systolic function. Normal left ventricular cavity size. Mild concentric left ventricular hypertrophy. Ejection fraction is visually estimated at 50 %. Tissue Doppler/Mitral Doppler indices are consistent with impaired relaxation (Stage I diastolic dysfunction). These segments of the LV are hypokinetic inferior mid segment and inferior apex segment. 2. Normal appearance of the mitral valve. Mild mitral annular calcification. Trace mitral regurgitation. 3. No significant aortic stenosis or insufficiency. Aortic cusps appear mildly calcified. 4. Normal appearance of the tricuspid valve. Unable to obtain RVSP due to minimal presence of tricuspid regurgitation. 11.8 BENI IMPRESSION: Bilateral echogenic kidneys compatible with medical renal disease. 11.[address] neck IMPRESSION: 1. No evidence of a soft tissue mass, pathologically enlarged lymphadenopathy, or infectious/inflammatory process. 2. Secretions contacting the left lateral free edge of the epiglottis. 3. Mild opacification of the right mastoid sinus without mastoid septa coalescence. 4. Variation for medial course of the bilateral internal carotid arteries into the retropharyngeal space. Findings should not be mistaken for submucosal masses. 5. 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 6. 5 mm anterolisthesis of C6 relative to C7. 11.10 LE dopplers IMPRESSION: 1. No evidence of deep vein thrombosis involving either lower extremity. Hx of Present Illness 87 yo M with pmhx gout, h/o gallstone pancreatitis sp cholecystectomy c/b post op abscess warranting drainage, recent ESBL EColi bacteremia 2/2 biliary stent removal presented to clinic with c/o weakness and fatigue this AM. EKG at clinic concerning for STEMI. Pt transferred to ER where repeat EKG with STEMI. 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 Regarding pt's ESBL Ecoli bacteremia, this was diagnosed at the end of July here at [facility]. Pt discharged with 2 weeks of Invanz, last dose was scheduled for today. Pt a little fatigued at time of my attempted eval. Hospital Course Pt taken for urgent cath shortly after arrival to the ER. Had PCI with FEDERICO and thrombectomy of RCA. Pt admitted to ICU post cath, had hypotension following procedure warranting dopamine, however this was weaned within a few days. Pt's BP regimen changed to include and bb, and pt was started on statin and DAPT post MD. Pt noted to have some stridor during his time in the ICU, concern raised that this was an ADR to the Brilinta on which pt had been started post cath. Pt seen by ENT, laryngoscopic exam unremarkable. Pt started on high dose steroids, weaned to a taper by discharge. Pt transferred from ICU to floor on 08.12. While on the floor pt was seen by PT which advised home health PT. Pt also followed by renal service for MARCOS on CKD, thought to be from contrast, renal function back to baseline by discharge. copy of dc summary given to patient and faxed to PCP prior to discharge Home Meds Active Scripts Pantoprazole* (Pantoprazole*) 40 Mg Tablet., 40 MG PO BID for 60 Days, #120 Prov:LORI MIRANDA MD 03/21/17 Reported Medications Nitroglycerin* (Nitrostat*) 0.4 Mg Tab.subl, 0.4 MG SL Q5MIN Y for CHEST PAIN, BOTTLE 07/21/17 Ferrous Sulfate* (Ferrous Sulfate*) 325 Mg Tabec, 325 MG PO DAILY, TAB 07/21/17 Meloxicam* (Meloxicam*) 7.5 Mg Tablet, 7.5 MG PO DAILY, #30 TAB 07/21/17 Enalapril Maleate* (Enalapril Maleate*) 10 Mg Tablet, 10 MG PO DAILY, TAB 09/29/16 Allopurinol* (Zyloprim*) 100 Mg Tablet, 100 MG PO BID 02/17/13 Follow-up Plan Please follow up with your regular doctor within 7 days Please follow up with the foster winder/heart doctor within [address] Hayden Vitale Office Address [id number] [facility] [address] [place] [id number] Office Please see your kidney doctor/camp attendant within 2 weeks. If you do not have a camp attendant, I have included the info for the one who saw you in the hospital. Primary Care Provider Tasha Quesada MD Time spent on discharge: > 30 minutes Pending Labs Laboratory Tests Test 08/17/17 07:27 Sodium Level 134mmol/L (135-144) Potassium Level 3.0mmol/L (3.5-5.1) Chloride Level 99mmol/L (97-110) Carbon Dioxide Level 29mmol/L (21-31) Anion Gap 9 (8-16) Blood Urea Nitrogen 55mg/dl (7-20) Creatinine 1.40mg/dl (0.61-1.24) Glucose Level 91mg/dl (70-220) Calcium Level 8.4mg/dl (8.4-10.2) Phosphorus Level 2.7mg/dl (2.5-4.9) Magnesium Level 2.2mg/dl (1.7-2.5) Total Bilirubin 0.4mg/dl (0.2-1.3) Direct Bilirubin 0.00mg/dl (0.00-0.20) Indirect Bilirubin 0.4mg/dl (0-1.1) Aspartate Amino Transf (AST/SGOT) 29IU/L (15-46) Alanine Aminotransferase (ALT/SGPT) 44IU/L (13-69) Alkaline Phosphatase 113IU/L (42-121) Total Protein 5.8g/dl (6.1-8.1) Albumin 2.7g/dl (3.3-4.9) Globulin 3.10g/dl (1.3-3.2) Albumin/Globulin Ratio 0.87 Copies To: CC: LIZET BUTTERFIELD DO; HAYDEN VITALE MD, ELLEN MD Aug 17, 2017 13:21
[2017-08-17] MEDS ORDERED: POTASSIUM CHLORIDE (SR) 20 MEQ TAB PO STA (15:54)
--- NOTE | 2017-08-17 15:55 | CONS ---
Date/Time of Note Date/Time of Note DATE: 08/17/17 TIME: 15:54 Consult Date/Type/Reason Admit Date/Time Aug 06, 2017 at 10:21 Initial Consult Date 08/06/17 Type of Consultation: card Ordering Provider: LAVON HUNTER MD Subjective cardiology follow up note/ critical care note: S: D/ W staff and rhythm was reviewed. pt remains in NSR he denies any cp or pressure to me no groin pain O: General: no acute distress HEENT: NC/AT. pupils are equal. round. NECK: NO JVD. mild stridor. CV: RRR. systolic murmur; no gallop or rubs. PULM: no wheezing or rhonchi in the lung. GI: SOFT, NT, ND, no rebound or guarding Extremity: trace B/L LE edema. no clubbing. neuro: awake and alert,and oriented. Psych: calm and pleasant rectal: deferred : normal male vascular R fem sheath removed now with no hematoma or bleeding Echo reviewed personally: 1. Lower limits of normal systolic function. Normal left ventricular cavity size. Mild concentric left ventricular hypertrophy. Ejection fraction is visually estimated at 50 %. Tissue Doppler/Mitral Doppler indices are consistent with impaired relaxation (Stage I diastolic dysfunction). These segments of the LV are hypokinetic inferior mid segment and inferior apex segment. 2. Normal appearance of the mitral valve. Mild mitral annular calcification. Trace mitral regurgitation. 3. No significant aortic stenosis or insufficiency. Aortic cusps appear mildly calcified. 4. Normal appearance of the tricuspid valve. Unable to obtain RVSP due to minimal presence of tricuspid regurgitation. CXR reviewed. Objective Vital Signs Date Time Temp Pulse Resp B/P Pulse Ox O2 Delivery O2 Flow Rate FiO2 08/17/17 15:39 98.4 97 18 143/84 94 08/17/17 15:19 21 08/17/17 12:50 Room Air 08/17/17 08:00 2.0 Intake and Output 08/16/17 08/16/17 08/17/17 15:00 23:00 07:00 Intake Total 740 ml 800 ml Output Total 1200 ml 950 ml Balance -460 ml -150 ml Results/Medications Result Diagram: 08/16/17 0844 08/17/17 0795 Results 24 hrs Laboratory Tests Test 08/17/17 07:27 Sodium Level 134 L Potassium Level 3.0 L Chloride Level 99 Carbon Dioxide Level 29 Anion Gap 9 # Blood Urea Nitrogen 55 H Creatinine 1.40 H Glucose Level 91 Calcium Level 8.4 Phosphorus Level 2.7 Magnesium Level 2.2 Total Bilirubin 0.4 Direct Bilirubin 0.00 Indirect Bilirubin 0.4 Aspartate Amino Transf (AST/SGOT) 29 Alanine Aminotransferase (ALT/SGPT) 44 Alkaline Phosphatase 113 Total Protein 5.8 L Albumin 2.7 L Globulin 3.10 Albumin/Globulin Ratio 0.87 Medications Current Medications Ondansetron HCl (Zofran Tab) 4 mg Q6H PRN PO NAUSEA AND/OR VOMITING; Start 08/06/17 at 12:00 Ondansetron HCl (Zofran Inj) 4 mg Q6H PRN IV NAUSEA AND/OR VOMITING Last administered on 08/13/17 09:59; Admin Dose 4 MG; Start 08/06/17 at 12:00 Metoclopramide HCl (Reglan) 10 mg Q6H PRN IV NAUSEA AND/OR VOMITING; Start 08/06/17 at 12:00 Acetaminophen (Tylenol Liquid) 650 mg Q6H PRN PO PAIN LEVEL 1-3 OR FEVER; Start 08/06/17 at 12:00 Acetaminophen (Tylenol Tab) 650 mg Q6H PRN PO PAIN LEVEL 1-3 OR FEVER Last administered on 08/10/17 15:48; Admin Dose 650 MG; Start 08/06/17 at 12:00 Acetaminophen/ Hydrocodone Bitart ([place]den (5/325)) 1 tab Q6H PRN PO PAIN LEVEL 4 -6; Start 08/06/17 at 12:00 Docusate Sodium (Colace) 100 mg Q12H PRN PO CONSTIPATION; Start 08/06/17 at 12: 00 Magnesium Hydroxide (Milk Of Mag) 30 ml DAILY PRN PO CONSTIPATION; Start at 12:00 Bisacodyl (Dulcolax) 5 mg DAILY PRN PO CONSTIPATION; Start 08/06/17 at 12:00 Ferrous Sulfate (Ferrous Sulfate (Ec)) 325 mg DAILY PO Last administered on 08:54; Admin Dose 325 MG; Start 08/07/17 at 09:00 Aspirin (Halfprin) 81 mg DAILY PO Last administered on 08/17/17 08:54; Admin Dose 81 MG; Start 08/07/17 at 09:00 Oxycodone/ Acetaminophen (Percocet (5/ 325)) 1 tab Q4H PRN PO REPORTED NON- CARDIAC PAIN 4-7; Start 08/06/17 at 12:00 Morphine Sulfate (morphine) 1 mg Q1H PRN IV PAIN NOT RELIEVED BY OTHERS Last administered on 08/09/17 04:43; Admin Dose 1 MG; Start 08/06/17 at 12:00 Docusate Sodium (Colace) 100 mg BID PO Last administered on 08/17/17 08:54; Admin Dose 100 MG; Start 08/06/17 at 21:00 Atorvastatin Calcium (Lipitor) 80 mg DAILY@21 PO Last administered on 20:17; Admin Dose 80 MG; Start 08/06/17 at 21:00 Carvedilol (Coreg) 3.125 mg BID PO Last administered on 08/17/17 08:55; Admin Dose 3.125 MG; Start 08/09/17 at 21:00 Clopidogrel Bisulfate (plaVIX) 75 mg DAILY NGT Last administered on 08/17/17 08:54; Admin Dose 75 MG; Start 08/12/17 at 09:00 Famotidine (Pepcid) 20 mg DAILY PO Last administered on 08/17/17 08:55; Admin Dose 20 MG; Start 08/16/17 at 09:00 Prednisone (Prednisone) 40 mg DAILY PO Last administered on 08/17/17 08:54; Admin Dose 40 MG; Start 08/17/17 at 09:00 Allopurinol (Zyloprim) 100 mg BID PO Last administered on 08/17/17 08:54; Admin Dose 100 MG; Start 08/16/17 at 21:00 Furosemide (Lasix) 40 mg DAILY PO Last administered on 08/17/17 08:55; Admin Dose 40 MG; Start 08/17/17 at 09:00 Spironolactone (Aldactone) 25 mg DAILY PO Last administered on 08/17/17 08:54 ; Admin Dose 25 MG; Start 08/16/17 at 18:00 Assessment/Plan Chief Complaint/Hosp Course 1. Acute inferior STEMI 2/ S/P emergent thrombectomy/ PCI RCA (using FEDERICO) 3. s/p Cardiogenic shock: BP has improved now 4. s/p recent bacteremia 5. dyslipidemia 6/ abnormal ECG due to above \7. severe and worsening anemia 8/ MARCOS 9. Hypo Mg. : hypo K 10. resp failure/ stridors: pulm input is appreciated. improved but not resolved yet. 11. anemia; stable with negative Guiac stool 12. CHF. on lasix Rec: cont ASA and plavix. I have changed Brilinta to plavix due to concerns about possibly allergy to brilinta which was the new medication for him. ABX PER IM. statin transfusion prn replace Mg, K prn will inc coreg 03/28 bid f/u ENT consult rec f/u renal rec. plavix prescription was given to daughter. Thank you for his referral. I will continue to follow along with you as needed base. . HAYDEN WAGNER MD [facility] Problems: HAYDEN WAGNER MD Aug 17, 2017 15:55
== END 2017-08-17 18:50 | disposition home or self-care (01) | DRG 246 ==
LOC: E/R 10:11 → ICU 10:21 → MS1 08-11 20:50 → ICU 08-11 21:18 → TEL 08-12 23:58
PROVIDERS: ADMIT Internal Medicine; ATTEND Internal Medicine
PROC: 4A023N7 Measurement of Cardiac Sampling and Pressure, Left Heart, Percutaneous Approach (ICD-10-PCS; 2017-08-06)
PROC: B211YZZ Fluoroscopy of Multiple Coronary Arteries using Other Contrast (ICD-10-PCS; 2017-08-06)
PROC: B41FYZZ Fluoroscopy of Right Lower Extremity Arteries using Other Contrast (ICD-10-PCS; 2017-08-06)
PROC: 0CJS8ZZ Inspection of Larynx, Via Natural or Artificial Opening Endoscopic (ICD-10-PCS; 2017-08-06)
PROC: 0BJ18ZZ Inspection of Trachea, Via Natural or Artificial Opening Endoscopic (ICD-10-PCS; 2017-08-06)
PROC: 027034Z Dilation of Coronary Artery, One Artery with Drug-eluting Intraluminal Device, Percutaneous Approach (ICD-10-PCS; principal; 2017-08-06 18:30)
PROC: 02C03ZZ Extirpation of Matter from Coronary Artery, One Artery, Percutaneous Approach (ICD-10-PCS; 2017-08-06 18:30)
DX: I21.19 ST elevation (STEMI) myocardial infarction involving other coronary artery of inferior wall (principal); R57.0 Cardiogenic shock; N17.0 Acute kidney failure with tubular necrosis; J96.90 Respiratory failure, unspecified, unspecified whether with hypoxia or hypercapnia; I50.9 Heart failure, unspecified; E87.2 Acidosis; E87.1 Hypo-osmolality and hyponatremia; I13.0 Hypertensive heart and chronic kidney disease with heart failure and stage 1 through stage 4 chronic kidney disease, or unspecified chronic kidney disease; R06.1 Stridor; N18.9 Chronic kidney disease, unspecified; E78.5 Hyperlipidemia, unspecified; M10.9 Gout, unspecified; E83.42 Hypomagnesemia; D64.9 Anemia, unspecified; E83.9 Disorder of mineral metabolism, unspecified; T50.8X5A Adverse effect of diagnostic agents, initial encounter; Y92.238 Other place in hospital as the place of occurrence of the external cause
CPT/HCPCS: 36430; 36600; 70490; 71010; 71250; 76775; 80048; 80053; 80061; 81001; 81003; 82043; 82270; 82550; 82553; 82803; 83540; 83735; 83880; 84100; 84145; 84155; 84300; 84439; 84443; 84484; 85025; 85610; 85730; 86850; 86900; 86901; 86920; 87040; 87081; 87400; 92610; 93005; 93306; 93458; 93970; 94640; 94664; 97116; 97163; 97166; 97530; J1940; C1725; C1757; C1874; C1887; C1894; C9606; J0583; J1265; J1327; J1644; J2250; J2270; J2405; J2930; J3010; J3475; J7030; J7040; J7512; P9016; Q9967

== ENCOUNTER 2017-08-21 22:46 | Inpatient (IN) | payer OTHER ==
[~2017-08-21] VITALS: Ht 157.5 cm; Wt 65.3 kg
[~2017-08-21 22:46] MED LIST changes: +ASPI-664 PO; +ATOR80TA75 PO; +CARV3.1260 PO; +CLOP75TA28 PO; -DOPamine-D5W 1.6 MG/ML 250 ML ONE; -ENAL10TA PO; +FURO40TA4 PO; -HEPARIN 5,000 UNIT/0.5 ML VIAL ONE; -MELO-216 PO; -NIT4 SL; +SPIR25TA PO; +prednisone taper
[2017-08-21] MEDS ORDERED: SOD CHLORIDE 0.9% 1,000 ML IV STA (23:21)
[2017-08-21] MEDS ORDERED: morphine 4 MG/ML VIAL IV STA (23:21)
[2017-08-21] MEDS ORDERED: ONDANSETRON 4 MG INJ IV STA (23:21)
[2017-08-21 23:50] LABS: BASOPHIL # 0.1 10^3/ul (0.0-0.1); BASOPHILS % 0.6 % (0.0-2.0); EOSINOPHILS # 0.1 10^3/ul (0.0-0.5); EOSINOPHILS % 0.4 % (0.0-7.0); HEMATOCRIT 41.1 % (42.0-52.0); HEMOGLOBIN 13.8 g/dl (14.0-18.0); LYMPHOCYTES # 1.9 10^3/ul (0.8-2.9); LYMPHOCYTES % 10.4 % (15.0-51.0); MEAN CORPUSCULAR HEMOGLOBIN 30.3 pg (29.0-33.0); MEAN CORPUSCULAR HGB CONC 33.6 g/dl (32.0-37.0); MEAN CORPUSCULAR VOLUME 90.3 fl (82.0-101.0); MONOCYTE # 0.5 10^3/ul (0.3-0.9); MONOCYTES % 2.6 % (0.0-11.0); NEUTROPHIL # 15.1 10^3/ul (1.6-7.5); NEUTROPHILS % 81.5 % (39.0-77.0); PLATELET COUNT 372 10^3/UL (140-415); RED BLOOD COUNT 4.55 10^6/ul (4.70-6.10); RED CELL DISTRIBUTION WIDTH 14.7 % (11.5-14.5); WHITE BLOOD COUNT 18.5 10^3/ul (4.8-10.8)
[2017-08-22 01:11] LABS: ALBUMIN 2.9 g/dl (3.3-4.9); ALBUMIN/GLOBULIN RATIO 0.87; BILIRUBIN,INDIRECT 0.6 mg/dl (0-1.1); BILIRUBIN,TOTAL 0.6 mg/dl (0.2-1.3); CREATININE 1.1 mg/dl (0.61-1.24); TOTAL PROTEIN 6.2 g/dl (6.1-8.1)
[2017-08-22 01:12] LABS: POTASSIUM 4.1 mmol/L (3.5-5.1)
--- NOTE | 2017-08-22 01:45 | RADRPT ---
PROCEDURE: CT ABDOMEN/PELVIS WITHOUT CONTRAST CLINICAL INDICATION: 87-year-old male with abdominal pain. TECHNIQUE: The study was performed utilizing a GE [employer] VCT 64-slice CT scanner. Direct axia l sections were obtained through the abdomen and pelvis without the use of intravenous contrast mate rial. Sagittal and coronal reformations were obtained. One or more of the following dose reduction t echniques were utilized: automated exposure control, adjustment of the mA and/or kV according to pat ient's size and/or the use of iterative reconstruction technique. DICOM images are available. The im ages were reviewed on a PACS workstation. CTD/vol = 10.8 mGy; Total Exam DLP = 651.4 mGy-cm. COMPARISON: CT abdomen/pelvis July 23, 2017. FINDINGS: Right coronary artery calcifications are visualized. There is minimal bibasilar subsegmental atelect asis. There is no evidence for significant pleural effusion. The liver has a normal size and conto ur without focal areas of abnormal density. Surgical clips are present within the gallbladder fossa from prior cholecystectomy. There is a dilated right hepatic duct measuring up to 13 mm without sign ificant interval change. No significant extrahepatic biliary ductal dilatation is seen. The pancreas is without areas of abnormal attenuation. The spleen is identified and has a normal size without a bnormal density. The adrenal glands are unremarkable. The kidneys are mildly atrophic bilaterally. T here is a left mid renal cyst measuring approximately 1.9 x 1.5 x 1.1 cm. There is a left lower pole renal cortical cyst measuring approximately 10 x 10 x 9 mm. No hydroureteronephrosis nor nephrouret erolithiasis is evident. The urinary bladder contains urine. There is retained stool within the ascending and transverse colon. The appendix is visualized and is without abnormal thickening or villasenor rrounding inflammatory reaction. There is umbilical hernia noted with an opening of 14 x 18 mm conta ining fat. The aortoiliac vessels are calcified but without aneurysmal dilatation. Degenerative adames ges are present within the spine. There is a compression fracture of the T12 vertebral body with bonnie roximately 40% loss of height with a sclerotic appearance but persistent cleavage plane. There is a compression fracture of the L1 vertebral body with approximately 60% loss of height with a sclerotic appearance and persistent cleavage plane. Bilateral L5 pars defects are noted. There is minimal ant erolisthesis of L5 on S1 with a vacuum disc present and diffuse disc bulge resulting in moderate angela ateral foraminal stenosis. IMPRESSION: 1. Status post cholecystectomy with persistently dilated right hepatic duct. 2. Atrophic kidneys with left renal cysts. 3. Umbilical hernia containing fat. 4. Retained stool without obstruction. 5. No CT evidence for appendicitis. 6. Vascular calcifications. 7. Degenerative changes within the spine with compression fractures of T12 (40%) and L1 (60%) with a sclerotic appearance and cleavage planes again identified suggestive of active process however the se are without significant interval change. Clinical correlation is necessary. 8. L5-S1 spondylolisthesis. .David Koenig MD, Date Time Electronically viewed and signed by .David Koenig MD, on 08/22/2017 01:44 .M/
[2017-08-22] MEDS ORDERED: SOD CHLORIDE 0.9% 1,000 ML IV ONE ×2 (02:30→06:00)
[2017-08-22 03:09] LABS: UR RBC 0 /HPF (0-5)
[2017-08-22 03:10] LABS: ADD UMIC YES; UR ASCORBIC ACID NEGATIVE (NEGATIVE); UR BILIRUBIN (Dip) NEGATIVE (NEGATIVE); UR BLOOD (Dip) 1+ mg/dL (NEGATIVE); UR CLARITY CLEAR (CLEAR); UR COLOR STRAW (YELLOW); UR GLUCOSE (Dip) NEGATIVE (NEGATIVE); UR KETONES (Dip) NEGATIVE (NEGATIVE); UR LEUKOCYTE ESTERASE (Dip) NEGATIVE Leu/ul (NEGATIVE); UR NITRITE (Dip) NEGATIVE (NEGATIVE); UR SPECIFIC GRAVITY (Dip) 1.005 (1.003-1.030); UR TOTAL PROTEIN (Dip) NEGATIVE (NEGATIVE); UR UROBILINOGEN (Dip) NEGATIVE (NEGATIVE)
[2017-08-22 03:30] VITALS: TEMP 98.6
--- NOTE | 2017-08-22 04:52 | RADRPT ---
PROCEDURE: XR Chest. CLINICAL INDICATION: Pain. TECHNIQUE: AP Portable chest. COMPARISON: 03/05/2017 FINDINGS: There is moderate cardiomegaly. The lungs are clear. The osseous structures are unremarkable. IMPRESSION: No acute findings. RPTAT: HIKT .Yordan Shen MD, Date Time Electronically viewed and signed by .Yordan Shen MD, MD on 08/22/2017 04:52 .T/
[2017-08-22] MEDS ORDERED: KETOROLAC 30 MG INJ IV STA (05:38)
[2017-08-22] MEDS ORDERED: morphine 4 MG/ML VIAL IV STA (05:38)
--- NOTE | 2017-08-22 05:53 | ERD ---
ER Documentation Chief Complaint Chief Complaint bib daughter, abdominal pain x 2 days, recent admission to icu ROS All systems reviewed and are negative except as per history of present illness. Medications Home Meds Active Scripts [prednisone taper] No Conflict Check Prov:LORI MIRANDA MD 08/17/17 Furosemide* (Furosemide*) 40 Mg Tablet, 40 MG PO DAILY for 30 Days, #30 TAB Prov:LORI MIRANDA MD 08/17/17 Aspirin* (Aspirin* EC) 81 Mg Tablet.dr, 81 MG PO DAILY for 30 Days, #30 TAB Prov:LORI MIRANDA MD 08/17/17 Spironolactone* (Aldactone*) 25 Mg Tablet, 25 MG PO DAILY for 30 Days, #30 TAB Prov:LORI MIRANDA MD 08/17/17 Carvedilol* (Carvedilol*) 3.125 Mg Tablet, 3.125 MG PO BID for 30 Days, #60 TAB Prov:LORI MIRANDA MD 08/17/17 Atorvastatin* (Atorvastatin*) 80 Mg Tablet, 80 MG PO DAILY@21 for 30 Days, #30 TAB Prov:LORI MIRANDA MD 08/17/17 Clopidogrel Bisulfate (Clopidogrel) 75 Mg Tablet, 75 MG PO DAILY for 30 Days, # 30 TAB Prov:LORI MIRANDA MD 08/17/17 Pantoprazole* (Pantoprazole*) 40 Mg Tablet.dr, 40 MG PO BID for 60 Days, #120 Prov:LORI MIRANDA MD 03/21/17 Reported Medications Ferrous Sulfate* (Ferrous Sulfate*) 325 Mg Tabec, 325 MG PO DAILY, TAB 07/21/17 Allopurinol* (Zyloprim*) 100 Mg Tablet, 100 MG PO BID 02/17/13 Discontinued Reported Medications Nitroglycerin* (Nitrostat*) 0.4 Mg Tab.subl, 0.4 MG SL Q5MIN Y for CHEST PAIN, BOTTLE 07/21/17 Meloxicam* (Meloxicam*) 7.5 Mg Tablet, 7.5 MG PO DAILY, #30 TAB 07/21/17 Enalapril Maleate* (Enalapril Maleate*) 10 Mg Tablet, 10 MG PO DAILY, TAB 09/29/16 Allergies Allergies: Coded Allergies: No Known Allergy (Unverified , 08/06/17) PMhx/Soc History of Surgery: Yes (GALL BLADDER SURGERY, STENTS) Anesthesia Reaction: No Hx Neurological Disorder: No Hx Respiratory Disorders: No Hx Cardiac Disorders: Yes (HTN) Hx Psychiatric Problems: No Hx Miscellaneous Medical Probl: Yes (kidney stones) Hx Alcohol Use: No Hx Substance Use: No Hx Tobacco Use: No Smoking Status: Never smoker Physical Exam Vitals Vital Signs Date Time Temp Pulse Resp B/P Pulse Ox O2 Delivery O2 Flow Rate FiO2 08/22/17 03:30 98.6 75 18 149/71 97 Room Air 08/22/17 01:30 98.6 76 18 123/80 97 Room Air 08/21/17 23:20 98.6 72 18 142/78 96 Room Air 08/21/17 22:51 98.6 85 18 159/74 96 Physical Exam Const: [] Head: Atraumatic Eyes: Normal Conjunctiva ENT: Normal External Ears, Nose and Mouth. Neck: Full range of motion..~ No meningismus. Resp: Clear to auscultation bilaterally Cardio: Regular rate and rhythm, no murmurs Abd: Soft, non tender, non distended. Normal bowel sounds Skin: No petechiae or rashes Back: No midline or flank tenderness Ext: No cyanosis, or edema Neur: Awake and alert Psych: Normal Mood and Affect Result Diagram: 08/21/17 2305 08/22/17 0020 Results 24 hrs Laboratory Tests Test 08/21/17 23:05 08/21/17 23:40 08/22/17 00:20 08/22/17 02:00 White Blood Count 18.510^3/ul Red Blood Count 4.5510^6/ul Hemoglobin 13.8g/dl Hematocrit 41.1% Mean Corpuscular Volume 90.3fl Mean Corpuscular Hemoglobin 30.3pg Mean Corpuscular Hemoglobin Concent 33.6g/dl Red Cell Distribution Width 14.7% Platelet Count 08107^3/UL Mean Platelet Volume 10.0fl Neutrophils % 81.5% Lymphocytes % 10.4% Monocytes % 2.6% Eosinophils % 0.4% Basophils % 0.6% Nucleated Red Blood Cells % 0.0/100WBC Neutrophils # 15.110^3/ul Lymphocytes # 1.910^3/ul Monocytes # 0.510^3/ul Eosinophils # 0.110^3/ul Basophils # 0.110^3/ul Nucleated Red Blood Cells # 0.010^3/ul Lactic Acid Level 2.1mmol/L Sodium Level 132mmol/L Potassium Level 4.1mmol/L Chloride Level 99mmol/L Carbon Dioxide Level 25mmol/L Anion Gap 12 Blood Urea Nitrogen 35mg/dl Creatinine 1.10mg/dl Glucose Level 130mg/dl Calcium Level 8.0mg/dl Total Bilirubin 0.6mg/dl Direct Bilirubin 0.00mg/dl Indirect Bilirubin 0.6mg/dl Aspartate Amino Transf (AST/SGOT) 31IU/L Alanine Aminotransferase (ALT/SGPT) 40IU/L Alkaline Phosphatase 118IU/L Total Protein 6.2g/dl Albumin 2.9g/dl Globulin 3.30g/dl Albumin/Globulin Ratio 0.87 Lipase 364U/L Urine Color STRAW Urine Clarity CLEAR Urine pH 7.0 Urine Specific [place] 1.005 Urine Ketones NEGATIVEmg/dL Urine Nitrite NEGATIVEmg/dL Urine Bilirubin NEGATIVEmg/dL Urine Urobilinogen NEGATIVEmg/dL Urine Leukocyte Esterase NEGATIVELeu/ul Urine Microscopic RBC 0/HPF Urine Microscopic WBC 0/HPF Urine Hemoglobin 1+mg/dL Urine Glucose NEGATIVEmg/dL Urine Total Protein NEGATIVEmg/dl Current Medications Medications (Trade) Dose Ordered Sig/Karthikeyan Route PRN Reason Start Time Stop Time Status Last Admin Dose Admin Sodium Chloride (NS) 1,000 ml @ 1,000 mls/hr Q1H STAT IV 08/21/17 23:21 08/22/17 00:20 DC 08/21/17 23:33 Morphine Sulfate (morphine) 4 mg ONCE STAT IV 08/21/17 23:21 08/21/17 23:24 DC 08/21/17 23:33 Ondansetron HCl 4 mg 4 mg ONCE STAT IV 08/21/17 23:21 08/21/17 23:24 DC 08/21/17 23:32 Sodium Chloride (NS) 1,000 ml @ 1,000 mls/hr Q1H ONCE IV 08/22/17 02:30 08/22/17 03:29 DC 08/22/17 02:20 Morphine Sulfate (morphine) 4 mg ONCE STAT IV 08/22/17 05:38 08/22/17 05:39 DC 08/22/17 05:43 Ketorolac Tromethamine (Toradol) 30 mg ONCE STAT IV 08/22/17 05:38 08/22/17 05:39 DC 08/22/17 05:43 Procedures/MDM Significant leukocytosis difficult to control abdominal pain and patient signs of dehydration and recent STEMI. I definitely with the patient be admitted for hydration. Given normal saline as well as requiring 2 doses of morphine and a dose of Toradol emergency room for quickly returning abdominal pain. Does have constipation on x-ray. Gallbladder surgery was 3 months ago and this is not likely related patient's pain is less in the right upper quadrant and other areas but does encompass his entire abdomen.. Dr. Garcia will be admitting. No signs of cardiac ischemia. EKG interpretation: Normal sinus rhythm rate of 77, left axis deviation, no ST- T wave changes concerning for acute ischemia, normal intervals. CT abdomen pelvis interpretation: Postsurgical changes with dilated hepatic duct , umbilical hernia, constipation, T12-L1 compression fractures were present on prior x-ray. No signs of bowel obstruction, no free air. Departure Diagnosis: Primary Impression: Dehydration Additional Impressions: Lactic acidosis Abdominal pain Protein calorie malnutrition Condition: FRIEDA Griffiths DO Aug 22, 2017 05:53
[2017-08-22] MEDS ORDERED: ACETAMINOPHEN 325 MG TAB PO PRN ×2 (06:00→07:00)
[2017-08-22] MEDS ORDERED: ONDANSETRON 4 MG INJ IV PRN ×2 (06:00→07:00)
[2017-08-22] MEDS ORDERED: NACL 0.9% 3 ML SYG IV SCH (07:00)
[2017-08-22 08:00] VITALS: Ht 157.5 cm; Wt 65.3 kg
[2017-08-22 08:29] VITALS: BP 157/77; RESP 17
--- NOTE | 2017-08-22 09:17 | HP ---
Date/Time of Note Date/Time of Note DATE: 08/22/17 TIME: 09:13 Assessment/Plan VTE Prophylaxis VTE Prophylaxis Intervention: SCD's Lines/Catheters IV [facility]ter Type (from [facility]): Saline Lock Assessment/Plan Assessment/Plan 87 yo M with hx CAD, gout, recent gallstone pancreatitis sp cholecystectomy here with 2 days of abd pain and leukocytosis. No evidence of UTI as pt without c/o dysuria and UA without pyuria, nitrites or LE. No acute intraabdominal pathology on imaging. No diarrhea to suggest CDiff. Clinical picture is consistent with stomach virus. Though patient with leukocytosis, no tachycardia , tachypnea, fever meeting SIRS criteria to suggest sepsis PLAN -hold abx -bland diet -gentle IVFs -trend troponins, likely 2/2 demand. HPI/ROS Admit Date/Time Admit Date/Time Aug 22, 2017 at 05:45 Hx of Present Illness CC abd pain x 2 days HPI 87 yo M well known to me with pmhx gallstone pancreatitis sp cholecystectomy, recent STEMI presented with 2 days of abd pain. Per patient's daughter he had been doing well at home since he was last discharge ~2 weeks ago. He's been participating well in PT, eating and drinking ok at home.2 days ago pt complained of abd pain, daughter put pt on clear liquid diet for the whole day but abd pain did not resolved. Last night given lack of improvement, daughter brought pt to the hospital. No nausea, no vomiting, no diarrhea at home. No new food exposures, no recent sick contacts. No chest pain or SOB. No rashes or LE edema. PMH/Family/Social Past Medical History gout, h/o gallstone pancreatitis sp cholecystectomy c/b post op abscess warranting drainage, recent ESBL EColi bacteremia 2/2 biliary stent removal, CKD , recent STEMI Past Surgical History as above Social History lives in the community Smoking Status: Never smoker Exam/Review of Systems Vital Signs Vitals Vital Signs Date Time Temp Pulse Resp B/P Pulse Ox O2 Delivery O2 Flow Rate FiO2 08/22/17 08:29 98.3 68 17 157/77 98 08/22/17 07:30 Room Air Exam Exam nad EOMI MMM no mrg lungs clear +hyperactive BS no rashes no edema responds to questions appropriately in French labs reviewed, WBCs elevated, slightly elevated troponin, Cr nl, LA wnl, UA unremarkable abd imaging with just retained stool EKG NSR Labs Result Diagram: 08/21/17 2305 08/22/17 0020 Medications Medications Current Medications Sodium Chloride (NS) 1,000 ml @ 75 mls/hr [id number] IV ; Start 08/22/17 at 06:34 Ondansetron HCl (Zofran Inj) 4 mg Q6H PRN IV NAUSEA AND/OR VOMITING; Start at 07:00 Acetaminophen (Tylenol Tab) 650 mg Q6H PRN PO PAIN LEVEL 1-3 OR FEVER; Start 08/22/17 at 07:00 Morphine Sulfate (morphine) 2 mg Q4H PRN IV SEVERE PAIN LEVEL 7-10; Start at 07:00 Docusate Sodium (Colace) 100 mg Q12H PO ; Start 08/22/17 at 07:00 Bisacodyl (Dulcolax) 5 mg DAILY PO ; Start 08/22/17 at 09:00 Allopurinol (Zyloprim) 100 mg BID PO ; Start 08/22/17 at 09:00; Status UNV Aspirin (Halfprin) 81 mg DAILY PO ; Start 08/22/17 at 09:00; Status UNV Atorvastatin Calcium (Lipitor) 80 mg DAILY@21 PO ; Start 08/22/17 at 21:00; Status UNV Carvedilol (Coreg) 3.125 mg BID PO ; Start 08/22/17 at 09:00; Status UNV Clopidogrel Bisulfate (plaVIX) 75 mg DAILY PO ; Start 08/22/17 at 09:00; Status UNV Ferrous Sulfate (Ferrous Sulfate (Ec)) 325 mg DAILY PO ; Start 08/22/17 at 09: 00; Status UNV Pantoprazole (Protonix Tab) 40 mg BID PO ; Start 08/22/17 at 09:00; Status UNV LORI MIRANDA MD Aug 22, 2017 09:16
[2017-08-22] MEDS ORDERED: HYDROCODONE/APAP (5/325) TAB PO PRN (09:30)
[2017-08-22] MEDS ORDERED: METOCLOPRAMIDE 10 MG INJ IV PRN (09:30)
[2017-08-22] MEDS: DOCUSATE SODIUM 100 MG CAP PO SCH ×2 (10:57→20:33)
[2017-08-22] MEDS: SOD CHLORIDE 0.9% 1,000 ML IV SCH ×3 (10:57→22:59)
[2017-08-22] MEDS: PANTOPRAZOLE (EC) 40 MG TAB PO SCH ×2 (10:58→20:33)
[2017-08-22] MEDS: CLOPIDOGREL 75 MG TAB PO SCH (10:58)
[2017-08-22] MEDS: ASPIRIN (EC) 81 MG TAB PO SCH (10:58)
[2017-08-22] MEDS: ALLOPURINOL 100 MG TAB PO SCH ×2 (10:58→20:33)
[2017-08-22] MEDS: BISACODYL (EC) 5 MG TAB PO SCH (10:58)
[2017-08-22] MEDS: FUROSEMIDE 40 MG TAB PO SCH (10:59)
[2017-08-22] MEDS: SPIRONOLACTONE 25 MG TAB PO SCH (11:00)
[2017-08-22] MEDS: FERROUS SULFATE (EC) 325 MG TAB PO SCH (11:40)
[2017-08-22] MEDS: ENOXAPARIN 40 MG/0.4 ML SYG SC SCH (11:40)
[2017-08-22] MEDS: morphine 2 MG INJ IV PRN (12:58)
[2017-08-22 13:18] LABS: BASOPHILS % 0.1 % (0.0-2.0); EOSINOPHILS # 0.1 10^3/ul (0.0-0.5); EOSINOPHILS % 0.4 % (0.0-7.0); HEMATOCRIT 32.8 % (42.0-52.0); LYMPHOCYTES # 2.3 10^3/ul (0.8-2.9); LYMPHOCYTES % 16.4 % (15.0-51.0); MEAN CORPUSCULAR HEMOGLOBIN 30.4 pg (29.0-33.0); MEAN CORPUSCULAR HGB CONC 33.5 g/dl (32.0-37.0); MEAN CORPUSCULAR VOLUME 90.6 fl (82.0-101.0); MEAN PLATELET VOLUME 10.2 fl (7.4-10.4); MONOCYTE # 1.3 10^3/ul (0.3-0.9); MONOCYTES % 9.2 % (0.0-11.0); NEUTROPHIL # 10.2 10^3/ul (1.6-7.5); NEUTROPHILS % 72.1 % (39.0-77.0); PLATELET COUNT 339 10^3/UL (140-415); RED BLOOD COUNT 3.62 10^6/ul (4.70-6.10); WHITE BLOOD COUNT 14.2 10^3/ul (4.8-10.8)
[2017-08-22 14:03] LABS: CK-MB 3.84 ng/ml (0.0-2.4); TROPONIN-I 0.25 ng/ml (0.00-0.12)
[2017-08-22 15:23] VITALS: BP 163/83; RESP 16
[2017-08-22] MEDS: ATORVASTATIN 80 MG TAB PO SCH (20:33)
[2017-08-22 20:36] VITALS: BP 149/75; RESP 18
[2017-08-23 02:25] VITALS: BP 127/68; RESP 18
[2017-08-23 05:53] LABS: BASOPHILS % 0.3 % (0.0-2.0); EOSINOPHILS # 0.3 10^3/ul (0.0-0.5); EOSINOPHILS % 2.8 % (0.0-7.0); HEMATOCRIT 32.9 % (42.0-52.0); HEMOGLOBIN 10.9 g/dl (14.0-18.0); LYMPHOCYTES # 2.3 10^3/ul (0.8-2.9); LYMPHOCYTES % 23.8 % (15.0-51.0); MEAN CORPUSCULAR HEMOGLOBIN 30.3 pg (29.0-33.0); MEAN CORPUSCULAR HGB CONC 33.1 g/dl (32.0-37.0); MEAN CORPUSCULAR VOLUME 91.4 fl (82.0-101.0); MEAN PLATELET VOLUME 10.2 fl (7.4-10.4); MONOCYTE # 0.9 10^3/ul (0.3-0.9); MONOCYTES % 9.3 % (0.0-11.0); NEUTROPHILS % 61.5 % (39.0-77.0); PLATELET COUNT 321 10^3/UL (140-415); WHITE BLOOD COUNT 9.8 10^3/ul (4.8-10.8)
[2017-08-23] MEDS: DOCUSATE SODIUM 100 MG CAP PO SCH ×2 (06:23→19:01)
[2017-08-23] MEDS: SOD CHLORIDE 0.9% 1,000 ML IV SCH ×2 (06:49→15:36)
[2017-08-23 07:16] LABS: ALBUMIN 2.4 g/dl (3.3-4.9); ALBUMIN/GLOBULIN RATIO 0.82; BILIRUBIN,INDIRECT 0.9 mg/dl (0-1.1); BILIRUBIN,TOTAL 0.9 mg/dl (0.2-1.3); CALCIUM 7.6 mg/dl (8.4-10.2); CREATININE 1.18 mg/dl (0.61-1.24); TOTAL PROTEIN 5.3 g/dl (6.1-8.1)
[2017-08-23 07:45] VITALS: BP 160/79; RESP 16
[2017-08-23] MEDS: FERROUS SULFATE (EC) 325 MG TAB PO SCH (09:02)
[2017-08-23] MEDS: CLOPIDOGREL 75 MG TAB PO SCH (09:02)
[2017-08-23] MEDS: SPIRONOLACTONE 25 MG TAB PO SCH (09:02)
[2017-08-23] MEDS: ASPIRIN (EC) 81 MG TAB PO SCH (09:02)
[2017-08-23] MEDS: PANTOPRAZOLE (EC) 40 MG TAB PO SCH ×2 (09:02→22:50)
[2017-08-23] MEDS: ALLOPURINOL 100 MG TAB PO SCH ×2 (09:03→22:50)
[2017-08-23] MEDS: FUROSEMIDE 40 MG TAB PO SCH (09:03)
[2017-08-23] MEDS: BISACODYL (EC) 5 MG TAB PO SCH (09:03)
[2017-08-23] MEDS: ENOXAPARIN 40 MG/0.4 ML SYG SC SCH (09:04)
[2017-08-23 13:08] LABS: ALBUMIN 2.8 g/dl (3.3-4.9); BILIRUBIN,INDIRECT 0.6 mg/dl (0-1.1); BILIRUBIN,TOTAL 0.6 mg/dl (0.2-1.3); CALCIUM 7.5 mg/dl (8.4-10.2); CREATININE 1.24 mg/dl (0.61-1.24); TOTAL PROTEIN 5.6 g/dl (6.1-8.1)
[2017-08-23 14:25] VITALS: BP 157/72; RESP 18
--- NOTE | 2017-08-23 15:23 | PN ---
Date/Time of Note Date/Time of Note DATE: 08/23/17 TIME: 15:21 Assessment/Plan VTE Prophylaxis VTE Prophylaxis Intervention: LMWH Lines/Catheters IV [facility] ([facility] Peripheral IV Urinary Cath still in place: No Assessment/Plan Chief Complaint/Hosp Course Subjective: Probable pain all night. Appears comfortable at present. No fever dyspnea. Positive flatus Objective: Vital signs stable Physical exam No pallor icterus Regular Clear Bowel sounds present nontender nondistended no RAG No edema Assessment and plan 1. Abdominal pain. Pancreatitis? Stable continue supportive care. May consult GI again 2. Abnormal troponin. Potentially demand ischemia Chr CAD. Potentially downtrending from recent CO. 3. Old CO status. Chronic coronary disease. Stable continue risk factor modification 4. Postop day _ lap ashleigh 5. Chronic gout 6. Chronic hypertension. EF of 50. 7. H/o ESBL E. coli. 8. Constipation 9. Dilated right hepatic duct 10. T12/ L1 fracture. MRI. Problems: Exam/Review of Systems Vital Signs Vitals Vital Signs Date Time Temp Pulse Resp B/P Pulse Ox O2 Delivery O2 Flow Rate FiO2 08/23/17 14:25 98.4 76 18 157/72 96 08/22/17 07:30 Room Air Intake and Output 08/22/17 08/22/17 08/23/17 15:00 23:00 07:00 Intake Total 1910 ml 1355 ml Output Total 730 ml 850 ml Balance 1180 ml 505 ml Results Result Diagram: 08/23/17 0452 08/23/17 1223 Results 24 hrs Laboratory Tests Test 08/22/17 18:25 08/23/17 04:52 08/23/17 12:23 Lactic Acid Level 1.4 White Blood Count 9.8 # Red Blood Count 3.60 L Hemoglobin 10.9 L Hematocrit 32.9 L Mean Corpuscular Volume 91.4 Mean Corpuscular Hemoglobin 30.3 Mean Corpuscular Hemoglobin Concent 33.1 Red Cell Distribution Width 15.0 H Platelet Count 321 Mean Platelet Volume 10.2 Neutrophils % 61.5 Lymphocytes % 23.8 Monocytes % 9.3 Eosinophils % 2.8 Basophils % 0.3 Nucleated Red Blood Cells % 0.0 Neutrophils # 6.0 Lymphocytes # 2.3 Monocytes # 0.9 Eosinophils # 0.3 Basophils # 0.0 Nucleated Red Blood Cells # 0.0 Sodium Level 136 134 L Potassium Level 4.0 4.0 Chloride Level 106 105 Carbon Dioxide Level 24 21 Anion Gap 10 12 Blood Urea Nitrogen 29 H 29 H Creatinine 1.18 1.24 Glucose Level 84 # 107 Calcium Level 7.6 L 7.5 L Total Bilirubin 0.9 0.6 Direct Bilirubin 0.00 0.00 Indirect Bilirubin 0.9 0.6 Aspartate Amino Transf (AST/SGOT) 33 35 Alanine Aminotransferase (ALT/SGPT) 34 37 Alkaline Phosphatase 68 88 Total Protein 5.3 L 5.6 L Albumin 2.4 L 2.8 L Globulin 2.90 2.80 Albumin/Globulin Ratio 0.82 1.00 Medications Medications Current Medications Sodium Chloride (NS) 1,000 ml @ 125 mls/hr Q8H IV Last administered on 06:49; Admin Dose 125 MLS/HR; Start 08/22/17 at 06:34 Ondansetron HCl (Zofran Inj) 4 mg Q6H PRN IV NAUSEA AND/OR VOMITING; Start at 07:00 Acetaminophen (Tylenol Tab) 650 mg Q6H PRN PO PAIN LEVEL 1-3 OR FEVER; Start 08/22/17 at 07:00 Morphine Sulfate (morphine) 2 mg Q4H PRN IV SEVERE PAIN LEVEL 7-10 Last administered on 08/22/17 12:58; Admin Dose 2 MG; Start 08/22/17 at 07:00 Docusate Sodium (Colace) 100 mg Q12H PO Last administered on 08/23/17 06:23; Admin Dose 100 MG; Start 08/22/17 at 07:00 Bisacodyl (Dulcolax) 5 mg DAILY PO Last administered on 08/23/17 09:03; Admin Dose 5 MG; Start 08/22/17 at 09:00 Allopurinol (Zyloprim) 100 mg BID PO Last administered on 08/23/17 09:03; Admin Dose 100 MG; Start 08/22/17 at 09:00 Aspirin (Halfprin) 81 mg DAILY PO Last administered on 08/23/17 09:02; Admin Dose 81 MG; Start 08/22/17 at 09:00 Atorvastatin Calcium (Lipitor) 80 mg DAILY@21 PO Last administered on 20:33; Admin Dose 80 MG; Start 08/22/17 at 21:00 Carvedilol (Coreg) 3.125 mg BID PO Last administered on 08/23/17 09:03; Admin Dose 3.125 MG; Start 08/22/17 at 09:00 Clopidogrel Bisulfate (plaVIX) 75 mg DAILY PO Last administered on 08/23/17 09:02; Admin Dose 75 MG; Start 08/22/17 at 09:00 Ferrous Sulfate (Ferrous Sulfate (Ec)) 325 mg DAILY PO Last administered on 09:02; Admin Dose 325 MG; Start 08/22/17 at 09:00 Pantoprazole (Protonix Tab) 40 mg BID PO Last administered on 08/23/17 09:02 ; Admin Dose 40 MG; Start 08/22/17 at 09:00 Metoclopramide HCl (Reglan) 10 mg Q6H PRN IV NAUSEA AND/OR VOMITING; Start at 09:30 Acetaminophen/ Hydrocodone Bitart (Cement (5/325)) 1 tab Q6H PRN PO MODERATE PAIN LEVEL 4-6; Start 08/22/17 at 09:30 Enoxaparin Sodium (Lovenox) 40 mg DAILY SC Last administered on 08/23/17 09: 04; Admin Dose 40 MG; Start 08/22/17 at 10:00 Furosemide (Lasix) 40 mg DAILY PO Last administered on 08/23/17 09:03; Admin Dose 40 MG; Start 08/22/17 at 11:00 Spironolactone (Aldactone) 25 mg DAILY PO Last administered on 08/23/17 09:02 ; Admin Dose 25 MG; Start 08/22/17 at 11:00 REZA ARZATE MD Aug 23, 2017 15:23
[2017-08-23 20:41] VITALS: BP 144/67; RESP 21
[2017-08-23] MEDS: ATORVASTATIN 80 MG TAB PO SCH (22:49)
[2017-08-24 02:43] VITALS: BP 129/86; RESP 21
[2017-08-24] MEDS: SOD CHLORIDE 0.9% 1,000 ML IV SCH ×4 (04:28→22:59)
[2017-08-24 05:58] LABS: BASOPHILS % 0.1 % (0.0-2.0); EOSINOPHILS # 0.3 10^3/ul (0.0-0.5); EOSINOPHILS % 3.2 % (0.0-7.0); HEMATOCRIT 33.1 % (42.0-52.0); HEMOGLOBIN 11.2 g/dl (14.0-18.0); LYMPHOCYTES # 2.1 10^3/ul (0.8-2.9); LYMPHOCYTES % 20.6 % (15.0-51.0); MEAN CORPUSCULAR HEMOGLOBIN 30.4 pg (29.0-33.0); MEAN CORPUSCULAR HGB CONC 33.8 g/dl (32.0-37.0); MEAN CORPUSCULAR VOLUME 89.7 fl (82.0-101.0); MONOCYTE # 1.1 10^3/ul (0.3-0.9); MONOCYTES % 10.3 % (0.0-11.0); NEUTROPHIL # 6.5 10^3/ul (1.6-7.5); NEUTROPHILS % 63.7 % (39.0-77.0); PLATELET COUNT 302 10^3/UL (140-415); RED BLOOD COUNT 3.69 10^6/ul (4.70-6.10); RED CELL DISTRIBUTION WIDTH 15.3 % (11.5-14.5); WHITE BLOOD COUNT 10.3 10^3/ul (4.8-10.8)
[2017-08-24] MEDS: DOCUSATE SODIUM 100 MG CAP PO SCH ×2 (06:15→18:58)
--- NOTE | 2017-08-24 06:17 | RADRPT ---
PROCEDURE: MRI LUMBAR SPINE WITH AND WITHOUT CONTRAST CLINICAL INDICATION: Low back pain without history of trauma or surgery TECHNIQUE: An MRI of the lumbar spine was performed on a 3.0 Elsa MRI scanner utilizing the follo wing sequences: Sagittal T1 weighted, sagittal and dual echo axial T2 weighted, and sagittal T2 weig hted with fat saturation. Following intravenous administration of 7 CC of Magnevist contrast sagitta l and axial T1-weighted sequences are performed with fat saturation in the sagittal plane. No compl ications ensued. COMPARISON: CT abdomen and pelvis dated August 21, 2017 FINDINGS: There is a normal lordosis of the lumbar spine. Grade1 spondylolisthesis of L5 on S1 is present with bilateral L5 spondylolysis. The vertebral bodies are remarkable for acute compression fracture defo rmities of the T12 and L1 vertebral bodies with hyperintensity and in representing edema noted on th e T2 fat saturation sequences. Approximately 50% vertebral body height loss is noted at T12 and 55% vertebral body height loss at L1. Minimal superior retropulsion of the T12 vertebral body fracture w ith posterior vertebral involvement is noted. This contributes to mild central canal stenosis at thi s level. The remainder the vertebral body heights are normal. The intervertebral discs demonstrate disc desiccation at the L2-3 through L5-S1 levels with vacuum phenomenon noted at the L2-3 and L5-S1 . The conus medullaris terminates normally at the L1 level. The bilateral paravertebral soft tissue s are remarkable for bilateral renal atrophy with multiple left renal cortical cysts present. The specific axial levels are as follows: T11-12: The intervertebral disc is normal. The central canal, subarticular recess and neural forame n are patent. At the mid T12 level retropulsion of the acute vertebral body fracture at this level contributes to an AP canal dimension of 9 mm resulting in mild central canal stenosis. T12 - L1: The disc is apparently widened secondary to adjacent compression fracture deformities. Mi ld bilateral facet arthropathy is present. The central canal, subarticular recess and neural foramen are patent. L1 - L2: The intervertebral disc is widened secondary to adjacent L1 vertebral body compression fra cture. The central canal, subarticular recess and neural foramen are patent. L2 - L3: Degenerative endplate and disc changes are present at this level with vacuum phenomenon. A mild 3-mm a eccentric bulge to the right is noted with an associated large right vertebral osteophy te. Mild bilateral facet arthropathy and ligamentum hypertrophy is present. No significant central canal stenosis is present. Mild right subarticular recess stenosis and moderate right neural foramin al stenosis is present. The left neural foramen and subarticular recess is mildly narrowed. L3 - L4: Disc desiccation is present with a mild 2 mm broad-based bulge. Moderate bilateral facet a rthropathy is present. AP canal dimension is 6.7 mm. Moderate to severe central canal stenosis, bila teral subarticular recess stenosis and moderate bilateral neural foraminal stenosis is present. L4 - L5: Disc desiccation is present. A large broad-based bulge is present with moderate bilateral facet arthropathy. AP canal dimension is 8 mm. This results in a mild central canal stenosis, bilate ral severe subarticular recess stenosis and severe left greater than right neural foraminal stenosis . L5 - S1: Mild disc desiccation and vacuum phenomenon and disc space height loss is present. A large broad-based bulge is present. Moderate bilateral facet arthropathy is present with facet effusions. AP canal dimension is 9.3 mm. This results in a mild central canal stenosis, bilateral subarticular recess stenosis and severe bilateral neural foraminal stenosis. Grade 1 spondylolisthesis of L5 and S1 is again noted with bilateral spondylolysis. IMPRESSION: 1. Acute T12 and L1 vertebral body fractures with approximately 50% and 55% vertebral body height l oss respectively. 2. Mild retropulsion of the T12 superior posterior vertebral body fracture into the spinal canal wit h mild central canal stenosis. 3. Grade 1 spondylolisthesis of L5 on S1 with bilateral L5 spondylolysis. 4. Multilevel broad-based disc osteophyte complexes at the L2-3 through L5-S1 levels with moderate t o severe central canal stenosis at L3-4 and mild at L4-5 and L5-S1. 5. Multilevel neural foraminal stenosis at the L2-3 through L5-S1 levels with severe left greater th an right neural foraminal stenosis at L4-5 and bilateral at L5-S1. Please refer to specific levels n oted above for detailed evaluation. 6. Multilevel facet and ligamentum flavum osteoarthropathy. RPTAT: CASANDRA .Patricia Mackay MD, MD Date Time Electronically viewed and signed by .Patricia Mackay MD, MD on 08/24/2017 06:16 .C/
[2017-08-24 06:40] LABS: PROTIME 13.2 Sec (12.2-14.2)
[2017-08-24 06:45] LABS: ALBUMIN 2.6 g/dl (3.3-4.9); ALBUMIN/GLOBULIN RATIO 0.92; BILIRUBIN,INDIRECT 0.9 mg/dl (0-1.1); BILIRUBIN,TOTAL 0.9 mg/dl (0.2-1.3); CALCIUM 7.5 mg/dl (8.4-10.2); CREATININE 1.27 mg/dl (0.61-1.24); PHOSPHORUS 3.2 mg/dl (2.5-4.9); POTASSIUM 3.6 mmol/L (3.5-5.1); TOTAL PROTEIN 5.4 g/dl (6.1-8.1)
--- NOTE | 2017-08-24 06:45 | RADRPT ---
PROCEDURE: MRI thoracic spine with and without IV contrast CLINICAL INDICATION: Low back pain. TECHNIQUE: An MRI of the thoracic spine was performed utilizing the following sequences: Pre and p ostcontrast sagittal and axial T1 weighted, sagittal and axial T2 weighted, and sagittal T2 fat satu ration. Contrast:: 7 cc of Magnevist. COMPARISON: Correlation with MRI lumbar spine same date. FINDINGS: Again demonstrated are acute compression fractures of the T12 and L1 vertebral bodies with height loss of 50% and 55% respectively as were seen on MRI lumbar spine of the same date. There ar e no additional acute fractures of the thoracic spine. The remaining thoracic vertebral bodies are u niform in height and are anatomically aligned. Mild disc space loss involves T5-T6 and T6-T7. The co nus medullaris terminates at the L1 level. There is no pathologic signal is present within the thora cic spinal cord. No pathologic enhancement is demonstrated. There is no abnormal signal within the p revertebral or paraspinal soft tissues. IMPRESSION: 1. Acute compression fractures of the T12 and L1 vertebral bodies with height loss of 50% and 55% re spectively. Refer to dedicated MRI examination of the lumbar spine of the same day for full details. 2. Mild disc space loss T5-C6 and T6-T7. RPTAT: HRSR Physician Luciana Date Time Electronically viewed and signed by Physician Luciana on 08/24/2017 06:44 RR/
[2017-08-24 06:49] LABS: MAGNESIUM 0.7 mg/dl (1.7-2.5)
[2017-08-24 06:52] LABS: TROPONIN-I 0.197 ng/ml (0.00-0.12)
[2017-08-24] MEDS ORDERED: MAGNESIUM SULFATE IV ONE (07:00)
[2017-08-24] MEDS ORDERED: DEXTROSE 5% IV ONE (07:00)
[2017-08-24 07:36] VITALS: BP 156/89; RESP 18
[2017-08-24] MEDS: MAGNESIUM SULFATE 4 GM in DEXTROSE 5% 100 ML IV SCH ×2 (08:28→12:55)
[2017-08-24] MEDS: ASPIRIN (EC) 81 MG TAB PO SCH (08:31)
[2017-08-24] MEDS: BISACODYL (EC) 5 MG TAB PO SCH (08:31)
[2017-08-24] MEDS: ALLOPURINOL 100 MG TAB PO SCH ×2 (08:31→20:48)
[2017-08-24] MEDS: SPIRONOLACTONE 25 MG TAB PO SCH (08:31)
[2017-08-24] MEDS: CLOPIDOGREL 75 MG TAB PO SCH (08:31)
[2017-08-24] MEDS: ENOXAPARIN 40 MG/0.4 ML SYG SC SCH (08:32)
[2017-08-24] MEDS: PANTOPRAZOLE (EC) 40 MG TAB PO SCH (08:33)
--- NOTE | 2017-08-24 15:03 | PN ---
Date/Time of Note Date/Time of Note DATE: 08/24/17 TIME: 15:02 Assessment/Plan VTE Prophylaxis VTE Prophylaxis Intervention: LMWH Lines/Catheters IV Catheter Type (from [facility]): Peripheral IV Urinary Cath still in place: No Assessment/Plan Chief Complaint/Hosp Course S 08/24: Probable pain all night. Appears comfortable at present. No fever dyspnea. Positive flatus 08/24: no events O: Vss PE No pallor icterus Reg Clear Bs+ nontender nondistended no RRG No edema Assessment and plan 1. Abdominal pain. Pancreatitis? Stable continue supportive care. May consult GI again 2. Abnormal troponin. Potentially demand ischemia Chr CAD. Potentially downtrending from recent MS. 3. Old MS status. Chronic coronary disease. Stable continue risk factor modification 4. Postop day _ lap ashleigh 5. Chronic gout 6. Chronic hypertension. EF of 50. 7. H/o ESBL E. coli. 8. Constipation 9. Dilated right hepatic duct 10. T12/ L1 fracture. MRI. NS eval/ brace/ PT Problems: Exam/Review of Systems Vital Signs Vitals Vital Signs Date Time Temp Pulse Resp B/P Pulse Ox O2 Delivery O2 Flow Rate FiO2 08/24/17 07:36 98.3 85 18 156/89 95 08/22/17 07:30 Room Air Intake and Output 08/23/17 08/23/17 08/24/17 15:00 23:00 07:00 Intake Total 1620 ml 1370 ml Output Total 1800 ml 1602 ml Balance -180 ml -232 ml Results Result Diagram: 08/24/17 0527 08/24/17 0527 Results 24 hrs Laboratory Tests Test 08/24/17 05:27 White Blood Count 10.3 Red Blood Count 3.69 L Hemoglobin 11.2 L Hematocrit 33.1 L Mean Corpuscular Volume 89.7 Mean Corpuscular Hemoglobin 30.4 Mean Corpuscular Hemoglobin Concent 33.8 Red Cell Distribution Width 15.3 H Platelet Count 302 Mean Platelet Volume 10.0 Neutrophils % 63.7 Lymphocytes % 20.6 Monocytes % 10.3 Eosinophils % 3.2 Basophils % 0.1 Nucleated Red Blood Cells % 0.0 Neutrophils # 6.5 Lymphocytes # 2.1 Monocytes # 1.1 H Eosinophils # 0.3 Basophils # 0.0 Nucleated Red Blood Cells # 0.0 Prothrombin Time 13.2 Prothrombin Time Ratio 1.0 INR International Normalized Ratio 1.00 Sodium Level 135 Potassium Level 3.6 Chloride Level 105 Carbon Dioxide Level 24 Anion Gap 10 Blood Urea Nitrogen 28 H Creatinine 1.27 H Glucose Level 89 Calcium Level 7.5 L Phosphorus Level 3.2 Magnesium Level 0.7 *L Total Bilirubin 0.9 Direct Bilirubin 0.00 Indirect Bilirubin 0.9 Aspartate Amino Transf (AST/SGOT) 35 Alanine Aminotransferase (ALT/SGPT) 36 Alkaline Phosphatase 77 Troponin I 0.197 *H Total Protein 5.4 L Albumin 2.6 L Globulin 2.80 Albumin/Globulin Ratio 0.92 Lipase 263 Medications Medications Current Medications Sodium Chloride (NS) 1,000 ml @ 75 mls/hr [id number] IV Last administered on 04:28; Admin Dose 100 MLS/HR; Start 08/22/17 at 06:34 Ondansetron HCl (Zofran Inj) 4 mg Q6H PRN IV NAUSEA AND/OR VOMITING; Start at 07:00 Acetaminophen (Tylenol Tab) 650 mg Q6H PRN PO PAIN LEVEL 1-3 OR FEVER; Start 08/22/17 at 07:00 Morphine Sulfate (morphine) 2 mg Q4H PRN IV SEVERE PAIN LEVEL 7-10 Last administered on 08/22/17 12:58; Admin Dose 2 MG; Start 08/22/17 at 07:00 Docusate Sodium (Colace) 100 mg Q12H PO Last administered on 08/24/17 06:15; Admin Dose 100 MG; Start 08/22/17 at 07:00 Bisacodyl (Dulcolax) 5 mg DAILY PO Last administered on 08/24/17 08:31; Admin Dose 5 MG; Start 08/22/17 at 09:00 Allopurinol (Zyloprim) 100 mg BID PO Last administered on 08/24/17 08:31; Admin Dose 100 MG; Start 08/22/17 at 09:00 Aspirin (Halfprin) 81 mg DAILY PO Last administered on 08/24/17 08:31; Admin Dose 81 MG; Start 08/22/17 at 09:00 Atorvastatin Calcium (Lipitor) 80 mg DAILY@21 PO Last administered on 22:49; Admin Dose 80 MG; Start 08/22/17 at 21:00 Carvedilol (Coreg) 3.125 mg BID PO Last administered on 08/24/17 08:31; Admin Dose 3.125 MG; Start 08/22/17 at 09:00 Clopidogrel Bisulfate (plaVIX) 75 mg DAILY PO Last administered on 08/24/17 08:31; Admin Dose 75 MG; Start 08/22/17 at 09:00 Pantoprazole (Protonix Tab) 40 mg BID PO Last administered on 08/24/17 08:33 ; Admin Dose 40 MG; Start 08/22/17 at 09:00 Metoclopramide HCl (Reglan) 10 mg Q6H PRN IV NAUSEA AND/OR VOMITING; Start at 09:30 Acetaminophen/ Hydrocodone Bitart (Morrison (5/325)) 1 tab Q6H PRN PO MODERATE PAIN LEVEL 4-6; Start 08/22/17 at 09:30 Enoxaparin Sodium 40 mg 40 mg DAILY SC Last administered on 08/24/17 08:32; Admin Dose 40 MG; Start 08/22/17 at 10:00 Magnesium Sulfate/ Dextrose (Magnesium Sulfate/D5W) 108 ml @ 27 mls/hr Q4H IV Last administered on 08/24/17 12:55; Admin Dose 27 MLS/HR; Start 08/24/17 at 08:30; Stop 08/24/17 at 16:29 REZA ARZATE MD Aug 24, 2017 15:03
--- NOTE | 2017-08-24 16:18 | CONS ---
Date/Time of Note Date/Time of Note DATE: 08/24/17 TIME: 15:55 Assessment/Plan Assessment/Plan Chief Complaint/Hosp Course Summary Assessment and Plan: Assessment: Abdominal pain. poss r/t resolving pancreatitis Hypomagnesemia/replaced Elevated troponins/ trending down Hx of recent cholecystectomy Dilated right hepatic duct, not completely uncommon post cholecystectomy- will order further work-up CAD Chronic gout HTN T12/ L1 fracture. Plan: MRCP- to r/o abnormalities of the hepatic duct D/c PPI- to reduce risk of malabsorption r/t magnesium Patient seen in collaboration with Dr. Burgess Chief Complaint/Reason for Visit: Abdominal pain History of Present Illness: This is an 87-year-old [place]inyar[place]-speaking male alert and oriented to name and place. Patient seems very forgetful at time of exam, therefore HPI is limited and much of information was obtained from previous medical records. There is a past medical history of recent gallstone pancreatitis status post cholecystectomy, recent STEMI during last hospitalization and DOMINGA was completed with ejection fraction of 50%, CAD, gout, HTN. He presented to the hospital with abd pain x2days. Upon initial workup patient found to have leukocytosis ( now resolved), elevated troponins 0.270 (trending down, today level is 0.197) Lipase down to be minimally elevated at time of initial work-up 364, recheck today's value 263, Magnesium level was checked showing a results of 0.7, replacement was ordered and given this am. Ct abd/pelvis without contrast was reviewed and copied below Status post cholecystectomy with persistently dilated right hepatic duct, atrophic kidneys with left renal cysts, umbilical hernia containing fat., retained stool without obstruction, no CT evidence for appendicitis, vascular calcifications, degenerative changes within the spine with compression fractures of T12 (40%) and L1 (60%) with a sclerotic appearance and cleavage planes again identified suggestive of active process however these are without significant interval change. Clinical correlation is necessary, L5-S1 spondylolisthesis Currently patient is denying any abdominal pain, nausea/vomiting,diarrhea, constipation, hematemesis, hematochezia, with clinical presentation will plan to continue to monitor patient, will DC PPI as it can prevent absorption of magnesium. Abdominal pain likely secondary to hypomagnesemia vs possible pancreatitis. Past Medical History: Recent gallbladder pancreatitis status post cholecystectomy c/b post op abscess warranting drainage Recent ESBL E.Coli bacteremia Gout Hypertension CKD Recent STEMI Allergies: No known Allergies PHYSICAL EXAMINATION: GENERAL: Well developed, well nourished, alert & oriented to name and place, in no acute distress SKIN: No lesions, no stigmata chronic liver disease, no evidence of bleeding diathesis LYMPHATIC: No palpable lymphadenopathy. HEAD: Normocephalic, atraumatic, no tenderness. EYES: Pupils equal reactive to light and accommodation, full extraocular movements, sclera clear, non-icteric, no discharge. EARS/NOSE AND THROAT: Ears normal, nose normal, oropharynx normal, oral membranes well hydrated without lesions. NECK: Supple, no masses, thyroid normal, JVP within normal limits, carotids normal without bruits. CHEST: Inspection within normal limits. CARDIOVASCULAR: Heart: Regular rate and rhythm, no murmurs, gallops or rubs. GASTROINTESTINAL AND LIVER: Abdomen: Soft, non tenderness, non-distended, no hernias, no masses, no organomegaly, no ascites, no guarding, no rebound tenderness, normoactive bowel sounds. Rectal: Deferred. GENITOURINARY:Male genitalia within normal limits. EXTREMITIES: No cyanosis, clubbing or edema. Problems: Consultation Date/Type/Reason Admit Date/Time Aug 22, 2017 at 05:45 Date of Consultation: Aug 24, 2017 Type of Consultation: GI Reason for Consultation Abdominal pain Review of Systems: Gastrointestinal and liver: Negative for: Anorexia, dysphagia, odynophagia, pyrosis, regurgitation, nausea, vomiting, early satiety, bloating, abdominal pain, food intolerance, diarrhea, constipation, change in bowel habits, hematemesis, melena, hematochezia, and rectal symptoms, incontinence, jaundice. Constitutional: no complaints Eyes: no complaints ENT: no complaints Respiratory: no complaints Cardiovascular: no complaints Gastrointestinal: no complaints Genitourinary: no complaints Musculoskeletal: no complaints Skin: no complaints Past Medical History Medical History: coronary artery disease, pancreatitis (secondary to gallstones ) Past Surgical History Past Surgical Hx: cholecystectomy Social History Alcohol Use: none Smoking Status: Never smoker Drug Use: none Exam/Review of Systems Vital Signs Vitals Vital Signs Date Time Temp Pulse Resp B/P Pulse Ox O2 Delivery O2 Flow Rate FiO2 08/24/17 07:36 98.3 85 18 156/89 95 08/22/17 07:30 Room Air Intake and Output 1108/23/17 08/24/17 15:00 23:00 07:00 Intake Total 1620 ml 1370 ml Output Total 1800 ml 1602 ml Balance -180 ml -232 ml Results Result Diagram: 08/24/17 0527 08/24/17 0527 Results 24 hrs Laboratory Tests Test 08/24/17 05:27 White Blood Count 10.3 Red Blood Count 3.69 L Hemoglobin 11.2 L Hematocrit 33.1 L Mean Corpuscular Volume 89.7 Mean Corpuscular Hemoglobin 30.4 Mean Corpuscular Hemoglobin Concent 33.8 Red Cell Distribution Width 15.3 H Platelet Count 302 Mean Platelet Volume 10.0 Neutrophils % 63.7 Lymphocytes % 20.6 Monocytes % 10.3 Eosinophils % 3.2 Basophils % 0.1 Nucleated Red Blood Cells % 0.0 Neutrophils # 6.5 Lymphocytes # 2.1 Monocytes # 1.1 H Eosinophils # 0.3 Basophils # 0.0 Nucleated Red Blood Cells # 0.0 Prothrombin Time 13.2 Prothrombin Time Ratio 1.0 INR International Normalized Ratio 1.00 Sodium Level 135 Potassium Level 3.6 Chloride Level 105 Carbon Dioxide Level 24 Anion Gap 10 Blood Urea Nitrogen 28 H Creatinine 1.27 H Glucose Level 89 Calcium Level 7.5 L Phosphorus Level 3.2 Magnesium Level 0.7 *L Total Bilirubin 0.9 Direct Bilirubin 0.00 Indirect Bilirubin 0.9 Aspartate Amino Transf (AST/SGOT) 35 Alanine Aminotransferase (ALT/SGPT) 36 Alkaline Phosphatase 77 Troponin I 0.197 *H Total Protein 5.4 L Albumin 2.6 L Globulin 2.80 Albumin/Globulin Ratio 0.92 Lipase 263 Medications Medications Current Medications Sodium Chloride (NS) 1,000 ml @ 75 mls/hr [id number] IV Last administered on 04:28; Admin Dose 100 MLS/HR; Start 08/22/17 at 06:34 Ondansetron HCl (Zofran Inj) 4 mg Q6H PRN IV NAUSEA AND/OR VOMITING; Start at 07:00 Acetaminophen (Tylenol Tab) 650 mg Q6H PRN PO PAIN LEVEL 1-3 OR FEVER; Start 08/22/17 at 07:00 Morphine Sulfate (morphine) 2 mg Q4H PRN IV SEVERE PAIN LEVEL 7-10 Last administered on 08/22/17 12:58; Admin Dose 2 MG; Start 08/22/17 at 07:00 Docusate Sodium (Colace) 100 mg Q12H PO Last administered on 08/24/17 06:15; Admin Dose 100 MG; Start 08/22/17 at 07:00 Bisacodyl (Dulcolax) 5 mg DAILY PO Last administered on 08/24/17 08:31; Admin Dose 5 MG; Start 08/22/17 at 09:00 Allopurinol (Zyloprim) 100 mg BID PO Last administered on 08/24/17 08:31; Admin Dose 100 MG; Start 08/22/17 at 09:00 Aspirin (Halfprin) 81 mg DAILY PO Last administered on 08/24/17 08:31; Admin Dose 81 MG; Start 08/22/17 at 09:00 Atorvastatin Calcium (Lipitor) 80 mg DAILY@21 PO Last administered on 22:49; Admin Dose 80 MG; Start 08/22/17 at 21:00 Carvedilol (Coreg) 3.125 mg BID PO Last administered on 08/24/17 08:31; Admin Dose 3.125 MG; Start 08/22/17 at 09:00 Clopidogrel Bisulfate (plaVIX) 75 mg DAILY PO Last administered on 08/24/17 08:31; Admin Dose 75 MG; Start 08/22/17 at 09:00 Pantoprazole (Protonix Tab) 40 mg BID PO Last administered on 08/24/17 08:33 ; Admin Dose 40 MG; Start 08/22/17 at 09:00 Metoclopramide HCl (Reglan) 10 mg Q6H PRN IV NAUSEA AND/OR VOMITING; Start at 09:30 Acetaminophen/ Hydrocodone Bitart ([place] (5/325)) 1 tab Q6H PRN PO MODERATE PAIN LEVEL 4-6; Start 08/22/17 at 09:30 Enoxaparin Sodium 40 mg 40 mg DAILY SC Last administered on 08/24/17 08:32; Admin Dose 40 MG; Start 08/22/17 at 10:00 Magnesium Sulfate/ Dextrose (Magnesium Sulfate/D5W) 108 ml @ 27 mls/hr Q4H IV Last administered on 08/24/17 12:55; Admin Dose 27 MLS/HR; Start 08/24/17 at 08:30; Stop 08/24/17 at 16:29 Copies To: CC: CALVIN BURGESS MD, VICTORIA Aug 24, 2017 16:13 NOHEMI SIEGEL Aug 24, 2017 16:13
[2017-08-24 19:45] VITALS: BP 132/70; RESP 20
[2017-08-24] MEDS: ATORVASTATIN 80 MG TAB PO SCH (20:48)
[2017-08-25 02:09] VITALS: BP 110/55; RESP 20
[2017-08-25] MEDS: SOD CHLORIDE 0.9% 1,000 ML IV SCH ×2 (05:46→18:49)
[2017-08-25 05:51] LABS: BASOPHILS % 0.1 % (0.0-2.0); EOSINOPHILS # 0.3 10^3/ul (0.0-0.5); EOSINOPHILS % 2.5 % (0.0-7.0); HEMATOCRIT 31.6 % (42.0-52.0); HEMOGLOBIN 10.7 g/dl (14.0-18.0); LYMPHOCYTES # 2.2 10^3/ul (0.8-2.9); LYMPHOCYTES % 17.9 % (15.0-51.0); MEAN CORPUSCULAR HEMOGLOBIN 30.5 pg (29.0-33.0); MEAN CORPUSCULAR HGB CONC 33.9 g/dl (32.0-37.0); MEAN PLATELET VOLUME 9.7 fl (7.4-10.4); MONOCYTES % 8.7 % (0.0-11.0); NEUTROPHIL # 8.4 10^3/ul (1.6-7.5); NEUTROPHILS % 69.9 % (39.0-77.0); PLATELET COUNT 251 10^3/UL (140-415); RED BLOOD COUNT 3.51 10^6/ul (4.70-6.10); RED CELL DISTRIBUTION WIDTH 15.7 % (11.5-14.5)
[2017-08-25] MEDS: DOCUSATE SODIUM 100 MG CAP PO SCH ×2 (06:04→20:15)
[2017-08-25 06:19] LABS: ALBUMIN 2.6 g/dl (3.3-4.9); ALBUMIN/GLOBULIN RATIO 0.86; BILIRUBIN,INDIRECT 1.2 mg/dl (0-1.1); BILIRUBIN,TOTAL 1.2 mg/dl (0.2-1.3); CREATININE 1.17 mg/dl (0.61-1.24); TOTAL PROTEIN 5.6 g/dl (6.1-8.1)
[2017-08-25 08:32] VITALS: BP 166/70; RESP 20
[2017-08-25] MEDS: CLOPIDOGREL 75 MG TAB PO SCH (08:46)
[2017-08-25] MEDS: ALLOPURINOL 100 MG TAB PO SCH ×2 (08:46→20:15)
[2017-08-25] MEDS: BISACODYL (EC) 5 MG TAB PO SCH (08:46)
[2017-08-25] MEDS: ASPIRIN (EC) 81 MG TAB PO SCH (08:46)
[2017-08-25] MEDS: ENOXAPARIN 40 MG/0.4 ML SYG SC SCH (08:47)
[2017-08-25 10:25] VITALS: BP 158/70; PULSE 98
--- NOTE | 2017-08-25 13:20 | RADRPT ---
PROCEDURE: MR Abdomen and MRCP. CLINICAL INDICATION: Rule out hepatic duct obstruction. History of cholecystectomy. TECHNIQUE: MRI abdomen without IV contrast and MRCP was performed on a high-resolution high field scanner. 3-D coronal rotating MIP images of the biliary tree are available for review. COMPARISON: MR 08/23/2017; CT 08/21/2017 FINDINGS: Limited evaluation secondary to motion artifact. MRI Abdomen: The lung bases are clear. The heart size is within normal limits. There is no significant pericardia l effusion. Hepatic morphology is within limits. There is a 1.2 cm cyst within the posterior right lobe of the l iver and 1.1 cm cyst within the left lobe of the liver. The spleen is decreased in size. The pancreas appears to within normal limits. No gross abnormal mas ses. Both adrenal glands are within limits. Both kidneys are and normal anatomic position. Bilateral leny l cysts are noted. There is bilateral renal cortical scarring. No evidence of obstruction or hydrone phrosis. The visualized GI tract demonstrates a small hiatal hernia. Normal caliber loops of small and large bowel noted. No evidence of bowel obstruction. Mild atherosclerotic calcifications of the aorta. There is no significant retroperitoneal lymphadeno espinoza. There is multilevel degenerative disease of the spine. The spinal canal otherwise appears to be with in limits. MRCP: Status post cholecystectomy. The common bile duct is normal size and within limits. There is unchang ed dilatation of the cystic duct remnant. No evidence of intrahepatic biliary ductal dilatation. No gross abnormal filling defects. The pancreatic duct is unremarkable. IMPRESSION: 1. Status post cholecystectomy. The common bile duct is normal size and within limits without gross abnormal filling defects. There is focal dilated cystic duct remnant. No other gross abnormality. N o abnormal filling defects. No evidence of intrahepatic biliary dilatation. The pancreatic duct is w ithin normal limits. 2. Hepatic cysts. 3. Bilateral renal cysts and cortical scarring. No obstruction or hydronephrosis. 4. Small hiatal hernia. No evidence of bowel obstruction. RPTAT: AAPP Physician Melvi Date Time Electronically viewed and signed by Physician Melvi on 08/25/2017 13:20 JL/
[2017-08-25] MEDS: morphine 2 MG INJ IV PRN (14:08)
--- NOTE | 2017-08-25 15:19 | PN ---
Date/Time of Note Date/Time of Note DATE: 08/25/17 TIME: 15:13 Assessment/Plan VTE Prophylaxis VTE Prophylaxis Intervention: SCD's Lines/Catheters [facility] Peripheral IV Urinary Cath still in place: No Assessment/Plan Chief Complaint/Hosp Course Summary Assessment and Plan: Assessment: Abdominal pain. poss r/t resolving pancreatitis Hypomagnesemia/replaced Elevated troponins/ trending down Hx of recent cholecystectomy Dilated right hepatic duct, not completely uncommon post cholecystectomy- will order further work-up CAD Chronic gout HTN T12/ L1 fracture. Plan: MRCP - reviewed and copied below Status post cholecystectomy. The common bile duct is normal size and within limits without gross abnormal filling defects. There is focal dilated cystic duct remnant. No other gross abnormality. No abnormal filling defects. No evidence of intrahepatic biliary dilatation. The pancreatic duct is within normal limits. Hepatic cysts. Bilateral renal cysts and cortical scarring. No obstruction or hydronephrosis. Small hiatal hernia. No evidence of bowel obstruction. Will start H2 bryan, and will continue to hold PPI at this time Patient seen in collaboration with Dr. Burgess Subjective: Course reviewed with nursing staff Patient interviewed and examined All labs, imaging and other results reviewed The patient doing well, no c/o abdominal pain, nausea or vomiting. Will start H2 bryan (low dose), and will keep patient off PPI Continue to monitor H/H. PHYSICAL EXAMINATION: GENERAL: Well developed, well nourished, alert & oriented to name and place, in no acute distress SKIN: No lesions, no stigmata chronic liver disease, no evidence of bleeding diathesis LYMPHATIC: No palpable lymphadenopathy. HEAD: Normocephalic, atraumatic, no tenderness. EYES: Pupils equal reactive to light and accommodation, full extraocular movements, sclera clear, non-icteric, no discharge. EARS/NOSE AND THROAT: Ears normal, nose normal, oropharynx normal, oral membranes well hydrated without lesions. NECK: Supple, no masses, thyroid normal, JVP within normal limits, carotids normal without bruits. CHEST: Inspection within normal limits. CARDIOVASCULAR: Heart: Regular rate and rhythm, no murmurs, gallops or rubs. GASTROINTESTINAL AND LIVER: Abdomen: Soft, non tenderness, non-distended, no hernias, no masses, no organomegaly, no ascites, no guarding, no rebound tenderness, normoactive bowel sounds. Rectal: Deferred. GENITOURINARY:Male genitalia within normal limits. EXTREMITIES: No cyanosis, clubbing or edema. Problems: Exam/Review of Systems Vital Signs Vitals Vital Signs Date Time Temp Pulse Resp B/P Pulse Ox O2 Delivery O2 Flow Rate FiO2 08/25/17 10:25 98 158/70 08/25/17 08:32 98.6 20 96 08/22/17 07:30 Room Air Intake and Output 08/24/17 08/24/17 08/25/17 15:00 23:00 07:00 Intake Total 108 ml 468 ml 1290 ml Output Total 600 ml 350 ml Balance 108 ml -132 ml 940 ml Results Result Diagram: 08/25/17 0538 08/25/17 0538 Results 24 hrs Laboratory Tests Test 08/24/17 17:15 08/25/17 05:38 Magnesium Level 3.6 #H White Blood Count 12.0 H Red Blood Count 3.51 L Hemoglobin 10.7 L Hematocrit 31.6 L Mean Corpuscular Volume 90.0 Mean Corpuscular Hemoglobin 30.5 Mean Corpuscular Hemoglobin Concent 33.9 Red Cell Distribution Width 15.7 H Platelet Count 251 Mean Platelet Volume 9.7 Neutrophils % 69.9 Lymphocytes % 17.9 Monocytes % 8.7 Eosinophils % 2.5 Basophils % 0.1 Nucleated Red Blood Cells % 0.0 Neutrophils # 8.4 H Lymphocytes # 2.2 Monocytes # 1.0 H Eosinophils # 0.3 Basophils # 0.0 Nucleated Red Blood Cells # 0.0 Sodium Level 133 L Potassium Level 4.0 Chloride Level 103 Carbon Dioxide Level 24 Anion Gap 10 Blood Urea Nitrogen 22 H Creatinine 1.17 Glucose Level 101 Calcium Level 8.0 L Total Bilirubin 1.2 Direct Bilirubin 0.00 Indirect Bilirubin 1.2 H Aspartate Amino Transf (AST/SGOT) 36 Alanine Aminotransferase (ALT/SGPT) 40 Alkaline Phosphatase 83 Total Protein 5.6 L Albumin 2.6 L Globulin 3.00 Albumin/Globulin Ratio 0.86 Medications Medications Current Medications Sodium Chloride (NS) 1,000 ml @ 75 mls/hr [id number] IV Last administered on t 05:46; Admin Dose 75 MLS/HR; Start 08/22/17 at 06:34 Ondansetron HCl (Zofran Inj) 4 mg Q6H PRN IV NAUSEA AND/OR VOMITING; Start at 07:00 Acetaminophen (Tylenol Tab) 650 mg Q6H PRN PO PAIN LEVEL 1-3 OR FEVER; Start 08/22/17 at 07:00 Morphine Sulfate (morphine) 2 mg Q4H PRN IV SEVERE PAIN LEVEL 7-10 Last administered on 08/25/17 14:08; Admin Dose 2 MG; Start 08/22/17 at 07:00 Docusate Sodium (Colace) 100 mg Q12H PO Last administered on 08/25/17 06:04; Admin Dose 100 MG; Start 08/22/17 at 07:00 Bisacodyl (Dulcolax) 5 mg DAILY PO Last administered on 08/25/17 08:46; Admin Dose 5 MG; Start 08/22/17 at 09:00 Allopurinol (Zyloprim) 100 mg BID PO Last administered on 08/25/17 08:46; Admin Dose 100 MG; Start 08/22/17 at 09:00 Aspirin (Halfprin) 81 mg DAILY PO Last administered on 08/25/17 08:46; Admin Dose 81 MG; Start 08/22/17 at 09:00 Atorvastatin Calcium (Lipitor) 80 mg DAILY@21 PO Last administered on 20:48; Admin Dose 80 MG; Start 08/22/17 at 21:00 Carvedilol (Coreg) 3.125 mg BID PO Last administered on 08/25/17 08:46; Admin Dose 3.125 MG; Start 08/22/17 at 09:00 Clopidogrel Bisulfate (plaVIX) 75 mg DAILY PO Last administered on 08/25/17 08:46; Admin Dose 75 MG; Start 08/22/17 at 09:00 Metoclopramide HCl (Reglan) 10 mg Q6H PRN IV NAUSEA AND/OR VOMITING; Start at 09:30 Acetaminophen/ Hydrocodone Bitart ([place] (5/325)) 1 tab Q6H PRN PO MODERATE PAIN LEVEL 4-6; Start 08/22/17 at 09:30 Enoxaparin Sodium (Lovenox) 40 mg DAILY SC Last administered on 08/25/17 08: 47; Admin Dose 40 MG; Start 08/22/17 at 10:00 NOHEMI SIEGEL Aug 25, 2017 15:19
[2017-08-25 17:03] VITALS: BP 122/67; RESP 20
--- NOTE | 2017-08-25 19:06 | PN ---
Date/Time of Note Date/Time of Note DATE: 08/25/17 TIME: 19:05 Assessment/Plan VTE Prophylaxis VTE Prophylaxis Intervention: LMWH Lines/Catheters IV Catheter Type (from Nrsg): Peripheral IV Urinary Cath still in place: No Assessment/Plan Chief Complaint/Hosp Course S 08/24: Probable pain all night. Appears comfortable at present. No fever dyspnea. Positive flatus 08/24: no events 08/25: better O: Vss PE No pallor icterus Reg Clear Bs+ nontender nondistended no RRG No edema Assessment and plan 1. Abdominal pain. Pancreatitis? Stable/ improved; continue supportive care.DC home 08/26 2. Abnormal troponin. Potentially demand ischemia Chr CAD. Potentially downtrending from recent OR. 3. Old OR status. Chronic coronary disease. Stable continue risk factor modification 4. Postop day _ lap ashleigh 5. Chronic gout 6. Chronic hypertension. EF of 50. 7. H/o ESBL E. coli. 8. Constipation 9. Dilated right hepatic duct 10. T12/ L1 fracture. MRI. NS eval/ brace/ PT Problems: Exam/Review of Systems Vital Signs Vitals Vital Signs Date Time Temp Pulse Resp B/P Pulse Ox O2 Delivery O2 Flow Rate FiO2 08/25/17 17:03 99.0 87 20 122/67 99 08/22/17 07:30 Room Air Intake and Output 08/24/17 08/24/17 08/25/17 15:00 23:00 07:00 Intake Total 108 ml 468 ml 1290 ml Output Total 600 ml 350 ml Balance 108 ml -132 ml 940 ml Results Result Diagram: 08/25/17 0538 08/25/17 0538 Results 24 hrs Laboratory Tests Test 08/25/17 05:38 White Blood Count 12.0 H Red Blood Count 3.51 L Hemoglobin 10.7 L Hematocrit 31.6 L Mean Corpuscular Volume 90.0 Mean Corpuscular Hemoglobin 30.5 Mean Corpuscular Hemoglobin Concent 33.9 Red Cell Distribution Width 15.7 H Platelet Count 251 Mean Platelet Volume 9.7 Neutrophils % 69.9 Lymphocytes % 17.9 Monocytes % 8.7 Eosinophils % 2.5 Basophils % 0.1 Nucleated Red Blood Cells % 0.0 Neutrophils # 8.4 H Lymphocytes # 2.2 Monocytes # 1.0 H Eosinophils # 0.3 Basophils # 0.0 Nucleated Red Blood Cells # 0.0 Sodium Level 133 L Potassium Level 4.0 Chloride Level 103 Carbon Dioxide Level 24 Anion Gap 10 Blood Urea Nitrogen 22 H Creatinine 1.17 Glucose Level 101 Calcium Level 8.0 L Total Bilirubin 1.2 Direct Bilirubin 0.00 Indirect Bilirubin 1.2 H Aspartate Amino Transf (AST/SGOT) 36 Alanine Aminotransferase (ALT/SGPT) 40 Alkaline Phosphatase 83 Total Protein 5.6 L Albumin 2.6 L Globulin 3.00 Albumin/Globulin Ratio 0.86 Medications Medications Current Medications Sodium Chloride (NS) 1,000 ml @ 75 mls/hr [id number] IV Last administered on 05:46; Admin Dose 75 MLS/HR; Start 08/22/17 at 06:34 Ondansetron HCl (Zofran Inj) 4 mg Q6H PRN IV NAUSEA AND/OR VOMITING; Start at 07:00 Acetaminophen (Tylenol Tab) 650 mg Q6H PRN PO PAIN LEVEL 1-3 OR FEVER; Start 08/22/17 at 07:00 Morphine Sulfate (morphine) 2 mg Q4H PRN IV SEVERE PAIN LEVEL 7-10 Last administered on 08/25/17 14:08; Admin Dose 2 MG; Start 08/22/17 at 07:00 Docusate Sodium (Colace) 100 mg Q12H PO Last administered on 08/25/17 06:04; Admin Dose 100 MG; Start 08/22/17 at 07:00 Bisacodyl (Dulcolax) 5 mg DAILY PO Last administered on 08/25/17 08:46; Admin Dose 5 MG; Start 08/22/17 at 09:00 Allopurinol (Zyloprim) 100 mg BID PO Last administered on 08/25/17 08:46; Admin Dose 100 MG; Start 08/22/17 at 09:00 Aspirin (Halfprin) 81 mg DAILY PO Last administered on 08/25/17 08:46; Admin Dose 81 MG; Start 08/22/17 at 09:00 Atorvastatin Calcium (Lipitor) 80 mg DAILY@21 PO Last administered on 20:48; Admin Dose 80 MG; Start 08/22/17 at 21:00 Carvedilol (Coreg) 3.125 mg BID PO Last administered on 08/25/17 08:46; Admin Dose 3.125 MG; Start 08/22/17 at 09:00 Clopidogrel Bisulfate (plaVIX) 75 mg DAILY PO Last administered on 08/25/17 08:46; Admin Dose 75 MG; Start 08/22/17 at 09:00 Metoclopramide HCl (Reglan) 10 mg Q6H PRN IV NAUSEA AND/OR VOMITING; Start at 09:30 Acetaminophen/ Hydrocodone Bitart ([place] (5/325)) 1 tab Q6H PRN PO MODERATE PAIN LEVEL 4-6; Start 08/22/17 at 09:30 Enoxaparin Sodium (Lovenox) 40 mg DAILY SC Last administered on 08/25/17 08: 47; Admin Dose 40 MG; Start 08/22/17 at 10:00 Famotidine (Pepcid) 20 mg DAILY PO ; Start 08/26/17 at 09:00 REZA ARZATE MD Aug 25, 2017 19:06
--- NOTE | 2017-08-25 19:08 | PDOCDIS ---
Discharge Instructions DIAGNOSIS Discharge Diagnosis abd pain; CONDITION Patient Condition: Stable HOME CARE INSTRUCTIONS: Special Diet: bland diet ACTIVITY: Activity Restrictions: Slowly Increase Activity Do not Drive FOLLOW UP/APPOINTMENTS Follow-up Plan PCP 1wk Dr Burgess 2wks Dr Luciana Camp 2wks REZA ARZATE MD Aug 25, 2017 19:08
[2017-08-25] MEDS ORDERED: ACET325T40 PO (19:09)
[2017-08-25] MEDS ORDERED: DOCU-216 PO (19:09)
[2017-08-25 20:00] VITALS: BP 150/71; RESP 21
[2017-08-25] MEDS: ATORVASTATIN 80 MG TAB PO SCH (20:15)
[2017-08-26 02:00] VITALS: BP 133/67; RESP 19
[2017-08-26 07:45] VITALS: BP 135/71; RESP 18
[2017-08-26] MEDS: ASPIRIN (EC) 81 MG TAB PO SCH (08:46)
[2017-08-26] MEDS: DOCUSATE SODIUM 100 MG CAP PO SCH (08:46)
[2017-08-26] MEDS: CLOPIDOGREL 75 MG TAB PO SCH (08:46)
--- NOTE | 2017-08-26 08:46 | PN ---
Date/Time of Note Date/Time of Note DATE: 08/26/17 TIME: 08:40 Assessment/Plan VTE Prophylaxis VTE Prophylaxis Intervention: SCD's Lines/Catheters IV [facility] Peripheral IV Urinary Cath still in place: No Assessment/Plan Chief Complaint/Hosp Course Chief Complaint/Hosp Course Summary Assessment and Plan: Assessment: Abdominal pain. poss r/t resolving pancreatitis Hypomagnesemia/replaced Elevated troponin's/ trending down Hx of recent cholecystectomy Dilated right hepatic duct, not completely uncommon post cholecystectomy- will order further work-up CAD Chronic gout HTN T12/ L1 fracture. Plan: Continue H2 bryan Continue current regimen Patient seen in collaboration with Dr. Burgess Subjective: Course reviewed with nursing staff Patient interviewed and examined All labs, imaging and other results reviewed Patient doing well no c/o abdominal pain, nausea or vomiting, h/h stable, aminotransferases WNL, Ok to d/c from Gi point of view if remains stable. PHYSICAL EXAMINATION: GENERAL: Well developed, well nourished, alert & oriented to name and place, in no acute distress SKIN: No lesions, no stigmata chronic liver disease, no evidence of bleeding diathesis LYMPHATIC: No palpable lymphadenopathy. HEAD: Normocephalic, atraumatic, no tenderness. EYES: Pupils equal reactive to light and accommodation, full extraocular movements, sclera clear, non-icteric, no discharge. EARS/NOSE AND THROAT: Ears normal, nose normal, oropharynx normal, oral membranes well hydrated without lesions. NECK: Supple, no masses, thyroid normal, JVP within normal limits, carotids normal without bruits. CHEST: Inspection within normal limits. CARDIOVASCULAR: Heart: Regular rate and rhythm, no murmurs, gallops or rubs. GASTROINTESTINAL AND LIVER: Abdomen: Soft, non tenderness, non-distended, no hernias, no masses, no organomegaly, no ascites, no guarding, no rebound tenderness, normoactive bowel sounds. Rectal: Deferred. GENITOURINARY:Male genitalia within normal limits. EXTREMITIES: No cyanosis, clubbing or edema. Problems: Problems: Exam/Review of Systems Vital Signs Vitals Vital Signs Date Time Temp Pulse Resp B/P Pulse Ox O2 Delivery O2 Flow Rate FiO2 08/26/17 07:45 97.9 64 18 135/71 100 08/22/17 07:30 Room Air Intake and Output 08/25/17 08/25/17 08/26/17 14:59 22:59 06:59 Intake Total 1950 ml 700 ml Output Total 500 ml 500 ml Balance 1450 ml 200 ml Results Result Diagram: 08/25/17 0538 08/25/17 0538 Medications Medications Current Medications Ondansetron HCl (Zofran Inj) 4 mg Q6H PRN IV NAUSEA AND/OR VOMITING; Start at 07:00 Acetaminophen (Tylenol Tab) 650 mg Q6H PRN PO PAIN LEVEL 1-3 OR FEVER; Start 08/22/17 at 07:00 Morphine Sulfate (morphine) 2 mg Q4H PRN IV SEVERE PAIN LEVEL 7-10 Last administered on 08/25/17 14:08; Admin Dose 2 MG; Start 08/22/17 at 07:00 Docusate Sodium (Colace) 100 mg Q12H PO Last administered on 08/25/17 20:15; Admin Dose 100 MG; Start 08/22/17 at 07:00 Bisacodyl (Dulcolax) 5 mg DAILY PO Last administered on 08/25/17 08:46; Admin Dose 5 MG; Start 08/22/17 at 09:00 Allopurinol (Zyloprim) 100 mg BID PO Last administered on 08/25/17 20:15; Admin Dose 100 MG; Start 08/22/17 at 09:00 Aspirin (Halfprin) 81 mg DAILY PO Last administered on 08/25/17 08:46; Admin Dose 81 MG; Start 08/22/17 at 09:00 Atorvastatin Calcium (Lipitor) 80 mg DAILY@21 PO Last administered on 20:15; Admin Dose 80 MG; Start 08/22/17 at 21:00 Carvedilol (Coreg) 3.125 mg BID PO Last administered on 08/25/17 20:15; Admin Dose 3.125 MG; Start 08/22/17 at 09:00 Clopidogrel Bisulfate (plaVIX) 75 mg DAILY PO Last administered on 08/25/17 08:46; Admin Dose 75 MG; Start 08/22/17 at 09:00 Metoclopramide HCl (Reglan) 10 mg Q6H PRN IV NAUSEA AND/OR VOMITING; Start at 09:30 Acetaminophen/ Hydrocodone Bitart ([place] (5/325)) 1 tab Q6H PRN PO MODERATE PAIN LEVEL 4-6; Start 08/22/17 at 09:30 Enoxaparin Sodium (Lovenox) 40 mg DAILY SC Last administered on 08/25/17 08: 47; Admin Dose 40 MG; Start 08/22/17 at 10:00 Famotidine (Pepcid) 20 mg DAILY PO ; Start 08/26/17 at 09:00 NOHEMI SIEGEL Aug 26, 2017 08:46
[2017-08-26] MEDS: BISACODYL (EC) 5 MG TAB PO SCH (08:48)
[2017-08-26] MEDS: ENOXAPARIN 40 MG/0.4 ML SYG SC SCH (08:48)
[2017-08-26] MEDS: ALLOPURINOL 100 MG TAB PO SCH (08:48)
[2017-08-26] MEDS ORDERED: FAMOTIDINE 20 MG TAB PO SCH (09:00)
--- NOTE | 2017-08-27 08:16 | CONS ---
Date/Time of Note Date/Time of Note DATE: 08/27/17 TIME: 08:16 JAIMIE COOK MD Aug 27, 2017 08:16
== END 2017-08-26 10:17 | disposition home or self-care (01) | DRG 438 ==
LOC: E/R 22:46 → PP2 08-22 05:45 → OBSVTOIN 08-22 05:45
PROVIDERS: ADMIT Family Medicine; ATTEND Family Medicine
DX: K85.90 Acute pancreatitis without necrosis or infection, unspecified (principal); K83.1 Obstruction of bile duct; E46 Unspecified protein-calorie malnutrition; E87.2 Acidosis; M48.54XA Collapsed vertebra, not elsewhere classified, thoracic region, initial encounter for fracture; E83.42 Hypomagnesemia; N28.1 Cyst of kidney, acquired; R10.9 Unspecified abdominal pain; E86.0 Dehydration; I25.2 Old myocardial infarction; I10 Essential (primary) hypertension; I25.10 Atherosclerotic heart disease of native coronary artery without angina pectoris; M1A.9XX0 Chronic gout, unspecified, without tophus (tophi); K59.00 Constipation, unspecified; N26.1 Atrophy of kidney (terminal); K42.9 Umbilical hernia without obstruction or gangrene; Z87.19 Personal history of other diseases of the digestive system
CPT/HCPCS: 36415; 71010; 72157; 72158; 74176; 74181; 80053; 81001; 82306; 82550; 82553; 83605; 83690; 83735; 84100; 84484; 85025; 85610; 87081; 93005; 96374; 96375; 96376; 97162; J1650; J1885; J2270; J2405; J3475; J7030

== ENCOUNTER 2017-08-29 21:52 | Inpatient (IN) | payer OTHER ==
[~2017-08-29] VITALS: Ht 160 cm; Wt 66.4 kg
[~2017-08-29 21:52] MED LIST changes: +ACET325T40 PO; +DOCU-216 PO; -FURO40TA4 PO; -SPIR25TA PO
--- NOTE | 2017-08-29 23:26 | ERD ---
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 Symptoms have been present since discharge from the hospital although she states they got worse over the last 2 days. He has not been eating or drinking much. He has had no fevers or chills, no vomiting or diarrhea. HPI limited although was supplemented by reviewing recent medical records. ROS All systems reviewed and are negative except as per history of present illness. Medications Home Meds Active Scripts Docusate Sodium (Dok) 100 Mg Capsule, 100 MG PO Q12H for 7 Days, #10 CAP OTC Prov:REZA AZRATE MD 08/25/17 Acetaminophen (MAPAP) 325 Mg Tablet, 650 MG PO Q6H Y for PAIN LEVEL 1-3 OR FEVER for 1 Day, #1 TAB OTC Prov:REZA ARZATE MD 08/25/17 [prednisone taper] No Conflict Check Prov:LORI MIRANDA MD 08/17/17 Aspirin* (Aspirin* EC) 81 Mg Tablet., 81 MG PO DAILY for 30 Days, #30 TAB Prov:LORI MIRANDA MD 08/17/17 Carvedilol* (Carvedilol*) 3.125 Mg Tablet, 3.125 MG PO BID for 30 Days, #60 TAB Prov:LORI MIRANDA MD 08/17/17 Atorvastatin* (Atorvastatin*) 80 Mg Tablet, 80 MG PO DAILY@21 for 30 Days, #30 TAB Prov:LORI MIRANDA MD 08/17/17 Clopidogrel Bisulfate (Clopidogrel) 75 Mg Tablet, 75 MG PO DAILY for 30 Days, # 30 TAB Prov:LORI MIRANDA MD 08/17/17 Pantoprazole* (Pantoprazole*) 40 Mg Tablet.dr, 40 MG PO BID for 60 Days, #120 Prov:LORI MIRANDA MD 03/21/17 Reported Medications Ferrous Sulfate* (Ferrous Sulfate*) 325 Mg Tabec, 325 MG PO DAILY, TAB 07/21/17 Allopurinol* (Zyloprim*) 100 Mg Tablet, 100 MG PO BID 02/17/13 Discontinued Scripts Furosemide* (Furosemide*) 40 Mg Tablet, 40 MG PO DAILY for 30 Days, #30 TAB Prov:LORI MIRANDA MD 08/17/17 Spironolactone* (Aldactone*) 25 Mg Tablet, 25 MG PO DAILY for 30 Days, #30 TAB Prov:LORI MIRANDA MD 08/17/17 Allergies Allergies: Coded Allergies: No Known Allergy (Unverified , 08/06/17) PMhx/Soc Dyslipidemia, hypertension, CAD status post PCI with stent placement, recent gallstone pancreatitis status post cholecystectomy, gout, gastritis History of Surgery: Yes (Cholecystectomy) Anesthesia Reaction: No Hx Neurological Disorder: No Hx Respiratory Disorders: No Hx Cardiac Disorders: No (Stent placement august 2017) Hx Psychiatric Problems: No Hx Miscellaneous Medical Probl: Yes (See EMR) Hx Alcohol Use: No Hx Substance Use: No Hx Tobacco Use: No FmHx Family History: No diabetes Physical Exam Vitals Vital Signs Date Time Temp Pulse Resp B/P Pulse Ox O2 Delivery O2 Flow Rate FiO2 08/30/17 01:00 75 22 142/79 99 Room Air 08/30/17 00:30 71 20 120/70 98 Room Air 08/30/17 00:15 78 17 100/55 98 Room Air 08/29/17 23:56 75 17 84/56 94 Room Air 08/29/17 21:56 98.2 92 20 119/66 98 Physical Exam GENERAL: Elderly, dehydrated man, appears weak, afebrile, initially hypotensive HEENT: Dry mucous membranes, pale conjunctiva, no cervical spine tenderness or step-off deformities, no goiter, no jaundice or icterus, extraocular movements intact without pain. NEURO: Alert and oriented 1, cranial nerves II through XII intact bilaterally, pupils equal round reactive to light, no focal deficits or facial asymmetry, sensation intact distally CARDIAC: Regular rate and rhythm, no murmurs rubs or gallops LUNGS: Clear bilaterally no wheezing crackles or stridor ABDOMEN: Soft nontender, no guarding, no rigidity, no rebound, no psoas sign no obturator sign. SKIN: Warm and dry to touch, no abrasions, contusions, or hematomas, no lacerations, no ecchymosis, no target lesions, and without ulcers EXTREMITIES: No clubbing cyanosis or edema, calves are bilaterally symmetrical, no Homans sign, no popliteal cord sign. Distal pulses equal and bilateral PSYCH: Unable to assess Result Diagram: 11/26/17 2322 11/26/17 2322 Results 24 hrs Laboratory Tests Test 08/29/17 23:22 08/29/17 23:56 White Blood Count 14.210^3/ul Red Blood Count 3.7810^6/ul Hemoglobin 11.5g/dl Hematocrit 34.1% Mean Corpuscular Volume 90.2fl Mean Corpuscular Hemoglobin 30.4pg Mean Corpuscular Hemoglobin Concent 33.7g/dl Red Cell Distribution Width 15.8% Platelet Count 55521^3/UL Mean Platelet Volume 10.4fl Neutrophils % 74.7% Lymphocytes % 15.4% Monocytes % 5.8% Eosinophils % 3.0% Basophils % 0.3% Nucleated Red Blood Cells % 0.0/100WBC Neutrophils # 10.610^3/ul Lymphocytes # 2.210^3/ul Monocytes # 0.810^3/ul Eosinophils # 0.410^3/ul Basophils # 0.010^3/ul Nucleated Red Blood Cells # 0.010^3/ul Prothrombin Time 12.4Sec Prothrombin Time Ratio 1.0 INR International Normalized Ratio 0.92 Activated Partial Thromboplast Time 28.0Sec Sodium Level 130mmol/L Potassium Level 4.9mmol/L Chloride Level 97mmol/L Carbon Dioxide Level 23mmol/L Anion Gap 15 Blood Urea Nitrogen 24mg/dl Creatinine 1.39mg/dl Glucose Level 126mg/dl Lactic Acid Level 1.5mmol/L Calcium Level 8.6mg/dl Total Bilirubin 0.8mg/dl Direct Bilirubin 0.00mg/dl Indirect Bilirubin 0.8mg/dl Aspartate Amino Transf (AST/SGOT) 52IU/L Alanine Aminotransferase (ALT/SGPT) 48IU/L Alkaline Phosphatase 113IU/L Troponin I 0.071ng/ml Total Protein 6.7g/dl Albumin 3.2g/dl Globulin 3.50g/dl Albumin/Globulin Ratio 0.91 Lipase 375U/L Urine Color YELLOW Urine Clarity CLEAR Urine pH 6.0 Urine Specific Peel 1.009 Urine Ketones NEGATIVEmg/dL Urine Nitrite NEGATIVEmg/dL Urine Bilirubin NEGATIVEmg/dL Urine Urobilinogen 1+mg/dL Urine Leukocyte Esterase NEGATIVELeu/ul Urine Microscopic RBC 0/HPF Urine Microscopic WBC 1/HPF Urine Bacteria FEW/HPF Urine Mucus FEW/HPF Urine Hemoglobin NEGATIVEmg/dL Urine Glucose NEGATIVEmg/dL Urine Total Protein 1+mg/dl Current Medications Medications (Trade) Dose Ordered Sig/Karthikeyan Route PRN Reason Start Time Stop Time Status Last Admin Dose Admin Sodium Chloride (NS) 2,000 ml BOLUS OVER 2 HOURS STAT IV* 08/29/17 23:29 08/29/17 23:31 DC 08/30/17 00:03 Procedures/MDM IV line was established patient was placed on conveyor monitor rhythm strip revealed a sinus rhythm at about 80 bpm with upright P and T waves. Patient was afebrile. Blood and urine cultures have been ordered results are pending I will follow-up. EKG performed, read by me revealed a normal sinus rhythm at 79 bpm, left axis deviation, narrow QRS complex, no concerning ST elevations or depressions noted. Recent MRI of the abdomen and pelvis with MRCP revealed: IMPRESSION: 1. Status post cholecystectomy. The common bile duct is normal size and within limits without gross abnormal filling defects. There is focal dilated cystic duct remnant. No other gross abnormality. No abnormal filling defects. No evidence of intrahepatic biliary dilatation. The pancreatic duct is within normal limits. 2. Hepatic cysts. 3. Bilateral renal cysts and cortical scarring. No obstruction or hydronephrosis. 4. Small hiatal hernia. No evidence of bowel obstruction. EKG #2 performed, read by me revealed a normal sinus rhythm at 72 bpm, left axis deviation, narrow QRS complex, no concerning ST elevations or depressions noted. I ordered 2 L normal saline intravenously for initial dehydration and hypotension. CT scan of the abdomen and pelvis was ordered results revealed:IMPRESSION: Status post cholecystectomy with mild dilatation of the bile duct, unchanged. Two small hypodense lesions within the liver, indeterminate, unchanged. Mild cardiomegaly and trace pericardial effusion. Mild bibasilar atelectasis. Small umbilical hernia containing fat. Vascular calcifications reflective of atherosclerosis. Moderate compression deformities of T12 and L1, stable. Otherwise no acute abnormality identified within the abdomen and pelvis. CBC reveals a leukocytosis of 14, electrolytes revealed dehydration with a BUN/ creatinine of 24/1.4, liver function tests are normal, troponin was negative, lactic acid was low at 1.5, urinalysis was negative for infection. Patient presents with weakness, dehydration, initial hypotension, and recent anorexia. He has no signs of infection and I will defer antibiotics to the admitting team patient will be admitted for continued medical management and hydration. Departure Diagnosis: Primary Impression: Hypotension Hypotension type: unspecified hypotension type Qualified Code: I95.9 - Hypotension, unspecified hypotension type Additional Impressions: Acute weakness Failure to thrive Failure to thrive age range: in adult Qualified Code: R62.7 - Failure to thrive in adult Dehydration Condition: PHILIP Dang MD Aug 29, 2017 23:26
[2017-08-29] MEDS ORDERED: SODIUM CHLORIDE 0.9% 1L BAG IV* STA (23:29)
[2017-08-29 23:57] LABS: BASOPHILS % 0.3 % (0.0-2.0); EOSINOPHILS # 0.4 10^3/ul (0.0-0.5); HEMATOCRIT 34.1 % (42.0-52.0); HEMOGLOBIN 11.5 g/dl (14.0-18.0); LYMPHOCYTES # 2.2 10^3/ul (0.8-2.9); LYMPHOCYTES % 15.4 % (15.0-51.0); MEAN CORPUSCULAR HEMOGLOBIN 30.4 pg (29.0-33.0); MEAN CORPUSCULAR HGB CONC 33.7 g/dl (32.0-37.0); MEAN CORPUSCULAR VOLUME 90.2 fl (82.0-101.0); MEAN PLATELET VOLUME 10.4 fl (7.4-10.4); MONOCYTE # 0.8 10^3/ul (0.3-0.9); MONOCYTES % 5.8 % (0.0-11.0); NEUTROPHIL # 10.6 10^3/ul (1.6-7.5); NEUTROPHILS % 74.7 % (39.0-77.0); PLATELET COUNT 242 10^3/UL (140-415); RED BLOOD COUNT 3.78 10^6/ul (4.70-6.10); RED CELL DISTRIBUTION WIDTH 15.8 % (11.5-14.5); WHITE BLOOD COUNT 14.2 10^3/ul (4.8-10.8)
[2017-08-30] VITALS (11 sets, daily range): BP systolic 126–140; BP diastolic 60–74; PULSE 77–90; RESP 18–19; Ht 160 cm; Wt 66.4 kg
--- NOTE | 2017-08-30 00:01 | RADRPT ---
PROCEDURE: XR Chest. CLINICAL INDICATION: Possible Sepsis TECHNIQUE: Single frontal view of the chest was obtained COMPARISON: Chest x-ray 08/22/2017 FINDINGS: The cardiomediastinal silhouette is within normal limits. There are atherosclerotic calcifications o f the aorta. Mild increased patchy ill-defined opacities at the left lung base may represent atelect asis and / or early consolidation. Mild right basilar atelectasis is noted. No pneumothorax or signi ficant pleural effusion is identified. There is no evidence of pulmonary vascular congestion. There are degenerative changes of the visualized spine and bilateral acromioclavicular joints. Right upper quadrant surgical clips are suggestive of prior cholecystectomy. IMPRESSION: 1. Mild increased patchy ill-defined opacities at the left lung base may represent atelectasis and / or early consolidation. 2. Thoracic aortic atherosclerotic disease. 3. Right upper quadrant surgical clips, suggestive of prior cholecystectomy. RPTAT: [facility] Physician Morris Date Time Electronically viewed and signed by Physician Morris on 08/30/2017 00:01 /
[2017-08-30 00:08] LABS: INR 0.92; PROTIME 12.4 Sec (12.2-14.2)
[2017-08-30 00:11] LABS: ALBUMIN 3.2 g/dl (3.3-4.9); ALBUMIN/GLOBULIN RATIO 0.91; BILIRUBIN,INDIRECT 0.8 mg/dl (0-1.1); BILIRUBIN,TOTAL 0.8 mg/dl (0.2-1.3); CALCIUM 8.6 mg/dl (8.4-10.2); CREATININE 1.39 mg/dl (0.61-1.24); POTASSIUM 4.9 mmol/L (3.5-5.1); TOTAL PROTEIN 6.7 g/dl (6.1-8.1)
[2017-08-30 00:23] LABS: TROPONIN-I 0.071 ng/ml (0.00-0.12)
[2017-08-30 00:32] LABS: ADD UMIC YES; UR ASCORBIC ACID NEGATIVE (NEGATIVE); UR BACTERIA FEW /HPF (NONE SEEN); UR BILIRUBIN (Dip) NEGATIVE (NEGATIVE); UR BLOOD (Dip) NEGATIVE (NEGATIVE); UR CLARITY CLEAR (CLEAR); UR COLOR YELLOW (YELLOW); UR GLUCOSE (Dip) NEGATIVE (NEGATIVE); UR KETONES (Dip) NEGATIVE (NEGATIVE); UR LEUKOCYTE ESTERASE (Dip) NEGATIVE Leu/ul (NEGATIVE); UR MUCUS FEW /HPF (NONE SEEN); UR NITRITE (Dip) NEGATIVE (NEGATIVE); UR RBC 0 /HPF (0-5); UR SPECIFIC GRAVITY (Dip) 1.009 (1.003-1.030); UR TOTAL PROTEIN (Dip) 1+ mg/dl (NEGATIVE); UR UROBILINOGEN (Dip) 1+ mg/dL (NEGATIVE)
--- NOTE | 2017-08-30 00:39 | RADRPT ---
PROCEDURE: CT Abdomen and pelvis without contrast. CLINICAL INDICATION: Abdominal pain. TECHNIQUE: CT scan of the abdomen and pelvis was performed on a multi-detector high-resolution CT scanner. Contiguous axial images were obtained from the lung bases to the ischial tuberosities wit hout intravenous contrast. Coronal and sagittal reformatted images were also obtained. Images were reviewed on the PACS workstation. DICOM images are available. One or more of the following dose reduction techniques were used: - Automated exposure control. - Adjustment of the mA and/or kV according to patient size. - Use of iterative reconstruction technique. Exam CTD/vol = 10.14 mGy. Total exam DLP = 647.23 mGy-cm. COMPARISON: 08/22/2017 FINDINGS: Evaluation of the lung bases demonstrates mild bibasilar atelectasis. The heart is mildly enlarged w ith a trace pericardial effusion. Abdomen: The liver is normal in size. There is a 12 mm hypodense lesion within the right lobe of th e liver. There is a 6 mm hypodense lesion within the left lobe of the liver. The patient status post cholecystectomy with mild dilatation of the bile duct. The spleen, pancreas and bilateral adrenal glands are within normal limits. Bilateral kidneys are normal in size with small left renal cysts. There is no radiopaque renal or ureteral calculus identified. There is no hydronephrosis or hydrou reter. There is no retroperitoneal adenopathy. The abdominal aorta is of normal caliber with scatt ered atherosclerotic calcifications. There is a small umbilical hernia containing fat. There is no bowel obstruction or free air. A nor mal appendix is identified. There is no diverticulosis or diverticulitis. There is no ascites. Pelvis: The bladder contains a Holland catheter. The prostate and seminal vesicles are within normal limits. There is no significant pelvic adenopathy or free fluid. Evaluation of the osseous structures demonstrates no suspicious lytic or blastic lesion. There are m oderate compression deformities of the T12 and L1 vertebral bodies with up to 50% loss in vertebral body heights. IMPRESSION: Status post cholecystectomy with mild dilatation of the bile duct, unchanged. Two small hypodense lesions within the liver, indeterminate, unchanged. Mild cardiomegaly and trace pericardial effusion. Mild bibasilar atelectasis. Small umbilical hernia containing fat. Vascular calcifications reflective of atherosclerosis. Moderate compression deformities of T12 and L1, stable. Otherwise no acute abnormality identified within the abdomen and pelvis. .Pedro Luis Mehta MD, MD Date Time Electronically viewed and signed by .Pedro Luis Mehta MD, MD on 08/30/2017 00:39 .T/
[2017-08-30] MEDS ORDERED: DEXTROSE 5%-0.45% NACL 1,000 ML IV SCH (03:30)
[2017-08-30] MEDS ORDERED: morphine 2 MG INJ IV PRN ×2 (03:30→07:30)
[2017-08-30] MEDS ORDERED: PENDING SANTYL ORDER FOR WOUND CARE XX PRN (06:00)
--- NOTE | 2017-08-30 07:20 | HP ---
Date/Time of Note Date/Time of Note DATE: 08/30/17 TIME: 07:07 Assessment/Plan VTE Prophylaxis VTE Prophylaxis Intervention: heparin Lines/Catheters IV Catheter Type (from [facility]): Peripheral IV Assessment/Plan Assessment/Plan 1. Hypotension, likely secondary to dehydration -Presented with a systolic blood pressure in the 80s but responded to fluid challenge -Continue IV fluid 2. Generalized weakness: Multifactorial etiology: Hypotension, generalized deconditioning, cardiac -Continue IV fluid -IV antibiotic for possible early pneumonia -Physical therapy evaluation 3. Probable left lung pneumonia: With possible sepsis as evidenced by leukocytosis and initial tachycardia -IV antibiotic -Respiratory culture if possible -UA negative for UTI 4. CAD, status post PCI with stents to RCA, earlier this month -Continue cardiac medications 5. CKD, stable -Consider nephrology consult 6. Pancreatitis -Lipase slightly elevated at 375. Patient with a history of cholecystectomy for gallstone pancreatitis -CT abdomen/pelvis with mild dilatation of bile ducts, which is unchanged -Keep n.p.o. for now -will consider additional imaging and consult as needed HPI/ROS Admit Date/Time Admit Date/Time Aug 30, 2017 at 01:20 Hx of Present Illness 87-year-old with a history of CAD, status post PCI with stent to RCA, gallstone pancreatitis complicated by postop abscess status post drainage, ESBL E. coli bacteremia presents with generalized weakness. Patient was admitted here 3 weeks ago after she initially presented with weakness/fatigue and abnormal EKG. She was found to have a STEMI and underwent emergent cardiac cath with PCI with stent to RCA for 100% occlusion. During last hospitalization, patient had a stridor thought to be from [place]. He was evaluated by ENT was not was treated with steroid. When patient presented to the ER at this time, she was noted to be hypotensive with a systolic blood pressure in the 80s. BP responded to fluid challenge. Labs shows a sodium of 130, creatinine 1.39, lipase 375, WBC 14,000. Chest x- ray shows left lung atelectasis versus early consolidation. Urinalysis was negative for UTI. PMH/Family/Social Past Surgical History Past Surgical Hx: cholecystectomy Social History Smoking Status: Never smoker Exam/Review of Systems Vital Signs Vitals Vital Signs Date Time Temp Pulse Resp B/P Pulse Ox O2 Delivery O2 Flow Rate FiO2 08/30/17 04:42 82 08/30/17 04:07 98.7 19 134/73 96 08/30/17 02:00 Room Air Intake and Output 08/29/17 08/29/17 08/30/17 15:00 23:00 07:00 Intake Total 220 ml Balance 220 ml Exam Constitutional: other (Appears sleepy and weak) Head: atraumatic, normocephalic Eyes: PERRL Respiratory: diminished breath sounds Cardiovascular: regular rate and rhythm Gastrointestinal: soft, tender Extremities: normal pulses Labs Result Diagram: 08/29/17232108/29/17 232 Medications Medications Current Medications Dextrose/Sodium Chloride (D5-1/2ns) 1,000 ml @ 75 mls/hr [id number] IV Last administered on 08/30/17t 03:10; Admin Dose 75 MLS/HR; Start 08/30/17 at 03:30 Morphine Sulfate (morphine) 2 mg Q4H PRN IV pain; Start 08/30/17 at 03:30 [facility]iscellaneous [facility] This patient swan... PRN PRN XX WOUND CARE; Start 08/30/17 at 06:00 SCOTT TONEY MD Aug 30, 2017 07:19
[2017-08-30] MEDS ORDERED: NITROGLYCERIN (SL) 0.4 MG TAB SL PRN (07:30)
[2017-08-30] MEDS ORDERED: DEXTROSE 5%-0.9% NACL 1,000 ML IV SCH (07:30)
[2017-08-30] MEDS: DOCUSATE SODIUM 100 MG CAP PO SCH ×2 (07:30→19:30)
[2017-08-30] MEDS ORDERED: LEVOFLOXACIN 500MG/D5W (PMX) 100 ML IVPB SCH (07:30)
[2017-08-30] MEDS ORDERED: NACL 0.9% 3 ML SYG IV SCH (07:30)
[2017-08-30] MEDS ORDERED: LORAZEPAM 0.5 MG TAB PO PRN (07:30)
[2017-08-30] MEDS ORDERED: PANTOPRAZOLE (EC) 40 MG TAB PO SCH (09:00)
[2017-08-30] MEDS ORDERED: HEPARIN 5,000 UNIT/0.5 ML VIAL SC SCH (09:00)
[2017-08-30 09:23] LABS: CK-MB 6.01 ng/ml (0.0-2.4); TROPONIN-I 0.476 ng/ml (0.00-0.12)
[2017-08-30] MEDS: CLOPIDOGREL 75 MG TAB PO SCH (10:14)
[2017-08-30] MEDS: FERROUS SULFATE (EC) 325 MG TAB PO SCH (10:14)
[2017-08-30] MEDS: ASPIRIN (EC) 81 MG TAB PO SCH (10:15)
[2017-08-30] MEDS: ALLOPURINOL 100 MG TAB PO SCH ×2 (10:15→21:41)
[2017-08-30 11:19] LABS: THYROID STIMULATING HORMONE 4.74 MIU/L (0.465-4.680)
[2017-08-30 16:01] LABS: CK-MB 7.25 ng/ml (0.0-2.4); TROPONIN-I 1.32 ng/ml (0.00-0.12)
--- NOTE | 2017-08-30 19:29 | PN ---
Date/Time of Note Date/Time of Note DATE: 08/30/17 TIME: 19:18 Assessment/Plan VTE Prophylaxis VTE Prophylaxis Intervention: SCD's Lines/Catheters IV Catheter Type (from Nrsg): Peripheral IV Assessment/Plan Assessment/Plan 87 yo M with multiple hospitalizations in recent months, initially had gallstone pancreatitis, then had STEMI now here with generalized weakness x 4 days. Labs notable for uptrending troponin, EKG without evidence of ST segment elevation. Pt does not meet SIRS criteria. Despite leukocytosis and 1 episode of hypotension, no tachycardia or hypoxia. #elevated trop: clinical significance unclear empiric cardiac dosing LMWH TTE will consult cardiology in AM continue home cardiac meds including asa, statin, BP control #leukocytosis: etio unclear, repeat in AM no pna on imaging, no dysuria so no clinical evidence of UTI and this time. will repeat UA #low albumin: repeat UA to eval for proteinuria RD consult appears to be about wound care though pt without new wounds #?hypothyroid: check t4 #weakness: PT eval #compression deformity: vit D low 6 days ago. unclear why ergo not started appears pt seen by neurosurg during recent admit but note not yet available #hyponatremia: restrict FW. checking TFTs as above. AM cortisol ok check serum and urine osms Subjective 24 Hr Interval Summary Free Text/Dictation Talked to family member, pt has been weak for the past few days. No chest pain or SOB. +poor appetite. No dysuria, no coughing Exam/Review of Systems Vital Signs Vitals Vital Signs Date Time Temp Pulse Resp B/P Pulse Ox O2 Delivery O2 Flow Rate FiO2 08/30/17 16:30 78 08/30/17 15:55 97.8 19 126/60 98 08/30/17 02:00 Room Air Intake and Output 08/29/17 08/29/17 08/30/17 15:00 23:00 07:00 Intake Total 220 ml Balance 220 ml Exam frail, laying in bed no mrg lungs clear abd soft no rashes moves exts freely labs noted: WBCs elevated but no L shift, TSH slightly high, albumin low EKG personally obtained and reviewed, no gross ST segment elevation, TWave flattening noted in lead II Results Result Diagram: 08/29/17 2322 08/29/17 2322 Results 24 hrs Laboratory Tests Test 08/29/17 23:22 08/29/17 23:56 08/30/17 07:34 08/30/17 14:32 White Blood Count 14.2 H Red Blood Count 3.78 L Hemoglobin 11.5 L Hematocrit 34.1 L Mean Corpuscular Volume 90.2 Mean Corpuscular Hemoglobin 30.4 Mean Corpuscular Hemoglobin Concent 33.7 Red Cell Distribution Width 15.8 H Platelet Count 242 Mean Platelet Volume 10.4 Neutrophils % 74.7 Lymphocytes % 15.4 Monocytes % 5.8 Eosinophils % 3.0 Basophils % 0.3 Nucleated Red Blood Cells % 0.0 Neutrophils # 10.6 H Lymphocytes # 2.2 Monocytes # 0.8 Eosinophils # 0.4 Basophils # 0.0 Nucleated Red Blood Cells # 0.0 Prothrombin Time 12.4 Prothrombin Time Ratio 1.0 INR International Normalized Ratio 0.92 Activated Partial Thromboplast Time 28.0 Sodium Level 130 L Potassium Level 4.9 Chloride Level 97 Carbon Dioxide Level 23 Anion Gap 15 Blood Urea Nitrogen 24 H Creatinine 1.39 H Glucose Level 126 Lactic Acid Level 1.5 Calcium Level 8.6 Total Bilirubin 0.8 Direct Bilirubin 0.00 Indirect Bilirubin 0.8 Aspartate Amino Transf (AST/SGOT) 52 H Alanine Aminotransferase (ALT/SGPT) 48 Alkaline Phosphatase 113 Troponin I 0.071 0.476 *H 1.320 *H Total Protein 6.7 Albumin 3.2 L Globulin 3.50 H Albumin/Globulin Ratio 0.91 Lipase 375 H Urine Color YELLOW Urine Clarity CLEAR Urine pH 6.0 Urine Specific [place] 1.009 Urine Ketones NEGATIVE Urine Nitrite NEGATIVE Urine Bilirubin NEGATIVE Urine Urobilinogen 1+ H Urine Leukocyte Esterase NEGATIVE Urine Microscopic RBC 0 Urine Microscopic WBC 1 Urine Bacteria FEW A Urine Mucus FEW A Urine Hemoglobin NEGATIVE Urine Glucose NEGATIVE Urine Total Protein 1+ H Creatine Kinase 356 H 420 H Creatine Kinase Index 1.7 1.7 Creatinine Kinase MB (Mass) 6.01 H 7.25 H Thyroid Stimulating Hormone (TSH) 4.740 H Random Cortisol 9.0 Medications Medications Current Medications Miscellaneous Information (Pending Santyl Order For Wound Care) This patient swan... PRN PRN XX WOUND CARE; Start 08/30/17 at 06:00 Lorazepam (Ativan) 0.5 mg Q8H PRN PO ANXIETY; Start 08/30/17 at 07:30 Nitroglycerin (Nitroglycerin (Sl Tab) 0.4 Mg) 1 tab Q5M PRN SL CHEST PAIN; Start 08/30/17 at 07:30 Acetaminophen (Tylenol Tab) 650 mg Q6H PRN PO PAIN LEVEL 1-3 OR FEVER; Start 08/30/17 at 07:30 Morphine Sulfate (morphine) 2 mg Q4H PRN IV PAIN LEVEL 7-10; Start 08/30/17 at 07:30 Heparin Sodium (Porcine) (Heparin (5000 Units/0.5 ml)) 5,000 unit Q12 SC Last administered on 08/30/17 10:25; Admin Dose 5,000 UNIT; Start 08/30/17 at 09: 00 Allopurinol (Zyloprim) 100 mg BID PO Last administered on 08/30/17 10:15; Admin Dose 100 MG; Start 08/30/17 at 09:00 Aspirin (Halfprin) 81 mg DAILY PO Last administered on 08/30/17 10:15; Admin Dose 81 MG; Start 08/30/17 at 09:00 Atorvastatin Calcium (Lipitor) 80 mg DAILY@21 PO ; Start 08/30/17 at 21:00 Carvedilol (Coreg) 3.125 mg BID PO Last administered on 08/30/17 10:15; Admin Dose 3.125 MG; Start 08/30/17 at 09:00 Clopidogrel Bisulfate (plaVIX) 75 mg DAILY PO Last administered on 08/30/17 10:14; Admin Dose 75 MG; Start 08/30/17 at 09:00 Docusate Sodium (Colace) 100 mg Q12H PO ; Start 08/30/17 at 07:30 Ferrous Sulfate (Ferrous Sulfate (Ec)) 325 mg DAILY PO Last administered on 10:14; Admin Dose 325 MG; Start 08/30/17 at 09:00 Pantoprazole (Protonix Tab) 40 mg BID PO Last administered on 08/30/17 10:11 ; Admin Dose 40 MG; Start 08/30/17 at 09:00 LORI MIRANDA MD Aug 30, 2017 19:29
[2017-08-30] MEDS ORDERED: ENOXAPARIN 100 MG/ML SYG SC SCH (21:00)
[2017-08-30] MEDS: ATORVASTATIN 80 MG TAB PO SCH (21:40)
[2017-08-30] MEDS: RANITIDINE 150 MG TAB PO SCH (21:41)
--- NOTE | 2017-08-30 21:50 | RADRPT ---
PROCEDURE: CT Brain without contrast. CLINICAL INDICATION: Failure to thrive, rule out intracranial hemorrhage TECHNIQUE: A CT of the brain was performed on a GE [employer] 64-slice CT scanner utilizing axial imaging from the skull base through the vertex without IV contrast. Multiplanar reformatted images were made. Images were reviewed on a PACS workstation. The CTDIvol is 43.9 mGy and the DLP is 720 mGycm. DICOM images are available. One or more of the following dose reduction techniques were utilized: 1.) Automated exposure control 2.) Adjustment of the mA +/- kV according to patient's size 3.) Use of iterative reconstruction technique. COMPARISON: March 26, 2017 FINDINGS: There is no intracranial hemorrhage, mass effect, or midline shift. No extra-axial fluid collection is seen. There is stable cerebral volume loss with prominence of the cerebral sulci and lateral bob tricles. Periventricular white matter hypodensities are stable and nonspecific but likely reflect c hronic microvascular ischemic change. The visualized paranasal sinuses and osseous structures are gr ossly unremarkable. IMPRESSION: 1. No evidence of acute intracranial pathology. No significant interval change compared to the prio r CT examination. 2. Diffuse cerebral volume loss, stable. 3. Periventricular white matter hypodensities are nonspecific but likely reflect chronic microvascu lar ischemic change. Physician Lico Date Time Electronically viewed and signed by Physician Lico on 08/30/2017 21:50 ML/
[2017-08-31] VITALS (12 sets, daily range): BP systolic 120–150; BP diastolic 59–72; PULSE 73–87; RESP 18–20
[2017-08-31] MEDS: ENOXAPARIN 80 MG/0.8 ML SYG SC SCH ×3 (05:54→20:44)
[2017-08-31 07:17] LABS: BASOPHILS % 0.3 % (0.0-2.0); EOSINOPHILS # 0.4 10^3/ul (0.0-0.5); EOSINOPHILS % 3.8 % (0.0-7.0); HEMATOCRIT 29.4 % (42.0-52.0); LYMPHOCYTES # 1.7 10^3/ul (0.8-2.9); LYMPHOCYTES % 18.6 % (15.0-51.0); MEAN CORPUSCULAR HEMOGLOBIN 30.6 pg (29.0-33.0); MEAN CORPUSCULAR VOLUME 89.9 fl (82.0-101.0); MEAN PLATELET VOLUME 10.7 fl (7.4-10.4); MONOCYTE # 0.6 10^3/ul (0.3-0.9); MONOCYTES % 6.9 % (0.0-11.0); NEUTROPHIL # 6.5 10^3/ul (1.6-7.5); NEUTROPHILS % 69.9 % (39.0-77.0); PLATELET COUNT 235 10^3/UL (140-415); RED BLOOD COUNT 3.27 10^6/ul (4.70-6.10); RED CELL DISTRIBUTION WIDTH 15.5 % (11.5-14.5); WHITE BLOOD COUNT 9.3 10^3/ul (4.8-10.8)
[2017-08-31] MEDS: DOCUSATE SODIUM 100 MG CAP PO SCH ×2 (07:30→20:42)
[2017-08-31] MEDS ORDERED: LEVOFLOXACIN 250MG/D5W (PMX) 50 ML IVPB SCH (08:00)
[2017-08-31 08:27] LABS: ALBUMIN 2.5 g/dl (3.3-4.9); BILIRUBIN,INDIRECT 1.1 mg/dl (0-1.1); BILIRUBIN,TOTAL 1.1 mg/dl (0.2-1.3); CREATININE 1.23 mg/dl (0.61-1.24); POTASSIUM 4.3 mmol/L (3.5-5.1)
[2017-08-31 08:45] LABS: MAGNESIUM 0.9 mg/dl (1.7-2.5)
[2017-08-31] MEDS: CLOPIDOGREL 75 MG TAB PO SCH (09:35)
[2017-08-31] MEDS: ERGOCALCIFEROL 50,000 UNIT CAP PO SCH (09:35)
[2017-08-31] MEDS: FERROUS SULFATE (EC) 325 MG TAB PO SCH (09:37)
[2017-08-31] MEDS: ALLOPURINOL 100 MG TAB PO SCH ×2 (09:37→20:43)
[2017-08-31] MEDS: RANITIDINE 150 MG TAB PO SCH ×2 (09:37→20:42)
[2017-08-31] MEDS: ASPIRIN (EC) 81 MG TAB PO SCH (09:37)
[2017-08-31] MEDS ORDERED: MAGNESIUM SULFATE 4 GM/100 ML 100 ML IVPB ONE (10:30)
[2017-08-31 10:59] LABS: ADD UMIC NO; UR ASCORBIC ACID NEGATIVE (NEGATIVE); UR BILIRUBIN (Dip) NEGATIVE (NEGATIVE); UR BLOOD (Dip) NEGATIVE (NEGATIVE); UR CLARITY CLEAR (CLEAR); UR COLOR YELLOW (YELLOW); UR GLUCOSE (Dip) NEGATIVE (NEGATIVE); UR KETONES (Dip) NEGATIVE (NEGATIVE); UR LEUKOCYTE ESTERASE (Dip) NEGATIVE Leu/ul (NEGATIVE); UR NITRITE (Dip) NEGATIVE (NEGATIVE); UR SPECIFIC GRAVITY (Dip) 1.006 (1.003-1.030); UR TOTAL PROTEIN (Dip) NEGATIVE (NEGATIVE); UR UROBILINOGEN (Dip) NEGATIVE (NEGATIVE)
--- NOTE | 2017-08-31 14:02 | RADRPT ---
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 Physician: LORI MIRANDA Quality: Adequate Procedures: Transthoracic echocardiogram with complete 2D, M-Mode, and doppler examination. Indications: Elevated Troponins. 2D/M Mode Doppler Measurement Value Normal Ranges Measurement Value Normal Ranges LVIDd 2D 4.4 3.5 - 5.6 cm AV Peak Shayne 1.4 m/sec LVIDs 2D 3.1 2.1 - 4.1 cm AV Peak PG 8.0 mmHg LVPWd 2D 1.5 0.6 - 1.1 cm LVOT Peak Shayne 0.9 m/sec IVSd 2D 1.5 0.6 - 1.1 cm LVOT Peak PG 3.0 mmHg AoR Diam 2D 3.1 2.0 - 3.7 cm TR Peak Shayne 2.3 m/sec EDV 2D 86.7 cm3 TR Peak PG 21.0 mmHg ESV 2D 29.2 cm3 RVSP 31.0 mmHg LA Dimen 2D 4.3 2.3 - 4.0 cm Findings Left Ventricle: Normal left ventricular systolic function. Normal left ventricular cavity size. Moderate concentric left ventricular hypertrophy. Ejection fraction is visually estimated at 55 %. Tissue Doppler/Mitral Doppler indices are consistent with impaired relaxation (Stage I diastolic dysfunction). Right Ventricle: Normal right ventricular size. Normal right ventricular systolic function. Left Atrium: There is mild enlargement of left atrium. Right Atrium: The right atrium is normal in size. Mitral Valve: Mild mitral leaflet calcification. Mild mitral annular calcification. Trace mitral regurgitation. Aortic Valve: No aortic stenosis. Aortic cusps appear mildly calcified. Mild aortic valve regurgitation. Tricuspid Valve: Normal appearance of the tricuspid valve. Estimated peak PA systolic pressure 31 mmHg. There is mild tricuspid regurgitation. Pulmonic Valve: Pulmonic valve not well visualized. There is trace pulmonic regurgitation. Pericardium: Normal pericardium with no significant pericardial effusion. Aorta: Normal aortic root. IVC: Normal size and normal respiratory collapse consistent with normal right atrial pressure. Conclusions 1.Normal left ventricular systolic function. Normal left ventricular cavity size. Moderate concentric left ventricular hypertrophy. Ejection fraction is visually estimated at 55 %. Tissue Doppler/Mitral Doppler indices are consistent with impaired relaxation (Stage I diastolic dysfunction). 2.There is mild enlargement of left atrium. 3.Mild mitral leaflet calcification. Mild mitral annular calcification. Trace mitral regurgitation. 4.No aortic stenosis. Aortic cusps appear mildly calcified. Mild aortic valve regurgitation. 5.Normal appearance of the tricuspid valve. Estimated peak PA systolic pressure 31 mmHg. There is mild tricuspid regurgitation. Electronically Signed By: Puma Vitale 31-Aug-2017 14:01: Patient Name: WILLIAM BRITTON Study Date: 31-Aug-2017 [id number]
--- NOTE | 2017-08-31 14:26 | RADRPT ---
Vent Rate: 87 bpm RR Interval: 0 msec NH Interval: 154 msec QRS Duration: 88 msec QT Interval: 378 msec QTC Interval: 454 msec P-R-T [place]: 25 - -32 - -33 degrees Normal sinus rhythm Left axis deviation Possible Inferior infarct , age undetermined Abnormal ECG Electronically Signed By: Moody Morales [id number]
--- NOTE | 2017-08-31 14:26 | RADRPT ---
Vent Rate: 86 bpm RR Interval: 0 msec RI Interval: 184 msec QRS Duration: 86 msec QT Interval: 380 msec QTC Interval: 454 msec P-R-T [place]: 24 - -32 - -17 degrees Normal sinus rhythm Left axis deviation Inferior infarct , age undetermined Abnormal ECG Electronically Signed By: Moody Morales [id number]
--- NOTE | 2017-08-31 14:42 | PN ---
Date/Time of Note Date/Time of Note DATE: 08/31/17 TIME: 14:42 Assessment/Plan VTE Prophylaxis VTE Prophylaxis Intervention: SCD's Lines/Catheters IV Catheter Type (from Nrs): Peripheral IV Assessment/Plan Assessment/Plan 87 yo M with multiple hospitalizations in recent months, initially had gallstone pancreatitis, then had STEMI now here with generalized weakness x 4 days. 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 #?hypothyroid: check t4 #weakness: PT eval complete, await OT eval #compression deformity: vit D low 6 days ago. 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 Feels unchanged overall daughter states pt has been having a gout flare in both feet since last night Exam/Review of Systems Vital Signs Vitals Vital Signs Date Time Temp Pulse Resp B/P Pulse Ox O2 Delivery O2 Flow Rate FiO2 08/31/17 12:05 82 08/31/17 11:57 98.1 18 129/72 96 08/30/17 02:00 Room Air Intake and Output 08/30/17 08/30/17 08/31/17 14:59 22:59 06:59 Intake Total 400 ml Output Total 1600 ml Balance -1200 ml Exam nad, laying in bed no mrg lungs clear abd soft +multiple tophi in toes trop downtrending, TTE reviewed-->no focal wall abnormalities noted WBCs now normal repeat UA normal Results Result Diagram: 08/31/17 0608/31/17 06 Results 24 hrs Laboratory Tests Test 08/30/17 19:04 08/31/17 00:31 08/31/17 05:30 08/31/17 06:27 Troponin I 1.230 *H 0.966 *H 0.669 *H Thyroxine (T4) 8.6 Urine Color YELLOW Urine Clarity CLEAR Urine pH 8.0 Urine Specific [place] 1.006 Urine Ketones NEGATIVE Urine Nitrite NEGATIVE Urine Bilirubin NEGATIVE Urine Urobilinogen NEGATIVE Urine Leukocyte Esterase NEGATIVE Urine Hemoglobin NEGATIVE Urine Osmolality 270 Urine Random Sodium 87 Urine Glucose NEGATIVE Urine Total Protein NEGATIVE White Blood Count 9.3 # Red Blood Count 3.27 L Hemoglobin 10.0 L Hematocrit 29.4 L Mean Corpuscular Volume 89.9 Mean Corpuscular Hemoglobin 30.6 Mean Corpuscular Hemoglobin Concent 34.0 Red Cell Distribution Width 15.5 H Platelet Count 235 Mean Platelet Volume 10.7 H Neutrophils % 69.9 Lymphocytes % 18.6 Monocytes % 6.9 Eosinophils % 3.8 Basophils % 0.3 Nucleated Red Blood Cells % 0.0 Neutrophils # 6.5 Lymphocytes # 1.7 Monocytes # 0.6 Eosinophils # 0.4 Basophils # 0.0 Nucleated Red Blood Cells # 0.0 Sodium Level 131 L Potassium Level 4.3 Chloride Level 100 Carbon Dioxide Level 20 L Anion Gap 15 Blood Urea Nitrogen 19 Creatinine 1.23 Glucose Level 89 Calcium Level 8.0 L Magnesium Level 0.9 *L Total Bilirubin 1.1 Direct Bilirubin 0.00 Indirect Bilirubin 1.1 Aspartate Amino Transf (AST/SGOT) 38 Alanine Aminotransferase (ALT/SGPT) 44 Alkaline Phosphatase 84 Total Protein 5.0 #L Albumin 2.5 L Globulin 2.50 Albumin/Globulin Ratio 1.00 Test 08/31/17 13:39 Troponin I 0.522 *H Medications Medications Current Medications Miscellaneous Information (Pending Santyl Order For Wound Care) This patient swan... PRN PRN XX WOUND CARE; Start 08/30/17 at 06:00 Nitroglycerin (Nitroglycerin (Sl Tab) 0.4 Mg) 1 tab Q5M PRN SL CHEST PAIN; Start 08/30/17 at 07:30 Acetaminophen (Tylenol Tab) 650 mg Q6H PRN PO PAIN LEVEL 1-3 OR FEVER; Start 08/30/17 at 07:30 Morphine Sulfate (morphine) 2 mg Q4H PRN IV PAIN LEVEL 7-10; Start 08/30/17 at 07:30 Allopurinol (Zyloprim) 100 mg BID PO Last administered on 08/31/17 09:37; Admin Dose 100 MG; Start 08/30/17 at 09:00 Aspirin (Halfprin) 81 mg DAILY PO Last administered on 08/31/17 09:37; Admin Dose 81 MG; Start 08/30/17 at 09:00 Atorvastatin Calcium (Lipitor) 80 mg DAILY@21 PO Last administered on 21:40; Admin Dose 80 MG; Start 08/30/17 at 21:00 Carvedilol (Coreg) 3.125 mg BID PO Last administered on 08/31/17 09:38; Admin Dose 3.125 MG; Start 08/30/17 at 09:00 Clopidogrel Bisulfate (plaVIX) 75 mg DAILY PO Last administered on 08/31/17 09:35; Admin Dose 75 MG; Start 08/30/17 at 09:00 Docusate Sodium (Colace) 100 mg Q12H PO ; Start 08/30/17 at 07:30 Ferrous Sulfate (Ferrous Sulfate (Ec)) 325 mg DAILY PO Last administered on 09:37; Admin Dose 325 MG; Start 08/30/17 at 09:00 Ergocalciferol (Drisdol) 50,000 unit Tu@09 PO Last administered on 08/31/17 09:35; Admin Dose 50,000 UNIT; Start 08/31/17 at 09:00 Ranitidine HCl (Zantac) 150 mg BID PO Last administered on 08/31/17 09:37; Admin Dose 150 MG; Start 08/30/17 at 21:00 Enoxaparin Sodium (Lovenox) 65 mg Q12 SC Last administered on 08/31/17 14:25 ; Admin Dose 65 MG; Start 08/31/17 at 03:30 LORI MIRANDA MD Aug 31, 2017 14:42
[2017-08-31] MEDS: predniSONE 20 MG TAB PO SCH (15:31)
[2017-08-31] MEDS: ACETAMINOPHEN 325 MG TAB PO PRN (15:41)
--- NOTE | 2017-08-31 15:41 | CONS ---
Date/Time of Note Date/Time of Note DATE: 08/31/17 TIME: 15:39 Consultation Date/Type/Reason Admit Date/Time Aug 30, 2017 at 01:20 Date of Consultation: Aug 31, 2017 Past Surgical History Past Surgical Hx: cholecystectomy Social History Smoking Status: Never smoker Exam/Review of Systems Vital Signs Vitals Vital Signs Date Time Temp Pulse Resp B/P Pulse Ox O2 Delivery O2 Flow Rate FiO2 08/31/17 12:05 82 08/31/17 11:57 98.1 18 129/72 96 08/30/17 02:00 Room Air Intake and Output 08/30/17 08/30/17 08/31/17 14:59 22:59 06:59 Intake Total 400 ml Output Total 1600 ml Balance -1200 ml Results Result Diagram: 08/31/1762608/31/17626 Results 24 hrs Laboratory Tests Test 08/30/17 19:04 08/31/17 00:31 08/31/17 05:30 08/31/17 06:27 Troponin I 1.230 *H 0.966 *H 0.669 *H Thyroxine (T4) 8.6 Urine Color YELLOW Urine Clarity CLEAR Urine pH 8.0 Urine Specific [place] 1.006 Urine Ketones NEGATIVE Urine Nitrite NEGATIVE Urine Bilirubin NEGATIVE Urine Urobilinogen NEGATIVE Urine Leukocyte Esterase NEGATIVE Urine Hemoglobin NEGATIVE Urine Osmolality 270 Urine Random Sodium 87 Urine Glucose NEGATIVE Urine Total Protein NEGATIVE White Blood Count 9.3 # Red Blood Count 3.27 L Hemoglobin 10.0 L Hematocrit 29.4 L Mean Corpuscular Volume 89.9 Mean Corpuscular Hemoglobin 30.6 Mean Corpuscular Hemoglobin Concent 34.0 Red Cell Distribution Width 15.5 H Platelet Count 235 Mean Platelet Volume 10.7 H Neutrophils % 69.9 Lymphocytes % 18.6 Monocytes % 6.9 Eosinophils % 3.8 Basophils % 0.3 Nucleated Red Blood Cells % 0.0 Neutrophils # 6.5 Lymphocytes # 1.7 Monocytes # 0.6 Eosinophils # 0.4 Basophils # 0.0 Nucleated Red Blood Cells # 0.0 Sodium Level 131 L Potassium Level 4.3 Chloride Level 100 Carbon Dioxide Level 20 L Anion Gap 15 Blood Urea Nitrogen 19 Creatinine 1.23 Glucose Level 89 Calcium Level 8.0 L Magnesium Level 0.9 *L Total Bilirubin 1.1 Direct Bilirubin 0.00 Indirect Bilirubin 1.1 Aspartate Amino Transf (AST/SGOT) 38 Alanine Aminotransferase (ALT/SGPT) 44 Alkaline Phosphatase 84 Total Protein 5.0 #L Albumin 2.5 L Globulin 2.50 Albumin/Globulin Ratio 1.00 Test 08/31/17 13:39 Troponin I 0.522 *H Medications Medications Current Medications Miscellaneous Information (Pending Santyl Order For Wound Care) This patient swan... PRN PRN XX WOUND CARE; Start 08/30/17 at 06:00 Nitroglycerin (Nitroglycerin (Sl Tab) 0.4 Mg) 1 tab Q5M PRN SL CHEST PAIN; Start 08/30/17 at 07:30 Acetaminophen (Tylenol Tab) 650 mg Q6H PRN PO PAIN LEVEL 1-3 OR FEVER; Start 08/30/17 at 07:30 Morphine Sulfate (morphine) 2 mg Q4H PRN IV PAIN LEVEL 7-10; Start 08/30/17 at 07:30 Allopurinol (Zyloprim) 100 mg BID PO Last administered on 08/31/17 09:37; Admin Dose 100 MG; Start 08/30/17 at 09:00 Aspirin (Halfprin) 81 mg DAILY PO Last administered on 08/31/17 09:37; Admin Dose 81 MG; Start 08/30/17 at 09:00 Atorvastatin Calcium (Lipitor) 80 mg DAILY@21 PO Last administered on 21:40; Admin Dose 80 MG; Start 08/30/17 at 21:00 Carvedilol (Coreg) 3.125 mg BID PO Last administered on 08/31/17 09:38; Admin Dose 3.125 MG; Start 08/30/17 at 09:00 Clopidogrel Bisulfate (plaVIX) 75 mg DAILY PO Last administered on 08/31/17 09:35; Admin Dose 75 MG; Start 08/30/17 at 09:00 Docusate Sodium (Colace) 100 mg Q12H PO ; Start 08/30/17 at 07:30 Ferrous Sulfate (Ferrous Sulfate (Ec)) 325 mg DAILY PO Last administered on 09:37; Admin Dose 325 MG; Start 08/30/17 at 09:00 Ergocalciferol (Drisdol) 50,000 unit Tu@09 PO Last administered on 08/31/17 09:35; Admin Dose 50,000 UNIT; Start 08/31/17 at 09:00 Ranitidine HCl (Zantac) 150 mg BID PO Last administered on 08/31/17 09:37; Admin Dose 150 MG; Start 08/30/17 at 21:00 Enoxaparin Sodium (Lovenox) 65 mg Q12 SC Last administered on 08/31/17 14:25 ; Admin Dose 65 MG; Start 08/31/17 at 03:30; Stop 09/02/17 at 03:29 Prednisone (Prednisone) 40 mg DAILY PO Last administered on 08/31/17 15:31; Admin Dose 40 MG; Start 08/31/17 at 15:00; Stop 09/05/17 at 14:59 HAYDEN WAGNER MD Aug 31, 2017 15:41 HAYDEN WAGNER MD Aug 31, 2017 15:41
--- NOTE | 2017-08-31 16:02 | CONS ---
Date/Time of Note Date/Time of Note DATE: 08/31/17 TIME: 15:58 Assessment/Plan Assessment/Plan Chief Complaint/Hosp Course 1. NSTEMI 2. CAD: S/ P inferior STEMI 3/. S/P PCI RCA 4. HTN 5/ DM 6. HX CHF 7. Dementia 8 hypo Mg Recommendations: replace lytes cont ASA/ plavix plan for [facility] ashlee possible PCI once able to speak with family and obtain consent. replace lytes for now. For his referral. We will continue to follow along with you. HAYDEN WAGNER MD [facility] Problems: Consultation Date/Type/Reason Admit Date/Time Aug 30, 2017 at 01:20 Date of Consultation: Aug 31, 2017 Type of Consultation: CARDIOLOGY Reason for Consultation + TROP Referring Provider: LORI MIRANDA MD Hx of Present Illness cardiology consultation CC: weakness. dizziness HPI This is a 87-year-old gentleman with history of coronary artery disease status post inferior ST elevation myocardial infarction about a month ago who presented with above complaint of dizziness and weakness. Patient is extremely poor historian and has stent baseline dementia. Patient apparently has been taking his medication per report. His troponin has been rising to 1. I was currently asked to evaluate and treat. At this point he has any chest pain or pressure to me. Review of the old social patient also did not have really any chest pain during his previous ST elevation myocardial infarction but he has significant coronary artery disease. PMH CAD: S/P Inferior STEMI S/P PCI RCA HTN DM dementia dyslipidemia family hx no early CAD MEDS REVIEWED ALLERGY NKDA Past Surgical History Past Surgical Hx: cholecystectomy Social History Smoking Status: Never smoker Exam/Review of Systems Vital Signs Vitals Vital Signs Date Time Temp Pulse Resp B/P Pulse Ox O2 Delivery O2 Flow Rate FiO2 08/31/17 15:51 98.5 83 20 120/71 98 08/30/17 02:00 Room Air Intake and Output 08/30/17 08/30/17 08/31/17 14:59 22:59 06:59 Intake Total 400 ml Output Total 1600 ml Balance -1200 ml Exam General: no acute distress HEENT: NC/AT. pupils are equal. round. NECK: NO JVD. no stridor. CV: RRR. systolic murmur; no gallop or rubs. PULM: no wheezing or rhonchi. GI: SOFT, NT, ND, no rebound or guarding Extremity: trace B/L LE edema. no clubbing. neuro: awake and alert, OX2. Psych: calm and pleasant rectal: deferred ECHO REVIEWED. ECG REVIEWED. Results Result Diagram: 08/31/1762608/31/17626 Results 24 hrs Laboratory Tests Test 08/30/17 19:04 08/31/17 00:31 08/31/17 05:30 08/31/17 06:27 Troponin I 1.230 *H 0.966 *H 0.669 *H Thyroxine (T4) 8.6 Urine Color YELLOW Urine Clarity CLEAR Urine pH 8.0 Urine Specific [place] 1.006 Urine Ketones NEGATIVE Urine Nitrite NEGATIVE Urine Bilirubin NEGATIVE Urine Urobilinogen NEGATIVE Urine Leukocyte Esterase NEGATIVE Urine Hemoglobin NEGATIVE Urine Osmolality 270 Urine Random Sodium 87 Urine Glucose NEGATIVE Urine Total Protein NEGATIVE White Blood Count 9.3 # Red Blood Count 3.27 L Hemoglobin 10.0 L Hematocrit 29.4 L Mean Corpuscular Volume 89.9 Mean Corpuscular Hemoglobin 30.6 Mean Corpuscular Hemoglobin Concent 34.0 Red Cell Distribution Width 15.5 H Platelet Count 235 Mean Platelet Volume 10.7 H Neutrophils % 69.9 Lymphocytes % 18.6 Monocytes % 6.9 Eosinophils % 3.8 Basophils % 0.3 Nucleated Red Blood Cells % 0.0 Neutrophils # 6.5 Lymphocytes # 1.7 Monocytes # 0.6 Eosinophils # 0.4 Basophils # 0.0 Nucleated Red Blood Cells # 0.0 Sodium Level 131 L Potassium Level 4.3 Chloride Level 100 Carbon Dioxide Level 20 L Anion Gap 15 Blood Urea Nitrogen 19 Creatinine 1.23 Glucose Level 89 Calcium Level 8.0 L Magnesium Level 0.9 *L Total Bilirubin 1.1 Direct Bilirubin 0.00 Indirect Bilirubin 1.1 Aspartate Amino Transf (AST/SGOT) 38 Alanine Aminotransferase (ALT/SGPT) 44 Alkaline Phosphatase 84 Total Protein 5.0 #L Albumin 2.5 L Globulin 2.50 Albumin/Globulin Ratio 1.00 Test 08/31/17 13:39 Troponin I 0.522 *H Medications Medications Current Medications Miscellaneous Information [facility] This patient swan... PRN PRN XX WOUND CARE; Start 08/30/17 at 06:00 Nitroglycerin (Nitroglycerin (Sl Tab) 0.4 Mg) 1 tab Q5M PRN SL CHEST PAIN; Start 08/30/17 at 07:30 Acetaminophen (Tylenol Tab) 650 mg Q6H PRN PO PAIN LEVEL 1-3 OR FEVER Last administered on 08/31/17 15:41; Admin Dose 650 MG; Start 08/30/17 at 07:30 Morphine Sulfate (morphine) 2 mg Q4H PRN IV PAIN LEVEL 7-10; Start 08/30/17 at 07:30 Allopurinol (Zyloprim) 100 mg BID PO Last administered on 08/31/17 09:37; Admin Dose 100 MG; Start 08/30/17 at 09:00 Aspirin (Halfprin) 81 mg DAILY PO Last administered on 08/31/17 09:37; Admin Dose 81 MG; Start 08/30/17 at 09:00 Atorvastatin Calcium (Lipitor) 80 mg DAILY@21 PO Last administered on 21:40; Admin Dose 80 MG; Start 08/30/17 at 21:00 Carvedilol (Coreg) 3.125 mg BID PO Last administered on 08/31/17 09:38; Admin Dose 3.125 MG; Start 08/30/17 at 09:00 Clopidogrel Bisulfate (plaVIX) 75 mg DAILY PO Last administered on 08/31/17 09:35; Admin Dose 75 MG; Start 08/30/17 at 09:00 Docusate Sodium (Colace) 100 mg Q12H PO ; Start 08/30/17 at 07:30 Ferrous Sulfate (Ferrous Sulfate (Ec)) 325 mg DAILY PO Last administered on 09:37; Admin Dose 325 MG; Start 08/30/17 at 09:00 Ergocalciferol (Drisdol) 50,000 unit @09 PO Last administered on 08/31/17 09:35; Admin Dose 50,000 UNIT; Start 08/31/17 at 09:00 Ranitidine HCl (Zantac) 150 mg BID PO Last administered on 08/31/17 09:37; Admin Dose 150 MG; Start 08/30/17 at 21:00 Enoxaparin Sodium (Lovenox) 65 mg Q12 SC Last administered on 08/31/17 14:25 ; Admin Dose 65 MG; Start 08/31/17 at 03:30; Stop 09/02/17 at 03:29 Prednisone (Prednisone) 40 mg DAILY PO Last administered on 08/31/17t 15:31; Admin Dose 40 MG; Start 08/31/17 at 15:00; Stop 09/05/17 at 14:59 HAYDEN WAGNER MD Aug 31, 2017 16:02
[2017-08-31 18:24] LABS: CALCIUM 8.2 mg/dl (8.4-10.2); CREATININE 1.26 mg/dl (0.61-1.24); MAGNESIUM 2.1 mg/dl (1.7-2.5); POTASSIUM 4.5 mmol/L (3.5-5.1)
[2017-08-31] MEDS: ATORVASTATIN 80 MG TAB PO SCH (20:43)
[2017-09-01] VITALS (13 sets, daily range): BP systolic 100–172; BP diastolic 55–80; PULSE 75–104; RESP 18–19
--- NOTE | 2017-09-01 08:43 | CONS ---
Date/Time of Note Date/Time of Note DATE: 09/01/17 TIME: 08:41 Consult Date/Type/Reason Admit Date/Time Aug 30, 2017 at 01:20 Initial Consult Date 08/31/17 Type of Consultation: CARDIOLOGY Ordering Provider: LORI MIRANDA MD Subjective cardiology follow up note: S: D/W staff family called but no one answered the phone. pt with no chest pain or pressure he still appears confused. O; General: no acute distress HEENT: NC/AT. pupils are equal. round. NECK: NO JVD. no stridor. CV: RRR. systolic murmur; no gallop or rubs. PULM: no wheezing or rhonchi. GI: SOFT, NT, ND, no rebound or guarding Extremity: trace B/L LE edema. no clubbing. neuro: awake and alert, OX2. Psych: calm and pleasant rectal: deferred ECHO REVIEWED. ECG REVIEWED. Objective Vital Signs Date Time Temp Pulse Resp B/P Pulse Ox O2 Delivery O2 Flow Rate FiO2 09/01/17 08:14 77 09/01/17 07:59 97.0 18 138/79 96 08/30/17 02:00 Room Air Intake and Output 08/31/17 08/31/17 09/01/17 15:00 23:00 07:00 Intake Total 400 ml 200 ml Output Total 700 ml 1400 ml Balance -300 ml -1200 ml Results/Medications Result Diagram: 08/31/17 0627 08/31/17 1753 Results 24 hrs Laboratory Tests Test 08/31/17 13:39 08/31/17 17:53 Troponin I 0.522 *H Sodium Level 126 L Potassium Level 4.5 Chloride Level 97 Carbon Dioxide Level 17 L Anion Gap 17 H Blood Urea Nitrogen 18 Creatinine 1.26 H Glucose Level 114 Calcium Level 8.2 L Magnesium Level 2.1 # Medications Current Medications Miscellaneous Information (Pending [facility]yl Order For Wound Care) This patient swan... PRN PRN XX WOUND CARE; Start 08/30/17 at 06:00 Nitroglycerin (Nitroglycerin (Sl Tab) 0.4 Mg) 1 tab Q5M PRN SL CHEST PAIN; Start 08/30/17 at 07:30 Acetaminophen (Tylenol Tab) 650 mg Q6H PRN PO PAIN LEVEL 1-3 OR FEVER Last administered on 08/31/17 15:41; Admin Dose 650 MG; Start 08/30/17 at 07:30 Morphine Sulfate (morphine) 2 mg Q4H PRN IV PAIN LEVEL 7-10; Start 08/30/17 at 07:30 Allopurinol (Zyloprim) 100 mg BID PO Last administered on 08/31/17 20:43; Admin Dose 100 MG; Start 08/30/17 at 09:00 Aspirin (Halfprin) 81 mg DAILY PO Last administered on 08/31/17 09:37; Admin Dose 81 MG; Start 08/30/17 at 09:00 Atorvastatin Calcium (Lipitor) 80 mg DAILY@21 PO Last administered on 20:43; Admin Dose 80 MG; Start 08/30/17 at 21:00 Carvedilol (Coreg) 3.125 mg BID PO Last administered on 08/31/17 20:43; Admin Dose 3.125 MG; Start 08/30/17 at 09:00 Clopidogrel Bisulfate (plaVIX) 75 mg DAILY PO Last administered on 08/31/17 09:35; Admin Dose 75 MG; Start 08/30/17 at 09:00 Docusate Sodium (Colace) 100 mg Q12H PO Last administered on 08/31/17 20:42; Admin Dose 100 MG; Start 08/30/17 at 07:30 Ferrous Sulfate (Ferrous Sulfate (Ec)) 325 mg DAILY PO Last administered on 09:37; Admin Dose 325 MG; Start 08/30/17 at 09:00 Ergocalciferol (Drisdol) 50,000 unit Tu@09 PO Last administered on 08/31/17 09:35; Admin Dose 50,000 UNIT; Start 08/31/17 at 09:00 Ranitidine HCl (Zantac) 150 mg BID PO Last administered on 08/31/17 20:42; Admin Dose 150 MG; Start 08/30/17 at 21:00 Enoxaparin Sodium (Lovenox) 65 mg Q12 SC Last administered on 08/31/17 20:44 ; Admin Dose 65 MG; Start 08/31/17 at 03:30; Stop 09/02/17 at 03:29 Prednisone (Prednisone) 40 mg DAILY PO Last administered on 08/31/17 15:31; Admin Dose 40 MG; Start 08/31/17 at 15:00; Stop 09/05/17 at 14:59 Assessment/Plan Chief Complaint/Hosp Course 1. NSTEMI 2. CAD: S/ P inferior STEMI 3. S/P PCI RCA 4. HTN 5/ DM 6. HX CHF: STABLE NOW 7. Dementia 8 hypo Mg: corrected now 9. CKD Recommendations: replace lytes prn cont ASA/ plavix will dec lovenox to prophylaxis dose. given his lack of chest pain and his confusion will hold off of ashlee emmett. will schedule for lexiscan and proceed with ashlee if significant ischemia is seen. otherwise med therapy For his referral. We will continue to follow along with you. HAYDEN WAGNER MD [facility] Problems: HAYDEN WAGNER MD Sep 01, 2017 08:43
[2017-09-01] MEDS: ASPIRIN (EC) 81 MG TAB PO SCH (09:22)
[2017-09-01] MEDS: CLOPIDOGREL 75 MG TAB PO SCH (09:22)
[2017-09-01] MEDS: DOCUSATE SODIUM 100 MG CAP PO SCH ×2 (09:22→19:30)
[2017-09-01] MEDS: predniSONE 20 MG TAB PO SCH (09:22)
[2017-09-01] MEDS: RANITIDINE 150 MG TAB PO SCH ×2 (09:22→20:20)
[2017-09-01] MEDS: FERROUS SULFATE (EC) 325 MG TAB PO SCH (09:23)
[2017-09-01] MEDS: ALLOPURINOL 100 MG TAB PO SCH ×2 (09:23→20:20)
[2017-09-01] MEDS: ENOXAPARIN 80 MG/0.8 ML SYG SC SCH ×2 (09:26→20:29)
[2017-09-01 09:34] LABS: BASOPHILS % 0.1 % (0.0-2.0); HEMATOCRIT 31.2 % (42.0-52.0); HEMOGLOBIN 10.5 g/dl (14.0-18.0); LYMPHOCYTES # 1.2 10^3/ul (0.8-2.9); LYMPHOCYTES % 16.1 % (15.0-51.0); MEAN CORPUSCULAR HEMOGLOBIN 30.5 pg (29.0-33.0); MEAN CORPUSCULAR HGB CONC 33.7 g/dl (32.0-37.0); MEAN CORPUSCULAR VOLUME 90.7 fl (82.0-101.0); MEAN PLATELET VOLUME 10.4 fl (7.4-10.4); MONOCYTE # 0.2 10^3/ul (0.3-0.9); MONOCYTES % 2.5 % (0.0-11.0); NEUTROPHIL # 5.8 10^3/ul (1.6-7.5); NEUTROPHILS % 80.9 % (39.0-77.0); PLATELET COUNT 282 10^3/UL (140-415); RED BLOOD COUNT 3.44 10^6/ul (4.70-6.10); RED CELL DISTRIBUTION WIDTH 15.2 % (11.5-14.5); WHITE BLOOD COUNT 7.2 10^3/ul (4.8-10.8)
[2017-09-01 09:59] LABS: CALCIUM 8.6 mg/dl (8.4-10.2); CREATININE 1.29 mg/dl (0.61-1.24); MAGNESIUM 1.8 mg/dl (1.7-2.5); POTASSIUM 4.3 mmol/L (3.5-5.1)
--- NOTE | 2017-09-01 16:53 | PN ---
Date/Time of Note Date/Time of Note DATE: 09/01/17 TIME: 16:51 Assessment/Plan VTE Prophylaxis VTE Prophylaxis Intervention: SCD's Lines/Catheters IV Catheter Type (from Nrsg): Saline Lock Urinary Cath still in place: Yes Reason Cath still needed: other (indicate) Assessment/Plan Assessment/Plan 87 yo M with multiple hospitalizations in recent months, initially had gallstone pancreatitis, then had STEMI now here with generalized weakness #gout flare: prednisone burst given CKD cont home allopurinol #elevated trop: clinical significance unclear, now downtrending TTE unremarkable continue home cardiac meds including asa, statin, BP control cardiology team planning on stress test tomorrow #low albumin: repeat UA without proteinuria RD eval for ?poor PO? #subclinical hypothyroid: outpatient follow up #weakness: no OT needs. PT advising PT #compression deformity: vit D low 6 days ago. started ergo appears pt seen by neurosurg during recent admit but note not yet available #hypotonic hyponatremia: cont FW restriction low serum osm and nl urine osm consistent with SIADH, etio of which is unclear Subjective 24 Hr Interval Summary Free Text/Dictation stable Exam/Review of Systems Vital Signs Vitals Vital Signs Date Time Temp Pulse Resp B/P Pulse Ox O2 Delivery O2 Flow Rate FiO2 09/01/17 16:17 104 09/01/17 15:46 98.8 19 150/74 98 08/30/17 02:00 Room Air Intake and Output 08/31/17 08/31/17 09/01/17 15:00 23:00 07:00 Intake Total 400 ml 200 ml Output Total 700 ml 1400 ml Balance -300 ml -1200 ml Exam nad no mrg lungs clear abd soft moves exts freely Results Result Diagram: 09/01/17 0853 09/01/17 0853 Results 24 hrs Laboratory Tests Test 08/31/17 17:53 09/01/17 08:53 Sodium Level 126 L 129 L Potassium Level 4.5 4.3 Chloride Level 97 99 Carbon Dioxide Level 17 L 19 L Anion Gap 17 H 15 Blood Urea Nitrogen 18 20 Creatinine 1.26 H 1.29 H Glucose Level 114 116 Calcium Level 8.2 L 8.6 Magnesium Level 2.1 # 1.8 White Blood Count 7.2 # Red Blood Count 3.44 L Hemoglobin 10.5 L Hematocrit 31.2 L Mean Corpuscular Volume 90.7 Mean Corpuscular Hemoglobin 30.5 Mean Corpuscular Hemoglobin Concent 33.7 Red Cell Distribution Width 15.2 H Platelet Count 282 Mean Platelet Volume 10.4 Neutrophils % 80.9 H Lymphocytes % 16.1 Monocytes % 2.5 Eosinophils % 0.0 Basophils % 0.1 Nucleated Red Blood Cells % 0.0 Neutrophils # 5.8 Lymphocytes # 1.2 Monocytes # 0.2 L Eosinophils # 0.0 Basophils # 0.0 Nucleated Red Blood Cells # 0.0 Medications Medications Current Medications Miscellaneous Information (Pending Santyl Order For Wound Care) This patient swan... PRN PRN XX WOUND CARE; Start 08/30/17 at 06:00 Nitroglycerin (Nitroglycerin (Sl Tab) 0.4 Mg) 1 tab Q5M PRN SL CHEST PAIN; Start 08/30/17 at 07:30 Acetaminophen (Tylenol Tab) 650 mg Q6H PRN PO PAIN LEVEL 1-3 OR FEVER Last administered on 08/31/17 15:41; Admin Dose 650 MG; Start 08/30/17 at 07:30 Morphine Sulfate (morphine) 2 mg Q4H PRN IV PAIN LEVEL 7-10; Start 08/30/17 at 07:30 Allopurinol (Zyloprim) 100 mg BID PO Last administered on 09/01/17 09:23; Admin Dose 100 MG; Start 08/30/17 at 09:00 Aspirin (Halfprin) 81 mg DAILY PO Last administered on 09/01/17 09:22; Admin Dose 81 MG; Start 08/30/17 at 09:00 Atorvastatin Calcium (Lipitor) 80 mg DAILY@21 PO Last administered on 20:43; Admin Dose 80 MG; Start 08/30/17 at 21:00 Carvedilol (Coreg) 3.125 mg BID PO Last administered on 09/01/17 09:23; Admin Dose 3.125 MG; Start 08/30/17 at 09:00 Clopidogrel Bisulfate (plaVIX) 75 mg DAILY PO Last administered on 09/01/17 09:22; Admin Dose 75 MG; Start 08/30/17 at 09:00 Docusate Sodium (Colace) 100 mg Q12H PO Last administered on 09/01/17 09:22; Admin Dose 100 MG; Start 08/30/17 at 07:30 Ferrous Sulfate (Ferrous Sulfate (Ec)) 325 mg DAILY PO Last administered on 09:23; Admin Dose 325 MG; Start 08/30/17 at 09:00 Ergocalciferol (Drisdol) 50,000 unit @09 PO Last administered on 08/31/17 09:35; Admin Dose 50,000 UNIT; Start 08/31/17 at 09:00 Ranitidine HCl (Zantac) 150 mg BID PO Last administered on 09/01/17 09:22; Admin Dose 150 MG; Start 08/30/17 at 21:00 Enoxaparin Sodium (Lovenox) 65 mg Q12 SC Last administered on 09/01/17 09:26 ; Admin Dose 65 MG; Start 08/31/17 at 03:30; Stop 09/02/17 at 03:29 Prednisone (Prednisone) 40 mg DAILY PO Last administered on 09/01/17 09:22; Admin Dose 40 MG; Start 08/31/17 at 15:00; Stop 09/05/17 at 14:59 LORI MIRANDA MD Sep 01, 2017 16:53
[2017-09-01] MEDS: ATORVASTATIN 80 MG TAB PO SCH (20:19)
[2017-09-02] VITALS (49 sets, daily range): BP systolic 73–182; BP diastolic 50–160; PULSE 64–89; RESP 14–28
--- NOTE | 2017-09-02 03:10 | RADRPT ---
PROCEDURE: MR Brain with and without contrast. CLINICAL INDICATION: Failure to thrive. TECHNIQUE: An MRI of the brain was performed utilizing the following sequences: Sagittal T1 weigh krish, axial T2 weighted, axial diffusion weighted (EPI technique x=[id number]), axial ADC mapping, axial FL AIR, coronal GRE, and post contrast coronal, sagittal, and axial T1 weighted. 10 cc of Magnevist wa s given intravenously without complication. COMPARISON: CT brain 08/30/2017. FINDINGS: No diffusion weighted abnormalities are seen to suggest the presence of acute ischemia or recent inf arct. There is no intracranial hemorrhage, mass effect, or midline shift. No extra-axial fluid col lection is seen. Moderately severe generalized parenchymal volume loss is present. Several small foc i of increased T2 weighted/FLAIR signal intensity are seen in the deep and subcortical white matter consistent with microvascular white matter ischemic disease. 6 mm hyperintense focus on T1-8 image 1 1 within the lateral aspect of the right mid brain corresponds to a vessel on postcontrast coronal i mages. Normal flow voids are visible in the proximal intracranial arteries and dural sinuses, indicating p atency. The postcontrast images show no abnormal parenchymal, leptomeningeal, or dural enhancement. Bilateral maxillary sinus retention cysts or polyps. Mild mucosal thickening of the bilateral ethmoi d and periphery of the frontal sinuses are present. Moderate opacification of the right mastoid sinu s is present. IMPRESSION: 1. No evidence of acute intracranial pathology. 2. Moderate generalized parenchymal volume loss. 3. Microvascular white matter ischemic disease. 4. Moderate opacification of the right mastoid sinus. 5. Minimal paranasal sinus disease. RPTAT: [facility] Physician Luciana Date Time Electronically viewed and signed by Physician Luciana on 09/02/2017 03:10 RR/
[2017-09-02] MEDS: DOCUSATE SODIUM 100 MG CAP PO SCH ×3 (07:30→20:47)
[2017-09-02] MEDS ORDERED: REGADENOSON 0.4 MG/5 ML SYG ONE (08:09)
[2017-09-02 08:28] LABS: HEMATOCRIT 27.7 % (42.0-52.0); HEMOGLOBIN 9.4 g/dl (14.0-18.0); LYMPHOCYTES # 1.5 10^3/ul (0.8-2.9); LYMPHOCYTES % 18.4 % (15.0-51.0); MEAN CORPUSCULAR HEMOGLOBIN 30.5 pg (29.0-33.0); MEAN CORPUSCULAR HGB CONC 33.9 g/dl (32.0-37.0); MEAN CORPUSCULAR VOLUME 89.9 fl (82.0-101.0); MEAN PLATELET VOLUME 10.3 fl (7.4-10.4); MONOCYTE # 0.4 10^3/ul (0.3-0.9); MONOCYTES % 4.9 % (0.0-11.0); NEUTROPHIL # 6.4 10^3/ul (1.6-7.5); NEUTROPHILS % 76.2 % (39.0-77.0); PLATELET COUNT 298 10^3/UL (140-415); RED BLOOD COUNT 3.08 10^6/ul (4.70-6.10); RED CELL DISTRIBUTION WIDTH 15.2 % (11.5-14.5); WHITE BLOOD COUNT 8.4 10^3/ul (4.8-10.8)
[2017-09-02 08:55] LABS: ALBUMIN 2.6 g/dl (3.3-4.9); ALBUMIN/GLOBULIN RATIO 1.04; BILIRUBIN,INDIRECT 0.6 mg/dl (0-1.1); BILIRUBIN,TOTAL 0.6 mg/dl (0.2-1.3); CALCIUM 8.5 mg/dl (8.4-10.2); CREATININE 1.2 mg/dl (0.61-1.24); MAGNESIUM 1.8 mg/dl (1.7-2.5); POTASSIUM 4.7 mmol/L (3.5-5.1); TOTAL PROTEIN 5.1 g/dl (6.1-8.1)
[2017-09-02 09:07] LABS: CK-MB 3.35 ng/ml (0.0-2.4); TROPONIN-I 0.235 ng/ml (0.00-0.12)
--- NOTE | 2017-09-02 09:32 | RADRPT ---
PROCEDURE: Lexiscan myocardial perfusion study CLINICAL INDICATION: 87 -year-old patient complaining of chest pain. TECHNIQUE: Lexiscan 0.4 mg intravenously separate acquisition gated myocardial perfusion SPECT usi ng Tc 99m Myoview 29.4 mCi intravenously at stress and Tc-99m Myoview, 9.4 mCi intravenously at rest was performed using the rest/stress sequence. Poststress Myoview SPECT images were obtained in the supine position. COMPARISON: No prior studies. FINDINGS: Perfusion images reveal a moderate size moderate in degree nonreversible perfusion defect in the inf erior and inferolateral warren. There is no evidence of stress-induced ischemia. Lexiscan post stress gated SPECT images demonstrate no wall motion abnormalities. IMPRESSION: 1. The type and distribution of the scintigraphic abnormalities are most consistent with a moderate -sized nonreversible perfusion defect in the inferior and inferolateral warren. 2. No wall motion abnormalities. 3. The left ventricle ejection fraction at stress is 55%. A call report was made to Dr. Vitale at 09:30 a.m. on September 02, 2017. RPTAT: HH .Peri Parker MD, Date Time Electronically viewed and signed by .Peri Parker MD, MD on 09/02/2017 09:32 .L/
--- NOTE | 2017-09-02 09:34 | CONS ---
Date/Time of Note Date/Time of Note DATE: 09/02/17 TIME: 09:33 Consult Date/Type/Reason Admit Date/Time Aug 30, 2017 at 01:20 Initial Consult Date 08/31/17 Type of Consultation: CARDIOLOGY Ordering Provider: LORI MIRANDA MD Subjective cardiology follow up note: S: D/W staff pt with no chest pain or pressure he still appears less confused. O; General: no acute distress HEENT: NC/AT. pupils are equal. round. NECK: NO JVD. no stridor. CV: RRR. systolic murmur; no gallop or rubs. PULM: no wheezing or rhonchi. GI: SOFT, NT, ND, no rebound or guarding Extremity: trace B/L LE edema. no clubbing. neuro: awake and alert, OX2. Psych: calm and pleasant rectal: deferred ECHO REVIEWED. ECG REVIEWED. Objective Vital Signs Date Time Temp Pulse Resp B/P Pulse Ox O2 Delivery O2 Flow Rate FiO2 09/02/17 08:18 83 09/02/17 08:03 98.4 19 161/74 99 08/30/17 02:00 Room Air Intake and Output 09/01/17 09/01/17 09/02/17 14:59 22:59 06:59 Intake Total 500 ml 800 ml Output Total 1100 ml Balance 500 ml -300 ml Results/Medications Result Diagram: 09/02/17 0732 09/02/17 0732 Results 24 hrs Laboratory Tests Test 09/02/17 07:32 White Blood Count 8.4 Red Blood Count 3.08 L Hemoglobin 9.4 L Hematocrit 27.7 L Mean Corpuscular Volume 89.9 Mean Corpuscular Hemoglobin 30.5 Mean Corpuscular Hemoglobin Concent 33.9 Red Cell Distribution Width 15.2 H Platelet Count 298 Mean Platelet Volume 10.3 Neutrophils % 76.2 Lymphocytes % 18.4 Monocytes % 4.9 Eosinophils % 0.0 Basophils % 0.0 Nucleated Red Blood Cells % 0.0 Neutrophils # 6.4 Lymphocytes # 1.5 Monocytes # 0.4 Eosinophils # 0.0 Basophils # 0.0 Nucleated Red Blood Cells # 0.0 Sodium Level 130 L Potassium Level 4.7 Chloride Level 101 Carbon Dioxide Level 21 Anion Gap 13 Blood Urea Nitrogen 41 #H Creatinine 1.20 Glucose Level 104 Calcium Level 8.5 Magnesium Level 1.8 Total Bilirubin 0.6 Direct Bilirubin 0.00 Indirect Bilirubin 0.6 Aspartate Amino Transf (AST/SGOT) 30 Alanine Aminotransferase (ALT/SGPT) 42 Alkaline Phosphatase 83 Creatine Kinase 236 H Creatine Kinase Index 1.4 Creatinine Kinase MB (Mass) 3.35 H Troponin I 0.235 *H Total Protein 5.1 L Albumin 2.6 L Globulin 2.50 Albumin/Globulin Ratio 1.04 Medications Current Medications Miscellaneous Information (Pending Santyl Order For Wound Care) This patient swan... PRN PRN XX WOUND CARE; Start 08/30/17 at 06:00 Nitroglycerin (Nitroglycerin (Sl Tab) 0.4 Mg) 1 tab Q5M PRN SL CHEST PAIN; Start 08/30/17 at 07:30 Acetaminophen (Tylenol Tab) 650 mg Q6H PRN PO PAIN LEVEL 1-3 OR FEVER Last administered on 08/31/17 15:41; Admin Dose 650 MG; Start 08/30/17 at 07:30 Morphine Sulfate (morphine) 2 mg Q4H PRN IV PAIN LEVEL 7-10; Start 08/30/17 at 07:30 Allopurinol (Zyloprim) 100 mg BID PO Last administered on 09/01/17 20:20; Admin Dose 100 MG; Start 08/30/17 at 09:00 Aspirin (Halfprin) 81 mg DAILY PO Last administered on 09/01/17 09:22; Admin Dose 81 MG; Start 08/30/17 at 09:00 Atorvastatin Calcium (Lipitor) 80 mg DAILY@21 PO Last administered on 20:19; Admin Dose 80 MG; Start 08/30/17 at 21:00 Carvedilol (Coreg) 3.125 mg BID PO Last administered on 09/01/17 20:20; Admin Dose 3.125 MG; Start 08/30/17 at 09:00 Clopidogrel Bisulfate (plaVIX) 75 mg DAILY PO Last administered on 09/01/17 09:22; Admin Dose 75 MG; Start 08/30/17 at 09:00 Docusate Sodium (Colace) 100 mg Q12H PO Last administered on 09/01/17 09:22; Admin Dose 100 MG; Start 08/30/17 at 07:30 Ferrous Sulfate (Ferrous Sulfate (Ec)) 325 mg DAILY PO Last administered on 09:23; Admin Dose 325 MG; Start 08/30/17 at 09:00 Ergocalciferol (Drisdol) 50,000 unit @ PO Last administered on 08/31/17 09:35; Admin Dose 50,000 UNIT; Start 08/31/17 at 09:00 Ranitidine HCl (Zantac) 150 mg BID PO Last administered on 09/01/17 20:20; Admin Dose 150 MG; Start 08/30/17 at 21:00 Prednisone (Prednisone) 40 mg DAILY PO Last administered on 09/01/17 09:22; Admin Dose 40 MG; Start 08/31/17 at 15:00; Stop 09/05/17 at 14:59 Assessment/Plan Chief Complaint/Hosp Course 1. NSTEMI 2. CAD: S/ P inferior STEMI 3. S/P PCI RCA 4. HTN 5/ DM 6. HX CHF: STABLE NOW 7. Dementia 8 hypo Mg: corrected now 9. CKD Recommendations: replace lytes prn cont ASA/ plavix will dec lovenox to prophylaxis dose. lexiscan today and will proceed with ashlee if significant ischemia is seen and ok with family. otherwise med therapy For his referral. We will continue to follow along with you. HAYDEN WAGNER MD FAC Problems: HAYDEN WAGNER MD Sep 02, 2017 09:34
[2017-09-02] MEDS ORDERED: ENOXAPARIN 40 MG/0.4 ML SYG SC SCH (10:00)
[2017-09-02] MEDS: FERROUS SULFATE (EC) 325 MG TAB PO SCH (10:20)
[2017-09-02] MEDS: RANITIDINE 150 MG TAB PO SCH (10:20)
[2017-09-02] MEDS: ASPIRIN (EC) 81 MG TAB PO SCH (10:20)
[2017-09-02] MEDS: ACETAMINOPHEN 325 MG TAB PO PRN (10:20)
[2017-09-02] MEDS: predniSONE 20 MG TAB PO SCH (10:20)
[2017-09-02] MEDS: BALSAM PERU/CASTOR OIL 60 GM TUBE TOP SCH (10:21)
[2017-09-02] MEDS: CLOPIDOGREL 75 MG TAB PO SCH (10:21)
[2017-09-02] MEDS: ALLOPURINOL 100 MG TAB PO SCH ×2 (10:21→20:51)
[2017-09-02] MEDS: ALBUTEROL/IPRATROPIUM (NEB) 3 ML AMP HHN PRN (10:55)
[2017-09-02 11:37] LABS: BASOPHILS % 0.1 % (0.0-2.0); EOSINOPHILS % 0.3 % (0.0-7.0); HEMATOCRIT 27.9 % (42.0-52.0); HEMOGLOBIN 8.9 g/dl (14.0-18.0); LYMPHOCYTES % 19.7 % (15.0-51.0); MEAN CORPUSCULAR HEMOGLOBIN 30.1 pg (29.0-33.0); MEAN CORPUSCULAR HGB CONC 31.9 g/dl (32.0-37.0); MEAN CORPUSCULAR VOLUME 94.3 fl (82.0-101.0); MEAN PLATELET VOLUME 10.3 fl (7.4-10.4); MONOCYTE # 0.6 10^3/ul (0.3-0.9); MONOCYTES % 5.7 % (0.0-11.0); NEUTROPHIL # 7.6 10^3/ul (1.6-7.5); NEUTROPHILS % 73.4 % (39.0-77.0); PLATELET COUNT 310 10^3/UL (140-415); RED BLOOD COUNT 2.96 10^6/ul (4.70-6.10); RED CELL DISTRIBUTION WIDTH 15.3 % (11.5-14.5); WHITE BLOOD COUNT 10.4 10^3/ul (4.8-10.8)
--- NOTE | 2017-09-02 12:58 | RADRPT ---
PROCEDURE: XR portable chest CLINICAL INDICATION: Shortness of breath TECHNIQUE: Portable semi upright chest radiograph COMPARISON: Portable semi upright chest radiograph 08/29/2017 FINDINGS: Improved aeration in both lower lobes. No significant change in right upper lung zone small nodule which likely is calcified and thus may r epresent a calcified granuloma; compare to older corresponding imaging studies. No other significant interval changes seen. IMPRESSION: 1. Improved aeration in both lower lobes RPTAT: TT [place] Physician Date Time Electronically viewed and signed by [place] Physician on 09/02/2017 12:58 JS/
[2017-09-02] MEDS ORDERED: NORepinephrine 8MG/250 ML (PMX 250 ML ONE (13:05)
--- NOTE | 2017-09-02 13:09 | PN ---
Date/Time of Note Date/Time of Note DATE: 09/02/17 TIME: 13:07 Assessment/Plan VTE Prophylaxis VTE Prophylaxis Intervention: SCD's Lines/Catheters IV Catheter Type (from Nrs): Saline Lock Urinary Cath still in place: Yes Reason Cath still needed: other (indicate) (dc) Assessment/Plan Assessment/Plan 87 yo M with multiple hospitalizations in recent months, initially had gallstone pancreatitis, then had STEMI now here with generalized weakness. Now with overt evidence of hypovolemic shock 2/2 GI bleed #sudden onset hypovolemic shock 2/2 GIB: new onset today. d/dx includes diverticular etio v complication of pt's previous duodenal ulcer transfuse blood to goal hgb >7 empiric PPI drip. No known hx of EVs so no compelling indication for octreotide volume and levophed resuscitation GI aware, endoscopies pending #gout flare: prednisone burst given CKD cont home allopurinol #elevated trop: clinical significance unclear, stress test today unremarkable TTE unremarkable continue home cardiac meds including asa, statin, BP control #low albumin: repeat UA without proteinuria RD eval for ?poor PO? #subclinical hypothyroid: outpatient follow up #weakness: no OT needs. PT advising HH PT #compression deformity: vit D low 6 days ago. 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 However after getting back to his room, pt had a syncopal v presyncopal evidence while sitting on the toilet. Stool contained bright red blood. Pt was laid in bed, then had several other very bloody bowel movements. He became hypotensive and was transferred to the ICU for more aggressive resuscitation Exam/Review of Systems Vital Signs Vitals Vital Signs Date Time Temp Pulse Resp B/P Pulse Ox O2 Delivery O2 Flow Rate FiO2 09/02/17 12:25 75 09/02/17 11:39 98.5 20 115/64 100 09/02/17 11:05 3.0 08/30/17 02:00 Room Air Intake and Output 09/01/17 09/01/17 09/02/17 15:00 23:00 07:00 Intake Total 500 ml 800 ml Output Total 1100 ml Balance 500 ml -300 ml Exam pale, fatigued no mrg abd soft +bright red blood per rectum no edema hgb after first dark bowel movement in the 8s Last EGD was part of ERCP in March IMPRESSION 1. Large duodenal ulcer with no stigmata of recent bleeding. 2. Significant cystic duct leak. 3. Post-endoscopic retrograde sphincterotomy. 4. Post-endoscopic placement of a biliary stent [place] 10, 7 cm stent. Results Result Diagram: 09/02/17 1117 09/02/17 0732 Results 24 hrs Laboratory Tests Test 09/02/17 07:32 09/02/17 10:40 09/02/17 11:17 09/02/17 12:35 White Blood Count 8.4 10.4 # Red Blood Count 3.08 L 2.96 L Hemoglobin 9.4 L 8.9 L Hematocrit 27.7 L 27.9 L Mean Corpuscular Volume 89.9 94.3 Mean Corpuscular Hemoglobin 30.5 30.1 Mean Corpuscular Hemoglobin Concent 33.9 31.9 L Red Cell Distribution Width 15.2 H 15.3 H Platelet Count 298 310 Mean Platelet Volume 10.3 10.3 Neutrophils % 76.2 73.4 Lymphocytes % 18.4 19.7 Monocytes % 4.9 5.7 Eosinophils % 0.0 0.3 Basophils % 0.0 0.1 Nucleated Red Blood Cells % 0.0 0.0 Neutrophils # 6.4 7.6 H Lymphocytes # 1.5 2.0 Monocytes # 0.4 0.6 Eosinophils # 0.0 0.0 Basophils # 0.0 0.0 Nucleated Red Blood Cells # 0.0 0.0 Sodium Level 130 L Potassium Level 4.7 Chloride Level 101 Carbon Dioxide Level 21 Anion Gap 13 Blood Urea Nitrogen 41 #H Creatinine 1.20 Glucose Level 104 Calcium Level 8.5 Magnesium Level 1.8 Total Bilirubin 0.6 Direct Bilirubin 0.00 Indirect Bilirubin 0.6 Aspartate Amino Transf (AST/SGOT) 30 Alanine Aminotransferase (ALT/SGPT) 42 Alkaline Phosphatase 83 Creatine Kinase 236 H Creatine Kinase Index 1.4 Creatinine Kinase MB (Mass) 3.35 H Troponin I 0.235 *H Total Protein 5.1 L Albumin 2.6 L Globulin 2.50 Albumin/Globulin Ratio 1.04 Bedside Glucose 128 155 Medications Medications Current Medications Miscellaneous Information (Pending Santyl Order For Wound Care) This patient swan... PRN PRN XX WOUND CARE; Start 08/30/17 at 06:00 Nitroglycerin (Nitroglycerin (Sl Tab) 0.4 Mg) 1 tab Q5M PRN SL CHEST PAIN; Start 08/30/17 at 07:30 Acetaminophen (Tylenol Tab) 650 mg Q6H PRN PO PAIN LEVEL 1-3 OR FEVER Last administered on 09/02/17 10:20; Admin Dose 650 MG; Start 08/30/17 at 07:30 Morphine Sulfate (morphine) 2 mg Q4H PRN IV PAIN LEVEL 7-10; Start 08/30/17 at 07:30 Allopurinol (Zyloprim) 100 mg BID PO Last administered on 09/02/17 10:21; Admin Dose 100 MG; Start 08/30/17 at 09:00 Aspirin (Halfprin) 81 mg DAILY PO Last administered on 09/02/17 10:20; Admin Dose 81 MG; Start 08/30/17 at 09:00 Atorvastatin Calcium (Lipitor) 80 mg DAILY@21 PO Last administered on 20:19; Admin Dose 80 MG; Start 08/30/17 at 21:00 Carvedilol (Coreg) 3.125 mg BID PO Last administered on 09/02/17 10:21; Admin Dose 3.125 MG; Start 08/30/17 at 09:00 Clopidogrel Bisulfate (plaVIX) 75 mg DAILY PO Last administered on 09/02/17 10:21; Admin Dose 75 MG; Start 08/30/17 at 09:00; Status Future Hold Docusate Sodium (Colace) 100 mg Q12H PO Last administered on 09/01/17 09:22; Admin Dose 100 MG; Start 08/30/17 at 07:30 Ferrous Sulfate (Ferrous Sulfate (Ec)) 325 mg DAILY PO Last administered on 10:20; Admin Dose 325 MG; Start 08/30/17 at 09:00 Ergocalciferol (Drisdol) 50,000 unit Tu@09 PO Last administered on 08/31/17 09:35; Admin Dose 50,000 UNIT; Start 08/31/17 at 09:00 Prednisone (Prednisone) 40 mg DAILY PO Last administered on 09/02/17 10:20; Admin Dose 40 MG; Start 08/31/17 at 15:00; Stop 09/05/17 at 14:59 Enoxaparin Sodium (Lovenox) 40 mg DAILY SC Last administered on 09/02/17 10: 31; Admin Dose 40 MG; Start 09/02/17 at 10:00; Status Future Hold Lactulose (Enulose) 40 gm Q2 PO ; Start 09/02/17 at 13:00; Stop 09/02/17 at 21 :01 Lactulose 40 gm 40 gm Q2 PO ; Start 09/03/17 at 09:00; Stop 09/03/17 at 11:01 Pantoprazole 80 mg/Sodium Chloride 100 ml @ 400 mls/hr ONCE ONCE IVPB ; Start 09/02/17 at 13:30; Stop 09/02/17 at 13:44; Status UNV Pantoprazole/ Sodium Chloride (Protonix Iv/NS) 100 ml @ 10 mls/hr Q10H IV ; Start 09/02/17 at 13:30; Status UNV LORI MIRANDA MD Sep 02, 2017 13:09
[2017-09-02] MEDS ORDERED: SOD CHLORIDE 0.9% 1,000 ML IV ONE ×3 (13:30→14:30)
[2017-09-02] MEDS ORDERED: PANTOPRAZOLE IV 80 MG in SOD CHLORIDE 0.9% 100 ML IVPB ONE (13:30)
[2017-09-02] MEDS ORDERED: NORepinephrine 8MG/250 ML (PMX 250 ML IV SCH (13:30)
[2017-09-02 14:48] LABS: ABNORMAL IP MESSAGE 1; BASOPHILS % 0.1 % (0.0-2.0); EOSINOPHILS # 0.1 10^3/ul (0.0-0.5); EOSINOPHILS % 0.4 % (0.0-7.0); HEMATOCRIT 18.7 % (42.0-52.0); LYMPHOCYTES # 1.7 10^3/ul (0.8-2.9); LYMPHOCYTES % 11.9 % (15.0-51.0); MEAN CORPUSCULAR HGB CONC 32.6 g/dl (32.0-37.0); MEAN CORPUSCULAR VOLUME 92.1 fl (82.0-101.0); MEAN PLATELET VOLUME 10.5 fl (7.4-10.4); MONOCYTE # 0.9 10^3/ul (0.3-0.9); MONOCYTES % 6.2 % (0.0-11.0); NEUTROPHIL # 11.5 10^3/ul (1.6-7.5); NEUTROPHILS % 80.4 % (39.0-77.0); PLATELET COUNT 256 10^3/UL (140-415); POSITIVE DIFF @See below; RED BLOOD COUNT 2.03 10^6/ul (4.70-6.10); RED CELL DISTRIBUTION WIDTH 15.3 % (11.5-14.5); WHITE BLOOD COUNT 14.3 10^3/ul (4.8-10.8)
[2017-09-02 14:56] LABS: HEMOGLOBIN 6.1 g/dl (14.0-18.0)
[2017-09-02 15:04] LABS: INR 1.18; PROTIME 15.2 Sec (11.9-14.9); PT RATIO 1.2
[2017-09-02 15:05] LABS: ALBUMIN 1.9 g/dl (3.3-4.9); ALBUMIN/GLOBULIN RATIO 0.79; BILIRUBIN,INDIRECT 0.5 mg/dl (0-1.1); BILIRUBIN,TOTAL 0.5 mg/dl (0.2-1.3); CALCIUM 7.2 mg/dl (8.4-10.2); CREATININE 1.3 mg/dl (0.61-1.24); MAGNESIUM 1.8 mg/dl (1.7-2.5); PARTIAL THROMBOPLASTIN TIME 33.9 Sec (25.0-35.0); PHOSPHORUS 3.6 mg/dl (2.5-4.9); POTASSIUM 4.6 mmol/L (3.5-5.1); TOTAL PROTEIN 4.3 g/dl (6.1-8.1)
--- NOTE | 2017-09-02 15:17 | RADRPT ---
Vent Rate: 67 bpm RR Interval: 0 msec [place] Interval: 152 msec QRS Duration: 92 msec QT Interval: 396 msec QTC Interval: 418 msec P-R-T [place]: 16 - -39 - -20 degrees Normal sinus rhythm Left axis deviation Moderate voltage criteria for LVH, may be normal variant Lateral infarct , age undetermined Inferior infarct , age undetermined Abnormal ECG Electronically Signed By: Moody Morales [id number]
[2017-09-02] MEDS ORDERED: LIDOCAINE 1% (MPF) 5 ML VIAL SC ONE (15:30)
[2017-09-02] MEDS: LACTULOSE 30ML CUP PO SCH ×3 (15:36→17:12)
[2017-09-02] MEDS: PANTOPRAZOLE IV 80 MG in SOD CHLORIDE 0.9% 100 ML IV SCH ×2 (15:37→23:37)
--- NOTE | 2017-09-02 17:50 | CONS ---
Date/Time of Note Date/Time of Note DATE: 09/02/17 TIME: 17:22 Assessment/Plan Assessment/Plan Chief Complaint/Hosp Course Summary Assessment and Plan: Assessment: Hematochezia R/o diverticular bleed vs AVM vs large upper GI bleed. NSTEMI CAD Recent PCI RCA HTN DM HX CHF Dementia Hypomagnesemia/placed Plan: Cardiac clearance obtained patient must remain on Plavix and aspirin Plan for EGD/colonoscopy tomorrow Endoscopy - risks/benefits/alternatives/indications of procedure and sedation/ anesthesia discussed with patient who states understanding and gives informed consent to proceed. PARQ held and questions were answered. Keep patient n.p.o. Keep NGT in place to give prep- d/c in am Her H/H transfuse 2 units for hemoglobin less than 7.0 Seen in collaboration with Dr. Burgess Problems: Consultation Date/Type/Reason Admit Date/Time Aug 30, 2017 at 01:20 Date of Consultation: Sep 02, 2017 Type of Consultation: GI Reason for Consultation Hematochezia Hx of Present Illness This is a 87-year-old male with past medical history of gastric ulcer, gallstone pancreatitis complicated by postop abscess status post drainage, ESBL E. coli bacteremia, CAD, s/p PCI with stent to RCA. Patient presented to the ER with generalized weakness on further evaluation he was found to have a STEMI and underwent emergent cardiac cath with PCI with stent to RCA for 100% occlusion. He had a stress test today, upon return to his room patient went to the bathroom and was found to be unresponsive [employer] DIPPING MACHINE OPERATOR was called at that time patient noted to have multiple episodes of hematochezia. Family initially described as bright red, however after further evaluation initially stated first bowel movement was black followed by bright red stools. Patient tried to get out of bed again an experienced an episode of syncope and another LACQU[employer] DIPPING MACHINE OPERATOR was called. He was then transferred to ICU, where he continues to have multiple bloody stools. Currently hemoglobin and hematocrit are being monitored will be transfused as needed for hemoglobin less than to 7.0. Cardiac clearance obtained from Dr. Vitale, with recent RI patient must continue Plavix and aspirin. NGT placed, no active bleeding noted. Plan for EGD/colonoscopy tomorrow discussed plan with family who agree to the procedures.. Past Medical History Medical History: peptic ulcer disease, other (Pancreatitis) Past Surgical History Past Surgical Hx: cholecystectomy Social History Smoking Status: Never smoker Exam/Review of Systems Vital Signs Vitals Vital Signs Date Time Temp Pulse Resp B/P Pulse Ox O2 Delivery O2 Flow Rate FiO2 09/02/17 15:15 64 18 93/67 100 Non Rebreather 15.0 09/02/17 13:41 100 09/02/17 11:39 98.5 Intake and Output 09/01/17 09/01/17 09/02/17 15:00 23:00 07:00 Intake Total 500 ml 800 ml Output Total 1100 ml Balance 500 ml -300 ml Exam PHYSICAL EXAMINATION: GENERAL: Well developed, well nourished, confused SKIN: No lesions, no stigmata chronic liver disease, no evidence of bleeding diathesis LYMPHATIC: No palpable lymphadenopathy. HEAD: Normocephalic, atraumatic, no tenderness. EYES: Pupils equal reactive to light and accommodation, full extraocular movements, sclera clear, non-icteric, no discharge. EARS/NOSE AND THROAT: Ears normal, nose normal, oropharynx normal, oral membranes well hydrated without lesions. NECK: Supple, CHEST: Inspection within normal limits. CARDIOVASCULAR: Heart: Regular rate RESPIRATORY: Lungs clear to auscultation GASTROINTESTINAL AND LIVER: Abdomen: Soft, non tenderness, non-distended, no hernias, no masses, no organomegaly, no ascites, no guarding, no rebound tenderness, normoactive bowel sounds. Rectal: Deferred. GENITOURINARY: Male genitalia within normal limits. Results Result Diagram: 09/02/17 1424 09/02/17 1424 Results 24 hrs Laboratory Tests Test 09/02/17 07:32 09/02/17 10:40 09/02/17 11:17 09/02/17 12:35 White Blood Count 8.4 10.4 # Red Blood Count 3.08 L 2.96 L Hemoglobin 9.4 L 8.9 L Hematocrit 27.7 L 27.9 L Mean Corpuscular Volume 89.9 94.3 Mean Corpuscular Hemoglobin 30.5 30.1 Mean Corpuscular Hemoglobin Concent 33.9 31.9 L Red Cell Distribution Width 15.2 H 15.3 H Platelet Count 298 310 Mean Platelet Volume 10.3 10.3 Neutrophils % 76.2 73.4 Lymphocytes % 18.4 19.7 Monocytes % 4.9 5.7 Eosinophils % 0.0 0.3 Basophils % 0.0 0.1 Nucleated Red Blood Cells % 0.0 0.0 Neutrophils # 6.4 7.6 H Lymphocytes # 1.5 2.0 Monocytes # 0.4 0.6 Eosinophils # 0.0 0.0 Basophils # 0.0 0.0 Nucleated Red Blood Cells # 0.0 0.0 Sodium Level 130 L Potassium Level 4.7 Chloride Level 101 Carbon Dioxide Level 21 Anion Gap 13 Blood Urea Nitrogen 41 #H Creatinine 1.20 Glucose Level 104 Calcium Level 8.5 Magnesium Level 1.8 Total Bilirubin 0.6 Direct Bilirubin 0.00 Indirect Bilirubin 0.6 Aspartate Amino Transf (AST/SGOT) 30 Alanine Aminotransferase (ALT/SGPT) 42 Alkaline Phosphatase 83 Creatine Kinase 236 H Creatine Kinase Index 1.4 Creatinine Kinase MB (Mass) 3.35 H Troponin I 0.235 *H Total Protein 5.1 L Albumin 2.6 L Globulin 2.50 Albumin/Globulin Ratio 1.04 Bedside Glucose 128 155 Test 09/02/17 14:24 White Blood Count 14.3 #H Red Blood Count 2.03 #L Hemoglobin 6.1 #*L Hematocrit 18.7 #L Mean Corpuscular Volume 92.1 Mean Corpuscular Hemoglobin 30.0 Mean Corpuscular Hemoglobin Concent 32.6 Red Cell Distribution Width 15.3 H Platelet Count 256 Mean Platelet Volume 10.5 H Neutrophils % 80.4 H Lymphocytes % 11.9 L Monocytes % 6.2 Eosinophils % 0.4 Basophils % 0.1 Nucleated Red Blood Cells % 0.0 Neutrophils # 11.5 H Lymphocytes # 1.7 Monocytes # 0.9 Eosinophils # 0.1 Basophils # 0.0 Nucleated Red Blood Cells # 0.0 Prothrombin Time 15.2 H Prothrombin Time Ratio 1.2 INR International Normalized Ratio 1.18 Activated Partial Thromboplast Time 33.9 Sodium Level 131 L Potassium Level 4.6 Chloride Level 108 Carbon Dioxide Level 18 L Anion Gap 10 Blood Urea Nitrogen 46 H Creatinine 1.30 H Glucose Level 116 Calcium Level 7.2 L Phosphorus Level 3.6 Magnesium Level 1.8 Total Bilirubin 0.5 Direct Bilirubin 0.00 Indirect Bilirubin 0.5 Aspartate Amino Transf (AST/SGOT) 24 Alanine Aminotransferase (ALT/SGPT) 41 Alkaline Phosphatase 58 Total Protein 4.3 L Albumin 1.9 L Globulin 2.40 Albumin/Globulin Ratio 0.79 Medications Medications Current Medications Miscellaneous Information (Pending Santyl Order For Wound Care) This patient swan... PRN PRN XX WOUND CARE; Start 08/30/17 at 06:00 Nitroglycerin (Nitroglycerin (Sl Tab) 0.4 Mg) 1 tab Q5M PRN SL CHEST PAIN; Start 08/30/17 at 07:30 Acetaminophen (Tylenol Tab) 650 mg Q6H PRN PO PAIN LEVEL 1-3 OR FEVER Last administered on 09/02/17 10:20; Admin Dose 650 MG; Start 08/30/17 at 07:30 Morphine Sulfate (morphine) 2 mg Q4H PRN IV PAIN LEVEL 7-10; Start 08/30/17 at 07:30 Allopurinol (Zyloprim) 100 mg BID PO Last administered on 09/02/17 10:21; Admin Dose 100 MG; Start 08/30/17 at 09:00 Aspirin (Halfprin) 81 mg DAILY PO Last administered on 09/02/17 10:20; Admin Dose 81 MG; Start 08/30/17 at 09:00 Atorvastatin Calcium (Lipitor) 80 mg DAILY@21 PO Last administered on 20:19; Admin Dose 80 MG; Start 08/30/17 at 21:00 Carvedilol (Coreg) 3.125 mg BID PO Last administered on 09/02/17 10:21; Admin Dose 3.125 MG; Start 08/30/17 at 09:00 Clopidogrel Bisulfate (plaVIX) 75 mg DAILY PO Last administered on 09/02/17 10:21; Admin Dose 75 MG; Start 08/30/17 at 09:00; Status Future Hold Docusate Sodium (Colace) 100 mg Q12H PO Last administered on 09/01/17 09:22; Admin Dose 100 MG; Start 08/30/17 at 07:30 Ferrous Sulfate (Ferrous Sulfate (Ec)) 325 mg DAILY PO Last administered on 10:20; Admin Dose 325 MG; Start 08/30/17 at 09:00 Ergocalciferol (Drisdol) 50,000 unit Tu@09 PO Last administered on 08/31/17 09:35; Admin Dose 50,000 UNIT; Start 08/31/17 at 09:00 Prednisone (Prednisone) 40 mg DAILY PO Last administered on 09/02/17 10:20; Admin Dose 40 MG; Start 08/31/17 at 15:00; Stop 09/05/17 at 14:59 Lactulose 40 gm 40 gm Q2 PO ; Start 09/03/17 at 09:00; Stop 09/03/17 at 11:01 Pantoprazole 80 mg/Sodium Chloride 100 ml @ 10 mls/hr Q10H IV Last administered on 09/02/17 15:37; Admin Dose 10 MLS/HR; Start 09/02/17 at 13:30 Norepinephrine/ Dextrose (Levophed/D5W) 500 ml @ 0 mls/hr TITRATE IV ; Start at 16:00 Copies To: CC: CALVIN BURGESS MD, VICTORIA Sep 02, 2017 17:33
[2017-09-02] MEDS: LACTULOSE 30ML CUP NGT SCH ×3 (20:47→23:36)
[2017-09-02] MEDS: ATORVASTATIN 80 MG TAB PO SCH (20:49)
[2017-09-02 22:37] LABS: HEMATOCRIT 25.5 % (42.0-52.0); HEMOGLOBIN 8.5 g/dl (14.0-18.0)
[2017-09-03] VITALS (76 sets, daily range): BP systolic 91–154; BP diastolic 40–104; PULSE 72–103; RESP 14–27
[2017-09-03] MEDS: LACTULOSE 30ML CUP NGT SCH ×2 (01:49→03:49)
[2017-09-03 05:31] LABS: ABNORMAL IP MESSAGE 1; BASOPHILS % 0.2 % (0.0-2.0); EOSINOPHILS # 0.2 10^3/ul (0.0-0.5); EOSINOPHILS % 1.9 % (0.0-7.0); HEMATOCRIT 18.6 % (42.0-52.0); LYMPHOCYTES # 2.2 10^3/ul (0.8-2.9); LYMPHOCYTES % 18.4 % (15.0-51.0); MEAN CORPUSCULAR HEMOGLOBIN 30.7 pg (29.0-33.0); MEAN CORPUSCULAR HGB CONC 33.3 g/dl (32.0-37.0); MEAN CORPUSCULAR VOLUME 92.1 fl (82.0-101.0); MEAN PLATELET VOLUME 10.7 fl (7.4-10.4); MONOCYTE # 1.1 10^3/ul (0.3-0.9); MONOCYTES % 9.1 % (0.0-11.0); NEUTROPHIL # 8.2 10^3/ul (1.6-7.5); NEUTROPHILS % 69.3 % (39.0-77.0); PLATELET COUNT 181 10^3/UL (140-415); POSITIVE DIFF @See below; RED BLOOD COUNT 2.02 10^6/ul (4.70-6.10); RED CELL DISTRIBUTION WIDTH 15.8 % (11.5-14.5); WHITE BLOOD COUNT 11.8 10^3/ul (4.8-10.8)
[2017-09-03 05:35] LABS: HEMOGLOBIN 6.2 g/dl (14.0-18.0)
[2017-09-03 05:48] LABS: CREATININE 2.06 mg/dl (0.61-1.24); MAGNESIUM 1.7 mg/dl (1.7-2.5); POTASSIUM 5.6 mmol/L (3.5-5.1)
[2017-09-03] MEDS: ASPIRIN (EC) 81 MG TAB PO SCH (09:00)
[2017-09-03] MEDS ORDERED: FUROSEMIDE 20 MG INJ IV ONE (09:30)
[2017-09-03] MEDS: LACTULOSE 30ML CUP PO SCH ×2 (09:50→11:13)
[2017-09-03] MEDS: ALLOPURINOL 100 MG TAB PO SCH ×2 (09:51→21:04)
[2017-09-03] MEDS: FERROUS SULFATE (EC) 325 MG TAB PO SCH (09:51)
[2017-09-03] MEDS: predniSONE 20 MG TAB PO SCH (09:51)
--- NOTE | 2017-09-03 10:20 | RADRPT ---
PROCEDURE: US guidance for PICC line CLINICAL INDICATION: PICC line placement TECHNIQUE: Multiple real-time images were acquired of the patient's arm utilizing a high resolutio n transducer. This was performed by the PICC line nurse for venous access. COMPARISON: None FINDINGS: Ultrasound guidance for PICC line placement. IMPRESSION: Ultrasound guidance for PICC line placement. RPTAT: AA .Nitesh Villa MD, MD Date Time Electronically viewed and signed by .Nitesh Villa MD, on 09/03/2017 10:20 .S/
--- NOTE | 2017-09-03 10:20 | CONS ---
Date/Time of Note Date/Time of Note DATE: 09/03/17 TIME: 10:16 Consult Date/Type/Reason Admit Date/Time Aug 30, 2017 at 01:20 Initial Consult Date 08/31/17 Type of Consultation: card Ordering Provider: LORI MIRANDA MD Subjective cardiology follow up note: S: D/W staff and rhythm was reviewed. d/W physicians. events noted. pt with severe GI bleed and anemia. s/p transfusion. pt with hypotension and transferred to ICU on levophed drip. pt with no chest pain or pressure pt with low urine output. O; General: no acute distress HEENT: NC/AT. pupils are equal. round. s/p NG tube in place. NECK: NO JVD. no stridor. CV: RRR. systolic murmur; no gallop or rubs. PULM: no wheezing or rhonchi. GI: SOFT, NT, ND, no rebound or guarding Extremity: trace B/L LE edema. no clubbing. neuro: awake and alert, OX2. Psych: calm and pleasant rectal: deferred ECHO REVIEWED. ECG REVIEWED. Objective Vital Signs Date Time Temp Pulse Resp B/P Pulse Ox O2 Delivery O2 Flow Rate FiO2 09/03/17 08:45 77 16 134/65 100 Nasal Cannula 2.0 09/03/17 08:00 97.6 09/03/17 04:40 27 Intake and Output 09/02/17 09/02/17 09/03/17 15:00 23:00 07:00 Intake Total 2026.65 ml 784.225 ml 525.762 ml Output Total 0 ml 170 ml 225 ml Balance 2026.65 ml 614.225 ml 300.762 ml Results/Medications Result Diagram: 09/03/17 0515 09/03/17 0515 Results 24 hrs Laboratory Tests Test 09/02/17 10:40 09/02/17 11:17 09/02/17 12:35 09/02/17 14:24 Bedside Glucose 128 155 White Blood Count 10.4 # 14.3 #H Red Blood Count 2.96 L 2.03 #L Hemoglobin 8.9 L 6.1 #*L Hematocrit 27.9 L 18.7 #L Mean Corpuscular Volume 94.3 92.1 Mean Corpuscular Hemoglobin 30.1 30.0 Mean Corpuscular Hemoglobin Concent 31.9 L 32.6 Red Cell Distribution Width 15.3 H 15.3 H Platelet Count 310 256 Mean Platelet Volume 10.3 10.5 H Neutrophils % 73.4 80.4 H Lymphocytes % 19.7 11.9 L Monocytes % 5.7 6.2 Eosinophils % 0.3 0.4 Basophils % 0.1 0.1 Nucleated Red Blood Cells % 0.0 0.0 Neutrophils # 7.6 H 11.5 H Lymphocytes # 2.0 1.7 Monocytes # 0.6 0.9 Eosinophils # 0.0 0.1 Basophils # 0.0 0.0 Nucleated Red Blood Cells # 0.0 0.0 Prothrombin Time 15.2 H Prothrombin Time Ratio 1.2 INR International Normalized Ratio 1.18 Activated Partial Thromboplast Time 33.9 Sodium Level 131 L Potassium Level 4.6 Chloride Level 108 Carbon Dioxide Level 18 L Anion Gap 10 Blood Urea Nitrogen 46 H Creatinine 1.30 H Glucose Level 116 Calcium Level 7.2 L Phosphorus Level 3.6 Magnesium Level 1.8 Total Bilirubin 0.5 Direct Bilirubin 0.00 Indirect Bilirubin 0.5 Aspartate Amino Transf (AST/SGOT) 24 Alanine Aminotransferase (ALT/SGPT) 41 Alkaline Phosphatase 58 Total Protein 4.3 L Albumin 1.9 L Globulin 2.40 Albumin/Globulin Ratio 0.79 Test 09/02/17 22:25 09/03/17 04:58 09/03/17 05:15 Hemoglobin 8.5 #L 6.2 #*L Hematocrit 25.5 #L 18.6 #L Lab Scanned Report BLOOD TRANSFUSION White Blood Count 11.8 H Red Blood Count 2.02 L Mean Corpuscular Volume 92.1 Mean Corpuscular Hemoglobin 30.7 Mean Corpuscular Hemoglobin Concent 33.3 Red Cell Distribution Width 15.8 H Platelet Count 181 # Mean Platelet Volume 10.7 H Neutrophils % 69.3 Lymphocytes % 18.4 Monocytes % 9.1 Eosinophils % 1.9 Basophils % 0.2 Nucleated Red Blood Cells % 0.0 Neutrophils # 8.2 H Lymphocytes # 2.2 Monocytes # 1.1 H Eosinophils # 0.2 Basophils # 0.0 Nucleated Red Blood Cells # 0.0 Sodium Level 136 Potassium Level 5.6 H Chloride Level 112 H Carbon Dioxide Level 17 L Anion Gap 13 Blood Urea Nitrogen 57 H Creatinine 2.06 H Glucose Level 110 Calcium Level 7.0 L Magnesium Level 1.7 Medications Current Medications Miscellaneous Information (Pending Santyl Order For Wound Care) This patient swan... PRN PRN XX WOUND CARE; Start 08/30/17 at 06:00 Nitroglycerin (Nitroglycerin (Sl Tab) 0.4 Mg) 1 tab Q5M PRN SL CHEST PAIN; Start 08/30/17 at 07:30 Acetaminophen (Tylenol Tab) 650 mg Q6H PRN PO PAIN LEVEL 1-3 OR FEVER Last administered on 09/02/17 10:20; Admin Dose 650 MG; Start 08/30/17 at 07:30 Morphine Sulfate (morphine) 2 mg Q4H PRN IV PAIN LEVEL 7-10; Start 08/30/17 at 07:30 Allopurinol (Zyloprim) 100 mg BID PO Last administered on 09/03/17 09:51; Admin Dose 100 MG; Start 08/30/17 at 09:00 Aspirin (Halfprin) 81 mg DAILY PO Last administered on 09/02/17 10:20; Admin Dose 81 MG; Start 08/30/17 at 09:00 Atorvastatin Calcium (Lipitor) 80 mg DAILY@21 PO Last administered on 20:49; Admin Dose 80 MG; Start 08/30/17 at 21:00 Carvedilol (Coreg) 3.125 mg BID PO Last administered on 09/02/17 20:49; Admin Dose 3.125 MG; Start 08/30/17 at 09:00 Clopidogrel Bisulfate (plaVIX) 75 mg DAILY PO Last administered on 09/02/17 10:21; Admin Dose 75 MG; Start 08/30/17 at 09:00; Status Future hold Docusate Sodium (Colace) 100 mg Q12H PO Last administered on 09/01/17 09:22; Admin Dose 100 MG; Start 08/30/17 at 07:30 Ferrous Sulfate (Ferrous Sulfate (Ec)) 325 mg DAILY PO Last administered on 09:51; Admin Dose 325 MG; Start 08/30/17 at 09:00 Ergocalciferol (Drisdol) 50,000 unit Tu@09 PO Last administered on 08/31/17 09:35; Admin Dose 50,000 UNIT; Start 11/28/17 at 09:00 Prednisone (Prednisone) 40 mg DAILY PO Last administered on 09/03/17 09:51; Admin Dose 40 MG; Start 08/31/17 at 15:00; Stop 09/05/17 at 14:59 Lactulose 40 gm 40 gm Q2 PO Last administered on 09/03/17 09:50; Admin Dose 40 GM; Start 09/03/17 at 09:00; Stop 09/03/17 at 11:01 Pantoprazole 80 mg/Sodium Chloride 100 ml @ 10 mls/hr Q10H IV Last administered on 09/02/17 23:37; Admin Dose 10 MLS/HR; Start 09/02/17 at 13:30 Norepinephrine/ Dextrose (Levophed/D5W) 500 ml @ 0 mls/hr TITRATE IV Last administered on 09/03/17 00:34; Admin Dose 18.63 MLS/HR; Start 09/02/17 at 16: 00 Assessment/Plan Chief Complaint/Hosp Course 1. NSTEMI: lexiscan does not show any significant reversible ischemia. 2. CAD: S/ P inferior STEMI 3. S/P PCI RCA 4. HTN 5/ DM 6. HX CHF: STABLE NOW 7. Dementia 8 hypo Mg: corrected now 9. CKD 10. hypovolemic shock 11. severe anemia 12. GI bleed. 13. CV preop evaluation for endoscopy 14. MARCOS Recommendations: replace lytes prn resume plavix , hold asa given his active bleeding. will dec lovenox lexiscan shows no reversible ischemia pt is at moderate to high risk for endoscopy but given his active bleeding, I agree that benefits is more than potential risks. cont ICU care. still on levophed drip for low BP. Hold all BP meds until BP stablizes off of pressors. f/u renal fx. more than 40 min of critical care time was spent in management and treatment of this critically ill pt, excluding any procedures. For his referral. We will continue to follow along with you. HAYDEN WAGNER MD [facility] Problems: HAYDEN WAGNER MD Sep 03, 2017 10:20
[2017-09-03] MEDS ORDERED: MAGNESIUM SULFATE 2 GM/50 ML 50 ML IVPB ONE (10:30)
--- NOTE | 2017-09-03 10:34 | RADRPT ---
PROCEDURE: XR Chest. CLINICAL INDICATION: Check PICC line position. TECHNIQUE: Single frontal view. COMPARISON: 09/02/2017. FINDINGS: There is a left arm PICC line with the tip in the lower superior vena cava. The nasogastric tube ti p is in the stomach. There is mild left basilar atelectasis. The lungs are otherwise clear. The heart size is normal. There is calcification in the aorta consistent with atherosclerosis. There is no pleural effusion. There is no pneumothorax. IMPRESSION: 1. Left arm PICC line tip in satisfactory position. 2. Nasogastric tube tip in the stomach. 3. Mild left basilar atelectasis. 4. Atherosclerosis. RPTAT: QQ .Elliott Cao MD, MD Date Time Electronically viewed and signed by .Elliott Cao MD, on 09/03/2017 10:34 .R/
[2017-09-03] MEDS: BALSAM PERU/CASTOR OIL 60 GM TUBE TOP SCH (11:15)
[2017-09-03] MEDS: PANTOPRAZOLE IV 80 MG in SOD CHLORIDE 0.9% 100 ML IV SCH ×2 (11:15→21:05)
[2017-09-03 11:59] LABS: HEMATOCRIT 27.1 % (42.0-52.0); HEMOGLOBIN 9.5 g/dl (14.0-18.0)
--- NOTE | 2017-09-03 12:47 | PN ---
Date/Time of Note Date/Time of Note DATE: 09/03/17 TIME: 12:01 Assessment/Plan VTE Prophylaxis VTE Prophylaxis Intervention: SCD's Lines/Catheters IV Catheter Type (from Nrsg): PICC Line Central line still needed: Yes Urinary Cath still in place: Yes Reason Cath still needed: other (indicate) (strict Is/Os) Assessment/Plan Assessment/Plan 87 yo M with multiple hospitalizations in recent months, initially had gallstone pancreatitis, then had STEMI now here with generalized weakness. Now with overt evidence of hypovolemic shock 2/2 GI bleed. Hgb trends indicative of continued bleeding. #sudden onset hypovolemic shock 2/2 GIB: new onset 09.02. d/dx includes diverticular etio v complication of pt's previous duodenal ulcer transfuse blood to goal hgb >7 empiric PPI drip. No known hx of EVs so no compelling indication for octreotide volume and levophed resuscitation GI aware, endoscopies pending #MARCOS: likely prerenal from hypotension. cont resuscitation #gout flare: prednisone burst given CKD cont home allopurinol #elevated trop: cardiology following, stress test unremarkable holding BP meds given hypotension, asa given bleeding, cont plavix given stent #low albumin: repeat UA without proteinuria RD eval for ?poor PO? #subclinical hypothyroid: outpatient follow up #compression deformity: vit D low 6 days ago. started ergo appears pt seen by neurosurg during recent admit but note not yet available #hypotonic hyponatremia: RESOVLED Cont plavix given recent cardiac stent, HOLD LOVENOX critical care time; 30 minutes Subjective 24 Hr Interval Summary Free Text/Dictation Hgb bumped then fell again after transfusion Exam/Review of Systems Vital Signs Vitals Vital Signs Date Time Temp Pulse Resp B/P Pulse Ox O2 Delivery O2 Flow Rate FiO2 09/03/17 08:45 77 16 134/65 100 Nasal Cannula 2.0 09/03/17 08:00 97.6 09/03/17 04:40 27 Intake and Output 09/02/17 09/02/17 09/03/17 15:00 23:00 07:00 Intake Total 2026.65 ml 784.225 ml 525.762 ml Output Total 0 ml 170 ml 225 ml Balance 2026.65 ml 614.225 ml 300.762 ml Exam nad sitting up in bed no mrg abd soft no rashes hgb 6s, Cr now 2 Results Result Diagram: 09/03/17 0515 09/03/17 0515 Results 24 hrs Laboratory Tests Test 09/02/17 12:35 09/02/17 14:24 09/02/17 22:25 09/03/17 04:58 Bedside Glucose 155 White Blood Count 14.3 #H Red Blood Count 2.03 #L Hemoglobin 6.1 #*L 8.5 #L Hematocrit 18.7 #L 25.5 #L Mean Corpuscular Volume 92.1 Mean Corpuscular Hemoglobin 30.0 Mean Corpuscular Hemoglobin Concent 32.6 Red Cell Distribution Width 15.3 H Platelet Count 256 Mean Platelet Volume 10.5 H Neutrophils % 80.4 H Lymphocytes % 11.9 L Monocytes % 6.2 Eosinophils % 0.4 Basophils % 0.1 Nucleated Red Blood Cells % 0.0 Neutrophils # 11.5 H Lymphocytes # 1.7 Monocytes # 0.9 Eosinophils # 0.1 Basophils # 0.0 Nucleated Red Blood Cells # 0.0 Prothrombin Time 15.2 H Prothrombin Time Ratio 1.2 INR International Normalized Ratio 1.18 Activated Partial Thromboplast Time 33.9 Sodium Level 131 L Potassium Level 4.6 Chloride Level 108 Carbon Dioxide Level 18 L Anion Gap 10 Blood Urea Nitrogen 46 H Creatinine 1.30 H Glucose Level 116 Calcium Level 7.2 L Phosphorus Level 3.6 Magnesium Level 1.8 Total Bilirubin 0.5 Direct Bilirubin 0.00 Indirect Bilirubin 0.5 Aspartate Amino Transf (AST/SGOT) 24 Alanine Aminotransferase (ALT/SGPT) 41 Alkaline Phosphatase 58 Total Protein 4.3 L Albumin 1.9 L Globulin 2.40 Albumin/Globulin Ratio 0.79 Lab Scanned Report BLOOD TRANSFUSION Test 09/03/17 05:15 09/03/17 11:11 White Blood Count 11.8 H Red Blood Count 2.02 L Hemoglobin 6.2 #*L 9.5 #L Hematocrit 18.6 #L 27.1 #L Mean Corpuscular Volume 92.1 Mean Corpuscular Hemoglobin 30.7 Mean Corpuscular Hemoglobin Concent 33.3 Red Cell Distribution Width 15.8 H Platelet Count 181 # Mean Platelet Volume 10.7 H Neutrophils % 69.3 Lymphocytes % 18.4 Monocytes % 9.1 Eosinophils % 1.9 Basophils % 0.2 Nucleated Red Blood Cells % 0.0 Neutrophils # 8.2 H Lymphocytes # 2.2 Monocytes # 1.1 H Eosinophils # 0.2 Basophils # 0.0 Nucleated Red Blood Cells # 0.0 Sodium Level 136 Potassium Level 5.6 H Chloride Level 112 H Carbon Dioxide Level 17 L Anion Gap 13 Blood Urea Nitrogen 57 H Creatinine 2.06 H Glucose Level 110 Calcium Level 7.0 L Magnesium Level 1.7 Medications Medications Current Medications Miscellaneous Information (Pending Santyl Order For Wound Care) This patient swan... PRN PRN XX WOUND CARE; Start 08/30/17 at 06:00 Nitroglycerin (Nitroglycerin (Sl Tab) 0.4 Mg) 1 tab Q5M PRN SL CHEST PAIN; Start 08/30/17 at 07:30 Acetaminophen (Tylenol Tab) 650 mg Q6H PRN PO PAIN LEVEL 1-3 OR FEVER Last administered on 09/02/17 10:20; Admin Dose 650 MG; Start 08/30/17 at 07:30 Morphine Sulfate (morphine) 2 mg Q4H PRN IV PAIN LEVEL 7-10; Start 08/30/17 at 07:30 Allopurinol (Zyloprim) 100 mg BID PO Last administered on 09/03/17 09:51; Admin Dose 100 MG; Start 08/30/17 at 09:00 Aspirin (Halfprin) 81 mg DAILY PO Last administered on 09/02/17 10:20; Admin Dose 81 MG; Start 08/30/17 at 09:00; Status Future Hold Atorvastatin Calcium (Lipitor) 80 mg DAILY@21 PO Last administered on 20:49; Admin Dose 80 MG; Start 08/30/17 at 21:00 Carvedilol (Coreg) 3.125 mg BID PO Last administered on 09/02/17 20:49; Admin Dose 3.125 MG; Start 08/30/17 at 09:00 Clopidogrel Bisulfate (plaVIX) 75 mg DAILY PO Last administered on 09/02/17 10:21; Admin Dose 75 MG; Start 08/30/17 at 09:00; Status Future hold Docusate Sodium (Colace) 100 mg Q12H PO Last administered on 09/01/17 09:22; Admin Dose 100 MG; Start 08/30/17 at 07:30 Ferrous Sulfate (Ferrous Sulfate (Ec)) 325 mg DAILY PO Last administered on 09:51; Admin Dose 325 MG; Start 08/30/17 at 09:00 Ergocalciferol (Drisdol) 50,000 unit Tu@09 PO Last administered on 08/31/17 09:35; Admin Dose 50,000 UNIT; Start 08/31/17 at 09:00 Prednisone 40 mg 40 mg DAILY PO Last administered on 09/03/17 09:51; Admin Dose 40 MG; Start 08/31/17 at 15:00; Stop 09/05/17 at 14:59 Pantoprazole 80 mg/Sodium Chloride 100 ml @ 10 mls/hr Q10H IV Last administered on 09/03/17 11:15; Admin Dose 10 MLS/HR; Start 09/02/17 at 13:30 Norepinephrine 16 mg/Dextrose 500 ml @ 0 mls/hr TITRATE IV Last administered on 09/03/17 00:34; Admin Dose 18.63 MLS/HR; Start 09/02/17 at 16:00 Magnesium Sulfate (Magnesium Sulfate 2 Gm/50 ml) 50 ml @ 25 mls/hr ONCE ONCE IVPB Last administered on 09/03/17 11:14; Admin Dose 25 MLS/HR; Start at 10:30; Stop 09/03/17 at 12:29 IV Flush (NS 10 ml) 10 ml PRN PRN IV IV PROTOCOL; Start 09/03/17 at 11:30 LORI MIRANDA MD Sep 03, 2017 12:47
[2017-09-03] MEDS ORDERED: SOD CHLORIDE 0.9% 100 ML ONE (13:06)
[2017-09-03 18:13] LABS: HEMATOCRIT 25.7 % (42.0-52.0)
--- NOTE | 2017-09-03 18:24 | OPPN ---
Date/Time of Note Date/Time of Note DATE: 09/03/17 TIME: 18:21 Proc Note GI Procedure Date 09/03/17 Indication: other (GI bleeding) Pre-procedure Diagnosis GI bleeding Post-procedure Diagnosis Impression: 2 cm active duodenal ulcer with a large firmly adherent clot No therapeutic intervention is the base of the clot is at least 10 mm wide Otherwise normal EGD Plan: Protonix and octreotide drips Liquid Carafate DC aspirin, continue Plavix Close monitor transfuse for hemoglobin less than 8.5 Clear liquid diet. . Procedure Performed: Endoscopy Surgeon CALVIN THAKUR MD See signature line Closing Coordinator none Anesthesia Type: MAC Anesthesiologist: STEPHON BEEBE MD Tourniquet Time none EBL none Transfusion required none Biopsy 1: None Grafts/Implants none Tubes/Drains none Complication(s) none Disposition: other (ICU) Procedure Description After informed consent, with the patient/relatives understanding the procedure, its indications, potential risks and complications, including but not limited to : allergic reaction, bleeding, perforation or infection, and after all pertinent questions were answered to the patients satisfaction, the patient/ relatives signed witnessed informed consent. Following this, premedication was administered slowly IV push under careful cardiovascular and respiratory monitoring with pulse oximetry, automatic blood pressure, and car pusher. Once the sedative effect was achieved the patient was place in the left lateral decubitus, the panendoscope was introduced and advanced under visual control. Careful examination of the upper gastrointestinal tract, both on insertion as well as withdrawal of the instrument disclosing the following findings: ESOPHAGUS: the mucosa of the entire esophagus was carefully examined and showed the following findings: the mucosa appears within normal limits. There is no evidence of esophagitis, varices, neoplasm, or stricture. No Hiatal Hernia identified. STOMACH: Upon entrance to the stomach air was insufflated, the gastric warren distended normally. The mucosa of the fundus, body and antrum of the stomach was carefully examined both head-on and on retroflexion, and showed the following findings: the mucosa appears within normal limits with no abnormalities. There is no evidence of gastritis, ulcers or neoplasm. PYLORUS: The pylorus was carefully examined and showed the following findings: the pylorus appears patent and within normal limits, with no evidence of gastric outlet obstruction. DUODENUM: The duodenal mucosa was carefully examined in the duodenal bulb as well as the second portion of the duodenum and showed the following findings: There is a 2 cm duodenal ulcer with a fairly adherent clot measuring at least 10 mm in width. Therapeutic intervention was contemplated but elected not to perform due to the broad-based of the clot and the risk of significant bleeding. The lesion appears to be stable upon extensive lavage. Otherwise the mucosa appears unremarkable with no evidence of duodenitis or neoplasm. Copies To: CC: CALVIN THAKUR MD, MORDO MD Sep 03, 2017 18:24
[2017-09-03] MEDS ORDERED: PANTOPRAZOLE IV 80 MG in SOD CHLORIDE 0.9% 100 ML IV SCH (18:30)
[2017-09-03] MEDS: SUCRALFATE (100 MG/ML) 10ML CUP PO SCH ×2 (18:50→21:04)
[2017-09-03] MEDS: CLOPIDOGREL 75 MG TAB PO SCH (18:51)
[2017-09-03] MEDS: OCTREOTIDE 1 MG in SOD CHLORIDE 0.9% 95 ML IV SCH (19:23)
[2017-09-03] MEDS: DOCUSATE SODIUM 100 MG CAP PO SCH (19:30)
[2017-09-03] MEDS ORDERED: PROPOFOL 20 ML ONE (19:50)
[2017-09-03] MEDS: ATORVASTATIN 80 MG TAB PO SCH (21:04)
[2017-09-04] VITALS (39 sets, daily range): BP systolic 75–148; BP diastolic 40–85; PULSE 78–102; RESP 13–26
[2017-09-04 00:31] LABS: HEMATOCRIT 23.4 % (42.0-52.0); HEMOGLOBIN 8.1 g/dl (14.0-18.0)
[2017-09-04 05:16] LABS: HEMATOCRIT 21.7 % (42.0-52.0); HEMOGLOBIN 7.7 g/dl (14.0-18.0)
[2017-09-04 06:00] LABS: CALCIUM 7.9 mg/dl (8.4-10.2); CREATININE 2.14 mg/dl (0.61-1.24); MAGNESIUM 2.3 mg/dl (1.7-2.5); POTASSIUM 4.9 mmol/L (3.5-5.1)
[2017-09-04] MEDS: DOCUSATE SODIUM 100 MG CAP PO SCH ×2 (07:30→19:30)
[2017-09-04] MEDS: SUCRALFATE (100 MG/ML) 10ML CUP PO SCH ×4 (09:13→20:47)
[2017-09-04] MEDS: FERROUS SULFATE (EC) 325 MG TAB PO SCH (09:14)
[2017-09-04] MEDS: BALSAM PERU/CASTOR OIL 60 GM TUBE TOP SCH (09:14)
[2017-09-04] MEDS: ALLOPURINOL 100 MG TAB PO SCH ×2 (09:14→20:47)
[2017-09-04] MEDS: predniSONE 20 MG TAB PO SCH (09:14)
[2017-09-04] MEDS: PANTOPRAZOLE IV 80 MG in SOD CHLORIDE 0.9% 100 ML IV SCH ×3 (09:14→18:52)
[2017-09-04] MEDS: CLOPIDOGREL 75 MG TAB PO SCH (09:29)
--- NOTE | 2017-09-04 09:48 | CONS ---
Date/Time of Note Date/Time of Note DATE: 09/04/17 TIME: 09:43 Consult Date/Type/Reason Admit Date/Time Aug 30, 2017 at 01:20 Initial Consult Date 08/31/17 Type of Consultation: card Ordering Provider: LORI MIRANDA MD Subjective cardiology follow up note: S: D/W staff and rhythm was reviewed. d/W physicians including Dr Burgess dw/ daughter at bedside events noted. pt s/p EGD on 09/03/17 which shows significant ulcer. pt with no chest pain or pressure he denies any more bleeding now. O; General: no acute distress HEENT: NC/AT. pupils are equal. round. s/p NG tube in place. NECK: NO JVD. no stridor. CV: RRR. systolic murmur; no gallop or rubs. PULM: no wheezing or rhonchi. GI: SOFT, NT, ND, no rebound or guarding Extremity: trace B/L LE edema. no clubbing. neuro: awake and alert, OX2. Psych: calm and pleasant rectal: deferred ECHO REVIEWED. ECG REVIEWED. Objective Vital Signs Date Time Temp Pulse Resp B/P Pulse Ox O2 Delivery O2 Flow Rate FiO2 09/04/17 08:00 Nasal Cannula 2.0 09/04/17 08:00 91 09/04/17 05:52 92 21 09/04/17 05:15 19 87/42 09/04/17 04:00 97.7 Intake and Output 09/03/17 09/03/17 09/04/17 14:59 22:59 06:59 Intake Total 759.286 ml 585 ml 120 ml Output Total 625 ml 800 ml 75 ml Balance 134.286 ml -215 ml 45 ml Results/Medications Result Diagram: 09/04/17 0441 09/04/17 0441 Results 24 hrs Laboratory Tests Test 09/03/17 11:11 09/03/17 17:53 09/03/17 23:45 09/04/17 04:41 Hemoglobin 9.5 #L 9.0 L 8.1 L 7.7 L Hematocrit 27.1 #L 25.7 L 23.4 L 21.7 L Sodium Level 139 Potassium Level 4.9 Chloride Level 116 H Carbon Dioxide Level 16 L Anion Gap 12 Blood Urea Nitrogen 49 H Creatinine 2.14 H Glucose Level 134 Calcium Level 7.9 L Magnesium Level 2.3 Test 09/04/17 05:17 Lab Scanned Report BLOOD TRANSFUSION Medications Current Medications Miscellaneous Information (Pending Santyl Order For Wound Care) This patient swan... PRN PRN XX WOUND CARE; Start 08/30/17 at 06:00 Nitroglycerin (Nitroglycerin (Sl Tab) 0.4 Mg) 1 tab Q5M PRN SL CHEST PAIN; Start 08/30/17 at 07:30 Acetaminophen (Tylenol Tab) 650 mg Q6H PRN PO PAIN LEVEL 1-3 OR FEVER Last administered on 09/02/17 10:20; Admin Dose 650 MG; Start 08/30/17 at 07:30 Morphine Sulfate (morphine) 2 mg Q4H PRN IV PAIN LEVEL 7-10; Start 08/30/17 at 07:30 Allopurinol (Zyloprim) 100 mg BID PO Last administered on 09/04/17 09:14; Admin Dose 100 MG; Start 08/30/17 at 09:00 Aspirin (Halfprin) 81 mg DAILY PO Last administered on 09/02/17 10:20; Admin Dose 81 MG; Start 08/30/17 at 09:00; Status Future Hold Atorvastatin Calcium (Lipitor) 80 mg DAILY@21 PO Last administered on 21:04; Admin Dose 80 MG; Start 08/30/17 at 21:00 Carvedilol (Coreg) 3.125 mg BID PO Last administered on 09/02/17 20:49; Admin Dose 3.125 MG; Start 08/30/17 at 09:00; Status Future Hold Docusate Sodium (Colace) 100 mg Q12H PO Last administered on 09/01/17 09:22; Admin Dose 100 MG; Start 08/30/17 at 07:30 Ferrous Sulfate (Ferrous Sulfate (Ec)) 325 mg DAILY PO Last administered on 09:14; Admin Dose 325 MG; Start 08/30/17 at 09:00 Ergocalciferol (Drisdol) 50,000 unit Tu@09 PO Last administered on 08/31/17 09:35; Admin Dose 50,000 UNIT; Start 08/31/17 at 09:00 Prednisone 40 mg 40 mg DAILY PO Last administered on 09/04/17 09:14; Admin Dose 40 MG; Start 08/31/17 at 15:00; Stop 09/05/17 at 14:59 Pantoprazole 80 mg/Sodium Chloride 100 ml @ 10 mls/hr Q10H IV Last administered on 09/04/17 09:14; Admin Dose 10 MLS/HR; Start 09/02/17 at 13:30 Norepinephrine/ Dextrose (Levophed/D5W) 500 ml @ 0 mls/hr TITRATE IV Last administered on 09/03/17 00:34; Admin Dose 18.63 MLS/HR; Start 09/02/17 at 16: 00 IV Flush 10 ml 10 ml PRN PRN IV IV PROTOCOL; Start 09/03/17 at 11:30 Octreotide Acetate/Sodium Chloride (Sandostatin/NS) 100 ml @ 5 mls/hr Q20H IV Last administered on 09/03/17 19:23; Admin Dose 5 MLS/HR; Start 09/03/17 at 19: 30 Sucralfate (Carafate Susp) 1 gm QID PO Last administered on 09/04/17 09:13; Admin Dose 1 GM; Start 09/03/17 at 18:30 Clopidogrel Bisulfate (plaVIX) 75 mg DAILY PO Last administered on 09/04/17 09 :29; Admin Dose 75 MG; Start 09/03/17 at 18:45 Assessment/Plan Chief Complaint/Hosp Course 1. NSTEMI: lexiscan does not show any significant reversible ischemia. 2. CAD: S/ P inferior STEMI, S/P PCI RCA 3. upper GI bleed/ PUD 4. HTN 5/ DM 6. HX CHF: STABLE NOW 7. Dementia 8 hypo Mg: corrected now 9. CKD 10. hypovolemic shock 11. severe anemia due to GI bleed 12. preop evaluation for endoscopy 13. MARCOS: probably ATN due to hypotension and shock Recommendations: replace lytes prn cont plavix given recent STEMI. PCI But I will hold asa for now, given his active bleeding/ significant PUD/ Bleeding risk for now. off of lovenox lexiscan shows no reversible ischemia cont ICU care. still on levophed drip for low BP. Hold all BP meds until BP stablizes off of pressors. resume betablocker once stable BP. f/u renal fx. more than 37 min of critical care time was spent in management and treatment of this critically ill pt, excluding any procedures. For his referral. We will continue to follow along with you. HAYDEN WAGNER MD [facility] Problems: HAYDEN WAGNER MD Sep 04, 2017 09:48
--- NOTE | 2017-09-04 11:26 | PN ---
Date/Time of Note Date/Time of Note DATE: 09/04/17 TIME: 11:07 Assessment/Plan VTE Prophylaxis VTE Prophylaxis Intervention: SCD's Lines/Catheters IV Catheter Type (from Nrs): PICC Line Central line still needed: Yes (Medications and blood transfusions) Urinary Cath still in place: Yes (Monitoring intake and output) Reason Cath still needed: other (indicate) (Intake and output monitoring) Assessment/Plan Chief Complaint/Hosp Course Assessment: Hematochezia S/P EGD 2 cm active duodenal ulcer with a large firmly adherent clot No therapeutic intervention is the base of the clot is at least 10 mm wide Otherwise normal EGD Anemia NSTEMI CAD Recent PCI RCA HTN DM HX CHF Dementia Plan: Continue on Protonix and octreotide drips Liquid Carafate Continue Plavix Close monitor transfuse for hemoglobin less than 8.5 Clear liquid diet. Patient denies abdominal pain. Stools are yellow no hematochezia. Currently being transfused for hemoglobin 7.5. Will continue close monitoring of H&H every 6 hours. As of now patient will remain in ICU. Plan of care discussed with nursing staff and patient's daughter. Labs reviewed. Exam is done in collaboration with Dr. Burgess . PHYSICAL EXAMINATION: GENERAL: Well developed, well nourished, alert & oriented x 3, in no acute distress SKIN: No lesions, no stigmata chronic liver disease, no evidence of bleeding diathesis LYMPHATIC: No palpable lymphadenopathy. HEAD: Normocephalic, atraumatic, no tenderness. EYES: Pupils equal reactive to light and accommodation, full extraocular movements, sclera clear, non-icteric, no discharge. EARS/NOSE AND THROAT: Ears normal, nose normal, oropharynx normal, oral membranes well hydrated without lesions. NECK: Supple, no masses, thyroid normal, JVP within normal limits, carotids normal without bruits. CHEST: Inspection within normal limits. CARDIOVASCULAR: Heart: Regular rate and rhythm, no murmurs, gallops or rubs. Peripheral pulses present within normal limits, no cyanosis, clubbing or edemas. No pulsatile abdominal mass RESPIRATORY: Lungs clear to auscultation and percussion, no wheezing, no rubs GASTROINTESTINAL AND LIVER: Abdomen: Soft, non tenderness, non-distended, no hernias, no masses, no organomegaly, no ascites, no guarding, no rebound tenderness, normoactive bowel sounds. Rectal: Deferred. [no perianal disease, no masses, stool normal, occult blood negative.] GENITOURINARY: [Male genitalia within normal limits. EXTREMITIES: No cyanosis, clubbing or edema. Problems: Exam/Review of Systems Vital Signs Vitals Vital Signs Date Time Temp Pulse Resp B/P Pulse Ox O2 Delivery O2 Flow Rate FiO2 09/04/17 10:00 85 19 108/58 97 Nasal Cannula 2.0 09/04/17 05:52 21 09/04/17 04:00 97.7 Intake and Output 09/03/17 09/03/17 09/04/17 15:00 23:00 07:00 Intake Total 574.318 ml 590 ml 105 ml Output Total 775 ml 700 ml Balance -200.682 ml -110 ml 105 ml Results Result Diagram: 09/04/17 0441 09/04/17 044 Results 24 hrs Laboratory Tests Test 09/03/17 11:11 09/03/17 17:53 09/03/17 23:45 09/04/17 04:41 Hemoglobin 9.5 #L 9.0 L 8.1 L 7.7 L Hematocrit 27.1 #L 25.7 L 23.4 L 21.7 L Sodium Level 139 Potassium Level 4.9 Chloride Level 116 H Carbon Dioxide Level 16 L Anion Gap 12 Blood Urea Nitrogen 49 H Creatinine 2.14 H Glucose Level 134 Calcium Level 7.9 L Magnesium Level 2.3 Test 09/04/17 05:17 Lab Scanned Report BLOOD TRANSFUSION Medications Medications Current Medications Miscellaneous Information (Pending Santyl Order For Wound Care) This patient swan... PRN PRN XX WOUND CARE; Start 08/30/17 at 06:00 Nitroglycerin (Nitroglycerin (Sl Tab) 0.4 Mg) 1 tab Q5M PRN SL CHEST PAIN; Start 08/30/17 at 07:30 Acetaminophen (Tylenol Tab) 650 mg Q6H PRN PO PAIN LEVEL 1-3 OR FEVER Last administered on 09/02/17 10:20; Admin Dose 650 MG; Start 08/30/17 at 07:30 Morphine Sulfate (morphine) 2 mg Q4H PRN IV PAIN LEVEL 7-10; Start 08/30/17 at 07:30 Allopurinol (Zyloprim) 100 mg BID PO Last administered on 09/04/17 09:14; Admin Dose 100 MG; Start 08/30/17 at 09:00 Aspirin (Halfprin) 81 mg DAILY PO Last administered on 09/02/17 10:20; Admin Dose 81 MG; Start 08/30/17 at 09:00; Status Future Hold Atorvastatin Calcium (Lipitor) 80 mg DAILY@21 PO Last administered on 21:04; Admin Dose 80 MG; Start 08/30/17 at 21:00 Carvedilol (Coreg) 3.125 mg BID PO Last administered on 09/02/17 20:49; Admin Dose 3.125 MG; Start 08/30/17 at 09:00; Status Future Hold Docusate Sodium (Colace) 100 mg Q12H PO Last administered on 09/01/17 09:22; Admin Dose 100 MG; Start 08/30/17 at 07:30 Ferrous Sulfate (Ferrous Sulfate (Ec)) 325 mg DAILY PO Last administered on 09:14; Admin Dose 325 MG; Start 08/30/17 at 09:00 Ergocalciferol (Drisdol) 50,000 unit Tu@09 PO Last administered on 08/31/17 09:35; Admin Dose 50,000 UNIT; Start 08/31/17 at 09:00 Prednisone 40 mg 40 mg DAILY PO Last administered on 09/04/17 09:14; Admin Dose 40 MG; Start 08/31/17 at 15:00; Stop 09/05/17 at 14:59 Pantoprazole 80 mg/Sodium Chloride 100 ml @ 10 mls/hr Q10H IV Last administered on 09/04/17 09:14; Admin Dose 10 MLS/HR; Start 09/02/17 at 13:30 Norepinephrine/ Dextrose (Levophed/D5W) 500 ml @ 0 mls/hr TITRATE IV Last administered on 09/03/17 00:34; Admin Dose 18.63 MLS/HR; Start 09/02/17 at 16: 00 IV Flush 10 ml 10 ml PRN PRN IV IV PROTOCOL; Start 09/03/17 at 11:30 Octreotide Acetate/Sodium Chloride (Sandostatin/NS) 100 ml @ 5 mls/hr Q20H IV Last administered on 09/03/17 19:23; Admin Dose 5 MLS/HR; Start 09/03/17 at 19: 30 Sucralfate (Carafate Susp) 1 gm QID PO Last administered on 09/04/17 09:13; Admin Dose 1 GM; Start 09/03/17 at 18:30 Clopidogrel Bisulfate (plaVIX) 75 mg DAILY PO Last administered on 09/04/17 09 :29; Admin Dose 75 MG; Start 09/03/17 at 18:45 BARBRA YAP NP Sep 04, 2017 11:22
[2017-09-04] MEDS: OCTREOTIDE 1 MG in SOD CHLORIDE 0.9% 95 ML IV SCH ×2 (11:54→14:40)
--- NOTE | 2017-09-04 12:24 | PN ---
Date/Time of Note Date/Time of Note DATE: 09/04/17 TIME: 12:23 Assessment/Plan VTE Prophylaxis VTE Prophylaxis Intervention: SCD's Lines/Catheters IV Catheter Type (from Nrsg): PICC Line Central line still needed: No Urinary Cath still in place: Yes (Monitoring intake and output) Reason Cath still needed: other (indicate) (will dc) Assessment/Plan Assessment/Plan 87 yo M with multiple hospitalizations in recent months, initially had gallstone pancreatitis, then had STEMI now here with generalized weakness. Now with overt evidence of hypovolemic shock 2/2 GI bleed. EGD with large duodenal ulcer with an adherent clot which #sudden onset hypovolemic shock 2/2 GIB from large duodenal ulcer transfuse blood to goal hgb >7 somatostatin and PPI as per PI volume and levophed resuscitation #MARCOS: likely prerenal from hypotension. cont resuscitation #gout flare: prednisone burst given CKD-->this ends tomorrow cont home allopurinol #elevated trop: cardiology following, stress test unremarkable holding BP meds given hypotension, asa given bleeding, cont plavix given stent #low albumin: repeat UA without proteinuria RD eval for ?poor PO? #subclinical hypothyroid: outpatient follow up #compression deformity: vit D low 6 days ago. started ergo appears pt seen by neurosurg during recent admit but note not yet available #hypotonic hyponatremia: RESOVLED Cont plavix given recent cardiac stent, HOLD LOVENOX critical care time; 30 minutes Subjective 24 Hr Interval Summary Free Text/Dictation Hgbs stable overnight, O2 weaned down a lot Exam/Review of Systems Vital Signs Vitals Vital Signs Date Time Temp Pulse Resp B/P Pulse Ox O2 Delivery O2 Flow Rate FiO2 09/04/17 10:00 85 19 108/58 97 Nasal Cannula 2.0 09/04/17 05:52 21 09/04/17 04:00 97.7 Intake and Output 09/03/17 09/03/17 09/04/17 14:59 22:59 06:59 Intake Total 759.286 ml 585 ml 120 ml Output Total 625 ml 800 ml 75 ml Balance 134.286 ml -215 ml 45 ml Exam nad no mrg lungs clear abd soft no rashes hgbs noted Results Result Diagram: 09/04/1744009/04/171 Results 24 hrs Laboratory Tests Test 09/03/17 17:53 09/03/17 23:45 09/04/17 04:41 09/04/17 05:17 Hemoglobin 9.0 L 8.1 L 7.7 L Hematocrit 25.7 L 23.4 L 21.7 L Sodium Level 139 Potassium Level 4.9 Chloride Level 116 H Carbon Dioxide Level 16 L Anion Gap 12 Blood Urea Nitrogen 49 H Creatinine 2.14 H Glucose Level 134 Calcium Level 7.9 L Magnesium Level 2.3 Lab Scanned Report BLOOD TRANSFUSION Medications Medications Current Medications Miscellaneous Information (Pending Santyl Order For Wound Care) This patient swan... PRN PRN XX WOUND CARE; Start 08/30/17 at 06:00 Nitroglycerin (Nitroglycerin (Sl Tab) 0.4 Mg) 1 tab Q5M PRN SL CHEST PAIN; Start 08/30/17 at 07:30 Acetaminophen (Tylenol Tab) 650 mg Q6H PRN PO PAIN LEVEL 1-3 OR FEVER Last administered on 09/02/17 10:20; Admin Dose 650 MG; Start 08/30/17 at 07:30 Morphine Sulfate (morphine) 2 mg Q4H PRN IV PAIN LEVEL 7-10; Start 08/30/17 at 07:30 Allopurinol (Zyloprim) 100 mg BID PO Last administered on 09/04/17 09:14; Admin Dose 100 MG; Start 08/30/17 at 09:00 Aspirin (Halfprin) 81 mg DAILY PO Last administered on 09/02/17 10:20; Admin Dose 81 MG; Start 08/30/17 at 09:00; Status Future Hold Atorvastatin Calcium (Lipitor) 80 mg DAILY@21 PO Last administered on 21:04; Admin Dose 80 MG; Start 08/30/17 at 21:00 Carvedilol (Coreg) 3.125 mg BID PO Last administered on 09/02/17 20:49; Admin Dose 3.125 MG; Start 08/30/17 at 09:00; Status Future Hold Docusate Sodium (Colace) 100 mg Q12H PO Last administered on 09/01/17 09:22; Admin Dose 100 MG; Start 08/30/17 at 07:30 Ferrous Sulfate (Ferrous Sulfate (Ec)) 325 mg DAILY PO Last administered on 09:14; Admin Dose 325 MG; Start 08/30/17 at 09:00 Ergocalciferol (Drisdol) 50,000 unit Tu@09 PO Last administered on 08/31/17 09:35; Admin Dose 50,000 UNIT; Start 08/31/17 at 09:00 Prednisone 40 mg 40 mg DAILY PO Last administered on 09/04/17 09:14; Admin Dose 40 MG; Start 08/31/17 at 15:00; Stop 09/05/17 at 14:59 Pantoprazole 80 mg/Sodium Chloride 100 ml @ 10 mls/hr Q10H IV Last administered on 09/04/17 09:14; Admin Dose 10 MLS/HR; Start 09/02/17 at 13:30 Norepinephrine/ Dextrose (Levophed/D5W) 500 ml @ 0 mls/hr TITRATE IV Last administered on 09/03/17 00:34; Admin Dose 18.63 MLS/HR; Start 09/02/17 at 16: 00 IV Flush 10 ml 10 ml PRN PRN IV IV PROTOCOL; Start 09/03/17 at 11:30 Octreotide Acetate/Sodium Chloride (Sandostatin/NS) 100 ml @ 5 mls/hr Q20H IV Last administered on 09/04/17 11:54; Admin Dose 5 MLS/HR; Start 09/03/17 at 19: 30 Sucralfate (Carafate Susp) 1 gm QID PO Last administered on 09/04/17 09:13; Admin Dose 1 GM; Start 09/03/17 at 18:30 Clopidogrel Bisulfate (plaVIX) 75 mg DAILY PO Last administered on 09/04/17 09 :29; Admin Dose 75 MG; Start 09/03/17 at 18:45 LORI MIRANDA MD Sep 04, 2017 12:24
[2017-09-04] MEDS: SOD CHLORIDE 0.9% 1,000 ML IV SCH ×2 (13:17→21:29)
[2017-09-04 13:45] LABS: HEMATOCRIT 28.3 % (42.0-52.0); HEMOGLOBIN 9.9 g/dl (14.0-18.0)
[2017-09-04 19:20] LABS: HEMATOCRIT 26.2 % (42.0-52.0); HEMOGLOBIN 9.1 g/dl (14.0-18.0)
[2017-09-04] MEDS: ATORVASTATIN 80 MG TAB PO SCH (20:47)
[2017-09-05] VITALS (25 sets, daily range): BP systolic 105–157; BP diastolic 47–114; PULSE 65–99; RESP 15–37
[2017-09-05 01:00] LABS: HEMATOCRIT 25.7 % (42.0-52.0); HEMOGLOBIN 8.9 g/dl (14.0-18.0)
[2017-09-05 04:56] LABS: HEMATOCRIT 24.7 % (42.0-52.0); HEMOGLOBIN 8.5 g/dl (14.0-18.0); LYMPHOCYTES # 1.3 10^3/ul (0.8-2.9); LYMPHOCYTES % 17.1 % (15.0-51.0); MEAN CORPUSCULAR HEMOGLOBIN 30.1 pg (29.0-33.0); MEAN CORPUSCULAR HGB CONC 34.4 g/dl (32.0-37.0); MEAN CORPUSCULAR VOLUME 87.6 fl (82.0-101.0); MEAN PLATELET VOLUME 10.6 fl (7.4-10.4); MONOCYTE # 0.5 10^3/ul (0.3-0.9); MONOCYTES % 6.3 % (0.0-11.0); NEUTROPHIL # 5.7 10^3/ul (1.6-7.5); NEUTROPHILS % 75.4 % (39.0-77.0); NUCLEATED RED BLOOD CELLS # 0.1 10^3/ul (0.0-0.0); NUCLEATED RED BLOOD CELLS% 0.7 /100WBC (0.0-0.0); PLATELET COUNT 173 10^3/UL (140-415); RED BLOOD COUNT 2.82 10^6/ul (4.70-6.10); RED CELL DISTRIBUTION WIDTH 16.6 % (11.5-14.5); WHITE BLOOD COUNT 7.6 10^3/ul (4.8-10.8)
[2017-09-05 05:16] LABS: CREATININE 1.47 mg/dl (0.61-1.24); POTASSIUM 4.4 mmol/L (3.5-5.1)
[2017-09-05] MEDS: SOD CHLORIDE 0.9% 1,000 ML IV SCH ×3 (05:57→22:00)
[2017-09-05] MEDS: PANTOPRAZOLE IV 80 MG in SOD CHLORIDE 0.9% 100 ML IV SCH ×4 (05:57→23:51)
[2017-09-05] MEDS: DOCUSATE SODIUM 100 MG CAP PO SCH ×2 (07:30→21:00)
[2017-09-05] MEDS: BALSAM PERU/CASTOR OIL 60 GM TUBE TOP SCH (09:00)
[2017-09-05] MEDS: OCTREOTIDE 1 MG in SOD CHLORIDE 0.9% 95 ML IV SCH (09:31)
[2017-09-05] MEDS: SUCRALFATE (100 MG/ML) 10ML CUP PO SCH ×4 (09:31→21:05)
[2017-09-05] MEDS: CLOPIDOGREL 75 MG TAB PO SCH (09:31)
[2017-09-05] MEDS: ALLOPURINOL 100 MG TAB PO SCH ×2 (09:31→21:05)
[2017-09-05] MEDS: predniSONE 20 MG TAB PO SCH (09:31)
[2017-09-05] MEDS: FERROUS SULFATE (EC) 325 MG TAB PO SCH (09:31)
--- NOTE | 2017-09-05 10:59 | PN ---
Date/Time of Note Date/Time of Note DATE: 09/05/17 TIME: 10:59 Assessment/Plan VTE Prophylaxis VTE Prophylaxis Intervention: SCD's Lines/Catheters IV Catheter Type (from Nrsg): PICC Line Central line still needed: No Urinary Cath still in place: No Assessment/Plan Assessment/Plan 87 yo M with multiple hospitalizations in recent months, initially had gallstone pancreatitis, then had STEMI now here with generalized weakness. Hospitalization notable for hypovolemic shock 2/2 GI bleed. EGD with large duodenal ulcer with an adherent clot not amenable to intervention #sudden onset hypovolemic shock 2/2 GIB from large duodenal ulcer transfuse blood to goal hgb >7. GI apparently with higher transfusion threshold somatostatin and PPI as per PI volume resuscitation #MARCOS: likely prerenal from hypotension, improving. -cont IVFs #gout flare: prednisone burst given CKD-->ends today cont home allopurinol #elevated trop: cardiology following, stress test unremarkable holding BP meds given hypotension, asa given bleeding, cont plavix given stent #low albumin: repeat UA without proteinuria RD eval for ?poor PO?-->placed today 12.3 #subclinical hypothyroid: outpatient follow up #compression deformity: vit D low 6 days ago. started ergo appears pt seen by neurosurg during recent admit but note not yet available-- >still not in. checked again today 12.3 Cont plavix given recent cardiac stent, HOLD LOVENOX discharge planning: repeat PT eval ordered today critical care time; 30 minutes Subjective 24 Hr Interval Summary Free Text/Dictation Comfortable. sitting up in bed, eating CLD breakfast Exam/Review of Systems Vital Signs Vitals Vital Signs Date Time Temp Pulse Resp B/P Pulse Ox O2 Delivery O2 Flow Rate FiO2 09/05/17 10:00 82 23 138/67 98 Room Air 09/05/17 08:00 98.0 09/04/17 17:55 2.0 09/04/17 05:52 21 Intake and Output 09/04/17 09/04/17 09/05/17 15:00 23:00 07:00 Intake Total 1340 ml 1795 ml 1170 ml Output Total 650 ml 550 ml 465 ml Balance 690 ml 1245 ml 705 ml Exam nad no mrg lungs clear abd soft no rashes hgbs noted Results Result Diagram: 09/05/17 0400 09/05/17 0400 Results 24 hrs Laboratory Tests Test 09/04/17 13:20 09/04/17 18:51 09/05/17 00:23 09/05/17 04:00 Hemoglobin 9.9 #L 9.1 L 8.9 L 8.5 L Hematocrit 28.3 #L 26.2 L 25.7 L 24.7 L White Blood Count 7.6 # Red Blood Count 2.82 #L Mean Corpuscular Volume 87.6 Mean Corpuscular Hemoglobin 30.1 Mean Corpuscular Hemoglobin Concent 34.4 Red Cell Distribution Width 16.6 H Platelet Count 173 Mean Platelet Volume 10.6 H Neutrophils % 75.4 Lymphocytes % 17.1 Monocytes % 6.3 Eosinophils % 0.0 Basophils % 0.0 Nucleated Red Blood Cells % 0.7 H Neutrophils # 5.7 Lymphocytes # 1.3 Monocytes # 0.5 Eosinophils # 0.0 Basophils # 0.0 Nucleated Red Blood Cells # 0.1 H Sodium Level 137 Potassium Level 4.4 Chloride Level 114 H Carbon Dioxide Level 18 L Anion Gap 9 Blood Urea Nitrogen 33 #H Creatinine 1.47 H Glucose Level 121 Calcium Level 8.0 L Medications Medications Current Medications Miscellaneous Information (Pending Santyl Order For Wound Care) This patient swan... PRN PRN XX WOUND CARE; Start 08/30/17 at 06:00 Nitroglycerin (Nitroglycerin (Sl Tab) 0.4 Mg) 1 tab Q5M PRN SL CHEST PAIN; Start 08/30/17 at 07:30 Acetaminophen (Tylenol Tab) 650 mg Q6H PRN PO PAIN LEVEL 1-3 OR FEVER Last administered on 09/02/17 10:20; Admin Dose 650 MG; Start 08/30/17 at 07:30 Morphine Sulfate (morphine) 2 mg Q4H PRN IV PAIN LEVEL 7-10; Start 08/30/17 at 07:30 Allopurinol (Zyloprim) 100 mg BID PO Last administered on 09/05/17 09:31; Admin Dose 100 MG; Start 08/30/17 at 09:00 Aspirin (Halfprin) 81 mg DAILY PO Last administered on 09/02/17 10:20; Admin Dose 81 MG; Start 08/30/17 at 09:00; Status Future Hold Atorvastatin Calcium (Lipitor) 80 mg DAILY@21 PO Last administered on 20:47; Admin Dose 80 MG; Start 08/30/17 at 21:00 Carvedilol (Coreg) 3.125 mg BID PO Last administered on 09/02/17 20:49; Admin Dose 3.125 MG; Start 08/30/17 at 09:00; Status Future Hold Ferrous Sulfate (Ferrous Sulfate (Ec)) 325 mg DAILY PO Last administered on 09:31; Admin Dose 325 MG; Start 08/30/17 at 09:00 Ergocalciferol (Drisdol) 50,000 unit Tu@09 PO Last administered on 08/31/17 09:35; Admin Dose 50,000 UNIT; Start 08/31/17 at 09:00 Prednisone 40 mg 40 mg DAILY PO Last administered on 09/05/17 09:31; Admin Dose 40 MG; Start 08/31/17 at 15:00; Stop 09/05/17 at 14:59 Pantoprazole 80 mg/Sodium Chloride 100 ml @ 10 mls/hr Q10H IV Last administered on 09/05/17 05:57; Admin Dose 10 MLS/HR; Start 09/02/17 at 13:30 Norepinephrine/ Dextrose (Levophed/D5W) 500 ml @ 0 mls/hr TITRATE IV Last administered on 09/03/17 00:34; Admin Dose 18.63 MLS/HR; Start 09/02/17 at 16: 00 IV Flush 10 ml 10 ml PRN PRN IV IV PROTOCOL; Start 09/03/17 at 11:30 Octreotide Acetate/Sodium Chloride (Sandostatin/NS) 100 ml @ 5 mls/hr Q20H IV Last administered on 09/05/17 09:31; Admin Dose 5 MLS/HR; Start 09/03/17 at 19: 30 Sucralfate (Carafate Susp) 1 gm QID PO Last administered on 09/05/17 09:31; Admin Dose 1 GM; Start 09/03/17 at 18:30 Clopidogrel Bisulfate 75 mg 75 mg DAILY PO Last administered on 09/05/17 09:31 ; Admin Dose 75 MG; Start 09/03/17 at 18:45 Sodium Chloride (NS) 1,000 ml @ 125 mls/hr Q8H IV Last administered on 12/3/ 17at 05:57; Admin Dose 125 MLS/HR; Start 09/04/17 at 12:30 Docusate Sodium (Colace) 100 mg BID PO ; Start 09/05/17 at 21:00 LORI MIRANDA MD Sep 05, 2017 10:59
[2017-09-05 13:43] LABS: HEMATOCRIT 24.9 % (42.0-52.0); HEMOGLOBIN 8.6 g/dl (14.0-18.0)
--- NOTE | 2017-09-05 14:09 | PN ---
Date/Time of Note Date/Time of Note DATE: 09/05/17 TIME: 14:07 Assessment/Plan VTE Prophylaxis VTE Prophylaxis Intervention: SCD's Lines/Catheters IV Catheter Type (from Nrs): PICC Line Central line still needed: Yes Urinary Cath still in place: No Assessment/Plan Chief Complaint/Hosp Course Assessment: Hematochezia EGD 2 cm active duodenal ulcer with a large firmly adherent clot No therapeutic intervention is the base of the clot is at least 10 mm wide Otherwise normal EGD Anemia NSTEMI CAD Recent PCI RCA HTN DM HX CHF Dementia Plan: Continue on Protonix and octreotide drips Liquid Carafate Continue Plavix Close monitor transfuse for hemoglobin less than 8.5 Clear liquid diet If hemoglobin remains stable tomorrow we will advance diet and DC drips Patient denies abdominal pain. Stools are yellow no hematochezia. Will continue close monitoring of H&H every 6 hours. Patient will remain in ICU until tomorrow. Plan of care discussed with nursing staff and patient's daughter. = PHYSICAL EXAMINATION: GENERAL: Well developed, well nourished, alert & oriented x 3, in no acute distress SKIN: No lesions, no stigmata chronic liver disease, no evidence of bleeding diathesis LYMPHATIC: No palpable lymphadenopathy. HEAD: Normocephalic, atraumatic, no tenderness. EYES: Pupils equal reactive to light and accommodation, full extraocular movements, sclera clear, non-icteric, no discharge. EARS/NOSE AND THROAT: Ears normal, nose normal, oropharynx normal, oral membranes well hydrated without lesions. NECK: Supple, no masses, thyroid normal, JVP within normal limits, carotids normal without bruits. CHEST: Inspection within normal limits. CARDIOVASCULAR: Heart: Regular rate and rhythm, no murmurs, gallops or rubs. Peripheral pulses present within normal limits, no cyanosis, clubbing or edemas. No pulsatile abdominal mass RESPIRATORY: Lungs clear to auscultation and percussion, no wheezing, no rubs GASTROINTESTINAL AND LIVER: Abdomen: Soft, non tenderness, non-distended, no hernias, no masses, no organomegaly, no ascites, no guarding, no rebound tenderness, normoactive bowel sounds. Rectal: Deferred. GENITOURINARY: [Male genitalia within normal limits. EXTREMITIES: No cyanosis, clubbing or edema. Problems: Exam/Review of Systems Vital Signs Vitals Vital Signs Date Time Temp Pulse Resp B/P Pulse Ox O2 Delivery O2 Flow Rate FiO2 09/05/17 13:00 75 20 135/65 98 Room Air 09/05/17 12:00 97.6 09/04/17 17:55 2.0 09/04/17 05:52 21 Intake and Output 09/04/17 09/04/17 09/05/17 15:00 23:00 07:00 Intake Total 1340 ml 1795 ml 1170 ml Output Total 650 ml 550 ml 465 ml Balance 690 ml 1245 ml 705 ml Results Result Diagram: 09/05/17 1318 09/05/17 0400 Results 24 hrs Laboratory Tests Test 09/04/17 18:51 09/05/17 00:23 09/05/17 04:00 09/05/17 13:18 Hemoglobin 9.1 L 8.9 L 8.5 L 8.6 L Hematocrit 26.2 L 25.7 L 24.7 L 24.9 L White Blood Count 7.6 # Red Blood Count 2.82 #L Mean Corpuscular Volume 87.6 Mean Corpuscular Hemoglobin 30.1 Mean Corpuscular Hemoglobin Concent 34.4 Red Cell Distribution Width 16.6 H Platelet Count 173 Mean Platelet Volume 10.6 H Neutrophils % 75.4 Lymphocytes % 17.1 Monocytes % 6.3 Eosinophils % 0.0 Basophils % 0.0 Nucleated Red Blood Cells % 0.7 H Neutrophils # 5.7 Lymphocytes # 1.3 Monocytes # 0.5 Eosinophils # 0.0 Basophils # 0.0 Nucleated Red Blood Cells # 0.1 H Sodium Level 137 Potassium Level 4.4 Chloride Level 114 H Carbon Dioxide Level 18 L Anion Gap 9 Blood Urea Nitrogen 33 #H Creatinine 1.47 H Glucose Level 121 Calcium Level 8.0 L Medications Medications Current Medications Miscellaneous Information (Pending Santyl Order For Wound Care) This patient swan... PRN PRN XX WOUND CARE; Start 08/30/17 at 06:00 Nitroglycerin (Nitroglycerin (Sl Tab) 0.4 Mg) 1 tab Q5M PRN SL CHEST PAIN; Start 08/30/17 at 07:30 Acetaminophen (Tylenol Tab) 650 mg Q6H PRN PO PAIN LEVEL 1-3 OR FEVER Last administered on 09/02/17t 10:20; Admin Dose 650 MG; Start 08/30/17 at 07:30 Morphine Sulfate (morphine) 2 mg Q4H PRN IV PAIN LEVEL 7-10; Start 08/30/17 at 07:30 Allopurinol (Zyloprim) 100 mg BID PO Last administered on 09/05/17 09:31; Admin Dose 100 MG; Start 08/30/17 at 09:00 Aspirin (Halfprin) 81 mg DAILY PO Last administered on 09/02/17 10:20; Admin Dose 81 MG; Start 08/30/17 at 09:00; Status Future Hold Atorvastatin Calcium (Lipitor) 80 mg DAILY@21 PO Last administered on 20:47; Admin Dose 80 MG; Start 08/30/17 at 21:00 Carvedilol (Coreg) 3.125 mg BID PO Last administered on 09/02/17 20:49; Admin Dose 3.125 MG; Start 08/30/17 at 09:00; Status Future Hold Ferrous Sulfate (Ferrous Sulfate (Ec)) 325 mg DAILY PO Last administered on 09:31; Admin Dose 325 MG; Start 08/30/17 at 09:00 Ergocalciferol (Drisdol) 50,000 unit Tu@09 PO Last administered on 08/31/17 09:35; Admin Dose 50,000 UNIT; Start 08/31/17 at 09:00 Prednisone 40 mg 40 mg DAILY PO Last administered on 09/05/17 09:31; Admin Dose 40 MG; Start 08/31/17 at 15:00; Stop 09/05/17 at 14:59 Pantoprazole/ Sodium Chloride (Protonix Iv/NS) 100 ml @ 10 mls/hr Q10H IV Last administered on 09/05/17 13:39; Admin Dose 10 MLS/HR; Start 09/02/17 at 13:30 IV Flush 10 ml 10 ml PRN PRN IV IV PROTOCOL; Start 09/03/17 at 11:30 Octreotide Acetate/Sodium Chloride (Sandostatin/NS) 100 ml @ 5 mls/hr Q20H IV Last administered on 09/05/17 09:31; Admin Dose 5 MLS/HR; Start 09/03/17 at 19: 30 Sucralfate (Carafate Susp) 1 gm QID PO Last administered on 09/05/17 13:39; Admin Dose 1 GM; Start 09/03/17 at 18:30 Clopidogrel Bisulfate 75 mg 75 mg DAILY PO Last administered on 09/05/17 09:31 ; Admin Dose 75 MG; Start 09/03/17 at 18:45 Sodium Chloride (NS) 1,000 ml @ 125 mls/hr Q8H IV Last administered on 13:40; Admin Dose 125 MLS/HR; Start 09/04/17 at 12:30 Docusate Sodium (Colace) 100 mg BID PO ; Start 09/05/17 at 21:00 CALVIN THAKUR MD Sep 05, 2017 14:09
--- NOTE | 2017-09-05 14:35 | CONS ---
Date/Time of Note Date/Time of Note DATE: 09/05/17 TIME: 14:34 Consult Date/Type/Reason Admit Date/Time Aug 30, 2017 at 01:20 Initial Consult Date 08/31/17 Type of Consultation: card Ordering Provider: LORI MIRANDA MD Subjective cardiology follow up note: S: D/W staff and rhythm was reviewed. d/W physicians pt s/p EGD on 09/03/17 which shows significant ulcer. pt with no chest pain or pressure he denies any more bleeding now. pt remains in ICU for close monitoring O; General: no acute distress HEENT: NC/AT. pupils are equal. round. s/p NG tube in place. NECK: NO JVD. no stridor. CV: RRR. systolic murmur; no gallop or rubs. PULM: no wheezing or rhonchi. GI: SOFT, NT, ND, no rebound or guarding Extremity: trace B/L LE edema. no clubbing. neuro: awake and alert, OX2. Psych: calm and pleasant rectal: deferred ECHO REVIEWED. ECG REVIEWED. Objective Vital Signs Date Time Temp Pulse Resp B/P Pulse Ox O2 Delivery O2 Flow Rate FiO2 09/05/17 13:00 75 20 135/65 98 Room Air 09/05/17 12:00 97.6 09/04/17 17:55 2.0 09/04/17 05:52 21 Intake and Output 09/04/17 09/04/17 09/05/17 14:59 22:59 06:59 Intake Total 1080 ml 1915 ml 1175 ml Output Total 400 ml 800 ml 465 ml Balance 680 ml 1115 ml 710 ml Results/Medications Result Diagram: 09/05/17 1318 09/05/17 0400 Results 24 hrs Laboratory Tests Test 09/04/17 18:51 09/05/17 00:23 09/05/17 04:00 09/05/17 13:18 Hemoglobin 9.1 L 8.9 L 8.5 L 8.6 L Hematocrit 26.2 L 25.7 L 24.7 L 24.9 L White Blood Count 7.6 # Red Blood Count 2.82 #L Mean Corpuscular Volume 87.6 Mean Corpuscular Hemoglobin 30.1 Mean Corpuscular Hemoglobin Concent 34.4 Red Cell Distribution Width 16.6 H Platelet Count 173 Mean Platelet Volume 10.6 H Neutrophils % 75.4 Lymphocytes % 17.1 Monocytes % 6.3 Eosinophils % 0.0 Basophils % 0.0 Nucleated Red Blood Cells % 0.7 H Neutrophils # 5.7 Lymphocytes # 1.3 Monocytes # 0.5 Eosinophils # 0.0 Basophils # 0.0 Nucleated Red Blood Cells # 0.1 H Sodium Level 137 Potassium Level 4.4 Chloride Level 114 H Carbon Dioxide Level 18 L Anion Gap 9 Blood Urea Nitrogen 33 #H Creatinine 1.47 H Glucose Level 121 Calcium Level 8.0 L Medications Current Medications Miscellaneous Information (Pending Santyl Order For Wound Care) This patient swan... PRN PRN XX WOUND CARE; Start 08/30/17 at 06:00 Nitroglycerin (Nitroglycerin (Sl Tab) 0.4 Mg) 1 tab Q5M PRN SL CHEST PAIN; Start 08/30/17 at 07:30 Acetaminophen (Tylenol Tab) 650 mg Q6H PRN PO PAIN LEVEL 1-3 OR FEVER Last administered on 09/02/17 10:20; Admin Dose 650 MG; Start 08/30/17 at 07:30 Morphine Sulfate (morphine) 2 mg Q4H PRN IV PAIN LEVEL 7-10; Start 08/30/17 at 07:30 Allopurinol (Zyloprim) 100 mg BID PO Last administered on 09/05/17 09:31; Admin Dose 100 MG; Start 08/30/17 at 09:00 Aspirin (Halfprin) 81 mg DAILY PO Last administered on 09/02/17 10:20; Admin Dose 81 MG; Start 08/30/17 at 09:00; Status Future Hold Atorvastatin Calcium (Lipitor) 80 mg DAILY@21 PO Last administered on 20:47; Admin Dose 80 MG; Start 08/30/17 at 21:00 Carvedilol (Coreg) 3.125 mg BID PO Last administered on 09/02/17 20:49; Admin Dose 3.125 MG; Start 08/30/17 at 09:00; Status Future Hold Ferrous Sulfate (Ferrous Sulfate (Ec)) 325 mg DAILY PO Last administered on 09:31; Admin Dose 325 MG; Start 08/30/17 at 09:00 Ergocalciferol (Drisdol) 50,000 unit Tu@09 PO Last administered on 08/31/17 09:35; Admin Dose 50,000 UNIT; Start 08/31/17 at 09:00 Prednisone 40 mg 40 mg DAILY PO Last administered on 09/05/17 09:31; Admin Dose 40 MG; Start 08/31/17 at 15:00; Stop 09/05/17 at 14:59 Pantoprazole/ Sodium Chloride (Protonix Iv/NS) 100 ml @ 10 mls/hr Q10H IV Last administered on 09/05/17 13:39; Admin Dose 10 MLS/HR; Start 09/02/17 at 13:30 IV Flush 10 ml 10 ml PRN PRN IV IV PROTOCOL; Start 09/03/17 at 11:30 Octreotide Acetate/Sodium Chloride (Sandostatin/NS) 100 ml @ 5 mls/hr Q20H IV Last administered on 09/05/17 09:31; Admin Dose 5 MLS/HR; Start 09/03/17 at 19: 30 Sucralfate (Carafate Susp) 1 gm QID PO Last administered on 09/05/17 13:39; Admin Dose 1 GM; Start 09/03/17 at 18:30 Clopidogrel Bisulfate 75 mg 75 mg DAILY PO Last administered on 09/05/17 09:31 ; Admin Dose 75 MG; Start 09/03/17 at 18:45 Sodium Chloride (NS) 1,000 ml @ 125 mls/hr Q8H IV Last administered on 13:40; Admin Dose 125 MLS/HR; Start 09/04/17 at 12:30 Docusate Sodium (Colace) 100 mg BID PO ; Start 09/05/17 at 21:00 Assessment/Plan Chief Complaint/Hosp Course 1. NSTEMI: lexiscan does not show any significant reversible ischemia. 2. CAD: S/ P inferior STEMI, S/P PCI RCA 3. upper GI bleed/ PUD 4. HTN 5/ DM 6. HX CHF: STABLE NOW 7. Dementia 8 hypo Mg: corrected now 9. CKD 10. hypovolemic shock 11. severe anemia due to GI bleed 12. preop evaluation for endoscopy 13. MARCOS: probably ATN due to hypotension and shock Recommendations: replace lytes prn cont plavix given recent STEMI. PCI But I will hold asa for now, given his active bleeding/ significant PUD/ Bleeding risk for now. off of lovenox lexiscan shows no reversible ischemia resume betablocker now that BP is stable. f/u renal fx. For his referral. We will continue to follow along with you. HAYDEN WAGNER MD [facility] Problems: HAYDEN WAGNER MD Sep 05, 2017 14:35
[2017-09-05 18:57] LABS: HEMATOCRIT 24.9 % (42.0-52.0); HEMOGLOBIN 8.4 g/dl (14.0-18.0)
[2017-09-05] MEDS: ATORVASTATIN 80 MG TAB PO SCH (21:05)
[2017-09-06] VITALS (19 sets, daily range): BP systolic 121–165; BP diastolic 56–109; PULSE 51–76; RESP 14–23
[2017-09-06 00:56] LABS: HEMATOCRIT 26.4 % (42.0-52.0); HEMOGLOBIN 9.1 g/dl (14.0-18.0)
[2017-09-06] MEDS: OCTREOTIDE 1 MG in SOD CHLORIDE 0.9% 95 ML IV SCH (03:33)
[2017-09-06] MEDS: SOD CHLORIDE 0.9% 1,000 ML IV SCH ×2 (05:36→11:57)
[2017-09-06 06:05] LABS: HEMATOCRIT 27.2 % (42.0-52.0); HEMOGLOBIN 9.3 g/dl (14.0-18.0)
[2017-09-06 06:40] LABS: CALCIUM 7.5 mg/dl (8.4-10.2); CREATININE 1.21 mg/dl (0.61-1.24); POTASSIUM 3.8 mmol/L (3.5-5.1)
[2017-09-06] MEDS: SUCRALFATE (100 MG/ML) 10ML CUP PO SCH ×4 (08:26→21:33)
[2017-09-06] MEDS: FERROUS SULFATE (EC) 325 MG TAB PO SCH (08:27)
[2017-09-06] MEDS: CLOPIDOGREL 75 MG TAB PO SCH (08:27)
[2017-09-06] MEDS: ALLOPURINOL 100 MG TAB PO SCH ×2 (08:27→21:33)
[2017-09-06] MEDS: DOCUSATE SODIUM 100 MG CAP PO SCH ×2 (08:27→21:32)
[2017-09-06] MEDS: PANTOPRAZOLE IV 80 MG in SOD CHLORIDE 0.9% 100 ML IV SCH (08:27)
[2017-09-06] MEDS: BALSAM PERU/CASTOR OIL 60 GM TUBE TOP SCH (08:29)
--- NOTE | 2017-09-06 10:35 | PN ---
Date/Time of Note Date/Time of Note DATE: 09/06/17 TIME: 10:24 Assessment/Plan VTE Prophylaxis VTE Prophylaxis Intervention: SCD's Lines/Catheters IV C[facility] Type (from [facility] PICC Line Central line still needed: Yes Urinary Cath still in place: No Assessment/Plan Chief Complaint/Hosp Course S: No acute events overnight, still on octreotide and PPI drips. Pt mentioned having some dark stools, but no overt bleeding. H/H stable. Tolerating clear liquid diet. O: VS (see below) PE: GENERAL: Well developed, well nourished, alert & oriented x 3, in no acute distress HEAD: Normocephalic, atraumatic, no tenderness. EYES: Pupils equal reactive to light and accommodation, full extraocular movements, sclera clear, non-icteric, no discharge. EARS/NOSE AND THROAT: Ears normal, nose normal, oropharynx normal, oral membranes well hydrated without lesions. NECK: Supple, no masses, thyroid normal, JVP within normal limits, carotids normal without bruits. RESPIRATORY: Lungs clear to auscultation and percussion, no wheezing, no rubs CARDIOVASCULAR: Heart: Regular rate and rhythm, no murmurs, gallops or rubs. Peripheral pulses present within normal limits, no cyanosis, clubbing or edemas. No pulsatile abdominal mass ABD: Abdomen: Soft, non tenderness, non-distended, no hernias, no masses, no organomegaly, no ascites, no guarding, no rebound tenderness, normoactive bowel sounds. M/S: No lower extremity edema bilaterally NEURO: No focal deficits Assessment/Plan: 87 yo M with multiple hospitalizations in recent months, initially had gallstone pancreatitis, then had STEMI now here with generalized weakness. Hospitalization notable for hypovolemic shock 2/2 GI bleed. EGD with large duodenal ulcer with an adherent clot not amenable to intervention. 1. sudden onset hypovolemic shock - 2/2 GIB from large duodenal ulcer, presently on PPI and octreotide drips, hemoglobin stable. No signs of any overt bleeding presently. -Monitor H&H, transfuse blood to goal hgb >7. GI apparently with higher transfusion threshold -For now continue somatostatin and PPI as per GI - volume resuscitation -Advance diet per GI recommendations 2. MARCOS: likely prerenal from hypotension, improving. -cont IVFs 3. gout flare: Improving cont home allopurinol 4. elevated trop: Patient recently treated for ST elevation [place], cardiology following, stress test unremarkable - holding asa given bleeding, cont plavix given stent 5. low albumin: repeat UA without proteinuria -Appreciate nutrition eval, follow the recommendation 6. subclinical hypothyroid: outpatient follow up 7. compression deformity: vit D low 7 days ago. started ergo appears pt seen by neurosurg during recent admit but note not yet available - monitor discharge planning: Follow-up PT eval critical care time today = 45 minutes Problems: Exam/Review of Systems Vital Signs Vitals Vital Signs Date Time Temp Pulse Resp B/P Pulse Ox O2 Delivery O2 Flow Rate FiO2 09/06/17 08:00 64 16 155/109 99 Room Air 09/06/17 07:00 98.2 09/04/17 17:55 2.0 09/04/17 05:52 21 Intake and Output 09/05/17 09/05/17 09/06/17 14:59 22:59 06:59 Intake Total 1219.5 ml 1180 ml 1412.5 ml Output Total 50 ml 750 ml 575 ml Balance 1169.5 ml 430 ml 837.5 ml Results Result Diagram: 09/06/17 0400 09/06/17 0400 Results 24 hrs Laboratory Tests Test 09/05/17 13:18 09/05/17 18:34 09/06/17 00:34 09/06/17 04:00 Hemoglobin 8.6 L 8.4 L 9.1 L 9.3 L Hematocrit 24.9 L 24.9 L 26.4 L 27.2 L Sodium Level 135 Potassium Level 3.8 Chloride Level 113 H Carbon Dioxide Level 17 L Anion Gap 9 Blood Urea Nitrogen 26 H Creatinine 1.21 Glucose Level 104 Calcium Level 7.5 L Test 09/06/17 05:16 Lab Scanned Report BLOOD TRANSFUSION Medications Medications Current Medications Miscellaneous Information [facility] This patient swan... PRN PRN XX WOUND CARE; Start 08/30/17 at 06:00 Nitroglycerin (Nitroglycerin (Sl Tab) 0.4 Mg) 1 tab Q5M PRN SL CHEST PAIN; Start 08/30/17 at 07:30 Acetaminophen (Tylenol Tab) 650 mg Q6H PRN PO PAIN LEVEL 1-3 OR FEVER Last administered on 09/02/17 10:20; Admin Dose 650 MG; Start 08/30/17 at 07:30 Morphine Sulfate (morphine) 2 mg Q4H PRN IV PAIN LEVEL 7-10; Start 08/30/17 at 07:30 Allopurinol (Zyloprim) 100 mg BID PO Last administered on 09/06/17 08:27; Admin Dose 100 MG; Start 08/30/17 at 09:00 Aspirin (Halfprin) 81 mg DAILY PO Last administered on 09/02/17 10:20; Admin Dose 81 MG; Start 08/30/17 at 09:00; Status Future Hold Atorvastatin Calcium (Lipitor) 80 mg DAILY@21 PO Last administered on 21:05; Admin Dose 80 MG; Start 08/30/17 at 21:00 Carvedilol (Coreg) 3.125 mg BID PO Last administered on 09/06/17 08:27; Admin Dose 3.125 MG; Start 08/30/17 at 09:00; Status Future hold Ferrous Sulfate (Ferrous Sulfate (Ec)) 325 mg DAILY PO Last administered on 08:27; Admin Dose 325 MG; Start 08/30/17 at 09:00 Ergocalciferol 01763 unit 50,000 unit Tu@09 PO Last administered on 08/31/17 09:35; Admin Dose 50,000 UNIT; Start 08/31/17 at 09:00 Pantoprazole/ Sodium Chloride (Protonix Iv/NS) 100 ml @ 10 mls/hr Q10H IV Last administered on 09/06/17 08:27; Admin Dose 10 MLS/HR; Start 09/02/17 at 13:30 IV Flush 10 ml 10 ml PRN PRN IV IV PROTOCOL; Start 09/03/17 at 11:30 Octreotide Acetate/Sodium Chloride (Sandostatin/NS) 100 ml @ 5 mls/hr Q20H IV Last administered on 09/06/17 03:33; Admin Dose 5 MLS/HR; Start 09/03/17 at 19: 30 Sucralfate (Carafate Susp) 1 gm QID PO Last administered on 09/06/17 08:26; Admin Dose 1 GM; Start 09/03/17 at 18:30 Clopidogrel Bisulfate 75 mg 75 mg DAILY PO Last administered on 09/06/17 08:27 ; Admin Dose 75 MG; Start 09/03/17 at 18:45 Sodium Chloride (NS) 1,000 ml @ 125 mls/hr Q8H IV Last administered on 05:36; Admin Dose 125 MLS/HR; Start 09/04/17 at 12:30 Docusate Sodium (Colace) 100 mg BID PO Last administered on 09/06/17 08:27; Admin Dose 100 MG; Start 09/05/17 at 21:00 MINA CALI Sep 06, 2017 10:35
--- NOTE | 2017-09-06 11:33 | PN ---
Date/Time of Note Date/Time of Note DATE: 09/06/17 TIME: :22 Assessment/Plan VTE Prophylaxis VTE Prophylaxis Intervention: SCD's Lines/Catheters IV Catheter Type (from Nrsg): PICC Line Central line still needed: Yes (meds) Urinary Cath still in place: Yes Reason Cath still needed: other (indicate) (monitor output) Assessment/Plan Chief Complaint/Hosp Course Assessment: Hematochezia EGD 2 cm active duodenal ulcer with a large firmly adherent clot No therapeutic intervention is the base of the clot is at least 10 mm wide Otherwise normal EGD Anemia NSTEMI CAD Recent PCI RCA HTN DM HX CHF Dementia Plan: Will stop Protonix and octreotide drips Start Protonix po BID Liquid Carafate Continue Plavix Close monitor transfuse for hemoglobin less than 8.5 Increase diet to soft Check h/h q12 Ok to downgrade to tele from GI point of view Patient seen in collaboration with Dr. Burgess Patient denies abdominal pain. Denies hematochezia or hematemesis Will continue close monitoring of H&H every 12 hours. Will advance diet to soft PHYSICAL EXAMINATION: GENERAL: Well developed, well nourished, alert & oriented x 3, in no acute distress SKIN: No lesions, no stigmata chronic liver disease, no evidence of bleeding diathesis LYMPHATIC: No palpable lymphadenopathy. HEAD: Normocephalic, atraumatic, no tenderness. EYES: Pupils equal reactive to light and accommodation, full extraocular movements, sclera clear, non-icteric, no discharge. EARS/NOSE AND THROAT: Ears normal, nose normal, oropharynx normal, oral membranes well hydrated without lesions. NECK: Supple, no masses, thyroid normal, JVP within normal limits, carotids normal without bruits. CHEST: Inspection within normal limits. CARDIOVASCULAR: Heart: Regular rate and rhythm, no murmurs, gallops or rubs. Peripheral pulses present within normal limits, no cyanosis, clubbing or edemas. No pulsatile abdominal mass RESPIRATORY: Lungs clear to auscultation and percussion, no wheezing, no rubs GASTROINTESTINAL AND LIVER: Abdomen: Soft, non tenderness, non-distended, no hernias, no masses, no organomegaly, no ascites, no guarding, no rebound tenderness, normoactive bowel sounds. Rectal: Deferred. GENITOURINARY: [Male genitalia within normal limits. EXTREMITIES: No cyanosis, clubbing or edema. Problems: Exam/Review of Systems Vital Signs Vitals Vital Signs Date Time Temp Pulse Resp B/P Pulse Ox O2 Delivery O2 Flow Rate FiO2 09/06/17 08:00 64 16 155/109 99 Room Air 09/06/17 07:00 98.2 09/04/17 17:55 2.0 09/04/17 05:52 21 Intake and Output 09/05/17 09/05/17 09/06/17 15:00 23:00 07:00 Intake Total 1224.5 ml 1180 ml 1412.5 ml Output Total 50 ml 750 ml 575 ml Balance 1174.5 ml 430 ml 837.5 ml Results Result Diagram: 09/06/17 0400 09/06/17 0400 Results 24 hrs Laboratory Tests Test 09/05/17 13:18 09/05/17 18:34 09/06/17 00:34 09/06/17 04:00 Hemoglobin 8.6 L 8.4 L 9.1 L 9.3 L Hematocrit 24.9 L 24.9 L 26.4 L 27.2 L Sodium Level 135 Potassium Level 3.8 Chloride Level 113 H Carbon Dioxide Level 17 L Anion Gap 9 Blood Urea Nitrogen 26 H Creatinine 1.21 Glucose Level 104 Calcium Level 7.5 L Test 09/06/17 05:16 Lab Scanned Report BLOOD TRANSFUSION Medications Medications Current Medications Miscellaneous Information (Pending [facility] Order For Wound Care) This patient swan... PRN PRN XX WOUND CARE; Start 08/30/17 at 06:00 Nitroglycerin (Nitroglycerin (Sl Tab) 0.4 Mg) 1 tab Q5M PRN SL CHEST PAIN; Start 08/30/17 at 07:30 Acetaminophen (Tylenol Tab) 650 mg Q6H PRN PO PAIN LEVEL 1-3 OR FEVER Last administered on 09/02/17 10:20; Admin Dose 650 MG; Start 08/30/17 at 07:30 Morphine Sulfate (morphine) 2 mg Q4H PRN IV PAIN LEVEL 7-10; Start 08/30/17 at 07:30 Allopurinol (Zyloprim) 100 mg BID PO Last administered on 09/06/17 08:27; Admin Dose 100 MG; Start 08/30/17 at 09:00 Aspirin (Halfprin) 81 mg DAILY PO Last administered on 09/02/17 10:20; Admin Dose 81 MG; Start 08/30/17 at 09:00; Status Future Hold Atorvastatin Calcium (Lipitor) 80 mg DAILY@21 PO Last administered on 21:05; Admin Dose 80 MG; Start 08/30/17 at 21:00 Carvedilol (Coreg) 3.125 mg BID PO Last administered on 09/06/17 08:27; Admin Dose 3.125 MG; Start 08/30/17 at 09:00; Status Future hold Ferrous Sulfate (Ferrous Sulfate (Ec)) 325 mg DAILY PO Last administered on 08:27; Admin Dose 325 MG; Start 08/30/17 at 09:00 Ergocalciferol 91741 unit 50,000 unit Tu@09 PO Last administered on 08/31/17 09:35; Admin Dose 50,000 UNIT; Start 08/31/17 at 09:00 Pantoprazole/ Sodium Chloride (Protonix Iv/NS) 100 ml @ 10 mls/hr Q10H IV Last administered on 09/06/17 08:27; Admin Dose 10 MLS/HR; Start 09/02/17 at 13:30 IV Flush 10 ml 10 ml PRN PRN IV IV PROTOCOL; Start 09/03/17 at 11:30 Octreotide Acetate/Sodium Chloride (Sandostatin/NS) 100 ml @ 5 mls/hr Q20H IV Last administered on 09/06/17 03:33; Admin Dose 5 MLS/HR; Start 09/03/17 at 19: 30 Sucralfate (Carafate Susp) 1 gm QID PO Last administered on 09/06/17 08:26; Admin Dose 1 GM; Start 09/03/17 at 18:30 Clopidogrel Bisulfate 75 mg 75 mg DAILY PO Last administered on 09/06/17 08:27 ; Admin Dose 75 MG; Start 09/03/17 at 18:45 Sodium Chloride (NS) 1,000 ml @ 125 mls/hr Q8H IV Last administered on 05:36; Admin Dose 125 MLS/HR; Start 09/04/17 at 12:30 Docusate Sodium (Colace) 100 mg BID PO Last administered on 09/06/17 08:27; Admin Dose 100 MG; Start 09/05/17 at 21:00 NOHEMI SIEGEL Sep 06, 2017 11:33
[2017-09-06 13:16] LABS: HEMATOCRIT 27.9 % (42.0-52.0); HEMOGLOBIN 9.7 g/dl (14.0-18.0)
[2017-09-06] MEDS: PANTOPRAZOLE (EC) 40 MG TAB PO SCH (17:23)
[2017-09-06 18:13] LABS: HEMATOCRIT 29.9 % (42.0-52.0); HEMOGLOBIN 10.3 g/dl (14.0-18.0)
--- NOTE | 2017-09-06 20:10 | CONS ---
Date/Time of Note Date/Time of Note DATE: 09/06/17 TIME: 20:10 Consult Date/Type/Reason Admit Date/Time Aug 30, 2017 at 01:20 Initial Consult Date 08/31/17 Type of Consultation: card Ordering Provider: LORI MIRANDA MD Subjective cardiology follow up note: S: D/W staff and rhythm was reviewed. d/W physicians DW/ Daughter. pt s/p EGD on 09/03/17 which shows significant ulcer. pt with no chest pain or pressure he denies any more bleeding now. O; General: no acute distress HEENT: NC/AT. pupils are equal. round. s/p NG tube in place. NECK: NO JVD. no stridor. CV: RRR. systolic murmur; no gallop or rubs. PULM: no wheezing or rhonchi. GI: SOFT, NT, ND, no rebound or guarding Extremity: trace B/L LE edema. no clubbing. neuro: awake and alert, OX2. Psych: calm and pleasant rectal: deferred ECHO REVIEWED. ECG REVIEWED. Objective Vital Signs Date Time Temp Pulse Resp B/P Pulse Ox O2 Delivery O2 Flow Rate FiO2 09/06/17 16:41 69 09/06/17 15:19 98.2 22 148/87 98 Room Air 09/04/17 17:55 2.0 09/04/17 05:52 21 Intake and Output 09/05/17 09/05/17 09/06/17 15:00 23:00 07:00 Intake Total 1224.5 ml 1180 ml 1412.5 ml Output Total 50 ml 750 ml 575 ml Balance 1174.5 ml 430 ml 837.5 ml Results/Medications Result Diagram: 09/06/17 1746 09/06/17 0400 Results 24 hrs Laboratory Tests Test 09/06/17 00:34 09/06/17 04:00 09/06/17 05:16 09/06/17 13:01 Hemoglobin 9.1 L 9.3 L 9.7 L Hematocrit 26.4 L 27.2 L 27.9 L Sodium Level 135 Potassium Level 3.8 Chloride Level 113 H Carbon Dioxide Level 17 L Anion Gap 9 Blood Urea Nitrogen 26 H Creatinine 1.21 Glucose Level 104 Calcium Level 7.5 L Lab Scanned Report BLOOD TRANSFUSION Test 09/06/17 17:46 Hemoglobin 10.3 L Hematocrit 29.9 L Medications Current Medications Miscellaneous Information (Pending [facility] Order For Wound Care) This patient swan... PRN PRN XX WOUND CARE; Start 08/30/17 at 06:00 Nitroglycerin (Nitroglycerin (Sl Tab) 0.4 Mg) 1 tab Q5M PRN SL CHEST PAIN; Start 08/30/17 at 07:30 Acetaminophen (Tylenol Tab) 650 mg Q6H PRN PO PAIN LEVEL 1-3 OR FEVER Last administered on 09/02/17 10:20; Admin Dose 650 MG; Start 08/30/17 at 07:30 Morphine Sulfate (morphine) 2 mg Q4H PRN IV PAIN LEVEL 7-10; Start 08/30/17 at 07:30 Allopurinol (Zyloprim) 100 mg BID PO Last administered on 09/06/17 08:27; Admin Dose 100 MG; Start 08/30/17 at 09:00 Aspirin (Halfprin) 81 mg DAILY PO Last administered on 09/02/17 10:20; Admin Dose 81 MG; Start 08/30/17 at 09:00; Status Future Hold Atorvastatin Calcium (Lipitor) 80 mg DAILY@21 PO Last administered on 21:05; Admin Dose 80 MG; Start 08/30/17 at 21:00 Carvedilol (Coreg) 3.125 mg BID PO Last administered on 09/06/17 08:27; Admin Dose 3.125 MG; Start 08/30/17 at 09:00; Status Future hold Ferrous Sulfate (Ferrous Sulfate (Ec)) 325 mg DAILY PO Last administered on 08:27; Admin Dose 325 MG; Start 08/30/17 at 09:00 Ergocalciferol (Drisdol) 50,000 unit Tu@09 PO Last administered on 08/31/17 09:35; Admin Dose 50,000 UNIT; Start 08/31/17 at 09:00 IV Flush (NS 10 ml) 10 ml PRN PRN IV IV PROTOCOL; Start 09/03/17 at 11:30 Sucralfate (Carafate Susp) 1 gm QID PO Last administered on 09/06/17 17:23; Admin Dose 1 GM; Start 09/03/17 at 18:30 Clopidogrel Bisulfate 75 mg 75 mg DAILY PO Last administered on 09/06/17 08:27 ; Admin Dose 75 MG; Start 09/03/17 at 18:45 Sodium Chloride (NS) 1,000 ml @ 125 mls/hr Q8H IV Last administered on 11:57; Admin Dose 125 MLS/HR; Start 09/04/17 at 12:30 Docusate Sodium (Colace) 100 mg BID PO Last administered on 09/06/17 08:27; Admin Dose 100 MG; Start 09/05/17 at 21:00 Pantoprazole (Protonix Tab) 40 mg BID@06,18 PO Last administered on 09/06/17 17:23; Admin Dose 40 MG; Start 09/06/17 at 18:00 Assessment/Plan Chief Complaint/Hosp Course 1. NSTEMI: lexiscan does not show any significant reversible ischemia. 2. CAD: S/ P inferior STEMI, S/P PCI RCA 3. upper GI bleed/ PUD 4. HTN 5/ DM 6. HX CHF: STABLE NOW 7. Dementia 8 hypo Mg: corrected now 9. CKD 10. hypovolemic shock 11. severe anemia due to GI bleed 12. preop evaluation for endoscopy 13. MARCOS: probably ATN due to hypotension and shock Recommendations: replace lytes prn cont plavix given recent STEMI. PCI But I will hold asa for now, given his active bleeding/ significant PUD/ Bleeding risk for now. off of lovenox lexiscan shows no reversible ischemia cont betablocker and increase as needed/ tolerated. f/u renal fx. For his referral. We will continue to follow along with you. HAYDEN WAGNER MD [facility] Problems: HAYDEN WAGNER MD Sep 06, 2017 20:10
[2017-09-06] MEDS: ATORVASTATIN 80 MG TAB PO SCH (21:33)
[2017-09-07] VITALS (14 sets, daily range): BP systolic 153–170; BP diastolic 70–90; PULSE 63–82; RESP 18–22
[2017-09-07] MEDS: SOD CHLORIDE 0.9% 1,000 ML IV SCH (01:24)
[2017-09-07 06:49] LABS: BASOPHILS % 0.2 % (0.0-2.0); EOSINOPHILS # 0.5 10^3/ul (0.0-0.5); EOSINOPHILS % 6.2 % (0.0-7.0); HEMATOCRIT 29.9 % (42.0-52.0); HEMOGLOBIN 10.3 g/dl (14.0-18.0); LYMPHOCYTES # 1.7 10^3/ul (0.8-2.9); LYMPHOCYTES % 20.6 % (15.0-51.0); MEAN CORPUSCULAR HEMOGLOBIN 30.1 pg (29.0-33.0); MEAN CORPUSCULAR HGB CONC 34.4 g/dl (32.0-37.0); MEAN CORPUSCULAR VOLUME 87.4 fl (82.0-101.0); MEAN PLATELET VOLUME 10.2 fl (7.4-10.4); MONOCYTE # 0.7 10^3/ul (0.3-0.9); MONOCYTES % 8.5 % (0.0-11.0); NEUTROPHIL # 5.1 10^3/ul (1.6-7.5); NEUTROPHILS % 62.1 % (39.0-77.0); NUCLEATED RED BLOOD CELLS # 0.1 10^3/ul (0.0-0.0); NUCLEATED RED BLOOD CELLS% 1.2 /100WBC (0.0-0.0); PLATELET COUNT 248 10^3/UL (140-415); RED BLOOD COUNT 3.42 10^6/ul (4.70-6.10); RED CELL DISTRIBUTION WIDTH 15.9 % (11.5-14.5); WHITE BLOOD COUNT 8.2 10^3/ul (4.8-10.8)
[2017-09-07 07:02] LABS: CALCIUM 7.7 mg/dl (8.4-10.2); CREATININE 1.27 mg/dl (0.61-1.24); POTASSIUM 3.4 mmol/L (3.5-5.1)
[2017-09-07] MEDS: PANTOPRAZOLE (EC) 40 MG TAB PO SCH ×2 (07:33→18:00)
[2017-09-07] MEDS: SUCRALFATE (100 MG/ML) 10ML CUP PO SCH ×3 (08:49→16:34)
[2017-09-07] MEDS: DOCUSATE SODIUM 100 MG CAP PO SCH (08:50)
[2017-09-07] MEDS: ALLOPURINOL 100 MG TAB PO SCH (08:50)
[2017-09-07] MEDS: FERROUS SULFATE (EC) 325 MG TAB PO SCH (08:50)
[2017-09-07] MEDS: CLOPIDOGREL 75 MG TAB PO SCH (08:50)
[2017-09-07] MEDS: BALSAM PERU/CASTOR OIL 60 GM TUBE TOP SCH (08:51)
[2017-09-07] MEDS: ERGOCALCIFEROL 50,000 UNIT CAP PO SCH (09:00)
--- NOTE | 2017-09-07 10:53 | PN ---
Date/Time of Note Date/Time of Note DATE: 09/07/17 TIME: 10:50 Assessment/Plan VTE Prophylaxis VTE Prophylaxis Intervention: SCD's Lines/Catheters IV Catheter Type (from Nrs): PICC Line Central line still needed: Yes Urinary Cath still in place: Yes Reason Cath still needed: urinary retention Assessment/Plan Chief Complaint/Hosp Course S: Patient out of ICU now, off of PPI and octreotide drips. No signs of any upper or lower GI bleeding. H/H stable. Tolerating soft diet. O: VS (see below) PE: GENERAL: Well developed, well nourished, alert & oriented x 3, in no acute distress HEAD: Normocephalic, atraumatic, no tenderness. EYES: Pupils equal reactive to light and accommodation, full extraocular movements, sclera clear, non-icteric, no discharge. EARS/NOSE AND THROAT: Ears normal, nose normal, oropharynx normal, oral membranes well hydrated without lesions. NECK: Supple, no masses, thyroid normal, JVP within normal limits, carotids normal without bruits. RESPIRATORY: Lungs clear to auscultation and percussion, no wheezing, no rubs CARDIOVASCULAR: Heart: Regular rate and rhythm, no murmurs, gallops or rubs. Peripheral pulses present within normal limits, no cyanosis, clubbing or edemas. No pulsatile abdominal mass ABD: Abdomen: Soft, non tenderness, non-distended, no hernias, no masses, no organomegaly, no ascites, no guarding, no rebound tenderness, normoactive bowel sounds. M/S: No lower extremity edema bilaterally NEURO: No focal deficits Assessment/Plan: 87 yo M with multiple hospitalizations in recent months, initially had gallstone pancreatitis, STEMI, now here with generalized weakness with hypovolemic shock 2/2 GI bleed. EGD with large duodenal ulcer with an adherent clot not amenable to intervention. 1. sudden onset hypovolemic shock -resolved now. 2/2 GIB from large duodenal ulcer, initially required PPI and octreotide drips, now off of these, hemoglobin stable. No signs of any overt bleeding presently. -Monitor H&H, transfuse blood to goal hgb >7 -On PPI now, follow-up GI recommendation -Advance diet per GI recommendations 2. MARCOS: likely prerenal from hypotension, improving. -cont IVFs 3. gout flare: Improving - cont home allopurinol 4. elevated trop: Patient recently treated for ST elevation [place], cardiology following, stress test unremarkable - holding asa given bleeding, cont plavix given stent -Follow cardiology recommendation 5. low albumin: repeat UA without proteinuria -Appreciate nutrition eval, follow the recommendation 6. subclinical hypothyroid: outpatient follow up 7. compression deformity: vit D low 8 days ago. started ergo appears pt seen by neurosurg during recent admit but note not yet available - monitor discharge planning: Follow-up PT eval Problems: Exam/Review of Systems Vital Signs Vitals Vital Signs Date Time Temp Pulse Resp B/P Pulse Ox O2 Delivery O2 Flow Rate FiO2 09/07/17 09:00 154/84 09/07/17 08:11 72 09/07/17 07:00 97.8 18 94 09/07/17 04:50 Room Air 09/04/17 17:55 2.0 09/04/17 05:52 21 Intake and Output 09/06/17 09/06/17 09/07/17 15:00 23:00 07:00 Intake Total 935 ml 625 ml Output Total 125 ml 400 ml Balance 810 ml 225 ml Results Result Diagram: 09/07/17 0536 09/07/17 0536 Results 24 hrs Laboratory Tests Test 09/06/17 13:01 09/06/17 17:46 09/07/17 05:36 Hemoglobin 9.7 L 10.3 L 10.3 L Hematocrit 27.9 L 29.9 L 29.9 L White Blood Count 8.2 Red Blood Count 3.42 #L Mean Corpuscular Volume 87.4 Mean Corpuscular Hemoglobin 30.1 Mean Corpuscular Hemoglobin Concent 34.4 Red Cell Distribution Width 15.9 H Platelet Count 248 # Mean Platelet Volume 10.2 Neutrophils % 62.1 Lymphocytes % 20.6 Monocytes % 8.5 Eosinophils % 6.2 Basophils % 0.2 Nucleated Red Blood Cells % 1.2 H Neutrophils # 5.1 Lymphocytes # 1.7 Monocytes # 0.7 Eosinophils # 0.5 Basophils # 0.0 Nucleated Red Blood Cells # 0.1 H Sodium Level 136 Potassium Level 3.4 L Chloride Level 111 H Carbon Dioxide Level 20 L Anion Gap 8 Blood Urea Nitrogen 23 H Creatinine 1.27 H Glucose Level 88 Calcium Level 7.7 L Medications Medications Current Medications Miscellaneous Information (Pending [facility] Order For Wound Care) This patient swan... PRN PRN XX WOUND CARE; Start 08/30/17 at 06:00 Nitroglycerin (Nitroglycerin (Sl Tab) 0.4 Mg) 1 tab Q5M PRN SL CHEST PAIN; Start 08/30/17 at 07:30 Acetaminophen (Tylenol Tab) 650 mg Q6H PRN PO PAIN LEVEL 1-3 OR FEVER Last administered on 09/02/17 10:20; Admin Dose 650 MG; Start 08/30/17 at 07:30 Morphine Sulfate (morphine) 2 mg Q4H PRN IV PAIN LEVEL 7-10; Start 08/30/17 at 07:30 Allopurinol (Zyloprim) 100 mg BID PO Last administered on 09/07/17 08:50; Admin Dose 100 MG; Start 08/30/17 at 09:00 Aspirin (Halfprin) 81 mg DAILY PO Last administered on 09/02/17 10:20; Admin Dose 81 MG; Start 08/30/17 at 09:00; Status Future Hold Atorvastatin Calcium (Lipitor) 80 mg DAILY@21 PO Last administered on 21:33; Admin Dose 80 MG; Start 08/30/17 at 21:00 Carvedilol (Coreg) 3.125 mg BID PO Last administered on 09/07/17 08:50; Admin Dose 3.125 MG; Start 08/30/17 at 09:00; Status Future hold Ferrous Sulfate (Ferrous Sulfate (Ec)) 325 mg DAILY PO Last administered on 08:50; Admin Dose 325 MG; Start 08/30/17 at 09:00 Ergocalciferol (Drisdol) 50,000 unit @09 PO Last administered on 09/07/17 09 :00; Admin Dose 50,000 UNIT; Start 08/31/17 at 09:00 IV Flush (NS 10 ml) 10 ml PRN PRN IV IV PROTOCOL; Start 09/03/17 at 11:30 Sucralfate (Carafate Susp) 1 gm QID PO Last administered on 09/07/17 08:49; Admin Dose 1 GM; Start 09/03/17 at 18:30 Clopidogrel Bisulfate (plaVIX) 75 mg DAILY PO Last administered on 09/07/17 08 :50; Admin Dose 75 MG; Start 09/03/17 at 18:45 Docusate Sodium (Colace) 100 mg BID PO Last administered on 09/07/17 08:50; Admin Dose 100 MG; Start 09/05/17 at 21:00 Pantoprazole (Protonix Tab) 40 mg BID@06,18 PO Last administered on 09/07/17 07:33; Admin Dose 40 MG; Start 09/06/17 at 18:00 MINA CALI Sep 07, 2017 10:53
[2017-09-07] MEDS ORDERED: hydrALAzine 20 MG INJ IV PRN (11:30)
--- NOTE | 2017-09-07 11:54 | PN ---
Date/Time of Note Date/Time of Note DATE: 09/07/17 TIME: 11:49 Assessment/Plan VTE Prophylaxis VTE Prophylaxis Intervention: SCD's Lines/Catheters IV Catheter Type (from Nrsg): PICC Line Central line still needed: Yes (meds) Urinary Cath still in place: Yes Reason Cath still needed: other (indicate) (monitor out-put) Assessment/Plan Chief Complaint/Hosp Course Assessment: Hematochezia EGD 2 cm active duodenal ulcer with a large firmly adherent clot No therapeutic intervention is the base of the clot is at least 10 mm wide Otherwise normal EGD Anemia NSTEMI CAD Recent PCI RCA HTN DM HX CHF Dementia Plan: Continue Protonix po BID Liquid Carafate Continue Plavix Close monitor transfuse for hemoglobin less than 8.5 D/C h/h q12- instead monitor daily Increase diet to Regular Patient seen in collaboration with Dr. Burgess Subjective: Course reviewed with nursing staff Patient interviewed and examined All labs, imaging and other results reviewed The patient continues to do well, no c/o hematemesis or hematochezia, h/h stable , tolerating diet well will increase to regular PHYSICAL EXAMINATION: GENERAL: Well developed, well nourished, alert & oriented x 3, in no acute distress SKIN: No lesions, no stigmata chronic liver disease, no evidence of bleeding diathesis LYMPHATIC: No palpable lymphadenopathy. HEAD: Normocephalic, atraumatic, no tenderness. EYES: Pupils equal reactive to light and accommodation, full extraocular movements, sclera clear, non-icteric, no discharge. EARS/NOSE AND THROAT: Ears normal, nose normal, oropharynx normal,. NECK: Supple, no masses, thyroid normal, CHEST: Inspection within normal limits. CARDIOVASCULAR: Heart: Regular rate and rhythm, no murmurs, RESPIRATORY: Lungs clear to auscultation and percussion, no wheezing, no rubs GASTROINTESTINAL AND LIVER: Abdomen: Soft, non tenderness, non-distended, no hernias, no masses, no organomegaly, no ascites, no guarding, no rebound tenderness, normoactive bowel sounds. Rectal: Deferred. GENITOURINARY: Male genitalia within normal limits. EXTREMITIES: No cyanosis, clubbing or edema. Problems: Exam/Review of Systems Vital Signs Vitals Vital Signs Date Time Temp Pulse Resp B/P Pulse Ox O2 Delivery O2 Flow Rate FiO2 09/07/17 11:02 97.5 74 20 167/81 99 09/07/17 04:50 Room Air 09/04/17 17:55 2.0 09/04/17 05:52 21 Intake and Output 09/06/17 09/06/17 09/07/17 14:59 22:59 06:59 Intake Total 950 ml 750 ml Output Total 125 ml 400 ml Balance 825 ml 350 ml Results Result Diagram: 09/07/17 0536 09/07/17 0536 Results 24 hrs Laboratory Tests Test 09/06/17 13:01 09/06/17 17:46 09/07/17 05:36 Hemoglobin 9.7 L 10.3 L 10.3 L Hematocrit 27.9 L 29.9 L 29.9 L White Blood Count 8.2 Red Blood Count 3.42 #L Mean Corpuscular Volume 87.4 Mean Corpuscular Hemoglobin 30.1 Mean Corpuscular Hemoglobin Concent 34.4 Red Cell Distribution Width 15.9 H Platelet Count 248 # Mean Platelet Volume 10.2 Neutrophils % 62.1 Lymphocytes % 20.6 Monocytes % 8.5 Eosinophils % 6.2 Basophils % 0.2 Nucleated Red Blood Cells % 1.2 H Neutrophils # 5.1 Lymphocytes # 1.7 Monocytes # 0.7 Eosinophils # 0.5 Basophils # 0.0 Nucleated Red Blood Cells # 0.1 H Sodium Level 136 Potassium Level 3.4 L Chloride Level 111 H Carbon Dioxide Level 20 L Anion Gap 8 Blood Urea Nitrogen 23 H Creatinine 1.27 H Glucose Level 88 Calcium Level 7.7 L Medications Medications Current Medications Miscellaneous Information (Pending Santyl Order For Wound Care) This patient swan... PRN PRN XX WOUND CARE; Start 08/30/17 at 06:00 Nitroglycerin (Nitroglycerin (Sl Tab) 0.4 Mg) 1 tab Q5M PRN SL CHEST PAIN; Start 08/30/17 at 07:30 Acetaminophen (Tylenol Tab) 650 mg Q6H PRN PO PAIN LEVEL 1-3 OR FEVER Last administered on 09/02/17t 10:20; Admin Dose 650 MG; Start 08/30/17 at 07:30 Morphine Sulfate (morphine) 2 mg Q4H PRN IV PAIN LEVEL 7-10; Start 08/30/17 at 07:30 Allopurinol (Zyloprim) 100 mg BID PO Last administered on 09/07/17 08:50; Admin Dose 100 MG; Start 08/30/17 at 09:00 Aspirin (Halfprin) 81 mg DAILY PO Last administered on 09/02/17 10:20; Admin Dose 81 MG; Start 08/30/17 at 09:00; Status Future Hold Atorvastatin Calcium (Lipitor) 80 mg DAILY@21 PO Last administered on 21:33; Admin Dose 80 MG; Start 08/30/17 at 21:00 Carvedilol (Coreg) 3.125 mg BID PO Last administered on 09/07/17 08:50; Admin Dose 3.125 MG; Start 08/30/17 at 09:00; Status Future hold Ferrous Sulfate (Ferrous Sulfate (Ec)) 325 mg DAILY PO Last administered on 08:50; Admin Dose 325 MG; Start 08/30/17 at 09:00 Ergocalciferol (Drisdol) 50,000 unit Tu@09 PO Last administered on 09/07/17 09 :00; Admin Dose 50,000 UNIT; Start 08/31/17 at 09:00 IV Flush (NS 10 ml) 10 ml PRN PRN IV IV PROTOCOL; Start 09/03/17 at 11:30 Sucralfate (Carafate Susp) 1 gm QID PO Last administered on 09/07/17 08:49; Admin Dose 1 GM; Start 09/03/17 at 18:30 Clopidogrel Bisulfate (plaVIX) 75 mg DAILY PO Last administered on 09/07/17 08 :50; Admin Dose 75 MG; Start 09/03/17 at 18:45 Docusate Sodium (Colace) 100 mg BID PO Last administered on 09/07/17 08:50; Admin Dose 100 MG; Start 09/05/17 at 21:00 Pantoprazole (Protonix Tab) 40 mg BID@,18 PO Last administered on 09/07/17 07:33; Admin Dose 40 MG; Start 09/06/17 at 18:00 Hydralazine HCl (Apresoline) 10 mg Q4H PRN IV ELEVATED BLOOD PRESSURE; Start 09/07/17 at 11:30 NOHEMI SIEGEL Sep 07, 2017 11:54 Allopurinol (Zyloprim) 100 mg BID PO Last administered on 09/07/17 08:50; Admin Dose 100 MG; Start 08/30/17 at 09:00 Aspirin (Halfprin) 81 mg DAILY PO Last administered on 09/02/17 10:20; Admin Dose 81 MG; Start 08/30/17 at 09:00; Status Future Hold Atorvastatin Calcium (Lipitor) 80 mg DAILY@21 PO Last administered on 21:33; Admin Dose 80 MG; Start 08/30/17 at 21:00 Carvedilol (Coreg) 3.125 mg BID PO Last administered on 09/07/17 08:50; Admin Dose 3.125 MG; Start 08/30/17 at 09:00; Status Future hold Ferrous Sulfate (Ferrous Sulfate (Ec)) 325 mg DAILY PO Last administered on 08:50; Admin Dose 325 MG; Start 08/30/17 at 09:00 Ergocalciferol (Drisdol) 50,000 unit Tu@09 PO Last administered on 09/07/17 09 :00; Admin Dose 50,000 UNIT; Start 08/31/17 at 09:00 IV Flush (NS 10 ml) 10 ml PRN PRN IV IV PROTOCOL; Start 09/03/17 at 11:30 Sucralfate (Carafate Susp) 1 gm QID PO Last administered on 09/07/17 08:49; Admin Dose 1 GM; Start 09/03/17 at 18:30 Clopidogrel Bisulfate (plaVIX) 75 mg DAILY PO Last administered on 09/07/17 08 :50; Admin Dose 75 MG; Start 09/03/17 at 18:45 Docusate Sodium (Colace) 100 mg BID PO Last administered on 09/07/17 08:50; Admin Dose 100 MG; Start 09/05/17 at 21:00 Pantoprazole (Protonix Tab) 40 mg BID@,18 PO Last administered on 09/07/17 07:33; Admin Dose 40 MG; Start 09/06/17 at 18:00 Hydralazine HCl (Apresoline) 10 mg Q4H PRN IV ELEVATED BLOOD PRESSURE; Start 09/07/17 at 11:30 NOHEMI SIEGEL Sep 07, 2017 11:54
[2017-09-07] MEDS: ALBUTEROL/IPRATROPIUM (NEB) 3 ML AMP HHN PRN (12:14)
[2017-09-07 12:46] LABS: HEMATOCRIT 33.4 % (42.0-52.0); HEMOGLOBIN 11.6 g/dl (14.0-18.0)
--- NOTE | 2017-09-07 13:52 | CONS ---
Date/Time of Note Date/Time of Note DATE: 09/07/17 TIME: 13:51 Consult Date/Type/Reason Admit Date/Time Aug 30, 2017 at 01:20 Initial Consult Date 08/31/17 Type of Consultation: card Ordering Provider: LORI MIRANDA MD Subjective cardiology follow up note: S: D/W staff and rhythm was reviewed. d/W physicians pt s/p EGD on 09/03/17 which shows significant ulcer. pt with no chest pain or pressure he denies any more bleeding now. O; General: no acute distress HEENT: NC/AT. pupils are equal. round. s/p NG tube in place. NECK: NO JVD. no stridor. CV: RRR. systolic murmur; no gallop or rubs. PULM: no wheezing or rhonchi. GI: SOFT, NT, ND, no rebound or guarding Extremity: trace B/L LE edema. no clubbing. neuro: awake and alert, OX2. Psych: calm and pleasant rectal: deferred ECHO REVIEWED. ECG REVIEWED. Objective Vital Signs Date Time Temp Pulse Resp B/P Pulse Ox O2 Delivery O2 Flow Rate FiO2 09/07/17: 98 3.0 09/07/17 12:14 81 22 Nasal Cannula 09/07/17 11:52 153/82 09/07/17 11:02 97.5 09/04/17 05:52 21 Intake and Output 09/06/17 09/06/17 09/07/17 15:00 23:00 07:00 Intake Total 935 ml 625 ml Output Total 125 ml 400 ml Balance 810 ml 225 ml Results/Medications Result Diagram: 09/07/17 1222 09/07/17 0536 Results 24 hrs Laboratory Tests Test 09/06/17 17:46 09/07/17 05:36 09/07/17 12:22 Hemoglobin 10.3 L 10.3 L 11.6 L Hematocrit 29.9 L 29.9 L 33.4 L White Blood Count 8.2 Red Blood Count 3.42 #L Mean Corpuscular Volume 87.4 Mean Corpuscular Hemoglobin 30.1 Mean Corpuscular Hemoglobin Concent 34.4 Red Cell Distribution Width 15.9 H Platelet Count 248 # Mean Platelet Volume 10.2 Neutrophils % 62.1 Lymphocytes % 20.6 Monocytes % 8.5 Eosinophils % 6.2 Basophils % 0.2 Nucleated Red Blood Cells % 1.2 H Neutrophils # 5.1 Lymphocytes # 1.7 Monocytes # 0.7 Eosinophils # 0.5 Basophils # 0.0 Nucleated Red Blood Cells # 0.1 H Sodium Level 136 Potassium Level 3.4 L Chloride Level 111 H Carbon Dioxide Level 20 L Anion Gap 8 Blood Urea Nitrogen 23 H Creatinine 1.27 H Glucose Level 88 Calcium Level 7.7 L Medications Current Medications Miscellaneous Information (Pending Santyl Order For Wound Care) This patient swan... PRN PRN XX WOUND CARE; Start 08/30/17 at 06:00 Nitroglycerin (Nitroglycerin (Sl Tab) 0.4 Mg) 1 tab Q5M PRN SL CHEST PAIN; Start 08/30/17 at 07:30 Acetaminophen (Tylenol Tab) 650 mg Q6H PRN PO PAIN LEVEL 1-3 OR FEVER Last administered on 09/02/17 10:20; Admin Dose 650 MG; Start 08/30/17 at 07:30 Morphine Sulfate (morphine) 2 mg Q4H PRN IV PAIN LEVEL 7-10; Start 08/30/17 at 07:30 Allopurinol (Zyloprim) 100 mg BID PO Last administered on 09/07/17 08:50; Admin Dose 100 MG; Start 08/30/17 at 09:00 Aspirin (Halfprin) 81 mg DAILY PO Last administered on 09/02/17 10:20; Admin Dose 81 MG; Start 08/30/17 at 09:00; Status Future Hold Atorvastatin Calcium (Lipitor) 80 mg DAILY@21 PO Last administered on 21:33; Admin Dose 80 MG; Start 08/30/17 at 21:00 Carvedilol (Coreg) 3.125 mg BID PO Last administered on 09/07/17 08:50; Admin Dose 3.125 MG; Start 08/30/17 at 09:00; Status Future hold Ferrous Sulfate (Ferrous Sulfate (Ec)) 325 mg DAILY PO Last administered on 08:50; Admin Dose 325 MG; Start 08/30/17 at 09:00 Ergocalciferol (Drisdol) 50,000 unit @ PO Last administered on 09/07/17 09 :00; Admin Dose 50,000 UNIT; Start 08/31/17 at 09:00 IV Flush (NS 10 ml) 10 ml PRN PRN IV IV PROTOCOL; Start 09/03/17 at 11:30 Sucralfate (Carafate Susp) 1 gm QID PO Last administered on 09/07/17 12:50; Admin Dose 1 GM; Start 09/03/17 at 18:30 Clopidogrel Bisulfate (plaVIX) 75 mg DAILY PO Last administered on 09/07/17 08 :50; Admin Dose 75 MG; Start 09/03/17 at 18:45 Docusate Sodium (Colace) 100 mg BID PO Last administered on 09/07/17 08:50; Admin Dose 100 MG; Start 09/05/17 at 21:00 Pantoprazole (Protonix Tab) 40 mg BID@,18 PO Last administered on 09/07/17 07:33; Admin Dose 40 MG; Start 09/06/17 at 18:00 Hydralazine HCl (Apresoline) 10 mg Q4H PRN IV ELEVATED BLOOD PRESSURE Last administered on 09/07/17 11:46; Admin Dose 10 MG; Start 09/07/17 at 11:30 Assessment/Plan Chief Complaint/Hosp Course 1. NSTEMI: lexiscan does not show any significant reversible ischemia. 2. CAD: S/ P inferior STEMI, S/P PCI RCA 3. upper GI bleed/ PUD 4. HTN 5/ DM 6. HX CHF: STABLE NOW 7. Dementia 8 hypo Mg: corrected now 9. CKD 10. hypovolemic shock 11. severe anemia due to GI bleed 12. preop evaluation for endoscopy 13. MARCOS: probably ATN due to hypotension and shock Recommendations: replace lytes prn cont plavix given recent STEMI. PCI But I will hold asa for now, given his active bleeding/ significant PUD/ Bleeding risk for now. off of lovenox lexiscan shows no reversible ischemia inc coreg as tolerated. f/u renal fx. For his referral. We will continue to follow along with you. HAYDEN WAGNER MD [facility] Problems: HAYDEN WAGNER MD Sep 07, 2017 13:52
--- NOTE | 2017-09-07 13:55 | PDOCDIS ---
Discharge Instructions CONDITION Patient Condition: Stable HOME CARE INSTRUCTIONS: Special Diet: SOFT DIET ACTIVITY: Activity Restrictions: Slowly Increase Activity FOLLOW UP/APPOINTMENTS Follow-up Plan Please take your medications, see your doctor in the clinic in 1 week. MINA CALI Sep 07, 2017 13:55
[2017-09-07] MEDS ORDERED: CARAS PO (13:56)
[2017-09-07] MEDS ORDERED: CARV3.1260 PO (13:56)
--- NOTE | 2017-09-07 14:10 | DS ---
Date/Time of Note Date/Time of Note DATE: 09/07/17 TIME: 13:58 Discharge Summary Admission/Discharge Info Admit Date/Time Aug 30, 2017 at 01:20 Discharge Date/Time Discharge Diagnosis 1. sudden onset hypovolemic shock -resolved now. 2/2 GIB from large duodenal ulcer 2. MARCOS: likely prerenal from hypotension, resolved 3. gout flare: Improving - cont home allopurinol 4. elevated trop: Patient recently treated for ST elevation MS, cardiology following, stress test unremarkable - holding asa given bleeding, cont plavix given stent 5. low albumin: repeat UA without proteinuria 6. subclinical hypothyroid: outpatient follow up 7. compression deformity: vit D low 8 days ago. started ergo Patient Condition: Stable Hospital Course 87-year-old with a history of CAD, status post PCI with stent to RCA, gallstone pancreatitis complicated by postop abscess status post drainage, ESBL E. coli bacteremia presents with generalized weakness. Patient was admitted here 3 weeks prior to this admission as well after he initially presented with weakness /fatigue and abnormal EKG then. She was found to have a STEMI and underwent emergent cardiac cath with PCI with stent to RCA for 100% occlusion. During last hospitalization, patient had a stridor thought to be from [place]. He was evaluated by ENT was not was treated with steroid. When patient presented to the ER at this time, she was noted to be hypotensive with a systolic blood pressure in the 80s. BP responded to fluid challenge. Labs showed a sodium of 130, creatinine 1.39, lipase 375, WBC 14,000. Chest x-ray shows left lung atelectasis versus early consolidation. So pt was admitted, seen by CV and GI teams during this stay. Pt was found with sudden onset hypovolemic shock - resolved now, this was secondary to GIB from large duodenal ulcer. GI team recommended medical mngt for this, and pt initially was placed on octreotide and PPI IV drips. Pt 's H/H was low on admission, but after pRBC transfusion given, pt 's H/H remained stable. Pt's dark stools also lessened in intensity and eventually subsided. Pt was able to ambulate w/ assistance, tolerate advancement of diet, and will be discharged to day in improved condition with 24 /7 HH nursing and HHPT. See below for full list of d/c meds. Pt instructed to NOT take ASA at this time until f/u with PMD, but needs to resume Plavix b/c of his recent PCI placement. S: Patient out of ICU now, off of PPI and octreotide drips. No signs of any upper or lower GI bleeding. H/H stable. Tolerating soft diet. O: VS (see below) PE: GENERAL: Well developed, well nourished, alert & oriented x 3, in no acute distress HEAD: Normocephalic, atraumatic, no tenderness. EYES: Pupils equal reactive to light and accommodation, full extraocular movements, sclera clear, non-icteric, no discharge. EARS/NOSE AND THROAT: Ears normal, nose normal, oropharynx normal, oral membranes well hydrated without lesions. NECK: Supple, no masses, thyroid normal, JVP within normal limits, carotids normal without bruits. RESPIRATORY: Lungs clear to auscultation and percussion, no wheezing, no rubs CARDIOVASCULAR: Heart: Regular rate and rhythm, no murmurs, gallops or rubs. Peripheral pulses present within normal limits, no cyanosis, clubbing or edemas. No pulsatile abdominal mass ABD: Abdomen: Soft, non tenderness, non-distended, no hernias, no masses, no organomegaly, no ascites, no guarding, no rebound tenderness, normoactive bowel sounds. M/S: No lower extremity edema bilaterally NEURO: No focal deficits discharge planning: Follow-up PT eval Home Meds Active Scripts Carvedilol* (Carvedilol*) 3.125 Mg Tablet, 6.25 MG PO BID, #60 TAB 1 Refill Prov:MINA CALI S. 09/07/17 Sucralfate* (Carafate*) 1 Gm/10 Ml Susp, 1 GM PO QID, #120 2 Refills Prov:MINA CALI S. 09/07/17 Docusate Sodium (Dok) 100 Mg Capsule, 100 MG PO Q12H for 7 Days, #10 CAP OTC Prov:REZA ARZATE MD 08/25/17 Acetaminophen (MAPAP) 325 Mg Tablet, 650 MG PO Q6H Y for PAIN LEVEL 1-3 OR FEVER for 1 Day, #1 TAB OTC Prov:REZA ARZATE MD 08/25/17 [prednisone taper] No Conflict Check Prov:LORI MIRANDA MD 08/17/17 Atorvastatin* (Atorvastatin*) 80 Mg Tablet, 80 MG PO DAILY@21 for 30 Days, #30 TAB Prov:LORI MIRANDA MD 08/17/17 Clopidogrel Bisulfate (Clopidogrel) 75 Mg Tablet, 75 MG PO DAILY for 30 Days, # 30 TAB Prov:LORI MIRANDA MD 08/17/17 Pantoprazole* (Pantoprazole*) 40 Mg Tablet.dr, 40 MG PO BID for 60 Days, #120 Prov:LORI MIRANDA MD 03/21/17 Reported Medications Ferrous Sulfate* (Ferrous Sulfate*) 325 Mg Tabec, 325 MG PO DAILY, TAB 07/21/17 Allopurinol* (Zyloprim*) 100 Mg Tablet, 100 MG PO BID 02/17/13 Discontinued Scripts Aspirin* (Aspirin* EC) 81 Mg Tablet.dr, 81 MG PO DAILY for 30 Days, #30 TAB Prov:LORI MIRANDA MD 08/17/17 Carvedilol* (Carvedilol*) 3.125 Mg Tablet, 3.125 MG PO BID for 30 Days, #60 TAB Prov:LORI MIRANDA MD 08/17/17 Follow-up Plan Please take your medications, see your doctor in the clinic in 1 week. Primary Care Provider Tasha Quesada MD Time spent on discharge: > 30 minutes Pending Labs Laboratory Tests Test 09/06/17 17:46 09/07/17 05:36 09/07/17 12:22 Hemoglobin 10.3g/dl (14.0-18.0) 10.3g/dl (14.0-18.0) 11.6g/dl (14.0-18.0) Hematocrit 29.9% (42.0-52.0) 29.9% (42.0-52.0) 33.4% (42.0-52.0) White Blood Count 8.210^3/ul (4.8-10.8) Red Blood Count 3.4210^6/ul (4.70-6.10) Mean Corpuscular Volume 87.4fl (82.0-101.0) Mean Corpuscular Hemoglobin 30.1pg (29.0-33.0) Mean Corpuscular Hemoglobin Concent 34.4g/dl (32.0-37.0) Red Cell Distribution Width 15.9% (11.5-14.5) Platelet Count 75408^3/UL (140-415) Mean Platelet Volume 10.2fl (7.4-10.4) Neutrophils % 62.1% (39.0-77.0) Lymphocytes % 20.6% (15.0-51.0) Monocytes % 8.5% (0.0-11.0) Eosinophils % 6.2% (0.0-7.0) Basophils % 0.2% (0.0-2.0) Nucleated Red Blood Cells % 1.2/100WBC (0.0-0.0) Neutrophils # 5.110^3/ul (1.6-7.5) Lymphocytes # 1.710^3/ul (0.8-2.9) Monocytes # 0.710^3/ul (0.3-0.9) Eosinophils # 0.510^3/ul (0.0-0.5) Basophils # 0.010^3/ul (0.0-0.1) Nucleated Red Blood Cells # 0.110^3/ul (0.0-0.0) Sodium Level 136mmol/L (135-144) Potassium Level 3.4mmol/L (3.5-5.1) Chloride Level 111mmol/L (97-110) Carbon Dioxide Level 20mmol/L (21-31) Anion Gap 8 (8-16) Blood Urea Nitrogen 23mg/dl (7-20) Creatinine 1.27mg/dl (0.61-1.24) Glucose Level 88mg/dl (70-220) Calcium Level 7.7mg/dl (8.4-10.2) MINA CALI Sep 07, 2017 14:09
== END 2017-09-07 18:20 | disposition home or self-care (01) | DRG 280 ==
LOC: E/R 21:52 → MS4 08-30 01:20 → ICU 09-02 13:02 → TEL 09-06 15:08
PROVIDERS: ADMIT Internal Medicine; ATTEND Internal Medicine
PROC: 02HV33Z Insertion of Infusion Device into Superior Vena Cava, Percutaneous Approach (ICD-10-PCS; 2017-09-03)
PROC: 0DJ08ZZ Inspection of Upper Intestinal Tract, Via Natural or Artificial Opening Endoscopic (ICD-10-PCS; principal; 2017-09-03 20:00)
DX: I21.4 Non-ST elevation (NSTEMI) myocardial infarction (principal); K85.90 Acute pancreatitis without necrosis or infection, unspecified; R57.1 Hypovolemic shock; N17.9 Acute kidney failure, unspecified; I95.9 Hypotension, unspecified; E87.1 Hypo-osmolality and hyponatremia; E11.22 Type 2 diabetes mellitus with diabetic chronic kidney disease; K26.4 Chronic or unspecified duodenal ulcer with hemorrhage; F03.90 Unspecified dementia, unspecified severity, without behavioral disturbance, psychotic disturbance, mood disturbance, and anxiety; E88.09 Other disorders of plasma-protein metabolism, not elsewhere classified; K92.1 Melena; J98.11 Atelectasis; E86.0 Dehydration; D64.9 Anemia, unspecified; I25.10 Atherosclerotic heart disease of native coronary artery without angina pectoris; R62.7 Adult failure to thrive; M10.9 Gout, unspecified; N18.9 Chronic kidney disease, unspecified; R29.810 Facial weakness; E03.9 Hypothyroidism, unspecified; I12.9 Hypertensive chronic kidney disease with stage 1 through stage 4 chronic kidney disease, or unspecified chronic kidney disease; Z95.5 Presence of coronary angioplasty implant and graft
CPT/HCPCS: 36415; 36430; 36569; 70450; 70553; 71010; 74176; 76937; 78452; 80048; 80053; 81001; 81003; 82533; 82550; 82553; 82962; 83605; 83690; 83735; 83930; 83935; 84100; 84300; 84436; 84439; 84443; 84484; 85014; 85018; 85025; 85610; 85730; 86850; 86900; 86901; 86920; 87040; 87081; 87086; 93005; 93017; 93306; 94640; 94664; 97110; 97162; 97164; 97166; 97530; J1940; A9500; A9505; C9113; J0360; J1644; J1650; J1956; J2270; J2785; J3475; J7030; J7042; J7060; J7512; P9016

== ENCOUNTER 2017-09-13 09:42 | Inpatient (IN) | payer OTHER ==
[~2017-09-13] VITALS: Ht 160 cm; Wt 65.9 kg
[~2017-09-13 09:42] MED LIST changes: -ASPI-664 PO; +CARAS PO
[2017-09-13] MEDS ORDERED: SOD CHLORIDE 0.9% 1,000 ML IV STA (10:29)
[2017-09-13 10:55] LABS: BASOPHILS % 0.3 % (0.0-2.0); EOSINOPHILS # 0.3 10^3/ul (0.0-0.5); EOSINOPHILS % 3.1 % (0.0-7.0); HEMATOCRIT 37.1 % (42.0-52.0); HEMOGLOBIN 12.4 g/dl (14.0-18.0); LYMPHOCYTES # 1.8 10^3/ul (0.8-2.9); LYMPHOCYTES % 19.4 % (15.0-51.0); MEAN CORPUSCULAR HEMOGLOBIN 29.7 pg (29.0-33.0); MEAN CORPUSCULAR HGB CONC 33.4 g/dl (32.0-37.0); MEAN CORPUSCULAR VOLUME 88.8 fl (82.0-101.0); MEAN PLATELET VOLUME 10.4 fl (7.4-10.4); MONOCYTE # 1.1 10^3/ul (0.3-0.9); MONOCYTES % 11.6 % (0.0-11.0); NEUTROPHIL # 5.9 10^3/ul (1.6-7.5); NEUTROPHILS % 64.4 % (39.0-77.0); PLATELET COUNT 319 10^3/UL (140-415); RED BLOOD COUNT 4.18 10^6/ul (4.70-6.10); RED CELL DISTRIBUTION WIDTH 16.1 % (11.5-14.5); WHITE BLOOD COUNT 9.1 10^3/ul (4.8-10.8)
--- NOTE | 2017-09-13 11:09 | RADRPT ---
PROCEDURE: XR Chest. CLINICAL INDICATION: Altered Mental Status TECHNIQUE: Single frontal view of the chest was obtained COMPARISON: 09/03/2017 FINDINGS: Atherosclerotic changes are seen in the aortic arch. Heart remains mildly enlarged with tortuosity of the descending thoracic aorta. There has been interval removal of the enteric feeding tube and line. A 4 mm granuloma is again seen in the right upper lobe. The lungs are otherwise clear. There is no pleural effusion or pneumothorax. The bones and soft tissue show no acute change. IMPRESSION: 1. Interval removal of the enteric feeding tube and left PICC line. 2. Stable 4 mm granuloma in the right upper lobe. 3. The heart remains mildly enlarged with tortuosity of the descending thoracic aorta. RPTAT:AAJJ Physician Ana Date Time Electronically viewed and signed by Dean Shanks Physician on 09/13/2017 11:09 /
[2017-09-13 11:21] LABS: ALBUMIN 2.7 g/dl (3.3-4.9); ALBUMIN/GLOBULIN RATIO 0.9; BILIRUBIN,INDIRECT 0.9 mg/dl (0-1.1); BILIRUBIN,TOTAL 0.9 mg/dl (0.2-1.3); CALCIUM 6.9 mg/dl (8.4-10.2); CREATININE 1.05 mg/dl (0.61-1.24); TOTAL PROTEIN 5.7 g/dl (6.1-8.1)
[2017-09-13 11:33] LABS: TROPONIN-I 0.066 ng/ml (0.00-0.12)
[2017-09-13 11:38] LABS: T3 UPTAKE 38.8 % (23.5-40.5)
[2017-09-13] MEDS ORDERED: SODIUM CHLORIDE 0.9% 1L BAG IV* STA (11:55)
[2017-09-13 12:05] LABS: POTASSIUM 2.7 mmol/L (3.5-5.1)
[2017-09-13] MEDS ORDERED: POTASSIUM CHLORIDE (SR) 20 MEQ TAB PO STA ×2 (12:08→13:56)
[2017-09-13 13:34] LABS: URINE BLOOD (Dip) POC 1+ (NEGATIVE)
[2017-09-13 13:38] VITALS: TEMP 98.1
[2017-09-13 13:47] LABS: ADD UMIC YES; UR ASCORBIC ACID NEGATIVE (NEGATIVE); UR BILIRUBIN (Dip) NEGATIVE (NEGATIVE); UR BLOOD (Dip) 1+ mg/dL (NEGATIVE); UR CLARITY CLEAR (CLEAR); UR COLOR YELLOW (YELLOW); UR GLUCOSE (Dip) NEGATIVE (NEGATIVE); UR KETONES (Dip) NEGATIVE (NEGATIVE); UR LEUKOCYTE ESTERASE (Dip) NEGATIVE Leu/ul (NEGATIVE); UR NITRITE (Dip) NEGATIVE (NEGATIVE); UR RBC 0 /HPF (0-5); UR SPECIFIC GRAVITY (Dip) 1.008 (1.003-1.030); UR TOTAL PROTEIN (Dip) NEGATIVE (NEGATIVE); UR UROBILINOGEN (Dip) 1+ mg/dL (NEGATIVE)
[2017-09-13] MEDS ORDERED: ONDANSETRON 4 MG INJ IV PRN ×2 (14:00→16:00)
[2017-09-13] MEDS ORDERED: ACETAMINOPHEN 325 MG TAB PO PRN ×2 (14:00→16:00)
--- NOTE | 2017-09-13 14:15 | ERD ---
ER Documentation Chief Complaint Chief Complaint dizziness today HPI This is an 87-year-old gentleman who presents with family members. The patient has generalized weakness. He has not really eaten over the past 48 hours. The family states that he is weak and unable to ambulate. No report of recent fevers or illness. The patient had a recent hospitalization with multiple medical issues including hypotension that had resolved. ROS All systems reviewed and are negative except as per history of present illness. Medications Home Meds Active Scripts Carvedilol* (Carvedilol*) 3.125 Mg Tablet, 6.25 MG PO BID, #60 TAB 1 Refill Prov:MINA CALI S. 09/07/17 Sucralfate* (Carafate*) 1 Gm/10 Ml Susp, 1 GM PO QID, #120 2 Refills Prov:MINA CALI S. 09/07/17 Docusate Sodium (Dok) 100 Mg Capsule, 100 MG PO Q12H for 7 Days, #10 CAP OTC Prov:REZA ARZATE MD 08/25/17 Acetaminophen (MAPAP) 325 Mg Tablet, 650 MG PO Q6H Y for PAIN LEVEL 1-3 OR FEVER for 1 Day, #1 TAB OTC Prov:REZA ARZATE MD 08/25/17 [prednisone taper] No Conflict Check Prov:LORI MIRANDA MD 08/17/17 Atorvastatin* (Atorvastatin*) 80 Mg Tablet, 80 MG PO DAILY@21 for 30 Days, #30 TAB Prov:LORI MIRANDA MD 08/17/17 Clopidogrel Bisulfate (Clopidogrel) 75 Mg Tablet, 75 MG PO DAILY for 30 Days, # 30 TAB Prov:LORI MIRANDA MD 08/17/17 Pantoprazole* (Pantoprazole*) 40 Mg Tablet.dr, 40 MG PO BID for 60 Days, #120 Prov:LORI MIRANDA MD 03/21/17 Reported Medications Ferrous Sulfate* (Ferrous Sulfate*) 325 Mg Tabec, 325 MG PO DAILY, TAB 07/21/17 Allopurinol* (Zyloprim*) 100 Mg Tablet, 100 MG PO BID 02/17/13 Discontinued Scripts Aspirin* (Aspirin* EC) 81 Mg Tablet.dr, 81 MG PO DAILY for 30 Days, #30 TAB Prov:LORI MIRANDA MD 08/17/17 Carvedilol* (Carvedilol*) 3.125 Mg Tablet, 3.125 MG PO BID for 30 Days, #60 TAB Prov:LORI MIRANDA MD 08/17/17 Allergies Allergies: Coded Allergies: No Known Drug Allergies (Verified Allergy, Unknown, 08/30/17) PMhx/Soc History of Surgery: Yes (GALLBLADDER REMOVAL 6MONTHS,LEFT EYE SURGERY 1YR, STENT 3WEEKS [facility]) Anesthesia Reaction: No Hx Neurological Disorder: No Hx Respiratory Disorders: No Hx Cardiac Disorders: Yes (STENT 3 WEEKS AGO IN [facility]) Hx Psychiatric Problems: No Hx Miscellaneous Medical Probl: Yes (pls see EMR) Hx Alcohol Use: No Hx Substance Use: No Hx Tobacco Use: No Smoking Status: Never smoker FmHx Family History: No diabetes Physical Exam Vitals Vital Signs Date Time Temp Pulse Resp B/P Pulse Ox O2 Delivery O2 Flow Rate FiO2 09/13/17 13:38 98.1 75 20 151/71 98 Room Air 09/13/17 09:45 98.9 96 18 132/73 98 Physical Exam General: Well developed, well nourished, no acute distress Head: Normocephalic, atraumatic. Eyes: Pupils equally reactive, EOM intact ENT: Moist mucous membranes Neck: Supple, no lymphadenopathy Respiratory: Lungs clear bilaterally, no distress Cardiovascular: RRR, no murmurs, rubs, or gallops Abdominal: Soft, non-tender, non-distended, no peritoneal signs : Deferred MSK: No edema, no unilateral swelling, 5/5 strength though generalized weakness is noted Neurologic: Alert and oriented, moving all extremities, normal speech, no focal weakness, no cerebellar signs Skin: No rash Psych: Normal mood Result Diagram: 09/13/17 1030 09/13/17 1030 Results 24 hrs Laboratory Tests Test 09/13/17 10:30 09/13/17 13:00 09/13/17 13:20 09/13/17 13:33 White Blood Count 9.110^3/ul Red Blood Count 4.1810^6/ul Hemoglobin 12.4g/dl Hematocrit 37.1% Mean Corpuscular Volume 88.8fl Mean Corpuscular Hemoglobin 29.7pg Mean Corpuscular Hemoglobin Concent 33.4g/dl Red Cell Distribution Width 16.1% Platelet Count 58326^3/UL Mean Platelet Volume 10.4fl Neutrophils % 64.4% Lymphocytes % 19.4% Monocytes % 11.6% Eosinophils % 3.1% Basophils % 0.3% Nucleated Red Blood Cells % 0.0/100WBC Neutrophils # 5.910^3/ul Lymphocytes # 1.810^3/ul Monocytes # 1.110^3/ul Eosinophils # 0.310^3/ul Basophils # 0.010^3/ul Nucleated Red Blood Cells # 0.010^3/ul Sodium Level 138mmol/L Potassium Level 2.7mmol/L Chloride Level 103mmol/L Carbon Dioxide Level 26mmol/L Anion Gap 12 Blood Urea Nitrogen 13mg/dl Creatinine 1.05mg/dl Glucose Level 109mg/dl Lactic Acid Level 2.3mmol/L 1.3mmol/L Calcium Level 6.9mg/dl Total Bilirubin 0.9mg/dl Direct Bilirubin 0.00mg/dl Indirect Bilirubin 0.9mg/dl Aspartate Amino Transf (AST/SGOT) 86IU/L Alanine Aminotransferase (ALT/SGPT) 76IU/L Alkaline Phosphatase 77IU/L Troponin I 0.066ng/ml Total Protein 5.7g/dl Albumin 2.7g/dl Globulin 3.00g/dl Albumin/Globulin Ratio 0.90 Free Thyroxine Index 3.96ug/ml Thyroxine (T4) 10.2ug/dl Triiodothyronine (T3) Uptake 38.8% Urine Color YELLOW Urine Clarity CLEAR Urine pH 6.0 Urine Specific [place] 1.008 Urine Ketones NEGATIVEmg/dL Urine Nitrite NEGATIVEmg/dL Urine Bilirubin NEGATIVEmg/dL Urine Urobilinogen 1+mg/dL Urine Leukocyte Esterase NEGATIVELeu/ul Urine Microscopic RBC 0/HPF Urine Microscopic WBC 1/HPF Urine Hemoglobin 1+mg/dL Urine Glucose NEGATIVEmg/dL Urine Total Protein NEGATIVEmg/dl Bedside Urine pH (LAB) 6.5 Bedside Urine Protein (LAB) Trace Bedside Urine Glucose (UA) Negative Bedside Urine Ketones (LAB) Negative Bedside Urine Blood 1+ Bedside Urine Nitrite (LAB) Negative Bedside Urine Leukocyte Esterase (L Negative Current Medications Medications (Trade) Dose Ordered Sig/Karthikeyan Route PRN Reason Start Time Stop Time Status Last Admin Dose Admin Sodium Chloride (NS) 1,000 ml @ 1,000 mls/hr Q1H STAT IV 09/13/17 10:29 09/13/17 11:28 DC 09/13/17 10:51 Sodium Chloride (NS) 1,640 ml BOLUS OVER 2 HOURS STAT IV* 09/13/17 11:55 09/13/17 11:57 DC 09/13/17 12:22 Potassium Chloride (Klor-Con 20) 40 meq ONCE STAT PO 09/13/17 12:08 09/13/17 12:09 DC 09/13/17 12:23 Ondansetron HCl (Zofran Inj) 4 mg BRIDGE ORDER PRN IV NAUSEA AND/OR VOMITING 09/13/17 14:00 09/14/17 13:59 Acetaminophen (Tylenol Tab) 650 mg ER BRIDGE PRN PO MILD PAIN/FEVER 09/13/17 14:00 09/14/17 13:59 Procedures/MDM EKG, MONITORS, & DIAGNOSTIC IMAGING: EKG: I reviewed and interpreted a 12-lead EKG. Rhythm: Normal sinus rhythm Ectopy: None Intervals: No abnormalities ST segments: No elevations or depressions T waves: No contiguous inversions Chest x-ray: I reviewed and interpreted a 1 view of the chest Mediastinum: No enlargement Cardiac silhouette: No cardiomegaly Airspace: Clear lung blue bilaterally without evidence of pneumothorax Bones: No evidence of fracture LAB INTERPRETATION: The patient has hypokalemia, nonspecific transaminitis and lactic acid elevation that is clearing MEDICAL DECISION MAKING: The patient presents with generalized weakness. A very broad differential exists including viral syndrome, dehydration among others. Sepsis screening will be initiated. Low concern for stroke. Patient has no head injury. ER COURSE: His laboratory and vital signs do not reveal Sirs criteria. And no evidence of focal source. No diagnostic criteria of sepsis. No focal source. No indication for antibiotics. Influenza negative. Urinalysis negative, chest x- ray normal. No evidence of acute intra-abdominal process. The patient may just be dehydrated. Oral potassium repletion initiated. The patient was given IV fluids. The patient's lactic acid is cleared. However, given the patient's age and lactic acidosis, sepsis screening will be initiated, inpatient hospitalization for culture monitoring would be reasonable. Consideration for conversation about hospice and goals of care would be reasonable and can occur on an inpatient basis. I kept the patient and/or family informed of laboratory and diagnostic imaging results throughout the emergency room course. DISPOSITION PLAN: Medical surgical admission CONSULTATION: Accepting care team and consultations: I discussed the current laboratory data, diagnostic imaging and emergency care provided. Admitting team: Dr Morris Admitting team indication: Insurance directed Departure Diagnosis: Primary Impression: Lactic acidosis Additional Impressions: Dehydration Hypokalemia Moderate dehydration Condition: Stable JESSE FITZGERALD MD Sep 13, 2017 14:15
[2017-09-13 15:36] VITALS: PULSE 70
[2017-09-13] MEDS ORDERED: ONDANSETRON 4 MG TAB PO PRN (16:00)
[2017-09-13] MEDS ORDERED: NACL 0.9% 3 ML SYG IV SCH (16:00)
--- NOTE | 2017-09-13 16:05 | HP ---
Date/Time of Note Date/Time of Note DATE: 09/13/17 TIME: 16:04 Assessment/Plan VTE Prophylaxis VTE Prophylaxis Intervention: SCD's Assessment/Plan Assessment/Plan 87 yo M with pmhx notable for recent STEMI sp PCI, recent large GIB 2/2 DU here for fatigue. Labs notable for mild lactic acidosis and significant hypokalemia and hypomagnesemia, etio of which are unclear. #electrolyte derangement: etio unclear. Consider decreased PO intake but given pt's normal renal function suspect he should be able to compensate? pt not on any diuretics. Calcium not markedly deranged when adjusted for low albumin. He' s only been on a high dose PPI for a few months also given his recent large GIB it seems high dose PPI therapy is indicated at this time. Family does not report diarrhea . No reason for refeeding. Consider RTA/Bartters or Gitlemans -check urine K and Mg both spot and 24 hours to eval for renal losses -aggressive repletion #Lactic acidosis: resolved after gentle fluids #poor PO: ST and RD eval #recent STEMI: cont plavix, bb, statin (asa on hold for GIB) #recent GIB: cont PPI. May need to talk to GI about PPI given electrolyte derangement #gout: cont allopurinol DVT prophx with SCDs only given recent GIB HPI/ROS Admit Date/Time Admit Date/Time Hx of Present Illness CC feels unwell HPI 87 yo M well known to me from multiple admissions over the past few mos. Most recently here 11.27-12.5. Had presented with hypotension possible of iatrogenic origin. During his stay went into hypovolemic shock from GIB from large duodenal ulcer which was managed medically. Given recent hx of STEMI and low + troponin, pt also underwent a stress test which was unremarkable. Since discharge, daughter reports pt's appetite at home has been poor and his energy level has been low. The visiting RN arranged by CM only came out one time and the PT only came out 1 time as well. Given his low energy and c/o feeling overall "unwell" daughter brought pt back to the hospital. No fevers, no chills, no vomiting. Pt with occ nausea from taking "so many pills." No CP, no SOB, no focal weakness PMH/Family/Social Past Medical History h/o gallstone pancreatitis sp cholecystectomy cb abscess and ESBL bacteremia h/o STEMI within the past 3 mos gout Past Surgical History Past Surgical Hx: cholecystectomy Social History lives with family in the community Smoking Status: Never smoker Exam/Review of Systems Vital Signs Vitals Vital Signs Date Time Temp Pulse Resp B/P Pulse Ox O2 Delivery O2 Flow Rate FiO2 09/13/17 15:36 70 18 155/73 99 Room Air 09/13/17 13:38 98.1 Exam Exam nad EOMI MMM no mrg lungs clear abd soft no rashes 4+/5 strength in all exts, moves exts freely no edema labs notable for mildly elevated lactic acid now improving also significant hypokalemia and hypomagnesemia Labs Result Diagram: 09/13/17 1030 09/13/17 1030 Medications Medications Current Medications Acetaminophen (Tylenol Tab) 650 mg Q6H PRN PO PAIN LEVEL 1-3 OR FEVER; Start 09/13/17 at 16:00; Status UNV Allopurinol (Zyloprim) 100 mg BID PO ; Start 09/13/17 at 21:00; Status UNV Atorvastatin Calcium (Lipitor) 80 mg DAILY@21 PO ; Start 09/13/17 at 21:00; Status UNV Carvedilol (Coreg) 6.25 mg BID PO ; Start 09/13/17 at 21:00; Status UNV Clopidogrel Bisulfate (plaVIX) 75 mg DAILY PO ; Start 09/14/17 at 09:00; Status UNV Docusate Sodium (Colace) 100 mg Q12H PO ; Start 09/13/17 at 16:00; Status UNV Ferrous Sulfate (Ferrous Sulfate (Ec)) 325 mg DAILY PO ; Start 09/14/17 at 09: 00; Status UNV Pantoprazole (Protonix Tab) 40 mg BID PO ; Start 09/13/17 at 21:00; Status UNV Sucralfate (Carafate Susp) 1 gm QID PO ; Start 09/13/17 at 17:00; Status UNV Ondansetron HCl (Zofran Tab) 4 mg Q6H PRN PO NAUSEA AND/OR VOMITING; Start 08/20 at 16:00; Status UNV Ondansetron HCl (Zofran Inj) 4 mg Q6H PRN IV NAUSEA AND/OR VOMITING; Start 08/20 at 16:00; Status UNV Acetaminophen 650 mg 650 mg Q6H PRN PO PAIN LEVEL 1-3 OR FEVER; Start at 16:00; Status UNV Magnesium Sulfate (Magnesium Sulfate 4 Gm/100 ml) 100 ml @ 25 mls/hr ONCE ONCE IVPB ; Start 09/13/17 at 16:00; Stop 09/13/17 at 19:59; Status UNV LORI MIRANDA MD Sep 13, 2017 16:05
[2017-09-13] MEDS ORDERED: MAGNESIUM SULFATE 4 GM/100 ML 100 ML IVPB ONE (17:30)
[2017-09-13] MEDS: SUCRALFATE (100 MG/ML) 10ML CUP PO SCH ×2 (18:12→20:18)
[2017-09-13] MEDS: ALLOPURINOL 100 MG TAB PO SCH (20:18)
[2017-09-13] MEDS: ATORVASTATIN 80 MG TAB PO SCH (20:18)
[2017-09-13] MEDS: PANTOPRAZOLE (EC) 40 MG TAB PO SCH (20:18)
[2017-09-13] MEDS: DOCUSATE SODIUM 100 MG CAP PO SCH (20:20)
[2017-09-13 20:24] VITALS: Ht 160 cm; Wt 65.9 kg
[2017-09-13 20:38] VITALS: BP 153/72; RESP 18
[2017-09-13] MEDS: ACETAMINOPHEN 325 MG TAB PO PRN (22:22)
[2017-09-13 22:34] LABS: CALCIUM 6.5 mg/dl (8.4-10.2); CREATININE 0.88 mg/dl (0.61-1.24); POTASSIUM 3.7 mmol/L (3.5-5.1)
[2017-09-13] MEDS ORDERED: CALCIUM GLUCONATE 10% 1 GM in DEXTROSE 5% 100 ML IVPB ONE (23:30)
[2017-09-13] MEDS ORDERED: POTASSIUM CHLORIDE 250 ML IVPB ONE (23:59)
[2017-09-14 02:09] VITALS: BP 143/70; RESP 20
[2017-09-14 07:50] VITALS: BP 134/71; RESP 18
[2017-09-14 08:16] LABS: ABNORMAL IP MESSAGE 1; BASOPHILS % 0.3 % (0.0-2.0); EOSINOPHILS # 0.2 10^3/ul (0.0-0.5); EOSINOPHILS % 1.6 % (0.0-7.0); HEMATOCRIT 32.6 % (42.0-52.0); HEMOGLOBIN 10.9 g/dl (14.0-18.0); LYMPHOCYTES # 1.7 10^3/ul (0.8-2.9); LYMPHOCYTES % 15.6 % (15.0-51.0); MEAN CORPUSCULAR HGB CONC 33.4 g/dl (32.0-37.0); MEAN CORPUSCULAR VOLUME 89.8 fl (82.0-101.0); MEAN PLATELET VOLUME 10.3 fl (7.4-10.4); MONOCYTE # 1.5 10^3/ul (0.3-0.9); MONOCYTES % 14.2 % (0.0-11.0); NEUTROPHIL # 7.4 10^3/ul (1.6-7.5); NEUTROPHILS % 67.7 % (39.0-77.0); PLATELET COUNT 288 10^3/UL (140-415); POSITIVE DIFF @See below; RED BLOOD COUNT 3.63 10^6/ul (4.70-6.10); RED CELL DISTRIBUTION WIDTH 15.9 % (11.5-14.5); WHITE BLOOD COUNT 10.9 10^3/ul (4.8-10.8)
[2017-09-14] MEDS: DOCUSATE SODIUM 100 MG CAP PO SCH ×2 (08:24→21:18)
[2017-09-14] MEDS: SUCRALFATE (100 MG/ML) 10ML CUP PO SCH ×4 (08:24→21:17)
[2017-09-14] MEDS: CLOPIDOGREL 75 MG TAB PO SCH (08:25)
[2017-09-14] MEDS: ALLOPURINOL 100 MG TAB PO SCH ×2 (08:25→21:17)
[2017-09-14] MEDS: FERROUS SULFATE (EC) 325 MG TAB PO SCH (08:25)
[2017-09-14] MEDS: PANTOPRAZOLE (EC) 40 MG TAB PO SCH ×2 (08:25→21:17)
[2017-09-14 08:43] LABS: CALCIUM 6.8 mg/dl (8.4-10.2); CREATININE 0.92 mg/dl (0.61-1.24); MAGNESIUM 1.9 mg/dl (1.7-2.5); PHOSPHORUS 2.9 mg/dl (2.5-4.9); POTASSIUM 4.5 mmol/L (3.5-5.1)
[2017-09-14] MEDS ORDERED: POTASSIUM CHLORIDE (SR) 20 MEQ TAB PO STA (08:43)
--- NOTE | 2017-09-14 13:09 | PN ---
Date/Time of Note Date/Time of Note DATE: 09/14/17 TIME: 13:08 Assessment/Plan VTE Prophylaxis VTE Prophylaxis Intervention: SCD's Lines/Catheters [facility] Peripheral IV Urinary Cath still in place: No Assessment/Plan Assessment/Plan 87 yo M with pmhx notable for recent STEMI sp PCI, recent large GIB 2/2 DU here for fatigue. Labs notable for mild lactic acidosis and significant hypokalemia and hypomagnesemia, etio of which are unclear. #electrolyte derangement: etio unclear. Consider decreased PO intake but given pt's normal renal function suspect he should be able to compensate? pt not on any diuretics. Calcium not markedly deranged when adjusted for low albumin. He' s only been on a high dose PPI for a few months also given his recent large GIB it seems high dose PPI therapy is indicated at this time. Family does not report diarrhea . No reason for refeeding. Consider RTA/Bartters or Gitlemans -check urine K and Mg both spot and 24 hours to eval for renal losses-->BOTH PENDING -aggressive repletion #Lactic acidosis: resolved after gentle fluids #poor PO: sp RD eval #recent STEMI: cont plavix, bb, statin (asa on hold for GIB) #recent GIB: cont PPI. May need to talk to GI about PPI given electrolyte derangement. await urine studies #gout: cont allopurinol DVT prophx with SCDs only given recent GIB Subjective 24 Hr Interval Summary Free Text/Dictation looks a little more rested this AM Exam/Review of Systems Vital Signs Vitals Vital Signs Date Time Temp Pulse Resp B/P Pulse Ox O2 Delivery O2 Flow Rate FiO2 09/14/17 07:50 98.2 75 18 134/71 97 09/13/17 15:36 Room Air Intake and Output 09/13/17 09/13/17 09/14/17 15:00 23:00 07:00 Intake Total 200 ml 490 ml Output Total 200 ml 300 ml Balance 0 ml 190 ml Exam nad no mrg lungs clear abd soft no rashes lytes better cultures neg Results Result Diagram: 09/14/17 0700 09/14/17 0700 Results 24 hrs Laboratory Tests Test 09/13/17 13:20 09/13/17 13:33 09/13/17 13:50 09/13/17 22:07 Lactic Acid Level 1.3 1.5 Bedside Urine pH (LAB) 6.5 Bedside Urine Protein (LAB) Trace H Bedside Urine Glucose (UA) Negative Bedside Urine Ketones (LAB) Negative Bedside Urine Blood 1+ H Bedside Urine Nitrite (LAB) Negative Bedside Urine Leukocyte Esterase (L Negative Magnesium Level 0.8 *L 2.2 # Sodium Level 134 L Potassium Level 3.7 Chloride Level 107 Carbon Dioxide Level 22 Anion Gap 9 Blood Urea Nitrogen 10 Creatinine 0.88 Glucose Level 110 Calcium Level 6.5 L Test 09/14/17 07:00 White Blood Count 10.9 H Red Blood Count 3.63 L Hemoglobin 10.9 L Hematocrit 32.6 L Mean Corpuscular Volume 89.8 Mean Corpuscular Hemoglobin 30.0 Mean Corpuscular Hemoglobin Concent 33.4 Red Cell Distribution Width 15.9 H Platelet Count 288 Mean Platelet Volume 10.3 Neutrophils % 67.7 Lymphocytes % 15.6 Monocytes % 14.2 H Eosinophils % 1.6 Basophils % 0.3 Nucleated Red Blood Cells % 0.0 Neutrophils # 7.4 Lymphocytes # 1.7 Monocytes # 1.5 H Eosinophils # 0.2 Basophils # 0.0 Nucleated Red Blood Cells # 0.0 Sodium Level 136 Potassium Level 4.5 Chloride Level 109 Carbon Dioxide Level 21 Anion Gap 11 Blood Urea Nitrogen 11 Creatinine 0.92 Glucose Level 93 Calcium Level 6.8 L Phosphorus Level 2.9 Magnesium Level 1.9 Medications Medications Current Medications Acetaminophen (Tylenol Tab) 650 mg Q6H PRN PO PAIN LEVEL 1-3 OR FEVER Last administered on 09/13/17 22:22; Admin Dose 650 MG; Start 09/13/17 at 16:00 Allopurinol (Zyloprim) 100 mg BID PO Last administered on 09/14/17 08:25; Admin Dose 100 MG; Start 09/13/17 at 21:00 Atorvastatin Calcium (Lipitor) 80 mg DAILY@21 PO Last administered on 20:18; Admin Dose 80 MG; Start 09/13/17 at 21:00 Carvedilol (Coreg) 6.25 mg BID PO Last administered on 09/14/17 08:26; Admin Dose 6.25 MG; Start 09/13/17 at 21:00 Clopidogrel Bisulfate (plaVIX) 75 mg DAILY PO Last administered on 12/12/17at 08:25; Admin Dose 75 MG; Start 09/14/17 at 09:00 Docusate Sodium (Colace) 100 mg Q12 PO Last administered on 09/14/17 08:24; Admin Dose 100 MG; Start 09/13/17 at 21:00 Ferrous Sulfate (Ferrous Sulfate (Ec)) 325 mg DAILY PO Last administered on 08:25; Admin Dose 325 MG; Start 09/14/17 at 09:00 Pantoprazole (Protonix Tab) 40 mg BID PO Last administered on 09/14/17 08:25 ; Admin Dose 40 MG; Start 09/13/17 at 21:00 Ondansetron HCl (Zofran Tab) 4 mg Q6H PRN PO NAUSEA AND/OR VOMITING; Start 08/20 at 16:00 Ondansetron HCl (Zofran Inj) 4 mg Q6H PRN IV NAUSEA AND/OR VOMITING; Start 08/20 at 16:00 LORI MIRANDA MD Sep 14, 2017 13:09
[2017-09-14 16:13] VITALS: BP 142/69; RESP 20
[2017-09-14 19:15] LABS: CALCIUM 7.1 mg/dl (8.4-10.2); CREATININE 0.97 mg/dl (0.61-1.24); MAGNESIUM 1.7 mg/dl (1.7-2.5); POTASSIUM 4.2 mmol/L (3.5-5.1)
[2017-09-14 20:53] VITALS: BP 166/78; RESP 18
[2017-09-14] MEDS: ACETAMINOPHEN 325 MG TAB PO PRN (21:17)
[2017-09-14] MEDS: MAGNESIUM OXIDE 400 MG TAB PO SCH (21:17)
[2017-09-14] MEDS: ATORVASTATIN 80 MG TAB PO SCH (21:17)
[2017-09-14 23:26] LABS: URINE POTASSIUM 34.1 mmol/l
[2017-09-15 01:54] VITALS: BP 152/72; RESP 18
[2017-09-15 05:07] LABS: BASOPHILS % 0.2 % (0.0-2.0); EOSINOPHILS # 0.2 10^3/ul (0.0-0.5); EOSINOPHILS % 2.6 % (0.0-7.0); HEMATOCRIT 30.4 % (42.0-52.0); HEMOGLOBIN 9.9 g/dl (14.0-18.0); LYMPHOCYTES # 1.7 10^3/ul (0.8-2.9); LYMPHOCYTES % 17.7 % (15.0-51.0); MEAN CORPUSCULAR HEMOGLOBIN 29.2 pg (29.0-33.0); MEAN CORPUSCULAR HGB CONC 32.6 g/dl (32.0-37.0); MEAN CORPUSCULAR VOLUME 89.7 fl (82.0-101.0); MEAN PLATELET VOLUME 10.5 fl (7.4-10.4); MONOCYTE # 1.1 10^3/ul (0.3-0.9); MONOCYTES % 11.8 % (0.0-11.0); NEUTROPHIL # 6.2 10^3/ul (1.6-7.5); NEUTROPHILS % 66.9 % (39.0-77.0); PLATELET COUNT 267 10^3/UL (140-415); RED BLOOD COUNT 3.39 10^6/ul (4.70-6.10); RED CELL DISTRIBUTION WIDTH 15.9 % (11.5-14.5); WHITE BLOOD COUNT 9.3 10^3/ul (4.8-10.8)
[2017-09-15 05:29] LABS: CALCIUM 7.8 mg/dl (8.4-10.2); CREATININE 1.06 mg/dl (0.61-1.24); MAGNESIUM 1.6 mg/dl (1.7-2.5); POTASSIUM 4.3 mmol/L (3.5-5.1)
[2017-09-15 07:52] VITALS: BP 168/78; RESP 20
[2017-09-15] MEDS: ALLOPURINOL 100 MG TAB PO SCH ×2 (08:22→20:13)
[2017-09-15] MEDS: SUCRALFATE (100 MG/ML) 10ML CUP PO SCH ×4 (08:22→20:14)
[2017-09-15] MEDS: CLOPIDOGREL 75 MG TAB PO SCH (08:22)
[2017-09-15] MEDS: PANTOPRAZOLE (EC) 40 MG TAB PO SCH ×2 (08:22→20:13)
[2017-09-15] MEDS: DOCUSATE SODIUM 100 MG CAP PO SCH ×2 (08:22→20:14)
[2017-09-15] MEDS: MAGNESIUM OXIDE 400 MG TAB PO SCH ×2 (08:22→20:13)
[2017-09-15] MEDS: FERROUS SULFATE (EC) 325 MG TAB PO SCH (08:22)
[2017-09-15] MEDS ORDERED: MAGNESIUM SULFATE 2 GM/50 ML 50 ML IVPB ONE (12:00)
[2017-09-15 13:56] VITALS: BP 116/57; RESP 20
[2017-09-15 16:08] LABS: CREATININE 1.01 mg/dl (0.61-1.24); POTASSIUM 4.5 mmol/L (3.5-5.1)
--- NOTE | 2017-09-15 17:53 | PN ---
Date/Time of Note Date/Time of Note DATE: 09/15/17 TIME: 17:50 Assessment/Plan VTE Prophylaxis VTE Prophylaxis Intervention: SCD's Lines/Catheters IV [facility] ([facility] [place] Urinary Cath still in place: No Assessment/Plan Assessment/Plan 87 yo M with pmhx notable for recent STEMI sp PCI, recent large GIB 2/2 DU here for fatigue. Labs notable for mild lactic acidosis and significant hypokalemia and hypomagnesemia, etio of which are unclear. #electrolyte derangement: etio unclear. Consider decreased PO intake but given pt's normal renal function suspect he should be able to compensate? pt not on any diuretics. Calcium not markedly deranged when adjusted for low albumin. He' s only been on a high dose PPI for a few months also given his recent large GIB it seems high dose PPI therapy is indicated at this time. Family does not report diarrhea . No reason for refeeding. Consider RTA/Bartters or Gitlemans -serum and urine osms pending to calculate transtubalar K gradient -aggressive repletion -renal consult for further assistance #Lactic acidosis: resolved after gentle fluids #poor PO: sp RD eval #recent STEMI: cont plavix, bb, statin (asa on hold for GIB) #recent GIB: cont PPI. May need to talk to GI about PPI given electrolyte derangement. await osms #gout: cont allopurinol DVT prophx with SCDs only given recent GIB Exam/Review of Systems Vital Signs Vitals Vital Signs Date Time Temp Pulse Resp B/P Pulse Ox O2 Delivery O2 Flow Rate FiO2 09/15/17 13:56 98.1 70 20 116/57 96 09/13/17 15:36 Room Air Intake and Output 09/14/17 09/14/17 09/15/17 15:00 23:00 07:00 Intake Total 800 ml 400 ml Output Total 550 ml 500 ml Balance 250 ml -100 ml Results Result Diagram: 09/15/17 0425 09/15/17 1539 Results 24 hrs Laboratory Tests Test 09/14/17 21:00 09/15/17 04:25 09/15/17 15:39 Urine Random Potassium 24.0 L Urine Total Volume (Potassium) 600 Urine Potassium 24 Hour 20.5 L Urine Potassium Timed 24 White Blood Count 9.3 Red Blood Count 3.39 L Hemoglobin 9.9 L Hematocrit 30.4 L Mean Corpuscular Volume 89.7 Mean Corpuscular Hemoglobin 29.2 Mean Corpuscular Hemoglobin Concent 32.6 Red Cell Distribution Width 15.9 H Platelet Count 267 Mean Platelet Volume 10.5 H Neutrophils % 66.9 Lymphocytes % 17.7 Monocytes % 11.8 H Eosinophils % 2.6 Basophils % 0.2 Nucleated Red Blood Cells % 0.0 Neutrophils # 6.2 Lymphocytes # 1.7 Monocytes # 1.1 H Eosinophils # 0.2 Basophils # 0.0 Nucleated Red Blood Cells # 0.0 Sodium Level 135 131 L Potassium Level 4.3 4.5 Chloride Level 107 104 Carbon Dioxide Level 22 21 Anion Gap 10 11 Blood Urea Nitrogen 13 13 Creatinine 1.06 1.01 Glucose Level 95 113 Calcium Level 7.8 L 8.0 L Magnesium Level 1.6 L 2.0 Medications Medications Current Medications Acetaminophen (Tylenol Tab) 650 mg Q6H PRN PO PAIN LEVEL 1-3 OR FEVER Last administered on 09/14/17 21:17; Admin Dose 650 MG; Start 09/13/17 at 16:00 Allopurinol (Zyloprim) 100 mg BID PO Last administered on 09/15/17 08:22; Admin Dose 100 MG; Start 09/13/17 at 21:00 Atorvastatin Calcium (Lipitor) 80 mg DAILY@21 PO Last administered on 21:17; Admin Dose 80 MG; Start 09/13/17 at 21:00 Carvedilol (Coreg) 6.25 mg BID PO Last administered on 09/15/17 08:23; Admin Dose 6.25 MG; Start 09/13/17 at 21:00 Clopidogrel Bisulfate (plaVIX) 75 mg DAILY PO Last administered on 09/15/17 08:22; Admin Dose 75 MG; Start 09/14/17 at 09:00 Docusate Sodium (Colace) 100 mg Q12 PO Last administered on 09/15/17 08:22; Admin Dose 100 MG; Start 09/13/17 at 21:00 Ferrous Sulfate (Ferrous Sulfate (Ec)) 325 mg DAILY PO Last administered on 08:22; Admin Dose 325 MG; Start 09/14/17 at 09:00 Pantoprazole (Protonix Tab) 40 mg BID PO Last administered on 09/15/17 08:22 ; Admin Dose 40 MG; Start 09/13/17 at 21:00 Ondansetron HCl (Zofran Tab) 4 mg Q6H PRN PO NAUSEA AND/OR VOMITING; Start 08/20 at 16:00 Ondansetron HCl (Zofran Inj) 4 mg Q6H PRN IV NAUSEA AND/OR VOMITING; Start 08/20 at 16:00 Magnesium Oxide (Mag-Ox 400) 400 mg BID PO Last administered on 09/15/17 08: 22; Admin Dose 400 MG; Start 09/14/17 at 21:00 LORI MIRANDA MD Sep 15, 2017 17:53
[2017-09-15 19:39] VITALS: BP 152/74; RESP 20
[2017-09-15] MEDS: ACETAMINOPHEN 325 MG TAB PO PRN (20:13)
[2017-09-15] MEDS: ATORVASTATIN 80 MG TAB PO SCH (20:13)
--- NOTE | 2017-09-15 22:13 | CONS ---
Date/Time of Note Date/Time of Note DATE: 09/15/17 TIME: 22:12 Assessment/Plan Assessment/Plan Additional Assessment/Plan 1. Severe Hypomagnesemia due to decreased PO intake and also due to PPI use 2. Hyponatremia, Hypovolemia 3. Failure to thrive 4. Moderate to severe dehydration 5. Recent STEMI Plan : Thanks for consultation, pt has Mag wastign defect due to PPI and also contributing by Decreaesd PO intake causing hypomagnesemia, S/p IV magnesium replacement today, S/p IVF , now off IVF< Na 131, will continue to monitor electrolytes if Magnesium drops tomorrow then plan is to start Magnesium oxide if Na continues to be low then we will consider starting IVF NS will continue to follow up Consultation Date/Type/Reason Admit Date/Time 09/14/2017 Date of Consultation: Sep 15, 2017 Type of Consultation: NEPHROLOGY Reason for Consultation Hyponatremia, Hypomagnesemia Referring Provider: LORI MIRANDA MD Hx of Present Illness 87 yo M who was recently admitted to [facility] from 08.30-.. Had presented with hypotension possible of iatrogenic origin. During his stay went into hypovolemic shock from GIB from large duodenal ulcer which was managed medically. Given recent hx of STEMI and low + troponin, pt also underwent a stress test which was unremarkable. Since discharge, daughter reports pt's appetite at home has been poor and his energy level has been low. He was brought into [facility] for lethargy weakness and noted to have hypomagnesemia, Hyponatremia. and renal has been consulted for it Constitutional: other (weakness,fatigue, lethargy ), poor po Eyes: no complaints ENT: no complaints Respiratory: no complaints Cardiovascular: no complaints Gastrointestinal: no complaints Genitourinary: no complaints Musculoskeletal: no complaints Past Medical History Medical History: other (GERD) Past Surgical History Past Surgical Hx: cholecystectomy Family History Significant Family History: no pertinent family hx Social History Alcohol Use: none Smoking Status: Never smoker Drug Use: none Exam/Review of Systems Vital Signs Vitals Vital Signs Date Time Temp Pulse Resp B/P Pulse Ox O2 Delivery O2 Flow Rate FiO2 09/15/17 19:39 98.4 79 20 152/74 97 09/13/17 15:36 Room Air Intake and Output 09/14/17 09/14/17 09/15/17 14:59 22:59 06:59 Intake Total 800 ml 400 ml Output Total 550 ml 500 ml Balance 250 ml -100 ml Exam Constitutional: alert Psych: no complaints Head: normocephalic Eyes: nl conjunctiva Neck: non-tender, supple Respiratory: clear to auscultation, normal air movement Cardiovascular: nl pulses, regular rate and rhythm Gastrointestinal: non-tender, soft Musculoskeletal: nl extremities to inspection Extremities: normal pulses Results Result Diagram: 09/15/17 0425 09/15/17 1539 Results 24 hrs Laboratory Tests Test 09/15/17 04:22 09/15/17 04:25 09/15/17 15:39 09/15/17 20:05 Osmolality 274 L White Blood Count 9.3 Red Blood Count 3.39 L Hemoglobin 9.9 L Hematocrit 30.4 L Mean Corpuscular Volume 89.7 Mean Corpuscular Hemoglobin 29.2 Mean Corpuscular Hemoglobin Concent 32.6 Red Cell Distribution Width 15.9 H Platelet Count 267 Mean Platelet Volume 10.5 H Neutrophils % 66.9 Lymphocytes % 17.7 Monocytes % 11.8 H Eosinophils % 2.6 Basophils % 0.2 Nucleated Red Blood Cells % 0.0 Neutrophils # 6.2 Lymphocytes # 1.7 Monocytes # 1.1 H Eosinophils # 0.2 Basophils # 0.0 Nucleated Red Blood Cells # 0.0 Sodium Level 135 131 L Potassium Level 4.3 4.5 Chloride Level 107 104 Carbon Dioxide Level 22 21 Anion Gap 10 11 Blood Urea Nitrogen 13 13 Creatinine 1.06 1.01 Glucose Level 95 113 Calcium Level 7.8 L 8.0 L Magnesium Level 1.6 L 2.0 Urine Osmolality 412 Medications Medications Current Medications Acetaminophen (Tylenol Tab) 650 mg Q6H PRN PO PAIN LEVEL 1-3 OR FEVER Last administered on 09/15/17 20:13; Admin Dose 650 MG; Start 09/13/17 at 16:00 Allopurinol (Zyloprim) 100 mg BID PO Last administered on 09/15/17 20:13; Admin Dose 100 MG; Start 09/13/17 at 21:00 Atorvastatin Calcium (Lipitor) 80 mg DAILY@21 PO Last administered on 20:13; Admin Dose 80 MG; Start 09/13/17 at 21:00 Carvedilol (Coreg) 6.25 mg BID PO Last administered on 09/15/17 20:14; Admin Dose 6.25 MG; Start 09/13/17 at 21:00 Clopidogrel Bisulfate (plaVIX) 75 mg DAILY PO Last administered on 09/15/17 08:22; Admin Dose 75 MG; Start 09/14/17 at 09:00 Docusate Sodium (Colace) 100 mg Q12 PO Last administered on 09/15/17 20:14; Admin Dose 100 MG; Start 09/13/17 at 21:00 Ferrous Sulfate (Ferrous Sulfate (Ec)) 325 mg DAILY PO Last administered on 08:22; Admin Dose 325 MG; Start 09/14/17 at 09:00 Pantoprazole (Protonix Tab) 40 mg BID PO Last administered on 09/15/17 20:13 ; Admin Dose 40 MG; Start 09/13/17 at 21:00 Ondansetron HCl (Zofran Tab) 4 mg Q6H PRN PO NAUSEA AND/OR VOMITING; Start 08/20 at 16:00 Ondansetron HCl (Zofran Inj) 4 mg Q6H PRN IV NAUSEA AND/OR VOMITING; Start 08/20 at 16:00 Magnesium Oxide (Mag-Ox 400) 400 mg BID PO Last administered on 09/15/17 20: 13; Admin Dose 400 MG; Start 09/14/17 at 21:00 LAURIE AHN MD Sep 15, 2017 22:13
[2017-09-16 01:45] VITALS: BP 138/68; RESP 18
[2017-09-16 05:45] LABS: CALCIUM 8.2 mg/dl (8.4-10.2); CREATININE 1.16 mg/dl (0.61-1.24); MAGNESIUM 1.9 mg/dl (1.7-2.5)
[2017-09-16 08:06] VITALS: BP 148/72; RESP 18
[2017-09-16] MEDS: ALLOPURINOL 100 MG TAB PO SCH ×2 (09:33→21:07)
[2017-09-16] MEDS: PANTOPRAZOLE (EC) 40 MG TAB PO SCH ×2 (09:33→21:06)
[2017-09-16] MEDS: DOCUSATE SODIUM 100 MG CAP PO SCH ×2 (09:33→21:07)
[2017-09-16] MEDS: CLOPIDOGREL 75 MG TAB PO SCH (09:33)
[2017-09-16] MEDS: MAGNESIUM OXIDE 400 MG TAB PO SCH ×2 (09:33→21:07)
[2017-09-16] MEDS: FERROUS SULFATE (EC) 325 MG TAB PO SCH (09:33)
[2017-09-16] MEDS: SUCRALFATE (100 MG/ML) 10ML CUP PO SCH ×4 (09:33→21:06)
--- NOTE | 2017-09-16 15:12 | PN ---
Date/Time of Note Date/Time of Note DATE: 09/16/17 TIME: 15:10 Assessment/Plan VTE Prophylaxis VTE Prophylaxis Intervention: SCD's Lines/Catheters IV Catheter Type (from Nrs): Saline Lock Urinary Cath still in place: No Assessment/Plan Assessment/Plan 87 yo M with pmhx notable for recent STEMI sp PCI, recent large GIB 2/2 DU here for fatigue. Labs notable for mild lactic acidosis and significant hypokalemia and hypomagnesemia, likely from PPI #electrolyte derangement: discussed with renal. likely 2/2 PPI PO repletion regimen: 400 magOx BID and KCl 20 mEq daily #Lactic acidosis: resolved after gentle fluids #poor PO: sp RD eval #recent STEMI: cont plavix, bb, statin (asa on hold for GIB) #recent GIB: cont PPI. #gout: cont allopurinol DVT prophx with SCDs only given recent GIB home in AM with HH Subjective 24 Hr Interval Summary Free Text/Dictation no complaints Exam/Review of Systems Vital Signs Vitals Vital Signs Date Time Temp Pulse Resp B/P Pulse Ox O2 Delivery O2 Flow Rate FiO2 09/16/17 08:06 98.2 65 18 148/72 90 09/13/17 15:36 Room Air Intake and Output 09/15/17 09/15/17 09/16/17 15:00 23:00 07:00 Intake Total 50 ml 1080 ml 500 ml Output Total 750 ml 650 ml Balance 50 ml 330 ml -150 ml Exam nad no mrg lungs clear abd soft no rashes labs reviewed Results Result Diagram: 09/15/17 0425 09/16/17 0432 Results 24 hrs Laboratory Tests Test 09/15/17 15:39 09/15/17 20:05 09/16/17 04:32 Sodium Level 131 L 131 L Potassium Level 4.5 5.0 Chloride Level 104 104 Carbon Dioxide Level 21 21 Anion Gap 11 11 Blood Urea Nitrogen 13 13 Creatinine 1.01 1.16 Glucose Level 113 109 Calcium Level 8.0 L 8.2 L Magnesium Level 2.0 1.9 Urine Osmolality 412 Medications Medications Current Medications Acetaminophen (Tylenol Tab) 650 mg Q6H PRN PO PAIN LEVEL 1-3 OR FEVER Last administered on 09/15/17t 20:13; Admin Dose 650 MG; Start 09/13/17 at 16:00 Allopurinol (Zyloprim) 100 mg BID PO Last administered on 09/16/17 09:33; Admin Dose 100 MG; Start 09/13/17 at 21:00 Atorvastatin Calcium (Lipitor) 80 mg DAILY@21 PO Last administered on 20:13; Admin Dose 80 MG; Start 09/13/17 at 21:00 Carvedilol (Coreg) 6.25 mg BID PO Last administered on 09/16/17 09:34; Admin Dose 6.25 MG; Start 09/13/17 at 21:00 Clopidogrel Bisulfate (plaVIX) 75 mg DAILY PO Last administered on 09/16/17 09:33; Admin Dose 75 MG; Start 09/14/17 at 09:00 Docusate Sodium (Colace) 100 mg Q12 PO Last administered on 09/16/17 09:33; Admin Dose 100 MG; Start 09/13/17 at 21:00 Ferrous Sulfate (Ferrous Sulfate (Ec)) 325 mg DAILY PO Last administered on 09:33; Admin Dose 325 MG; Start 09/14/17 at 09:00 Pantoprazole (Protonix Tab) 40 mg BID PO Last administered on 09/16/17 09:33 ; Admin Dose 40 MG; Start 09/13/17 at 21:00 Ondansetron HCl (Zofran Tab) 4 mg Q6H PRN PO NAUSEA AND/OR VOMITING; Start 08/20 at 16:00 Ondansetron HCl (Zofran Inj) 4 mg Q6H PRN IV NAUSEA AND/OR VOMITING; Start 08/20 at 16:00 Magnesium Oxide (Mag-Ox 400) 400 mg BID PO Last administered on 09/16/17 09: 33; Admin Dose 400 MG; Start 09/14/17 at 21:00 LORI MIRANDA MD Sep 16, 2017 15:12
[2017-09-16 15:38] VITALS: BP 140/74; RESP 18
[2017-09-16 20:05] VITALS: BP 118/67; RESP 20
[2017-09-16] MEDS: ATORVASTATIN 80 MG TAB PO SCH (21:06)
--- NOTE | 2017-09-16 21:48 | CONS ---
Date/Time of Note Date/Time of Note DATE: 09/16/17 TIME: 21:46 Assessment/Plan Assessment/Plan Chief Complaint/Hosp Course 87 yo M who was recently admitted to [facility] from .-12.5. Had presented with hypotension possible of iatrogenic origin. During his stay went into hypovolemic shock from GIB from large duodenal ulcer which was managed medically. Given recent hx of STEMI and low + troponin, pt also underwent a stress test which was unremarkable. Since discharge, daughter reports pt's appetite at home has been poor and his energy level has been low. He was brought into [facility] for lethargy weakness and noted to have hypomagnesemia, Hyponatremia. and renal has been consulted for it Problems: Additional Assessment/Plan 1. Severe Hypomagnesemia due to decreased PO intake and also due to PPI use 2. Hyponatremia, Hypovolemia 3. Failure to thrive 4. Moderate to severe dehydration 5. Recent STEMI Plan : pt has Mag wasting defect due to PPI and also contributing by Decreaesd PO intake causing hypomagnesemia, Mag 1.9, Na 131- continue Mag oxide 400mg pO BID will continue to monitor electrolytes if Na continues to be low then we will consider starting IVF NS will follow up Consultation Date/Type/Reason Admit Date/Time Sep 14, 2017 at 23:04 Initial Consult Date 09/15/17 Type of Consultation: NEPHROLOGY Referring Provider: LORI MIRANDA MD 24 HR Interval Summary Free Text/Dictation Na 131, Mag 1.9, BP stable Exam/Review of Systems Vital Signs Vitals Vital Signs Date Time Temp Pulse Resp B/P Pulse Ox O2 Delivery O2 Flow Rate FiO2 09/16/17 20:05 97.5 71 20 118/67 99 09/13/17 15:36 Room Air Intake and Output 09/15/17 09/15/17 09/16/17 15:00 23:00 07:00 Intake Total 50 ml 1080 ml 500 ml Output Total 750 ml 650 ml Balance 50 ml 330 ml -150 ml Exam Constitutional: alert Neck: non-tender, supple Respiratory: clear to auscultation, normal air movement Cardiovascular: nl pulses, regular rate and rhythm Gastrointestinal: non-tender, soft Musculoskeletal: nl extremities to inspection Extremities: normal pulses Results Result Diagram: 09/15/17 0425 09/16/17 0432 Results 24 hrs Laboratory Tests Test 09/16/17 04:32 Sodium Level 131 L Potassium Level 5.0 Chloride Level 104 Carbon Dioxide Level 21 Anion Gap 11 Blood Urea Nitrogen 13 Creatinine 1.16 Glucose Level 109 Calcium Level 8.2 L Magnesium Level 1.9 Medications Medications Current Medications Acetaminophen (Tylenol Tab) 650 mg Q6H PRN PO PAIN LEVEL 1-3 OR FEVER Last administered on 09/15/17 20:13; Admin Dose 650 MG; Start 09/13/17 at 16:00 Allopurinol (Zyloprim) 100 mg BID PO Last administered on 09/16/17 21:07; Admin Dose 100 MG; Start 09/13/17 at 21:00 Atorvastatin Calcium (Lipitor) 80 mg DAILY@21 PO Last administered on 21:06; Admin Dose 80 MG; Start 09/13/17 at 21:00 Carvedilol (Coreg) 6.25 mg BID PO Last administered on 09/16/17 21:06; Admin Dose 6.25 MG; Start 09/13/17 at 21:00 Clopidogrel Bisulfate (plaVIX) 75 mg DAILY PO Last administered on 09/16/17 09:33; Admin Dose 75 MG; Start 09/14/17 at 09:00 Docusate Sodium (Colace) 100 mg Q12 PO Last administered on 09/16/17 21:07; Admin Dose 100 MG; Start 09/13/17 at 21:00 Ferrous Sulfate (Ferrous Sulfate (Ec)) 325 mg DAILY PO Last administered on 09:33; Admin Dose 325 MG; Start 09/14/17 at 09:00 Pantoprazole (Protonix Tab) 40 mg BID PO Last administered on 09/16/17 21:06 ; Admin Dose 40 MG; Start 09/13/17 at 21:00 Ondansetron HCl (Zofran Tab) 4 mg Q6H PRN PO NAUSEA AND/OR VOMITING; Start 08/20 at 16:00 Ondansetron HCl (Zofran Inj) 4 mg Q6H PRN IV NAUSEA AND/OR VOMITING; Start 08/20 at 16:00 Magnesium Oxide (Mag-Ox 400) 400 mg BID PO Last administered on 09/16/17 21: 07; Admin Dose 400 MG; Start 12/12/17 at 21:00 Potassium Chloride (Klor-Con 20) 20 meq DAILY PO ; Start 09/17/17 at 09:00 LAURIE AHN MD Sep 16, 2017 21:47
[2017-09-17 01:39] VITALS: BP 150/73; RESP 19
[2017-09-17 06:08] LABS: CALCIUM 8.1 mg/dl (8.4-10.2); CREATININE 1.1 mg/dl (0.61-1.24); MAGNESIUM 1.7 mg/dl (1.7-2.5); POTASSIUM 5.5 mmol/L (3.5-5.1)
[2017-09-17 07:25] VITALS: BP 127/63; RESP 19
[2017-09-17] MEDS ORDERED: POTASSIUM CHLORIDE (SR) 20 MEQ TAB PO SCH (09:00)
[2017-09-17] MEDS ORDERED: POTA-57 PO (09:31)
[2017-09-17] MEDS ORDERED: MAGN400T27 PO (09:31)
[2017-09-17] MEDS ORDERED: PANT40TA4 PO (09:38)
--- NOTE | 2017-09-17 09:44 | PDOCDIS ---
Discharge Instructions CONDITION Patient Condition: Stable FOLLOW UP/APPOINTMENTS Follow-up Plan Within 4 weeks follow up with the kidney, heart, and stomach specialists for refills on your medications Kidneys Dr Silverio Fierro Office Address [address] [facility] [address] [place] [address] Puma Vitale Office Address [address] Jerry Burgess Office Address [address] [facility] [place] [address] Office LORI MIRANDA MD Sep 17, 2017 09:44
[2017-09-17] MEDS: FERROUS SULFATE (EC) 325 MG TAB PO SCH (09:48)
[2017-09-17] MEDS: MAGNESIUM OXIDE 400 MG TAB PO SCH (09:49)
[2017-09-17] MEDS: ALLOPURINOL 100 MG TAB PO SCH (09:49)
[2017-09-17] MEDS: PANTOPRAZOLE (EC) 40 MG TAB PO SCH (09:49)
--- NOTE | 2017-09-17 09:49 | DS ---
Date/Time of Note Date/Time of Note DATE: 09/17/17 TIME: 09:45 Discharge Summary Admission/Discharge Info Admit Date/Time Sep 14, 2017 at 23:04 Discharge Date/Time Discharge Diagnosis hypomagnesemia, hypokalemia from PPI Patient Condition: Stable Consults nephrology Hx of Present Illness CC feels unwell HPI 87 yo M well known to me from multiple admissions over the past few mos. Most recently here 11.27-12.5. Had presented with hypotension possible of iatrogenic origin. During his stay went into hypovolemic shock from GIB from large duodenal ulcer which was managed medically. Given recent hx of STEMI and low + troponin, pt also underwent a stress test which was unremarkable. Since discharge, daughter reports pt's appetite at home has been poor and his energy level has been low. The visiting RN arranged by CM only came out one time and the PT only came out 1 time as well. Given his low energy and c/o feeling overall "unwell" daughter brought pt back to the hospital. No fevers, no chills, no vomiting. Pt with occ nausea from taking "so many pills." No CP, no SOB, no focal weakness Hospital Course Pt's magnesium and potassium aggressively replated. Nephrology consulted. Etio of hypomagnesemia and hypokalemia thought to be due to PPI which pt needs given recent large GIB from duodenal ulcer. Nephrology assisted in determining PO electrolyte replacements on which pt will be sent home. Pt back to baseline by date of discharge. Updated meds list given to daughter Importance of specialist follow up dw daughter PCP is CC'ed on this dc summary Home Meds Active Scripts Pantoprazole* (Pantoprazole*) 40 Mg Tablet.dr, 40 MG PO BID for 30 Days, #60 TAB Prov:LORI MIRANDA MD 09/17/17 Magnesium Oxide* (Mag-Oxide*) 400 Mg Tablet, 400 MG PO BID for 30 Days, #60 TAB Prov:LORI MIRANDA MD 09/17/17 Potassium Chloride* (Klor-Con*) 20 Meq Tabsr, 20 MEQ PO DAILY for 30 Days, #30 TAB Prov:LORI MIRANDA MD 09/17/17 Carvedilol* (Carvedilol*) 3.125 Mg Tablet, 6.25 MG PO BID, #60 TAB 1 Refill Prov:MINA CALI. 09/07/17 Sucralfate* (Carafate*) 1 Gm/10 Ml Susp, 1 GM PO QID, #120 2 Refills Prov:CELI CALIP S. 09/07/17 Docusate Sodium (Dok) 100 Mg Capsule, 100 MG PO Q12H for 7 Days, #10 CAP OTC Prov:REZA ARZATE MD 08/25/17 Acetaminophen (MAPAP) 325 Mg Tablet, 650 MG PO Q6H Y for PAIN LEVEL 1-3 OR FEVER for 1 Day, #1 TAB OTC Prov:REZA ARZATE MD 08/25/17 [prednisone taper] No Conflict Check Prov:LORI MIRANDA MD 08/17/17 Atorvastatin* (Atorvastatin*) 80 Mg Tablet, 80 MG PO DAILY@21 for 30 Days, #30 TAB Prov:LORI MIRANDA MD 08/17/17 Clopidogrel Bisulfate (Clopidogrel) 75 Mg Tablet, 75 MG PO DAILY for 30 Days, # 30 TAB Prov:LORI MIRANDA MD 08/17/17 Reported Medications Ferrous Sulfate* (Ferrous Sulfate*) 325 Mg Tabec, 325 MG PO DAILY, TAB 07/21/17 Allopurinol* (Zyloprim*) 100 Mg Tablet, 100 MG PO BID 02/17/13 Follow-up Plan Within 4 weeks follow up with the kidney, heart, and stomach specialists for refills on your medications Kidneys Dr Laurie Fierro Office Address [address] [facility] [address] [place] [address] Puma Vitale Office Address [address] [facility] [address] [place] [address] Jerry Burgess Office Address [address] [facility] [address] [facility] [place] [address] Office Primary Care Provider Meg Quesada MD Time spent on discharge: > 30 minutes Pending Labs Laboratory Tests Test 09/17/17 04:50 Sodium Level 132mmol/L (135-144) Potassium Level 5.5mmol/L (3.5-5.1) Chloride Level 103mmol/L (97-110) Carbon Dioxide Level 23mmol/L (21-31) Anion Gap 12 (8-16) Blood Urea Nitrogen 19mg/dl (7-20) Creatinine 1.10mg/dl (0.61-1.24) Glucose Level 94mg/dl (70-220) Calcium Level 8.1mg/dl (8.4-10.2) Magnesium Level 1.7mg/dl (1.7-2.5) Copies To: CC: MEG QUESADA MD; LAURIE FIERRO MD, ELLEN MD Sep 17, 2017 09:48
[2017-09-17] MEDS: CLOPIDOGREL 75 MG TAB PO SCH (09:50)
[2017-09-17] MEDS: DOCUSATE SODIUM 100 MG CAP PO SCH (09:50)
[2017-09-17] MEDS: SUCRALFATE (100 MG/ML) 10ML CUP PO SCH (09:52)
--- NOTE | 2017-09-17 21:48 | CONS ---
Date/Time of Note Date/Time of Note DATE: 09/17/17 TIME: 21:47 Assessment/Plan Assessment/Plan Chief Complaint/Hosp Course 87 yo M who was recently admitted to [facility] from .-12.5. Had presented with hypotension possible of iatrogenic origin. During his stay went into hypovolemic shock from GIB from large duodenal ulcer which was managed medically. Given recent hx of STEMI and low + troponin, pt also underwent a stress test which was unremarkable. Since discharge, daughter reports pt's appetite at home has been poor and his energy level has been low. He was brought into [facility] for lethargy weakness and noted to have hypomagnesemia, Hyponatremia. and renal has been consulted for it Problems: Additional Assessment/Plan 1. Severe Hypomagnesemia due to decreased PO intake and also due to PPI use 2. Hyponatremia, Hypovolemia 3. Failure to thrive 4. Moderate to severe dehydration 5. Recent STEMI Plan : pt has Mag wasting defect due to PPI and also contributing by Decreaesd PO intake causing hypomagnesemia, Mag 1.9, Na 131- continue Mag oxide 400mg pO BID - ok to d/.c home with mag oxide no KCL on discharge due to high K Consultation Date/Type/Reason Admit Date/Time Sep 14, 2017 at 0800 Initial Consult Date 09/15/17 Type of Consultation: NEPHROLOGY Referring Provider: LORI MIRANDA MD 24 HR Interval Summary Free Text/Dictation doing ok, BP stable, Mag stable Exam/Review of Systems Vital Signs Vitals Vital Signs Date Time Temp Pulse Resp B/P Pulse Ox O2 Delivery O2 Flow Rate FiO2 09/17/17 07:25 98.7 71 19 127/63 99 09/13/17 15:36 Room Air Intake and Output 09/16/17 09/16/17 09/17/17 15:00 23:00 07:00 Intake Total 540 ml 800 ml Output Total 700 ml 1075 ml Balance -160 ml -275 ml Results Result Diagram: 09/15/17 0425 09/17/17 0450 Results 24 hrs Laboratory Tests Test 09/17/17 04:50 Sodium Level 132 L Potassium Level 5.5 H Chloride Level 103 Carbon Dioxide Level 23 Anion Gap 12 Blood Urea Nitrogen 19 Creatinine 1.10 Glucose Level 94 Calcium Level 8.1 L Magnesium Level 1.7 LAURIE AHN MD Sep 17, 2017 21:48
== END 2017-09-17 11:09 | disposition home health service (06) | DRG 641 ==
LOC: E/R 09:42 → MS1 13:53 → OBSVTOIN 09-14 23:04 → MS1 09-16 15:04
PROVIDERS: ADMIT Family Medicine; ATTEND Family Medicine
DX: E83.42 Hypomagnesemia (principal); E87.2 Acidosis; K26.9 Duodenal ulcer, unspecified as acute or chronic, without hemorrhage or perforation; E87.1 Hypo-osmolality and hyponatremia; E87.6 Hypokalemia; T47.1X5A Adverse effect of other antacids and anti-gastric-secretion drugs, initial encounter; I25.2 Old myocardial infarction; M1A.9XX0 Chronic gout, unspecified, without tophus (tophi); R62.7 Adult failure to thrive; M10.9 Gout, unspecified; E86.0 Dehydration; Y92.019 Unspecified place in single-family (private) house as the place of occurrence of the external cause
CPT/HCPCS: 36415; 71010; 80048; 80053; 81001; 81003; 83605; 83735; 83930; 83935; 84100; 84133; 84436; 84479; 84484; 85025; 87040; 87081; 87086; 87400; 92610; 93005; 96374; 97116; 97163; 97164; 97166; 97530; 97535; G0378; J3475; J3480; J7030

== ENCOUNTER 2017-12-16 09:59 | Emergency (ER) | END 2017-12-16 13:08 | disposition home or self-care (01) ==

== ENCOUNTER 2017-12-19 13:56 | Inpatient (IN) | END 2017-12-22 16:50 | disposition home or self-care (01) | DRG 543 ==

== ENCOUNTER 2018-01-31 07:41 | Emergency (ER) | END 2018-01-31 12:55 | disposition home or self-care (01) ==